=== PATIENT | female | born 1940 | race Caucasian/White ===

== ENCOUNTER → 2018-04-22 00:51 | Outpatient (CLI) | payer MEDICARE, MEDICAID, SELFPAY ==
[2018-04-22 13:07] LABS: Prothrombin Time 19.4 sec (9.3-10.8)
== END ==
PROVIDERS: PCP Family Medicine; Visit Provider Family Medicine
DX: I48.91 Unspecified atrial fibrillation (principal); Z79.01 Long term (current) use of anticoagulants
CPT/HCPCS: 36415; 85610

== ENCOUNTER → 2018-05-10 02:34 | Outpatient (CLI) | payer MEDICARE, MEDICAID, SELFPAY ==
[2018-05-10 13:21] LABS: INR 2.2 (1.0-3.5); Prothrombin Time 21.3 sec (9.3-10.8)
== END ==
PROVIDERS: PCP Family Medicine; Visit Provider Family Medicine
DX: I48.91 Unspecified atrial fibrillation (principal); Z79.01 Long term (current) use of anticoagulants
CPT/HCPCS: 36415; 85610

== ENCOUNTER 2018-06-02 02:14 | Outpatient (CLI) | payer MEDICARE, MEDICAID, SELFPAY ==
[2018-06-02 13:03] LABS: INR 1.9 (1.0-3.5)
== END 2018-06-02 02:34 ==
PROVIDERS: PCP Family Medicine; Visit Provider Family Medicine
DX: I48.91 Unspecified atrial fibrillation (principal); Z79.01 Long term (current) use of anticoagulants
CPT/HCPCS: 36415; 85610

== ENCOUNTER 2018-06-28 01:46 | Outpatient (CLI) | payer MEDICARE, MEDICAID, SELFPAY ==
[2018-06-28 11:35] LABS: INR 1.6 (1.0-3.5)
== END 2018-06-28 02:06 ==
PROVIDERS: PCP Family Medicine; Visit Provider Family Medicine
DX: I48.91 Unspecified atrial fibrillation (principal); Z79.01 Long term (current) use of anticoagulants
CPT/HCPCS: 36415; 85610

== ENCOUNTER 2018-07-07 02:21 | Outpatient (CLI) | payer MEDICARE, MEDICAID, SELFPAY ==
[2018-07-07 13:12] LABS: HCT 40.1 % (36.0-46.0); HGB 13.2 g/dL (12.0-15.5); Mean Corp. HGB Concentration 32.9 g/dL (32.0-36.0); Mean Corpuscular Hemoglobin 33.7 pg (27.0-33.0); Mean Corpuscular Volume 102.3 fL (80-95); Mean Platelet Volume 11.1 fL (8.0-11.0); Platelet Count 189 x1000/uL (130-400); RBC 3.92 m/cumm (4.00-5.20); RBC Distribution Width 13.4 % (11.7-14.6); White Blood Cell Count 6.71 k/cumm (4.4-10.8)
[2018-07-07 13:24] LABS: INR 1.4 (1.0-3.5); Prothrombin Time 13.9 sec (9.3-10.8)
[2018-07-07 13:36] LABS: Iron 81 ug/dL (50-175)
[2018-07-07 13:38] LABS: ALT 16 U/L (12-78); AST 18 U/L (15-37); Albumin 3.2 g/dL (3.4-5.0); Alkaline Phosphatase 114 U/L (46-116); Anion Gap 7.9 mmol/L (3-11); BUN 15 mg/dL (7-18); Bilirubin, Total 0.7 mg/dL (0.2-1.0); CO2 32.1 mmol/L (21.0-32.0); CREATININE 1.01 mg/dL (0.55-1.02); Calcium 9.5 mg/dL (8.5-10.1); Chloride 97 mmol/L (98-107); Estimated GFR 52.87 (mL/min/1.73m2); Glucose 93 mg/dL (70-100); Magnesium 1.5 mg/dL (1.8-2.4); Potassium 4.6 mmol/L (3.5-5.1); Sodium 137 mmol/L (136-145); TSH 1.41 uIU/mL (0.358-3.74); Total Protein 7.2 g/dL (6.4-8.2)
== END 2018-07-07 02:41 ==
PROVIDERS: PCP Family Medicine; Visit Provider Family Medicine
DX: D64.9 Anemia, unspecified (principal); E03.9 Hypothyroidism, unspecified; I48.91 Unspecified atrial fibrillation; Z79.01 Long term (current) use of anticoagulants
CPT/HCPCS: 36415; 80053; 85027; 83540; 83735; 84443; 85610

== ENCOUNTER 2018-07-14 01:00 | Outpatient (CLI) | payer MEDICARE, MEDICAID, SELFPAY ==
[2018-07-14 13:12] LABS: INR 2.4 (1.0-3.5); Prothrombin Time 22.3 sec (9.3-10.8)
== END 2018-07-14 01:20 ==
PROVIDERS: PCP Family Medicine; Visit Provider Family Medicine
DX: Z79.01 Long term (current) use of anticoagulants (principal); I48.91 Unspecified atrial fibrillation
CPT/HCPCS: 36415; 85610

== ENCOUNTER 2018-08-04 01:44 | Outpatient (CLI) | payer MEDICARE, MEDICAID, SELFPAY ==
[2018-08-04 11:37] LABS: INR 3.4 (1.0-3.5); Prothrombin Time 31.4 sec (9.3-10.8)
== END 2018-08-04 02:04 ==
PROVIDERS: PCP Family Medicine; Visit Provider Family Medicine
DX: I48.91 Unspecified atrial fibrillation (principal); Z79.01 Long term (current) use of anticoagulants
CPT/HCPCS: 36415; 85610

== ENCOUNTER 2018-08-10 01:33 | Outpatient (CLI) | payer MEDICARE, MEDICAID, SELFPAY ==
[2018-08-10 13:33] LABS: INR 2.6 (1.0-3.5); Prothrombin Time 24.9 sec (9.3-10.8)
== END 2018-08-10 01:53 ==
PROVIDERS: PCP Family Medicine; Visit Provider Family Medicine
DX: I48.91 Unspecified atrial fibrillation (principal); Z79.01 Long term (current) use of anticoagulants
CPT/HCPCS: 36415; 85610

== ENCOUNTER 2018-08-18 02:15 | Outpatient (CLI) | payer MEDICARE, MEDICAID, SELFPAY ==
[2018-08-18 11:46] LABS: INR 2.4 (1.0-3.5); Prothrombin Time 23.1 sec (9.3-10.8)
== END 2018-08-18 02:35 ==
PROVIDERS: PCP Family Medicine; Visit Provider Family Medicine
DX: I48.91 Unspecified atrial fibrillation (principal); Z79.01 Long term (current) use of anticoagulants
CPT/HCPCS: 36415; 85610

== ENCOUNTER 2018-09-01 01:59 | Outpatient (CLI) | payer MEDICARE, MEDICAID, SELFPAY ==
[2018-09-01 11:39] LABS: Prothrombin Time 44.9 sec (9.3-10.8)
[2018-09-01 11:46] LABS: INR 4.9 (1.0-3.5)
== END 2018-09-01 02:19 ==
PROVIDERS: PCP Family Medicine; Visit Provider Family Medicine
DX: I48.91 Unspecified atrial fibrillation (principal); Z79.01 Long term (current) use of anticoagulants
CPT/HCPCS: 36415; 85610

== ENCOUNTER 2018-09-02 08:18 | Outpatient (CLI) | payer MEDICARE, MEDICAID, SELFPAY ==
[2018-09-02 13:32] LABS: Prothrombin Time 50.5 sec (9.3-11.0)
== END 2018-09-02 08:38 ==
PROVIDERS: PCP Family Medicine; Visit Provider Family Medicine
DX: Z79.01 Long term (current) use of anticoagulants (principal); I48.91 Unspecified atrial fibrillation
CPT/HCPCS: 36415; 85610

== ENCOUNTER 2018-09-05 02:27 | Outpatient (CLI) | payer MEDICARE, MEDICAID, SELFPAY ==
[2018-09-05 13:26] LABS: INR 2.2 (1.0-3.5); Prothrombin Time 22.6 sec (9.3-11.0)
== END 2018-09-05 02:47 ==
PROVIDERS: PCP Family Medicine; Visit Provider Family Medicine
DX: I48.91 Unspecified atrial fibrillation (principal); Z79.01 Long term (current) use of anticoagulants
CPT/HCPCS: 36415; 85610

== ENCOUNTER 2018-09-22 02:37 | Outpatient (CLI) | payer MEDICARE, MEDICAID, SELFPAY ==
[2018-09-22 11:57] LABS: Prothrombin Time 40.7 sec (9.3-11.0)
== END 2018-09-22 02:57 ==
PROVIDERS: PCP Family Medicine; Visit Provider Family Medicine
DX: I48.91 Unspecified atrial fibrillation (principal); Z79.01 Long term (current) use of anticoagulants
CPT/HCPCS: 36415; 85610

== ENCOUNTER 2018-10-04 02:04 | Outpatient (CLI) | payer MEDICARE, MEDICAID, SELFPAY ==
[2018-10-04 16:41] LABS: INR 2.8 (0.9-1.1); Prothrombin Time 28.4 sec (9.3-11.0)
== END 2018-10-04 02:24 ==
PROVIDERS: PCP Family Medicine; Visit Provider Family Medicine
DX: I48.91 Unspecified atrial fibrillation (principal); Z79.01 Long term (current) use of anticoagulants
CPT/HCPCS: 36415; 85610

== ENCOUNTER 2018-10-18 11:03 | Outpatient (CLI) | payer MEDICARE, MEDICAID, SELFPAY ==
[2018-10-18 13:49] LABS: INR 2.6 (0.9-1.1); Prothrombin Time 26.6 sec (9.3-11.0)
== END 2018-10-18 11:23 ==
PROVIDERS: PCP Family Medicine; Visit Provider Family Medicine
DX: I48.91 Unspecified atrial fibrillation (principal); Z79.01 Long term (current) use of anticoagulants
CPT/HCPCS: 36415; 85610

== ENCOUNTER 2018-11-03 07:33 | Outpatient (CLI) | payer MEDICARE, MEDICAID, SELFPAY ==
[2018-11-03 13:25] LABS: INR 3.5 (0.9-1.1); Prothrombin Time 35.5 sec (9.3-11.0)
== END 2018-11-03 07:53 ==
PROVIDERS: PCP Family Medicine; Visit Provider Family Medicine
DX: I48.91 Unspecified atrial fibrillation (principal); Z79.01 Long term (current) use of anticoagulants
CPT/HCPCS: 36415; 85610

== ENCOUNTER 2018-11-17 11:07 | Outpatient (CLI) | payer MEDICARE, MEDICAID, SELFPAY ==
[2018-11-17 12:59] LABS: Prothrombin Time 50.9 sec (9.3-11.0)
== END 2018-11-17 11:27 ==
PROVIDERS: PCP Family Medicine; Visit Provider Family Medicine
DX: I48.91 Unspecified atrial fibrillation (principal); Z79.01 Long term (current) use of anticoagulants
CPT/HCPCS: 36415; 85610

== ENCOUNTER 2018-11-18 10:35 | Outpatient (CLI) | payer MEDICARE, MEDICAID, SELFPAY ==
[2018-11-18 13:19] LABS: Prothrombin Time 63.4 sec (9.3-11.0)
[2018-11-18 13:35] LABS: INR 6.2 (0.9-1.1)
== END 2018-11-18 10:55 ==
PROVIDERS: PCP Family Medicine; Visit Provider Family Medicine
DX: I48.91 Unspecified atrial fibrillation (principal); Z79.01 Long term (current) use of anticoagulants
CPT/HCPCS: 36415; 85610

== ENCOUNTER 2018-11-21 10:08 | Outpatient (CLI) | payer MEDICARE, MEDICAID, SELFPAY ==
[2018-11-21 12:21] LABS: INR 2.8 (0.9-1.1); Prothrombin Time 28.4 sec (9.3-11.0)
== END 2018-11-21 10:28 ==
PROVIDERS: PCP Family Medicine; Visit Provider Family Medicine
DX: I48.91 Unspecified atrial fibrillation (principal); Z79.01 Long term (current) use of anticoagulants
CPT/HCPCS: 36415; 85610

== ENCOUNTER 2018-11-29 02:54 | Outpatient (CLI) | payer MEDICARE, MEDICAID, SELFPAY ==
[2018-11-29 12:56] LABS: INR 1.5 (0.9-1.1)
== END 2018-11-29 03:14 ==
PROVIDERS: PCP Family Medicine; Visit Provider Family Medicine
DX: I48.91 Unspecified atrial fibrillation (principal); Z79.01 Long term (current) use of anticoagulants
CPT/HCPCS: 36415; 85610

== ENCOUNTER 2018-12-06 02:27 | Outpatient (CLI) | payer MEDICARE, MEDICAID, SELFPAY ==
[2018-12-06 13:04] LABS: INR 1.7 (0.9-1.1); Prothrombin Time 16.9 sec (9.3-11.0)
== END 2018-12-06 02:47 ==
PROVIDERS: PCP Family Medicine; Visit Provider Family Medicine
DX: I48.91 Unspecified atrial fibrillation (principal); Z79.01 Long term (current) use of anticoagulants
CPT/HCPCS: 36415; 85610

== ENCOUNTER 2018-12-15 00:50 | Outpatient (CLI) | payer MEDICARE, MEDICAID, SELFPAY ==
[2018-12-15 12:52] LABS: INR 2.9 (0.9-1.1); Prothrombin Time 29.3 sec (9.3-11.0)
== END 2018-12-15 01:10 ==
PROVIDERS: PCP Family Medicine; Visit Provider Family Medicine
DX: I48.91 Unspecified atrial fibrillation (principal); Z79.01 Long term (current) use of anticoagulants
CPT/HCPCS: 36415; 85610

== ENCOUNTER 2018-12-30 01:31 | Outpatient (CLI) | payer MEDICARE, MEDICAID, SELFPAY ==
[2018-12-30 12:36] LABS: INR 1.6 (0.9-1.1); Prothrombin Time 16.1 sec (9.3-11.0)
[2018-12-30 12:49] LABS: ALT 17 U/L (12-78); AST 20 U/L (15-37); Albumin 3.2 g/dL (3.4-5.0); Alkaline Phosphatase 101 U/L (46-116); Anion Gap 7.7 mmol/L (3-11); BUN 11 mg/dL (7-18); Bilirubin, Total 0.5 mg/dL (0.2-1.0); CO2 29.3 mmol/L (21.0-32.0); Calcium 8.7 mg/dL (8.5-10.1); Chloride 97 mmol/L (98-107); Estimated GFR 53.48 (mL/min/1.73m2); Glucose 87 mg/dL (70-100); Magnesium 1.2 mg/dL (1.8-2.4); Potassium 4.1 mmol/L (3.5-5.1); Sodium 134 mmol/L (136-145); Total Protein 6.9 g/dL (6.4-8.2)
== END 2018-12-30 01:51 ==
PROVIDERS: PCP Family Medicine; Visit Provider Family Medicine
DX: I10 Essential (primary) hypertension (principal); E83.42 Hypomagnesemia; I48.91 Unspecified atrial fibrillation; Z79.01 Long term (current) use of anticoagulants
CPT/HCPCS: 36415; 80053; 83735; 85610

== ENCOUNTER 2019-01-10 02:37 | Outpatient (CLI) | payer MEDICARE, MEDICAID, SELFPAY ==
[2019-01-10 13:14] LABS: INR 2.4 (0.9-1.1); Prothrombin Time 24.1 sec (9.3-11.0)
== END 2019-01-10 02:57 ==
PROVIDERS: PCP Family Medicine; Visit Provider Family Medicine
DX: I48.91 Unspecified atrial fibrillation (principal); Z79.01 Long term (current) use of anticoagulants
CPT/HCPCS: 36415; 85610

== ENCOUNTER 2019-02-03 02:40 | Outpatient (CLI) | payer MEDICARE, MEDICAID, SELFPAY ==
[2019-02-03 12:43] LABS: INR 2.3 (0.9-1.1); Prothrombin Time 23.4 sec (9.3-11.0)
== END 2019-02-03 03:00 ==
PROVIDERS: PCP Family Medicine; Visit Provider Family Medicine
DX: I48.91 Unspecified atrial fibrillation (principal); Z79.01 Long term (current) use of anticoagulants
CPT/HCPCS: 36415; 85610

== ENCOUNTER 2019-02-24 03:08 | Outpatient (CLI) | payer MEDICARE, MEDICAID, SELFPAY ==
[2019-02-24 13:16] LABS: Prothrombin Time 46.2 sec (9.3-11.0)
[2019-02-24 13:35] LABS: INR 4.5 (0.9-1.1)
== END 2019-02-24 03:28 ==
PROVIDERS: PCP Family Medicine; Visit Provider Family Medicine
DX: I48.91 Unspecified atrial fibrillation (principal); Z79.01 Long term (current) use of anticoagulants
CPT/HCPCS: 36415; 85610

== ENCOUNTER 2019-02-26 04:41 | Outpatient (CLI) | payer MEDICARE, MEDICAID, SELFPAY ==
[2019-02-26 10:48] LABS: INR 3.2 (0.9-1.1); Prothrombin Time 32.6 sec (9.3-11.0)
== END 2019-02-26 05:01 ==
PROVIDERS: PCP Family Medicine; Visit Provider Family Medicine
DX: I48.91 Unspecified atrial fibrillation (principal); Z79.01 Long term (current) use of anticoagulants
CPT/HCPCS: 36415; 85610

== ENCOUNTER 2019-03-06 02:07 | Outpatient (CLI) | payer MEDICARE, MEDICAID, SELFPAY ==
[2019-03-06 12:59] LABS: Anion Gap 7.9 mmol/L (3-11); BUN 13 mg/dL (7-18); CO2 33.1 mmol/L (21.0-32.0); CREATININE 1.23 mg/dL (0.55-1.02); Chloride 92 mmol/L (98-107); Estimated GFR 42.01 (mL/min/1.73m2); Glucose 98 mg/dL (70-100); INR 1.6 (0.9-1.1); Magnesium 1.4 mg/dL (1.8-2.4); Potassium 4.3 mmol/L (3.5-5.1); Prothrombin Time 16.2 sec (9.3-11.0); Sodium 133 mmol/L (136-145)
== END 2019-03-06 02:27 ==
PROVIDERS: PCP Family Medicine; Visit Provider Family Medicine
DX: E83.42 Hypomagnesemia (principal); E87.1 Hypo-osmolality and hyponatremia; I48.91 Unspecified atrial fibrillation; Z79.01 Long term (current) use of anticoagulants
CPT/HCPCS: 36415; 80048; 83735; 85610

== ENCOUNTER 2019-03-14 01:47 | Outpatient (CLI) | payer MEDICARE, MEDICAID, SELFPAY ==
[2019-03-14 13:07] LABS: INR 1.3 (0.9-1.1); Prothrombin Time 12.7 sec (9.3-11.0)
== END 2019-03-14 02:07 ==
PROVIDERS: PCP Family Medicine; Visit Provider Family Medicine
DX: I48.91 Unspecified atrial fibrillation (principal); Z79.01 Long term (current) use of anticoagulants
CPT/HCPCS: 36415; 85610

== ENCOUNTER 2019-03-22 01:27 | Outpatient (CLI) | payer MEDICARE, MEDICAID, SELFPAY ==
[2019-03-22 12:11] LABS: INR 1.5 (0.9-1.1)
== END 2019-03-22 01:47 ==
PROVIDERS: PCP Family Medicine; Visit Provider Family Medicine
DX: I48.91 Unspecified atrial fibrillation (principal); Z79.01 Long term (current) use of anticoagulants
CPT/HCPCS: 36415; 85610

== ENCOUNTER 2019-03-28 02:12 | Outpatient (CLI) | payer MEDICARE, MEDICAID, SELFPAY ==
[2019-03-28 12:46] LABS: INR 2.1 (0.9-1.1); Prothrombin Time 21.3 sec (9.3-11.0)
== END 2019-03-28 02:32 ==
PROVIDERS: PCP Family Medicine; Visit Provider Family Medicine
DX: I48.91 Unspecified atrial fibrillation (principal); Z79.01 Long term (current) use of anticoagulants
CPT/HCPCS: 36415; 85610

== ENCOUNTER 2019-04-06 02:13 | Outpatient (CLI) | payer MEDICARE, MEDICAID, SELFPAY | END 2019-04-06 02:33 | PROVIDERS: PCP Family Medicine; Visit Provider Family Medicine | DX: R69 Illness, unspecified (principal) ==

== ENCOUNTER 2019-04-07 02:49 | Outpatient (CLI) | payer MEDICARE, MEDICAID, SELFPAY ==
[2019-04-07 12:44] LABS: INR 3.4 (0.9-1.1); Prothrombin Time 34.4 sec (9.3-11.0)
== END 2019-04-07 03:09 ==
PROVIDERS: PCP Family Medicine; Visit Provider Family Medicine
DX: I48.91 Unspecified atrial fibrillation (principal); Z79.01 Long term (current) use of anticoagulants
CPT/HCPCS: 36415; 85610

== ENCOUNTER 2019-04-18 01:38 | Outpatient (CLI) | payer MEDICARE, MEDICAID, SELFPAY ==
[2019-04-18 12:34] LABS: INR 2.6 (0.9-1.1); Prothrombin Time 26.7 sec (9.3-11.0)
== END 2019-04-18 01:58 ==
PROVIDERS: PCP Family Medicine; Visit Provider Family Medicine
DX: I48.91 Unspecified atrial fibrillation (principal); Z79.01 Long term (current) use of anticoagulants
CPT/HCPCS: 36415; 85610

== ENCOUNTER 2019-05-02 02:26 | Outpatient (CLI) | payer MEDICARE, MEDICAID, SELFPAY ==
[2019-05-02 13:12] LABS: INR 2.6 (0.9-1.1); Prothrombin Time 26.3 sec (9.3-11.0)
== END 2019-05-02 02:46 ==
PROVIDERS: PCP Family Medicine; Visit Provider Family Medicine
DX: I48.91 Unspecified atrial fibrillation (principal); Z79.01 Long term (current) use of anticoagulants
CPT/HCPCS: 36415; 85610

== ENCOUNTER 2019-05-12 04:06 | Outpatient (CLI) | payer MEDICARE, MEDICAID, SELFPAY ==
[2019-05-12 13:22] LABS: Prothrombin Time 47.6 sec (9.3-11.0)
[2019-05-12 13:44] LABS: INR 4.7 (0.9-1.1)
== END 2019-05-12 04:26 ==
PROVIDERS: PCP Family Medicine; Visit Provider Family Medicine
DX: I48.91 Unspecified atrial fibrillation (principal); Z79.01 Long term (current) use of anticoagulants
CPT/HCPCS: 36415; 85610

== ENCOUNTER 2019-05-15 02:00 | Outpatient (CLI) | payer MEDICARE, MEDICAID, SELFPAY ==
[2019-05-15 12:47] LABS: INR 2.7 (0.9-1.1); Prothrombin Time 27.1 sec (9.3-11.0)
== END 2019-05-15 02:20 ==
PROVIDERS: PCP Family Medicine; Visit Provider Family Medicine
DX: I48.91 Unspecified atrial fibrillation (principal); Z79.01 Long term (current) use of anticoagulants
CPT/HCPCS: 36415; 85610

== ENCOUNTER 2019-05-25 03:31 | Outpatient (CLI) | payer MEDICARE, MEDICAID, SELFPAY ==
[2019-05-25 11:30] LABS: Prothrombin Time 34.9 sec (9.3-11.0)
[2019-05-25 11:34] LABS: INR 3.4 (0.9-1.1)
== END 2019-05-25 03:51 ==
PROVIDERS: PCP Family Medicine; Visit Provider Family Medicine
DX: I48.91 Unspecified atrial fibrillation (principal); Z79.01 Long term (current) use of anticoagulants
CPT/HCPCS: 36415; 85610

== ENCOUNTER 2019-06-01 02:30 | Outpatient (CLI) | payer MEDICARE, MEDICAID, SELFPAY ==
[2019-06-01 12:55] LABS: INR 1.9 (0.9-1.1); Prothrombin Time 19.3 sec (9.3-11.0)
== END 2019-06-01 02:50 ==
PROVIDERS: PCP Family Medicine; Visit Provider Family Medicine
DX: I48.91 Unspecified atrial fibrillation (principal); Z79.01 Long term (current) use of anticoagulants
CPT/HCPCS: 36415; 85610

== ENCOUNTER 2019-06-08 01:46 | Outpatient (CLI) | payer MEDICARE, MEDICAID, SELFPAY ==
[2019-06-08 13:13] LABS: INR 1.5 (0.9-1.1); Prothrombin Time 15.3 sec (9.3-11.0)
== END 2019-06-08 02:06 ==
PROVIDERS: PCP Family Medicine; Visit Provider Family Medicine
DX: I48.91 Unspecified atrial fibrillation (principal); Z79.01 Long term (current) use of anticoagulants
CPT/HCPCS: 36415; 85610

== ENCOUNTER 2019-06-15 09:00 | Outpatient (CLI) | payer MEDICARE, MEDICAID, SELFPAY ==
[2019-06-15 12:50] LABS: INR 1.3 (0.9-1.1)
== END 2019-06-15 09:20 ==
PROVIDERS: PCP Family Medicine; Visit Provider Family Medicine
DX: I48.91 Unspecified atrial fibrillation (principal); Z79.01 Long term (current) use of anticoagulants
CPT/HCPCS: 36415; 85610

== ENCOUNTER 2019-06-22 01:31 | Outpatient (CLI) | payer MEDICARE, MEDICAID, SELFPAY ==
[2019-06-22 13:21] LABS: INR 1.4 (0.9-1.1); Prothrombin Time 14.2 sec (9.3-11.0)
== END 2019-06-22 01:51 ==
PROVIDERS: PCP Family Medicine; Visit Provider Family Medicine
DX: I48.91 Unspecified atrial fibrillation (principal); Z79.01 Long term (current) use of anticoagulants
CPT/HCPCS: 36415; 85610

== ENCOUNTER 2019-06-30 02:43 | Outpatient (CLI) | payer MEDICARE, MEDICAID, SELFPAY ==
[2019-06-30 13:29] LABS: INR 1.8 (0.9-1.1); Prothrombin Time 18.1 sec (9.3-11.0)
== END 2019-06-30 03:03 ==
PROVIDERS: PCP Family Medicine; Visit Provider Family Medicine
DX: I48.91 Unspecified atrial fibrillation (principal); Z79.01 Long term (current) use of anticoagulants
CPT/HCPCS: 36415; 85610

== ENCOUNTER 2019-07-06 08:09 | Outpatient (CLI) | payer MEDICARE, MEDICAID, SELFPAY ==
[2019-07-06 13:15] LABS: INR 3.4 (0.9-1.1); Prothrombin Time 33.1 sec (9.3-11.0)
== END 2019-07-06 08:29 ==
PROVIDERS: PCP Family Medicine; Visit Provider Family Medicine
DX: I48.91 Unspecified atrial fibrillation (principal); Z79.01 Long term (current) use of anticoagulants
CPT/HCPCS: 36415; 85610

== ENCOUNTER 2019-07-18 02:43 | Outpatient (CLI) | payer MEDICARE, MEDICAID, SELFPAY ==
[2019-07-18 13:08] LABS: INR 3.2 (0.9-1.1); Prothrombin Time 31.4 sec (9.3-11.0)
== END 2019-07-18 03:03 ==
PROVIDERS: PCP Family Medicine; Visit Provider Family Medicine
DX: I48.91 Unspecified atrial fibrillation (principal); Z79.01 Long term (current) use of anticoagulants
CPT/HCPCS: 36415; 85610

== ENCOUNTER 2019-07-27 00:05 | Outpatient (CLI) | payer MEDICARE, MEDICAID, SELFPAY ==
[2019-07-27 12:50] LABS: HCT 37.2 % (36.0-46.0); HGB 12.4 g/dL (12.0-15.5); Mean Corp. HGB Concentration 33.3 g/dL (32.0-36.0); Mean Corpuscular Hemoglobin 34.3 pg (27.0-33.0); Mean Corpuscular Volume 102.8 fL (80-95); Mean Platelet Volume 10.8 fL (8.0-11.0); Platelet Count 255 x1000/uL (130-400); RBC 3.62 m/cumm (4.00-5.20); RBC Distribution Width 12.8 % (11.7-14.6); White Blood Cell Count 6.97 k/cumm (4.4-10.8)
[2019-07-27 13:06] LABS: Iron 127 ug/dL (50-175)
[2019-07-27 13:23] LABS: Prothrombin Time 19.9 sec (9.3-11.0)
[2019-07-27 13:28] LABS: ALT 18 U/L (14-59); AST 23 U/L (15-37); Albumin 3.1 g/dL (3.4-5.0); Alkaline Phosphatase 103 U/L (46-116); Anion Gap 7.2 mmol/L (3-11); BUN 11 mg/dL (7-18); Bilirubin, Total 0.7 mg/dL (0.2-1.0); CO2 31.8 mmol/L (21.0-32.0); CREATININE 1.23 mg/dL (0.55-1.02); Chloride 94 mmol/L (98-107); Estimated GFR 42.01 (mL/min/1.73m2); Ferritin 160 ng/mL (8-388); GGT 75 U/L (5-55); Glucose 103 mg/dL (70-100); Magnesium 1.3 mg/dL (1.8-2.4); Potassium 3.9 mmol/L (3.5-5.1); Sodium 133 mmol/L (136-145); TSH 1.27 uIU/mL (0.36-3.74)
== END 2019-07-27 00:25 ==
PROVIDERS: PCP Family Medicine; Visit Provider Family Medicine
DX: D64.9 Anemia, unspecified (principal); I10 Essential (primary) hypertension; E03.9 Hypothyroidism, unspecified; F10.21 Alcohol dependence, in remission; E83.42 Hypomagnesemia; I48.91 Unspecified atrial fibrillation; Z79.01 Long term (current) use of anticoagulants
CPT/HCPCS: 36415; 80053; 85027; 82728; 82977; 83540; 83735; 84443; 85610

== ENCOUNTER 2019-08-10 03:21 | Outpatient (CLI) | payer MEDICARE, MEDICAID, SELFPAY ==
[2019-08-10 13:10] LABS: INR 1.7 (0.9-1.1); Prothrombin Time 17.2 sec (9.3-11.0)
== END 2019-08-10 03:41 ==
PROVIDERS: PCP Family Medicine; Visit Provider Family Medicine
DX: I48.91 Unspecified atrial fibrillation (principal); Z79.01 Long term (current) use of anticoagulants
CPT/HCPCS: 36415; 85610

== ENCOUNTER 2019-08-31 01:38 | Outpatient (CLI) | payer MEDICARE, MEDICAID, SELFPAY ==
[2019-08-31 13:20] LABS: Prothrombin Time 58.2 sec (9.3-11.0)
[2019-08-31 13:25] LABS: INR 6.1 (0.9-1.1)
== END 2019-08-31 01:58 ==
PROVIDERS: PCP Family Medicine; Visit Provider Family Medicine
DX: I48.91 Unspecified atrial fibrillation (principal); Z79.01 Long term (current) use of anticoagulants
CPT/HCPCS: 36415; 85610

== ENCOUNTER 2019-09-05 08:21 | Outpatient (CLI) | payer MEDICARE, MEDICAID, SELFPAY ==
[2019-09-05 13:18] LABS: INR 2.3 (0.9-1.1); Prothrombin Time 22.3 sec (9.3-11.0)
== END 2019-09-05 08:41 ==
PROVIDERS: PCP Family Medicine; Visit Provider Family Medicine
DX: I48.91 Unspecified atrial fibrillation (principal); Z79.01 Long term (current) use of anticoagulants
CPT/HCPCS: 36415; 85610

== ENCOUNTER 2019-09-14 02:29 | Outpatient (CLI) | payer MEDICARE, MEDICAID, SELFPAY ==
[2019-09-14 12:47] LABS: Prothrombin Time 43.5 sec (9.3-11.0)
[2019-09-14 12:50] LABS: INR 4.5 (0.9-1.1)
== END 2019-09-14 02:49 ==
PROVIDERS: PCP Family Medicine; Visit Provider Family Medicine
DX: I48.91 Unspecified atrial fibrillation (principal); Z79.01 Long term (current) use of anticoagulants
CPT/HCPCS: 36415; 85610

== ENCOUNTER 2019-09-21 03:09 | Outpatient (CLI) | payer MEDICARE, MEDICAID, SELFPAY ==
[2019-09-21 13:34] LABS: INR 1.7 (0.9-1.1); Prothrombin Time 17.1 sec (9.3-11.0)
== END 2019-09-21 03:29 ==
PROVIDERS: PCP Family Medicine; Visit Provider Family Medicine
DX: I48.91 Unspecified atrial fibrillation (principal); Z79.01 Long term (current) use of anticoagulants
CPT/HCPCS: 36415; 85610

== ENCOUNTER 2019-09-24 12:30 | Outpatient (CLI) | payer MEDICARE, MEDICAID, SELFPAY | END 2019-09-24 12:50 | PROVIDERS: PCP Family Medicine; Referring Provider Psychiatry & Neurology Neurology; Visit Provider Internal Medicine Cardiovascular Disease | DX: I63.9 Cerebral infarction, unspecified (principal); I48.91 Unspecified atrial fibrillation; I47.2 Ventricular tachycardia | CPT/HCPCS: 93272 ==

== ENCOUNTER 2019-09-28 01:57 | Outpatient (CLI) | payer MEDICARE, MEDICAID, SELFPAY ==
[2019-09-28 13:38] LABS: INR 3.7 (0.9-1.1); Prothrombin Time 35.9 sec (9.3-11.0)
== END 2019-09-28 02:17 ==
PROVIDERS: PCP Family Medicine; Visit Provider Family Medicine
DX: I48.91 Unspecified atrial fibrillation (principal); Z79.01 Long term (current) use of anticoagulants
CPT/HCPCS: 36415; 85610

== ENCOUNTER 2019-10-06 01:17 | Outpatient (CLI) | payer MEDICARE, MEDICAID, SELFPAY ==
[2019-10-06 13:26] LABS: INR 1.9 (0.9-1.1)
== END 2019-10-06 01:37 ==
PROVIDERS: PCP Family Medicine; Visit Provider Family Medicine
DX: I48.91 Unspecified atrial fibrillation (principal); Z79.01 Long term (current) use of anticoagulants
CPT/HCPCS: 36415; 85610

== ENCOUNTER 2019-10-19 01:07 | Outpatient (CLI) | payer MEDICARE, MEDICAID, SELFPAY ==
[2019-10-19 12:36] LABS: INR 1.5 (0.9-1.1)
--- NOTE | 2019-10-24 11:10 | INDS_ITS ---
Date of service: 10/24/19 Time of Service: 11:10 PT Notes PT Inpatient Discharge Summary Date: 10/21/2019 Dates of Service: 10/21/2019 through 10/23/2019 This is a clinical summary of care provided on the duration of dates listed above. No charge was made in the completion of this documentation. Referring Doctor: Eliezer Hernandez M.D. PT Orders: PT CONSULT: Eval for Assistive Device Precautions: Fall. Standard. Activity as tolerated. WBAT on R LE. Patient Profile/Admitting Diagnosis: Patient is an 79-year-old female with history of left total hip arthroplasty that presented to the ER on 10/20/2019 status post a fall in her apartment. Diagnoses of a mildly comminuted displaced fracture of the right pubic bone, minimally displaced fracture of the right inferior pubic ramus, and right sacral ala fracture. PMHX: Medical History (Updated 10/20/19 @ 07:03 by Marshall Rowell MD) Atrial fibrillation (Chronic) Cardioversion and Amiodarone in 2012: successfull but reverted 1 week later- amiodarone d/c /ON COUMADIN Cardiomyopathy (Chronic) unclear etiology/ EF as low as 25% in 2012-back up around 50% post a.fib. rate regulated and post infection/poss. A.Fib. 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 Her granddaughter lives about 20 minutes away and daughter lives within driving distance. She reports that she no longer drives. Has a friend bring her grocery shopping and takes [employer] to doctors appointments. Equipment Owned/DME: walker and cane Subjective: NT Objective: General Observation: NT Mental Status: NT Pain: NT ROM: Right Upper Extremity: Shoulder Flexion WFL. Shoulder abduction WFL. Elbow flexion WFL. Wrist flexion WFL. Opening and closing of hand WFL. Left Upper Extremity: Shoulder Flexion WFL. Shoulder abduction WFL. Elbow flexion WFL. Wrist flexion WFL. Opening and closing of hand WFL. Right Lower Extremity: Hip flexion WFL with increased pain. Hip abduction WFL. Knee flexion WFL. Ankle dorsiflexion WFL. Ankle plantarflexion WFL. Left Lower Extremity: Hip flexion WFL. Hip abduction WFL. Knee flexion WFL. Ankle dorsiflexion WFL. Ankle plantarflexion WFL. Strength: Right Upper Extremity: Shoulder flexors 3/5. Shoulder abductors 3/5. Elbow flexors 5/5. Elbow extensors 5/5. Learning Technologist strong. Left Upper Extremity: Shoulder flexors 3/5. Shoulder abductors 3/5. Elbow flexors 5/5. Elbow extensors 5/5. Learning Technologist strong. Right Lower Extremity: Hip flexors 3+/5 (painful). Hip abductors 5/5. Knee fl exors 5/5. Knee extensors 5/5. Ankle dorsiflexors 5/5. Ankle plantarflexors 5/5. Left Lower Extremity: Hip flexors 5/5. Hip abductors 5/5. Knee flexors 5/5. Knee extensors 5/5. Ankle dorsiflexors 5/5. Ankle plantarflexors 5/5. Sensation: Intact as to pain and pressure on bilateral lower extremities. Bed Mobility/Transfers: Supine to sit SBA Sit to supine SBA Sit to stand SBA Stand to sit SBA Bed to chair SBA Chair to bed SBA Gait: Patient was able to ambulate 5 steps forward, able to side step 4 steps to bed as well as complete 3 steps backwards, WBAT on the R LE, using a front- wheeled walker. CGA provided by PT . Asymmetrical step length and height. Decreased velocity. Unable to lift R LE off of the ground to advance forward, primarily slides right LE across the floor. Balance: Static Sitting: Normal Dynamic Sitting: Normal Static Standing: Poor Dynamic Standing: Poor Assessment: Patient is an 79-year-old female with history of left total hip arthroplasty that presented to the ED on 10/20/2019 status post a fall in her apartment. Diagnosed with a mildly comminuted displaced fracture of the right pubic bone, minimally displaced fracture of the right inferior pubic ramus, and right sacral ala fracture. Pt presents with impairment level findings and functional limitations as presented below that limit her ability to safely return home. AM-PAC raw score of 14 with 61% deficit suggests good prognosis for improvement at a senior living facility. She would continue to benefit from intensive physical therapy for a safe return to home. Currently awaiting transfer to Rehab facility to achieve goals listed below. Patient presented with clinical signs and symptoms consistent with current/admitting diagnoses that have resulted to mobility limitations, gait instability, and generalized weakness demonstrated by the following impairment level findings: 1. Decreased strength to R hip major muscle groups 2. Impaired sitting/standing balance 3. Impaired activity tolerance Impairments continue to contribute to the following functional limitations: 1. Dependent bed mobility skills 2. Increased dependence with transfers 3. Inability to safely ambulate without assistive device and physical assistance 4. Increase completion time for mobility ADL performance 5. Increased fall risk 6. Inability to negotiate steps alone safely Goals: Goals X1 week 1. Supine-Sit CGA MET 2. Sit-Supine Dulce with LE MET 3. Sit-Stand S with FWW NOT MET 4. Stand-Sit S NOT MET 5. Bed-Chair S with FWW NOT MET 6. Chair-Bed S with FWW NOT MET 7. Gait CGA with FWW 25 ft or greater NOT MET 8. Independent with home exercise program NOT MET 9. Improved standing balance DISCHARGE RECOMMENDATIONS: Assisted Facility/ Rehab for continued skilled physical therapy services in order to progress mobility level, strength, and balance to promote a safe return home. Patient should continue with use of FWW for ambulation. TREATMENT CODE/TIME: NC. Thank you very much for this referral. Rose Ladd PT, DPT, CLT [facility] Inpatient PT at [facility]
== END 2019-10-19 01:27 ==
PROVIDERS: PCP Family Medicine; Visit Provider Family Medicine
DX: I48.91 Unspecified atrial fibrillation (principal); Z79.01 Long term (current) use of anticoagulants
CPT/HCPCS: 36415; 85610

== ENCOUNTER 2019-10-20 06:59 | Inpatient (IN) | payer MEDICARE, MEDICAID, SELFPAY ==
[2019-10-20] VITALS (17 sets, daily range): BP systolic 107–159; BP diastolic 63–94; PULSE 79–113; RESP 12–21; TEMP 36.4–37.1; O2SAT 95–98
--- NOTE | 2019-10-20 07:01 | ED.GENADUL_ITS ---
Discharge Plan Disposition Patient Disposition: [facility] Condition: Stable Discharge Details Chief Complaint: Orthopedic Clinical Impression: Closed pelvic fracture Admit Date/Time: 10/20/19 14:17 Admit Provider: Eliezer Hernandez Attending Provider: Eliezer Hernandez Primary Care Provider: Mary Bee ED Provider: Eliezer Jara Discharge Data Discharge Date/Time-TO BE ENTERED AT DEPARTURE: 10/20/19 16:20 Medical Decision Making <Marshall Rowell MD - Last Filed: 10/24/19 00:05> I do not think patient fractured her hip. Possible that she is going to have rami fracture on the right. She is pretty comfortable at this point. She is hemodynamically stable. She is on Coumadin but at this point will obtain pelvis x-ray to evaluate for fracture. If present will consider IV placement, labs, CT pelvis to rule out hematoma. She did not strike her head. She has no head or neck pain and despite anticoagulation does not need imaging of the head. 07:35 - Patient does have pelvis fx on x-ray. Will place IV and get labs. CT of pelvis with contrast to evaluate for hematoma. Patient aware. <Eliezer Jara MD - Last Filed: 10/20/19 14:16> ct confirms stable pelvic fracture, no significant hemorrhage per Dr. Hewitt. Discussed with Dr. Sutton and agreed to operative intervention, weight bearing as tolerated and f/u with pcp. Discussed with patient and daughter, will have PT evaluate for disposition PT evalauted and felt subacute rehab is needed unfortunately [facility] until Wednesday per care management. Spoke with Dr. Hernandez who accepts for admission to swing bed Imaging Data Radiologic Study: Attestation: I personally reviewed and interpreted this imaging study as follows: Imaging: CT Scan Radiologist's impression: CT examination of the pelvis was performed with intravenous infusion of 100 cc of Omnipaque 350. There is a total hip joint replacement in position on the left which obscures left acetabular/femoral detail somewhat. There are severe degenerative changes of the right hip. There is a mildly comminuted mildly displaced fracture of the right pubic bone adjacent to this symphysis. There is a minimally displaced fracture of the inferior pubic ramus as well. No acetabular fracture seen. There is nondisplaced right sacral ala fracture adjacent to the SI joint. No additional fracture seen. Small right pelvic sidewall hematoma and Lindsey symphyseal hematoma noted. No evidence vascular injury or active contrast extravasation. No evidence of injury of the visualized abdominal organs. No free air or free fluid identified in the pelvis.] Lab Data Lab results reviewed: Yes I reviewed the patient's lab results. HPI <Marshall Rowell MD - Last Filed: 10/24/19 00:05> General Mode of arrival: EMS . Date/Time Provider Initiated Documentation: 10/20/19 07:00 . Limitations to Documentation: no limitations . Information obtained by: patient, EMS and RN notes reviewed . HPI Narrative: Patient presents to ED status post fall at home. She has pain in her right groin area. She denies striking her head. She denies any syncope. Lost her balance and fell. There is no neck pain or back pain. There is no difficulty breathing. Related Data Home Medications Medication Instructions Recorded Confirmed Women's Multivitamin Gummies 200 mcg PO DAILY #150 tab.chew 06/01/16 10/20/19 thiamine mononitrate (vit B1) 100 mg PO DAILY 11/24/17 10/20/19 levothyroxine 88 mcg tablet 88 mcg PO DAILY #90 tab 03/27/19 10/20/19 magnesium oxide 400 mg (241.3 mg 400 mg PO BID #60 tab-cap 05/25/19 10/20/19 magnesium) tablet atenolol 100 mg tablet 100 - 150 mg PO BID #225 tab-cap 06/14/19 10/20/19 warfarin 2.5 mg tablet 2.5 mg PO HS #90 tab 06/14/19 08/16/19 furosemide 20 mg tablet 10 mg PO DAILY #45 tab 08/16/19 10/20/19 losartan 50 mg tablet 50 mg PO DAILY #90 tab-cap 08/16/19 10/20/19 Breo Ellipta 1 inh INHALATION DAILY 10/20/19 10/20/19 vitamin T28-eowii acid 1,000 hiedi SUBLINGUAL DAILY 10/20/19 10/20/19 acetaminophen [Mapap Extra 1,000 mg PO TID #90 tab 10/23/19 Strength] bisacodyl 10 mg NJ DAILY PRN PRN #5 ea 10/23/19 polyethylene glycol 3350 [Miralax] 17 gm PO DAILY #10 each 10/23/19 tramadol 50 mg PO Q6H PRN PRN #10 tab 10/23/19 Previous Rx's Medication Instructions Recorded levothyroxine 88 mcg tablet 88 mcg PO DAILY #90 tab 03/27/19 magnesium oxide 400 mg (241.3 mg 400 mg PO BID #60 tab-cap 05/25/19 magnesium) tablet atenolol 100 mg tablet 100 - 150 mg PO BID #225 tab-cap 06/14/19 warfarin 2.5 mg tablet 2.5 mg PO HS #90 tab 06/14/19 furosemide 20 mg tablet 10 mg PO DAILY #45 tab 08/16/19 losartan 50 mg tablet 50 mg PO DAILY #90 tab-cap 08/16/19 acetaminophen [Mapap Extra 1,000 mg PO TID #90 tab 10/23/19 Strength] bisacodyl 10 mg NJ DAILY PRN PRN #5 ea 10/23/19 polyethylene glycol 3350 [Miralax] 17 gm PO DAILY #10 each 10/23/19 tramadol 50 mg PO Q6H PRN PRN #10 tab 10/23/19 Allergies Allergy/AdvReac Type Severity Reaction Status Date / Time sulfamethoxazole AdvReac Mild NAUSEA Unverified 10/20/19 07:14 trimethoprim AdvReac Mild NAUSEA Unverified 10/20/19 07:14 MELISSA Inhibitors AdvReac Unknown RENAL Unverified 10/20/19 07:14 INSUFFIENCIENCY benazepril AdvReac Unknown Unverified 10/20/19 07:14 lovastatin AdvReac Unknown LIGHTHEADED Unverified 10/20/19 07:14 NESS methyldopa AdvReac Unknown Unverified 10/20/19 07:14 simvastatin [From Zocor] AdvReac Unknown BODY ACHES Unverified 10/20/19 07:14 W/ HIGHER DOSES Review of Systems <Marshall Rowell MD - Last Filed: 10/24/19 00:05> Narrative: 07/03 Review of Systems completed and is negative except as stated above in HPI (Systems reviewed: Const, Eyes, ENT, Resp, CV, GI, , MSK, Skin, Neuro) PFSH <Marshall Rowell MD - Last Filed: 10/24/19 00:05> Medical History Atrial fibrillation (Chronic) Cardioversion and Amiodarone in 2012: successfull but reverted 1 week later- amiodarone d/c /ON COUMADIN Cardiomyopathy (Chronic) unclear etiology/ EF as low as 25% in 2012-back up around 50% post a.fib. rate regulated and post infection/poss. A.Fib. 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 Father , AGE 92 Stroke Sister , AGE 93 No problems noted. Sister , AGE 89 No problems noted. Brother , AGE 90 Lung cancer Heart disease Brother , AGE 90 Heart disease Bone cancer Son Alcohol abuse Son , AT No problems noted. Son Alcohol abuse Daughter No problems noted. Daughter No problems noted. Daughter No problems noted. Maternal Grandfather Alcohol abuse Paternal Grandfather , age 100 No problems noted. Maternal Grandmother , age 82 No problems noted. Paternal Grandmother , age 100 No problems noted. Social History Smoking/Tobacco Use Status: Never Second Hand Exposure: Yes Alcohol Intake: current Alcohol Intake frequency: a few times a week Alcohol type: hard liquor Drug use: Never Substance use type: does not use Caregiver/Support person: No Household members: none Housing: apartment Communication Needs: Deaf and Corrective Lenses Do you need help understanding health information?: Rarely Pets and animals: Yes Pets and animals: cat(s) Sexually active: No Do you think of yourself as: straight/heterosexual Current gender identity: female What is your relationship status?: How often do you talk on the phone with friends or family?: three or more times per week How often do you get together with friends or relatives?: three or more times per week How often do you attend sabianist or nondenominational services?: 1-3 times per year Do you belong to any clubs or organized social groups?: yes Panel score (0-1 are the most socially isolated patients): 2 Duration: 45-60 minutes/day Frequency: 1-2 times per week Diane/Mormonism: Jainism Special diane needs: No Seatbelt use: always Drive intox or ride w/intox 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 Mild tachycardia. Elevated blood pressure. Normal room air pulse oximetry. Const: Elderly female in NAD. HEENT: NC/AT. Normal facial exam. Eyes: Normal conjunctiva and sclera. Neck: Supple. Trachea midline. No c-spine tenderness. Lungs: Normal respiratory effort. Lungs are clear. Cor: Irr/irr without murmur/gallop. Good distal pulses. GI: Soft. NT/ND. No guarding or rebound. Pelvis: Stable, tender deep in right buttock. Neuro: A+O x 3. Normal speech, mentation, gait. Cranial nerves II - XII grossly intact. No gross motor or sensory deficit. Ext: No obvious deformity. No shortening or external rotation. 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 Sign Out <Marshall Rowell MD - Last Filed: 10/24/19 00:05> Sign Out Data: Sign Out Comment: pending labs and CT scan Last updated by Marshall Rowell MD at 10/20/19 07:52
--- NOTE | 2019-10-20 07:20 | DI.RAD_ITS ---
EXAM: XR PELVIS AP CLINICAL HISTORY: trauma TECHNIQUE: FINDINGS: Single AP view was obtained. There is total hip joint replacement position on left with plate and sc rew fixation of the proximal left femur, incompletely visualized and suboptimal technique for this ar ea. No gross femoral fracture seen on the right on this single view. There does appear to be a right pub ic fracture and there is asymmetry of the pelvic ring raising the possibility of additional pelvic fr acture, perhaps involving the sacrum. Right iliac contour supra-acetabular also may be abnormal, rivera sing the possibility of an acetabular fracture on the right. Additional evaluation with CT of the pelvis suggested to define fracture anatomy. Findings were disc ussed with Dr. Rowell and CT of the pelvis with IV contrast is planned to exclude vascular injury as david siddiqui. IMPRESSION:
[2019-10-20 08:25] LABS: HCT 38.4 % (36.0-46.0); HGB 12.8 g/dL (12.0-15.5); Mean Corp. HGB Concentration 33.3 g/dL (32.0-36.0); Mean Corpuscular Hemoglobin 34.4 pg (27.0-33.0); Mean Corpuscular Volume 103.2 fL (80-95); Mean Platelet Volume 10.5 fL (8.0-11.0); Platelet Count 220 x1000/uL (130-400); RBC 3.72 m/cumm (4.00-5.20); RBC Distribution Width 13.3 % (11.7-14.6); White Blood Cell Count 14.07 k/cumm (4.4-10.8)
[2019-10-20 08:33] LABS: Anion Gap 6.9 mmol/L (3-11); BUN 17 mg/dL (7-18); CO2 31.1 mmol/L (21.0-32.0); CREATININE 1.25 mg/dL (0.55-1.02); Calcium 9.4 mg/dL (8.5-10.1); Chloride 98 mmol/L (98-107); Estimated GFR 41.24 (mL/min/1.73m2); Glucose 114 mg/dL (74-106); Potassium 3.9 mmol/L (3.5-5.1); Sodium 136 mmol/L (136-145)
[2019-10-20 08:34] LABS: INR 1.9 (0.9-1.1); Prothrombin Time 18.8 sec (9.3-11.0)
[2019-10-20] MEDS: Omnipaque 350 MG/ML 100 ML BTL IV (08:58)
--- NOTE | 2019-10-20 09:00 | DI.CT_ITS ---
EXAM: CT PELVIC W CLINICAL HISTORY: pelvic fx on coumadin TECHNIQUE: CT examination of the pelvis was performed with intravenous infusion of 100 cc of Omnipaq ue 350. COMPARISON: No exams were available for comparison FINDINGS: There is a total hip joint replacement in position on the left which obscures left acetabular/femor al detail somewhat. There are severe degenerative changes of the right hip. There is a mildly comminuted, mildly displaced fracture of the right pubic bone adjacent to the symph ysis. There is a minimally displaced fracture of the inferior pubic ramus as well. No acetabular fr acture seen. There is a nondisplaced right sacral ala fracture adjacent to the SI joint. No additional fracture seen. Small right pelvic sidewall hematoma and Lindsey symphyseal hematoma noted . No evidence of vascular injury or active contrast extravasation. No evidence of injury of the vis ualized abdominal organs. No free air or free fluid identified in the pelvis. IMPRESSION: Fracture involving pubic bone and right sacral ala as described above, mild displacement, no signific ant hematoma or evidence of vascular injury.
[2019-10-20] MEDS: Acetaminophen 500 MG TAB 1000 MG PO (10:05)
--- NOTE | 2019-10-20 12:50 | IN_ITS ---
Date of service: 10/20/19 Time of Service: 10:42 PT Notes Visit Reasons: [facility] Inpatient Initial Evaluation Date: 10/19/2019 Referring Doctor: Eliezer Jara M.D. PT Orders: PT CONSULT: Limited Ability Precautions: Fall. Standard. Activity as tolerated. WBAT on R LE. Patient Profile/Admitting Diagnosis: Patient is an 79-year-old female with history of left total hip arthroplasty that presented to the ER on status post a fall in her apartment. Diagnoses of a mildly comminuted displaced fracture of the right pubic bone, minimally displaced fracture of the right inferior pubic ramus, and right sacral ala fracture. PMHX: Medical History (Updated 10/20/19 @ 07:03 by Marshall Rowell MD) Atrial fibrillation (Chronic) Cardioversion and Amiodarone in 2012: successfull but reverted 1 week later- amiodarone d/c /ON COUMADIN Cardiomyopathy (Chronic) unclear etiology/ EF as low as 25% in 2011-back up around 50% post a.fib. rate regulated and post infection/poss. A.Fib. 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 Her granddaughter lives about 20 minutes away and daughter lives within driving distance. She reports that she no longer drives. Has a friend bring her grocery shopping and takes RCT to doctors appointments. Equipment Owned/DME: walker and cane Subjective: Patient reports that she goes to [facility] for an independent living course. She typically uses her walker to ambulate, but has been trying to use her cane more often to become more independent with walker. While walking in her apartment with her cane today she fell, today. Objective: General Observation: lying in bed with the head of bed at 30 degrees. Daughter and grand-daughter in the room. Mental Status: alert and oriented. Pain: 2/10 with rest. 6-7/10 with bed mobility. 10/10 with ambulation. ROM: Right Upper Extremity: Shoulder Flexion WFL. Shoulder abduction WFL. Elbow flexion WFL. Wrist flexion WFL. Opening and closing of hand WFL. Left Upper Extremity: Shoulder Flexion WFL. Shoulder abduction WFL. Elbow flexion WFL. Wrist flexion WFL. Opening and closing of hand WFL. Right Lower Extremity: Hip flexion WFL. Hip abduction WFL. Knee flexion WFL. Ankle dorsiflexion WFL. Ankle plantarflexion WFL. Left Lower Extremity: Hip flexion WFL. Hip abduction WFL. Knee flexion WFL. Ankle dorsiflexion WFL. Ankle plantarflexion WFL. Strength: Right Upper Extremity: Shoulder flexors 3-/5. Shoulder abductors 3-/5. Elbow flexors 5/5. Elbow extensors 5/5. Child Support Specialist strong. Left Upper Extremity: Shoulder flexors 3-/5. Shoulder abductors 3-/5. Elbow flex ors 5/5. Elbow extensors 5/5. Child Support Specialist strong. Right Lower Extremity: Hip flexors 4/5 (painful). Hip abductors 5/5. Knee flexors 5/5. Knee extensors 5/5. Ankle dorsiflexors 5/5. Ankle plantarflexors 5/5. Left Lower Extremity: Hip flexors 5/5. Hip abductors 5/5. Knee flexors 5/5. Knee extensors 5/5. Ankle dorsiflexors 5/5. Ankle plantarflexors 5/5. Sensation: Intact as to pain and pressure on bilateral lower extremities. Bed Mobility/Transfers: Rolling Mod A Supine to sit Mod A Sit to supine Mod A with LE assistance Sit to stand CGA Stand to sit CGA Bed to chair CGA Chair to bed CGA Gait: Patient was able to ambulate 5 steps forward + 4 steps backwards, WBAT on the R LE, using a front-wheeled walker. CGA provided by PT and PT student. Asymmetrical step length and height. Decreased velocity. Unable to lift R LE off of the ground to advance forward and slide across the floor. Balance: Static Sitting: Normal Dynamic Sitting: Normal Static Standing: Poor Dynamic Standing: Poor Special Tests: Mobility Limitations Standardized Measure [facility] AM-PAC 6 clicks Basic Mobility Inpatient Short Form: Raw Score: 14 CMS Score: 61% deficit Informed Consent/Education: Patient instructed in purpose of PT consult and plan of care. Assessment: Patient is an 79-year-old female with history of left total hip arthroplasty that presented to the ER on status post a fall in her apartment. Diagnoses of a mildly comminuted displaced fracture of the right pubic bone, minimally displaced fracture of the right inferior pubic ramus, and right sacral ala fracture. Pt presents with impairment level findings and functional limitations as presented below that limit her ability to safely return home. AM-PAC raw score of 14 with 61% deficit suggests good prognosis for improvement at a group home facility. She would continue to benefit from intensive physical therapy for a safe return to home. Patient presents with clinical signs and symptoms consistent with current/admitting diagnoses that have resulted to mobility limitations, gait instability, and generalized weakness demonstrated by the following impairment level findings: 1. Decreased strength to R hip major muscle groups 2. Impaired sitting/standing balance 3. Impaired activity tolerance Impairments are contributing to the following functional limitations: 1. Dependent bed mobility skills 2. Increased dependence with transfers 3. Inability to safely ambulate without assistive device and physical assistance 4. Increase completion time for mobility ADL performance 5. Increased fall risk 6. Inability to negotiate steps alone safely Patient is assessed as a [id number] moderate complexity based on the following: History: Patient is an 79-year-old female with history of left total hip arthroplasty that presented to the ER on status post a fall in her apartment. Diagnoses of a mildly comminuted displaced fracture of the right pubic bone, minimally displaced fracture of the right inferior pubic ramus, and right sacral ala fracture. Pt presents with impairment level findings and functional limitations as presented below. AM-PAC raw score of 14 with 61% deficit. Examination: Demonstrable impairment in strength, balance, and range of motion with underlying impairments and functional limitations as documented above Presentation: Evolving Decision Makin moderate complexity Goals: N/A. Physical therapy evaluation only. DISCHARGE RECOMMENDATIONS: Discharge to a group home facility for continued skilled physical therapy services in order to progress mobility level, strength, and balance in preparation for a safe discharge to home. Patient will require home health physical therapy services once discharged home in order to fac ilitate a smooth transition to the home. TREATMENT CODE/TIME: 26461 x 28 minutes beginning at 10:42 A.M. Thank you very much for this referral. Amrit Anthony, SPT Doctor of Physical Therapy Student [facility] Supervision provided by Rose Ladd PT, DPT, CLT [facility] [place], [place]
--- NOTE | 2019-10-20 16:48 | CMPROGNOTE_ITS ---
- If Service Date Differs Date of service: 10/20/19 Time of Service: 16:48 Care Management Progress Note CM meets with Reta at the request of ED provider. Reta fell at home today and suffered a pelvic fracture. She was evaluated by PT in the ED and was found to have gait instability and generalized weakness. PT recommended she go to a shelter facility to regain her strength. Reta is agreeable to going to a short-term rehab and she expresses a preference for either [facility] or [facility]. CM, therefore, sends a referral to [facility]. Reta is accepted for short-term rehab at [facility] but they are unable to accept her for admission until Wednesday. P: Reta is being admitted to a swing bed as she is not safe to return home where she lives alone. The plan is for her to transfer to [facility] on Wednesday.
--- NOTE | 2019-10-20 18:44 | HPE_ITS ---
Date of service: 10/20/19 Time of Service: 18:45 Assessment and Plan Assessment and plan (1) Closed pelvic fracture: Status: Acute Assessment and plan: She has pelvic fracture of the pubic bone and right sacral ala. Recommendations are for PT and OT as well as pain control. Eventually will transfer to the [facility] for continued rehabilitation. (2) Atrial fibrillation: Status: Chronic Assessment and plan: She is on warfarin with an INR of 1.9. Will continue on warfarin at her present dose. We will try to avoid over anticoagulation given the fresh fracture. There is no evidence of overt bleeding from the fracture. (3) Essential hypertension: Status: Chronic Assessment and plan: Blood pressure is well controlled. Continue present meds. (4) Discharge planning issues: Status: Acute Assessment and plan: Patient is DNR/DNI. Admitted to swing bed level 1 in anticipation of transfer to the [facility] skilled rehab center. History of Present Illness History of Present Illness Chief Complaint: Pelvic fracture Narrative: 79-year-old woman who lives in an apartment in the [place]. She fell today at home complaining of pain in her right groin area. She denies any head injury. She denies any syncope. She describes just losing her balance and falling. She arrives in the emergency room via EMS. In the emergency room she was found to have a pelvic fracture by x-ray. A CT of the pelvis with contrast confirmed a fracture of the pubic bone and right sacral ala. Because she was on warfarin at the time of her fall the CT scan was to r ule out hematoma or blood accumulation of which there was none. She is admitted to swing bed level 1 in anticipation of transfer to the [facility] for further rehabilitation. Review of Systems Narrative: She is complaining of pain primarily in her back on the right side. She denies any chest pain or palpitations. She is not having a headache or any vision changes. She has no respiratory symptoms. [facility] Medical History Atrial fibrillation (Chronic) Cardioversion and Amiodarone in 2011: successfull but reverted 1 week later- amiodarone d/c /ON COUMADIN Cardiomyopathy (Chronic) unclear etiology/ EF as low as 25% in 2012-back up around 50% post a.fib. rate regulated and post infection/poss. A.Fib. 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 Father , AGE 92 Stroke Sister , AGE 93 No problems noted. Sister , AGE 89 No problems noted. Brother , AGE 90 Lung cancer Heart disease Brother , AGE 90 Heart disease Bone cancer Son Alcohol abuse Son , AT No problems noted. Son Alcohol abuse Daughter No problems noted. Daughter No problems noted. Daughter No problems noted. Maternal Grandfather Alcohol abuse Paternal Grandfather , age 100 No problems noted. Maternal Grandmother , age 82 No problems noted. Paternal Grandmother , age 100 No problems noted. Social History Smoking/Tobacco Use Status: Never Second Hand Exposure: Yes Alcohol Intake: current Alcohol Intake frequency: a few times a week Alcohol type: hard liquor Drug use: Never Substance use type: does not use Caregiver/Support person: No Household members: none Housing: apartment Communication Needs: Deaf and Corrective Lenses Do you need help understanding health information?: Rarely Pets and animals: Yes Pets and animals: cat(s) Sexually active: No Do you think of yourself as: straight/heterosexual Current gender identity: female What is your relationship status?: How often do you talk on the phone with friends or family?: three or more times per week How often do you get together with friends or relatives?: three or more times per week How often do you attend orthodox or hindu services?: 1-3 times per year Do you belong to any clubs or organized social groups?: yes Panel score (0-1 are the most socially isolated patients): 2 Duration: 45-60 minutes/day Frequency: 1-2 times per week Diane/Baptism: Yazidism Special diane needs: No Seatbelt use: always Drive intox or ride w/intox pizza delivery driver: No Do you feel safe at home: Yes Do you feel safe in your relationship?: Yes Meds Home Medications and Allergies Home Medications Medication Instructions Recorded Confirmed Type Women's Multivitamin Gummies 200 mcg PO DAILY #150 tab.chew 06/01/16 10/20/19 History thiamine mononitrate (vit B1) 100 mg PO DAILY 11/24/17 10/20/19 History Proventil Hfa 1 - 2 puff INHALATION [id number] PRN 01/06/18 03/01/19 Clinic #1 inhaler acetaminophen 650 mg 650 mg PO BID PRN tab-cap 06/29/18 10/20/19 History tablet,extended release levothyroxine 88 mcg tablet 88 mcg PO DAILY #90 tab 03/27/19 10/20/19 Rx magnesium oxide 400 mg (241.3 mg 400 mg PO BID #60 tab-cap 05/25/19 10/20/19 Rx magnesium) tablet atenolol 100 mg tablet 100 - 150 mg PO BID #225 tab-cap 06/14/19 10/20/19 Rx warfarin 2.5 mg tablet 2.5 mg PO HS #90 tab 06/14/19 08/16/19 Rx furosemide 20 mg tablet 10 mg PO DAILY #45 tab 08/16/19 10/20/19 Rx losartan 50 mg tablet 50 mg PO DAILY #90 tab-cap 08/16/19 10/20/19 Rx fluticasone furoate-vilanterol 1 inh INHALATION DAILY 10/20/19 10/20/19 History [Breo Ellipta] vitamin C09-irtiy acid 1,000 heidi SUBLINGUAL DAILY 10/20/19 10/20/19 History Allergies Allergy/AdvReac Type Severity Reaction Status Date / Time sulfamethoxazole AdvReac Mild NAUSEA Unverified 10/20/19 07:14 trimethoprim AdvReac Mild NAUSEA Unverified 10/20/19 07:14 MELISSA Inhibitors AdvReac Unknown RENAL Unverified 10/20/19 07:14 INSUFFIENCIENCY benazepril AdvReac Unknown Unverified 10/20/19 07:14 lovastatin AdvReac Unknown LIGHTHEADED Unverified 10/20/19 07:14 NESS methyldopa AdvReac Unknown Unverified 10/20/19 07:14 simvastatin [From Zocor] AdvReac Unknown BODY ACHES Unverified 10/20/19 07:14 W/ HIGHER DOSES Exam Narrative Exam Narrative: On exam she is alert and fully coherent in no apparent distress. She appears to be in somewhat good spirits. She remembers me from previous admission. Her lungs sound completely clear right and left. Her heart sounds are regular. Her abdomen is nontender. She has tenderness to any rocking of the pelvis but no outward sign of deformity. The lower extremities show no CCE. Neurologically there are no focal deficits. Results Labs Result diagrams: 10/20/19 08:10 10/20/19 08:10 Labs: Laboratory Results - last 24 hr 10/20/19 10/20/19 10/20/19 08:10 08:10 08:10 WBC 14.07 H RBC 3.72 L Hgb 12.8 Hct 38.4 MCV 103.2 H MCH 34.4 H MCHC 33.3 RDW 13.3 Plt Count 220 MPV 10.5 PT 18.8 H INR 1.9 H Sodium 136 Potassium 3.9 Chloride 98 Carbon Dioxide 31.1 Anion Gap 6.9 BUN 17 Creatinine 1.25 H Estimated GFR/1.73 m2 41.24 Glucose 114 H Calcium 9.4 Patient ABO/Rh Antibody Screen 10/20/19 08:10 WBC RBC Hgb Hct MCV MCH MCHC RDW Plt Count MPV PT INR Sodium Potassium Chloride Carbon Dioxide Anion Gap BUN Creatinine Estimated GFR/1.73 m2 Glucose Calcium Patient ABO/Rh A Positive Antibody Screen Negative Last Vital Signs Temp 37.0 C 10/20/19 17:13 Pulse 98 H 10/20/19 17:13 Resp 16 10/20/19 17:13 BP 136/94 H 10/20/19 17:13 Pulse Ox 95 10/20/19 17:13
[2019-10-20] MEDS: Atenolol 50 MG TAB 100 MG PO (19:43)
[2019-10-20] MEDS: Magnesium Oxide 400 MG TAB PO (19:43)
[2019-10-20] MEDS: Normal Saline Flush 10 ML SYR IVP (19:44)
[2019-10-20] MEDS: Acetaminophen 325 MG TAB 650 MG PO (21:39)
[2019-10-20] MEDS: Albuterol HFA 8 GM 60 PUFF INH IH (21:39)
[2019-10-21 07:20] VITALS: BP 122/77; PULSE 92; RESP 17; TEMP 36.9; O2SAT 99
[2019-10-21 07:20] LABS: HCT 35.6 % (36.0-46.0); HGB 11.7 g/dL (12.0-15.5); Mean Corp. HGB Concentration 32.9 g/dL (32.0-36.0); Mean Corpuscular Hemoglobin 34.3 pg (27.0-33.0); Mean Corpuscular Volume 104.4 fL (80-95); Mean Platelet Volume 10.8 fL (8.0-11.0); Platelet Count 181 x1000/uL (130-400); RBC 3.41 m/cumm (4.00-5.20); RBC Distribution Width 13.6 % (11.7-14.6); White Blood Cell Count 6.02 k/cumm (4.4-10.8)
[2019-10-21 07:28] LABS: Anion Gap 7.3 mmol/L (3-11); BUN 17 mg/dL (7-18); CO2 30.7 mmol/L (21.0-32.0); CREATININE 1.28 mg/dL (0.55-1.02); Chloride 99 mmol/L (98-107); Estimated GFR 40.12 (mL/min/1.73m2); Glucose 113 mg/dL (74-106); INR 2.1 (0.9-1.1); Potassium 3.7 mmol/L (3.5-5.1); Prothrombin Time 20.6 sec (9.3-11.0); Sodium 137 mmol/L (136-145)
[2019-10-21] MEDS: Losartan 50 MG TAB PO (07:43)
[2019-10-21] MEDS: Atenolol 50 MG TAB 100 MG PO ×2 (07:44→19:15)
[2019-10-21] MEDS: Levothyroxine 88 MCG TAB PO (07:44)
[2019-10-21] MEDS: Magnesium Oxide 400 MG TAB PO (07:44)
[2019-10-21] MEDS: Thiamine 100 MG TAB PO (07:44)
[2019-10-21] MEDS: Acetaminophen 325 MG TAB 650 MG PO ×2 (07:44→19:17)
[2019-10-21] MEDS: Normal Saline Flush 10 ML SYR IVP (07:47)
[2019-10-21] MEDS: Furosemide 20 MG TAB 10 MG PO (09:40)
--- NOTE | 2019-10-21 09:41 | PT.INIE ---
Date of service: 10/21/19 Time of Service: 09:10 PT Notes Visit Reasons: PELVIC FRACTURE Physical Therapy Inpatient Initial Evaluation Date: 10/21/2019 Referring Doctor: Eliezer Hernandez M.D. PT Orders: PT CONSULT: Eval for Assistive Device Precautions: Fall. Standard. Activity as tolerated. WBAT on R LE. Patient Profile/Admitting Diagnosis: Patient is an 79-year-old female with history of left total hip arthroplasty that presented to the ER on 10/20/2019 status post a fall in her apartment. Diagnoses of a mildly comminuted displaced fracture of the right pubic bone, minimally displaced fracture of the right inferior pubic ramus, and right sacral ala fracture. PMHX: Medical History (Updated 10/20/19 @ 07:03 by Marshall Rowell MD) Atrial fibrillation (Chronic) Cardioversion and Amiodarone in 2011: successfull but reverted 1 week later- amiodarone d/c /ON COUMADIN Cardiomyopathy (Chronic) unclear etiology/ EF as low as 25% in 2011-back up around 50% post a.fib. rate regulated and post infection/poss. A.Fib. 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 Her granddaughter lives about 20 minutes away and daughter lives within driving distance. She reports that she no longer drives. Has a friend bring her grocery shopping and takes RCT to doctors appointments. Equipment Owned/DME: walker and cane Subjective: Patient reports that she goes to [facility] for an independent living course for global strength and balance training. She typically uses her walker to ambulate, but has been trying to use her cane more often to become more independent with walker. While walking in her apartment with her cane today she fell. Objective: General Observation: Sitting up in bedside recliner just finished with her breakfast with daughter in law in room. Mental Status: alert and oriented. Pain: 0/10 with rest. 6-7/10 with bed mobility. 8/10 with ambulation. ROM: Right Upper Extremity: Shoulder Flexion WFL. Shoulder abduction WFL. Elbow flexion WFL. Wrist flexion WFL. Opening and closing of hand WFL. Left Upper Extremity: Shoulder Flexion WFL. Shoulder abduction WFL. Elbow flexion WFL. Wrist flexion WFL. Opening and closing of hand WFL. Right Lower Extremity: Hip flexion WFL with increased pain. Hip abduction WFL. Knee flexion WFL. Ankle dorsiflexion WFL. Ankle plantarflexion WFL. Left Lower Extremity: Hip flexion WFL. Hip abduction WFL. Knee flexion WFL. Ankle dorsiflexion WFL. Ankle plantarflexion WFL. Strength: Right Upper Extremity: Shoulder flexors 3/5. Shoulder abductors 3/5. Elbow flexors 5/5. Elbow extensors 5/5. Conventional Underwriter strong. Left Upper Extremity: Shoulder flexors 3/5. Shoulder abductors 3/5. Elbow flexors 5/5. Elbow extensors 5/5. Conventional Underwriter strong. Right Lower Extremity: Hip flexors 3+/5 (painful). Hip abductors 5/5. Knee flexors 5/5. Knee extensors 5/5. Ankle dorsiflexors 5/5. Ankle plantarflexors 5/5. Left Lower Extremity: Hip flexors 5/5. Hip abductors 5/5. Knee flexors 5/5. Knee extensors 5/5. Ankle dorsiflexors 5/5. Ankle plantarflexors 5/5. Sensation: Intact as to pain and pressure on bilateral lower extremities. Bed Mobility/Transfers: Rolling Mod A Supine to sit Mod A Sit to supine Mod A with LE assistance Sit to stand CGA with FWW Stand to sit CGA, with cueing for proper hand placement on bed. Bed to chair CGA with FWW Chair to bed CGA with FWW Gait: Patient was able to ambulate 5 steps forward, able to side step 4 steps to bed as well as complete 3 steps backwards, WBAT on the R LE, using a front-wheeled walker. CGA provided by PT . Asymmetrical step length and height. Decreased velocity. Unable to lift R LE off of the ground to advance forward primarily slides right LE across the floor. Balance: Static Sitting: Normal Dynamic Sitting: Normal Static Standing: Poor Dynamic Standing: Poor Special Tests: Mobility Limitations Standardized Measure [facility]-PAC 6 clicks Basic Mobility Inpatient Short Form: Raw Score: 14 CMS Score: 61% deficit Informed Consent/Education: Patient instructed in purpose of PT consult and plan of care. Assessment: Patient is an 79-year-old female with history of left total hip arthroplasty that presented to the ED on 10/20/2019 status post a fall in her apartment. Diagnosed with a mildly comminuted displaced fracture of the right pubic bone, minimally displaced fracture of the right inferior pubic ramus, and right sacral ala fracture. Pt presents with impairment level findings and functional limitations as presented below that limit her ability to safely return home. AM-PAC raw score of 14 with 61% deficit suggests good prognosis for improvement at a half-way facility. She would continue to benefit from intensive physical therapy for a safe return to home. Currently awaiting transfer to Rehab facility. Patient presents with clinical signs and symptoms consistent with current/admitting diagnoses that have resulted to mobility limitations, gait instability, and generalized weakness demonstrated by the following impairment level findings: 1. Decreased strength to R hip major muscle groups 2. Impaired sitting/standing balance 3. Impaired activity tolerance Impairments are contributing to the following functional limitations: 1. Dependent bed mobility skills 2. Increased dependence with transfers 3. Inability to safely ambulate without assistive device and physical assistance 4. Increase completion time for mobility ADL performance 5. Increased fall risk 6. Inability to negotiate steps alone safely Patient is assessed as a 24483 moderate complexity based on the following: History: Patient is an 79-year-old female with history of left total hip arthroplasty that presented to the ER on 10/20/2019 status post a fall in her apartment. Diagnoses of a mildly comminuted displaced fracture of the right pubic bone, minimally displaced fracture of the right inferior pubic ramus, and right sacral ala fracture. Pt presents with impairment level findings and functional limitations as presented below. AM-PAC raw score of 14 with 61% deficit. Examination: Demonstrable impairment in strength, balance, and range of motion with underlying impairments and functional limitations as documented above Presentation: Evolving Decision Makin moderate complexity Goals: Goals X1 week 1. Supine-Sit CGA 2. Sit-Supine [place]ce with LE 3. Sit-Stand S with FWW 4. Stand-Sit S 5. Bed-Chair S with FWW 6. Chair-Bed S with FWW 7. Gait CGA with FWW 25 ft or greater 8. Independent with home exercise program 9. Improved standing balance Plan of Care/Treatment Plan: 1-2x/day, 7 days/week x 1 week. Plan of care has been reviewed with the ICE CREAM MAKER providing the service under Physical Therapy direction. Initiate Physical Therapy intervention for strengthening, bed mobility, transfers, gait, stairs, balance training, use of assistive device. DISCHARGE RECOMMENDATIONS: Detention Facility/ Rehab for continued skilled physical therapy services in order to progress mobility level, strength, and balance to promote for a safe return home. Patient should continue with use of FWW for ambulation. TREATMENT CODE/TIME: 51431 x 25 minutes beginning at 9:10 am LAURO Luna
--- NOTE | 2019-10-21 13:53 | PHARADMIT ---
Addendum entered by Summer Ramos 10/22/19 13:24: Pharmacy Note Subjective pt with pelvic fracture, awaiting bed at [facility] Objective INR 2.2, pain 6/10, bp 144/76, HR 93 Assessment changed apap to aide and added prn tramadol Plan watch for INR and bleeding due to possible interaction with apap, tramadol Original Note: Admission Pharmacy Clinical Review PELVIC FRACTURE Code Status DNR/DNI Current Weight 59 kg Renally Cleared and Narrow Therapeutic Index Meds CRCL ~25ML/MIN QTc Value / Action Taken NA BP Control, Fever 122/77 AFEBRILE Electrolytes reviewed OK DVT Prophylaxis WARFARIN Opiate Usage / Scheduled Bowel Regimen Ordered NO/PRN Plt/SCr for Heparin / Enoxaparin 181/1.28 INR for Warfarin 2.1 H/H stable, WBC/Bands 11.7/35.6 WBC 6.02 Antibiotic appropriateness NA Cultures and Sensitivities NA Surgical ABX d/c within 24 hr NA DM control / Insulin Dosing NA Heart Failure (Check EF%) (MELISSA's, B-Block, Diuretics) NA IV to PO Switch ALL PO Home Meds Reviewed Home Meds Not Ordered vitamin Z52-vyygb acid 1,000 heidi SUBLINGUAL DAILY Comments HOME MED BREO BROUGHT IN AND IN PT DRAWER
--- NOTE | 2019-10-21 14:31 | CMSA_ITS ---
- If Service Date Differs Date of service: 10/21/19 Time of Service: 14:31 SB Psychosocial/Act.Assessment - Swing Bed Admission Swing Bed Admit Date:: 10/20/19 Swing Bed Level of Care: Level 1/SNF - Social Supports PREVIOUS FUNCTIONAL STATUS/SOCIAL/FAMILY SUPPORTS:: Reta has been for 14 years. She lives alone in an apartment at [facility]. She is able to perform all of her own care and ADLs. She has 9 children and 19 grandchildren who are helpful and supportive. Reta had 4 siblings but they are all . - Prior to Admission Living Arrangements/Environment Prior to Admission:: Lives alone in apartment in [place]. - Education Highest Grade Completed:: 12 Where did you attend School:: [employer] for 1 year - Work History Employment Status:: retired. 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 no longer drives Cognitive:: alert and oriented Communication:: good verbal skills Sensory Systems: wears glasses and hearing aids Behavior:: appropriate - Medical History PAST MEDICAL HISTORY/PAST SURGICAL HISTORY:: COPD, Atrial fibrillation, Cardiomyopathy, Hypertension, Alcohol abuse, Chronic hyponatremia, Cataract in the (L), (L) total hip replacement, Bilateral tubal ligation, Repair of (L) femur fracture - Admission Data Reason for Swing Bed Admission:: awaiting transfer to [facility] on Wednesday Discharge Plan:: Reta will be transferred to the [facility] on Wednesday for short term rehab while she recovers from a fractured pelvis. Reta will return home and final discharge plan will be determined by course of recovery at [facility]. Assessment: Reta is a pleasant 79 year old woman admitted to 1 for the weekend while awaiting a bed at [facility]. She has a fracyured pelvis and will need rehab for a short time. Beam Press Operator: Vashti Wick Date Assessment was completed:: 10/21/19
--- NOTE | 2019-10-21 14:50 | CM.SWINGPC ---
- If Service Date Differs Date of service: 10/21/19 Time of Service: 14:50 Swingbed Plan of Care Plan of care: SWING BED PROGRAM ACTIVITIES/DISCHARGE PLAN OF CARE ACTIVITIES PLAN Date:10/21/2019 Identified Need: individualized activity program Intervention/Plan: Reta enjoys reading cowboy romances and watching westerns on tv. She will be offered music therapy and pet therapy and activities from the cart. [place] [facility] [place] Date: 10/21/2019 Identified Need: Reta needs short term rehab Intervention/Plan: Reta will transfer to [facility] on Wednesday10/23/2019 [place] [facility]
[2019-10-21 15:36] VITALS: BP 100/64; PULSE 68; RESP 16; TEMP 37; O2SAT 97
[2019-10-21 23:26] VITALS: BP 106/71; PULSE 75; RESP 18; TEMP 36.4; O2SAT 97
[2019-10-22] MEDS: Levothyroxine 88 MCG TAB PO (05:36)
[2019-10-22 07:42] LABS: INR 2.2 (0.9-1.1); Prothrombin Time 21.6 sec (9.3-11.0)
[2019-10-22] MEDS: Albuterol HFA 8 GM 60 PUFF INH IH (07:52)
[2019-10-22] MEDS: Furosemide 20 MG TAB 10 MG PO (08:18)
[2019-10-22] MEDS: Atenolol 50 MG TAB 100 MG PO ×2 (08:19→20:08)
[2019-10-22] MEDS: Losartan 50 MG TAB PO (08:19)
[2019-10-22] MEDS: Thiamine 100 MG TAB PO (08:19)
[2019-10-22 08:55] VITALS: BP 144/76; PULSE 93; RESP 20; TEMP 36.7; O2SAT 95
[2019-10-22] MEDS: Acetaminophen 325 MG TAB 650 MG PO (11:21)
--- NOTE | 2019-10-22 12:14 | PT.INTREAT ---
Date of service: 10/22/19 Time of Service: 09:00 PT Notes Visit Reasons: PELVIC FRACTURE Inpatient Physical Therapy Treatment Note [facility] Date: 10/22/19 PRECAUTIONS: Fall, Standard and WBAT on the right LE SUBJECTIVE: Indicated she is not excited about walking today, very sore. OBJECTIVE: PAIN: Pain with ambulation today in the right groin region. BED MOBILITY/TRANSFERS Rolling L/R: SBA Supine-sit: SBA Sit-stand: SBA Stand-sit: SBA GAIT Assistive Device: FWW Weight bearing: WBAT on the right Assist: CGA x 2 Distance: 5ft THEREX: Performed AP, light glut sets, LAQs and seated hip flexion all within pain tolerance. Patient was given 1# hand weights to perform UE exercises which she does at home and with senior group. ASSESSMENT: Tolerated exercises well, but is having difficulty with ambulation due to pain. Was medicated 30 minutes prior to ambulation today. PLAN: Continue with current POC, as able to tolerate. Focus on functional mobility for improved ADLs. TREATMENT CODE/TIME: 09:00 to 09:10 (10' ther ex) and 12:00 to 12:15 (15' ambulation bed to chair), [id number] and [id number]
[2019-10-22] MEDS: traMADol 50 MG TAB PO (13:28)
[2019-10-22] MEDS: Acetaminophen 500 MG TAB 1000 MG PO ×2 (15:00→20:03)
[2019-10-22 16:22] VITALS: BP 94/55; PULSE 83; RESP 18; TEMP 36.6; O2SAT 94
[2019-10-22 16:50] VITALS: BP 100/70
[2019-10-22 18:41] VITALS: BP 110/70
[2019-10-22 20:05] VITALS: BP 100/70; PULSE 76
[2019-10-23 00:05] VITALS: BP 120/80; PULSE 74; RESP 16; TEMP 36.6; O2SAT 98
[2019-10-23] MEDS: Levothyroxine 88 MCG TAB PO (06:27)
[2019-10-23 07:12] LABS: INR 2.3 (0.9-1.1); Prothrombin Time 22.8 sec (9.3-11.0)
--- NOTE | 2019-10-23 07:51 | OTIE_ITS ---
Occupational Therapy Notes Inpatient Occupational Therapy Evaluation Date: 10/23/19 Referring Doctor:Eliezer Hernandez MD OT Orders: Eval for Assistive devices Precautions: Fall, Standard PATIENT PROFILE/ADMITTING DIAGNOSIS: Pt is an 79 year old female who was transitioned to [facility] bed 1 on 10/21/19. Pt presented to the ER on 10/19/19 with dx of comminuted displaced fracture of the (R) pubic bone, minimally displaced fracture of the (R) inferior pubic ramus, and (R) sacral ala fracture. Past Medical History- Medical History (Updated 10/20/19 @ 07:03 by Marshall Rowell MD) Atrial fibrillation (Chronic) Cardioversion and Amiodarone in 2012: successfull but reverted 1 week later- amiodarone d/c /ON COUMADIN Cardiomyopathy (Chronic) unclear etiology/ EF as low as 25% in 2011-back up around 50% post a.fib. rate regulated and post infection/poss. A.Fib. 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 She states that she is (I) at baseline level of function. She states that she does not drive and hasn't for the past 7 years but does utilize [employer] to get where she needs to go. She goes to the [employer] meal site in [place] at times. She has a tub/shower but does have a bench and grab bars. She states that she is (I) in donning her (B) socks and shoes and has adaptive equipment at home. Pt attends an independent strengthening class at [facility] in [place] 2x/week. Equipment owned/DME: Sock aid, seamstress fitter, leg addictions therapist, shower bench, grab bars, removable shower head SUBJECTIVE: Pt was lying in bed when OT arrived. She states that she is waiting her pain medication but is agreeable to OT session. OBJECTIVE: General Observation: Pleasant and was able to answer questions appropriately. Mental Status: A&Ox3 Pain: c/o pain in (R) hips and legs- pt states that she has not had any pain medication. ROM: RUE AROM WFL L UE AROM WFL STRENGTH: RUE 4/5 throughout globally LUE 4/5 throughout globally SENSATION: Intact (B) UE FUNCTIONAL MOBILITY/ADLS: Transfers with FWW Sit-Stand CGA Stand-sit CGA Bed-Chair CGA Chair-bed CGA BATHING Bathing UE Standing at sink with FWW (I) face, (B) UE and abdomen, max(A) back, Hair was washed with shower cap with min (A) Bathing LE Sitting in chair with max (A) set up (I) (B) LE and feet DRESSING Dressing LE Sitting in chair (I) don and doffing (B) socks. GROOMING Sitting in chair (I) brushing hair, standing at sink with FWW (I) with brushing teeth. TOILETING (A) to commode for functional mobility but (I) with toileting hygiene. EATING (I) sitting in chair with ideal technique BALANCE: Static sitting Normal Dynamic Sitting Normal SPECIAL TESTS: Daily Activity Limitations Standardized Measure [facility] AM -PAC ?6 clicks? Daily Activity Inpatient Short Form: Raw score: 22 Standardized score: 47.10 CMS score: 25.80% INFORMED CONSENT/EDUCATION: Pt instructed in purpose of OT Consult and plan of care. ASSESSMENT: Patient is a 79-year-old female referred to occupational therapy services with diagnosis of comminuted displaced fracture of the (R) pubic bone, minimally displaced fracture of the (R) inferior pubic ramus, and (R) sacral ala fracture. Patient presents with clinical signs and symptoms consistent with dx, as demonstrated by the following impairment level findings/functional limitations: Pain in (R) hip, decreased functional activity tolerance, impairments in ADL/IADL and leisure activities, decreased (B) LE movement without pain. Plan is for pt to be discharged to [facility] when medically cleared per MD. [facility] score 22 Patient is assessed as a Low 58293 complexity based on the following: History: See Above Examination: See functional limitations as noted above Presentation: Evolving Decision Making: AMPAC score 22 GOALS N/A PLAN OF CARE/TREATMENT PLAN: Pt was seen for OT consult only. DISCHARGE RECOMMENDATIONS Pt will go to [facility] when medically cleared per MD. TREATMENT TIME/MINUTES/CODES 69115, 20 minutes (07:32) Manasa Stoner OTR/L [facility]
[2019-10-23 07:57] VITALS: BP 139/82; PULSE 79; RESP 18; TEMP 36.7; O2SAT 98
[2019-10-23] MEDS: Acetaminophen 500 MG TAB 1000 MG PO (08:04)
[2019-10-23] MEDS: Atenolol 50 MG TAB 100 MG PO (08:05)
[2019-10-23] MEDS: Losartan 50 MG TAB PO (08:05)
[2019-10-23] MEDS: Thiamine 100 MG TAB PO (08:05)
[2019-10-23] MEDS: Magnesium Oxide 400 MG TAB PO (08:06)
[2019-10-23] MEDS: Furosemide 20 MG TAB 10 MG PO (08:06)
[2019-10-23] MEDS: traMADol 50 MG TAB PO (08:06)
[2019-10-23] MEDS: Albuterol HFA 8 GM 60 PUFF INH IH (08:16)
--- NOTE | 2019-10-23 09:48 | DSE_ITS ---
Date of service: 10/23/19 Time of Service: 09:48 DS: Diagnosis Discharge Diagnosis (1) Closed pelvic fracture: Start date: 10/23/19 Start time: 09:48 Status: Acute Asessment and Plan: Continue pain management and PT/OT at [facility]. Being discharged today (2) Atrial fibrillation: Start date: 10/23/19 Start time: 09:49 Status: Chronic Asessment and Plan: Continue coumadin (3) Essential hypertension: Start date: 10/23/19 Start time: 09:49 Status: Chronic Asessment and Plan: Continue home medications (4) Discharge planning issues: Status: Acute Discharge Plan Disposition Patient Disposition: SNF (LEVEL 1) [facility] Condition: Stable Discharge Details Chief Complaint: Orthopedic Clinical Impression: Closed pelvic fracture Reason For Visit: PELVIC FRACTURE Admit Date/Time: 10/20/19 14:17 Admit Provider: Eliezer Hernandez Attending Provider: Eliezer Hernandez Primary Care Provider: Mary Bee ED Provider: Eliezer Jara Hospital Course Hospital Course: 79 y.o female admitted to [facility] from ED after sustaining fall from losing her balance. In the ED she was found to have pelvic fracture. labs unremarkable. She was admitted for further management of pain. During her stay pain was managed with scheduled tylenol, and tramadol. She is being discharged to the [facility] for rehab. She will be discharged on her current pain regimen, with bowel schedule. She denies CP, SOB, N/V/D. Home Meds and New Rx's Prescriptions: New tramadol 50 mg Tablet 50 mg PO Q6H PRN PRNQty: 10 RF: 0 acetaminophen [Mapap Extra Strength] 500 mg Tablet 1,000 mg PO TID Qty: 90 RF: 0 bisacodyl 10 mg Suppository 10 mg GA DAILY PRN PRN (Reason: Constipation) Qty: 5 RF: 0 polyethylene glycol 3350 [Miralax] 17 gram powder in packet 17 gm PO DAILY Qty: 10 RF: 0 Continued furosemide 20 mg tablet 10 mg PO DAILY Qty: 45 RF: 4 losartan 50 mg tablet 50 mg PO DAILY Qty: 90 RF: 4 Women's Multivitamin Gummies 200 MCG tablet,chewable 200 mcg PO DAILY Qty: 150 RF: 6 thiamine mononitrate (vit B1) 100 MG tablet 100 mg PO DAILY RF: 0 PROVENTIL HFA 18 GM HFA.AER.AD 1 - 2 puff Inhalation [id number] PRNQty: 1 RF: 6 levothyroxine 88 mcg tablet 88 mcg PO DAILY Qty: 90 RF: 2 magnesium oxide 400 mg (241.3 mg magnesium) tablet 400 mg PO BID Qty: 60 RF: 6 atenolol 100 mg tablet 100 - 150 mg PO BID Qty: 225 RF: 3 warfarin 2.5 mg tablet 2.5 mg PO HS Qty: 90 RF: 4 Breo Ellipta 100-25 mcg/dose Blister With Device 1 inh INHALATION DAILY RF: 0 vitamin K88-rulol acid 1,000-400 mcg Lozenge 1,000 heidi SUBLINGUAL DAILY RF: 0 Discontinued acetaminophen 650 mg tablet extended release 650 mg PO BID PRN (Reason: fever or pain) RF: 0 Discharge Instructions Instructions: Acetaminophen (By mouth), Pelvic Fracture (DC), Narcotic Pain Management (DC) Additional Instructions: Take tylenol three times a day for pain and take tramadol as needed for severe pain Take mirlax daily. Follow up with PCP as needed. Activity:: Activity as Tolerated Equipment/Supplies:: No Equipment Needed Diet:: Low Sodium Discharge Orders Discharge Orders: Discharge Order (Routine); Ordered 10/23/19 Ordered By: Rekha Hall DS: Summary Status at Discharge Functional status at discharge: uses cane/walker Overall status at discharge: patient is not back to baseline Mental Status: mental status grossly normal Speech and Movement: speech and movement normal Mood: congruent mood Affect: normal affect Exam Narrative Exam Narrative: On exam she is alert and fully coherent in no apparent distress. She appears to be in somewhat good spirits. Her lungs sound completely clear right and left. Her heart sounds are regular. Her abdomen is nontender. She has tenderness to any rocking of the pelvis but no outward sign of deformity. The lower extremities show no CCE. Neurolog ically there are no focal deficits. Psych Mental Status: mental status grossly normal Speech and Movement: speech and movement normal Mood: congruent mood Affect: normal affect DS: Data Vitals/I&O Vitals and I&O: Vital Signs Temperature 36.7 C 10/23/19 07:57 Temperature Source Tympanic 10/23/19 07:57 Pulse 79 10/23/19 07:57 Pulse Rhythm Irregular 10/22/19 23:45 Pulse 88 10/20/19 08:30 Respiratory Rate 18 10/23/19 07:57 Respiratory Effort Non-Labored 10/22/19 23:45 Respiratory Depth Normal 10/22/19 23:45 Respiratory Pattern Normal 10/22/19 23:45 Blood Pressure 139/82 10/23/19 07:57 Blood Pressure Mean 98 10/20/19 07:06 Blood Pressure Position Supine 10/20/19 07:02 Pulse Oximetry 98 10/23/19 07:57 Oxygen Delivery Method Room Air 10/23/19 07:57 Oxygen Flow Rate 0 10/23/19 07:57 Pain Level 2 10/23/19 08:06 Comment 10/20/19 17:13 Intake & Output 10/22/19 10/22/19 10/23/19 11:59 23:59 11:59 Intake Total 150 / 920 770 / 920 Output Total 150 / 150 Balance 150 / 770 620 / 770 Weight 58.2 kg 59.1 kg Intake: Oral 150 / 920 770 / 920 Output: Urine 150 / 150 Other: Urine Color Light Marie Urine Appearance Clear Comment 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 COMPARISON: No exams were available for comparison FINDINGS: There is a total hip joint replacement in position on the left which obscures left acetabular/femoral detail somewhat. There are severe degenerative changes of the right hip. There is a mildly comminuted, mildly displaced fracture of the right pubic bone adjacent to the symphysis. There is a minimally displaced fracture of the inferior pubic ramus as well. No acetabular fracture seen. There is a nondisplaced right sacral ala fracture adjacent to the SI joint. No additional fracture seen. Small right pelvic sidewall hematoma and Lindsey symphyseal hematoma noted. No evidence of vascular injury or active contrast extravasation. No evidence of injury of the visualized abdominal organs. No free air or free fluid identified in the pelvis. IMPRESSION: Fracture involving pubic bone and right sacral ala as described above, mild displacement, no significant hematoma or evidence of vascular injury. Labs on day of discharge: Labs from last 24 hours 10/23/19 06:20 PT 22.8 H INR 2.3 H [facility] Medical History Atrial fibrillation (Chronic) Cardioversion and Amiodarone in 2012: successfull but reverted 1 week later- amiodarone d/c /ON COUMADIN Cardiomyopathy (Chronic) unclear etiology/ EF as low as 25% in 2012-back up around 50% post a.fib. rate regulated and post infection/poss. A.Fib. 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 Father , AGE 92 Stroke Sister , AGE 93 No problems noted. Sister , AGE 89 No problems noted. Brother , AGE 90 Lung cancer Heart disease Brother , AGE 90 Heart disease Bone cancer Son Alcohol abuse Son , AT No problems noted. Son Alcohol abuse Daughter No problems noted. Daughter No problems noted. Daughter No problems noted. Maternal Grandfather Alcohol abuse Paternal Grandfather , age 100 No problems noted. Maternal Grandmother , age 82 No problems noted. Paternal Grandmother , age 100 No problems noted. Social History Smoking/Tobacco Use Status: Never Second Hand Exposure: Yes Alcohol Intake: current Alcohol Intake frequency: a few times a week Alcohol type: hard liquor Drug use: Never Substance use type: does not use Caregiver/Support person: No Household members: none Housing: apartment Communication Needs: Deaf and Corrective Lenses Do you need help understanding health information?: Rarely Pets and animals: Yes Pets and animals: cat(s) Sexually active: No Do you think of yourself as: straight/heterosexual Current gender identity: female What is your relationship status?: How often do you talk on the phone with friends or family?: three or more times per week How often do you get together with friends or relatives?: three or more times per week How often do you attend moravian or sikhism services?: 1-3 times per year Do you belong to any clubs or organized social groups?: yes Panel score (0-1 are the most socially isolated patients): 2 Duration: 45-60 minutes/day Frequency: 1-2 times per week Diane/Spiritism: Jew Special diane needs: No Seatbelt use: always Drive intox or ride w/intox parts delivery driver: No Do you feel safe at home: Yes Do you feel safe in your relationship?: Yes
--- NOTE | 2019-10-23 15:10 | PTTR_ITS ---
Date of service: 10/23/19 Time of Service: 12:00 PT Notes Visit Reasons: PELVIC FRACTURE 10/23/2019 SUBJECTIVE: Reta stating she is much for comfortable to pain medication on board. She struggled this weekend to move due to discomfort. She is doing her weights and strengthening exercises independently in the room. OBJECTIVE: Pt seated on commode. Agreeable to PT treatment. TRANSFERS Sit to stand: SBA Stand to sit: SBA GAIT Device: FWW Weight bearing: WBAT R Assist: CGA Distance: 5'+ 8'x2 Deviation: Initially pt utilizing shuffling type pattern progressing to step to gait ASSESSMENT: Mobilized with better ease today and less complaints of pain. She is able to stand for prolong period of time to wash up at the sink with only light UE support. PLAN: Pt to be discharged to SNF later today. See discharge summary for details. Treatment time: 20' [id number] Meredith Lipscomb, PUBLIC SERVICE ADMINISTRATOR
--- NOTE | 2019-10-23 16:15 | PDOC.CMDIS ---
- If Service Date Differs Date of service: 10/23/19 Time of Service: 16:15 LACE Index Scoring Tool - Questions: Length of Stay (in days): 3 Acuity (Admit via E.D.?): Yes Care Management Discharge Reason for Hospitalization: Fractured pelvis Discharge Plan: Reta will be transferred to the [facility] for short term rehab. She will follow [facility] plan of care. Reta will transport via [facility] wheelchair van coordinated by CM. Patient/Family Education Needs: Discharge plan, limitations and follow up plan.
--- NOTE | 2019-10-24 11:17 | INDS_ITS ---
Date of service: 10/24/19 Time of Service: 11:17 PT Notes Visit Reasons: PELVIC FRACTURE PT Inpatient Discharge Summary Date: 10/21/2019 Dates of Service: 10/21/2019 through 10/23/2019 This is a clinical summary of care provided on the duration of dates listed above. No charge was made in the completion of this documentation. Referring Doctor: Eliezer Hernandez M.D. PT Orders: PT CONSULT: Eval for Assistive Device Precautions: Fall. Standard. Activity as tolerated. WBAT on R LE. Patient Profile/Admitting Diagnosis: Patient is an 79-year-old female with history of left total hip arthroplasty that presented to the ER on 10/20/2019 status post a fall in her apartment. Diagnoses of a mildly comminuted displaced fracture of the right pubic bone, minimally displaced fracture of the right inferior pubic ramus, and right sacral ala fracture. PMHX: Medical History (Updated 10/20/19 @ 07:03 by Marshall Rowell MD) Atrial fibrillation (Chronic) Cardioversion and Amiodarone in 2012: successfull but reverted 1 week later- amiodarone d/c /ON COUMADIN Cardiomyopathy (Chronic) unclear etiology/ EF as low as 25% in 2012-back up around 50% post a.fib. rate regulated and post infection/poss. A.Fib. related vs etoh Essential hypertension (Chronic 06/20/13) Hyperlipidemia (Chronic) Hyponatremia (Chronic 05/06/16) [facility] [place] Nephrology -2014: pb tubular nephron reabsorption; (pager [phone]) Hypothyroidism (Chronic) Surgical History (Updated 10/20/19 @ 07:03 by Marshall Rowell MD) Bilateral salpingectomy with oophorectomy Debridement, Soft Tissue (09/29/17) IRRIGATION AND DEBRIDEMENT LEFT HIP INCISION--PLACEMENT PF LANCE DRAIN ASPIRATION LEFT TKA Status post open reduction with internal fixation of fracture (Acute) Total replacement of hip (07/08/11) LEFT Social History/Home Situation: Patient lives alone in her apartment at [facility] in [place], [place]. Her granddaughter lives about 20 minutes away and daughter lives within driving distance. She reports that she no longer drives. Has a friend bring her grocery shopping and takes RCT to doctors appointments. Equipment Owned/DME: walker and cane Subjective: NT Objective: General Observation: NT Mental Status: NT Pain: NT ROM: Right Upper Extremity: Shoulder Flexion WFL. Shoulder abduction WFL. Elbow flexion WFL. Wrist flexion WFL. Opening and closing of hand WFL. Left Upper Extremity: Shoulder Flexion WFL. Shoulder abduction WFL. Elbow flexion WFL. Wrist flexion WFL. Opening and closing of hand WFL. Right Lower Extremity: Hip flexion WFL with increased pain. Hip abduction WFL. Knee flexion WFL. Ankle dorsiflexion WFL. Ankle plantarflexion WFL. Left Lower Extremity: Hip flexion WFL. Hip abduction WFL. Knee flexion WFL. Ankle dorsiflexion WFL. Ankle plantarflexion WFL. Strength: Right Upper Extremity: Shoulder flexors 3/5. Shoulder abductors 3/5. Elbow flexors 5/5. Elbow extensors 5/5. [employer] strong. Left Upper Extremity: Shoulder flexors 3/5. Shoulder abductors 3/5. Elbow flexors 5/5. Elbow extensors 5/5. Telephone [employer] strong. Right Lower Extremity: Hip flexors 3+/5 (painful). Hip abductors 5/5. Knee flexors 5/5. Knee extensors 5/5. Ankle dorsiflexors 5/5. Ankle plantarflexors 5/5. Left Lower Extremity: Hip flexors 5/5. Hip abductors 5/5. Knee flexors 5/5. Knee extensors 5/5. Ankle dorsiflexors 5/5. Ankle plantarflexors 5/5. Sensation: Intact as to pain and pressure on bilateral lower extremities. Bed Mobility/Transfers: Supine to sit SBA Sit to supine SBA Sit to stand SBA Stand to sit SBA Bed to chair SBA Chair to bed SBA Gait: Patient was able to ambulate 5 steps forward, able to side step 4 steps to bed as well as complete 3 steps backwards, WBAT on the R LE, using a front- wheeled walker. CGA provided by PT . Asymmetrical step length and height. Decreased velocity. Unable to lift R LE off of the ground to advance forward, primarily slides right LE across the floor. Balance: Static Sitting: Normal Dynamic Sitting: Normal Static Standing: Poor Dynamic Standing: Poor Assessment: Patient is an 79-year-old female with history of left total hip arthroplasty that presented to the ED on 10/20/2019 status post a fall in her apartment. Diagnosed with a mildly comminuted displaced fracture of the right pubic bone, minimally displaced fracture of the right inferior pubic ramus, and right sacral ala fracture. Pt presents with impairment level findings and functional limitations as presented below that limit her ability to safely return home. AM-PAC raw score of 14 with 61% deficit suggests good prognosis for improvement at a prison facility. She would continue to benefit from intensive physical therapy for a safe return to home. Currently awaiting transfer to Rehab facility to achieve goals listed below. Patient presented with clinical signs and symptoms consistent with current/admitting diagnoses that have resulted to mobility limitations, gait instability, and generalized weakness demonstrated by the following impairment level findings: 1. Decreased strength to R hip major muscle groups 2. Impaired sitting/standing balance 3. Impaired activity tolerance Impairments continue to contribute to the following functional limitations: 1. Dependent bed mobility skills 2. Increased dependence with transfers 3. Inability to safely ambulate without assistive device and physical assistance 4. Increase completion time for mobility ADL performance 5. Increased fall risk 6. Inability to negotiate steps alone safely Goals: Goals X1 week 1. Supine-Sit CGA MET 2. Sit-Supine [place] with LE MET 3. Sit-Stand S with FWW NOT MET 4. Stand-Sit S NOT MET 5. Bed-Chair S with FWW NOT MET 6. Chair-Bed S with FWW NOT MET 7. Gait CGA with FWW 25 ft or greater NOT MET 8. Independent with home exercise program NOT MET 9. Improved standing balance DISCHARGE RECOMMENDATIONS: Long Term Facility/ Rehab for continued skilled physical therapy services in order to progress mobility level, strength, and balance to promote a safe return home. Patient should continue with use of FWW for ambulation. TREATMENT CODE/TIME: NC. Thank you very much for this referral. Rose Ladd PT, DPT, CLT [facility] Inpatient PT at [facility]
== END 2019-10-23 12:55 | disposition skilled nursing facility (03) | DRG 536 ==
LOC: ER 14:16 → MS 16:41
PROVIDERS: Emergency Medicine; Admitting Provider Family Medicine; Emergency Provider Emergency Medicine; PCP Family Medicine; Visit Provider Internal Medicine
DX: S32.591A Other specified fracture of right pubis, initial encounter for closed fracture (principal); S32.110A Nondisplaced Zone I fracture of sacrum, initial encounter for closed fracture; W19.XXXA Unspecified fall, initial encounter; I48.91 Unspecified atrial fibrillation; I10 Essential (primary) hypertension; E03.9 Hypothyroidism, unspecified; E78.5 Hyperlipidemia, unspecified; Z79.01 Long term (current) use of anticoagulants
CPT/HCPCS: 36415; 80048; 85027; 86850; 86900; 86901; 94640; 97110; 97162; 97165; 97530; 99239; 99285; 99305; 99316; 72170; 72193; 85610; J3490

== ENCOUNTER 2019-10-24 11:24 | Outpatient (REF) | payer MEDICARE, MEDICAID, SELFPAY ==
[2019-10-24 12:37] LABS: Abs Immature Grans 0.03 k/cumm (0.0-0.09); Absolute Basophil Count 0.02 k/cumm (0.0-0.2); Absolute Eosinophil Count 0.64 k/cumm (0.0-0.7); Absolute Monocyte Count 0.74 k/cumm (0.11-0.7); Absolute Neutrophil Count 4.27 k/cumm (1.2-6.7); Basophils % 0.3; Eosinophils % 9.3; HCT 34.5 % (36.0-46.0); HGB 11.3 g/dL (12.0-15.5); Immature Grans % 0.4 %; Lymphocytes % 17.4; Mean Corp. HGB Concentration 32.8 g/dL (32.0-36.0); Mean Corpuscular Hemoglobin 34.3 pg (27.0-33.0); Mean Corpuscular Volume 104.9 fL (80-95); Mean Platelet Volume 11.5 fL (8.0-11.0); Monocytes % 10.7; Neutrophils % 61.9; Platelet Count 201 x1000/uL (130-400); RBC 3.29 m/cumm (4.00-5.20); RBC Distribution Width 13.4 % (11.7-14.6)
[2019-10-24 13:17] LABS: Anion Gap 6.4 mmol/L (3-11); BUN 21 mg/dL (7-18); CO2 29.6 mmol/L (21.0-32.0); CREATININE 1.22 mg/dL (0.55-1.02); Calcium 8.7 mg/dL (8.5-10.1); Chloride 96 mmol/L (98-107); Estimated GFR 42.41 (mL/min/1.73m2); Glucose 92 mg/dL (74-106); Potassium 5.2 mmol/L (3.5-5.1); Sodium 132 mmol/L (136-145)
== END 2019-10-24 11:44 ==
LOC: LBN 11:24
PROVIDERS: PCP Family Medicine; Visit Provider Family Medicine
DX: R63.4 Abnormal weight loss (principal); I48.91 Unspecified atrial fibrillation
CPT/HCPCS: 80048; 85025

== ENCOUNTER 2019-10-30 12:55 | Outpatient (REF) | payer MEDICARE, MEDICAID, SELFPAY ==
[2019-10-30 14:06] LABS: Abs Immature Grans 0.02 k/cumm (0.0-0.09); Absolute Basophil Count 0.03 k/cumm (0.0-0.2); Absolute Lymphocyte Count 1.23 k/cumm (1.2-3.4); Absolute Neutrophil Count 6.72 k/cumm (1.2-6.7); Basophils % 0.3; Eosinophils % 6.3; HCT 34.2 % (36.0-46.0); HGB 10.8 g/dL (12.0-15.5); Immature Grans % 0.2 %; Lymphocytes % 12.9; Mean Corp. HGB Concentration 31.6 g/dL (32.0-36.0); Mean Corpuscular Hemoglobin 33.6 pg (27.0-33.0); Mean Corpuscular Volume 106.5 fL (80-95); Monocytes % 9.5; Neutrophils % 70.8; Platelet Count 328 x1000/uL (130-400); RBC 3.21 m/cumm (4.00-5.20); RBC Distribution Width 13.3 % (11.7-14.6)
[2019-10-30 14:18] LABS: Anion Gap 5.5 mmol/L (3-11); BUN 19 mg/dL (7-18); CO2 29.5 mmol/L (21.0-32.0); CREATININE 1.25 mg/dL (0.55-1.02); Calcium 9.1 mg/dL (8.5-10.1); Chloride 99 mmol/L (98-107); Estimated GFR 41.24 (mL/min/1.73m2); Glucose 103 mg/dL (74-106); Potassium 5.9 mmol/L (3.5-5.1); Sodium 134 mmol/L (136-145)
[2019-10-30 14:37] LABS: Diff Comment RBC Morph Reviewed; Macrocytosis 2+
== END 2019-10-30 13:15 ==
LOC: LBN 12:55
PROVIDERS: PCP Family Medicine; Visit Provider Family Medicine
DX: I10 Essential (primary) hypertension (principal); R53.83 Other fatigue
CPT/HCPCS: 80048; 85025

== ENCOUNTER 2019-11-02 13:36 | Outpatient (REF) | payer MEDICARE, MEDICAID, SELFPAY ==
[2019-11-02 13:58] LABS: Magnesium 1.6 mg/dL (1.8-2.4)
== END 2019-11-02 13:56 ==
LOC: LBN 13:36
PROVIDERS: PCP Family Medicine; Visit Provider Family Medicine
DX: E87.5 Hyperkalemia (principal); E87.1 Hypo-osmolality and hyponatremia
CPT/HCPCS: 83735; 84132

== ENCOUNTER 2019-11-06 13:10 | Outpatient (REF) | payer MEDICARE, MEDICAID, SELFPAY ==
[2019-11-06 13:47] LABS: INR 1.9 (0.9-1.1); Prothrombin Time 18.8 sec (9.3-11.0)
== END 2019-11-06 13:30 ==
LOC: LBN 13:10
PROVIDERS: PCP Family Medicine; Visit Provider Family Medicine
DX: I48.91 Unspecified atrial fibrillation (principal); Z79.01 Long term (current) use of anticoagulants
CPT/HCPCS: 85610

== ENCOUNTER 2019-11-09 14:45 | Outpatient (REF) | payer MEDICARE, MEDICAID, SELFPAY ==
[2019-11-09 15:02] LABS: Magnesium 1.4 mg/dL (1.8-2.4); Potassium 5.6 mmol/L (3.5-5.1)
== END 2019-11-09 15:05 ==
LOC: LBN 14:45
PROVIDERS: PCP Family Medicine; Visit Provider Family Medicine
DX: E87.1 Hypo-osmolality and hyponatremia (principal); E87.5 Hyperkalemia
CPT/HCPCS: 83735; 84132

== ENCOUNTER 2019-11-10 14:32 | Outpatient (REF) | payer MEDICARE, MEDICAID, SELFPAY ==
[2019-11-10 15:54] LABS: Potassium 4.7 mmol/L (3.5-5.1)
== END 2019-11-10 14:52 ==
LOC: LBO 14:32
PROVIDERS: PCP Family Medicine; Visit Provider Family Medicine
DX: E87.5 Hyperkalemia (principal)
CPT/HCPCS: 84132

== ENCOUNTER 2019-11-14 12:09 | Outpatient (REF) | payer MEDICARE, MEDICAID, SELFPAY ==
[2019-11-14 12:54] LABS: HCT 29.4 % (36.0-46.0); HGB 9.4 g/dL (12.0-15.5)
== END 2019-11-14 12:29 ==
LOC: LBN 12:09
PROVIDERS: PCP Family Medicine; Visit Provider Family Medicine
DX: R53.83 Other fatigue (principal)
CPT/HCPCS: 85014; 85018

== ENCOUNTER 2019-11-20 17:21 | Outpatient (REF) | payer MEDICARE, MEDICAID, SELFPAY ==
[2019-11-20 18:18] LABS: HCT 30.1 % (36.0-46.0); HGB 9.7 g/dL (12.0-15.5)
== END 2019-11-20 17:41 ==
LOC: LBN 17:21
PROVIDERS: PCP Family Medicine; Visit Provider Family Medicine
DX: D64.9 Anemia, unspecified (principal); Z79.01 Long term (current) use of anticoagulants; I48.91 Unspecified atrial fibrillation
CPT/HCPCS: 85014; 85018

== ENCOUNTER 2020-01-16 15:44 | Outpatient (REF) | payer MEDICARE, MEDICAID, SELFPAY ==
[2020-01-16 18:27] LABS: Bilirubin Negative (Negative); Blood Small (Negative); Clarity Cloudy (Clear); Glucose Negative (Negative); Ketones Negative (Negative); Leukocyte Esterase Moderate (Negative); Nitrite Negative (Negative); pH 7.5 (5-8)
[2020-01-16 18:39] LABS: Bacteria Many HPF (Negative); C & S Indicated? C&S Done As Ordered; Casts Negative LPF (Negative); Crystals Negative HPF (Negative); Epithelial Cells Negative HPF (Negative); Mucus Negative (Negative); Other Cells Negative (Negative); WBC >50 HPF (0-5)
== END 2020-01-16 16:04 ==
LOC: LBN 15:44
PROVIDERS: PCP Family Medicine; Visit Provider Family Medicine
DX: N39.0 Urinary tract infection, site not specified (principal); R30.0 Dysuria
CPT/HCPCS: 87077; 81003; 81015; 87086; 87186

== ENCOUNTER 2020-02-29 02:29 | Outpatient (CLI) | payer MEDICARE, MEDICAID, SELFPAY ==
[2020-02-29 14:36] LABS: HCT 36.9 % (36.0-46.0); HGB 11.9 g/dL (12.0-15.5); Mean Corp. HGB Concentration 32.2 g/dL (32.0-36.0); Mean Corpuscular Hemoglobin 31.9 pg (27.0-33.0); Mean Corpuscular Volume 98.9 fL (80-95); Mean Platelet Volume 10.2 fL (8.0-11.0); Platelet Count 246 x1000/uL (130-400); RBC 3.73 m/cumm (4.00-5.20); RBC Distribution Width 14.8 % (11.7-14.6); White Blood Cell Count 6.49 k/cumm (4.4-10.8)
[2020-02-29 15:27] LABS: Iron 64 ug/dL (50-170); Total Iron Binding Capacity 257 ug/dL (250-450); Transferrin Sat 25 % (15-50)
[2020-02-29 15:55] LABS: ALT 15 U/L (14-59); AST 19 U/L (15-37); Albumin 3.2 g/dL (3.4-5.0); Alkaline Phosphatase 117 U/L (46-116); Anion Gap 6.5 mmol/L (3-11); BUN 13 mg/dL (7-18); Bilirubin, Total 0.5 mg/dL (0.2-1.0); CO2 30.5 mmol/L (21.0-32.0); CREATININE 1.19 mg/dL (0.55-1.02); Calcium 8.9 mg/dL (8.5-10.1); Chloride 102 mmol/L (98-107); Estimated GFR 43.54 (mL/min/1.73m2); Ferritin 95 ng/mL (8-252); Glucose 101 mg/dL (74-106); Magnesium 1.6 mg/dL (1.8-2.4); Potassium 4.1 mmol/L (3.5-5.1); Sodium 139 mmol/L (136-145); Total Protein 7.2 g/dL (6.4-8.2); Vitamin B12 1024 pg/mL (193-986)
[2020-02-29 15:59] LABS: Folate > 20.0 ng/mL (8.6-20.0)
== END 2020-02-29 02:49 ==
PROVIDERS: PCP Family Medicine; Visit Provider Family Medicine
DX: I10 Essential (primary) hypertension (principal); D64.9 Anemia, unspecified; E83.42 Hypomagnesemia
CPT/HCPCS: 36415; 80053; 85027; 82607; 82728; 82746; 83540; 83550; 83735

== ENCOUNTER 2020-07-05 02:07 | Outpatient (CLI) | payer MEDICARE, MEDICAID, SELFPAY ==
[2020-07-05 14:52] LABS: Prothrombin Time 45.8 sec (9.3-11.0)
[2020-07-05 15:33] LABS: INR 4.7 (0.9-1.1)
== END 2020-07-05 02:27 ==
PROVIDERS: Physician Assistant; PCP Family Medicine; Visit Provider Family Medicine
DX: I42.9 Cardiomyopathy, unspecified (principal); I48.20 Chronic atrial fibrillation, unspecified
CPT/HCPCS: 36415; 85610

== ENCOUNTER 2020-07-10 03:01 | Outpatient (CLI) | payer MEDICARE, MEDICAID, SELFPAY ==
[2020-07-10 15:04] LABS: INR 2.1 (0.9-1.1); Prothrombin Time 20.4 sec (9.3-11.0)
== END 2020-07-10 03:21 ==
PROVIDERS: PCP Family Medicine; Visit Provider Family Medicine
DX: I48.91 Unspecified atrial fibrillation (principal); Z79.01 Long term (current) use of anticoagulants
CPT/HCPCS: 36415; 85610

== ENCOUNTER 2020-07-18 02:36 | Outpatient (CLI) | payer MEDICARE, MEDICAID, SELFPAY ==
[2020-07-18 14:43] LABS: INR 2.6 (0.9-1.1); Prothrombin Time 25.8 sec (9.3-11.0)
== END 2020-07-18 02:56 ==
PROVIDERS: PCP Family Medicine; Visit Provider Family Medicine
DX: I48.91 Unspecified atrial fibrillation (principal); Z79.01 Long term (current) use of anticoagulants
CPT/HCPCS: 36415; 85610

== ENCOUNTER 2020-07-26 02:42 | Outpatient (CLI) | payer MEDICARE, MEDICAID, SELFPAY | END 2020-07-26 03:02 | PROVIDERS: PCP Family Medicine; Visit Provider Family Medicine | DX: Z79.01 Long term (current) use of anticoagulants (principal); I48.91 Unspecified atrial fibrillation | CPT/HCPCS: 36415; 85610 ==

== ENCOUNTER 2020-07-30 02:33 | Outpatient (CLI) | payer MEDICARE, MEDICAID, SELFPAY ==
[2020-07-30 14:55] LABS: INR 3.9 (0.9-1.1); Prothrombin Time 37.9 sec (9.3-11.0)
== END 2020-07-30 02:53 ==
PROVIDERS: PCP Family Medicine; Visit Provider Family Medicine
DX: Z79.01 Long term (current) use of anticoagulants (principal); I48.91 Unspecified atrial fibrillation
CPT/HCPCS: 36415; 85610

== ENCOUNTER 2020-08-05 02:39 | Outpatient (CLI) | payer MEDICARE, MEDICAID, SELFPAY ==
[2020-08-05 15:05] LABS: Prothrombin Time 19.5 sec (9.3-11.0)
== END 2020-08-05 02:59 ==
PROVIDERS: PCP Family Medicine; Visit Provider Family Medicine
DX: I48.91 Unspecified atrial fibrillation (principal); Z79.01 Long term (current) use of anticoagulants
CPT/HCPCS: 36415; 85610

== ENCOUNTER 2020-08-13 04:18 | Outpatient (CLI) | payer MEDICARE, MEDICAID, SELFPAY ==
[2020-08-13 15:31] LABS: INR 1.4 (0.9-1.1); Prothrombin Time 13.8 sec (9.3-11.0)
== END 2020-08-13 04:38 ==
PROVIDERS: PCP Family Medicine; Visit Provider Family Medicine
DX: I48.91 Unspecified atrial fibrillation (principal); Z79.01 Long term (current) use of anticoagulants
CPT/HCPCS: 36415; 85610

== ENCOUNTER 2020-08-14 14:22 | Inpatient (IN) | payer MEDICARE, MEDICAID, SELFPAY ==
[2020-08-14] VITALS (41 sets, daily range): BP systolic 107–156; BP diastolic 52–106; PULSE 80–140; RESP 10–33; TEMP 36–37.1; O2SAT 88–98
--- NOTE | 2020-08-14 14:15 | RT.EKG_ITS ---
APPROVED REPORT Exam: Resting ECG Patient Location: E HR:118 bpm ECG Measurements Heart Rate 118 AXIS OR [id number] P [id number] QRSd 79 QRS 51 QT 333 T -1 QTc 467 Conclusion Atrial fibrillation...V-rate 93-126, irreg A-activity. No STEMI. I have reviewed and interpreted ECG and agree with software generated interpretation.
--- NOTE | 2020-08-14 14:45 | DI.RAD_ITS ---
EXAM: XR CHEST 2V PA LATERAL CLINICAL HISTORY: R arm tingling, r/o acute disease TECHNIQUE: 2D digital imaging was performed. COMPARISON: CR PORTABLE AP CHEST, POST LINE from 09/27/2017 FINDINGS: The heart is mildly enlarged. The lungs are clear and well expanded. No pleural effusion seen. Media stinal contours appear intact. IMPRESSION: Mild cardiomegaly. Otherwise normal chest. RADIATION DOSE DELIVERED: Total DLP Total DLP
--- NOTE | 2020-08-14 14:45 | DI.CT_ITS ---
EXAM: CT BRAIN NECK CTA CLINICAL HISTORY: sudden R arm tingling, r/o acute cva. TECHNIQUE: Imaging Protocol: Axial CT angiography was performed with multi-slice acquisition and mu lti-planar and/or 3D reconstructions. CONTRAST MATERIAL: Intravenous: Omnipaque 350 Contrast volume:structured data in ml COMPARISON: CT CT PELVIC W from 10/20/2019 FINDINGS: CT angiography of the cervical cranial region was performed according to the usual protocol with intr avenous infusion of 100 cc of Omnipaque 350.. Initial noncontrast scanning of the head shows moderate to severe cerebral atrophy and is otherwise u nremarkable. Visualized lung apices are clear. Visualized portions of thoracic aorta and pulmonary arterial circul ation are unremarkable. There is no evidence of a cervical mass or adenopathy. The tracheal laryngeal structures appear intact. The common, internal, and external carotid arteries are within normal limits in the cervical region e xcept for moderate atheromatous plaque of the proximal internal carotid arteries bilaterally with no evidence stenosis in excess of 50 percent luminal diameter. With no evidence of aneurysm or dissecti on. The vertebral arteries are unremarkable in appearance in the cervical region with no evidence of aneu rysm, stenosis, or dissection. Intracranial portions of the internal carotid arteries show moderate calcific atheromatous plaque in their cavernous portions with no evidence of a stenosis in excess of 50 percent of the luminal diamet er. Intracranial vertebral arteries and basilar artery appear normal with no evidence of aneurysm, stenos is or dissection. No aneurysm identified in the region of the [id number]. The anterior, middle, and posterior cer ebral arteries and major branches appear intact with no evidence of aneurysm, stenosis, or dissection . No enhancing brain lesion identified. IMPRESSION: No evidence of a hemodynamically significant stenosis of the cervical or intracranial major vessels a s described above. RADIATION DOSE DELIVERED: 971.41mGy.cmTotal DLP 971.41mGy.cm Total DLP DATA REPOSITORY: All CT scans at this facility are submitted to the National Radiology Data Registry (NRDR) Dose Index Registry (DIR) with the [employer] ([employer]). RADIATION OPTIMIZATION: All CT scans at this facility use at least one of these dose optimization te chniques: automated exposure control; mA and/or kV adjustment per patient size (includes targeted exa ms where dose is matched to clinical indication); or iterative reconstruction.
--- NOTE | 2020-08-14 14:55 | ED.GENADUL_ITS ---
Discharge Plan Disposition Patient Disposition: [facility] INPATIENT Condition: Stable Discharge Details Clinical Impression: TIA (transient ischemic attack), Supratherapeutic INR, Atrial fibrillation with rapid ventricular response Admit Date/Time: 08/14/20 18:02 Admit Provider: Adal Schroeder Attending Provider: Adal Schroeder Primary Care Provider: Mary Bee ED Provider: Ligia Valencia Medical Decision Making 1435 -- 80-year-old female with a history of atrial fibrillation on Coumadin, hypertension, hyperlipidemia, hypothyroidism, COPD and anemia presents for right arm numbness for a few seconds and right arm tingling and weakness for 30 minutes that occurred prior to arrival and is now resolved. EKG notes a rate of 118, atrial fibrillation no STEMI. Her heart rate is 130s. She blood pressure mildly hypertensive. She appears afebrile, nontoxic and in no acute distress. She has no focal deficits on exam. Motor/sensory grossly intact. Suspect TIA. Will give a dose of 5 mg IV Lopressor, refer for labs and CTA head and neck and chest x-ray and reassess. 1540 -- CTA head and neck negative. 1730 -- Labs reviewed. INR subtherapeutic at 1.3, she states she has had her dosing readjusted due to recent supratherapeutic INR. Denies any recent antibiotics. Troponin negative. Magnesium 1.5, will replete. TSH within normal limits. chest x-ray negative. Patient reassessed and she remains asymptomatic at this time. We will plan for admission for suspected TIA for observation overnight and telemetry monitoring. Her heart rate has improved into the high 90s to low 100s. Her blood pressure is stable. Case discussed with hospitalist who accepts patient for admission. Medical Records Medical records reviewed: Yes I reviewed the patient's medical records. Imaging Data Radiologic Study: Radiologist's impression: CT BRAIN NECK CTA CLINICAL HISTORY: sudden R arm tingling, r/o acute cva. TECHNIQUE: Imaging Protocol: Axial CT angiography was performed with multi- slice acquisition and multi-planar and/or 3D reconstructions. CONTRAST MATERIAL: Intravenous: Omnipaque 350 Contrast volume:structured data in ml COMPARISON: CT CT PELVIC W from 10/20/2019 FINDINGS: CT angiography of the cervical cranial region was performed according to the usual protocol with intravenous infusion of 100 cc of Omnipaque 350.. Initial noncontrast scanning of the head shows moderate to severe cerebral atrophy and is otherwise unremarkable. Visualized lung apices are clear. Visualized portions of thoracic aorta and pulmonary arterial circulation are unremarkable. There is no evidence of a cervical mass or adenopathy. The tracheal laryngeal structures appear intact. The common, internal, and external carotid arteries are within normal limits in the cervical region except for moderate atheromatous plaque of the proximal internal carotid arteries bilaterally with no evidence stenosis in excess of 50 percent luminal diameter. With no evidence of aneurysm or dissection. The vertebral arteries are unremarkable in appearance in the cervical region with no evidence of aneurysm, stenosis, or dissection. Intracranial portions of the internal carotid arteries show moderate calcific atheromatous plaque in their cavernous portions with no evidence of a stenosis in excess of 50 percent of the luminal diameter. Intracranial vertebral arteries and basilar artery appear normal with no evidence of aneurysm, stenosis or dissection. No aneurysm identified in the region of the [id number]. The anterior, middle, and posterior cerebral arteries and major branches appear intact with no evidence of aneurysm, stenosis, or dissection. No enhancing brain lesion identified. IMPRESSION: No evidence of a hemodynamically significant stenosis of the cervical or intracranial major vessels as described above. XR CHEST 2V PA LATERAL CLINICAL HISTORY: R arm tingling, r/o acute disease TECHNIQUE: 2D digital imaging was performed. COMPARISON: CR PORTABLE AP CHEST, POST LINE from 09/27/2017 FINDINGS: The heart is mildly enlarged. The lungs are clear and well expanded. No pleural effusion seen. Mediastinal contours appear intact. IMPRESSION: Mild cardiomegaly. Otherwise normal chest. Lab Data Lab results reviewed: Yes I reviewed the patient's lab results. Labs: Laboratory Tests Range/Units 08/14/20 08/14/20 08/14/20 15:00 15:00 15:00 WBC (4.4-10.8) 10^3/uL 7.13 RBC (3.93-5.22) 10^6/uL 3.94 Hgb (11.2-15.7) g/dL 13.4 Hct (36.0-46.0) % 40.2 MCV (80-95) fL 102.0 H MCH (27.0-33.0) pg 34.0 H MCHC (32.0-36.0) % 33.3 RDW (11.7-14.6) % 14.0 Plt Count (130-400) 10^3/uL 219 MPV (8.0-11.0) fL 10.0 Immature Gran % 0.3 Neutrophils % 71.7 Lymphocytes % 14.7 Monocytes % 9.5 Eosinophils % 3.5 Basophils % 0.3 Nucleated RBC % % 0 Absolute Neutrophils (1.2-6.7) 10^3/uL 5.11 Absolute Lymphocytes (1.2-3.4) 10^3/uL 1.05 L Absolute Monocytes (0.1-0.8) 10^3/uL 0.68 Absolute Eosinophils (0.0-0.7) 10^3/uL 0.25 Absolute Basophils (0.0-0.2) 10^3/uL 0.02 PT (9.3-11.0) sec 13.2 H INR (0.9-1.1) 1.3 H APTT (21.0-27.5) sec 24.7 Sodium (136-145) mmol/L 135 L Potassium (3.5-5.1) mmol/L 4.1 Chloride (98-107) mmol/L 98 Carbon Dioxide (21.0-32.0) mmol/L 30.3 Anion Gap (3-11) mmol/L 6.7 BUN (7-18) mg/dL 17 Creatinine (0.55-1.02) mg/dL 1.36 H Estimated GFR/1.73 m2 (mL/min/1.73m2) 37.32 Glucose (74-106) mg/dL 100 Calcium (8.5-10.1) mg/dL 9.4 Magnesium (1.8-2.4) mg/dL 1.5 L Total Bilirubin (0.2-1.0) mg/dL 0.9 AST (15-37) U/L 23 ALT (14-59) U/L 16 Alkaline Phosphatase (46-116) U/L 113 Troponin I (<0.06) ng/mL < 0.05 Total Protein (6.4-8.2) g/dL 8.1 Albumin (3.4-5.0) g/dL 3.5 TSH (0.36-3.74) uIU/mL Range/Units 08/14/ 15:00 WBC (4.4-10.8) 10^3/uL RBC (3.93-5.22) 10^6/uL Hgb (11.2-15.7) g/dL Hct (36.0-46.0) % MCV (80-95) fL MCH (27.0-33.0) pg MCHC (32.0-36.0) % RDW (11.7-14.6) % Plt Count (130-400) 10^3/uL MPV (8.0-11.0) fL Immature Gran % Neutrophils % Lymphocytes % Monocytes % Eosinophils % Basophils % Nucleated RBC % % Absolute Neutrophils (1.2-6.7) 10^3/uL Absolute Lymphocytes (1.2-3.4) 10^3/uL Absolute Monocytes (0.1-0.8) 10^3/uL Absolute Eosinophils (0.0-0.7) 10^3/uL Absolute Basophils (0.0-0.2) 10^3/uL PT (9.3-11.0) sec INR (0.9-1.1) APTT (21.0-27.5) sec Sodium (136-145) mmol/L Potassium (3.5-5.1) mmol/L Chloride (98-107) mmol/L Carbon Dioxide (21.0-32.0) mmol/L Anion Gap (3-11) mmol/L BUN (7-18) mg/dL Creatinine (0.55-1.02) mg/dL Estimated GFR/1.73 m2 (mL/min/1.73m2) Glucose (74-106) mg/dL Calcium (8.5-10.1) mg/dL Magnesium (1.8-2.4) mg/dL Total Bilirubin (0.2-1.0) mg/dL AST (15-37) U/L ALT (14-59) U/L Alkaline Phosphatase (46-116) U/L Troponin I (<0.06) ng/mL Total Protein (6.4-8.2) g/dL Albumin (3.4-5.0) g/dL TSH (0.36-3.74) uIU/mL 2.54 ECG Data Attestation: I personally reviewed and interpreted this ECG (s) as follows: Interpretation: Rate of 118, atrial fibrillation. No acute ST elevation or depression. HPI General Mode of arrival: wheelchair . Date/Time Provider Initiated Documentation: 08/14/20 14:23 . Limitations to Documentation: no limitations . Information obtained by: patient . HPI Narrative: Patient is an 80-year-old female with a history of atrial fibrillation, COPD, hypertension, hyperlipidemia, hypothyroidism, CHF, cardiomyopathy presents for sudden onset of right arm tingling and weakness that occurred while she was sitting at home just prior to arrival. Patient states she felt like my right arm did not belong to me and was flopping around. She states it mainly lasted for a few seconds and then resolves. She states she still has a funny feeling in her right forearm but denies any pain. She denies any known injury. She denies any fever, chest pain, shortness of breath, headache, visual changes, slurred speech, left arm or leg symptoms. Related Data Home Medications Medication Instructions Recorded Confirmed Women's Multivitamin Gummies 200 mcg PO DAILY #150 tab.chew 06/01/16 08/14/20 thiamine mononitrate (vit B1) 100 mg PO DAILY 11/24/17 08/14/20 atenolol 100 mg tablet 100 - 150 mg PO BID #225 tab-cap 06/14/19 08/14/20 furosemide 20 mg tablet 10 mg PO DAILY #45 tab 08/16/19 08/14/20 losartan 50 mg tablet 50 mg PO DAILY #90 tab-cap 08/16/19 08/14/20 vitamin [id number] acid 1,000 heidi SUBLINGUAL DAILY 10/20/19 08/14/20 acetaminophen [Mapap Extra 1,000 mg PO TID #90 tab 10/23/19 08/14/20 Strength] bisacodyl 10 mg AK DAILY PRN PRN #5 ea 10/23/19 08/14/20 polyethylene glycol 3350 [Miralax] 17 gm PO DAILY #10 each 10/23/19 08/14/20 warfarin 2 mg tablet 2 mg PO DAILY #90 tab 12/26/19 08/14/20 fluticasone furoate 100 1 inh INHALATION DAILY #28 each 01/23/20 08/14/20 mcg-vilanterol 25 mcg/dose inhalation powder levothyroxine 88 mcg tablet 88 mcg PO DAILY #90 tab 03/19/20 08/14/20 magnesium oxide 400 mg (241.3 mg 400 mg PO BID #60 tab-cap 06/07/20 08/14/20 magnesium) tablet albuterol sulfate 90 mcg/actuation 2 puff IH QID PRN #18 gm 07/30/20 08/14/20 aerosol inhaler Previous Rx's Medication Instructions Recorded atenolol 100 mg tablet 100 - 150 mg PO BID #225 tab-cap 06/14/19 furosemide 20 mg tablet 10 mg PO DAILY #45 tab 08/16/19 losartan 50 mg tablet 50 mg PO DAILY #90 tab-cap 08/16/19 acetaminophen [Mapap Extra 1,000 mg PO TID #90 tab 10/23/19 Strength] bisacodyl 10 mg AK DAILY PRN PRN #5 ea 10/23/19 polyethylene glycol 3350 [Miralax] 17 gm PO DAILY #10 each 10/23/19 warfarin 2 mg tablet 2 mg PO DAILY #90 tab 12/26/19 fluticasone furoate 100 1 inh INHALATION DAILY #28 each 01/23/20 mcg-vilanterol 25 mcg/dose inhalation powder levothyroxine 88 mcg tablet 88 mcg PO DAILY #90 tab 03/19/20 magnesium oxide 400 mg (241.3 mg 400 mg PO BID #60 tab-cap 06/07/20 magnesium) tablet albuterol sulfate 90 mcg/actuation 2 puff IH QID PRN #18 gm 07/30/20 aerosol inhaler Allergies Allergy/AdvReac Type Severity Reaction Status Date / Time sulfamethoxazole AdvReac Mild NAUSEA Unverified 05/29/20 14:47 trimethoprim AdvReac Mild NAUSEA Unverified 05/29/20 14:47 MELISSA Inhibitors AdvReac Unknown RENAL Unverified 05/29/20 14:47 INSUFFIENCIENCY benazepril AdvReac Unknown Unverified 05/29/20 14:47 lovastatin AdvReac Unknown LIGHTHEADED Unverified 05/29/20 14:47 NESS methyldopa AdvReac Unknown Unverified 05/29/20 14:47 simvastatin [From Zocor] AdvReac Unknown BODY ACHES Unverified 05/29/20 14:47 W/ HIGHER DOSES General Stated Complaint: GenMedical ERNESTO: 3 Review of Systems All systems reviewed & are unremarkable except as noted in HPI and below Constitutional Constitutional: Reports as per HPI, Denies chills and Denies fever(s) Eyes Eyes: Denies blurry vision ENT Ears, Nose, Mouth, and Throat: Denies dizziness, Denies sore throat and Denies throat swelling Cardiovascular Cardiovascular: Denies chest pain and Denies dyspnea Respiratory Respiratory: Denies cough and Denies dyspnea Gastrointestinal Gastrointestinal: Denies abdominal pain, Denies diarrhea and Denies vomiting Genitourinary Genitourinary: Denies hematuria and Denies dysuria Musculoskeletal Musculoskeletal: Denies back pain and Reports numbness Integumentary/Breasts Skin/Breast: Denies lesions and Denies rash Neurologic Neurologic: Denies dizziness, Reports localized weakness and Reports numbness Allergic/Immunologic Allergic/Immunologic: Denies throat swelling [facility] Medical History Acute on chronic systolic CHF (congestive heart failure) Atrial fibrillation Cardioversion and Amiodarone in 2011: successfull but reverted 1 week later- amiodarone d/c /ON COUMADIN Cardiomyopathy unclear etiology/ EF as low as 25% in 2011-back up around 50% post a.fib. rate regulated and post infection/poss. A.Fib. related vs etoh Closed fracture of left femur (08/22/17) left periprosthetic femur fracture post fall- treated [facility] [place] (open reduction/int.fixation) Closed pelvic fracture Essential hypertension (06/20/13) Hyperlipidemia Hyponatremia (05/06/16) [facility] [place] Nephrology : pb tubular nephron reabsorption; (pager [phone]) Hypothyroidism Pneumonia Polyp of colon Sensorineural hearing loss, bilateral (02/05/14) Surgical History Bilateral salpingectomy with oophorectomy Debridement, Soft Tissue (09/29/17) IRRIGATION AND DEBRIDEMENT LEFT HIP INCISION--PLACEMENT PF LANCE DRAIN ASPIRATION LEFT TKA Status post open reduction with internal fixation of fracture Total replacement of hip (07/08/11) LEFT Family History Mother , AGE 92 No problems noted. Father , AGE 92 Stroke Sister , AGE 93 No problems noted. Sister , AGE 89 No problems noted. Brother , AGE 90 Lung cancer Heart disease Brother , AGE 90 Heart disease Bone cancer Son Alcohol abuse Son , AT No problems noted. Son Alcohol abuse Daughter No problems noted. Daughter No problems noted. Daughter No problems noted. Maternal Grandfather Alcohol abuse Paternal Grandfather , age 100 No problems noted. Maternal Grandmother , age 82 No problems noted. Paternal Grandmother , age 100 No problems noted. Social History Smoking/Tobacco Use Status: Never Second Hand Exposure: Yes Smoking risk assessment performed?: Yes Alcohol Intake: current Alcohol Intake frequency: a few times a week Alcohol type: hard liquor Drug use: Never Substance use type: does not use Caregiver/Support person: No Household members: none Housing: apartment Communication Needs: Deaf and Corrective Lenses Do you need help understanding health information?: Rarely Pets and animals: Yes Pets and animals: cat(s) Sexually active: No Do you think of yourself as: straight/heterosexual Current gender identity: female What is your relationship status?: How often do you talk on the phone with friends or family?: three or more times per week How often do you get together with friends or relatives?: three or more times per week How often do you attend oriental orthodox or jain services?: 1-3 times per year Do you belong to any clubs or organized social groups?: yes Panel score (0-1 are the most socially isolated patients): 2 Duration: 45-60 minutes/day Frequency: 1-2 times per week Diane/Cheondoism: Orthodoxy Special diane needs: No Seatbelt use: always Drive intox or ride w/intox bicycle taxi driver: No Do you feel safe at home: Yes Do you feel safe in your relationship?: Yes Exam Const General: cooperative and no acute distress Orientation: alert, awake and oriented x3 HENMT Head: normal to inspection Ears: hearing grossly normal bilaterally and external ears normal General nose exam: external nose normal Face and sinus: normal facial exam Mouth: oral mucosae normal Teeth and gingiva: dentition normal Throat: posterior oropharynx normal Eyes General: appearance normal, both eyes and all related structures Eyelids: eyelids normal Pupils: PERRL EOM: EOM intact bilaterally Neck Neck: normal visual inspection Lymphatic: no lymphadenopathy noted Chest Chest: normal inspection of the chest Resp Effort & Inspection: normal respiratory effort and able to speak in complete sentences Auscultation: clear to auscultation bilaterally Cardio Rate: tachycardic Rhythm: abnormal rhythm irregularly irregular GI Inspection: normal to inspection Palpation: soft, not firm, no guarding, no hepatosplenomegaly, no masses and nontender Auscultation: normal bowel sounds Skin General skin exam: no rashes or lesions noted Neuro General: patient alert, patient awake, patient oriented x3, moves all extremities, no meningeal signs and no focal motor deficits Cranial Nerves: CN's II-XI intact bilaterally Cognition: normal cognition Speech: speech normal Gait: normal gait Motor: muscle tone normal throughout and strength 5/5 throughout Sensory Exam: no sensory deficits noted Extrem General: normal to inspection, full ROM, capillary refill normal and no edema Psych Appearance: grossly normal Mental Status: mental status grossly normal Speech and Movement: speech and movement normal Affect: normal affect Thought Process: normal Course Vital Signs Vital signs: Vital Signs Temperature 97.5 F L 08/14/20 14:25 Pulse 133 H 08/14/20 14:25 Respiratory Rate 20 08/14/20 14:25 Blood Pressure 152/86 H 08/14/20 14:25 Pulse Oximetry 97 08/14/20 14:25 Temperature 97.5 F L 08/14/20 14:25 Temperature Source Skin 08/14/20 14:25 Pulse 133 H 08/14/20 14:25 Respiratory Rate 20 08/14/20 14:25 Blood Pressure 152/86 H 08/14/20 14:25 Blood Pressure Position Sitting 08/14/20 14:25 Pulse Oximetry 97 08/14/20 14:25 Oxygen Delivery Method Room Air 08/14/20 14:25 Oxygen Flow Rate 0 08/14/20 14:25 Pain Level 0 08/14/20 14:25
[2020-08-14 15:12] LABS: Abs Immature Grans 0.02 10^3/uL (0.0-0.06); Absolute Basophil Count 0.02 10^3/uL (0.0-0.2); Absolute Eosinophil Count 0.25 10^3/uL (0.0-0.7); Absolute Lymphocyte Count 1.05 10^3/uL (1.2-3.4); Absolute Monocyte Count 0.68 10^3/uL (0.1-0.8); Absolute Neutrophil Count 5.11 10^3/uL (1.2-6.7); Basophils % 0.3; Eosinophils % 3.5; HCT 40.2 % (36.0-46.0); HGB 13.4 g/dL (11.2-15.7); Immature Grans % 0.3; Lymphocytes % 14.7; MCHC 33.3 % (32.0-36.0); Monocytes % 9.5; Neutrophils % 71.7; Nucleated RBC 0 %; Platelet Count 219 10^3/uL (130-400); RBC 3.94 10^6/uL (3.93-5.22); RDW-SD 52.6 fL; WBC 7.13 10^3/uL (4.4-10.8)
[2020-08-14 15:27] LABS: INR 1.3 (0.9-1.1); PTT Activated 24.7 sec (21.0-27.5); Prothrombin Time 13.2 sec (9.3-11.0)
[2020-08-14 15:28] LABS: ALT 16 U/L (14-59); AST 23 U/L (15-37); Albumin 3.5 g/dL (3.4-5.0); Alkaline Phosphatase 113 U/L (46-116); Anion Gap 6.7 mmol/L (3-11); BUN 17 mg/dL (7-18); Bilirubin, Total 0.9 mg/dL (0.2-1.0); CO2 30.3 mmol/L (21.0-32.0); CREATININE 1.36 mg/dL (0.55-1.02); Calcium 9.4 mg/dL (8.5-10.1); Chloride 98 mmol/L (98-107); Estimated GFR 37.32 (mL/min/1.73m2); Glucose 100 mg/dL (74-106); Magnesium 1.5 mg/dL (1.8-2.4); Potassium 4.1 mmol/L (3.5-5.1); Sodium 135 mmol/L (136-145); Total Protein 8.1 g/dL (6.4-8.2)
[2020-08-14 15:30] LABS: Troponin I < 0.05 ng/mL (<0.06)
[2020-08-14] MEDS: Omnipaque 350 MG/ML 100 ML BTL IJ (15:42)
[2020-08-14] MEDS: Normal Saline - Diluent 50 ML VIAL IV (15:43)
[2020-08-14] MEDS: Metoprolol 5 MG/5 ML VIAL IVP (15:54)
[2020-08-14] MEDS: MAGNESIUM SULFATE 1 GM/100 ML BAG IVPB (16:05)
[2020-08-14 16:26] LABS: TSH (W/Ref FT4) 2.54 uIU/mL (0.36-3.74)
--- NOTE | 2020-08-14 17:45 | W.PM.HP.N ---
Date of service: 08/14/20 Time of Service: 17:45 Assessment and Plan Assessment and plan (1) TIA (transient ischemic attack): Status: Acute Assessment and plan: Likely a TIA, though transient cervical lesion to be considered (highly doubtful). Unclear whether due to subtherapeutic INR (suddenness of onset does favor embolic etiology) or atherothrombotic. For now probably best to give at least single dose ASA and will give additional Coumadin as well. AF: will give additional beta tricia as needed for now for rate control. Reviewed ADs, requests DNR History of Present Illness History of Present Illness Chief Complaint: tia Narrative: 80 female with AF, recent adjustments in coumadin. comes in with sudden onset 30-60 minutes of right arm feeling numb and tingly. No LUIS, visual changes or language disturbance. In ER neuro exam normal. CT head neg., CTA shows bilateral carotid plaque but no stenoses > 50%. INR 1.3. Patient feels entirely well at present. Other notable findings in ER Mg 1.5, has received replacement, and pulse in 130s, has received 65 Lopressor IV (on top of baseline Atenolol). Admitted for further management. Review of Systems All systems reviewed & are unremarkable except as noted in HPI and below [facility] Medical History Acute on chronic systolic CHF (congestive heart failure) Atrial fibrillation Cardioversion and Amiodarone in 2011: successfull but reverted 1 week later- amiodarone d/c /ON COUMADIN Cardiomyopathy unclear etiology/ EF as low as 25% in 2011-back up around 50% post a.fib. rate regulated and post infection/poss. A.Fib. related vs etoh Closed fracture of left femur (08/22/17) left periprosthetic femur fracture post fall- treated [facility] [place] (open reduction/int.fixation) Closed pelvic fracture Essential hypertension (06/20/13) Hyperlipidemia Hyponatremia (05/06/16) [facility] [place]phrology : pb tubular nephron reabsorption; (pager [phone]) Hypothyroidism Pneumonia Polyp of colon Sensorineural hearing loss, bilateral (02/05/14) Surgical History Bilateral salpingectomy with oophorectomy Debridement, Soft Tissue (09/29/17) IRRIGATION AND DEBRIDEMENT LEFT HIP INCISION--PLACEMENT PF LANCE DRAIN ASPIRATION LEFT TKA Status post open reduction with internal fixation of fracture Total replacement of hip (07/08/11) LEFT Family History Mother , AGE 92 No problems noted. Father , AGE 92 Stroke Sister , AGE 93 No problems noted. Sister , AGE 89 No problems noted. Brother , AGE 90 Lung cancer Heart disease Brother , AGE 90 Heart disease Bone cancer Son Alcohol abuse Son , AT No problems noted. Son Alcohol abuse Daughter No problems noted. Daughter No problems noted. Daughter No problems noted. Maternal Grandfather Alcohol abuse Paternal Grandfather , age 100 No problems noted. Maternal Grandmother , age 82 No problems noted. Paternal Grandmother , age 100 No problems noted. Social History Smoking/Tobacco Use Status: Never Second Hand Exposure: Yes Smoking risk assessment performed?: Yes Alcohol Intake: current Alcohol Intake frequency: a few times a week Alcohol type: hard liquor Drug use: Never Substance use type: does not use Caregiver/Support person: No Household members: none Housing: apartment Communication Needs: Deaf and Corrective Lenses Do you need help understanding health information?: Rarely Pets and animals: Yes Pets and animals: cat(s) Sexually active: No Do you think of yourself as: straight/heterosexual Current gender identity: female What is your relationship status?: How often do you talk on the phone with friends or family?: three or more times per week How often do you get together with friends or relatives?: three or more times per week How often do you attend jain or adventist services?: 1-3 times per year Do you belong to any clubs or organized social groups?: yes Panel score (0-1 are the most socially isolated patients): 2 Duration: 45-60 minutes/day Frequency: 1-2 times per week Diane/Mormonism: Nondenominational Special diane needs: No Seatbelt use: always Drive intox or ride w/intox trailer driver: No Do you feel safe at home: Yes Do you feel safe in your relationship?: Yes Meds Home Medications and Allergies Home Medications Medication Instructions Recorded Confirmed Type Women's Multivitamin Gummies 200 mcg PO DAILY #150 tab.chew 06/01/16 08/14/20 History thiamine mononitrate (vit B1) 100 mg PO DAILY 11/24/17 08/14/20 History Proventil Hfa 1 - 2 puff INHALATION [id number] PRN 01/06/18 08/14/20 Clinic #1 inhaler atenolol 100 mg tablet 100 - 150 mg PO BID #225 tab-cap 06/14/19 08/14/20 Rx furosemide 20 mg tablet 10 mg PO DAILY #45 tab 08/16/19 08/14/20 Rx losartan 50 mg tablet 50 mg PO DAILY #90 tab-cap 08/16/19 08/14/20 Rx vitamin [id number] acid 1,000 heidi SUBLINGUAL DAILY 10/20/19 08/14/20 History acetaminophen [Mapap Extra 1,000 mg PO TID #90 tab 10/23/19 08/14/20 Rx Strength] bisacodyl 10 mg WV DAILY PRN PRN #5 ea 10/23/19 08/14/20 Rx polyethylene glycol 3350 [Miralax] 17 gm PO DAILY #10 each 10/23/19 08/14/20 Rx warfarin 2 mg tablet 2 mg PO DAILY #90 tab 12/26/19 08/14/20 Rx fluticasone furoate 100 1 inh INHALATION DAILY #28 each 01/23/20 08/14/20 Rx mcg-vilanterol 25 mcg/dose inhalation powder levothyroxine 88 mcg tablet 88 mcg PO DAILY #90 tab 03/19/20 08/14/20 Rx magnesium oxide 400 mg (241.3 mg 400 mg PO BID #60 tab-cap 06/07/20 08/14/20 Rx magnesium) tablet albuterol sulfate 90 mcg/actuation 2 puff IH QID PRN #18 gm 07/30/20 08/14/20 Rx aerosol inhaler Allergies Allergy/AdvReac Type Severity Reaction Status Date / Time sulfamethoxazole AdvReac Mild NAUSEA Unverified 05/29/20 14:47 trimethoprim AdvReac Mild NAUSEA Unverified 05/29/20 14:47 MELISSA Inhibitors AdvReac Unknown RENAL Unverified 05/29/20 14:47 INSUFFIENCIENCY benazepril AdvReac Unknown Unverified 05/29/20 14:47 lovastatin AdvReac Unknown LIGHTHEADED Unverified 05/29/20 14:47 NESS methyldopa AdvReac Unknown Unverified 05/29/20 14:47 simvastatin [From Zocor] AdvReac Unknown BODY ACHES Unverified 05/29/20 14:47 W/ HIGHER DOSES Exam Narrative Exam Narrative: 124/66, 137 (last recorded, 108 during my exam), 36.1; 17, 97% RA. HEENT atraumatic; neck supple w/o bruit, lungs diminished but clear; heart irr/irr w/o MRG; abdomen soft NT; extremities w/o edema; neuro Ox3, PERRL, EOMI, bates full, no facial asymmetry, motor 5/5, sensory intact light touch Results Labs Result diagrams: 08/14/20 15:00 08/14/20 15:00 Labs: Laboratory Results - last 24 hr 08/14/20 08/14/20 08/14/20 15:00 15:00 15:00 WBC 7.13 RBC 3.94 Hgb 13.4 Hct 40.2 MCV 102.0 H MCH 34.0 H MCHC 33.3 RDW 14.0 Plt Count 219 MPV 10.0 Immature Gran % 0.3 Neutrophils % 71.7 Lymphocytes % 14.7 Monocytes % 9.5 Eosinophils % 3.5 Basophils % 0.3 Nucleated RBC % 0 Absolute Neutrophils 5.11 Absolute Lymphocytes 1.05 L Absolute Monocytes 0.68 Absolute Eosinophils 0.25 Absolute Basophils 0.02 PT 13.2 H INR 1.3 H APTT 24.7 Sodium 135 L Potassium 4.1 Chloride 98 Carbon Dioxide 30.3 Anion Gap 6.7 BUN 17 Creatinine 1.36 H Estimated GFR/1.73 m2 37.32 Glucose 100 Calcium 9.4 Magnesium 1.5 L Total Bilirubin 0.9 AST 23 ALT 16 Alkaline Phosphatase 113 Troponin I < 0.05 Total Protein 8.1 Albumin 3.5 TSH 08/14/20 15:00 WBC RBC Hgb Hct MCV MCH MCHC RDW Plt Count MPV Immature Gran % Neutrophils % Lymphocytes % Monocytes % Eosinophils % Basophils % Nucleated RBC % Absolute Neutrophils Absolute Lymphocytes Absolute Monocytes Absolute Eosinophils Absolute Basophils PT INR APTT Sodium Potassium Chloride Carbon Dioxide Anion Gap BUN Creatinine Estimated GFR/1.73 m2 Glucose Calcium Magnesium Total Bilirubin AST ALT Alkaline Phosphatase Troponin I Total Protein Albumin TSH 2.54 Last Vital Signs Temp 36.4 C L 08/14/20 14:25 Pulse 137 H 08/14/20 15:54 Resp 17 08/14/20 16:24 BP 124/66 08/14/20 15:54 Pulse Ox 97 08/14/20 14:25 COVID-19 Screening Have you, or household traveled for leisure in last 14 days?: No Had IN PERSON contact w/suspected or confirmed C-19 person: No
[2020-08-14] MEDS: Aspirin 325 MG TAB PO (18:43)
[2020-08-14] MEDS: Acetaminophen 500 MG TAB 1000 MG PO (20:17)
[2020-08-14] MEDS: Warfarin 5 MG TAB PO (20:17)
[2020-08-14] MEDS: Atenolol 50 MG TAB PO (20:17)
[2020-08-14] MEDS: Magnesium Oxide 400 MG TAB PO (20:17)
[2020-08-15] VITALS (11 sets, daily range): BP systolic 99–129; BP diastolic 52–77; PULSE 61–87; RESP 16–18; TEMP 35.9–36.8; O2SAT 97–99
[2020-08-15] MEDS: Normal Saline Flush 10 ML SYR IVP (00:07)
[2020-08-15] MEDS: Levothyroxine 88 MCG TAB PO (05:38)
[2020-08-15 07:01] LABS: INR 1.3 (0.9-1.1); Prothrombin Time 12.7 sec (9.3-11.0)
[2020-08-15] MEDS: Acetaminophen 500 MG TAB 1000 MG PO ×3 (07:21→20:14)
[2020-08-15] MEDS: Magnesium Oxide 400 MG TAB PO ×2 (07:22→20:14)
--- NOTE | 2020-08-15 12:17 | W.PM.PROGNOT ---
Date of Service Date of service: 08/15/20 Time of Service: 12:17 Assessment and Plan Assessment and plan (1) TIA (transient ischemic attack): Status: Acute Assessment and plan: will obtain MRI of brain in the a.m. to assess for evidence of recent strokes. CTA of the neck did not demonstrate any stenosis over 50%. However, with her chronic afib and labile INR, she would benefit from starting on a DOAC. I will start her on Apixaban 5 mg bid. Also her afib is under variable control. Last night she required extra beta tricia. Her BP is marginal therefore I have put her losartan on hold. We may need to dc her atenolol in favor of lopressor or ziac (2) Atrial fibrillation: Status: Chronic Assessment and plan: Variable rate control with borderline low blood pressure readings. I would favor discontinuation of her atenolol and then support of either Lopressor or bisoprolol. Qualifiers: Atrial fibrillation type: persistent (not longstanding) Qualified Code(s): I48.19 - Other persistent atrial fibrillation (3) Cardiomyopathy: Status: Chronic Assessment and plan: Unfortunately we are unable to get an echocardiogram this weekend. I may be able to perform a [id number] echocardiogram tomorrow. We will arrange for formal follow-up echocardiogram upon discharge. At present time she does not seem to be in decompensated congestive heart failure. I will continue current dose of Lasix. Because of borderline low blood pressure readings have had to withhold her losartan and may need to reduce the dose. Continue her current low dose furosemide as she appears to be euvolemic. Qualifiers: Cardiomyopathy type: unspecified Qualified Code(s): I42.9 - Cardiomyopathy, unspecified (4) Chronic anticoagulation: Status: Acute Assessment and plan: As above Subjective Subjective Interval history since last seen: See her H&P for details. Patient sustained symptoms suggestive of TIA (transient RUE numbness/tingling) while she was on warfarin. Patient has chronic afib and cardiomyopathy (last echo 03/24/2017; LVEF 45-50%, diffuse HK). Patient states that her PCP has had difficulty controlling her INR and she has been through a number of adjustments of her warfarin dose. I asked her whether or not she had been considered for a DOAC and I named a few. She indicated that she has heard of them on commercials but this was never brought up for discussion. I reviewed the indications, alternatives, benefits and risks of a DOAC particularly Apixaban. She seemed interested and wants to try this rather than having to keep monitoring her INR and constantly adjusting her warfarin. She has had no further TIA symptoms. I will dc her warfarin and put her on Apixaban [address] of her head was negative for bleed or CVA. CTA of head and neck demonstrated atheromatous plaques of the ICA bilaterally both in neck and intracranial but no hemodynamic stenosis over 50% was seen. Exam Narrative Exam Narrative: Elderly female sitting up in her chair in no acute distress. She is alert and oriented person place time circumstance. Lungs are clear to auscultation. Heart is irregularly irregular at a controlled rate with a soft systolic murmur over the apex no thrill or heave Abdomen soft and nontender Lower extremities without peripheral cyanosis or edema Objective Last Vital Signs Temp 36.6 C 08/15/20 11:12 Pulse 80 08/15/20 11:12 Resp 16 08/15/20 11:12 BP 129/77 08/15/20 11:16 Pulse Ox 99 08/15/20 11:12 Laboratory Results - last 24 hr 08/14/20 08/14/20 08/14/20 15:00 15:00 15:00 WBC 7.13 RBC 3.94 Hgb 13.4 Hct 40.2 MCV 102.0 H MCH 34.0 H MCHC 33.3 RDW 14.0 Plt Count 219 MPV 10.0 Immature Gran % 0.3 Neutrophils % 71.7 Lymphocytes % 14.7 Monocytes % 9.5 Eosinophils % 3.5 Basophils % 0.3 Nucleated RBC % 0 Absolute Neutrophils 5.11 Absolute Lymphocytes 1.05 L Absolute Monocytes 0.68 Absolute Eosinophils 0.25 Absolute Basophils 0.02 PT 13.2 H INR 1.3 H APTT 24.7 Sodium 135 L Potassium 4.1 Chloride 98 Carbon Dioxide 30.3 Anion Gap 6.7 BUN 17 Creatinine 1.36 H Estimated GFR/1.73 m2 37.32 Glucose 100 Calcium 9.4 Magnesium 1.5 L Total Bilirubin 0.9 AST 23 ALT 16 Alkaline Phosphatase 113 Troponin I < 0.05 Total Protein 8.1 Albumin 3.5 TSH 08/14/20 08/15/20 15:00 06:20 WBC RBC Hgb Hct MCV MCH MCHC RDW Plt Count MPV Immature Gran % Neutrophils % Lymphocytes % Monocytes % Eosinophils % Basophils % Nucleated RBC % Absolute Neutrophils Absolute Lymphocytes Absolute Monocytes Absolute Eosinophils Absolute Basophils PT 12.7 H INR 1.3 H APTT Sodium Potassium Chloride Carbon Dioxide Anion Gap BUN Creatinine Estimated GFR/1.73 m2 Glucose Calcium Magnesium Total Bilirubin AST ALT Alkaline Phosphatase Troponin I Total Protein Albumin TSH 2.54
--- NOTE | 2020-08-15 13:53 | PDOC.CMIN ---
- If Service Date Differs Date of service: 08/15/20 Time of Service: 14:12 Care Management Initial Assess REASON FOR HOSPITALIZATION:: TIA PAST MEDICAL HISTORY/PAST SURGICAL HISTORY:: Acute on chronic systolic CHF (congestive heart failure), Atrial fibrillation. Cardioversion and Amiodarone in 2011: successfull but reverted 1 week later- amiodarone d/c /ON COUMADIN, Bilateral salpingectomy with oophorectomy, Debridement, Soft Tissue (09/29/17), IRRIGATION AND DEBRIDEMENT LEFT HIP INCISION--PLACEMENT PF LANCE DRAIN, ASPIRATION LEFT TKA, Status post open reduction with internal fixation of fracture, Total left replacement of hip (07/08/11), Cardiomyopathy,. Closed fracture of left femur (08/22/17), Closed pelvic fracture, Essential hypertension (06/20/13), Hyperlipidemia, Hyponatremia (05/06/16). [facility] [place] : pb tubular nephron reabsorption; (pager [phone]), Hypothyroidism, Pneumonia, Polyp of colon. Sensorineural hearing loss, bilateral (02/05/14) PREVIOUS FUNCTIONAL STATUS/SOCIAL/FAMILY SUPPORTS:: Reta has been for 14 years. She lives alone in an apartment at [facility]. She is able to perform all of her own care and ADLs. She has 9 children and 19 grandchildren who are helpful and supportive. Reta had 4 siblings but they are all . Her main supports are her son Rashid and his girlfriend Torri. They both help Reta with acquiring food and transportation. Reta reports having many friends locally. She also reports enjoying her stay at the [facility] this time last year after her fall. She speaks highly of where she resides, in [place] [facility] where she has been for the last ten years. CURRENT FUNCTIONAL STATUS:: Pleasant in interaction, forthcoming with information, personable. ADVANCE DIRECTIVES:: COLST on file at [facility] Has patient been provided with info about the portal/API?: Yes Did the patient sign up for the portal?: No CODE STATUS:: DNR/DNI INSURANCE COVERAGE / FINANCIAL ISSUES:: MCR. [place] CURRENT HOME/COMMUNITY SERVICES/EQUIPMENT:: FWW, detention housing, Moderate support (homemaker approved no current staffing), COA CM (unsure of name-new hire), before COVID did independent living exercise class at [facility] (really liked it). PRIMARY CARE PHYSICIAN:: Mary Bee POTENTIAL DISCHARGE NEEDS:: Increase services, evaluation for further needs. PATIENT/FAMILY EDUCATION NEEDS:: Review discharge instructions, discuss Ask Me Three. ANTICIPATED BARRIERS TO DISCHARGE:: None identifed. TRANSPORTATION:: Private vehicle with family. PLAN:: Anticipate Reta will return home when ready per MD. She will have new prescription for Eliquis; no copay anticipated but CM will fax to [facility] in [place] (closed for holiday) tomorrow to confirm. Reta will resume outpatient supports, follow up with her PCP and plan of care as prescribed and transport via private vehicle with family.
[2020-08-15] MEDS: Apixaban 5 MG TAB PO ×2 (14:16→20:15)
[2020-08-15] MEDS: MAGNESIUM SULFATE 4 GM/100 ML BAG IVPB (14:16)
[2020-08-15] MEDS: Atenolol 50 MG TAB 100 MG PO (20:14)
[2020-08-16] VITALS (8 sets, daily range): BP systolic 96–127; BP diastolic 56–81; PULSE 64–82; RESP 18–20; TEMP 36.1–36.9; O2SAT 94–99
[2020-08-16 01:56] LABS: COVID-19 RT-PCR UVMMC Result Negative (Negative)
[2020-08-16] MEDS: Levothyroxine 88 MCG TAB PO (05:58)
[2020-08-16 07:33] LABS: Calculated LDL 82 mg/dL (<100); Cholesterol 159 mg/dL (<200); HDL Cholesterol 49 mg/dL (40-60); Triglyceride 144 mg/dL (<150)
[2020-08-16 07:41] LABS: Anion Gap 3.1 mmol/L (3-11); BUN 26 mg/dL (7-18); CO2 28.9 mmol/L (21.0-32.0); CREATININE 1.59 mg/dL (0.55-1.02); Calcium 8.9 mg/dL (8.5-10.1); Chloride 97 mmol/L (98-107); Estimated GFR 31.16 (mL/min/1.73m2); Glucose 103 mg/dL (74-106); Magnesium 3.2 mg/dL (1.8-2.4); NT-proBNP 3258 pg/mL (<300); Sodium 129 mmol/L (136-145)
[2020-08-16] MEDS: Bisoprolol 5 MG TAB 2.5 MG PO (08:54)
[2020-08-16] MEDS: Polyethylene Glycol 3350 17 GM PACKET PO (08:54)
[2020-08-16] MEDS: Acetaminophen 500 MG TAB 1000 MG PO ×3 (08:55→20:25)
[2020-08-16] MEDS: Apixaban 2.5 MG TAB PO ×2 (08:55→20:26)
[2020-08-16] MEDS: Budesonide/Formoterol 80/4.5 6.9 GM 60 PUFF INH IH ×2 (09:27→20:27)
--- NOTE | 2020-08-16 10:06 | CMDISCH_ITS ---
LACE Index Scoring Tool - Questions: Length of Stay (in days): 2 Acuity (Admit via E.D.?): Yes Comorbidities: Congestive Heart Failure E.D. Visits: 2 - Answers: Total Score: 9 Risk of Readmission: Low Risk Care Management Discharge Reason for Hospitalization: TIA Discharge Plan: Reta will return home when ready per MD. She will have new prescription for Eliquis, sent to [facility] in [place]. Reta will resume outpatient supports, follow up with her PCP and plan of care as prescribed and transport via private vehicle with family. Patient/Family Education Needs: Review discharge instructions, discuss Ask Me Three. Services Needed at Discharge: Homemaking Services (Resume; currently approved, no staffing available. )
--- NOTE | 2020-08-16 11:31 | NUR.NOTE ---
At 11 patient felt a brief instance of double vision. VS checked and within range, neuro checks appropriate, reported to [facility] Nursing Note:
--- NOTE | 2020-08-16 13:53 | PGE_ITS ---
Date of Service Date of service: 08/16/20 Time of Service: 13:53 Assessment and Plan Assessment and plan (1) TIA (transient ischemic attack): Status: Acute Assessment and plan: symptoms resolved MRI of brain pending. CTA of the neck did not demonstrate any stenosis over 50%. started on a DOAC d/t variable INR. started on Apixaban 2.5 mg bid. (2) Atrial fibrillation: Status: Chronic Assessment and plan: Variable rate control with borderline low blood pressure readings. switched to bisoprolol with good heart rate and blood pressure control Qualifiers: Atrial fibrillation type: persistent (not longstanding) Qualified Code(s): I48.19 - Other persistent atrial fibrillation (3) Cardiomyopathy: Status: Chronic Assessment and plan: Unfortunately we are unable to get an echocardiogram this weekend. We will arrange for formal follow-up echocardiogram upon discharge. Because of borderline low blood pressure readings losartan has been on hold and may need to reduce the dose. lasix placed on hold now with low sodium, recheck labs in am Qualifiers: Cardiomyopathy type: unspecified Qualified Code(s): I42.9 - C ardiomyopathy, unspecified (4) Chronic anticoagulation: Status: Acute Assessment and plan: changed to DOAC discussed with Dr Black Subjective Subjective Patient reports: no new complaints, tolerating liquids well, tolerating a regular diet, voiding w/o difficulty and afebrile Exam Narrative Exam Narrative: Elderly female sitting up in her chair in no acute distress. She is alert and oriented person place time circumstance. Lungs are clear to auscultation. Heart is irregularly irregular at a controlled rate with a soft systolic murmur over the apex no thrill or heave Abdomen soft and nontender Lower extremities without peripheral cyanosis or edema Objective Last Vital Signs Temp 36.6 C 08/16/20 11:37 Pulse 67 08/16/20 11:37 Resp 19 08/16/20 11:37 BP 127/81 08/16/20 11:37 Pulse Ox 94 08/16/20 11:37 Laboratory Results - last 24 hr 08/15/20 08/16/20 08/16/20 08:11 06:39 06:39 Sodium 129 L Potassium 4.0 Chloride 97 L Carbon Dioxide 28.9 Anion Gap 3.1 BUN 26 H D Creatinine 1.59 H Estimated GFR/1.73 m2 31.16 Glucose 103 Calcium 8.9 Magnesium 3.2 H NT-Pro-B Natriuret Pep 3258 H Triglycerides 144 Total Cholesterol 159 LDL Cholesterol, Calc 82 HDL Cholesterol 49 COVID-19 PCR Negative Nasopharyn COVID-19 PCR Not Applicable Ref Test Perform Site [facility]
--- NOTE | 2020-08-16 15:08 | DI.MRI_ITS ---
EXAM: MR BRAIN WO CLINICAL HISTORY: tia TECHNIQUE: Multiplanar multisequence MRI of the brain was performed. COMPARISON: No exams were available for comparison FINDINGS: There is moderate generalized cerebral atrophy. There are patchy areas of abnormal signal in periven tricular white matter bilaterally consistent with microvascular ischemic change. There is an area of diffusion restriction in the left parietal cortex, this corresponds to an area of decreased signal on ADC map and the findings are consistent with an area of acute cortical infarctio n. Susceptibility weighted imaging shows no evidence of associated hemorrhage. There is abnormal signal associated with the left parietal cortex T2 weighted and FLAIR images as wel l, consistent with edema at this site. No other significant signal abnormality is identified in the brain. The orbital and temporal bone structures appear intact as does the pituitary. There is normal flow void in the [place] vasculature. IMPRESSION: Cerebral atrophy and diffuse microvascular ischemic changes. Acute left parietal cortical bland infarction as described above. DATA REPOSITORY:
[2020-08-16] MEDS: Furosemide 20 MG TAB 10 MG PO (16:02)
--- NOTE | 2020-08-16 16:39 | NUR.NOTE ---
Nursing Note: Patient was able to have her MRI this afternoon, she is now back in room and is comfortable.
--- NOTE | 2020-08-16 16:52 | PHA.REVIEW ---
Pharmacy Admission Review - Admission Clinical Review (Last Reviewed 08/14/20 @ 17:53 by Adal Schoreder MD) Atrial fibrillation with rapid ventricular response (Acute) TIA (transient ischemic attack) (Acute) Supratherapeutic INR (Acute) Chronic anticoagulation (Acute) sulfamethoxazole Adverse Reaction (Mild, Unverified 05/29/20 14:47) NAUSEA trimethoprim Adverse Reaction (Mild, Unverified 05/29/20 14:47) NAUSEA MELISSA Inhibitors Adverse Reaction (Unknown, Unverified 05/29/20 14:47) RENAL INSUFFIENCIENCY benazepril Adverse Reaction (Unknown, Unverified 05/29/20 14:47) lovastatin Adverse Reaction (Unknown, Unverified 05/29/20 14:47) LIGHTHEADEDNESS methyldopa Adverse Reaction (Unknown, Unverified 05/29/20 14:47) simvastatin [From Zocor] Adverse Reaction (Unknown, Unverified 05/29/20 14:47) BODY ACHES W/ HIGHER DOSES Height 5 ft Weight 61.235 kg - Renal Dosing Renal Dosing: BUN 26 mg/dL (7-18) H D 08/16/20 06:39 Creatinine 1.59 mg/dL (0.55-1.02) H 08/16/20 06:39 Medications needing adjustments: Intervened (Crcl ~19.9 mL/min. Apixaban and bisoprolol doses renally adjusted.) - Anticoagulation Anticoagulation: Hgb 13.4 g/dL (11.2-15.7) 08/14/20 15:00 Hct 40.2 % (36.0-46.0) 08/14/20 15:00 Plt Count 219 10^3/uL (130-400) 08/14/20 15:00 INR 1.3 (0.9-1.1) H 08/15/20 06:20 Creatinine 1.59 mg/dL (0.55-1.02) H 08/16/20 06:39 DVT Prohphylaxis: N/A Therapeutic Anticoagulation: Reviewed Medications: Apixaban - Opiate Usage Evaluate Pain Scale/Pains Meds: N/A - Relevant Labs Sodium 129 mmol/L (136-145) L 08/16/20 06:39 Potassium 4.0 mmol/L (3.5-5.1) 08/16/20 06:39 Chloride 97 mmol/L (98-107) L 08/16/20 06:39 Magnesium 3.2 mg/dL (1.8-2.4) H 08/16/20 06:39 Electrolytes, C-Reactive P, ESR: Intervened (mag elevated this morning, PO replacement discontinued) - DM Control DM Control: Glucose 103 mg/dL (74-106) 08/16/20 06:39 Insulin Dosing: N/A - Heart Failure/MN Heart Failure/MN: Troponin I < 0.05 ng/mL (<0.06) 08/14/20 15:00 NT-Pro-B Natriuret Pep 3258 pg/mL (<300) H 08/16/20 06:39 EF%, MELISSA's, B-Blockers, Diuretics: Reviewed - BP Control BP Control: Blood Pressure 107/57 Blood Pressure 127/81 Blood Pressure 105/61 If elevated: N/A - Qtc Review If Elevated: Reviewed (QTc 467) - IV to PO Switch IV Medications: Reviewed - Home Meds Home Med List reviewed: Reviewed (Some duplicate meds (proair, albuterol) on home med list. Separate admin of levothyroxine from multivitamin and mag oxide.) Relevent Home Meds Not ordered & why?: atenolol (has bisoprolol ordered), bisacodyl (PRN), fluticasone/vilanterol(symbicort subbed for this), mag oxide (mag level was elevated), thiamine, vitamin [id number] acid, warfarin (has apixaban ordered), multivitamin - Current meds Current Medication Order Review: Reviewed - Comments Comments/Follow Ups: Watch BP, sodium, mag, SCr and for med changes (renal dose adjustments, resumption of losartan)
[2020-08-16] MEDS: Normal Saline Flush 10 ML SYR IVP (20:27)
[2020-08-17 03:15] VITALS: BP 117/66; PULSE 67; RESP 18; TEMP 36.7; O2SAT 99
[2020-08-17] MEDS: Levothyroxine 88 MCG TAB PO (05:52)
[2020-08-17 07:05] LABS: Abs Immature Grans 0.04 10^3/uL (0.0-0.06); Absolute Basophil Count 0.01 10^3/uL (0.0-0.2); Absolute Eosinophil Count 0.63 10^3/uL (0.0-0.7); Absolute Lymphocyte Count 1.23 10^3/uL (1.2-3.4); Absolute Monocyte Count 0.33 10^3/uL (0.1-0.8); Absolute Neutrophil Count 4.48 10^3/uL (1.2-6.7); Basophils % 0.1; Eosinophils % 9.4; HCT 37.9 % (36.0-46.0); HGB 12.4 g/dL (11.2-15.7); Immature Grans % 0.6; Lymphocytes % 18.3; MCH 33.2 pg (27.0-33.0); MCHC 32.7 % (32.0-36.0); MCV 101.6 fL (80-95); MPV 10.8 fL (8.0-11.0); Monocytes % 4.9; Neutrophils % 66.7; Nucleated RBC 0 %; Platelet Count 201 10^3/uL (130-400); RBC 3.73 10^6/uL (3.93-5.22); RDW-SD 52.1 fL; WBC 6.72 10^3/uL (4.4-10.8)
[2020-08-17 07:12] LABS: BUN 29 mg/dL (7-18); Calcium 8.9 mg/dL (8.5-10.1); Chloride 98 mmol/L (98-107); Estimated GFR 30.94 (mL/min/1.73m2); Glucose 105 mg/dL (74-106); Potassium 4.4 mmol/L (3.5-5.1); Sodium 133 mmol/L (136-145)
[2020-08-17 07:28] VITALS: BP 110/60; PULSE 67; RESP 18; TEMP 37.1; O2SAT 99
[2020-08-17 07:30] VITALS: PULSE 78
[2020-08-17] MEDS: Budesonide/Formoterol 80/4.5 6.9 GM 60 PUFF INH IH (07:57)
[2020-08-17] MEDS: Acetaminophen 500 MG TAB 1000 MG PO (08:14)
[2020-08-17] MEDS: Bisoprolol 5 MG TAB 2.5 MG PO (08:14)
[2020-08-17] MEDS: Furosemide 20 MG TAB 10 MG PO (08:15)
[2020-08-17] MEDS: Apixaban 2.5 MG TAB PO (08:15)
--- NOTE | 2020-08-17 11:04 | DSE_ITS ---
DS: Diagnosis Discharge Diagnosis (1) TIA (transient ischemic attack): Start date: 08/17/20 Start time: 11:05 Status: Acute Asessment and Plan: Symptoms resolved. MRI with cerebral atrophy and diffuse micorvascular ischemic changes Acute Left parietal cortical bland infarction CTA Neck-The common, internal, and external carotid arteries are within normal limits in the cervical region except for moderate atheromatous plaque of the proximal internal carotid arteries bilaterally with no evidence stenosis in excess of 50 percent luminal diameter. With no evidence of aneurysm or dissection. She will go home on eliquis, aspirin, holter and f/u with Dr. Alvarez (2) Atrial fibrillation: Start date: 08/17/20 Start time: 11:14 Status: Chronic Asessment and Plan: Variable rate control, therefore she is being placed on event recorder with borderline low blood pressures, she was switched to bisprolol with HR and BP control. (3) Cardiomyopathy: Start date: 08/17/20 Start time: 11:16 Status: Chronic Asessment and Plan: as above (4) Chronic anticoagulation: Start date: 08/17/20 Start time: 11:16 Status: Chronic Asessment and Plan: changed to DOAC above case discussed with Dr. Monte who is in agreement. Discharge Plan Disposition Patient Disposition: HOME Condition: Stable Discharge Details Reason For Visit: TIA Admit Date/Time: 08/16/20 15:14 Admit Provider: Adal Schroeder Attending Provider: Adal Schroeder Primary Care Provider: [facility] Hospital Course: 80 y.o female with pmh of Afib RVR, TIA, Supratherapeutic INR. Hypothyroidism, cardiomyopathy, vitamin d deficiency, chronic anticogulation that presented to [facility] ED on admission with sudden onset right arm feeling numb and tingly. No LUIS, visual changes or language disturbance. In the ED CTA revealed bilateral carotid plaque but no stenosis greater than 50%. INR 1.3 CT head negative. Mag 1.5, pulse in 130's. She was admitted to [facility] for further management. Over course of treatment her heart rate was variable and she was switched to bisprolol. Due to liable INR she was initiated on DOAC. She was unable to obtain echo on admission, there fore she will have an outpatient echo. She was having borderline low blood pressures that improved with bisprolol. MRI revealed acute left parietal cortical bland infarction. She was not placed on statin due to alleregies. Today she is feeling well, no side effects. She is being discharged home with event recorder, f/u echo, and f/u appt with Dr. Alvarez Home Meds and New Rx's Prescriptions: New Eliquis 2.5 mg Tablet 2.5 mg PO BID Qty: 14 RF: 0 bisoprolol fumarate 5 mg Tablet 2.5 mg PO DAILY Qty: 30 RF: 0 Continued furosemide 20 mg tablet 10 mg PO DAILY Qty: 45 RF: 4 losartan 50 mg tablet 50 mg PO DAILY Qty: 90 RF: 4 Women's Multivitamin Gummies 200 MCG tablet,chewable 200 mcg PO DAILY Qty: 150 RF: 6 thiamine mononitrate (vit B1) 100 MG tablet 100 mg PO DAILY RF: 0 PROVENTIL HFA 18 GM HFA.AER.AD 1 - 2 puff Inhalation [id number] PRNQty: 1 RF: 6 Breo Ellipta 100-25 mcg/dose blister with device 1 inh INHALATION DAILY Qty: 28 RF: 6 levothyroxine 88 mcg tablet 88 mcg PO DAILY Qty: 90 RF: 2 albuterol sulfate 90 mcg/actuation HFA aerosol inhaler 2 puff IH QID PRN (Reason: shortness of breath or wheezing) Qty: 18 RF: 6 vitamin Y94-oaptg acid 1,000-400 mcg Lozenge 1,000 heidi SUBLINGUAL DAILY RF: 0 acetaminophen [Mapap Extra Strength] 500 mg Tablet 1,000 mg PO TID Qty: 90 RF: 0 bisacodyl 10 mg Suppository 10 mg KS DAILY PRN PRN (Reason: Constipation) Qty: 5 RF: 0 polyethylene glycol 3350 [Miralax] 17 gram powder in packet 17 gm PO DAILY Qty: 10 RF: 0 Discontinued atenolol 100 mg tablet 100 - 150 mg PO BID Qty: 225 RF: 3 warfarin 2 mg tablet 2 mg PO DAILY Qty: 90 RF: 2 magnesium oxide 400 mg (241.3 mg magnesium) tablet 400 mg PO BID Qty: 60 RF: 6 Discharge Instructions Instructions: Transient Ischemic Attack (DC), A-fib (Atrial Fibrillation) (DC), Ischemic Stroke (DC) Additional Instructions: Follow up with PCP in 1 week Follow up with outpatient echo Follow up with Dr. Alvarez in 1-2 weeks Event recorder x 1 month Stand Alone Forms: Nursing Discharge Form Referrals: [facility] RADIOLOGY [Other] (Please call Wednesday to make a Follow up appointment with ECHO) Maria Fernanda Alvarez MD [ [facility] STAFF PHYSICIAN] - (please call Wednesday to make F/U appointment.) Activity:: Activity as Tolerated Equipment/Supplies:: No Equipment Needed Diet:: Low Sodium Discharge Orders Discharge Orders: Discharge Order (Routine); Ordered 08/17/20 Ordered By: Rekha Hall Other Ambulatory Orders: US echocardiogram stress (Routine) Location: None Selected Ordered By: Rekha Hall DS: Summary Status at Discharge Functional status at discharge: independent ambulation Overall status at discharge: patient is back to baseline Mental Status: mental status grossly normal Speech and Movement: speech and movement normal Mood: congruent mood Affect: normal affect Exam Narrative Exam Narrative: Elderly female laying in bed in no acute distress. She is alert and oriented person place time circumstance. Lungs are clear to auscultation. Heart is irregularly irregular at a controlled rate with a soft systolic murmur over the apex no thrill or heave Abdomen soft and nontender Lower extremities without peripheral cyanosis or edema Psych Mental Status: mental status grossly normal Speech and Movement: speech and movement normal Mood: congruent mood Affect: normal affect DS: Data Vitals/I&O Vitals and I&O: Vital Signs Temperature 37.1 C 08/17/20 07:28 Temperature Source Temporal Artery Scan 08/17/20 07:28 Pulse 67 08/17/20 07:28 Pulse Rhythm Irregular 08/17/20 09:52 Pulse 103 H 08/14/20 18:10 Respiratory Rate 18 08/17/20 07:28 Respiratory Effort Non-Labored 08/17/20 09:52 Respiratory Depth Normal 08/17/20 09:52 Respiratory Pattern Normal 08/17/20 09:52 Blood Pressure 110/60 08/17/20 07:28 Blood Pressure Mean 104 08/14/20 18:01 Blood Pressure Position Sitting 08/14/20 14:25 Pulse Oximetry 99 08/17/20 07:28 Oxygen Delivery Method Room Air 08/17/20 07:28 Oxygen Flow Rate 0 08/17/20 07:28 Pain Level 2 08/17/20 08:14 Comment 11/26/20 11:16 Intake & Output 08/16/20 08/16/20 08/17/20 11:59 23:59 11:59 Intake Total 240 / 790 550 / 790 250 / 250 Output Total 725 / 725 Balance 240 / 790 550 / 790 -475 / -475 Intake: IV Oral 240 / 780 540 / 780 250 / 250 Output: Urine 725 / 725 Other: Urine Color Yellow Light Marie Urine Appearance Clear Clear Clear Urine Odor None Stool Size Moderate Stool Characteristics Liquid Voiding Methods Toilet Toilet Data Completed and Pending Completed studies during hospitalization [Text1]: Exam(s) a RAD:XR chest 2V PA & lateral EXAM: XR CHEST 2V PA LATERAL CLINICAL HISTORY: R arm tingling, r/o acute disease TECHNIQUE: 2D digital imaging was performed. COMPARISON: CR PORTABLE AP CHEST, POST LINE from 09/27/2017 FINDINGS: The heart is mildly enlarged. The lungs are clear and well expanded. No pleural effusion seen. Mediastinal contours appear intact. IMPRESSION: Mild cardiomegaly. Otherwise normal chest. Exam(s) a CT:CT brain & neck CTA EXAM: CT BRAIN NECK CTA CLINICAL HISTORY: sudden R arm tingling, r/o acute cva. TECHNIQUE: Imaging Protocol: Axial CT angiography was performed with multi- slice acquisition and multi-planar and/or 3D reconstructions. CONTRAST MATERIAL: Intravenous: Omnipaque 350 Contrast volume:structured data in ml COMPARISON: CT CT PELVIC W from 10/20/2019 FINDINGS: CT angiography of the cervical cranial region was performed according to the usual protocol with intravenous infusion of 100 cc of Omnipaque 350.. Initial noncontrast scanning of the head shows moderate to severe cerebral atrophy and is otherwise unremarkable. Visualized lung apices are clear. Visualized portions of thoracic aorta and pulmonary arterial circulation are unremarkable. There is no evidence of a cervical mass or adenopathy. The tracheal laryngeal structures appear intact. The common, internal, and external carotid arteries are within normal limits in the cervical region except for moderate atheromatous plaque of the proximal internal carotid arteries bilaterally with no evidence stenosis in excess of 50 percent luminal diameter. With no evidence of aneurysm or dissection. The vertebral arteries are unremarkable in appearance in the cervical region with no evidence of aneurysm, stenosis, or dissection. Intracranial portions of the internal carotid arteries show moderate calcific atheromatous plaque in their cavernous portions with no evidence of a stenosis in excess of 50 percent of the luminal diameter. Intracranial vertebral arteries and basilar artery appear normal with no evidence of aneurysm, stenosis or dissection. No aneurysm identified in the region of the [id number]. The anterior, middle, and posterior cerebral arteries and major branches appear intact with no evidence of aneurysm, stenosis, or dissection. No enhancing brain lesion identified. IMPRESSION: No evidence of a hemodynamically significant stenosis of the cervical or intracranial major vessels as described above. Exam(s) a MRI:MR brain wo EXAM: MR BRAIN WO CLINICAL HISTORY: tia TECHNIQUE: Multiplanar multisequence MRI of the brain was performed. COMPARISON: No exams were available for comparison FINDINGS: There is moderate generalized cerebral atrophy. There are patchy areas of abnormal signal in periventricular white matter bilaterally consistent with microvascular ischemic change. There is an area of diffusion restriction in the left parietal cortex, this corresponds to an area of decreased signal on ADC map and the findings are consistent with an area of acute cortical infarction. Susceptibility weighted imaging shows no evidence of associated hemorrhage. There is abnormal signal associated with the left parietal cortex T2 weighted and FLAIR images as well, consistent with edema at this site. No other significant signal abnormality is identified in the brain. The orbital and temporal bone structures appear intact as does the pituitary. There is normal flow void in the [place] vasculature. IMPRESSION: Cerebral atrophy and diffuse microvascular ischemic changes. Acute left parietal cortical bland infarction as described above. Labs on day of discharge: Labs from last 24 hours 08/17/20 08/17/20 06:22 06:22 WBC 6.72 RBC 3.73 L Hgb 12.4 Hct 37.9 MCV 101.6 H MCH 33.2 H MCHC 32.7 RDW 14.0 Plt Count 201 MPV 10.8 Immature Gran % 0.6 Neutrophils % 66.7 Lymphocytes % 18.3 Monocytes % 4.9 Eosinophils % 9.4 Basophils % 0.1 Nucleated RBC % 0 Absolute Neutrophils 4.48 Absolute Lymphocytes 1.23 Absolute Monocytes 0.33 Absolute Eosinophils 0.63 Absolute Basophils 0.01 Sodium 133 L Potassium 4.4 Chloride 98 Carbon Dioxide 28.0 Anion Gap 7.0 BUN 29 H Creatinine 1.60 H Estimated GFR/1.73 m2 30.94 Glucose 105 Calcium 8.9 [facility] Medical History Acute on chronic systolic CHF (congestive heart failure) Atrial fibrillation Cardioversion and Amiodarone in 2012: successfull but reverted 1 week later- amiodarone d/c /ON COUMADIN Cardiomyopathy unclear etiology/ EF as low as 25% in 2011-back up around 50% post a.fib. rate regulated and post infection/poss. A.Fib. related vs etoh Closed fracture of left femur (08/22/17) left periprosthetic femur fracture post fall- treated [facility] (open reduction/int.fixation) Closed pelvic fracture Essential hypertension (06/20/13) Hyperlipidemia Hyponatremia (05/06/16) [facility] Nephrology : pb tubular nephron reabsorption; (pager [phone]) Hypothyroidism Pneumonia Polyp of colon Sensorineural hearing loss, bilateral (02/05/14) Surgical History Bilateral salpingectomy with oophorectomy Debridement, Soft Tissue (09/29/17) IRRIGATION AND DEBRIDEMENT LEFT HIP INCISION--PLACEMENT PF LANCE DRAIN ASPIRATION LEFT TKA Status post open reduction with internal fixation of fracture Total replacement of hip (07/08/11) LEFT Family History Mother , AGE 92 No problems noted. Father , AGE 92 Stroke Sister , AGE 93 No problems noted. Sister , AGE 89 No problems noted. Brother , AGE 90 Lung cancer Heart disease Brother , AGE 90 Heart disease Bone cancer Son Alcohol abuse Son , AT No problems noted. Son Alcohol abuse Daughter No problems noted. Daughter No problems noted. Daughter No problems noted. Maternal Grandfather Alcohol abuse Paternal Grandfather , age 100 No problems noted. Maternal Grandmother , age 82 No problems noted. Paternal Grandmother , age 100 No problems noted. Social History Smoking/Tobacco Use Status: Never Second Hand Exposure: Yes Smoking risk assessment performed?: Yes Alcohol Intake: current Alcohol Intake frequency: a few times a week Alcohol type: hard liquor Drug use: Never Substance use type: does not use Caregiver/Support person: No Household members: none Housing: apartment Communication Needs: Deaf and Corrective Lenses Do you need help understanding health information?: Rarely Pets and animals: Yes Pets and animals: cat(s) Sexually active: No Do you think of yourself as: straight/heterosexual Current gender identity: female What is your relationship status?: How often do you talk on the phone with friends or family?: three or more times per week How often do you get together with friends or relatives?: three or more times per week How often do you attend uatsdin or church services?: 1-3 times per year Do you belong to any clubs or organized social groups?: yes Panel score (0-1 are the most socially isolated patients): 2 Duration: 45-60 minutes/day Frequency: 1-2 times per week Diane/Hindu: Faith Special diane needs: No Seatbelt use: always Drive intox or ride w/intox 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 Do you feel safe at home: Yes Do you feel safe in your relationship?: Yes
[2020-08-17 11:06] VITALS: PULSE 78
--- NOTE | 2020-08-17 20:05 | PDOC.CMDIS ---
- If Service Date Differs Date of service: 08/17/20 Time of Service: 20:05 LACE Index Scoring Tool - Questions: Length of Stay (in days): 2 Acuity (Admit via E.D.?): Yes Comorbidities: Previous M.I. E.D. Visits: 2 - Answers: Total Score: 8 Risk of Readmission: Low Risk Care Management Discharge Reason for Hospitalization: TIA Discharge Plan: Reta will return home with no additional services at this time. REZA called her pharmacy as she will have a new prescription for Eliquis, which her insurance will cover with a $ 0.91 copay. She will be driven home via private vehicle by family. She will follow up with her PCP and discharge plan of care. Patient/Family Education Needs: Review discharge instructions regarding activity levels and medications, discussion of self care needs including ask me three and goals of care.
== END 2020-08-17 12:20 | disposition home or self-care (01) | DRG 69 ==
LOC: ER 18:05 → MS 18:54
PROVIDERS: Internal Medicine; Nurse Practitioner Acute Care; Admitting Provider General Practice; Emergency Provider Physician Assistant; PCP Family Medicine; Visit Provider General Practice
DX: G45.9 Transient cerebral ischemic attack, unspecified (principal); I42.9 Cardiomyopathy, unspecified; I48.19 Other persistent atrial fibrillation; E87.1 Hypo-osmolality and hyponatremia; Z79.01 Long term (current) use of anticoagulants; I10 Essential (primary) hypertension; E78.5 Hyperlipidemia, unspecified; E03.9 Hypothyroidism, unspecified; Z96.642 Presence of left artificial hip joint
CPT/HCPCS: 36415; 36416; 70496; 70498; 80048; 80053; 80061; 82962; 93005; 93270; 94640; 96365; 96375; 99222; 99233; 99239; 99285; U0003; 70551; 71046; 83735; 83880; 84443; 84484; 85025; 85610; 85730; 93010; 99219; G0378; J3475; J3490

== ENCOUNTER → 2020-08-27 09:54 | Outpatient (BNVA) | payer MEDICARE, MEDICAID, SELFPAY ==
--- NOTE | 2020-09-24 12:30 | W.CARDEVENT ---
Date of service: 09/24/20 Time of Service: 12:30 Cardiac Event Recorder Referring Provider:: reginaldo nixon Indications:: CVA Cardiac Event Note: This is a 30-day monitor ordered for indication of CVA. ?The patient was normal sinus rhythm for the majority of the recording with an average heart rate 51 bpm. ?There was one episode of atrial fibrillation which lasted a total of 6 hours. ?There was 2 episodes of nonsustained ventricular tachycardia with the longest lasting 10 beats. ?There were no pauses greater than 3 seconds and no evidence of high degree heart block.
== END ==
PROVIDERS: PCP Family Medicine; Referring Provider Family Medicine; Visit Provider Psychiatry & Neurology Neurology
DX: I63.9 Cerebral infarction, unspecified (principal); I48.19 Other persistent atrial fibrillation; R79.1 Abnormal coagulation profile; Z79.01 Long term (current) use of anticoagulants; I10 Essential (primary) hypertension
CPT/HCPCS: 99204; 99215

== ENCOUNTER 2020-10-01 02:24 | Outpatient (CLI) | payer MEDICARE, MEDICAID, SELFPAY ==
[2020-10-01 15:11] LABS: Hemoglobin A1C 5.2 % (<5.7)
[2020-10-01 15:25] LABS: Anion Gap 5.5 mmol/L (3-11); BUN 15 mg/dL (7-18); CO2 32.5 mmol/L (21.0-32.0); CREATININE 1.15 mg/dL (0.55-1.02); Calcium 9.2 mg/dL (8.5-10.1); Chloride 101 mmol/L (98-107); Estimated GFR 45.29 (mL/min/1.73m2); Glucose 99 mg/dL (74-106); Potassium 3.9 mmol/L (3.5-5.1); Sodium 139 mmol/L (136-145)
== END 2020-10-01 02:44 ==
PROVIDERS: PCP Family Medicine; Visit Provider Psychiatry & Neurology Neurology
DX: R73.9 Hyperglycemia, unspecified (principal); G62.9 Polyneuropathy, unspecified; I63.9 Cerebral infarction, unspecified
CPT/HCPCS: 36415; 80048; 83036

== ENCOUNTER 2021-05-08 01:16 | Emergency (ER) | payer MEDICARE, MEDICAID, SELFPAY ==
[2021-05-08] VITALS (30 sets, daily range): BP systolic 119–171; BP diastolic 58–94; PULSE 87–131; RESP 11–24; TEMP 36.5–36.6; O2SAT 95–100
--- NOTE | 2021-05-08 01:00 | RT.EKG_ITS ---
APPROVED REPORT Exam: Resting ECG Reason for Exam: Dizziness Patient Location: E HR:118 bpm ECG Measurements Heart Rate 118 AXIS RI [id number] P [id number] QRSd 84 QRS 62 QT 324 T 4 QTc 454 Conclusion Atrial fibrillation...? atrial activity Low voltage, extremity leads...all extremity leads <0.5mV Physician: Rate 118, atrial fibrillation, inverted T waves in V1 and lead III, no significant ST elev ation or depression. Previous T wave inversions are noted in EKG from 08/14/2020. No STEMI. No tatum nges
--- NOTE | 2021-05-08 01:15 | DI.CT_ITS ---
Exam(s) CT HEAD WO EXAM: CT HEAD WO CLINICAL HISTORY: dizzy, afib, anticoagulated, r/o bleed/stroke. TECHNIQUE: Imaging Protocol: Axial computed tomography images with coronal and sagittal reformatted images were created and reviewed COMPARISON: CT CT BRAIN NECK CTA from 08/14/2020 MR MR BRAIN WO from 08/16/2020 MR MR BRAIN WO from 08/16/2020 FINDINGS: No skull fractures. Lower most image this study again reveals a density in the posterior aspect of the right maxillary sinus which has the appearance of a tooth. No other significant paranasal sinus findings. Mastoid air cells are clear. There is no evidence of acute intracranial hemorrhage, new mass effect, or shift of midline structure s. No extra-axial fluid collections. The amount of involutional change is consistent with this misbah ent's age in the size of the ventricles are commensurate with this size of the overlying cortical sul ci. Again noted is an unchanged 7 by 6 millimeter left paracentral dural based density just above the ten torium the left side, unchanged most probably a small meningioma. IMPRESSION: No new intracranial findings. Small dural-based 7 x 6 probable meningioma posterior left side as pratik cribed above is a unchanged. No obvious new infarction or hemorrhage although please note that the p rior infarction with only evident with MRI imaging. If clinically indicated follow-up MRI can be per formed. RADIATION DOSE DELIVERED: 594.18mGy.cm Total DLP DATA REPOSITORY: All CT scans at this facility are submitted to the National Radiology Data Registry (NRDR) Dose Index Registry (DIR) with the [employer] ([employer]). RADIATION OPTIMIZATION: All CT scans at this facility use at least one of these dose optimization te chniques: automated exposure control; mA and/or kV adjustment per patient size (includes targeted exa ms where dose is matched to clinical indication); or iterative reconstruction.
--- NOTE | 2021-05-08 01:29 | ED.GENADUL_ITS ---
Discharge Plan Disposition Patient Disposition: HOME Condition: Good Discharge Details Clinical Impression: Episodic lightheadedness Primary Care Provider: Mary Bee ED Provider: Josh Jackson Home Meds and New Rx's Prescriptions: Continued Women's Multivitamin Gummies 200 MCG tablet,chewable 200 mcg PO DAILY Qty: 150 RF: 6 thiamine mononitrate (vit B1) 100 MG tablet 100 mg PO DAILY RF: 0 PROVENTIL HFA 18 GM HFA.AER.AD 1 - 2 puff Inhalation Q4T-[id number] PRNQty: 1 RF: 6 losartan 50 mg tablet 50 mg PO DAILY Qty: 90 RF: 4 furosemide 20 mg tablet 10 mg PO DAILY Qty: 45 RF: 4 levothyroxine 88 mcg tablet 88 mcg PO DAILY Qty: 90 RF: 2 albuterol sulfate 90 mcg/actuation HFA aerosol inhaler 2 puff IH QID PRN (Reason: shortness of breath or wheezing) Qty: 18 RF: 6 Breo Ellipta 100-25 mcg/dose blister with device 1 inh INHALATION DAILY Qty: 28 RF: 6 Xarelto 15 mg tablet 15 mg PO DAILY Qty: 30 RF: 3 bisoprolol fumarate 5 mg tablet 5 mg PO DAILY Qty: 90 RF: 2 vitamin I74-tfkgk acid 1,000-400 mcg Lozenge 1,000 heidi SUBLINGUAL DAILY RF: 0 acetaminophen [Mapap Extra Strength] 500 mg Tablet 1,000 mg PO TID Qty: 90 RF: 0 bisacodyl 10 mg Suppository 10 mg TX DAILY PRN PRN (Reason: Constipation) Qty: 5 RF: 0 Discharge Instructions Instructions: Lightheadedness (ED) Additional Instructions: At this time your work-up is very reassuring. The CAT scan of your head shows no evidence of stroke. Your laboratory work-up is reassuring. Your EKG and troponin showed no signs of heart attack. I suspect that a component of your lightheadedness with mild dehydration. Please make sure you're drinking plenty fluids throughout the day. If you notice any worsening of your symptoms, or any new symptoms such as vomiting, diarrhea, fever, chills, shortness of breath, chest pain, numbness, weakness, or fainting , please return immediately to the emergency department for reevaluation. Please follow up with your primary care provider as soon as possible for reassessment and reevaluation. As always, it was a pleasure participating in your medical care today. Referrals: Mary Bee MD [Primary Care Provider] - Medical Decision Making This is an 81-year-old female with a past medical history of stroke/TIA, atrial fibrillation on rivaroxaban and bisoprolol, hypertension, high cholesterol, hypothyroidism, who presents today for evaluation of lightheadedness, and weakness. Patient stated that for the last week she has felt somewhat fatigued and has had general malaise, this evening she was sitting watching TV when she suddenly felt the room was spinning, this lasted just a few seconds and then resolved on its own. Shortly thereafter she felt notably weak and could not get up to stand with her walker. She denies any chest pain, shortness of breath, headache, neck pain, fever or chills. She has had her Covid vaccine. She denies any tearing or ripping sensation in her chest, she denies any recent weight gain or weight loss. She has not missed any doses of her medication. No other complaints at this time. No other modifying factors. Exam demonstrates a well-appearing female, in no nystagmus, no focal neurologic deficits. No evidence of trauma. Aside for feeling slightly lightheaded at this time the patient otherwise feels well. Heart rate is elevated, EKG shows A. fib, we'll gently rehydrate, evaluate for electrolyte abnormalities, get a CT scan of the head to look for signs of large stroke or bleed, evaluate for signs of heart strain, get a chest x-ray for further evaluation of the minor crackle heard, monitor closely and reassess. 3 AM Laboratory work-up is returned, vital signs have normalized, patient's heart rate has returned to the 90s after 500 cc bolus. Laboratory work-up shows no white count bandemia or left shift. Sodium slightly low at 127, likely corrected with 500 cc bolus of normal saline. Renal function stable, troponin normal. proBNP stable at baseline at 3000. No change. TSH slightly elevated at 4.2, free T4 also slightly elevated at 1.7, this is unlikely to be the cause of her mild weakness. Urinalysis shows 10-20 WBCs however the setting of moderate epithelial cells. Symptoms appearing consistent with UTI. We will hold off on treatment, but will send for culture. After fluid bolus we did get the patient up again she is feeling much better. She is able to get up without feeling any significant dizziness or lightheadedness. She is able to ambulate well with minimal assistance. She does use a walker normally at home. Repeat neurologic exam shows no focal neurologic deficits. I suspect the patient symptoms may have been secondary to mild dehydration, CT scan of the head is negative for acute process per virtual radiology as is the chest x-ray. Symptoms at this time appear inconsistent with stroke, severe life-threatening etiology. With patient demonstrating good ambulatory status, no focal neurologic deficits, and resolution of her symptoms after rehydration I do feel that she can go home. We will contact the patient's son, discharged home. Discussed red flags which to return. I have extensively reviewed the treatment plan and discharge instructions with the patient. I have addressed all patient concerns at this time. The patient was made aware of what symptoms to monitor for that would warrant a return to the emergency department. Discussed the plan with the patient, they demonstrate verbal understanding and agreement with our assessment and plan at this time. The documentation in this chart was dictated using Fundation dictation software. Please excuse any dictation errors. EKG 1: 20 Rate 118, atrial fibrillation, inverted T waves in V1 and lead III, no significant ST elevation or depression. Previous T wave inversions are noted in EKG from 08/14/2020. No STEMI. No changes. FINDINGS: Lungs: Mild chronic interstitial prominence. No consolidation. Pleural spaces: No pleural effusion. No pneumothorax. Heart/Mediastinum: Grossly stable. Bones/joints: Grossly stable. IMPRESSION: No acute findings. Thank you for allowing us to participate in the care of your patient. Dictated and Authenticated by: Ion Erickson MD 05/08/2021 2:06 AM Eastern Time ([place] & [place]) FINDINGS: Brain: Chronic left parietal infarction Mild volume loss No hemorrhage. Mild white matter disease. Cerebral ventricles: No ventriculomegaly. Paranasal sinuses: Visualized sinuses are unremarkable. No fluid levels. Mastoid air cells: Visualized mastoid air cells are well aerated. Bones/joints: Unremarkable. No acute fracture. Soft tissues: Unremarkable. IMPRESSION: No acute intracranial hemorrhage observed Chronic left parietal infarction in the region of the previously noted infarction on prior MRI Thank you for allowing us to participate in the care of your patient. HPI General Date/Time Provider Initiated Documentation: 05/08/21 01:25 . HPI Narrative: This is an 81-year-old female with a past medical history of stroke/TIA, atrial fibrillation on rivaroxaban and bisoprolol, hypertension, high cholesterol, hypothyroidism, who presents today for evaluation of l ightheadedness, and weakness. Patient stated that for the last week she has felt somewhat fatigued and has had general malaise, this evening she was sitting watching TV when she suddenly felt the room was spinning, this lasted just a few seconds and then resolved on its own. Shortly thereafter she felt notably weak and could not get up to stand with her walker. She denies any chest pain, shortness of breath, headache, neck pain, fever or chills. She has had her Covid vaccine. She denies any tearing or ripping sensation in her chest, she denies any recent weight gain or weight loss. She has not missed any doses of her medication. No other complaints at this time. No other modifying factors. Related Data Home Medications Medication Instructions Recorded Confirmed Women's Multivitamin Gummies 200 mcg PO DAILY #150 tab.chew 06/01/16 05/08/21 thiamine mononitrate (vit B1) 100 mg PO DAILY 11/24/17 05/08/21 vitamin O90-dgyts acid 1,000 heidi SUBLINGUAL DAILY 10/20/19 05/08/21 acetaminophen [Mapap Extra 1,000 mg PO TID #90 tab 10/23/19 05/08/21 Strength] bisacodyl 10 mg TX DAILY PRN PRN #5 ea 10/23/19 05/08/21 furosemide 20 mg tablet 10 mg PO DAILY #45 tab 09/03/20 05/08/21 losartan 50 mg tablet 50 mg PO DAILY #90 tab-cap 09/03/20 05/08/21 levothyroxine 88 mcg tablet 88 mcg PO DAILY #90 tab 11/25/20 05/08/21 albuterol sulfate 90 mcg/actuation 2 puff IH QID PRN #18 gm 03/03/21 05/08/21 aerosol inhaler fluticasone furoate 100 1 inh INHALATION DAILY #28 each 04/04/21 05/08/21 mcg-vilanterol 25 mcg/dose inhalation powder rivaroxaban 15 mg tablet 15 mg PO DAILY #30 tab 04/04/21 05/08/21 bisoprolol fumarate 5 mg tablet 5 mg PO DAILY #90 tab 05/05/21 05/08/21 Previous Rx's Medication Instructions Recorded acetaminophen [Mapap Extra 1,000 mg PO TID #90 tab 10/23/19 Strength] bisacodyl 10 mg TX DAILY PRN PRN #5 ea 10/23/19 furosemide 20 mg tablet 10 mg PO DAILY #45 tab 09/03/20 losartan 50 mg tablet 50 mg PO DAILY #90 tab-cap 09/03/20 levothyroxine 88 mcg tablet 88 mcg PO DAILY #90 tab 11/25/20 albuterol sulfate 90 mcg/actuation 2 puff IH QID PRN #18 gm 03/03/21 aerosol inhaler fluticasone furoate 100 1 inh INHALATION DAILY #28 each 04/04/21 mcg-vilanterol 25 mcg/dose inhalation powder rivaroxaban 15 mg tablet 15 mg PO DAILY #30 tab 04/04/21 bisoprolol fumarate 5 mg tablet 5 mg PO DAILY #90 tab 05/05/21 Allergies Allergy/AdvReac Type Severity Reaction Status Date / Time sulfamethoxazole AdvReac Mild NAUSEA Verified 05/08/21 01:40 trimethoprim AdvReac Mild NAUSEA Verified 05/08/21 01:40 MELISSA Inhibitors AdvReac Unknown RENAL Verified 05/08/21 01:40 INSUFFIENCIENCY benazepril AdvReac Unknown Verified 05/08/21 01:40 lovastatin AdvReac Unknown LIGHTHEADED Unverified 05/08/21 01:40 NESS methyldopa AdvReac Unknown Unverified 05/08/21 01:40 simvastatin [From Zocor] AdvReac Unknown BODY ACHES Unverified 05/08/21 01:40 W/ HIGHER DOSES General Stated Complaint: Dizzy/Sync ERNESTO: 2 Review of Systems All systems reviewed & are unremarkable except as noted in HPI and below PFSH Medical History Acute on chronic systolic CHF (congestive heart failure) Atrial fibrillation Cardioversion and Amiodarone in 2012: successfull but reverted 1 week later- amiodarone d/c /ON COUMADIN Cardiomyopathy unclear etiology/ EF as low as 25% in 2012-back up around 50% post a.fib. rate regulated and post infection/poss. A.Fib. related vs etoh Closed fracture of left femur (08/22/17) left periprosthetic femur fracture post fall- [place] [facility] [place] Closed pelvic fracture Essential hypertension (06/20/13) Hyperlipidemia [place]onatremia [place]05/06/16[place] [facility] [place] : pb tubular nephron reabsorption; (pager [phone]) Hypothyroidism Pneumonia Polyp of colon Sensorineural hearing loss, bilateral (02/05/14) Surgical History Bilateral salpingectomy with oophorectomy Debridement, Soft Tissue (09/29/17) IRRIGATION AND DEBRIDEMENT LEFT HIP INCISION--PLACEMENT PF LANCE DRAIN ASPIRATION LEFT TKA Status post open reduction with internal fixation of fracture Total replacement of hip (07/08/11) LEFT Family History Mother , AGE 92 No problems noted. Father , AGE 92 Stroke Sister , AGE 93 No problems noted. Sister , AGE 89 No problems noted. Brother , AGE 90 Lung cancer Heart disease Brother , AGE 90 Heart disease Bone cancer Son Alcohol abuse Son , AT No problems noted. Son Alcohol abuse Daughter No problems noted. Daughter No problems noted. Daughter No problems noted. Maternal Grandfather Alcohol abuse Paternal Grandfather , age 100 No problems noted. Maternal Grandmother , age 82 No problems noted. Paternal Grandmother , age 100 No problems noted. Social History Smoking/Tobacco Use Status: Never Smoking risk assessment performed?: Yes Alcohol Intake: current Alcohol Intake frequency: a few times a week Alcohol type: hard liquor Drug use: Never Caregiver/Support person: No Household members: none Communication Needs: Deaf and Corrective Lenses Do you need help understanding health information?: Often Pets and animals: No Sexually active: No What is your relationship status?: Do you belong to any clubs or organized social groups?: yes Panel score (0-1 are the most socially isolated patients): 1 Diane/Religious: Caodaism Seatbelt use: always Drive intox or ride w/intox sales warehouse driver: No Do you feel safe at home: Yes Do you feel safe in your relationship?: Yes Victim of physical abuse: No Victim of emotional abuse: Yes Victim of sexual abuse: No Would you like helpful sources: No Exam Narrative Exam Narrative: 1.Const: Well-nourished, Well-developed, appearing stated age 2.Eyes: PERRL, no conjunctival injection, and symmetrical lids. 3.ENT: Atraumatic external nose and ears. Moist MM. Neck: Symmetric, trachea midline, No thyromegaly. Poor dentition 4.CVS: +S1/S2, No murmurs or gallops. Peripheral pulses 2+ and equal in all extremities. Brisk capillary refill in all extremities. 5.RESP: Unlabored respiratory effort. Clear to auscultation bilaterally except for minimal crackle in the left lower lung field. No wheezes rales or rhonchi 6.GI: Soft, Nontender/Nondistended, No hepatosplenomegaly. No guarding or rebound. 7.MSK: Normocephalic/Atraumatic, Extremities w/o deformity or ttp No cyanosis or clubbing, Normal movement of all extremities. No pitting edema in the lower extremities. 8.Skin: Warm, Dry. No rashes or lesions. 9.Neuro: feed research aide II-XII grossly intact. Sensation grossly intact, no focal neurologic deficits. All 6 cardinal planes of vision are fully intact. No evidence of rotatory or vertical nystagmus. The patient demonstrated a normal [id number], good dexterity. There was no evidence of dysdiadochokinesia. Sensation was intact bilaterally as well as muscle strength bilaterally for all extremities. Patient was able to verbalize butter cup with no slurring, or miss pronunciation. 10.Psych: (AAO) x3. Appropriate mood and affect Course Vital Signs Vital signs: Vital Signs Temperature 36.5 C 05/08/21 01:16 Pulse 126 H 05/08/21 01:16 Respiratory Rate 24 05/08/21 01:16 Blood Pressure 171/94 H 05/08/21 01:16 Pulse Oximetry 98 05/08/21 01:16 Temperature 36.5 C 05/08/21 01:16 Temperature Source Temporal Artery Scan 05/08/21 01:16 Pulse 126 H 05/08/21 01:16 Respiratory Rate 24 05/08/21 01:16 Respiratory Effort Non-Labored 05/08/21 01:26 Respiratory Depth Normal 05/08/21 01:26 Respiratory Pattern Normal 05/08/21 01:26 Blood Pressure 171/94 H 05/08/21 01:16 Blood Pressure Position Sitting 05/08/21 01:16 Pulse Oximetry 98 05/08/21 01:16 Oxygen Delivery Method Room Air 05/08/21 01:16 Oxygen Flow Rate 0 05/08/21 01:16 Pain Level 0 05/08/21 01:16
[2021-05-08 01:37] LABS: Abs Immature Grans 0.05 10^3/uL (0.0-0.06); Absolute Basophil Count 0.04 10^3/uL (0.0-0.2); Absolute Eosinophil Count 0.32 10^3/uL (0.0-0.7); Absolute Monocyte Count 0.71 10^3/uL (0.1-0.8); Absolute Neutrophil Count 6.62 10^3/uL (1.2-6.7); Basophils % 0.4; Eosinophils % 3.3; HGB 13.6 g/dL (11.2-15.7); Immature Grans % 0.5; Lymphocytes % 21.3; MCH 33.5 pg (27.0-33.0); MCV 98.5 fL (80-95); MPV 10.7 fL (8.0-11.0); Monocytes % 7.2; Neutrophils % 67.3; Nucleated RBC 0 %; Platelet Count 212 10^3/uL (130-400); RBC 4.06 10^6/uL (3.93-5.22); RDW 12.3 % (11.7-14.6); RDW-SD 44.8 fL; WBC 9.84 10^3/uL (4.4-10.8)
--- NOTE | 2021-05-08 01:40 | NUR.NOTE ---
To Radiology per cart with technicianNursing Note:
[2021-05-08 01:46] LABS: Bilirubin Negative (Negative); Blood Trace-intact (Negative); Clarity Clear (Clear); Glucose Negative (Negative); Ketones Negative (Negative); Leukocyte Esterase Trace (Negative); Nitrite Negative (Negative); Specific Gravity 1.015 (1.005-1.025); Urobilinogen 0.2 EU/dL (Up TO 0.2); pH 5.5 (5-8)
--- NOTE | 2021-05-08 01:53 | DI.RAD_ITS ---
Exam(s) XR CHEST 2V PA LATERAL EXAM: XR CHEST 2V PA LATERAL CLINICAL HISTORY: cough, mild crackle in left lower lung field. TECHNIQUE: 2D digital imaging was performed. COMPARISON: No exams were available for comparison FINDINGS: Heart size is upper normal. The mediastinum is not widened. Lungs are clear. No infiltrates nor pleural effusions. IMPRESSION: No acute pulmonary findings. DATA REPOSITORY: RADIATION DOSE DELIVERED:
[2021-05-08] MEDS: Normal Saline 500 ML IV (01:56)
[2021-05-08 01:58] LABS: Bacteria Few HPF (Negative); C & S Indicated? No/Sq. Contamination; Casts Negative LPF (Negative); Crystals Negative HPF (Negative); Epithelial Cells Moderate HPF (Negative); Mucus Negative (Negative)
[2021-05-08 02:00] LABS: ALT 16 U/L (14-59); AST 21 U/L (15-37); Albumin 3.4 g/dL (3.4-5.0); Alkaline Phosphatase 88 U/L (46-116); BUN 13 mg/dL (7-18); Bilirubin, Total 0.9 mg/dL (0.2-1.0); CREATININE 1.1 mg/dL (0.55-1.02); Calcium 8.7 mg/dL (8.5-10.1); Chloride 89 mmol/L (98-107); Estimated GFR 47.55 (mL/min/1.73m2); Glucose 106 mg/dL (74-106); NT-proBNP 3057 pg/mL (<300); Potassium 3.5 mmol/L (3.5-5.1); Sodium 127 mmol/L (136-145); TSH (W/Ref FT4) 4.21 uIU/mL (0.36-3.74); Total Protein 7.7 g/dL (6.4-8.2)
[2021-05-08 02:03] LABS: Troponin I < 0.05 ng/mL (<0.06)
--- NOTE | 2021-05-08 02:05 | DI.VRAD_ITS ---
PROCEDURE INFORMATION: Exam: CT Head Without Contrast Exam date and time: 05/08/2021 1:28 AM Age: 81 years old Clinical indication: Other: Dizzy, afib, anticoagulated, R/O bleed/stroke TECHNIQUE: Imaging protocol: Computed tomography of the head without contrast. Radiation optimization: All CT scans at this facility use at least one of these dose optimization techniques: automated exposure control; mA and/or kV adjustment per patient size (includes targeted exams where dose is matched to clinical indication); or iterative reconstruction. COMPARISON: MR BRAIN WO 08/16/2020 2:43 PM FINDINGS: Brain: Chronic left parietal infarction Mild volume loss No hemorrhage. Mild white matter disease. Cerebral ventricles: No ventriculomegaly. Paranasal sinuses: Visualized sinuses are unremarkable. No fluid levels. Mastoid air cells: Visualized mastoid air cells are well aerated. Bones/joints: Unremarkable. No acute fracture. Soft tissues: Unremarkable. IMPRESSION: No acute intracranial hemorrhage observed Chronic left parietal infarction in the region of the previously noted infarction on prior MRI Dictated and Authenticated by: Ion Erickson MD. Ordering:PANKAJ Moreno MD
--- NOTE | 2021-05-08 02:06 | DI.VRAD_ITS ---
PROCEDURE INFORMATION: Exam: XR Chest Exam date and time: 05/08/2021 1:30 AM Age: 81 years old Clinical indication: Other: Cough, mild crackle in left lower lung field TECHNIQUE: Imaging protocol: XR of the chest. Views: 2 views. COMPARISON: CR XR CHEST 2V PA LATERAL 08/14/2020 3:24 PM FINDINGS: Lungs: Mild chronic interstitial prominence. No consolidation. Pleural spaces: No pleural effusion. No pneumothorax. Heart/Mediastinum: Grossly stable. Bones/joints: Grossly stable. IMPRESSION: No acute findings. Dictated and Authenticated by: Ion Erickson MD. Ordering:PANKAJ Moreno MD
[2021-05-08 02:20] LABS: FREE T4 1.71 ng/dL (0.76-1.46)
[2021-05-08 02:26] LABS: COVID-19 PCR Negative (Negative)
== END 2021-05-08 03:59 | disposition home or self-care (01) ==
LOC: ER 03:10
PROVIDERS: Emergency Provider Student in an Organized Health Care Education/Training Program; PCP Family Medicine
DX: R42 Dizziness and giddiness (principal); R53.1 Weakness; R05 Cough; I11.0 Hypertensive heart disease with heart failure; I50.23 Acute on chronic systolic (congestive) heart failure
CPT/HCPCS: 36415; 80053; 87635; 93005; 96360; 99285; 70450; 71046; 81003; 81015; 83880; 84439; 84443; 84484; 85025; 87086; 93010; 99284

== ENCOUNTER 2021-05-21 13:19 | Outpatient (REF) | payer MEDICARE, MEDICAID, SELFPAY ==
[2021-05-21 18:13] LABS: Abs Immature Grans 0.05 10^3/uL (0.0-0.06); Absolute Basophil Count 0.04 10^3/uL (0.0-0.2); Absolute Eosinophil Count 0.18 10^3/uL (0.0-0.7); Absolute Lymphocyte Count 1.26 10^3/uL (1.2-3.4); Absolute Monocyte Count 0.66 10^3/uL (0.1-0.8); Absolute Neutrophil Count 6.64 10^3/uL (1.2-6.7); Basophils % 0.5; HGB 13.4 g/dL (11.2-15.7); Immature Grans % 0.6; Lymphocytes % 14.3; MCHC 34.4 % (32.0-36.0); MCV 96.1 fL (80-95); MPV 10.9 fL (8.0-11.0); Monocytes % 7.5; Neutrophils % 75.1; Nucleated RBC 0 %; Platelet Count 244 10^3/uL (130-400); RBC 4.06 10^6/uL (3.93-5.22); RDW 11.7 % (11.7-14.6); RDW-SD 41.1 fL; WBC 8.83 10^3/uL (4.4-10.8)
[2021-05-21 18:21] LABS: ALT 24 U/L (14-59); AST 21 U/L (15-37); Albumin 3.7 g/dL (3.4-5.0); Alkaline Phosphatase 96 U/L (46-116); Anion Gap 5.3 mmol/L (3-11); BUN 10 mg/dL (7-18); Bilirubin, Total 0.7 mg/dL (0.2-1.0); CO2 28.7 mmol/L (21.0-32.0); CREATININE 0.9 mg/dL (0.55-1.02); Calcium 9.5 mg/dL (8.5-10.1); Chloride 87 mmol/L (98-107); Estimated GFR 59.94 (mL/min/1.73m2); Glucose 110 mg/dL (74-106)
[2021-05-21 18:47] LABS: Sodium 121 mmol/L (136-145)
[2021-05-22 15:49] LABS: COVID-19 RT-PCR UVMMC Result Negative (Negative)
== END 2021-05-21 13:20 | disposition home or self-care (01) ==
LOC: LBN 13:19
PROVIDERS: PCP Family Medicine; Visit Provider Family Medicine
DX: R05 Cough (principal); Z20.822 Contact with and (suspected) exposure to COVID-19
CPT/HCPCS: 80053; U0003; U0005; 85025

== ENCOUNTER 2021-05-22 08:44 | Inpatient (IN) | payer MEDICARE, MEDICAID, SELFPAY ==
[2021-05-22] VITALS (25 sets, daily range): BP systolic 112–173; BP diastolic 62–99; PULSE 71–102; RESP 12–23; TEMP 36.2–37.1; O2SAT 97–100
--- NOTE | 2021-05-22 08:45 | RT.EKG_ITS ---
APPROVED REPORT Exam: Resting ECG Reason for Exam: weakness Patient Location: E HR:85 bpm ECG Measurements Heart Rate 85 AXIS MO [id number] P [id number] QRSd 94 QRS 70 QT 373 T 11 QTc 444 Conclusion Atrial fibrillation...? atrial activity Ventricular premature complex...V complex w/ short R-R interval Low voltage, extremity leads...all extremity leads <0.5mV. Afib. PVCs. No STEMI. No significant change from previous. I have reviewed and interpreted ECG and agree with software generated interpretation.
--- NOTE | 2021-05-22 09:04 | ED.GENADUL_ITS ---
Discharge Plan Disposition Patient Disposition: [facility] INPATIENT Condition: Stable Discharge Details Chief Complaint: GenMedical Clinical Impression: Hypomagnesemia, Hyponatremia Admit Date/Time: 05/22/21 09:44 Admit Provider: Niesha Esteban Attending Provider: Niesha Esteban Primary Care Provider: Mary Bee ED Provider: Dalia [place] Discharge Data Discharge Date/Time-TO BE ENTERED AT DEPARTURE: 05/22/21 10:30 Medical Decision Making Patient is a pleasant 81 year old female, sent in by PCP with c/c of hyponatremia. She has been having progressive fatigue, weakness. No focal complaints. States that her appetite has been low. She has been increasing her hydration. Was contacted by PCP yesterday with Na of 121. She was advised to stop her aggressive hdyration and to stop her Lasix. On exam, patient appears nontoxic. No focal abnormalities on exam. Repeat labs signficant for Na of 123 and mag of 1.2. Replenising with 2g of mag. While patient is symptomatic, I do not see emergent manifestation of the hyponat remia. Hypertonic saline not indicated at this time. She is chronically hyponatremic, has been this low in the past. Will try to limit free water and continue to monitor for slow improvement. Discussed admission with patient, she is in agreement. Spoke with Dr. Esteban who agrees to admission. HPI General Mode of arrival: ambulatory . Date/Time Provider Initiated Documentation: 05/22/21 08:52 . Limitations to Documentation: no limitations . Information obtained by: patient, RN notes reviewed and old records reviewed . History of Present Illness 81 year old F presents to the emergency department with the chief complaint of generalized weakness, fatigue, loss of appetite, described as moderate and similar to prior episodes (feels like when she has had hyponatremia historically), with intensity rated at 1 (patient denies any pain). Quality is described as other (fatigue, weakness), Patient started experiencing this week(s) and it has been constant. No relieving factors improve symptom(s), No exacerbating factors reported . Patient notes loss of appetite and weakness (generalized); denies chest pain, cough, diaphoresis, fever/chills, headaches, nausea/vomiting, rash, shortness of breath and syncope. Patient did receive the following treatments prior to arrival, other (was advised to stop lasix) Related Data Home Medications Medication Instructions Recorded Confirmed Women's Multivitamin Gummies 200 mcg PO DAILY #150 tab.chew 06/01/16 05/22/21 thiamine mononitrate (vit B1) 100 mg PO DAILY 11/24/17 05/22/21 vitamin [id number] acid 1,000 heidi SUBLINGUAL DAILY 10/20/19 05/22/21 acetaminophen [Mapap Extra 1,000 mg PO TID #90 tab 10/23/19 05/22/21 Strength] bisacodyl 10 mg UT DAILY PRN PRN #5 ea 10/23/19 05/22/21 losartan 50 mg tablet 50 mg PO DAILY #90 tab-cap 09/03/20 05/22/21 levothyroxine 88 mcg tablet 88 mcg PO DAILY #90 tab 11/25/20 05/22/21 albuterol sulfate 90 mcg/actuation 2 puff IH QID PRN #18 gm 03/03/21 05/22/21 aerosol inhaler fluticasone furoate 100 1 inh INHALATION DAILY #28 each 04/04/21 05/22/21 mcg-vilanterol 25 mcg/dose inhalation powder bisoprolol fumarate 5 mg tablet 5 mg PO DAILY #90 tab 05/05/21 05/22/21 doxycycline monohydrate 100 mg 100 mg PO BID #14 cap 05/21/21 05/21/21 capsule Xarelto 15 mg PO QPM 05/22/21 05/22/21 Previous Rx's Medication Instructions Recorded acetaminophen [Mapap Extra 1,000 mg PO TID #90 tab 10/23/19 Strength] bisacodyl 10 mg UT DAILY PRN PRN #5 ea 10/23/19 losartan 50 mg tablet 50 mg PO DAILY #90 tab-cap 09/03/20 levothyroxine 88 mcg tablet 88 mcg PO DAILY #90 tab 11/25/20 albuterol sulfate 90 mcg/actuation 2 puff IH QID PRN #18 gm 03/03/21 aerosol inhaler fluticasone furoate 100 1 inh INHALATION DAILY #28 each 04/04/21 mcg-vilanterol 25 mcg/dose inhalation powder bisoprolol fumarate 5 mg tablet 5 mg PO DAILY #90 tab 05/05/21 doxycycline monohydrate 100 mg 100 mg PO BID #14 cap 05/21/21 capsule Allergies Allergy/AdvReac Type Severity Reaction Status Date / Time sulfamethoxazole AdvReac Mild NAUSEA Verified 05/21/21 10:28 trimethoprim AdvReac Mild NAUSEA Verified 05/21/21 10:28 MELISSA Inhibitors AdvReac Unknown RENAL Verified 05/21/21 10:28 INSUFFIENCIENCY benazepril AdvReac Unknown Verified 05/21/21 10:28 lovastatin AdvReac Unknown LIGHTHEADED Unverified 05/21/21 10:28 NESS methyldopa AdvReac Unknown Unverified 05/21/21 10:28 simvastatin [From Zocor] AdvReac Unknown BODY ACHES Unverified 05/21/21 10:28 W/ HIGHER DOSES General Stated Complaint: GenMedical ERNESTO: 3 Review of Systems Constitutional Constitutional: Reports as per HPI, Denies chills, Denies fever(s), Denies headache(s), Reports lethargy and Reports weakness ENT Ears, Nose, Mouth, and Throat: Denies headache(s) Cardiovascular Cardiovascular: Reports as per HPI, Denies chest pain and Denies dyspnea Respiratory Respiratory: Reports as per HPI, Denies cough and Denies dyspnea Gastrointestinal Gastrointestinal: Reports as per HPI Genitourinary Genitourinary: Reports system reviewed and no additional complaints, except as documented (she denies urinary symptoms) Neurologic Neurologic: Denies headache(s) and Reports weakness [facility] Medical History Acute on chronic systolic CHF (congestive heart failure) Atrial fibrillation Cardioversion and Amiodarone in 2011: successfull but reverted 1 week later- amiodarone d/c /ON COUMADIN Cardiomyopathy unclear etiology/ EF as low as 25% in 2011-back up around 50% post a.fib. rate regulated and post infection/poss. A.Fib. related vs etoh Closed fracture of left femur (08/22/17) left periprosthetic femur fracture post fall- [place] [facility] [place]) Closed pelvic fracture Essential hypertension (06/20/13) Hyperlipidemia Hyponatremia (05/06/16) [facility] [place] -2014: pb tubular nephron reabsorption; (pager [phone]) Hypothyroidism Pneumonia Polyp of colon Sensorineural hearing loss, bilateral (02/05/14) Surgical History Bilateral salpingectomy with oophorectomy Debridement, Soft Tissue (09/29/17) IRRIGATION AND DEBRIDEMENT LEFT HIP INCISION--PLACEMENT PF LANCE DRAIN ASPIRATION LEFT TKA Status post open reduction with internal fixation of fracture Total replacement of hip (07/08/11) LEFT Family History Mother , AGE 92 No problems noted. Father , AGE 92 Stroke Sister , AGE 93 No problems noted. Sister , AGE 89 No problems noted. Brother , AGE 90 Lung cancer Heart disease Brother , AGE 90 Heart disease Bone cancer Son Alcohol abuse Son , AT No problems noted. Son Alcohol abuse Daughter No problems noted. Daughter No problems noted. Daughter No problems noted. Maternal Grandfather Alcohol abuse Paternal Grandfather , age 100 No problems noted. Maternal Grandmother , age 82 No problems noted. Paternal Grandmother , age 100 No problems noted. Social History Smoking/Tobacco Use Status: Never Smoking risk assessment performed?: Yes Alcohol Intake: current Alcohol Intake frequency: a few times a week Alcohol type: hard liquor Drug use: Never Substance use type: does not use Caregiver/Support person: No Household members: none Communication Needs: Deaf and Corrective Lenses Do you need help understanding health information?: Often Pets and animals: No Sexually active: No What is your relationship status?: Do you belong to any clubs or organized social groups?: yes Panel score (0-1 are the most socially isolated patients): 1 Diane/Confucianism: L[employer]-Day Seatbelt use: always Drive 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 Do you feel safe at home: Yes Do you feel safe in your relationship?: Yes Victim of physical abuse: No Victim of emotional abuse: Yes Victim of sexual abuse: No Would you like helpful sources: No Exam Const General: cooperative, healthy appearing, comfortable and no acute distress Nutritional Appearance: average body habitus and well nourished Orientation: alert and awake Resp Effort & Inspection: normal respiratory effort, able to speak in complete sentences and no respiratory distress Auscultation: clear to auscultation bilaterally Cardio Rate: regular rate Rhythm: regular rhythm Heart Sounds: S1 normal and S2 normal GI Inspection: normal to inspection Palpation: soft and nontender Skin General skin exam: no rashes or lesions noted Neuro General: patient alert and patient awake Cognition: normal cognition Speech: speech normal Gait: normal gait Psych Appearance: grossly normal and well kempt Mental Status: mental status grossly normal Speech and Movement: speech and movement normal Course Vital Signs Vital signs: Vital Signs Temperature 37.1 C 05/22/21 08:49 Pulse 93 H 05/22/21 08:49 Respiratory Rate 16 05/22/21 08:49 Blood Pressure 173/89 H 05/22/21 08:49 Pulse Oximetry 99 05/22/21 08:49 Temperature 37.1 C 05/22/21 08:49 Temperature Source Skin 05/22/21 08:49 Pulse 93 H 05/22/21 08:49 Respiratory Rate 16 05/22/21 08:49 Blood Pressure 173/89 H 05/22/21 08:49 Blood Pressure Position Sitting 05/22/21 08:49 Pulse Oximetry 99 05/22/21 08:49 Oxygen Delivery Method Room Air 05/22/21 08:49 Oxygen Flow Rate 0 05/22/21 08:49 Pain Level 0 05/22/21 08:49
[2021-05-22 09:17] LABS: Abs Immature Grans 0.05 10^3/uL (0.0-0.06); Absolute Basophil Count 0.03 10^3/uL (0.0-0.2); Absolute Eosinophil Count 0.37 10^3/uL (0.0-0.7); Absolute Lymphocyte Count 1.61 10^3/uL (1.2-3.4); Absolute Monocyte Count 0.63 10^3/uL (0.1-0.8); Absolute Neutrophil Count 4.94 10^3/uL (1.2-6.7); Basophils % 0.4; Eosinophils % 4.8; HCT 38.8 % (36.0-46.0); HGB 13.3 g/dL (11.2-15.7); Immature Grans % 0.7; Lymphocytes % 21.1; MCH 32.9 pg (27.0-33.0); MCHC 34.3 % (32.0-36.0); MPV 9.9 fL (8.0-11.0); Monocytes % 8.3; Neutrophils % 64.7; Nucleated RBC 0 %; Platelet Count 219 10^3/uL (130-400); RBC 4.04 10^6/uL (3.93-5.22); RDW 11.9 % (11.7-14.6); RDW-SD 41.6 fL; WBC 7.63 10^3/uL (4.4-10.8)
[2021-05-22 09:24] LABS: Magnesium 1.2 mg/dL (1.8-2.4)
[2021-05-22 09:31] LABS: ALT 21 U/L (14-59); AST 19 U/L (15-37); Albumin 3.5 g/dL (3.4-5.0); Alkaline Phosphatase 96 U/L (46-116); Anion Gap 6.7 mmol/L (3-11); BUN 9 mg/dL (7-18); Bilirubin, Total 0.7 mg/dL (0.2-1.0); CO2 29.3 mmol/L (21.0-32.0); Calcium 9.2 mg/dL (8.5-10.1); Chloride 87 mmol/L (98-107); Estimated GFR 53.08 (mL/min/1.73m2); Glucose 109 mg/dL (74-106); Potassium 3.8 mmol/L (3.5-5.1); Total Protein 8.1 g/dL (6.4-8.2); Troponin I < 0.05 ng/mL (<0.06)
[2021-05-22 09:34] LABS: Sodium 123 mmol/L (136-145)
[2021-05-22] MEDS: MAGNESIUM SULFATE 2 GM/50 ML BAG IVPB ×2 (09:37→11:07)
[2021-05-22] MEDS: Normal Saline 1,000 ML 200 ML IV (09:37)
[2021-05-22 09:50] LABS: Source Nasal/Nares
[2021-05-22 10:24] LABS: TSH (W/Ref FT4) 2.85 uIU/mL (0.36-3.74)
[2021-05-22 12:23] LABS: COVID-19 PCR Negative (Negative)
[2021-05-22 12:38] LABS: Anion Gap 8.7 mmol/L (3-11); BUN 8 mg/dL (7-18); CO2 25.3 mmol/L (21.0-32.0); CREATININE 0.9 mg/dL (0.55-1.02); Calcium 9.1 mg/dL (8.5-10.1); Chloride 88 mmol/L (98-107); Estimated GFR 59.94 (mL/min/1.73m2); Glucose 104 mg/dL (74-106)
[2021-05-22 12:41] LABS: Sodium 122 mmol/L (136-145)
[2021-05-22 13:19] LABS: Troponin I < 0.05 ng/mL (<0.06)
[2021-05-22 13:22] LABS: Bilirubin Negative (Negative); Blood Trace-intact (Negative); Clarity Clear (Clear); Glucose Negative (Negative); Ketones Negative (Negative); Leukocyte Esterase Trace (Negative); Nitrite Negative (Negative); Specific Gravity 1.015 (1.005-1.025); Urobilinogen 0.2 EU/dL (Up TO 0.2)
[2021-05-22] MEDS: Furosemide 20 MG/2 ML VIAL IVP (13:25)
[2021-05-22 13:32] LABS: Bacteria Moderate HPF (Negative); Epithelial Cells Few HPF (Negative); Other Cells Few Transitional (Negative); RBC 0-2 HPF (0-2)
[2021-05-22 13:33] LABS: C & S Indicated? Yes; Casts Negative LPF (Negative); Crystals Negative HPF (Negative); Mucus Trace (Negative)
--- NOTE | 2021-05-22 16:24 | W.PM.HP.N ---
Date of service: 05/22/21 Time of Service: 16:24 Assessment and Plan Assessment and plan (1) Hyponatremia: Status: Acute Assessment and plan: will admit to med/surg will place on fluid restriction, continue lasix hold losartan. follow sodium closely overnight. (2) Atrial fibrillation: Status: Chronic Assessment and plan: rate controlled, chronically anticoagulated. continue home medication Qualifiers: Atrial fibrillation type: persistent (not longstanding) Qualified Code(s): I48.19 - Other persistent atrial fibrillation (3) Hypothyroidism: Status: Chronic Assessment and plan: TSH 2.85 continue home dosing (4) Hypomagnesemia: Status: Acute Assessment and plan: replete and follow (5) Cardiomyopathy: Status: Chronic Assessment and plan: last echo shows EF 55% echo from 08/22/20 Conclusion Normal left ventricular wall thickness and chamber size. Estimated ejection fraction is 55%. There are no segmental wall motion abnormality Right ventricle is borderline dilated. Normal right ventricular systolic function Both atria are moderately dilated The aortic valve is sclerotic and trileaflet without regurgitation or stenosis Mild mitral annular calcification with mild mitral regurgitation Structurally normal tricuspid valve, mild to moderate tricuspid regurgitation, estimated right ventricular systolic pressure 32 mmHg Structurally normal pulmonic valve with trace regurgitation Mildly dilated ascending aorta measuring 3.5 cm Rhythm throughout the test appeared to be atrial fibrillation with controlled rate Qualifiers: Cardiomyopathy type: unspecified Qualified Code(s): I42.9 - Cardiomyopathy, unspecified (6) Essential hypertension: Status: Chronic Assessment and plan: losartan placed on hold in setting of hyponatremia. discussed with Dr Esteban History of Present Illness History of Present Illness Chief Complaint: generalized weakness Narrative: presents to ED for evaluation after being found hyponatremic on outpatient labs. reports she has had generalized malaise and increased weakness over past week or so. she was pushing free water to stay hydrated but po intake otherwise poor. work up in the ED shows hyponatremia, improved slightly overnight on fluid restriction. She was also advised to hold her lasix. she denies fever, chest pain or shortness of breath. she has had no abdominal pain nausea or diarrhea. no sick contacts with similar symptoms. hospitalist to admit for hyponatremia. she is given a dose of IV lasix. Review of Systems Constitutional Constitutional: Reports anorexia, Denies body ache(s), Reports fatigue, Denies fever(s), Denies headache(s), Reports lethargy, Reports malaise, Reports poor appetite and Reports weakness ENT Ears, Nose, Mouth, and Throat: Denies headache(s) Cardiovascular Cardiovascular: Denies syncope, Denies rapid heart rate, Denies leg edema, Denies lightheadedness and Denies dyspnea Respiratory Respiratory: Denies cough and Denies dyspnea Gastrointestinal Gastrointestinal: Denies abdominal pain, Denies constipation, Denies nausea and Denies vomiting Neurologic Neurologic: Denies syncope, Denies headache(s), Denies convulsions and Reports weakness Endocrine Endocrine: Reports fatigue [facility] Medical History Acute on chronic systolic CHF (congestive heart failure) Atrial fibrillation Cardioversion and Amiodarone in 2011: successfull but reverted 1 week later- amiodarone d/c /ON COUMADIN Cardiomyopathy unclear etiology/ EF as low as 25% in 2011-back up around 50% post a.fib. rate regulated and post infection/poss. A.Fib. related vs etoh Closed fracture of left femur (08/22/17) left periprosthetic femur fracture post fall- treated [facility] [place] (open reduction/int.fixation) Closed pelvic fracture Essential hypertension (06/20/13) Hyperlipidemia Hyponatremia (05/06/16) [facility] [place] Nephrology : pb tubular nephron reabsorption; (pager [phone]) Hypothyroidism Pneumonia Polyp of colon Sensorineural hearing loss, bilateral (02/05/14) Surgical History Bilateral salpingectomy with oophorectomy Debridement, Soft Tissue (09/29/17) IRRIGATION AND DEBRIDEMENT LEFT HIP INCISION--PLACEMENT PF LANCE DRAIN ASPIRATION LEFT TKA Status post open reduction with internal fixation of fracture Total replacement of hip (07/08/11) LEFT Family History Mother , AGE 92 No problems noted. Father , AGE 92 Stroke Sister , AGE 93 No problems noted. Sister , AGE 89 No problems noted. Brother , AGE 90 Lung cancer Heart disease Brother , AGE 90 Heart disease Bone cancer Son Alcohol abuse Son , AT No problems noted. Son Alcohol abuse Daughter No problems noted. Daughter No problems noted. Daughter No problems noted. Maternal Grandfather Alcohol abuse Paternal Grandfather , age 100 No problems noted. Maternal Grandmother , age 82 No problems noted. Paternal Grandmother , age 100 No problems noted. Social History Smoking/Tobacco Use Status: Never Smoking risk assessment performed?: Yes Alcohol Intake: current Alcohol Intake frequency: a few times a week Alcohol type: hard liquor Drug use: Never Substance use type: does not use Caregiver/Support person: No Household members: none Communication Needs: Deaf and Corrective Lenses Do you need help understanding health information?: Often Pets and animals: No Sexually active: No What is your relationship status?: Do you belong to any clubs or organized social groups?: yes Panel score (0-1 are the most socially isolated patients): 1 Diane/Mu-Ism: Pentecostal Seatbelt use: always Drive intox or ride w/intox 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 Do you feel safe at home: Yes Do you feel safe in your relationship?: Yes Victim of physical abuse: No Victim of emotional abuse: Yes Victim of sexual abuse: No Would you like helpful sources: No Meds Allergies and Home Medications Allergies Allergy/AdvReac Type Severity Reaction Status Date / Time sulfamethoxazole AdvReac Mild NAUSEA Verified 05/21/21 10:28 trimethoprim AdvReac Mild NAUSEA Verified 05/21/21 10:28 MELISSA Inhibitors AdvReac Unknown RENAL Verified 05/21/21 10:28 INSUFFIENCIENCY benazepril AdvReac Unknown Verified 05/21/21 10:28 lovastatin AdvReac Unknown LIGHTHEADED Unverified 05/21/21 10:28 NESS methyldopa AdvReac Unknown Unverified 05/21/21 10:28 simvastatin [From Zocor] AdvReac Unknown BODY ACHES Unverified 05/21/21 10:28 W/ HIGHER DOSES Home Medications Medication Instructions Recorded Confirmed Type Women's Multivitamin Gummies 200 mcg PO DAILY #150 tab.chew 06/01/16 05/22/21 History thiamine mononitrate (vit B1) 100 mg PO DAILY 11/24/17 05/22/21 History Proventil Hfa 1 - 2 puff INHALATION [id number] PRN 01/06/18 05/22/21 Clinic #1 inhaler vitamin [id number] acid 1,000 heidi SUBLINGUAL DAILY 10/20/19 05/22/21 History acetaminophen [Mapap Extra 1,000 mg PO TID #90 tab 10/23/19 05/22/21 Rx Strength] bisacodyl 10 mg [place] DAILY PRN PRN #5 ea 10/23/19 05/22/21 Rx losartan 50 mg tablet 50 mg PO DAILY #90 tab-cap 09/03/20 05/22/21 Rx levothyroxine 88 mcg tablet 88 mcg PO DAILY #90 tab 11/25/20 05/22/21 Rx albuterol sulfate 90 mcg/actuation 2 puff IH QID PRN #18 gm 03/03/21 05/22/21 Rx aerosol inhaler fluticasone furoate 100 1 inh INHALATION DAILY #28 each 04/04/21 05/22/21 Rx mcg-vilanterol 25 mcg/dose inhalation powder bisoprolol fumarate 5 mg tablet 5 mg PO DAILY #90 tab 05/05/21 05/22/21 Rx doxycycline monohydrate 100 mg 100 mg PO BID #14 cap 05/21/21 05/21/21 Rx capsule Xarelto 15 mg PO QPM 05/22/21 05/22/21 History Exam Const General: cooperative, comfortable, no acute distress and frail appearing (elderly female of stated age) Nutritional Appearance: average body habitus [facility] Head: normal to inspection, normocephalic and atraumatic Mouth: oral mucosae normal Resp Effort & Inspection: normal respiratory effort Auscultation: clear to auscultation bilaterally Cardio Rate: regular rate Rhythm: abnormal rhythm GI Inspection: normal to inspection Palpation: soft and nontender Auscultation: normal bowel sounds Skin General skin exam: no rashes or lesions noted Extrem General: normal to inspection (chronic discoloration to bilateral lower extremities) and no pedal edema Results Labs Result diagrams: 05/22/21 09:00 05/22/21 12:00 Labs: Laboratory Results - last 24 hr 05/22/21 05/22/21 05/22/21 09:00 09:00 09:00 WBC 7.63 RBC 4.04 Hgb 13.3 Hct 38.8 MCV 96.0 H MCH 32.9 MCHC 34.3 RDW 11.9 Plt Count 219 MPV 9.9 Immature Gran % 0.7 Neutrophils % 64.7 Lymphocytes % 21.1 Monocytes % 8.3 Eosinophils % 4.8 Basophils % 0.4 Nucleated RBC % 0 Absolute Neutrophils 4.94 Absolute Lymphocytes 1.61 Absolute Monocytes 0.63 Absolute Eosinophils 0.37 Absolute Basophils 0.03 Sodium 123 L* Potassium 3.8 Chloride 87 L Carbon Dioxide 29.3 Anion Gap 6.7 BUN 9 Creatinine 1.0 Estimated GFR/1.73 m2 53.08 Glucose 109 H Calcium 9.2 Magnesium 1.2 L Total Bilirubin 0.7 AST 19 ALT 21 Alkaline Phosphatase 96 Troponin I < 0.05 Total Protein 8.1 Albumin 3.5 TSH Urine Color Urine Clarity Urine pH Ur Specific [place] Urine Protein Urine Ketones Urine Blood Urine Nitrite Urine Bilirubin Urine Urobilinogen Ur Leukocyte Esterase Urine RBC Urine WBC Ur Epithelial Cells Urine Crystals Urine Bacteria Urine Casts Urine Mucus Urine Other Ur Culture Indicated? Urine Glucose COVID-19 Source SARS-CoV-2 (PCR) 05/22/21 05/22/21 05/22/21 09:00 09:44 12:00 WBC RBC Hgb Hct MCV MCH MCHC RDW Plt Count MPV Immature Gran % Neutrophils % Lymphocytes % Monocytes % Eosinophils % Basophils % Nucleated RBC % Absolute Neutrophils Absolute Lymphocytes Absolute Monocytes Absolute Eosinophils Absolute Basophils Sodium Potassium Chloride Carbon Dioxide Anion Gap BUN Creatinine Estimated GFR/1.73 m2 Glucose Calcium Magnesium Total Bilirubin AST ALT Alkaline Phosphatase Troponin I < 0.05 Total Protein Albumin TSH 2.85 Urine Color Urine Clarity Urine pH Ur Specific [place] Urine Protein Urine Ketones Urine Blood Urine Nitrite Urine Bilirubin Urine Urobilinogen Ur Leukocyte Esterase Urine RBC Urine WBC Ur Epithelial Cells Urine Crystals Urine Bacteria Urine Casts Urine Mucus Urine Other Ur Culture Indicated? Urine Glucose COVID-19 Source Nasal/Nares SARS-CoV-2 (PCR) Negative 05/22/21 05/22/21 12:00 13:00 WBC RBC Hgb Hct MCV MCH MCHC RDW Plt Count MPV Immature Gran % Neutrophils % Lymphocytes % Monocytes % Eosinophils % Basophils % Nucleated RBC % Absolute Neutrophils Absolute Lymphocytes Absolute Monocytes Absolute Eosinophils Absolute Basophils Sodium 122 L* Potassium 4.0 Chloride 88 L Carbon Dioxide 25.3 Anion Gap 8.7 BUN 8 Creatinine 0.9 Estimated GFR/1.73 m2 59.94 Glucose 104 Calcium 9.1 Magnesium Total Bilirubin AST ALT Alkaline Phosphatase Troponin I Total Protein Albumin TSH Urine Color Yellow Urine Clarity Clear Urine pH 7.0 Ur Specific [place] 1.015 Urine Protein Negative Urine Ketones Negative Urine Blood Trace-intact H Urine Nitrite Negative Urine Bilirubin Negative Urine Urobilinogen 0.2 Ur Leukocyte Esterase Trace H Urine RBC 0-2 Urine WBC 10-20 H Ur Epithelial Cells Few Urine Crystals Negative Urine Bacteria Moderate Urine Casts Negative Urine Mucus Trace Urine Other Few Transitional Ur Culture Indicated? Yes Urine Glucose Negative COVID-19 Source SARS-CoV-2 (PCR) Last Vital Signs Temp 36.4 C L 05/22/21 14:58 Pulse 85 05/22/21 14:58 Resp 16 05/22/21 14:58 BP 125/76 05/22/21 14:58 Pulse Ox 98 05/22/21 14:58
[2021-05-22 19:02] LABS: Anion Gap 6.5 mmol/L (3-11); BUN 13 mg/dL (7-18); CO2 28.5 mmol/L (21.0-32.0); CREATININE 0.9 mg/dL (0.55-1.02); Calcium 9.5 mg/dL (8.5-10.1); Chloride 89 mmol/L (98-107); Estimated GFR 59.94 (mL/min/1.73m2); Glucose 112 mg/dL (74-106); Potassium 4.6 mmol/L (3.5-5.1)
[2021-05-22 19:07] LABS: Sodium 124 mmol/L (136-145)
[2021-05-22] MEDS: Rivaroxaban 15 MG TABLET PO (19:43)
[2021-05-23] VITALS (10 sets, daily range): BP systolic 105–119; BP diastolic 52–72; PULSE 62–91; RESP 17–18; TEMP 36.1–37.5; O2SAT 97–100
[2021-05-23 00:34] LABS: Anion Gap 6.1 mmol/L (3-11); BUN 15 mg/dL (7-18); CO2 27.9 mmol/L (21.0-32.0); CREATININE 0.9 mg/dL (0.55-1.02); Chloride 90 mmol/L (98-107); Estimated GFR 59.94 (mL/min/1.73m2); Glucose 111 mg/dL (74-106); Potassium 3.8 mmol/L (3.5-5.1)
[2021-05-23 00:36] LABS: Sodium 124 mmol/L (136-145)
[2021-05-23] MEDS: Levothyroxine 88 MCG TAB PO (05:20)
[2021-05-23 07:27] LABS: BUN 14 mg/dL (7-18); CREATININE 0.9 mg/dL (0.55-1.02); Calcium 8.9 mg/dL (8.5-10.1); Chloride 91 mmol/L (98-107); Estimated GFR 59.94 (mL/min/1.73m2); Glucose 103 mg/dL (74-106); Sodium 125 mmol/L (136-145)
[2021-05-23 07:28] LABS: Magnesium 1.7 mg/dL (1.8-2.4)
[2021-05-23] MEDS: Budesonide/Formoterol 80/4.5 6.9 GM 60 PUFF INH IH ×2 (08:01→20:50)
[2021-05-23] MEDS: Thiamine 100 MG TAB PO (08:09)
[2021-05-23] MEDS: Bisoprolol 5 MG TAB PO (08:09)
[2021-05-23] MEDS: Furosemide 20 MG TAB PO (10:01)
--- NOTE | 2021-05-23 10:36 | INITIAL_ITS ---
- If Service Date Differs Date of service: 05/23/21 Time of Service: 10:36 Care Management Initial Assess REASON FOR HOSPITALIZATION:: Acute on chronic hyponatremia, hypomagnesemia PAST MEDICAL HISTORY/PAST SURGICAL HISTORY:: Medical History. Acute on chronic systolic CHF (congestive heart failure). Atrial fibrillation. Cardioversion and Amiodarone in 2011: successfull but reverted 1 week later- amiodarone d/c /ON COUMADIN. Cardiomyopathy. unclear etiology/ EF as low as 25% in 2011-back up around 50% post a.fib. rate regulated and post infection/poss. A.Fib. related vs etoh. Closed fracture of left femur (08/22/17). left periprosthetic femur fracture post fall- [place] [facility] [place]/int.fixation). Closed pelvic fracture. Essential hypertension (06/20/13). Hyperlipidemia. Hyponatremia (05/06/16). [facility] [place] : pb tubular nephron reabsorption; (pager [phone]). Hypothyroidism. Pneumonia. Polyp of colon. Sensorineural hearing loss, bilateral (02/05/14). Surgical History. Bilateral salpingectomy with oophorectomy. Debridement, Soft Tissue (09/29/17). IRRIGATION AND DEBRIDEMENT LEFT HIP INCISION--PLACEMENT PF LANCE DRAIN. ASPIRATION LEFT TKA. Status post open reduction with internal fixation of fracture. Total replacement of hip (07/08/11). LEFT PREVIOUS FUNCTIONAL STATUS/SOCIAL/FAMILY SUPPORTS:: Reta has been for 14 years. She lives alone in an apartment at [facility]. She is able to perform all of her own care and ADLs. She has 9 children and 19 grandchildren who are helpful and supportive. Reta had 4 siblings but they are all . Her main supports are her son Rashid and his girlfriend Torri. They both help Reta with acquiring food and transportation. Reta reports having many friends locally. She also reports enjoying her stay at the [facility] this time last year after her fall. She speaks highly of where she resides, in custodial where she has been for the last ten years. CURRENT FUNCTIONAL STATUS:: Reta was sitting up in her chair when CM met with her. She reported that she is feeling better today. Per report, she is receiving lasiks today and is on a fluid restriction. Reta reported that she feels very supported in the community by her friends and family, Home Health (caregivers who check in monthly) as well as COA (case management who check on her monthly). She does not feel that she needs additional support at this time. CM will continue to follow. ADVANCE DIRECTIVES:: COLST and AD on file at [facility]. Barb listed as agent. Rashid listed as alternate agent. Has patient been provided with info about the portal/API?: Yes Did the patient sign up for the portal?: No CODE STATUS:: DNR/DNI (Per COLST and AD, both on file.) INSURANCE COVERAGE / FINANCIAL ISSUES:: MCR/ KERRY/ Financial Assist 100% CURRENT HOME/COMMUNITY SERVICES/EQUIPMENT:: FWW, care home housing, Moderate support (homemaker approved no current staffing), COA CM (unsure of name-new hire), before ANTHONY did independent living exercise class at [facility] (really liked it). PRIMARY CARE PHYSICIAN:: Mary Bee POTENTIAL DISCHARGE NEEDS:: Evaluation for further needs, follow up appointments. PATIENT/FAMILY EDUCATION NEEDS:: Review discharge instructions, discuss Ask Me Three. ANTICIPATED BARRIERS TO DISCHARGE:: None identified at this time. TRANSPORTATION:: Private vehicle by family. PLAN:: Anticipate Reta will return home when medically cleared. She will be driven home via private vehicle by family. She will follow up with her PCP and discharge plan of care. CM will continue to follow.
[2021-05-23 12:12] LABS: Sodium 126 mmol/L (136-145)
--- NOTE | 2021-05-23 16:03 | IN_ITS ---
Date of service: 05/23/21 Time of Service: 15:30 PT Notes Visit Reasons: Acute on Chronic Hypoatremia,Hypomagnesemia Physical Therapy Inpatient Initial Evaluation Date: 05/23/21 Referring Doctor: Vijaya Foss NP PT Orders: PT CONSULT: Eval & treat Precautions: Fall. Standard. Hearing aides. Fluid restriction. Patient Profile/Admitting Diagnosis: Reta is an 81 yo female that presented to the ER on 05/22/2021 per PT recommendation for hyponatremia. She has been complaining of fatigue and weakness. Patient was admitted in order to manage her levels. PMHX: Acute on chronic systolic CHF (congestive heart failure) Atrial fibrillation Cardioversion and Amiodarone in 2011: successfull but reverted 1 week later- amiodarone d/c /ON COUMADIN Cardiomyopathy unclear etiology/ EF as low as 25% in 2011-back up around 50% post a.fib. rate regulated and post infection/poss. A.Fib. related vs etoh Closed fracture of left femur (08/22/17) left periprosthetic femur fracture post fall- treated [facility] [place] (open reduction/int.fixation) Closed pelvic fracture Essential hypertension (06/20/13) Hyperlipidemia Hyponatremia (05/06/16) [facility] [place] Nephrology : pb tubular nephron reabsorption; (pager [phone]) Hypothyroidism Pneumonia Polyp of colon Sensorineural hearing loss, bilateral (02/05/14) Surgical History Bilateral salpingectomy with oophorectomy Debridement, Soft Tissue (09/29/17) IRRIGATION AND DEBRIDEMENT LEFT HIP INCISION--PLACEMENT PF LANCE DRAIN ASPIRATION LEFT TKA Status post open reduction with internal fixation of fracture Total replacement of hip (07/08/11), LEFT Social History/Home Situation: Lives in prison apartment on main level, ambulates with FWW, small household distances required, patient does not drive. Daughter visits regularly. Equipment Owned/DME: FWW Subjective: Cleared by nursing to see patient and patient is agreeable to PT. Patient resting in bed sleeping at time of consult and connected to telemetry. Objective: General Observation: Patient pleasant and motivated. Crepitus and grinding in right knee with assessment. Mental Status: A&O x3 Pain: No pain ROM: Right Upper Extremity: Shoulder Flexion WFL. Shoulder abduction WFL. Elbow flexion WFL. Wrist flexion WFL. Opening and closing of hand WFL. Left Upper Extremity: Shoulder Flexion WFL. Shoulder abduction WFL. Elbow flexion WFL. Wrist flexion WFL. Opening and closing of hand WFL. Right Lower Extremity: Hip flexion WFL. Hip abduction WFL. Knee flexion WFL. Ankle dorsiflexion WFL. Ankle plantarflexion WFL. Left Lower Extremity: Hip flexion WFL. Hip abduction WFL. Knee flexion WFL. Ankle dorsiflexion WFL. Ankle plantarflexion WFL. Strength: Right Upper Extremity: Shoulder flexors 5/5. Shoulder abductors 5/5. Shoulder ER 4/5. Shoulder IR 5/5. Elbow flexors 5/5. Elbow extensors 5/5. Dye Tank Tender strong. Left Upper Extremity: Shoulder flexors 5/5. Shoulder abductors 5/5. Shoulder ER 5/5. Shoulder IR 5/5. Elbow flexors 5/5. Elbow extensors 5/5. Dye Tank Tender strong. Right Lower Extremity: Hip flexors 5/5. Hip abductors 5/5. Knee flexors 5/5. Knee extensors 5/5. Ankle dorsiflexors 5/5. Ankle plantarflexors 5/5. Left Lower Extremity: Hip flexors 5/5. Hip abductors 5/5. Knee flexors 5/5. Knee extensors 5/5. Ankle dorsiflexors 5/5. Ankle plantarflexors 5/5. Sensation: Intact as to pain and pressure on bilateral lower extremities. Bed Mobility/Transfers: Rolling: Independent Supine to sit: Independent Sit to supine: Supervision Sit to stand: SBA Stand to sit: Supervision Gait: Ambulated 200ft with SBA using FWW Balance: Static Sitting: Normal Dynamic Sitting: Good Static Standing: Fair Dynamic Standing: Poor Special Tests: Mobility Limitations Standardized Measure [facility] AM-PAC 6 clicks Basic Mobility Inpatient Short Form: Raw Score: 20 CMS Score: 35.8% Informed Consent/Education: Patient instructed in purpose of PT consult and plan of care. Assessment: Patient presents with clinical signs and symptoms consistent with current/admitting diagnoses that have resulted to mobility limitations, gait instability, generalized weakness, and impairment of motor control as demonstrated by the following impairment level findings: 1. Impaired standing balance 2. Impaired activity tolerance Impairments are contributing to the following functional limitations: 1. Increase completion time for mobility ADL performance 2. Increased fall risk Patient is assessed as a Low complexity based on the following: History: 81 year old female with impairment level findings, functional limitations, and past medical history as indicated above Examination: Demonstrable impairment in strength, balance, and mobility level with underlying impairments and functional limitations as documented above Presentation: Stable Decision Making: Low complexity Goals: Goals x1 week 1. Sit-Supine: independent 2. Sit-Stand: independent 3. Independent gait on level surface with use of least restrictive device for at least 300 feet without report of pain nor dyspnea 4. Independent with home exercise program 5. Good static and dynamic standing balance/tolerance Plan of Care/Treatment Plan: 1-2x/day, 7 days/week x 1 week. Plan of care has been reviewed with the RETAIL FINANCIAL ANALYST providing the service under Physical Therapy direction. Initiate Physical Therapy intervention for strengthening, bed mobility, transfers, gait, stairs, balance training, and use of assistive device. DISCHARGE RECOMMENDATIONS: Home TREATMENT CODE/TIME: 15:30-15:52 (22 minutes), [id number] Thank you for the opportunity to participate in the care of this patient. Kenia Ferrer, PT, DPT, OCS [facility] [place], [place]
--- NOTE | 2021-05-23 18:30 | PT.INDS ---
Date of service: 05/23/21 PT Notes Visit Reasons: Acute on Chronic Hypoatremia,Hypomagnesemia Physical Therapy Inpatient Discharge Summary Date: 05/23/21 Dates of Service: 05/23/2021 only This is a clinical summary of care provided for the duration of dates listed above. No charge was made in the completion of this documentation. Referring Doctor: Vijaya Foss NP PT Orders: PT CONSULT: Eval & treat Precautions: Fall. Standard. Hearing aides. Fluid restriction. Patient Profile/Admitting Diagnosis: Reta is an 81 yo female that presented to the ER on 05/22/2021 per PT recommendation for hyponatremia. She has been complaining of fatigue and weakness. Patient was admitted in order to manage her levels. PMHX: Medical History Acute on chronic systolic CHF (congestive heart failure) Atrial fibrillation Cardioversion and Amiodarone in 2011: successfull but reverted 1 week later- amiodarone d/c /ON COUMADIN Cardiomyopathy unclear etiology/ EF as low as 25% in 2011-back up around 50% post a.fib. rate regulated and post infection/poss. A.Fib. related vs etoh Closed fracture of left femur (08/22/17) left periprosthetic femur fracture post fall- [place] [facility] [place]int.fixation) Closed pelvic fracture Essential hypertension (06/20/13) Hyperlipidemia Hyponatremia (05/06/16) [facility] [place] Nephrology : pb tubular nephron reabsorption; (pager [phone]) Hypothyroidism Pneumonia Polyp of colon Sensorineural hearing loss, bilateral (02/05/14) Surgical History Bilateral salpingectomy with oophorectomy Debridement, Soft Tissue (09/29/17) IRRIGATION AND DEBRIDEMENT LEFT HIP INCISION--PLACEMENT PF LANCE DRAIN ASPIRATION LEFT TKA Status post open reduction with internal fixation of fracture Total replacement of hip (07/08/11), LEFT Social History/Home Situation: Lives in [facility] apartment on main level, ambulates with FWW, small household distances required, patient does not drive. Daughter visits regularly. Equipment Owned/DME: FWW Subjective: NT. See most recent GPS FIELD DATA COLLECTOR notes. Objective: General Observation: NT. See most recent GPS FIELD DATA COLLECTOR notes. Mental Status: NT. See most recent GPS FIELD DATA COLLECTOR notes. Pain: Fernando is a nT. See most recent GPS FIELD DATA COLLECTOR notes. ROM: Right Upper Extremity: Shoulder Flexion WFL. Shoulder abduction WFL. Elbow flexion WFL. Wrist flexion WFL. Opening and closing of hand WFL. Left Upper Extremity: Shoulder Flexion WFL. Shoulder abduction WFL. Elbow flexion WFL. Wrist flexion WFL. Opening and closing of hand WFL. Right Lower Extremity: Hip flexion WFL. Hip abduction WFL. Knee flexion WFL. Ankle dorsiflexion WFL. Ankle plantarflexion WFL. Left Lower Extremity: Hip flexion WFL. Hip abduction WFL. Knee flexion WFL. Ankle dorsiflexion WFL. Ankle plantarflexion WFL. Strength: Right Upper Extremity: Shoulder flexors 5/5. Shoulder abductors 5/5. Shoulder ER 4/5. Shoulder IR 5/5. Elbow flexors 5/5. Elbow extensors 5/5. Mortgage Loan Originator strong. Left Upper Extremity: Shoulder flexors 5/5. Shoulder abductors 5/5. Shoulder ER 5/5. Shoulder IR 5/5. Elbow flexors 5/5. Elbow extensors 5/5. Mortgage Loan Originator strong. Right Lower Extremity: Hip flexors 5/5. Hip abductors 5/5. Knee flexors 5/5. Knee extensors 5/5. Ankle dorsiflexors 5/5. Ankle plantarflexors 5/5. Left Lower Extremity: Hip flexors 5/5. Hip abductors 5/5. Knee flexors 5/5. Knee extensors 5/5. Ankle dorsiflexors 5/5. Ankle plantarflexors 5/5. Sensation: Intact as to pain and pressure on bilateral lower extremities. Bed Mobility/Transfers: Rolling: Independent Supine to sit: Independent Sit to supine: Supervision Sit to stand: SBA Stand to sit: Supervision Gait: Ambulated 200ft with SBA using FWW Balance: Static Sitting: Normal Dynamic Sitting: Good Static Standing: Fair Dynamic Standing: Poor Assessment: Patient presents with clinical signs and symptoms consistent with current/admitting diagnoses that have resulted to mobility limitations, gait instability, generalized weakness, and impairment of motor control as demonstrated by the following impairment level findings: 1. Impaired standing balance 2. Impaired activity tolerance Impairments are contributing to the following functional limitations: 1. Increase completion time for mobility ADL performance 2. Increased fall risk Patient is assessed as a Low complexity based on the following: History: 81 year old female with impairment level findings, functional limitations, and past medical history as indicated above Examination: Demonstrable impairment in strength, balance, and mobility level with underlying impairments and functional limitations as documented above Presentation: Stable Decision Making: Low complexity Goals: Goals x1 week 1. Sit-Supine: independent MET 2. Sit-Stand: independent MET 3. Independent gait on level surface with use of least restrictive device for at least 300 feet without report of pain nor dyspnea NOT MET 4. Independent with home exercise program NOT MET 5. Good static and dynamic standing balance/tolerance NOT MET DISCHARGE RECOMMENDATIONS: Home TREATMENT CODE/TIME: NC Thank you for the opportunity to participate in the care of this patient. Rose Ladd PT, DPT, CLT [facility] [place], [place]
--- NOTE | 2021-05-23 18:40 | PGE_ITS ---
Date of Service Date of service: 05/23/21 Time of Service: 18:40 Assessment and Plan Assessment and plan (1) Hyponatremia: Start date: 05/23/21 Start time: 18:41 Status: Acute Assessment and plan: will place on fluid restriction, low sodium diet, continue lasix hold losartan. follow sodium closely overnight improved to 127 baseline of 133 Will repeat in am Possible discharge tomorrow (2) Atrial fibrillation: Start date: 05/23/21 Start time: 18:42 Status: Chronic Assessment and plan: rate controlled, chronically anticoagulated. continue home medication Qualifiers: Atrial fibrillation type: persistent (not longstanding) Qualified Code(s): I48.19 - Other persistent atrial fibrillation (3) Hypothyroidism: Start date: 05/23/21 Start time: 18:42 Status: Chronic Assessment and plan: TSH 2.85 continue home dosing (4) Hypomagnesemia: Start date: 05/23/21 Start time: 18:42 Status: Acute Assessment and plan: replete and follow (5) Cardiomyopathy: Start date: 05/23/21 Start time: 18:42 Status: Chronic Assessment and plan: last echo shows EF 55% echo from 08/22/20 Conclusion Normal left ventricular wall thickness and chamber size. Estimated ejection fraction is 55%. There are no segmental wall motion abnormality Right ventricle is borderline dilated. Normal right ventricular systolic function Both atria are moderately dilated The aortic valve is sclerotic and trileaflet without regurgitation or stenosis Mild mitral annular calcification with mild mitral regurgitation Structurally normal tricuspid valve, mild to moderate tricuspid regurgitation, estimated right ventricular systolic pressure 32 mmHg Structurally normal pulmonic valve with trace regurgitation Mildly dilated ascending aorta measuring 3.5 cm Rhythm throughout the test appeared to be atrial fibrillation with controlled rate Qualifiers: Cardiomyopathy type: unspecified Qualified Code(s): I42.9 - C ardiomyopathy, unspecified (6) Essential hypertension: Start date: 05/23/21 Start time: 18:42 Status: Chronic Assessment and plan: losartan placed on hold in setting of hyponatremia. discussed with Dr Esteban Subjective Subjective Patient reports: feels better Interval history since last seen: Doing well, worked with PT, No complaints continue to monitor. Exam Const General: cooperative, comfortable, no acute distress and frail appearing (elderly female of stated age) Nutritional Appearance: average body habitus HENMT Head: normal to inspection, normocephalic and atraumatic Mouth: oral mucosae normal Resp Effort & Inspection: normal respiratory effort Auscultation: clear to auscultation bilaterally Cardio Rate: regular rate Rhythm: abnormal rhythm GI Inspection: normal to inspection Palpation: soft and nontender Auscultation: normal bowel sounds Skin General skin exam: no rashes or lesions noted Extrem General: normal to inspection (chronic discoloration to bilateral lower extremities) and no pedal edema Objective Last Vital Signs Temp 37.1 C 05/23/21 16:03 Pulse 75 05/23/21 16:03 Resp 18 05/23/21 16:03 BP 116/72 05/23/21 16:03 Pulse Ox 99 05/23/21 16:03 Laboratory Results - last 24 hr 05/22/21 05/23/21 05/23/21 18:42 00:15 06:45 Sodium 124 L 124 L 125 L Potassium 4.6 3.8 4.0 Chloride 89 L 90 L 91 L Carbon Dioxide 28.5 27.9 28.0 Anion Gap 6.5 6.1 6.0 BUN 13 15 14 Creatinine 0.9 0.9 0.9 Estimated GFR/1.73 m2 59.94 59.94 59.94 Glucose 112 H 111 H 103 Calcium 9.5 9.0 8.9 Magnesium 05/23/21 05/23/21 06:45 12:00 Sodium 126 L Potassium Chloride Carbon Dioxide Anion Gap BUN Creatinine Estimated GFR/1.73 m2 Glucose Calcium Magnesium 1.7 L
[2021-05-23] MEDS: Magnesium Chloride 64 MG TABCR PO (20:43)
[2021-05-23] MEDS: Rivaroxaban 15 MG TABLET PO (20:43)
[2021-05-24 04:07] VITALS: BP 116/98; PULSE 81; RESP 18; TEMP 36.6; O2SAT 99
[2021-05-24] MEDS: Levothyroxine 88 MCG TAB PO (06:00)
[2021-05-24 07:00] VITALS: PULSE 78
[2021-05-24 07:20] LABS: Anion Gap 5.9 mmol/L (3-11); BUN 16 mg/dL (7-18); CO2 29.1 mmol/L (21.0-32.0); Chloride 91 mmol/L (98-107); Estimated GFR 53.08 (mL/min/1.73m2); Glucose 103 mg/dL (74-106); Sodium 126 mmol/L (136-145)
[2021-05-24 07:21] LABS: Magnesium 1.4 mg/dL (1.8-2.4)
[2021-05-24 07:46] VITALS: BP 116/66; PULSE 79; RESP 20; TEMP 36.8; O2SAT 97
[2021-05-24] MEDS: Normal Saline Flush 10 ML SYR IVP (07:52)
[2021-05-24] MEDS: Magnesium Chloride 64 MG TABCR PO (07:53)
[2021-05-24] MEDS: Furosemide 20 MG TAB PO (07:53)
[2021-05-24] MEDS: Bisoprolol 5 MG TAB PO (07:53)
[2021-05-24] MEDS: Thiamine 100 MG TAB PO (07:53)
[2021-05-24] MEDS: Budesonide/Formoterol 80/4.5 6.9 GM 60 PUFF INH IH (08:12)
--- NOTE | 2021-05-24 09:21 | W.PM.DS.N ---
Date of service: 05/24/21 Time of Service: DS: Diagnosis Discharge Diagnosis (1) Hyponatremia: Start date: 05/24/21 Start time: : Status: Chronic Asessment and Plan: Patient appears to be at baseline when graphing out over the last 180 days. continue fluid restriction at home along with lasix, and low sodium diet She can have 1200 cc/day Repeat lab bmp in 4 days and follow up with PCP in one week (2) Atrial fibrillation: Start date: 05/24/21 Start time: :25 Status: Chronic Asessment and Plan: Rate controlled, continue anticoagulation which is chronic and home medications (3) Hypothyroidism: Start date: 05/24/21 Start time: : Status: Chronic Asessment and Plan: TSH was 2.85, continue home dosing (4) Hypomagnesemia: Start date: 05/24/21 Start time: : Status: Acute Asessment and Plan: AM mag 1.4 will replete with IV and PO Repeat mag level in [address] on home supplementation (5) Cardiomyopathy: Start date: 05/24/21 Start time: : Status: Chronic Asessment and Plan: last echo shows EF 55% echo from 08/22/20 Conclusion Normal left ventricular wall thickness and chamber size. Estimated ejection fraction is 55%. There are no segmental wall motion abnormality Right ventricle is borderline dilated. Normal right ventricular systolic function Both atria are moderately dilated The aortic valve is sclerotic and trileaflet without regurgitation or stenosis Mild mitral annular calcification with mild mitral regurgitation Structurally normal tricuspid valve, mild to moderate tricuspid regurgitation, estimated right ventricular systolic pressure 32 mmHg Structurally normal pulmonic valve with trace regurgitation Mildly dilated ascending aorta measuring 3.5 cm Rhythm throughout the test appeared to be atrial fibrillation with controlled rate continue meds and follow up with cardiology as scheduled (6) Essential hypertension: Start date: 05/24/21 Start time: 09:30 Status: Chronic Asessment and Plan: continue home medications. (7) Allergies: Start date: 05/24/21 Start time: 09:31 Status: Acute Asessment and Plan: States cough x 4 weeks, dry with watery eyes and nasal dripping, likely allergies, no sputum production, lsc, will place on cetrizine. Defer to PCP if this becomes worse and turns into bronchitis. discussed with Dr. Black Discharge Plan Disposition Patient Disposition: HOME Condition: Stable Discharge Details Reason For Visit: Acute on Chronic Hypoatremia,Hypomagnesemia Admit Date/Time: 05/22/21 09:44 Admit Provider: Niesha Esteban Attending Provider: Niesha Esteban Primary Care Provider: [facility] Course Hospital Course: 81 y.o female presented to the ED for evaluation after being found hyponatremic. On outpatient labs her level was 121 day of admission; today it is 126. After graphing out her sodium level for the last 180 days this appears to be her baseline. She feels good. On admission she reported she has had generalized malaise and increased weakness over past week. She was pushing free water to stay hydrated but po intake otherwise was poor. She was holding her lasix as well. Therefore she was admitted to / for further management. She was placed on lasix with 1200 cc fluid restriction, with low sodium diet. She was placed back on her lasix. Sodium is stable at 126. She did have low mag on 05/23 of 1.7 with repletion of po; repeat today reveals 1.4. She feels good. Sodium is stable. She does have a dry cough that she states she has had x 4 weeks with no sputum, she does have watery eyes and nasal dripping with this as well; likely allergies. Will treat with zyrtec. She is being discharged home. Will have follow up labs in 4 days bmp and mag. Will place on po mag as outpatient along with cetirizine. Recommend take lasix daily and fluid restriction of 1200 cc, repeat labs and follow up with PCP in 1 week. Home Meds and New Rx's Prescriptions: New furosemide 20 mg Tablet 20 mg PO DAILY Qty: 30 RF: 0 magnesium chloride [Mag 64] 64 mg Tablet,Delayed Release (Dr/Ec) 64 mg PO BID Qty: 60 RF: 0 cetirizine 10 mg capsule 10 mg PO DAILY Qty: 30 RF: 0 Continued Women's Multivitamin Gummies 200 MCG tablet,chewable 200 mcg PO DAILY Qty: 150 RF: 6 thiamine mononitrate (vit B1) 100 MG tablet 100 mg PO DAILY RF: 0 PROVENTIL HFA 18 GM HFA.AER.AD 1 - 2 puff Inhalation [id number] PRNQty: 1 RF: 6 losartan 50 mg tablet 50 mg PO DAILY Qty: 90 RF: 4 levothyroxine 88 mcg tablet 88 mcg PO DAILY Qty: 90 RF: 2 albuterol sulfate 90 mcg/actuation HFA aerosol inhaler 2 puff IH QID PRN (Reason: shortness of breath or wheezing) Qty: 18 RF: 6 Breo Ellipta 100-25 mcg/dose blister with device 1 inh INHALATION DAILY Qty: 28 RF: 6 bisoprolol fumarate 5 mg tablet 5 mg PO DAILY Qty: 90 RF: 2 vitamin T75-wskgy acid 1,000-400 mcg Lozenge 1,000 heidi SUBLINGUAL DAILY RF: 0 acetaminophen [Mapap Extra Strength] 500 mg Tablet 1,000 mg PO TID Qty: 90 RF: 0 bisacodyl 10 mg Suppository 10 mg MS DAILY PRN PRN (Reason: Constipation) Qty: 5 RF: 0 Xarelto 15 mg tablet 15 mg PO QPM RF: 0 No Action doxycycline monohydrate 100 mg capsule 100 mg PO BID Qty: 14 RF: 0 Discharge Instructions Instructions: Furosemide (By mouth), Cetirizine (By mouth), Magnesium (By mouth), Hyponatremia (DC), Hypomagnesemia (DC), Fluid Restriction (DC) Additional Instructions: Take lasix daily, take magnesium twice daily, Stick to a 1200 ml fluid restriction Repeat your lab work in 4 days and follow up with your PCP in 1 week Take zyrtec (cetirizine) daily, as you have allergies, this can make you tired so you can take this in either the morning or the evening Stand Alone Forms: Nursing Discharge Form Activity:: Activity as Tolerated Equipment/Supplies:: No Equipment Needed Diet:: Low Sodium Discharge Orders Discharge Orders: Discharge Order (Routine); Ordered 05/24/21 Ordered By: Rekha Hall DS: Summary Time Spent with Patient providing and/or coordinating discharge services: Less than 30 minutes Status at Discharge Functional status at discharge: independent ambulation Overall status at discharge: patient is back to baseline Mental Status: mental status grossly normal Speech and Movement: speech and movement normal Mood: congruent mood Affect: normal affect Exam Const General: cooperative, comfortable, no acute distress and frail appearing (elderly female of stated age) Nutritional Appearance: average body habitus HENMT Head: normal to inspection, normocephalic and atraumatic Mouth: oral mucosae normal Eyes Eyelids: eyelids normal Pupils: PERRL EOM: EOM intact bilaterally Other: watery at times with cough Resp Effort & Inspection: normal respiratory effort and cough Quality of cough: dry Auscultation: clear to auscultation bilaterally Cardio Rate: regular rate Rhythm: abnormal rhythm GI Inspection: normal to inspection Palpation: soft and nontender Auscultation: normal bowel sounds Skin General skin exam: no rashes or lesions noted Extrem General: normal to inspection (chronic discoloration to bilateral lower extremities) and no pedal edema Psych Mental Status: mental status grossly normal Speech and Movement: speech and movement normal Mood: congruent mood Affect: normal affect DS: Data Vitals/I&O Vitals and I&O: Vital Signs Temperature 36.8 C 05/24/21 07:46 Temperature Source Tympanic 05/24/21 07:46 Pulse 79 05/24/21 07:46 Pulse Rhythm Irregular 05/24/21 04:00 Pulse 91 H 05/22/21 10:20 Respiratory Rate 20 05/24/21 07:46 Respiratory Effort Non-Labored 05/24/21 04:00 Respiratory Depth Normal 05/24/21 04:00 Respiratory Pattern Normal 05/24/21 04:00 Blood Pressure 116/66 05/24/21 07:46 Blood Pressure Mean 78 05/22/21 10:15 Blood Pressure Position Sitting 05/22/21 08:49 Pulse Oximetry 97 05/24/21 07:46 Oxygen Delivery Method Room Air 05/24/21 07:46 Oxygen Flow Rate 0 05/24/21 07:46 Pain Level 0 05/24/21 07:46 Comment 05/24/21 07:46 Intake & Output 05/23/21 05/23/21 05/24/21 11:59 23:59 11:59 Intake Total 287.5 / 487.5 200 / 487.5 Balance 287.5 / 487.5 200 / 487.5 Intake: IV 37.5 / 37.5 Oral 250 / 450 200 / 450 Other: Urine Color Yellow Yellow Yellow Urine Appearance Clear Clear Clear Urine Odor Normal Voiding Methods Bedside Commode Toilet Toilet Data Completed and Pending Labs on day of discharge: Labs from last 24 hours 0905/24/21 05/23/21 06:38 06:38 12:00 Sodium 126 L 126 L Potassium 4.0 Chloride 91 L Carbon Dioxide 29.1 Anion Gap 5.9 BUN 16 Creatinine 1.0 Estimated GFR/1.73 m2 53.08 Glucose 103 Calcium 9.0 Magnesium 1.4 L [facility] Medical History Acute on chronic systolic CHF (congestive heart failure) Anemia (08/19/01) Atrial fibrillation Cardioversion and Amiodarone in 2011: successfull but reverted 1 week later- amiodarone d/c /ON COUMADIN Cardiomyopathy unclear etiology/ EF as low as 25% in 2011-back up around 50% post a.fib. rate regulated and post infection/poss. A.Fib. 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 DAVID Sensorineural hearing loss, bilateral (02/05/14) Stroke Umbilical hernia Vitamin D deficiency, unspecified switched to PO vitamin B12 in February 2016 Surgical History Bilateral salpingectomy with oophorectomy Debridement, Soft Tissue (09/29/17) IRRIGATION AND DEBRIDEMENT LEFT HIP INCISION--PLACEMENT PF LANCE DRAIN ASPIRATION LEFT TKA Status post open reduction with internal fixation of fracture Total replacement of hip (07/08/11) LEFT Family History Mother , AGE 92 No problems noted. Father , AGE 92 Stroke Sister , AGE 93 No problems noted. Sister , AGE 89 No problems noted. Brother , AGE 90 Lung cancer Heart disease Brother , AGE 90 Heart disease Bone cancer Son Alcohol abuse Son , AT No problems noted. Son Alcohol abuse Daughter No problems noted. Daughter No problems noted. Daughter No problems noted. Maternal Grandfather Alcohol abuse Paternal Grandfather , age 100 No problems noted. Maternal Grandmother , age 82 No problems noted. Paternal Grandmother , age 100 No problems noted. Social History Smoking/Tobacco Use Status: Never Smoking risk assessment performed?: Yes Alcohol Intake: current Alcohol Intake frequency: a few times a week Alcohol type: hard liquor Drug use: Never Substance use type: does not use Caregiver/Support person: No Household members: none Communication Needs: Deaf and Corrective Lenses Do you need help understanding health information?: Often Pets and animals: No Sexually active: No What is your relationship status?: Do you belong to any clubs or organized social groups?: yes Panel score (0-1 are the most socially isolated patients): 1 Diane/Church: Bahai Seatbelt use: always Drive intox or ride w/intox tilt tray driver: No Do you feel safe at home: Yes Do you feel safe in your relationship?: Yes Victim of physical abuse: No Victim of emotional abuse: Yes Victim of sexual abuse: No Would you like helpful sources: No
[2021-05-24] MEDS: Cetirizine 10 MG TAB PO (10:07)
[2021-05-24] MEDS: Magnesium Oxide 400 MG TAB 800 MG PO (10:48)
[2021-05-24] MEDS: MAGNESIUM SULFATE 4 GM/100 ML BAG IVPB (10:48)
[2021-05-24] MEDS: Loperamide 2 MG CAP PO (11:53)
[2021-05-24 12:20] VITALS: BP 111/61; PULSE 79; RESP 16; TEMP 36.9; O2SAT 98
--- NOTE | 2021-05-24 17:26 | PDOC.CMDIS ---
- If Service Date Differs Date of service: 05/24/21 Time of Service: 17:27 LACE Index Scoring Tool - Questions: Length of Stay (in days): 2 Acuity (Admit via E.D.?): Yes Comorbidities: Congestive Heart Failure E.D. Visits: 3 - Answers: Total Score: 10 Risk of Readmission: High Risk Care Management Discharge Reason for Hospitalization: Acute on chronic hyponatremia, hypomagnesemia Discharge Plan: Reta will return home with no new services. She will be driven home via private vehicle by family. She will follow up with her PCP and discharge plan of care. Patient/Family Education Needs: Review discharge instructions, discuss Ask Me Three.
== END 2021-05-24 15:50 | disposition home or self-care (01) | DRG 641 ==
LOC: ER 09:18 → MS 10:43
PROVIDERS: Nurse Practitioner Family; Admitting Provider Internal Medicine; Emergency Provider Physician Assistant; PCP Family Medicine; Visit Provider Internal Medicine
DX: E87.1 Hypo-osmolality and hyponatremia (principal); I48.19 Other persistent atrial fibrillation; I42.9 Cardiomyopathy, unspecified; I50.22 Chronic systolic (congestive) heart failure; E83.42 Hypomagnesemia; I11.0 Hypertensive heart disease with heart failure; Z79.01 Long term (current) use of anticoagulants; E78.5 Hyperlipidemia, unspecified; H90.3 Sensorineural hearing loss, bilateral; Z20.822 Contact with and (suspected) exposure to COVID-19
CPT/HCPCS: 36415; 80048; 80053; 87635; 93005; 94640; 96361; 96365; 97161; 99285; 81003; 81015; 83735; 84295; 84443; 84484; 85025; 87086; 93010; 99223; 99232; 99238; 99284; J1941; J3475

== ENCOUNTER 2021-05-30 02:10 | Outpatient (CLI) | payer MEDICARE, MEDICAID, SELFPAY ==
[2021-05-30 12:20] LABS: Anion Gap 8.6 mmol/L (3-11); CO2 24.4 mmol/L (21.0-32.0); Chloride 92 mmol/L (98-107); Potassium 4.6 mmol/L (3.5-5.1); Sodium 125 mmol/L (136-145)
[2021-05-30 12:36] LABS: TSH 2.81 uIU/mL (0.36-3.74)
== END 2021-05-30 02:11 | disposition home or self-care (01) ==
PROVIDERS: Family Medicine; PCP Family Medicine; Visit Provider Family Medicine
DX: E03.9 Hypothyroidism, unspecified (principal); E87.1 Hypo-osmolality and hyponatremia
CPT/HCPCS: 36415; 80051; 84443

== ENCOUNTER 2021-06-06 01:17 | Outpatient (CLI) | payer MEDICARE, MEDICAID, SELFPAY ==
[2021-06-06 12:38] LABS: Magnesium 1.2 mg/dL (1.8-2.4)
[2021-06-06 12:41] LABS: Anion Gap 4.8 mmol/L (3-11); BUN 22 mg/dL (7-18); CO2 28.2 mmol/L (21.0-32.0); CREATININE 1.2 mg/dL (0.55-1.02); Calcium 9.2 mg/dL (8.5-10.1); Chloride 96 mmol/L (98-107); Estimated GFR 43.01 (mL/min/1.73m2); Glucose 92 mg/dL (74-106); Potassium 4.9 mmol/L (3.5-5.1); Sodium 129 mmol/L (136-145)
== END 2021-06-06 01:18 | disposition home or self-care (01) ==
LOC: LOS 01:18
PROVIDERS: PCP Family Medicine; Visit Provider Family Medicine
DX: E83.42 Hypomagnesemia (principal); E87.1 Hypo-osmolality and hyponatremia
CPT/HCPCS: 36415; 80048; 83735

== ENCOUNTER 2021-06-20 00:50 | Outpatient (CLI) | payer MEDICARE, SELFPAY ==
[2021-06-20 12:56] LABS: Anion Gap 6.2 mmol/L (3-11); BUN 11 mg/dL (7-18); CO2 29.8 mmol/L (21.0-32.0); Chloride 95 mmol/L (98-107); Estimated GFR 53.08 (mL/min/1.73m2); Glucose 114 mg/dL (74-106); Magnesium 1.4 mg/dL (1.8-2.4); Potassium 4.6 mmol/L (3.5-5.1); Sodium 131 mmol/L (136-145)
== END 2021-06-20 00:51 | disposition home or self-care (01) ==
LOC: LOS 00:50
PROVIDERS: PCP Family Medicine; Visit Provider Family Medicine
DX: E83.42 Hypomagnesemia; E87.1 Hypo-osmolality and hyponatremia
CPT/HCPCS: 36415; 80048; 83735

== ENCOUNTER 2021-09-25 03:56 | Outpatient (CLI) | payer MEDICARE, MEDICAID, SELFPAY ==
[2021-09-25 12:47] LABS: ALT 34 U/L (14-59); AST 44 U/L (15-37); Albumin 3.1 g/dL (3.4-5.0); Alkaline Phosphatase 105 U/L (46-116); Anion Gap 8.5 mmol/L (3-11); BUN 15 mg/dL (7-18); Bilirubin, Total 0.6 mg/dL (0.2-1.0); CO2 27.5 mmol/L (21.0-32.0); CREATININE 1.4 mg/dL (0.55-1.02); Calcium 8.5 mg/dL (8.5-10.1); Chloride 102 mmol/L (98-107); Glucose 102 mg/dL (74-106); Potassium 4.3 mmol/L (3.5-5.1); Sodium 138 mmol/L (136-145); Total Protein 7.2 g/dL (6.4-8.2)
== END 2021-09-25 03:57 | disposition home or self-care (01) ==
LOC: LBO 03:56
PROVIDERS: PCP Family Medicine; Visit Provider Family Medicine
DX: I10 Essential (primary) hypertension (principal); E83.42 Hypomagnesemia
CPT/HCPCS: 36415; 80053; 83735

== ENCOUNTER 2022-03-02 04:31 | Outpatient (CLI) | payer MEDICARE, MEDICAID, SELFPAY ==
[2022-03-02 13:20] LABS: ALT 17 U/L (14-59); AST 27 U/L (15-37); Albumin 2.6 g/dL (3.4-5.0); Alkaline Phosphatase 131 U/L (46-116); Anion Gap 6.5 mmol/L (3-11); BUN 10 mg/dL (7-18); Bilirubin, Total 0.7 mg/dL (0.2-1.0); CO2 28.5 mmol/L (21.0-32.0); CREATININE 0.9 mg/dL (0.55-1.02); Calcium 8.4 mg/dL (8.5-10.1); Chloride 102 mmol/L (98-107); Glucose 99 mg/dL (74-106); Potassium 3.9 mmol/L (3.5-5.1); Sodium 137 mmol/L (136-145); TSH (W/Ref FT4) 0.34 uIU/mL (0.36-3.74); Total Protein 6.7 g/dL (6.4-8.2)
== END 2022-03-02 04:32 | disposition home or self-care (01) ==
LOC: LOS 04:32
PROVIDERS: PCP Family Medicine; Visit Provider Family Medicine
DX: E03.9 Hypothyroidism, unspecified (principal); I10 Essential (primary) hypertension
CPT/HCPCS: 36415; 80053; 84439; 84443

== ENCOUNTER 2022-03-11 17:24 | Outpatient (REF) | payer MEDICARE, MEDICAID, SELFPAY ==
[2022-03-13 11:44] LABS: COVID-19 RT-PCR UVMMC Result Negative (Negative)
== END 2022-03-11 17:25 | disposition home or self-care (01) ==
LOC: LBN 17:24
PROVIDERS: PCP Family Medicine; Visit Provider Family Medicine
DX: Z20.822 Contact with and (suspected) exposure to COVID-19 (principal); J06.9 Acute upper respiratory infection, unspecified
CPT/HCPCS: U0003; U0005

== ENCOUNTER 2022-09-24 03:00 | Outpatient (CLI) | payer MEDICARE, MEDICAID, SELFPAY ==
[2022-09-24 12:38] LABS: Anion Gap 7.6 mmol/L (3-11); BUN 10 mg/dL (7-18); CO2 30.4 mmol/L (21.0-32.0); CREATININE 1.2 mg/dL (0.55-1.02); Calcium 7.8 mg/dL (8.5-10.1); Chloride 95 mmol/L (98-107); Estimated GFR 44.91 (mL/min/1.73m2); FREE T4 1.36 ng/dL (0.76-1.46); Glucose 94 mg/dL (74-106); Sodium 133 mmol/L (136-145); TSH 4.27 uIU/mL (0.36-3.74)
[2022-09-24 12:46] LABS: Potassium 2.9 mmol/L (3.5-5.1)
[2022-09-24 22:21] LABS: T3,Free 3.7 pg/mL (2.8-5.3)
== END 2022-09-24 03:01 | disposition home or self-care (01) ==
LOC: LOS 03:01
PROVIDERS: PCP Family Medicine; Visit Provider Family Medicine
DX: E03.9 Hypothyroidism, unspecified (principal); I10 Essential (primary) hypertension; R09.89 Other specified symptoms and signs involving the circulatory and respiratory systems
CPT/HCPCS: 36415; 80048; 84439; 84443; 84481

== ENCOUNTER 2022-09-28 03:29 | Outpatient (CLI) | payer MEDICARE, MEDICAID, SELFPAY ==
[2022-09-28 12:26] LABS: Potassium 4.4 mmol/L (3.5-5.1)
== END 2022-09-28 03:30 | disposition home or self-care (01) ==
LOC: LOS 03:29
PROVIDERS: PCP Family Medicine; Visit Provider Family Medicine
DX: I10 Essential (primary) hypertension (principal)
CPT/HCPCS: 36415; 84132

== ENCOUNTER 2022-12-27 09:49 | Observation (INO) | payer MEDICARE, MEDICAID, SELFPAY ==
[2022-12-27] VITALS (46 sets, daily range): BP systolic 93–156; BP diastolic 48–108; PULSE 90–138; RESP 15–19; TEMP 36.5–37.4; O2SAT 80–99
--- NOTE | 2022-12-27 09:45 | RT.EKG_ITS ---
APPROVED REPORT Exam: Resting ECG Reason for Exam: SOB Patient Location: E HR:114 bpm ECG Measurements Heart Rate 114 AXIS AL [id number] P [id number] QRSd 87 QRS 101 QT 365 T 2 QTc 504 Conclusion Atrial fibrillation...? atrial activity Paired ventricular premature complexes...sequence of 2 V complexes Low voltage, extremity and precordial leads...extremity<0.5mV, precordial<1.0mV Consider anterior infarct...Q >30mS in V2-V5 Prolonged QT interval...QTc >500mS Physician: no stemi, unchanged from prior ekg on 05/22/2021
--- NOTE | 2022-12-27 10:00 | DI.RAD_ITS ---
Exam(s) XR PORTABLE CHEST AP EXAM: XR PORTABLE CHEST AP CLINICAL HISTORY: crackles, eval for pneumonia TECHNIQUE: 2D digital imaging was performed of the chest. One image was obtained. An AP view was ob tained. COMPARISON: CR,XR XR CHEST 2V PA LATERAL from 05/08/2021 FINDINGS: MEDIASTINUM: Normal. HEART: Mild cardiomegaly. PULMONARY VASCULATURE: Atherosclerosis is present. LUNGS: There are some increased lung markings in the left perihilar region. There is blunting of the left costophrenic angle which may represent a small pleural effusion. PLEURAL SPACE: No right pleural effusion or pneumothorax. BONE:Within normal limits for the patient's age. OTHER FINDINGS:Normal. IMPRESSION: Left perihilar infiltrate and small left pleural effusion. DATA REPOSITORY: RADIATION DOSE DELIVERED:
--- NOTE | 2022-12-27 10:18 | ED.GENADUL_ITS ---
Discharge Plan Disposition Patient Disposition: Admit to [facility] Discharge Details Chief Complaint: RespSymp Clinical Impression: Pneumonia Primary Care Provider: Chitra Martinez ED Provider: Josh Jackson Home Meds and New Rx's Prescriptions: No Action ascorbic acid (vitamin C) 500 mg tablet 500 mg PO DAILY Women's Multivitamin Gummies 200 MCG tablet,chewable 200 mcg PO DAILY Qty: 150 thiamine mononitrate (vit B1) 100 MG tablet 100 mg PO DAILY Mag 64 64 mg tablet,delayed release (DR/EC) 64 mg PO BID Qty: 60 2RF losartan 50 mg tablet See Rx Instructions .ROUTE .COMPLEX Qty: 90 3RF Dose Instruction: TAKE 1 TABLET BY MOUTH DAILY Rx Instructions: TAKE 1 TABLET BY MOUTH DAILY rivaroxaban 15 mg tablet 15 mg PO QPM Qty: 30 11RF Rx Instructions: must administer with evening meal cetirizine 10 mg capsule 10 mg PO DAILY Qty: 90 4RF fluticasone furoate-vilanterol [Breo Ellipta] 100-25 mcg/dose blister with device 1 inh INHALATION DAILY Qty: 28 12RF levothyroxine 88 mcg tablet 88 mcg PO DAILY Qty: 90 3RF bisoprolol fumarate 5 mg tablet 7.5 mg PO DAILY Qty: 135 3RF furosemide 20 mg tablet 20 mg PO DAILY PRN (Reason: edema) Qty: 30 0RF Hold Instructions: Home Medication placed on hold at Doctor's office potassium chloride 20 mEq/15 mL liquid 20 meq PO DAILY PRN (Reason: when using furosemide) Qty: 450 12RF albuterol sulfate [Ventolin HFA] 90 mcg/actuation HFA aerosol inhaler 2 puff inhalation QID PRN (Reason: shortness of breath or wheezing) Qty: 18 2RF vitamin [id number] acid 1,000-400 mcg Lozenge 1,000 heidi SUBLINGUAL DAILY acetaminophen [Mapap Extra Strength] 500 mg Tablet 1,000 mg PO TID Qty: 90 0RF Medical Decision Making This is an 82-year-old female with a past medical history of stroke/TIA, atrial fibrillation on rivaroxaban and bisoprolol, hypertension, high cholesterol, hypothyroidism, who presents today for evaluation of cough. Patient states that for the last week she has had a cough, congestion, mild diarrhea, mild nausea, intermittent episodes of vomiting, and weakness. Cough has been worsening, and she now has productive green and recinos chunky sputum. She admits to fevers at home. She does live alone. She has received her COVID vaccine. She denies any blood in her stool. She denies any abdominal pain or chest pain. She denies any falls. No other complaints at this time. No other modifying factors. Physical exam demonstrates dry mucous membranes, notably nontender abdomen, crackles and rhonchi are noted in the lungs worse on the right than the left. Concern for pneumonia. Symptoms appear inconsistent with obstruction. Pancreatitis potential but less likely. Patient feels that the episodes of vomiting have been associated with her cough and gagging rather than actual nauseous vomiting. We will evaluate for infectious etiology, start antibiotics of ceftriaxone and azithromycin, monitor closely and reassess. With her age, comorbidities and risk factors I do feel that she would be candidate for admission. 1255 CT laboratory work-up has returned demonstrates a WBC count of 12, mild left shift, electrolytes slightly off but otherwise stable. Troponin normal, COVID flu and RSV negative, free T4 slightly elevated. Lipase normal. proBNP is surprisingly high at 20,000, however clinically the patient does not look fluid overloaded on my assessment. I will hold off on any diuretics at this time. Chest x-ray shows evidence of pneumonia which was clinically expected. The patient has already received 2 g of ceftriaxone and 500 mg of azithromycin. We did try to get the patient up and ambulate her, however she was notably weak during this trial, and had some certain difficulty. I do feel that with the patient's age and comorbidities she would be a good candidate for admission. I contacted the hospitalist and discussed the case with him. agrees with the assessment and plan. I have extensively reviewed the treatment plan with the patient. I have addressed all patient concerns at this time. I have also discussed the plan with the admitting physician and they agree with the current assessment and plan and have agreed to assume responsibility for the patient. All parties demonstrate verbal understanding and agreement with our assessment and plan at this time. The documentation in this chart was dictated using [employer] dictation software. Please excuse any dictation errors. FINDINGS: Lungs: The lungs are normally aerated. Increase in the interstitial markings with peribronchiolar thickening in the left lower lobe consistent with bronchitis or early pneumonia. No lobar consolidations. The pulmonary vascularity is within normal limits. Pleural spaces: Tiny bilateral pleural effusions. No pneumothorax. Heart/Mediastinum: Mild cardiac enlargement of the has a left ventricular configuration similar to the prior examination the aorta is normal in diameter and has calcification arch area. Bones/joints: Mild degenerative changes of the osseous structures. IMPRESSION: 1. Airspace disease developing in the left lower lobe. 2. Tiny bilateral pleural effusions. Thank you for allowing us to participate in the care of your patient. Dictated and Authenticated by: Colt Jacobo MD 12/27/2022 10:54 AM Eastern Time ([place] & [place]) HPI General Date/Time Provider Initiated Documentation: 12/27/22 09:52 . HPI Narrative: This is an 82-year-old female with a past medical history of stroke/TIA, atrial fibrillation on rivaroxaban and bisoprolol, hypertension, high cholesterol, hypothyroidism, who presents today for evaluation of cough. Patient states that for the last week she has had a cough, congestion, mild diarrhea, mild nausea, intermittent episodes of vomiting, and weakness. Cough has been worsening, and she now has productive green and recinos chunky sputum. She admits to fevers at home. She does live alone. She has received her COVID vaccine. She denies any blood in her stool. She denies any abdominal pain or chest pain. She denies any falls. No other complaints at this time. No other modifying factors. Related Data Home Medications Medication Instructions Recorded Confirmed multivitamin with minerals-folic 200 mcg PO DAILY ##150 06/01/16 12/27/22 acid 200 mcg chewable tablet (Women's Multivitamin Gummies) thiamine mononitrate (vit B1) 100 100 mg PO DAILY 11/24/17 12/27/22 mg tablet vitamin B12 1,000 mcg-folic acid 1,000 heidi sublingual DAILY 10/20/19 12/27/22 400 mcg sublingual lozenge acetaminophen 500 mg tablet (Mapap 1,000 mg PO TID #90 tabs 10/23/19 12/27/22 Extra Strength) magnesium chloride 64 mg 64 mg PO BID #60 tabs 08/27/21 12/27/22 (magnesium chloride) tablet,delayed release (Mag 64) ascorbic acid (vitamin C) 500 mg 500 mg PO DAILY 09/08/21 12/27/22 tablet losartan 50 mg tablet See Rx Instructions .Route 11/19/21 12/27/22 .COMPLEX #90 tabs cetirizine 10 mg capsule 10 mg PO DAILY #90 caps 01/12/22 12/27/22 rivaroxaban 15 mg tablet 15 mg PO QPM #30 tabs 01/12/22 12/27/22 fluticasone furoate 100 1 inh inhalation DAILY #28 ea 01/19/22 12/27/22 mcg-vilanterol 25 mcg/dose inhalation powder (Breo Ellipta) levothyroxine 88 mcg tablet 88 mcg PO DAILY #90 tabs 02/17/22 12/27/22 bisoprolol fumarate 5 mg tablet 7.5 mg PO DAILY #135 tabs 06/19/22 12/27/22 furosemide 20 mg tablet 20 mg PO DAILY PRN edema #30 tabs 10/05/22 12/27/22 potassium chloride 20 mEq/15 mL 20 meq (15 mL) PO DAILY PRN when 11/10/22 12/27/22 oral liquid using furosemide #450 mL Ventolin HFA 90 mcg/actuation 2 puff inhalation QID PRN 12/23/22 12/27/22 aerosol inhaler (albuterol sulfate) shortness of breath or wheezing #18 grams Previous Rx's Medication Instructions Recorded acetaminophen 500 mg tablet (Mapap 1,000 mg PO TID #90 tabs 10/23/19 Extra Strength) magnesium chloride 64 mg 64 mg PO BID #60 tabs 08/27/21 (magnesium chloride) tablet,delayed release (Mag 64) losartan 50 mg tablet See Rx Instructions .Route 11/19/21 .COMPLEX #90 tabs cetirizine 10 mg capsule 10 mg PO DAILY #90 caps 01/12/22 rivaroxaban 15 mg tablet 15 mg PO QPM #30 tabs 01/12/22 fluticasone furoate 100 1 inh inhalation DAILY #28 ea 01/19/22 mcg-vilanterol 25 mcg/dose inhalation powder (Breo Ellipta) levothyroxine 88 mcg tablet 88 mcg PO DAILY #90 tabs 02/17/22 bisoprolol fumarate 5 mg tablet 7.5 mg PO DAILY #135 tabs 06/19/22 furosemide 20 mg tablet 20 mg PO DAILY PRN edema #30 tabs 10/05/22 potassium chloride 20 mEq/15 mL 20 meq (15 mL) PO DAILY PRN when 11/10/22 oral liquid using furosemide #450 mL Ventolin HFA 90 mcg/actuation 2 puff inhalation QID PRN 12/23/22 aerosol inhaler (albuterol sulfate) shortness of breath or wheezing #18 grams Allergies Allergy/AdvReac Type Severity Reaction Status Date / Time sulfamethoxazole AdvReac Mild NAUSEA Verified 12/27/22 10:01 trimethoprim AdvReac Mild NAUSEA Verified 12/27/22 10:01 MELISSA Inhibitors AdvReac Unknown RENAL Verified 12/27/22 10:01 INSUFFIENCIENCY benazepril AdvReac Unknown Verified 12/27/22 10:01 lovastatin AdvReac Unknown LIGHTHEADED Verified 12/27/22 10:01 NESS methyldopa AdvReac Unknown Verified 12/27/22 10:01 simvastatin [From Zocor] AdvReac Unknown BODY ACHES Verified 12/27/22 10:01 W/ HIGHER DOSES General Stated Complaint: RespSymp ERNESTO: 3 Review of Systems All systems reviewed & are unremarkable except as noted in HPI and below PFSH All Active Problems Pneumonia (Acute) Atrial fibrillation (Chronic) Cardioversion and Amiodarone in 2012: successfull but reverted 1 week later- amiodarone Xarelto for stroke prophylaxis Essential hypertension (Chronic 06/20/13) Hyperlipidemia (Chronic) Hypothyroidism (Chronic) Cardiomyopathy (Chronic) unclear etiology/ EF as low as 25% in 2011-back up around 50% post a.fib. rate regulated and post infection/poss. A.Fib. 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 DAVID Umbilical hernia Vitamin D deficiency, unspecified switched to PO vitamin B12 in February 2016 Surgical History Bilateral salpingectomy with oophorectomy Debridement, Soft Tissue (09/29/17) IRRIGATION AND DEBRIDEMENT LEFT HIP INCISION--PLACEMENT PF LANCE DRAIN ASPIRATION LEFT TKA Status post open reduction with internal fixation of fracture Total replacement of hip (07/08/11) LEFT Family History Mother , AGE 92 No problems noted. Father , AGE 92 Stroke Sister , AGE 93 No problems noted. Sister , AGE 89 No problems noted. Brother , AGE 90 Lung cancer Heart disease Brother , AGE 90 Heart disease Bone cancer Son Alcohol abuse Son , AT No problems noted. Son Alcohol abuse Daughter No problems noted. Daughter No problems noted. Daughter No problems noted. Maternal Grandfather Alcohol abuse Paternal Grandfather , age 100 No problems noted. Maternal Grandmother , age 82 No problems noted. Paternal Grandmother , age 100 No problems noted. 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 Pets and animals: No Sexually active: No Do you think of yourself as: straight/heterosexual Current gender identity: female What is your relationship status?: How often do you talk on the phone with friends or family?: three or more times per week How often do you get together with friends or relatives?: three or more times per week How often do you attend orthodoxy or jehovah's witness services?: 1-3 times per year Do you belong to any clubs or organized social groups?: yes Panel score (0-1 are the most socially isolated patients): 2 What type of physical activity do you participate in: walking Duration: 15-30 minutes/day Frequency: daily Diane/Spiritism: Temple Special diane needs: No Seatbelt use: always Drive intox or ride w/intox front end loader driver: No Do you feel safe at home: Yes Do you feel safe in your relationship?: Yes Victim of physical abuse: No Victim of emotional abuse: Yes Victim of sexual abuse: No Would you like helpful sources: No Exam Narrative Exam Narrative: 1.Const: Well-nourished, Well-developed, appearing stated age 2.Eyes: PERRL, no conjunctival injection, and symmetrical lids. 3.ENT: Atraumatic external nose and ears. Dry MM. Neck: Symmetric, trachea midline, No thyromegaly. 4.CVS: +S1/S2, No murmurs or gallops. Peripheral pulses 2+ and equal in all extremities. Brisk capillary refill in all extremities. 5.RESP: Unlabored respiratory effort. Crackles and rhonchi throughout. 6.GI: Soft, Nontender/Nondistended, No hepatosplenomegaly. No guarding or rebound. 7.MSK: Normocephalic/Atraumatic, Extremities w/o deformity or ttp No cyanosis or clubbing, Normal movement of all extremities 8.Skin: Warm, Dry. No rashes or lesions. 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 Sensation grossly intact, no focal neurologic deficits. 10.Psych: (AAO) x3. Appropriate mood and affect Course Vital Signs Vital signs: Vital Signs Pulse 134 H 12/27/22 09:57 Respiratory Rate 18 12/27/22 09:57 Blood Pressure 153/97 H 12/27/22 09:57 Pulse Oximetry 97 12/27/22 09:57 Pulse 134 H 12/27/22 09:57 Respiratory Rate 18 12/27/22 09:57 Respiratory Effort Normal 12/27/22 10:10 Blood Pressure 153/97 H 12/27/22 09:57 Blood Pressure Position Supine 12/27/22 09:57 Pulse Oximetry 97 12/27/22 09:57 Oxygen Delivery Method Room Air 12/27/22 09:57 Oxygen Flow Rate 0 12/27/22 09:57 Pain Level 0 12/27/22 09:57 Lab/Test Results Lab/Test Results: 12/27/22 10:06 Blood Blood Culture - Pending 12/27/22 10:06 Blood Blood Culture - Pending PAWSS Have you Been Recently Intoxicated or Drunk Within the Last 30 days?: No Have you Ever Experienced Previous Episodes of Alcohol Withdrawal?: No Have you ever Experienced Withdrawal Seizures?: No Have you ever Experienced Delirium Tremens(DT)s?: No Have you ever undergone Alcohol Rehabilitation Treatment (i.e, inpt ot outpatient treatment programs)?: No Have you ever Experienced Blackouts?: No Have you ever Combined Alcohol with other Downers within the last 90 days?: No Have you ever Combined Alcohol with any other Substance of Abuse during the last 90 days?: No Positive Blood Alcohol level on Presentation? [PCS.BAL]: No Evidence of Increased Autonomic Activity (i.e. HR>120, tremor, sweating, agitation, nausea)?: No Result: 0
[2022-12-27 10:44] LABS: Abs Immature Grans 0.05 10^3/uL (0.0-0.06); Absolute Basophil Count 0.05 10^3/uL (0.0-0.2); Absolute Monocyte Count 0.78 10^3/uL (0.1-0.8); BE (Venous) 0 mmol/L (-2-3); Basophils % 0.4; Eosinophils % 0.2; HCO3 (Venous) 26 mmol/L (23-28); HCT 42.4 % (36.0-46.0); HGB 14.2 g/dL (11.2-15.7); Immature Grans % 0.4; Lymphocytes % 14.1; MCH 34.4 pg (27.0-33.0); MCHC 33.5 % (32.0-36.0); MCV 103 fL (80-95); MPV 10.8 fL (8.0-11.0); Monocytes % 6.3; Neutrophils % 78.6; O2 Sat (Venous) 49 %; Platelet Count 163 10^3/uL (130-400); RBC 4.13 10^6/uL (3.93-5.22); RDW 13.5 % (11.7-14.6); RDW-SD 51.3 fL; TCO2 (Venous) 24 mmol/L (24-29); WBC 12.37 10^3/uL (4.4-10.8); pCO2 (Venous) 49 mmHg (41-51); pH (Venous) 7.33 (7.31-7.41); pO2 (Venous) 29 mmHg
[2022-12-27 10:49] LABS: Absolute Eosinophil Count 0.02 10^3/uL (0.0-0.7); Absolute Lymphocyte Count 1.74 10^3/uL (1.2-3.4); Absolute Neutrophil Count 9.72 10^3/uL (1.2-6.7)
[2022-12-27] MEDS: Normal Saline 500 ML IV (10:55)
[2022-12-27] MEDS: cefTRIAXone 2 GM/50 ML BAG IVPB (10:55)
--- NOTE | 2022-12-27 10:55 | DI.VRAD_ITS ---
PROCEDURE INFORMATION: Exam: XR Chest Exam date and time: 12/27/2022 10:23 AM Age: 82 years old Clinical indication: Other: Crackles, eval for pneumonia TECHNIQUE: Imaging protocol: Radiologic exam of the chest. Views: 1 view. COMPARISON: CR XR CHEST 2V PA LATERAL 05/08/2021 1:52 AM FINDINGS: Lungs: The lungs are normally aerated. Increase in the interstitial markings with peribronchiolar thickening in the left lower lobe consistent with bronchitis or early pneumonia. No lobar consolidations. The pulmonary vascularity is within normal limits. Pleural spaces: Tiny bilateral pleural effusions. No pneumothorax. Heart/Mediastinum: Mild cardiac enlargement of the has a left ventricular configuration similar to the prior examination the aorta is normal in diameter and has calcification arch area. Bones/joints: Mild degenerative changes of the osseous structures. IMPRESSION: 1. Airspace disease developing in the left lower lobe. 2. Tiny bilateral pleural effusions. Dictated and Authenticated by: Colt Jacobo MD. Ordering:PANKAJ Moreno MD
[2022-12-27 11:04] LABS: INR 1.7 (0.9-1.1); PTT Activated 37.2 sec (21.5-31.9); Prothrombin Time 17.2 sec (9.3-11.0)
[2022-12-27 11:09] LABS: ALT 17 U/L (14-59); AST 30 U/L (15-37); Albumin 3.4 g/dL (3.4-5.0); Alkaline Phosphatase 133 U/L (46-116); Anion Gap 11.3 mmol/L (3-11); BUN 8 mg/dL (7-18); Bilirubin, Total 1.6 mg/dL (0.2-1.0); CO2 25.7 mmol/L (21.0-32.0); CREATININE 1.1 mg/dL (0.55-1.02); Calcium 8.7 mg/dL (8.5-10.1); Chloride 93 mmol/L (98-107); Estimated GFR 49.86 (mL/min/1.73m2); Glucose 116 mg/dL (74-106); Lipase 22 U/L (16-77); Potassium 3.8 mmol/L (3.5-5.1); Sodium 130 mmol/L (136-145); Total Protein 8.3 g/dL (6.4-8.2); Troponin I < 50 ng/L (<or=60)
[2022-12-27 11:16] LABS: NT-proBNP 20280 pg/mL (<300)
[2022-12-27] MEDS: AZITHROMYCIN 500 MG in Normal Saline 250 ML 250 MG IVPB (11:24)
[2022-12-27 11:38] LABS: FREE T4 1.81 ng/dL (0.76-1.46)
[2022-12-27 12:28] LABS: COVID-19 PCR Negative (Negative); Influenza A PCR Negative (Negative); Influenza B PCR Negative (Negative); RSV PCR Negative (Negative)
[2022-12-27 12:31] LABS: Source Nasopharynx
[2022-12-27 13:40] LABS: Troponin I < 50 ng/L (<or=60)
[2022-12-27 16:20] LABS: Bilirubin Small (Negative); Blood Negative (Negative); Clarity Clear (Clear); Glucose Negative (Negative); Ketones Negative (Negative); Leukocyte Esterase Negative (Negative); Nitrite Negative (Negative); Specific Gravity 1.025 (1.005-1.025); pH 6.5 (5-8)
[2022-12-27 16:28] LABS: Epithelial Cells Many HPF (Negative); WBC 0-2 HPF (0-5)
[2022-12-27 16:29] LABS: Bacteria Negative HPF (Negative); C & S Indicated? No; Casts Negative LPF (Negative); Crystals Negative HPF (Negative); Mucus Negative (Negative); Other Cells Few Renal (Negative)
--- NOTE | 2022-12-27 16:35 | HPE_ITS ---
Date of service: 12/27/22 Time of Service: 16:36 Assessment and Plan Assessment and plan (1) Pneumonia: Status: Acute Assessment and plan: patient will be treated w/ ceftriaxone 2 gm daily along w/ azithromcyin 250 mg daily. She received her first dose while in the ER. If she continues to improve in her level of dyspnea and her ambulatory pulse oximetry test is ok tomorrow and P.T. clears her, then she can return home to finish a 7 day course of antibiotics. I will order xopenex inhaler to be used prn dyspnea or wheezing Professional time spent interviewing and examining patient, discussion of goals of care with hospital team (care management, nursing and consulting professionals) was 60 minutes. (2) Asthma: Status: Chronic Assessment and plan: continue home maintenance meds of Symbicort and I have ordered xopenex inhaler prn. I do not think she is having an asthma exacerbation but given her bilateral B lines I think she has some CHF superimposed on her pneumonia. If she is not improving w/ diuretics overnight then she may need a short burst of steroids. (3) Cardiomyopathy: Status: Chronic Assessment and plan: patient only takes her lasix when she gets leg edema. She has not used her lasix lately. However, she has bilateral rales in addition to her wheezes and she has small left pleural effusion and she has bilateral basilar B lines on US. I will give her lasix iv tonight and see what diuresis response she gets. Qualifiers: Cardiomyopathy type: unspecified Qualified Code(s): I42.9 - Cardiomyopathy, unspecified (4) Atrial fibrillation: Status: Chronic Assessment and plan: controlled rate and currently anticoagulated. continue bisoprolol and Xarelto Qualifiers: Atrial fibrillation type: persistent (not longstanding) Qualified Code(s): I48.19 - Other persistent atrial fibrillation (5) Chronic anticoagulation: Status: Acute (6) Essential hypertension: Status: Chronic Assessment and plan: continue bisoprolol and losartan (7) Hyperlipidemia: Status: Chronic Assessment and plan: not currently on treatment; will defer to PCP to follow up (8) Hypothyroidism: Status: Chronic Assessment and plan: continue current dose of levothryoxine although her current TSH is a little high at 4.3 nevertheless her free T4 is high at 1.81. I would defer to PCP to follow up. History of Present Illness History of Present Illness Chief Complaint: shortness of breath, cough productive of green mucous Narrative: 82 yr old female nonsmoker w/ hx of chronic afib anticoagulated w/ Xarelto, rate controlled w/ bisoprolol who developed cold like symptoms about one week ago w/ sneezing, post nasal drainage, scratchy throat but for past couple days has had incresed cough now productive of green mucous. No fevers or rigors. She was c oncerned she might be getting pneumonia. She has had her COVID vaccines as well as her influenza and pneumonia vaccines. She has not had a bronchitis for couple years now. In the ER she was not hypoxic but CXR demonstrated left perihilar infiltrate and small pleural effusion. CBC demonstrated WBC 12,300. VBG was unremarkable. CMP sodium 130, chloride 93, normal BUN 8, and creatinine 1.1. BNP 20,280, troponin <50 x 2 sets. UA >300 mg/dL protein, negative nitrites, leukocyte esterase or bacteria. Patient was given 500 mL saline bolus iv fluid, ceftriaxone 2 gm IVPB and azithromyci 500 mg IVPB. ED personnel tried ambulating her but she was too weak to return home. Dr. Jackson advised admission on observation for more antibiotics, pulmonary toiletry, P.T. consult in the a.m. Patient states she now feels much but still weak. She is ambulating w/ a walker w/ SBA. She still gets dyspneic w/ activity. Her comorbidities include cardiomyopathy (last echo @ [facility] 08/22/20, normal LV size and thickness w/ LVEF 55% w/ no RWMA, but borderline dilated RV w/ normal RV systolic fxn, moderate biatrial dilatation, no AI or , mild MAC w/ mild MR, mild to mod. TR w/ RVSP 32 mm, trace PI, dilated ascending aorta 3.5 cm. She also has HTN, HLD, hypothyroidism, former alcohol abuse but has been ab stinent, s/p L NIKKIE. Review of Systems All systems reviewed & are unremarkable except as noted in HPI and below PFSH All Active Problems Pneumonia (Acute) Atrial fibrillation (Chronic) Cardioversion and Amiodarone in 2012: successfull but reverted 1 week later- amiodarone Xarelto for stroke prophylaxis Essential hypertension (Chronic 06/20/13) Hyperlipidemia (Chronic) Hypothyroidism (Chronic) Cardiomyopathy (Chronic) unclear etiology/ EF as low as 25% in 2011-back up around 50% post a.fib. rate regulated and post infection/poss. A.Fib. 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 DAVID Umbilical hernia Vitamin D deficiency, unspecified switched to PO vitamin B12 in February 2016 Surgical History Bilateral salpingectomy with oophorectomy Debridement, Soft Tissue (09/29/17) IRRIGATION AND DEBRIDEMENT LEFT HIP INCISION--PLACEMENT PF LANCE DRAIN ASPIRATION LEFT TKA Status post open reduction with internal fixation of fracture Total replacement of hip (07/08/11) LEFT Family History Mother , AGE 92 No problems noted. Father , AGE 92 Stroke Sister , AGE 93 No problems noted. Sister , AGE 89 No problems noted. Brother , AGE 90 Lung cancer Heart disease Brother , AGE 90 Heart disease Bone cancer Son Alcohol abuse Son , AT No problems noted. Son Alcohol abuse Daughter No problems noted. Daughter No problems noted. Daughter No problems noted. Maternal Grandfather Alcohol abuse Paternal Grandfather , age 100 No problems noted. Maternal Grandmother , age 82 No problems noted. Paternal Grandmother , age 100 No problems noted. 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 Pets and animals: No Sexually active: No Do you think of yourself as: straight/heterosexual Current gender identity: female What is your relationship status?: How often do you talk on the phone with friends or family?: three or more times per week How often do you get together with friends or relatives?: three or more times per week How often do you attend anabaptism or synagogue services?: 1-3 times per year Do you belong to any clubs or organized social groups?: yes Panel score (0-1 are the most socially isolated patients): 2 What type of physical activity do you participate in: walking Duration: 15-30 minutes/day Frequency: daily Diane/Mosque: Nondenominational Special diane needs: No Seatbelt use: always Drive intox or ride w/intox otr van cdl truck driver: No Do you feel safe at home: Yes Do you feel safe in your relationship?: Yes Victim of physical abuse: No Victim of emotional abuse: Yes Victim of sexual abuse: No Would you like helpful sources: No Meds Allergies and Home Medications Allergies Allergy/AdvReac Type Severity Reaction Status Date / Time sulfamethoxazole AdvReac Mild NAUSEA Verified 12/27/22 10:01 trimethoprim AdvReac Mild NAUSEA Verified 12/27/22 10:01 MELISSA Inhibitors AdvReac Unknown RENAL Verified 12/27/22 10:01 INSUFFIENCIENCY benazepril AdvReac Unknown Verified 12/27/22 10:01 lovastatin AdvReac Unknown LIGHTHEADED Verified 12/27/22 10:01 NESS methyldopa AdvReac Unknown Verified 12/27/22 10:01 simvastatin [From Zocor] AdvReac Unknown BODY ACHES Verified 12/27/22 10:01 W/ HIGHER DOSES Home Medications Medication Instructions Recorded Confirmed Type multivitamin with minerals-folic 200 mcg PO DAILY ##150 06/01/16 12/27/22 History acid 200 mcg chewable tablet (Women's Multivitamin Gummies) thiamine mononitrate (vit B1) 100 100 mg PO DAILY 11/24/17 12/27/22 History mg tablet vitamin B12 1,000 mcg-folic acid 1,000 heidi sublingual DAILY 10/20/19 12/27/22 History 400 mcg sublingual lozenge acetaminophen 500 mg tablet (Mapap 1,000 mg PO TID #90 tabs 10/23/19 12/27/22 Rx Extra Strength) magnesium chloride 64 mg 64 mg PO BID #60 tabs 08/27/21 12/27/22 Rx (magnesium chloride) tablet,delayed release (Mag 64) ascorbic acid (vitamin C) 500 mg 500 mg PO DAILY 09/08/21 12/27/22 History tablet losartan 50 mg tablet See Rx Instructions .Route 11/19/21 12/27/22 Rx .COMPLEX #90 tabs cetirizine 10 mg capsule 10 mg PO DAILY #90 caps 01/12/22 12/27/22 Rx rivaroxaban 15 mg tablet 15 mg PO QPM #30 tabs 01/12/22 12/27/22 Rx fluticasone furoate 100 1 inh inhalation DAILY #28 ea 01/19/22 12/27/22 Rx mcg-vilanterol 25 mcg/dose inhalation powder (Breo Ellipta) levothyroxine 88 mcg tablet 88 mcg PO DAILY #90 tabs 02/17/22 12/27/22 Rx bisoprolol fumarate 5 mg tablet 7.5 mg PO DAILY #135 tabs 06/19/22 12/27/22 Rx furosemide 20 mg tablet 20 mg PO DAILY PRN edema #30 tabs 10/05/22 12/27/22 Rx potassium chloride 20 mEq/15 mL 20 meq (15 mL) PO DAILY PRN when 11/10/22 12/27/22 Rx oral liquid using furosemide #450 mL Ventolin HFA 90 mcg/actuation 2 puff inhalation QID PRN 12/23/22 12/27/22 Rx aerosol inhaler (albuterol sulfate) shortness of breath or wheezing #18 grams Exam Narrative Exam Narrative: Elderly female sitting in her chair in her room, fully clothed in her own street clothes, alert and oriented x 3 HEENT: unremarkable except poor dentition Neck: no overt JVD, normal carotid pulses other than irregular rhythm Lungs: diffuse bilateral upper and lower zone lung wheezes and rales Heart: irregularly irregular, no murmur Abdomen: obese, soft, nontender legs: she has some scars over right pretibial surface, but no edema; left leg likewise is without edema Results Imaging Chest x-ray: report reviewed and image reviewed Additional studies: limited POCUS of her lungs reveals bilateral predominantly basilar B lines and small left pleural effusion; upper bates w/ normal A line pattern EKG: image reviewed Labs 12/27/22 10:30 12/27/22 10:30 Labs: Laboratory Results - last 24 hr 12/27/22 12/27/22 12/27/22 10:30 10:30 10:30 WBC 12.37 H RBC 4.13 Hgb 14.2 Hct 42.4 MCV 103 H MCH 34.4 H MCHC 33.5 RDW 13.5 Plt Count 163 MPV 10.8 Immature Gran % 0.4 Neutrophils % 78.6 Lymphocytes % 14.1 Monocytes % 6.3 Eosinophils % 0.2 Basophils % 0.4 Nucleated RBC % 0.0 Absolute Neutrophils 9.72 H Absolute Lymphocytes 1.74 Absolute Monocytes 0.78 Absolute Eosinophils 0.02 Absolute Basophils 0.05 PT 17.2 H INR 1.7 H APTT 37.2 H VBG pH VBG pCO2 VBG pO2 VBG HCO3 VBG Total CO2 VBG O2 Saturation VBG Base Excess Sodium 130 L Potassium 3.8 Chloride 93 L Carbon Dioxide 25.7 Anion Gap 11.3 H BUN 8 Creatinine 1.1 H Est GFR (CKD-EPI 2020) 49.86 Glucose 116 H Calcium 8.7 Total Bilirubin 1.6 H AST 30 ALT 17 Alkaline Phosphatase 133 H Troponin I < 50 NT-Pro-B Natriuret Pep Total Protein 8.3 H Albumin 3.4 Lipase 22 TSH Free T4 Urine Color Urine Clarity Urine pH Ur Specific [place] Urine Protein Urine Ketones Urine Blood Urine Nitrite Urine Bilirubin Urine Urobilinogen Ur Leukocyte Esterase Urine RBC Urine WBC Ur Epithelial Cells Urine Crystals Urine Bacteria Urine Casts Urine Mucus Urine Other Ur Culture Indicated? Urine Glucose COVID-19 Source SARS-CoV-2 (PCR) Influenza Type A (PCR) Influenza Type B (PCR) RSV (PCR) 12/27/22 12/27/22 12/27/22 10:30 10:30 10:30 WBC RBC Hgb Hct MCV MCH MCHC RDW Plt Count MPV Immature Gran % Neutrophils % Lymphocytes % Monocytes % Eosinophils % Basophils % Nucleated RBC % Absolute Neutrophils Absolute Lymphocytes Absolute Monocytes Absolute Eosinophils Absolute Basophils PT INR APTT VBG pH 7.33 VBG pCO2 49 VBG pO2 29 VBG HCO3 26 VBG Total CO2 24 VBG O2 Saturation 49 VBG Base Excess 0 Sodium Potassium Chloride Carbon Dioxide Anion Gap BUN Creatinine Est GFR (CKD-EPI 2020) Glucose Calcium Total Bilirubin AST ALT Alkaline Phosphatase Troponin I NT-Pro-B Natriuret Pep 53266 H Total Protein Albumin Lipase TSH 4.30 H Free T4 1.81 H Urine Color Urine Clarity Urine pH Ur Specific [place] Urine Protein Urine Ketones Urine Blood Urine Nitrite Urine Bilirubin Urine Urobilinogen Ur Leukocyte Esterase Urine RBC Urine WBC Ur Epithelial Cells Urine Crystals Urine Bacteria Urine Casts Urine Mucus Urine Other Ur Culture Indicated? Urine Glucose COVID-19 Source SARS-CoV-2 (PCR) Influenza Type A (PCR) Influenza Type B (PCR) RSV (PCR) 12/27/22 12/27/22 12/27/22 11:38 13:00 13:18 WBC RBC Hgb Hct MCV MCH MCHC RDW Plt Count MPV Immature Gran % Neutrophils % Lymphocytes % Monocytes % Eosinophils % Basophils % Nucleated RBC % Absolute Neutrophils Absolute Lymphocytes Absolute Monocytes Absolute Eosinophils Absolute Basophils PT INR APTT VBG pH VBG pCO2 VBG pO2 VBG HCO3 VBG Total CO2 VBG O2 Saturation VBG Base Excess Sodium Potassium Chloride Carbon Dioxide Anion Gap BUN Creatinine Est GFR (CKD-EPI 2020) Glucose Calcium Total Bilirubin AST ALT Alkaline Phosphatase Troponin I < 50 NT-Pro-B Natriuret Pep Total Protein Albumin Lipase TSH Free T4 Urine Color Yellow Urine Clarity Clear Urine pH 6.5 Ur Specific [place] 1.025 Urine Protein >=300 H Urine Ketones Negative Urine Blood Negative Urine Nitrite Negative Urine Bilirubin Small H Urine Urobilinogen 2.0 H Ur Leukocyte Esterase Negative Urine RBC 3-5 H Urine WBC 0-2 Ur Epithelial Cells Many Urine Crystals Negative Urine Bacteria Negative Urine Casts Negative Urine Mucus Negative Urine Other Few Renal Ur Culture Indicated? No Urine Glucose Negative COVID-19 Source Nasopharynx SARS-CoV-2 (PCR) Negative Influenza Type A (PCR) Negative Influenza Type B (PCR) Negative RSV (PCR) Negative Last Vital Signs Temp 37.2 C 12/27/22 15:32 Pulse 121 H 12/27/22 15:32 Resp 18 12/27/22 15:32 BP 131/82 12/27/22 15:32 Pulse Ox 96 12/27/22 15:32 PAWSS Have you Been Recently Intoxicated or Drunk Within the Last 30 days?: No Have you Ever Experienced Previous Episodes of Alcohol Withdrawal?: No Have you ever Experienced Withdrawal Seizures?: No Have you ever Experienced Delirium Tremens(DT)s?: No Have you ever undergone Alcohol Rehabilitation Treatment (i.e, inpt ot outpatient treatment programs)?: No Have you ever Experienced Blackouts?: No Have you ever Combined Alcohol with other Downers within the last 90 days?: No Have you ever Combined Alcohol with any other Substance of Abuse during the last 90 days?: No Positive Blood Alcohol level on Presentation? [PCS.BAL]: No Evidence of Increased Autonomic Activity (i.e. HR>120, tremor, sweating, agitation, nausea)?: No Result: 0 Time Spent Time spent with Patient: 55-74 minutes Time was spent: preparing to see the patient(eg.review tests), obtaining and/or reviewing separately otained hiistory, ordering medications,tests, procedures, referring, communicating with other health property caretaker (Dr. Jackson), indepentently interpreting results, counseling the patient and care coordination
[2022-12-27] MEDS: Potassium Chloride 20 MEQ TABCR 40 MEQ PO (17:49)
[2022-12-27] MEDS: Normal Saline Flush 10 ML SYR IVP ×3 (17:51→22:29)
[2022-12-27] MEDS: Furosemide 40 MG/4 ML VIAL IVP (17:51)
[2022-12-27] MEDS: Budesonide/Formoterol 80/4.5 6.9 GM 60 PUFF INH IH (19:47)
[2022-12-27] MEDS: Acetaminophen 500 MG TAB 1000 MG PO (20:06)
[2022-12-27] MEDS: Magnesium Chloride 64 MG TABCR PO (20:06)
[2022-12-27] MEDS: Rivaroxaban 15 MG TABLET PO (20:09)
[2022-12-27 21:22] LABS: Magnesium 0.9 mg/dL (1.8-2.4)
[2022-12-27] MEDS: Normal Saline 500 ML 30 ML IV (22:13)
[2022-12-27] MEDS: MAGNESIUM SULFATE 2 GM/50 ML BAG IVPB ×2 (22:13→23:54)
[2022-12-28] VITALS (7 sets, daily range): BP systolic 103–140; BP diastolic 67–90; PULSE 82–121; RESP 16–19; TEMP 36.1–36.6; O2SAT 96–98
[2022-12-28] MEDS: Levothyroxine 88 MCG TAB PO (06:45)
[2022-12-28 06:55] LABS: Abs Immature Grans 0.05 10^3/uL (0.0-0.06); Absolute Basophil Count 0.04 10^3/uL (0.0-0.2); Absolute Eosinophil Count 0.15 10^3/uL (0.0-0.7); Absolute Lymphocyte Count 1.71 10^3/uL (1.2-3.4); Absolute Monocyte Count 0.49 10^3/uL (0.1-0.8); Absolute Neutrophil Count 4.54 10^3/uL (1.2-6.7); Basophils % 0.6; Eosinophils % 2.1; HCT 37.6 % (36.0-46.0); HGB 12.8 g/dL (11.2-15.7); Immature Grans % 0.7; Lymphocytes % 24.5; MCH 34.6 pg (27.0-33.0); MCV 102 fL (80-95); MPV 10.5 fL (8.0-11.0); Neutrophils % 65.1; Platelet Count 140 10^3/uL (130-400); RDW 13.2 % (11.7-14.6); RDW-SD 49.2 fL; WBC 6.98 10^3/uL (4.4-10.8)
[2022-12-28 07:15] LABS: Magnesium 2.3 mg/dL (1.8-2.4)
[2022-12-28 07:20] LABS: BUN 11 mg/dL (7-18); CREATININE 1.1 mg/dL (0.55-1.02); Calcium 8.6 mg/dL (8.5-10.1); Chloride 97 mmol/L (98-107); Estimated GFR 49.86 (mL/min/1.73m2); Glucose 95 mg/dL (74-106); Potassium 3.8 mmol/L (3.5-5.1); Sodium 132 mmol/L (136-145)
[2022-12-28] MEDS: Bisoprolol 5 MG TAB 7.5 MG PO (08:22)
[2022-12-28] MEDS: Magnesium Chloride 64 MG TABCR PO ×2 (08:23→13:20)
[2022-12-28] MEDS: Thiamine 100 MG TAB PO (08:23)
[2022-12-28] MEDS: Cetirizine 10 MG TAB PO (08:23)
[2022-12-28] MEDS: Vitamins B Comp w/C TAB 1 TAB PO (08:23)
[2022-12-28] MEDS: Ascorbic Acid 500 MG TAB PO (08:24)
[2022-12-28] MEDS: Losartan 50 MG TAB PO (08:24)
[2022-12-28] MEDS: Azithromycin 250 MG TAB PO (08:24)
[2022-12-28] MEDS: Furosemide 40 MG/4 ML VIAL IVP (08:25)
[2022-12-28] MEDS: cefTRIAXone 2 GM/50 ML BAG IVPB (08:25)
[2022-12-28] MEDS: Budesonide/Formoterol 80/4.5 6.9 GM 60 PUFF INH IH (08:45)
--- NOTE | 2022-12-28 08:51 | INITIAL_ITS ---
- If Service Date Differs Date of service: 12/28/22 Time of Service: 08:51 Care Management Initial Assess REASON FOR HOSPITALIZATION:: Pneumonia PAST MEDICAL HISTORY/PAST SURGICAL HISTORY:: All Active Problems. Pneumonia (Acute). Atrial fibrillation (Chronic). Cardioversion and Amiodarone in 2011: successfull but reverted 1 week later- amiodarone. Xarelto for stroke prophylaxis. Essential hypertension (Chronic 06/20/13). Hyperlipidemia (Chronic). Hypothyroidism (Chronic). Cardiomyopathy (Chronic). unclear etiology/ EF as low as 25% in 2011-back up around 50% post a.fib. rate regulated and post infection/poss. A.Fib. related vs etoh. Sensorineural hearing loss, bilateral (Acute 02/05/14). Chronic anticoagulation (Acute). Hyponatremia (Chronic). 2020. Asthma (Chronic). chronic, clinical dx on maintenece inhalers. Heavy alcohol use (Acute). Medical History . Anemia (08/19/01). Closed fracture of left femur (08/22/17). left periprosthetic femur fracture post fall- treated [facility] (open reduction/int.fixation). Closed pelvic fracture. Erosion of teeth. Generalized osteoarthrosis. hips and knees. History of alcoholism. 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 Prurigo nodularis (05/21/15). 05/2015; DR. DAVID. Umbilical hernia. Vitamin D deficiency, unspecified. switched to PO vitamin B12 in February 2016. Surgical History . Bilateral salpingectomy with oophorectomy. Debridement, Soft Tissue (09/29/17). IRRIGATION AND DEBRIDEMENT LEFT HIP INCISION--PLACEMENT PF LANCE DRAIN. ASPIRATION LEFT TKA. Status post open reduction with internal fixation of fracture. Total replacement of hip (07/08/11). LEFT PREVIOUS FUNCTIONAL STATUS/SOCIAL/FAMILY SUPPORTS:: Reta has been for 16 years. She lives alone in an apartment at [facility]. She is able to perform all of her own care and ADLs. She has 9 children ( 5 are her own) and 19 grandchildren who are helpful and supportive. Reta had 4 siblings but they are all . Her main support is her son Rashid who helps Reta with acquiring food and transportation. Reta reports having many friends locally. She speaks highly of the half-way apartment building where she has been for over ten years. CURRENT FUNCTIONAL STATUS:: Reta was sitting up in a chair when CM met with her. She was dressed and announced she was being discharged; she was just waiting for her son to pick her up. Reta talked about her family and the support she has. She admitted to CM that she knows she is very alcides. Reta also shared how much she enjoys living at [facility]. She explained that there are 21 tenants and thats they treat each other as family and watch out for one another. ADVANCE DIRECTIVES:: Barb Gale Has patient been provided with info about the portal/API?: Yes Did the patient sign up for the portal?: No CODE STATUS:: DNR/DNI INSURANCE COVERAGE / FINANCIAL ISSUES:: Medicare. Medicaid CURRENT HOME/COMMUNITY SERVICES/EQUIPMENT:: Reta has [facility] moderate needs. One of her daughters is paid through [employer] to care for her every Wednesday and she has a community chest officer through [employer] by the name of Gudelia. Reta receives Meals on Wheels from the [employer] [employer] and uses a walker to assist with ambulation. PRIMARY CARE PHYSICIAN:: Chitra Martinez POTENTIAL DISCHARGE NEEDS:: Follow up with PCP and plan of care PATIENT/FAMILY EDUCATION NEEDS:: Review of discharge instructions, activity, limitations, follow up plan, Ask Me Three TRANSPORTATION:: via private vehicle with family PLAN:: Anticipate Reta will discharge home with no new services. She will follow up with her community providers and plan of care and transport with family. CM will follow and assess for ongoing discharge concerns.
--- NOTE | 2022-12-28 09:26 | IN_ITS ---
Date of service: 12/28/22 Time of Service: 09:00 PT Notes Visit Reasons: Pneumonia Physical Therapy Inpatient Initial Evaluation Date: 12/28/2022 Referring Doctor: Aron Black MD PT Orders: PT CONSULT: Fall safety assessment Precautions: Fall. Standard. Hearing impaired. On fluid restriction. Patient Profile/Admitting Diagnosis:? Reta is an 82 yo female who presented to the ED on 12/27/2022 for worsening cough, congestion, mild diarrhea, nausea, vomiting, and generalized weakness. Patient is admitted for management of pneumonia, asthma and co-morbidities listed under active problems below. PMHX: All Active Problems Pneumonia (Acute) Atrial fibrillation (Chronic) Cardioversion and Amiodarone in 2011: successfull but reverted 1 week later- amiodarone Xarelto for stroke prophylaxis Essential hypertension (Chronic 06/20/13) Hyperlipidemia (Chronic) Hypothyroidism (Chronic) Cardiomyopathy (Chronic) unclear etiology/ EF as low as 25% in 2011-back up around 50% post a.fib. rate regulated and post infection/poss. A.Fib. related vs etoh Sensorineural hearing loss, bilateral (Acute 02/05/14) Chronic anticoagulation (Acute) Hyponatremia (Chronic) 2020 Asthma (Chronic) chronic, clinical dx on maintenece inhalersHeavy alcohol use (Acute) Medical History? 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 DAVID Umbilical hernia Vitamin D deficiency, unspecified switched to PO vitamin B12 in February 2016 Surgical History? Bilateral salpingectomy with oophorectomy Debridement, Soft Tissue (09/29/17) IRRIGATION AND DEBRIDEMENT LEFT HIP INCISION--PLACEMENT PF LANCE DRAIN ASPIRATION LEFT TKA Status post open reduction with internal fixation of fracture Total replacement of hip (07/08/11) Social History/Home Situation: [place] in [place] apartment on main level, ambulates with FWW, small household distances required, patient does not drive. has 4 kids who live close by and visit regularly. Receives meals on wheels. Equipment Owned/DME: FWW Subjective:? States that she feels much better and is pretty much where she was mobility- felipe. Mildly short of breath after ambulation but quickly subsided. Denies nausea and lightheadedness throughout. Okay with PT checking in on her at home for safety. Objective:? General Observation: Patient pleasant and motivated. IV through L UE. Mental Status: A&O x4 Pain: Denies ROM: Right Upper Extremity: Shoulder Flexion WFL. Shoulder abduction WFL. Elbow flexion WFL. Wrist flexion WFL. Opening and closing of hand WFL. Left Upper Extremity: Shoulder Flexion WFL. Shoulder abduction WFL. Elbow flexion WFL. Wrist flexion WFL. Opening and closing of hand WFL. Right Lower Extremity: Hip flexion WFL. Hip abduction WFL. Knee flexion WFL. Ankle dorsiflexion to neutral only. Ankle plantarflexion WFL. Left Lower Extremity: Hip flexion WFL. Hip abduction WFL. Knee flexion WFL. Ankle dorsiflexion to neutral only. Ankle plantarflexion WFL. Strength: Right Upper Extremity: Shoulder flexors 4-/5. Shoulder abductors 4-/5. Shoulder ER 4/5. Shoulder IR 4-/5. Elbow flexors 5/5. Elbow extensors 4-/5. Mail Handlers Supervisor strong. Left Upper Extremity: Shoulder flexors 4-/5. Shoulder abductors 4-/5. Shoulder ER 4/5. Shoulder IR 4-/5. Elbow flexors 5/5. Elbow extensors 4-/5. Mail Handlers Supervisor strong. Right Lower Extremity: Hip flexors 4-/5. Hip abductors 4-/5. Knee flexors 4/5. Knee extensors 4-/5. Ankle dorsiflexors 3-/5. Ankle plantarflexors 3-/5. Left Lower Extremity: Hip flexors 3+/5. Hip abductors 3+/5. Knee flexors 4/5. Knee extensors 3+/5. Ankle dorsiflexors 3-/5. Ankle plantarflexors 3-/5. Sensation:? Intact as to pain and pressure on bilateral lower extremities. Bed Mobility/Transfers: Rolling: Independent Supine to sit: Independent Sit to supine: Independent Sit to stand: Independent Stand to sit: Independent Gait:? Negotiated 300 feet of level surface ambulation using front wheeled walker with supervision assist for IV pole management only. Denies headache, nausea, and lightheadedness throughout. Reported minimal shortness of breath that quickly resolved with seated rest after activity. Balance:? Static Sitting: Normal Dynamic Sitting: Normal Static Standing: Good Dynamic Standing: Poor Special Tests: Mobility Limitations Standardized Measure [facility] 6 clicks Basic Mobility Inpatient Short Form: Raw Score: 24 ? CMS Score: 0% deficit 4-stage Balance test: Able to maintain feet together and standby tendon stance for 10 seconds but is unable to perform full tandem and 1 legged stance indicating a risk for falls and need for use of assistive ambulatory device at home Informed Consent/Education:? Patient instructed in purpose of PT consult and plan of care. Assessment: Patient at near premorbid mobility level using front wheeled walker. Will require a sitter to from home health PT to ensure safety at discharge destination. Has equipment she needs. Has good family support. Patient presents with clinical signs and symptoms consistent with current/admitting diagnoses that have resulted to mobility limitations, gait instability, generalized weakness, and impairment of motor control as demonstrated by the following impairment level findings: 1. Impaired standing balance 2. Impaired activity tolerance Impairments are contributing to the following functional limitations: 1. Increase completion time for mobility ADL performance 2. Increased fall risk Patient is assessed as a low complexity based on the following: History: 81 year old female with impairment level findings, functional limitations, and past medical history as indicated above Examination: Demonstrable impairment in strength, balance, and mobility level with underlying impairments and functional limitations as documented above Presentation: Stable Decision Making: Low complexity Goals: N/A. PT evaluation only. May walk in the hallway independently using front wheeled walker once IV is discontinued. Plan of Care/Treatment Plan: N/A. PT evaluation only. May walk in the hallway independently using front wheeled walker once IV is discontinued. DISCHARGE RECOMMENDATIONS: Home when medically cleared by hospitalist. Recommend home health PT for home safety assessment and functional maintenance program development to increase ability to remain at home safely.. TREATMENT CODE/TIME:? 66846 x 27 minutes beginning at 9:00 AM. Thank you for the opportunity to participate in the care of this patient. Rose Ladd PT, DPT, CLT [facility] [place], [place]
--- NOTE | 2022-12-28 11:30 | W.PM.DS.N ---
Date of service: 12/28/22 Time of Service: 11:30 DS: Diagnosis Discharge Diagnosis (1) Pneumonia: Status: Acute (2) Asthma: Status: Chronic (3) Cardiomyopathy: Status: Chronic (4) Atrial fibrillation: Status: Chronic (5) Chronic anticoagulation: Status: Acute (6) Essential hypertension: Status: Chronic (7) Hyperlipidemia: Status: Chronic (8) Hypothyroidism: Status: Chronic Discharge Plan Disposition Patient Disposition: Home Condition: Good Discharge Details Reason For Visit: Pneumonia Admit Date/Time: 12/27/22 12:54 Admit Provider: Aron Black Attending Provider: Aron Black Primary Care Provider: Chitra Martinez Hospital Course Hospital Course: 82 yr old female nonsmoker w/ hx of chronic afib anticoagulated w/ Xarelto, rate controlled w/ bisoprolol who developed cold like symptoms about one week ago w/ sneezing, post nasal drainage, scratchy throat but for past couple days has had incresed cough now productive of green mucous. No fevers or rigors. She was concerned she might be getting pneumonia. She has had her COVID vaccines as well as her influenza and pneumonia vaccines. She has not had a bronchitis for couple years now. In the ER she was not hypoxic but CXR demonstrated left perihilar infiltrate and small pleural effusion.? CBC demonstrated WBC 12,300. VBG was unremarkable. CMP sodium 130, chloride 93, normal BUN 8, and creatinine 1.1. BNP 20,280, troponin <50 x 2 sets. UA >300 mg/dL protein, negative nitrites, leukocyte esterase or bacteria. Patient was given 500 mL saline bolus iv fluid, ceftriaxone 2 gm IVPB and azithromyci 500 mg IVPB. ED personnel tried ambulating her but she was too weak to return home. Dr. Jackson advised admission on observation for more antibiotics, pulmonary toiletry, P.T. consult in the a.m. Patient states she now feels much but still weak. She is ambulating w/ a walker w/ SBA. She still gets dyspneic w/ activity. Her comorbidities include cardiomyopathy (last echo @ [facility] 08/22/20, normal LV size and thickness w/ LVEF 55% w/ no RWMA, but borderline dilated RV w/ normal RV systolic fxn, moderate biatrial dilatation, no AI or , mild MAC w/ mild MR, mild to mod. TR w/ RVSP 32 mm, trace PI, dilated ascending aorta 3.5 cm. She also has HTN, HLD, hypothyroidism, former alcohol abuse but has been abstinent, s/p L NIKKIE. Patient was admitted overnight and put on Ceftriaxone and doxycycline, aerosolized bronchodilators. She did not require oxygen supplementation. Her magnesium was low on admission at 0.9 and she received magnesium sulfate 4 gm infusion. Subsequently her repeat magnesium the next morning was normal at 2.3. She was assessed by physical therapy the next morning and her weakness had resolved. She was ambuling w/ use of FWW w/ only SBA. She was deemed appropriate to return home. RT did an exercise oximetry study in which the patient walked 350 feet and her [place] SPO2 wsa 96%. Her HR did go up to 120 bpm w/ exercise but then returned to 82 bpm after 1 minute of recovery. She did not require any stops during her walk. Home Meds and New Rx's Prescriptions: New prednisone 20 mg tablet 40 mg PO DAILY 5 Days Qty: 10 0RF amoxicillin-pot clavulanate [Augmentin] 500-125 mg tablet 1 tab PO TID 7 Days Qty: 21 0RF azithromycin 250 mg tablet 250 mg PO DAILY 5 Days Qty: 5 0RF Continued ascorbic acid (vitamin C) 500 mg tablet 500 mg PO DAILY Women's Multivitamin Gummies 200 MCG tablet,chewable 200 mcg PO DAILY Qty: 150 thiamine mononitrate (vit B1) 100 MG tablet 100 mg PO DAILY losartan 50 mg tablet See Rx Instructions .ROUTE .COMPLEX Qty: 90 3RF Dose Instruction: TAKE 1 TABLET BY MOUTH DAILY Rx Instructions: TAKE 1 TABLET BY MOUTH DAILY rivaroxaban 15 mg tablet 15 mg PO QPM Qty: 30 11RF Rx Instructions: must administer with evening meal cetirizine 10 mg capsule 10 mg PO DAILY Qty: 90 4RF fluticasone furoate-vilanterol [Breo Ellipta] 100-25 mcg/dose blister with device 1 inh INHALATION DAILY Qty: 28 12RF levothyroxine 88 mcg tablet 88 mcg PO DAILY Qty: 90 3RF bisoprolol fumarate 5 mg tablet 7.5 mg PO DAILY Qty: 135 3RF furosemide 20 mg tablet 20 mg PO DAILY PRN (Reason: edema) Qty: 30 0RF Hold Instructions: Home Medication placed on hold at Doctor's office potassium chloride 20 mEq/15 mL liquid 20 meq PO DAILY PRN (Reason: when using furosemide) Qty: 450 12RF albuterol sulfate [Ventolin HFA] 90 mcg/actuation HFA aerosol inhaler 2 puff inhalation QID PRN (Reason: shortness of breath or wheezing) Qty: 18 2RF vitamin [id number] acid 1,000-400 mcg Lozenge 1,000 heidi SUBLINGUAL DAILY acetaminophen [Mapap Extra Strength] 500 mg Tablet 1,000 mg PO TID Qty: 90 0RF Changed Mag 64 64 mg tablet,delayed release (DR/EC) 64 mg PO PC Qty: 60 2RF Discharge Instructions Instructions: Amoxicillin/Clavulanate Potassium (By mouth), Azithromycin (By mouth), Bacterial Pneumonia (DC), Hypomagnesemia (DC) Additional Instructions: You were treated for pneumonia and given iv antibiotics, ceftriaxone and azithromycin. You were also found to have severely low magnesium level which was corrected w/ intravenous magnesium replacement and your level is now normal. Please increase your magnesium supplements to three times per day after meals. Avoid taking w/ antacids or dairy products. get follow up labwork in the next week to assess that your electrolyte levels remain normal. You have been prescribed 5 more days of azithromycin and 7 days of Augmentin (amoxicilline/clavulanate); please take these w/ meals and finish all of your antibiotics. Get a follow chest xray in two weeks. You have been prescribed a short course of prednisone which should help w/ your wheezing and decrease lung inflammation. Use your ventolin 2 puffs every 4 hours as needed for acute wheezing or shortness of breath. It may help your exercise tolerance to use one or two puff prior to physical activity. Stand Alone Forms: Nursing Discharge Form Referrals: Chitra Martinez MD [Primary Care Provider] - 01/01/23 2:40 pm Activity:: Activity as Tolerated Equipment/Supplies:: No Equipment Needed Diet:: Normal Diet Discharge Orders Discharge Orders: Discharge Order (Routine); Ordered 12/28/22 Ordered By: Aron Black Other Ambulatory Orders: Basic Metabolic Panel (Routine) Timeframe: 1 Week Facility: [facility] - Location: Laboratory Outpatient - [facility] Ordered By: Aron Black XR chest 2V PA & lateral (Routine) Timeframe: 2 Weeks Facility: [facility] - Location: DIAGNOSTIC IMAGING DEPT Ordered By: Aron Black Magnesium (Routine) Timeframe: 1 Week Facility: [facility] - Location: Laboratory Outpatient - [facility] Ordered By: Aron Black DS: Summary Time Spent with Patient providing and/or coordinating discharge services: Less than 30 minutes Status at Discharge Functional status at discharge: uses cane/walker Overall status at discharge: patient is progressing back to baseline Mental Status: mental status grossly normal Speech and Movement: speech and movement normal Mood: congruent mood Affect: normal affect Exam Narrative Exam Narrative: Reta is feeling markedly better and is looking forward to going home. She is not dyspneic at rest and only mildly so w/ ambulating for P.T. She is not hypoxemic Lungs: scattered expiratory wheezes but improved airflow; bilateral rales; no rhonchi Heart: irregularly irregular Abdomen: soft, nontender Legs/feet; no edema Psych Mental Status: mental status grossly normal Speech and Movement: speech and movement normal Mood: congruent mood Affect: normal affect DS: Data Vitals/I&O Vitals and I&O: Vital Signs Temperature 36.6 C 12/28/22 11:12 Temperature Source Tympanic 12/28/22 11:12 Pulse 83 12/28/22 11:12 Pulse Rhythm Irregular 12/28/22 08:35 Respiratory Rate 16 12/28/22 11:12 Respiratory Effort Normal 12/28/22 08:35 Respiratory Depth Normal 12/28/22 08:35 Respiratory Pattern Normal 12/28/22 08:35 Blood Pressure 103/67 12/28/22 11:12 Blood Pressure Mean 82 12/27/22 13:45 Blood Pressure Position Supine 12/27/22 09:57 Pulse Oximetry 96 12/28/22 11:12 Oxygen Delivery Method Room Air 12/28/22 11:12 Oxygen Flow Rate 0 12/28/22 11:12 Pain Level 0 12/28/22 08:24 Comment RN infomredof HR 12/28/22 07:28 Intake & Output 12/27/22 12/27/22 12/28/22 11:59 23:59 11:59 Intake Total 500 / 510 10 / 510 100 / 100 Output Total 575 / 775 800 / 800 Balance 500 / -265 -565 / -265 -700 / -700 Weight 56.699 kg 56.9 kg Intake: IV 500 / 510 10 / 510 100 / 100 Output: Urine 575 / 775 800 / 800 Other: Urine Color Yellow Yellow Urine Appearance Clear Clear Urine Odor None Normal Comment mixed with stool Stool Size Smear Small Stool Characteristics Liquid Soft Brown Brown Voiding Methods Toilet Toilet Data Completed and Pending Labs on day of discharge: Labs from last 24 hours 12/28/22 12/28/22 12/28/22 06:19 06:19 06:19 WBC 6.98 RBC 3.70 L Hgb 12.8 Hct 37.6 MCV 102 H MCH 34.6 H MCHC 34.0 RDW 13.2 Plt Count 140 MPV 10.5 Immature Gran % 0.7 Neutrophils % 65.1 Lymphocytes % 24.5 Monocytes % 7.0 Eosinophils % 2.1 Basophils % 0.6 Nucleated RBC % 0.0 Absolute Neutrophils 4.54 Absolute Lymphocytes 1.71 Absolute Monocytes 0.49 Absolute Eosinophils 0.15 Absolute Basophils 0.04 Sodium 132 L Potassium 3.8 Chloride 97 L Carbon Dioxide 27.0 Anion Gap 8.0 BUN 11 Creatinine 1.1 H Est GFR (CKD-EPI 2020) 49.86 Glucose 95 Calcium 8.6 Magnesium 2.3 Troponin I TSH Free T4 Urine Color Urine Clarity Urine pH Ur Specific [place] Urine Protein Urine Ketones Urine Blood Urine Nitrite Urine Bilirubin Urine Urobilinogen Ur Leukocyte Esterase Urine RBC Urine WBC Ur Epithelial Cells Urine Crystals Urine Bacteria Urine Casts Urine Mucus Urine Other Ur Culture Indicated? Urine Glucose COVID-19 Source SARS-CoV-2 (PCR) Influenza Type A (PCR) Influenza Type B (PCR) Urine Legionella Ag RSV (PCR) Ur Strep pneumoniae Ag 12/27/22 12/27/22 12/27/22 13:18 13:18 13:00 WBC RBC Hgb Hct MCV MCH MCHC RDW Plt Count MPV Immature Gran % Neutrophils % Lymphocytes % Monocytes % Eosinophils % Basophils % Nucleated RBC % Absolute Neutrophils Absolute Lymphocytes Absolute Monocytes Absolute Eosinophils Absolute Basophils Sodium Potassium Chloride Carbon Dioxide Anion Gap BUN Creatinine Est GFR (CKD-EPI 2020) Glucose Calcium Magnesium 0.9 L Troponin I < 50 TSH Free T4 Urine Color Urine Clarity Urine pH Ur Specific [place] Urine Protein Urine Ketones Urine Blood Urine Nitrite Urine Bilirubin Urine Urobilinogen Ur Leukocyte Esterase Urine RBC Urine WBC Ur Epithelial Cells Urine Crystals Urine Bacteria Urine Casts Urine Mucus Urine Other Ur Culture Indicated? Urine Glucose COVID-19 Source SARS-CoV-2 (PCR) Influenza Type A (PCR) Influenza Type B (PCR) Urine Legionella Ag Pending RSV (PCR) Ur Strep pneumoniae Ag 12/27/22 12/27/22 12/27/22 13:00 13:00 11:38 WBC RBC Hgb Hct MCV MCH MCHC RDW Plt Count MPV Immature Gran % Neutrophils % Lymphocytes % Monocytes % Eosinophils % Basophils % Nucleated RBC % Absolute Neutrophils Absolute Lymphocytes Absolute Monocytes Absolute Eosinophils Absolute Basophils Sodium Potassium Chloride Carbon Dioxide Anion Gap BUN Creatinine Est GFR (CKD-EPI 2020) Glucose Calcium Magnesium Troponin I TSH Free T4 Urine Color Yellow Urine Clarity Clear Urine pH 6.5 Ur Specific [place] 1.025 Urine Protein >=300 H Urine Ketones Negative Urine Blood Negative Urine Nitrite Negative Urine Bilirubin Small H Urine Urobilinogen 2.0 H Ur Leukocyte Esterase Negative Urine RBC 3-5 H Urine WBC 0-2 Ur Epithelial Cells Many Urine Crystals Negative Urine Bacteria Negative Urine Casts Negative Urine Mucus Negative Urine Other Few Renal Ur Culture Indicated? No Urine Glucose Negative COVID-19 Source Nasopharynx SARS-CoV-2 (PCR) Negative Influenza Type A (PCR) Negative Influenza Type B (PCR) Negative Urine Legionella Ag RSV (PCR) Negative Ur Strep pneumoniae Ag Pending 12/27/22 10:30 WBC RBC Hgb Hct MCV MCH MCHC RDW Plt Count MPV Immature Gran % Neutrophils % Lymphocytes % Monocytes % Eosinophils % Basophils % Nucleated RBC % Absolute Neutrophils Absolute Lymphocytes Absolute Monocytes Absolute Eosinophils Absolute Basophils Sodium Potassium Chloride Carbon Dioxide Anion Gap BUN Creatinine Est GFR (CKD-EPI 2020) Glucose Calcium Magnesium Troponin I TSH 4.30 H Free T4 1.81 H Urine Color Urine Clarity Urine pH Ur Specific [place] Urine Protein Urine Ketones Urine Blood Urine Nitrite Urine Bilirubin Urine Urobilinogen Ur Leukocyte Esterase Urine RBC Urine WBC Ur Epithelial Cells Urine Crystals Urine Bacteria Urine Casts Urine Mucus Urine Other Ur Culture Indicated? Urine Glucose COVID-19 Source SARS-CoV-2 (PCR) Influenza Type A (PCR) Influenza Type B (PCR) Urine Legionella Ag RSV (PCR) Ur Strep pneumoniae Ag 12/27/22 11:10 Blood Blood Culture - Pending 12/27/22 10:30 Blood Blood Culture - Pending Preliminary micro results at discharge 12/27/22 11:10 Blood Culture - Pending Blood 04/09/23 10:30 Blood Culture - Pending Blood [facility] All Active Problems Medication monitoring encounter (Acute) Pneumonia (Acute) Atrial fibrillation (Chronic) Cardioversion and Amiodarone in 2012: successfull but reverted 1 week later- amiodarone Xarelto for stroke prophylaxis Essential hypertension (Chronic 06/20/13) Hyperlipidemia (Chronic) Hypothyroidism (Chronic) Cardiomyopathy (Chronic) unclear etiology/ EF as low as 25% in 2011-back up around 50% post a.fib. rate regulated and post infection/poss. A.Fib. 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 DAVID Umbilical hernia Vitamin D deficiency, unspecified switched to PO vitamin B12 in February 2016 Surgical History Bilateral salpingectomy with oophorectomy Debridement, Soft Tissue (09/29/17) IRRIGATION AND DEBRIDEMENT LEFT HIP INCISION--PLACEMENT PF LANCE DRAIN ASPIRATION LEFT TKA Status post open reduction with internal fixation of fracture Total replacement of hip (07/08/11) LEFT Family History Mother , AGE 92 No problems noted. Father , AGE 92 Stroke Sister , AGE 93 No problems noted. Sister , AGE 89 No problems noted. Brother , AGE 90 Lung cancer Heart disease Brother , AGE 90 Heart disease Bone cancer Son Alcohol abuse Son , AT No problems noted. Son Alcohol abuse Daughter No problems noted. Daughter No problems noted. Daughter No problems noted. Maternal Grandfather Alcohol abuse Paternal Grandfather , age 100 No problems noted. Maternal Grandmother , age 82 No problems noted. Paternal Grandmother , age 100 No problems noted. 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 Pets and animals: No Sexually active: No Do you think of yourself as: straight/heterosexual Current gender identity: female What is your relationship status?: How often do you talk on the phone with friends or family?: three or more times per week How often do you get together with friends or relatives?: three or more times per week How often do you attend caodaism or latter day services?: 1-3 times per year Do you belong to any clubs or organized social groups?: yes Panel score (0-1 are the most socially isolated patients): 2 What type of physical activity do you participate in: walking Duration: 15-30 minutes/day Frequency: daily Diane/Moravian: Presybeterian Special diane needs: No Seatbelt use: always Drive intox or ride w/intox road train driver: No Do you feel safe at home: Yes Do you feel safe in your relationship?: Yes Victim of physical abuse: No Victim of emotional abuse: Yes Victim of sexual abuse: No Would you like helpful sources: No Time Spent with Patient Time Spent with Patient: <45 minutes Time was spent: preparing to see the patient(eg.review tests), ordering medications,tests, procedures, indepentently interpreting results, counseling the patient and care coordination
[2022-12-28 23:17] LABS: Legionella Ag Detection Urine Negative (Negative)
--- NOTE | 2022-12-29 08:05 | NUR.NOTE ---
Nursing Note: Accessed patient chart to determine how many EKG orders were in the chart from the ED. There was an outstanding EKG in ordered status. There are no EKG's in the [facility] system that are outstanding. EKG order was deleted.
[2022-12-30 00:12] LABS: Streptococcus Pneumoniae Ag, U Negative (Negative)
== END 2022-12-28 15:57 | disposition home or self-care (01) ==
LOC: ER 13:54 → MS 13:56
PROVIDERS: General Practice; Admitting Provider Internal Medicine; Emergency Provider Student in an Organized Health Care Education/Training Program; PCP Family Medicine; Visit Provider Internal Medicine
DX: J18.9 Pneumonia, unspecified organism (principal); J45.909 Unspecified asthma, uncomplicated; I48.19 Other persistent atrial fibrillation; I42.9 Cardiomyopathy, unspecified; E78.5 Hyperlipidemia, unspecified; E03.9 Hypothyroidism, unspecified; Z79.01 Long term (current) use of anticoagulants; I10 Essential (primary) hypertension; Z96.642 Presence of left artificial hip joint; E87.1 Hypo-osmolality and hyponatremia; F10.11 Alcohol abuse, in remission; Z86.73 Personal history of transient ischemic attack (TIA), and cerebral infarction without residual deficits; E55.9 Vitamin D deficiency, unspecified; M15.9 Polyosteoarthritis, unspecified; Z20.822 Contact with and (suspected) exposure to COVID-19; J90 Pleural effusion, not elsewhere classified; R06.02 Shortness of breath
CPT/HCPCS: 36415; 80048; 80053; 82805; 83690; 87040; 87449; 87637; 93005; 94640; 96365; 96366; 96368; 96375; 97161; 97530; 99285; 71045; 81003; 81015; 83735; 83880; 84439; 84443; 84484; 85025; 85610; 85730; 87899; 93010; 94664; 94667; 94668; 99223; 99238; G0378; J0456; J1940

== ENCOUNTER 2023-01-13 01:23 | Outpatient (CLI) | payer MEDICARE, MEDICAID, SELFPAY ==
--- NOTE | 2023-01-13 08:15 | DI.RAD_ITS ---
Exam(s) XR CHEST 2V PA LATERAL EXAM: XR CHEST 2V PA LATERAL CLINICAL HISTORY: pneumonia,J18.9 TECHNIQUE: 2D digital imaging was performed. COMPARISON: CR,XR XR CHEST 2V PA LATERAL from 05/08/2021 CR,XR XR PORTABLE CHEST AP from 12/27/2022 FINDINGS: HEART: Enlarged, unchanged Aorta: Not dilated. Calcified. PULMONARY VASCULATURE: Normal. LUNGS: Fibrotic changes. No superimposed infiltrate, effusion or pulmonary edema. PLEURAL SPACE: No pleural effusion or pneumothorax. BONE:Stable mild upper thoracic compression fracture. Degenerative changes noted in the spine. IMPRESSION: No acute abnormality. DATA REPOSITORY: RADIATION DOSE DELIVERED:
== END 2023-01-13 01:43 ==
PROVIDERS: PCP Family Medicine; Visit Provider Internal Medicine
DX: J18.9 Pneumonia, unspecified organism (principal)
CPT/HCPCS: 71046

== ENCOUNTER 2023-01-27 02:27 | Outpatient (CLI) | payer MEDICARE, MEDICAID, SELFPAY ==
[2023-01-27 17:03] LABS: ALT 17 U/L (14-59); AST 21 U/L (15-37); Albumin 3.1 g/dL (3.4-5.0); Alkaline Phosphatase 121 U/L (46-116); Anion Gap 6.3 mmol/L (3-11); BUN 12 mg/dL (7-18); Bilirubin, Total 0.5 mg/dL (0.2-1.0); CO2 28.7 mmol/L (21.0-32.0); Calcium 9.9 mg/dL (8.5-10.1); Chloride 98 mmol/L (98-107); Estimated GFR 55.55 (mL/min/1.73m2); Glucose 96 mg/dL (74-106); Potassium 5.2 mmol/L (3.5-5.1); Sodium 133 mmol/L (136-145); Total Protein 7.2 g/dL (6.4-8.2)
[2023-01-27 17:17] LABS: Magnesium 1.2 mg/dL (1.8-2.4)
== END 2023-01-27 02:28 | disposition home or self-care (01) ==
LOC: LBO 02:27
PROVIDERS: PCP Family Medicine; Visit Provider Internal Medicine
DX: E83.42 Hypomagnesemia (principal); I10 Essential (primary) hypertension
CPT/HCPCS: 36415; 80053; 83735

== ENCOUNTER 2023-02-20 14:13 | Emergency (ER) | payer MEDICARE, MEDICAID, SELFPAY ==
--- NOTE | 2023-02-20 14:17 | ED.GENADUL_ITS ---
Discharge Plan Disposition Patient Disposition: Home Discharge Details Clinical Impression: Lightheadedness, Elevated blood pressure reading in office with diagnosis of hypertension, Hypomagnesemia Primary Care Provider: Chitra Martinez ED Provider: Jeffery Owen Home Meds and New Rx's Prescriptions: Continued ascorbic acid (vitamin C) 500 mg tablet 500 mg PO DAILY rivaroxaban 15 mg tablet 15 mg PO QPM Qty: 30 11RF Rx Instructions: must administer with evening meal losartan 50 mg tablet See Rx Instructions .ROUTE .COMPLEX Qty: 90 3RF Dose Instruction: TAKE 1 TABLET BY MOUTH DAILY Rx Instructions: TAKE 1 TABLET BY MOUTH DAILY levothyroxine 88 mcg tablet 88 mcg PO DAILY Qty: 90 3RF fluticasone furoate-vilanterol [Breo Ellipta] 100-25 mcg/dose blister with device 1 inh INHALATION DAILY Qty: 28 12RF cetirizine 10 mg capsule 10 mg PO DAILY Qty: 90 4RF Women's Multivitamin Gummies 200 MCG tablet,chewable 200 mcg PO DAILY Qty: 150 thiamine mononitrate (vit B1) 100 MG tablet 100 mg PO DAILY bisoprolol fumarate 5 mg tablet 7.5 mg PO DAILY Qty: 135 3RF furosemide 20 mg tablet 20 mg PO DAILY PRN (Reason: edema) Qty: 30 0RF Hold Instructions: Home Medication placed on hold at Doctor's office potassium chloride 20 mEq/15 mL liquid 20 meq PO DAILY PRN (Reason: when using furosemide) Qty: 450 12RF albuterol sulfate [Ventolin HFA] 90 mcg/actuation HFA aerosol inhaler 2 puff inhalation QID PRN (Reason: shortness of breath or wheezing) Qty: 18 2RF vitamin [id number] acid 1,000-400 mcg Lozenge 1,000 heidi SUBLINGUAL DAILY acetaminophen [Mapap Extra Strength] 500 mg Tablet 1,000 mg PO TID Qty: 90 0RF Mag 64 64 mg tablet,delayed release (DR/EC) 64 mg PO PC Qty: 60 2RF Discharge Instructions Instructions: Hypertension (ED), Hypomagnesemia (ED) Additional Instructions: You are seen in the emergency department for your lightheadedness. Your blood work shows that your magnesium was slightly low. Your kidneys are working well. Please continue taking your home medications as previously directed. Please follow-up with your primary care provider later this week to have your magnesium rechecked. Please return to the emergency department if you pass out or develop chest pain or have any other concerns. Discharge Data Discharge Date/Time-TO BE ENTERED AT DEPARTURE: 02/20/23 17:08 Medical Decision Making This is an overall quite well-appearing normothermic and not tachycardic 83-year-old female with generalized weakness. Her history and exam is not consistent with acute CVA. She has no neurological deficits and as result I did not obtain a CT scan. Given her lack of deficits and my low suspicion for CVA I did not feel that the patient would be a candidate for tPA . Furthermore she is on rivaroxaban making her ineligible for tPA. She had no nuchal rigidity to suggest meningitis. No tonic-clonic activity to suggest seizure. Headache not sudden onset so not consistent with SAH. No weight loss, jaw claudication nor history of polymyalgia rheumatica to suggest increased risk for GCA. She has had no GI losses however will check electrolytes to ensure that she has not developed an BERKLEY and does not have any acute electrolyte abnormalities given that she is on losartan and at risk for hyperkalemia. She has had no black nor bloody stools to suggest GI bleed. No shortness of breath to suggest pneumonia and no cough. No tachycardia, hypoxia nor chest pain to suggest PE. No history of trauma and clear equal breath sounds on my concern for pneumothorax. His labs and ECG are reassuring dissipate discharge with outpatient PMD follow-up. No dysuria nor frequency to suggest UTI. No shortness of breath acute CHF. No syncope to suggest symptomatic aortic stenosis. No pain out of proportion to suggest necrotizing soft tissue infection. Given the patient says that her blood pressure was normal at home on her cuff and elevated at urgent care I encouraged her to bring her cuff to her primary care appointment. 3:30 PM CBC with no anemia thrombocytopenia nor leukocytosis. Chemistry with very mildl y elevated BUN we will provide with p.o. liquids. Very mild hyperglycemia no anion gap & not consistent with DKA. Hypomagnesemia slightly improved compared to prior. We will replete with oral magnesium supplementation. Low voltage on ECG similar to prior and, in the absence of hypotension and chest pain, I was not suspicious of tamponade. I have asked health community development specialist Jessa to have the patient seen by her primary care provider in the next week to repeat a magnesium level. We will ensure patient can pass an ambulatory trial. Patient was able to ambulate in the ED without ataxia. I gave her return indications including inability tolerate p.o. any chest pain any syncope. She was discharged with PMD follow-up. Patient tolerated liquid in the ED w/out nausea and vomiting. Chronic conditions affecting the care of the patient: Hypertension atrial fibrillation History obtained from an outside historian: Patient's daughter External record [place]: [facility] [place] Diagnostic interpretations performed by me: Per my independent interpretation EKG shows: Narrow complex normal sinus rhythm at a rate of 62. Normal axis. Intervals within normal limits. Low voltage. Similar to prior. Sinus rhythm has replaced atrial fibrillation. Prior dated December 2022. No ST segment abnormalities. T wave flattening in V3 similar to prior. Medications: Beta-tricia and losartan Social determinants of health affecting disposition: [facility] Management discussed with: Patient's daughter Treatment/interventions considered: CT but deferred Response to therapies provided: Rancocas improved in the ED HPI General Date/Time Provider Initiated Documentation: 02/20/23 14:16 . HPI Narrative: This is an 83-year-old female with a history of atrial fibrillation on rivaroxaban and essential hypertension now in the emergency department in setting of generalized weakness. Patient reports that she has had a gradual onset pressure in her head over the past month. She has not taken any falls nor did she hit her head. She reports she did not take her medicines this morning. She arrives with her daughter. She was initially seen by urgent care and she had an elevated blood pressure. At home however she reported that her blood pre ssure was 122/45. She rarely drinks ethanol and denies routine tobacco and illicits. She has had a dry cough but has not had any productive sputum. No nausea vomiting abdominal pain fevers nor chest pain. No fevers chills dysuria nor frequency. Related Data Home Medications Medication Instructions Recorded Confirmed multivitamin with minerals-folic 200 mcg PO DAILY ##150 06/01/16 01/01/23 acid 200 mcg chewable tablet (Women's Multivitamin Gummies) thiamine mononitrate (vit B1) 100 100 mg PO DAILY 11/24/17 01/01/23 mg tablet vitamin B12 1,000 mcg-folic acid 1,000 heidi sublingual DAILY 10/20/19 01/01/23 400 mcg sublingual lozenge acetaminophen 500 mg tablet (Mapap 1,000 mg PO TID #90 tabs 10/23/19 01/01/23 Extra Strength) ascorbic acid (vitamin C) 500 mg 500 mg PO DAILY 09/08/21 01/01/23 tablet bisoprolol fumarate 5 mg tablet 7.5 mg PO DAILY #135 tabs 06/19/22 01/01/23 furosemide 20 mg tablet 20 mg PO DAILY PRN edema #30 tabs 10/05/22 01/01/23 potassium chloride 20 mEq/15 mL 20 meq (15 mL) PO DAILY PRN when 11/10/22 01/01/23 oral liquid using furosemide #450 mL Ventolin HFA 90 mcg/actuation 2 puff inhalation QID PRN 12/23/22 01/01/23 aerosol inhaler (albuterol sulfate) shortness of breath or wheezing #18 grams magnesium chloride 64 mg 64 mg PO PC #60 tabs 12/28/22 01/01/23 (magnesium chloride) tablet,delayed release (Mag 64) cetirizine 10 mg capsule 10 mg PO DAILY #90 caps 01/01/23 01/01/23 fluticasone furoate 100 1 inh inhalation DAILY #28 ea 01/01/23 01/01/23 mcg-vilanterol 25 mcg/dose inhalation powder (Breo Ellipta) levothyroxine 88 mcg tablet 88 mcg PO DAILY #90 tabs 01/01/23 01/01/23 losartan 50 mg tablet See Rx Instructions .Route 01/01/23 01/01/23 .COMPLEX #90 tabs rivaroxaban 15 mg tablet 15 mg PO QPM #30 tabs 01/01/23 01/01/23 Previous Rx's Medication Instructions Recorded acetaminophen 500 mg tablet (Mapap 1,000 mg PO TID #90 tabs 10/23/19 Extra Strength) bisoprolol fumarate 5 mg tablet 7.5 mg PO DAILY #135 tabs 06/19/22 furosemide 20 mg tablet 20 mg PO DAILY PRN edema #30 tabs 10/05/22 potassium chloride 20 mEq/15 mL 20 meq (15 mL) PO DAILY PRN when 11/10/22 oral liquid using furosemide #450 mL Ventolin HFA 90 mcg/actuation 2 puff inhalation QID PRN 12/23/22 aerosol inhaler (albuterol sulfate) shortness of breath or wheezing #18 grams magnesium chloride 64 mg 64 mg PO PC #60 tabs 12/28/22 (magnesium chloride) tablet,delayed release (Mag 64) cetirizine 10 mg capsule 10 mg PO DAILY #90 caps 01/01/23 fluticasone furoate 100 1 inh inhalation DAILY #28 ea 01/01/23 mcg-vilanterol 25 mcg/dose inhalation powder (Breo Ellipta) levothyroxine 88 mcg tablet 88 mcg PO DAILY #90 tabs 01/01/23 losartan 50 mg tablet See Rx Instructions .Route 01/01/23 .COMPLEX #90 tabs rivaroxaban 15 mg tablet 15 mg PO QPM #30 tabs 01/01/23 Allergies Allergy/AdvReac Type Severity Reaction Status Date / Time sulfamethoxazole AdvReac Mild NAUSEA Verified 02/20/23 12:45 trimethoprim AdvReac Mild NAUSEA Verified 02/20/23 12:45 MELISSA Inhibitors AdvReac Unknown RENAL Verified 02/20/23 12:45 INSUFFIENCIENCY benazepril AdvReac Unknown Verified 02/20/23 12:45 lovastatin AdvReac Unknown LIGHTHEADED Verified 02/20/23 12:45 NESS methyldopa AdvReac Unknown Verified 02/20/23 12:45 simvastatin [From Zocor] AdvReac Unknown BODY ACHES Verified 02/20/23 12:45 W/ HIGHER DOSES General ERNESTO: 3 PFSH All Active Problems (Updated 02/20/23 @ 15:34 by Jeffery Owen MD) Lightheadedness (Acute) Elevated blood pressure reading in office with diagnosis of hypertension (Acute) Hypomagnesemia (Acute) Atrial fibrillation (Chronic) Cardioversion and Amiodarone in 2012: successfull but reverted 1 week later- amiodarone Xarelto for stroke prophylaxis Essential hypertension (Chronic 06/20/13) Hyperlipidemia (Chronic) Hypomagnesemia (Chronic 04/18/15) Hypothyroidism (Chronic) Cardiomyopathy (Chronic) unclear etiology/ EF as low as 25% in 2012-back up around 50% post a.fib. rate regulated and post infection/poss. A.Fib. 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 DAVID Umbilical hernia Vitamin D deficiency, unspecified switched to PO vitamin B12 in February 2016 Surgical History Bilateral salpingectomy with oophorectomy Debridement, Soft Tissue (09/29/17) IRRIGATION AND DEBRIDEMENT LEFT HIP INCISION--PLACEMENT PF LANCE DRAIN ASPIRATION LEFT TKA Status post open reduction with internal fixation of fracture Total replacement of hip (07/08/11) LEFT Family History Mother , AGE 92 No problems noted. Father , AGE 92 Stroke Sister , AGE 93 No problems noted. Sister , AGE 89 No problems noted. Brother , AGE 90 Lung cancer Heart disease Brother , AGE 90 Heart disease Bone cancer Son Alcohol abuse Son , AT No problems noted. Son Alcohol abuse Daughter No problems noted. Daughter No problems noted. Daughter No problems noted. Maternal Grandfather Alcohol abuse Paternal Grandfather , age 100 No problems noted. Maternal Grandmother , age 82 No problems noted. Paternal Grandmother , age 100 No problems noted. 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 Pets and animals: No Sexually active: No Do you think of yourself as: straight/heterosexual Current gender identity: female What is your relationship status?: How often do you talk on the phone with friends or family?: three or more times per week How often do you get together with friends or relatives?: three or more times per week How often do you attend restorationism or pentecostal services?: 1-3 times per year Do you belong to any clubs or organized social groups?: yes Panel score (0-1 are the most socially isolated patients): 2 What type of physical activity do you participate in: walking Duration: 15-30 minutes/day Frequency: daily Diane/Sikh: Yazidi Special diane needs: No Seatbelt use: always Drive intox or ride w/intox driver education instructor: No Do you feel safe at home: Yes Do you feel safe in your relationship?: Yes Victim of physical abuse: No Victim of emotional abuse: Yes Victim of sexual abuse: No Would you like helpful sources: No Exam Narrative Exam Narrative: General: Well-appearing in no acute distress speaking in complete sentences. Head: Normocephalic, atraumatic. Eye: Pupils equal, round reactive to light. Extraocular eye movements intact. No conjunctival injection. No scleral icterus. Ear, nose, mouth, throat: Grossly normal inspection. Normal voice, handling secretions normally. Neck: Trachea midline. Cardiovascular: Well-perfused distal extremities. Systolic ejection murmur. Regular rate and rhythm. Respiratory: Nonlabored respiration. Clear lungs bilaterally. Soft nontender abdomen. Gastrointestinal: Nondistended abdomen. Musculoskeletal: No edema. Moving all 4 extremities spontaneously. Skin: Normal for age and race, grossly normal temperature and turgor. No acute rash. Neurologic: Alert and appropriate, no apparent acute deficits. Psychiatric: Mood and manner are appropriate. Grooming and personal hygiene are appropriate.
[2023-02-20 14:18] VITALS: BP 164/89; PULSE 86; RESP 16; TEMP 36.7; O2SAT 98
--- NOTE | 2023-02-20 14:30 | RT.EKG_ITS ---
APPROVED REPORT Exam: Resting ECG Reason for Exam: Weakness Patient Location: E HR:62 bpm ECG Measurements Heart Rate 62 AXIS NH 172 P 91 QRSd 93 QRS 73 QT 414 T 12 QTc 421 Conclusion Sinus rhythm...normal P axis, V-rate 60- 99 Low voltage, extremity leads...all extremity leads <0.5mV Narrow complex normal sinus rhythm at a rate of 62. Normal axis. Intervals within normal limits. L ow voltage. Similar to prior. Sinus rhythm has replaced atrial fibrillation. Prior dated December 3. No ST segment abnormalities. T wave flattening in V3 similar to prior.
[2023-02-20 15:11] LABS: Abs Immature Grans 0.02 10^3/uL (0.0-0.06); Absolute Basophil Count 0.02 10^3/uL (0.0-0.2); Absolute Eosinophil Count 0.24 10^3/uL (0.0-0.7); Absolute Lymphocyte Count 1.08 10^3/uL (1.2-3.4); Absolute Monocyte Count 0.55 10^3/uL (0.1-0.8); Absolute Neutrophil Count 4.82 10^3/uL (1.2-6.7); Basophils % 0.3; Eosinophils % 3.6; HCT 36.8 % (36.0-46.0); HGB 12.2 g/dL (11.2-15.7); Immature Grans % 0.3; MCH 32.8 pg (27.0-33.0); MCHC 33.2 % (32.0-36.0); MCV 99 fL (80-95); MPV 10.9 fL (8.0-11.0); Monocytes % 8.2; Neutrophils % 71.6; Platelet Count 146 10^3/uL (130-400); RBC 3.72 10^6/uL (3.93-5.22); RDW 12.1 % (11.7-14.6); RDW-SD 44.1 fL; WBC 6.73 10^3/uL (4.4-10.8)
[2023-02-20 15:29] LABS: Anion Gap 6.7 mmol/L (3-11); BUN 25 mg/dL (7-18); CO2 28.3 mmol/L (21.0-32.0); Calcium 9.9 mg/dL (8.5-10.1); Chloride 97 mmol/L (98-107); Estimated GFR 55.55 (mL/min/1.73m2); Glucose 107 mg/dL (74-106); Magnesium 1.4 mg/dL (1.8-2.4); Potassium 4.7 mmol/L (3.5-5.1); Sodium 132 mmol/L (136-145); Troponin I < 50 ng/L (<or=60)
--- NOTE | 2023-02-20 15:58 | NUR.NOTE ---
Nursing Note: Referral Faxed to PCP Chitra Martinez at [facility] in [place] for follow up later this week
[2023-02-20] MEDS: Acetaminophen 500 MG TAB 1000 MG PO (16:15)
[2023-02-20] MEDS: Losartan 50 MG TAB PO (16:15)
[2023-02-20] MEDS: Magnesium Oxide 400 MG TAB 800 MG PO (16:15)
[2023-02-20] MEDS: Bisoprolol 5 MG TAB 7.5 MG PO (17:06)
== END 2023-02-20 17:08 | disposition home or self-care (01) ==
PROVIDERS: Emergency Provider Emergency Medicine; PCP Family Medicine
DX: R42 Dizziness and giddiness (principal); R03.0 Elevated blood-pressure reading, without diagnosis of hypertension; E83.42 Hypomagnesemia
CPT/HCPCS: 80048; 93005; 99283; 83735; 84484; 85025; 93010; 99284

== ENCOUNTER 2023-02-27 14:08 | Outpatient (REF) | payer MEDICARE, MEDICAID, SELFPAY ==
[2023-02-27 11:33] LABS: Bilirubin Negative (Negative); Blood Moderate (Negative); Clarity Clear (Clear); Glucose Negative (Negative); Ketones Negative (Negative); Leukocyte Esterase Trace (Negative); Nitrite Negative (Negative); Urobilinogen 0.2 mg/dL (Up to 0.2); pH 6.5 (5-8)
[2023-02-27 11:45] LABS: Bacteria Few HPF (Negative); C & S Indicated? Yes; Casts Negative LPF (Negative); Crystals Negative HPF (Negative); Epithelial Cells Rare HPF (Negative); Mucus Trace (Negative)
[2023-02-27 11:52] LABS: Creatinine,Urine 51.78 mg/dL; Sodium, Urine 58 mmol/L
[2023-03-01 12:03] LABS: Magnesium Random Urine 9.5 mg/dL (See Note)
== END 2023-02-27 14:09 | disposition home or self-care (01) ==
LOC: LBN 14:08
PROVIDERS: PCP Family Medicine; Visit Provider Family Medicine
DX: E83.42 Hypomagnesemia (principal); R30.0 Dysuria
CPT/HCPCS: 83735; 81003; 81015; 82565; 84300; 87086

== ENCOUNTER 2023-03-24 16:07 | Outpatient (CLI) | payer MEDICARE, MEDICAID, SELFPAY ==
[2023-03-24 17:01] LABS: Magnesium 1.4 mg/dL (1.8-2.4)
== END 2023-03-24 16:08 | disposition home or self-care (01) ==
LOC: LBO 16:09
PROVIDERS: PCP Family Medicine; Visit Provider Family Medicine
DX: E83.42 Hypomagnesemia (principal)
CPT/HCPCS: 36415; 83735

== ENCOUNTER 2023-09-29 02:55 | Outpatient (CLI) | payer MEDICARE, MEDICAID, SELFPAY ==
[2023-09-29 16:15] LABS: ALT 11 U/L (14-59); AST 21 U/L (15-37); Alkaline Phosphatase 112 U/L (46-116); Anion Gap 7.7 mmol/L (3-11); BUN 12 mg/dL (7-18); Bilirubin, Total 0.7 mg/dL (0.2-1.0); CO2 27.3 mmol/L (21.0-32.0); CREATININE 1.2 mg/dL (0.55-1.02); Calcium 9.5 mg/dL (8.5-10.1); Chloride 99 mmol/L (98-107); Estimated GFR 44.64 (mL/min/1.73m2); Glucose 89 mg/dL (74-106); Magnesium 1.1 mg/dL (1.8-2.4); Potassium 4.2 mmol/L (3.5-5.1); Sodium 134 mmol/L (136-145); TSH (W/Ref FT4) 3.66 uIU/mL (0.36-3.74); Total Protein 7.4 g/dL (6.4-8.2)
== END 2023-09-29 02:56 | disposition home or self-care (01) ==
LOC: LBO 02:55
PROVIDERS: PCP Family Medicine; Visit Provider Family Medicine
DX: I10 Essential (primary) hypertension (principal); Z00.00 Encounter for general adult medical examination without abnormal findings; E03.9 Hypothyroidism, unspecified; E83.42 Hypomagnesemia
CPT/HCPCS: 36415; 80053; 83735; 84443

== ENCOUNTER → 2023-12-22 15:11 | Outpatient (CLI) | payer MEDICARE, MEDICAID, SELFPAY ==
--- NOTE | 2023-12-22 13:30 | DI.RAD_ITS ---
Exam(s) XR CHEST 2V PA LATERAL EXAM: XR CHEST 2V PA LATERAL CLINICAL HISTORY: COUGH R05.9 TECHNIQUE: 2D digital imaging was performed of the chest. Two images were obtained. PA and lateral views were obtained. COMPARISON: CR XR CHEST 2V PA LATERAL from 01/13/2023 FINDINGS: MEDIASTINUM: Normal. HEART: Stable cardiomegaly. PULMONARY VASCULATURE: Normal. LUNGS: The lungs appear hyperinflated with flattened diaphragms suggesting underlying COPD. No focal consolidating infiltrates are present. PLEURAL SPACE: No pleural effusion or pneumothorax. BONE:Within normal limits for the patient's age. OTHER FINDINGS:Normal. IMPRESSION: 1. No focal infiltrates. 2. Stable cardiomegaly. DATA REPOSITORY: RADIATION DOSE DELIVERED:
== END ==
PROVIDERS: PCP Family Medicine; Visit Provider Nurse Practitioner Family
DX: R05.8 Other specified cough (principal); J44.9 Chronic obstructive pulmonary disease, unspecified; I51.7 Cardiomegaly
CPT/HCPCS: 71046

== ENCOUNTER 2024-02-24 15:17 | Inpatient (IN) | payer MEDICARE, MEDICAID, SELFPAY ==
--- NOTE | 2024-02-24 15:00 | RT.EKG_ITS ---
APPROVED REPORT Exam: Resting ECG Reason for Exam: A-fib Patient Location: E HR:103 bpm ECG Measurements Heart Rate 103 AXIS PA [id number] P [id number] QRSd 85 QRS 55 QT 340 T 13 QTc 445 Conclusion Atrial fibrillation. 103 no stemi
[2024-02-24 15:15] VITALS: BP 170/100; PULSE 116; RESP 16; O2SAT 96
--- NOTE | 2024-02-24 15:15 | DI.CT_ITS ---
Exam(s) CT HEAD WO EXAM: CT HEAD WO CLINICAL HISTORY: headache. TECHNIQUE: Imaging Protocol: Axial computed tomography images with coronal and sagittal reformatted images were created and reviewed COMPARISON: CT CT HEAD WO from 05/08/2021 FINDINGS: Ventricles and Extra axial spaces: Normal in size and morphology for the patient's age. There is a st able hyperdense nodule along the posterior falx measuring 7 mm likely reflecting a meningioma. Hemorrhage: None. Cerebral parenchyma: There are areas of decreased attenuation in the white matter consistent with chr onic microvascular ischemic disease. There is an area of encephalomalacia again seen in the left par ietal lobe. No acute territorial infarct is seen. Midline shift: None. Brainstem/Cerebellum: Normal. Calvarium: Normal. Visualized Paranasal sinuses/Mastoids: Clear. Soft Tissues: Unremarkable. IMPRESSION: No acute intracranial process. RADIATION DOSE DELIVERED: 657.66mGy.cm Total DLP DATA REPOSITORY: All CT scans at this facility are submitted to the National Radiology Data Registry (NRDR) Dose Index Registry (DIR) with the [employer] (ACR). RADIATION OPTIMIZATION: All CT scans at this facility use at least one of these dose optimization te chniques: automated exposure control; mA and/or kV adjustment per patient size (includes targeted exa ms where dose is matched to clinical indication); or iterative reconstruction.
--- NOTE | 2024-02-24 15:35 | W.ED.GENAD ---
Discharge Plan Disposition Patient Disposition: Admit to [facility] Condition: Stable Discharge Details Clinical Impression: Atrial fibrillation, Hypoalbuminemia, Hypokalemia, Hypomagnesemia, Hypocalcemia Admit Date/Time: 02/24/24 17:00 Admit Provider: Gagandeep Betancourt Attending Provider: Gagandeep Betancourt Primary Care Provider: Chitra Matrinez ED Provider: Mignon Bates Discharge Data Discharge Date/Time-TO BE ENTERED AT DEPARTURE: 02/24/24 18:45 HPI General Date/Time Provider Initiated Documentation: 02/24/24 15:28. Limitations to Documentation: no limitations. Information obtained by: patient. HPI Narrative: 84-year-old female with past medical history of asthma, alcohol use, A-fib, hypertension, hypothyroidism presents via ambulance for evaluation of palpitations. Patient reports that she is only intermittently in A-fib. She has been compliant with her daily medication. She states that she has been having a sensation of fluttering and just not feeling well. Not associated with chest pain or shortness of breath. She reports that during this time she is also had a mild head pressure. She states it feels like stuffiness. Not acute onset, not worst headache of life. She reports that she also has some left arm numbness intermittently. She denies any history of weakness, facial asymmetry or difficulty with speech. She states the symptoms are coming and going. Related Data Home Medications Medication Instructions Recorded Confirmed multivitamin with minerals-folic 200 mcg PO DAILY ##150 06/01/16 02/24/24 acid 200 mcg chewable tablet (Women's Multivitamin Gummies) vitamin B12 1,000 mcg-folic acid 1,000 heidi sublingual DAILY 10/20/19 02/24/24 400 mcg sublingual lozenge ascorbic acid (vitamin C) 500 mg 500 mg PO DAILY 09/08/21 02/24/24 tablet rivaroxaban 15 mg tablet 15 mg PO QPM #30 tabs 01/01/23 02/24/24 omega-3 fatty acids 1,000 mg 1,000 mg PO DAILY 02/24/23 02/24/24 capsule (Super [place]-3) levothyroxine 88 mcg tablet 88 mcg PO DAILY #90 tabs 08/16/23 02/24/24 bisoprolol fumarate 5 mg tablet 2.5 mg (1/2 x 5 mg) PO BID #180 24 02/24/24 tabs fluticasone furoate 100 1 inh inhalation DAILY #60 ea 01/07/24 02/24/24 mcg-vilanterol 25 mcg/dose inhalation powder (Breo Ellipta) calcium carbonate (Calcium 500) 500 mg PO DAILY #90 tabs 02/25/24 potassium chloride 20 mEq 20 meq PO DAILY #90 tabs 02/25/24 tablet,extended release magnesium oxide 400 mg PO BID #60 caps 03/06/24 Ventolin HFA 90 mcg/actuation 2 puff inhalation QID PRN 03/10/24 aerosol inhaler (albuterol sulfate) shortness of breath or wheezing #18 grams Previous Rx's Medication Instructions Recorded rivaroxaban 15 mg tablet 15 mg PO QPM #30 tabs 01/01/23 levothyroxine 88 mcg tablet 88 mcg PO DAILY #90 tabs 08/16/23 bisoprolol fumarate 5 mg tablet 2.5 mg (1/2 x 5 mg) PO BID #180 11/30/23 tabs fluticasone furoate 100 1 inh inhalation DAILY #60 ea 01/07/24 mcg-vilanterol 25 mcg/dose inhalation powder (Breo Ellipta) calcium carbonate (Calcium 500) 500 mg PO DAILY #90 tabs 02/25/24 potassium chloride 20 mEq 20 meq PO DAILY #90 tabs 02/25/24 tablet,extended release magnesium oxide 400 mg PO BID #60 caps 03/06/24 Ventolin HFA 90 mcg/actuation 2 puff inhalation QID PRN 03/10/24 aerosol inhaler (albuterol sulfate) shortness of breath or wheezing #18 grams Allergies Allergy/AdvReac Type Severity Reaction Status Date / Time sulfamethoxazole AdvReac Mild NAUSEA Verified 12/22/23 13:18 trimethoprim AdvReac Mild NAUSEA Verified 12/22/23 13:18 MELISSA Inhibitors AdvReac Unknown RENAL Verified 12/22/23 13:18 INSUFFIENCIENCY benazepril AdvReac Unknown unknown Verified 12/22/23 13:18 lovastatin AdvReac Unknown LIGHTHEADED Verified 12/22/23 13:18 NESS methyldopa AdvReac Unknown unknown Verified 12/22/23 13:18 simvastatin [From Zocor] AdvReac Unknown BODY ACHES Verified 12/22/23 13:18 W/ HIGHER DOSES General Stated Complaint: Arrhythmia ERNESTO: 3 Exam Narrative Exam Narrative: Review of Systems: All systems reviewed & are unremarkable except as noted in HPI and below Well-developed, no acute distress NCAT PERRL, normal conjunctiva Irregularly irregular, hypertensive Unlabored respiratory effort, clear bilaterally Nondistended abdomen, nontender Extremities w/o deformity, no cyanosis, no edema Bilateral lower extremities with some chronic venous stasis changes no focal neurologic deficits normal strength and sensation throughout Appropriate mood and affect Course Vital Signs Vital signs: Vital Signs Pulse 116 H 02/24/24 15:15 Respiratory Rate 16 02/24/24 15:15 Blood Pressure 170/100 H 02/24/24 15:15 Pulse Oximetry 96 02/24/24 15:15 Pulse 116 H 02/24/24 15:15 Respiratory Rate 16 02/24/24 15:15 Blood Pressure 170/100 H 02/24/24 15:15 Blood Pressure Position Supine 02/24/24 15:15 Pulse Oximetry 96 02/24/24 15:15 Oxygen Delivery Method Room Air 02/24/24 15:15 Oxygen Flow Rate 0 02/24/24 15:15 Pain Level 0 02/24/24 15:15 Medical Decision Making Emergent evaluation of palpitations. Initial differential includes cardiac dysrhythmia, electrolyte derangement, hypothyroidism, alcohol use, medication noncompliance. Patient does have a history of atrial fibrillation and is on Xarelto. She is currently in A-fib. She is noted to be slightly hypertensive. She has also been complaining of head pressure and left arm numbness, however she has no focal hard findings of neurologic deficit on examination. Given her age, risk factors, will evaluate for possible CVA with a head CT. At this time patient is rate controlled and not requiring any medication. Initial plan for cardiac monitoring, blood work, head CT. 1700 Lab work reviewed. No leukocytosis or anemia. Significant electrolyte derangement with a potassium of 2.9. Calcium 5.8 and magnesium of 0.6. These seem to be new abnormalities for the patient. Her creatinine is within normal limits. Her albumin is low and this is also new for her. Corrected calcium calculation with the hypoalbuminemia is still 7, requiring IV replacement.. I have sent off PTH and ionized calcium testing. I have began IV replacement of these electrolytes. Given the significance of the derangement I suspect that this is likely the cause of the patient's increased palpitations, weakness and paresthesias. Her head CT does not demonstrate any areas of acute stroke. She will likely need multiple doses to reach normal ranges, so I have discussed with the hospitalist for admission and stabilization. Medical Records Medical records reviewed: Yes I reviewed the patient's medical records. Lab Data Lab results reviewed: Yes I reviewed the patient's lab results. Quality:SDOH Health Related Social Needs: Health related social needs details Has meals on wheels to assist with meals Critical Care Time Critical Care Time Critical Care Time: Yes Total Critical Care Time: 35 Attestation: CRITICAL CARE Upon my evaluation, this patient had a high probability of imminent or life-threatening deterioration due to hypokalemia, hypocalcemia, hypo-Magnasemia, which required my direct attention, intervention, and personal management. I have personally provided 35 minutes of critical care time exclusive of time spent on separately billable procedures. Time includes review of laboratory data, radiology results, discussion with consultants, and monitoring for potential decompensation. Interventions were performed as documented above [facility] All Active Problems (Updated 02/26/24 @ 00:01 by RAJAN CATES) Hypocalcemia (Acute) Hypokalemia (Acute) Need for referral to dentistry for poor dentition (Acute) Asthma (Chronic) chronic, clinical dx on maintenece inhalers Chronic anticoagulation (Acute) Sensorineural hearing loss, bilateral (Acute 02/05/14) Hypothyroidism (Chronic) Hypomagnesemia (Chronic 04/18/15) Hyperlipidemia (Chronic) Essential hypertension (Chronic 06/20/13) Atrial fibrillation (Chronic) Cardioversion and Amiodarone in 2011: successfull but reverted 1 week later- amiodarone Xarelto for stroke prophylaxis Medical History Hx TIA/stroke w/o resid Closed pelvic fracture Erosion of teeth History of alcoholism Umbilical hernia Vitamin D deficiency, unspecified switched to PO vitamin B12 in February 2016 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 DAVID Cardiomyopathy unclear etiology/ EF as low as 25% in 2011-back up around 50% post a.fib. rate regulated and post infection/poss. A.Fib. related vs etoh Generalized osteoarthrosis hips and knees Closed fracture of left femur (08/22/17) -2016 left periprosthetic femur fracture post fall- [place] [facility] [place]int.fix[place] Anemia (08/19/01) Surgical History Status post open reduction with internal fixation of fracture Total replacement of hip (07/08/11) LEFT Debridement, Soft Tissue (09/29/17) IRRIGATION AND DEBRIDEMENT LEFT HIP INCISION--PLACEMENT PF LANCE DRAIN ASPIRATION LEFT TKA Bilateral salpingectomy with oophorectomy Family History Mother , AGE 92 No problems noted. Father , AGE 92 Stroke Sister , AGE 93 No problems noted. Sister , AGE 89 No problems noted. Brother , AGE 90 Lung cancer Heart disease Brother , AGE 90 Heart disease Bone cancer Son Alcohol abuse Son , AT No problems noted. Son Alcohol abuse Daughter , age 64 Influenza Daughter No problems noted. Daughter No problems noted. Maternal Grandfather Alcohol abuse Paternal Grandfather , age 100 No problems noted. Maternal Grandmother , age 82 No problems noted. Paternal Grandmother , age 100 No problems noted. Social History Smoking/Tobacco Use Status: Never Smoking risk assessment performed?: Yes Alcohol Intake: current Alcohol Intake frequency: a few times a week Alcohol type: hard liquor Drug use: Never Substance use type: does not use Adopted: No Caregiver/Support person: No Foster care: No Household members: none Housing: apartment Number of Children: 5 number of grandchildren: 19 Communication Needs: Hard of Hearing and Corrective Lenses Education Level: college Details: 1 year Do you need help understanding health information?: Rarely current occupation: Retired Pets and animals: No Sexually active: No Do you think of yourself as: straight/heterosexual Current gender identity: female What is your relationship status?: How often do you talk on the phone with friends or family?: three or more times per week How often do you get together with friends or relatives?: three or more times per week How often do you attend adventist or pentecostal services?: 1-3 times per year Do you belong to any clubs or organized social groups?: yes Panel score (0-1 are the most socially isolated patients): 2 What type of physical activity do you participate in: walking Duration: 30-45 minutes/day Frequency: daily Diane/Pentecostal: Spiritism Special diane needs: No Agree to transfusion: Yes Seatbelt use: always Helmet use: No Drive 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
[2024-02-24 15:41] LABS: Abs Immature Grans 0.01 10^3/uL (0.0-0.06); Absolute Basophil Count 0.03 10^3/uL (0.0-0.2); Absolute Eosinophil Count 0.22 10^3/uL (0.0-0.7); Absolute Monocyte Count 0.53 10^3/uL (0.1-0.8); Absolute Neutrophil Count 3.02 10^3/uL (1.2-6.7); Basophils % 0.6 %; Eosinophils % 4.6 %; HCT 35.3 % (36.0-46.0); HGB 11.9 g/dL (11.2-15.7); Immature Grans % 0.2 %; Lymphocytes % 20.8 %; MCH 33.3 pg (27.0-33.0); MCHC 33.7 % (32.0-36.0); MCV 99 fL (80-95); MPV 9.6 fL (8.0-11.0); Neutrophils % 62.8 %; Platelet Count 163 10^3/uL (130-400); RBC 3.57 10^6/uL (3.93-5.22); RDW 12.9 % (11.7-14.6); RDW-SD 47.2 fL; WBC 4.81 10^3/uL (4.4-10.8)
[2024-02-24 15:57] LABS: ALT 10 U/L (14-59); AST 11 U/L (15-37); Albumin 1.9 g/dL (3.4-5.0); Alkaline Phosphatase 70 U/L (46-116); Anion Gap 9.5 mmol/L (3-11); BUN 10 mg/dL (7-18); Bilirubin, Total 0.5 mg/dL (0.2-1.0); CO2 22.5 mmol/L (21.0-32.0); CREATININE 0.7 mg/dL (0.55-1.02); Chloride 107 mmol/L (98-107); Glucose 90 mg/dL (74-106); Sodium 139 mmol/L (136-145); Total Protein 4.6 g/dL (6.4-8.2)
[2024-02-24 16:06] LABS: NT-proBNP 2555 pg/mL (<300); TSH (W/Ref FT4) 2.47 uIU/mL (0.36-3.74); Troponin I < 50 ng/L (< or =60)
[2024-02-24 16:13] LABS: Calcium 5.8 mg/dL (8.5-10.1)
[2024-02-24 16:14] LABS: Magnesium 0.6 mg/dL (1.8-2.4); Potassium 2.9 mmol/L (3.5-5.1)
[2024-02-24] MEDS: MAGNESIUM SULFATE 2 GM/50 ML BAG IVINF (16:57)
[2024-02-24] MEDS: POTASSIUM CHLORIDE 10 MEQ/100 ML BAG 100 MEQ IVINF ×2 (16:57→21:26)
[2024-02-24] MEDS: CALCIUM GLUCONATE in NaCl 1 GM/50 ML BAG IVPB (17:00)
--- NOTE | 2024-02-24 17:00 | W.PM.HP.N ---
Date of service: 02/24/24 Time of Service: 17:03 Assessment and Plan Assessment and plan (1) Hypocalcemia: Status: Acute Assessment and plan: - Patient has multiple electrolyte derangements including hypocalcemia calcium 5.8 (corrects to 7.5), Mg 0.6, albumin 1.9, total protein 4.6, and K 2.9 -Patient had history of somewhat similar electrolyte disturbances, but this was previously documented during periods of heavy alcohol use -Patient states that she has significantly decreased her alcohol intake, only consuming about 2 drinks at most 2 times a week, though she does have frequent periods where she will not drink for over a week; last drink was 02/19/2024 -While in the emergency department patient was given 20 mEq IV potassium, calcium gluconate, 2 g of IV magnesium, 25 g of albumin -Will follow-up repeat CMP and magnesium level and continue to replete as needed -Follow-up parathyroid hormone related hormone and ionized calcium -Additionally, with patient's low total protein and protein calorie malnutrition, this may all be secondary to poor p.o. intake/nutritional status -However, upon questioning the patient she states that she gets Meals on Wheels and often consumes all of the food that she is given -Appreciate nutrition consultation and recommendations (2) Hypokalemia: Status: Acute Assessment and plan: -as noted above (3) Hypomagnesemia: Status: Chronic Assessment and plan: -as noted above (4) Hypoalbuminemia: Status: Acute Assessment and plan: -as noted above (5) Protein calorie malnutrition: Status: Acute Assessment and plan: -as noted above (6) Asthma: Status: Chronic Assessment and plan: - Without acute exacerbation, will continue home inhaler regimen (7) Atrial fibrillation: Status: Chronic Assessment and plan: -Continue home Xarelto -Patient continues to complain of palpitations her heart rate again becomes elevated will consider adding rate control medication Qualifiers: Atrial fibrillation type: persistent (not longstanding) Qualified Code(s): I48.19 - Other persistent atrial fibrillation (8) Essential hypertension: Status: Chronic Assessment and plan: - Continue home antihypertensive regimen (9) Hypothyroidism: Status: Chronic Assessment and plan: - Continue home Synthroid dose (10) Heavy alcohol use: Status: Resolved History of Present Illness History of Present Illness Chief Complaint: palpitations Narrative: 84-year-old female with a past medical history of alcohol use disorder reportedly in remission, asthma, A-fib on Xarelto, hypertension, hypothyroidism and hypomagnesemia who presents emergency department complaints of palpitations. Patient states that she has a history of intermittent A-fib and that she has been compliant with her daily medication which does not include rate control med but does include Xarelto. She states that recently she has had a sensation of fluttering in her chest and just overall not feeling well but is not associated with any lightheadedness, dizziness, chest pain, shortness of breath but she does has what she describes as from mild chest pressure, and intermittent left arm numbness. She denies any weakness difficulty with speech or facial asymmetry. In the emergency department the patient was noted as being tachycardic with heart rate into the 1 teens, an EKG that showed A-fib, elevated blood pressure 170s over 100, normal respiratory rate and saturating 96% on room air. CBC was unremarkable, however CMP did show sodium of 139, potassium of 2.9, calcium 5.8, magnesium of 0.6, total protein of 4.6, albumin of 1.9. Additionally, TSH was 2.47, troponin was negative. While in the emergency department the patient was ordered 25 g of albumin, 1 g calcium gluconate, 2 g of magnesium, 20 mg equivalents of IV potassium, and had ionized calcium and parathyroid hormone related peptide labs sent. At which time emergency room physician paged hospitalist for admission for patient who presented with palpitations and A-fib who was subsequently found to have been hypokalemic, hypocalcemic, hypomagnesemic, and with apparent protein calorie malnutrition. Review of Systems All systems reviewed & are unremarkable except as noted in HPI and below PFSH All Active Problems (Updated 02/24/24 @ 17:37 by Gagandeep Betancourt MD) Protein calorie malnutrition (Acute) Hypocalcemia (Acute) Hypokalemia (Acute) Hypoalbuminemia (Acute) Need for referral to dentistry for poor dentition (Acute) Asthma (Chronic) chronic, clinical dx on maintenece inhalers Chronic anticoagulation (Acute) Sensorineural hearing loss, bilateral (Acute 02/05/14) Hypothyroidism (Chronic) Hypomagnesemia (Chronic 04/18/15) Hyperlipidemia (Chronic) Essential hypertension (Chronic 06/20/13) Atrial fibrillation (Chronic) Cardioversion and Amiodarone in 2012: successfull but reverted 1 week later- amiodarone Xarelto for stroke prophylaxis Medical History Hx TIA/stroke w/o resid Closed pelvic fracture Erosion of teeth History of alcoholism Umbilical hernia Vitamin D deficiency, unspecified switched to PO vitamin B12 in February 2016 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 DAVID Cardiomyopathy unclear etiology/ EF as low as 25% in 2011-back up around 50% post a.fib. rate regulated and post infection/poss. A.Fib. related vs etoh Generalized osteoarthrosis hips and knees Closed fracture of left femur (08/22/17) -2016 left periprosthetic femur fracture post fall- [place] [facility] [place]/int.fixation) Anemia (08/19/01) Surgical History Status post open reduction with internal fixation of fracture Total replacement of hip (07/08/11) LEFT Debridement, Soft Tissue (09/29/17) IRRIGATION AND DEBRIDEMENT LEFT HIP INCISION--PLACEMENT PF LANCE DRAIN ASPIRATION LEFT TKA Bilateral salpingectomy with oophorectomy Family History Mother , AGE 92 No problems noted. Father , AGE 92 Stroke Sister , AGE 93 No problems noted. Sister , AGE 89 No problems noted. Brother , AGE 90 Lung cancer Heart disease Brother , AGE 90 Heart disease Bone cancer Son Alcohol abuse Son , AT No problems noted. Son Alcohol abuse Daughter , age 64 Influenza Daughter No problems noted. Daughter No problems noted. Maternal Grandfather Alcohol abuse Paternal Grandfather , age 100 No problems noted. Maternal Grandmother , age 82 No problems noted. Paternal Grandmother , age 100 No problems noted. Social History Smoking/Tobacco Use Status: Never Smoking risk assessment performed?: Yes Alcohol Intake: current Alcohol Intake frequency: a few times a week Alcohol type: hard liquor Drug use: Never Substance use type: does not use Adopted: No Caregiver/Support person: No Foster care: No Household members: none Housing: apartment Number of Children: 5 number of grandchildren: 19 Communication Needs: Hard of Hearing and Corrective Lenses Education Level: college Details: 1 year Do you need help understanding health information?: Rarely current occupation: Retired Pets and animals: No Sexually active: No Do you think of yourself as: straight/heterosexual Current gender identity: female What is your relationship status?: How often do you talk on the phone with friends or family?: three or more times per week How often do you get together with friends or relatives?: three or more times per week How often do you attend episcopal or worship services?: 1-3 times per year Do you belong to any clubs or organized social groups?: yes Panel score (0-1 are the most socially isolated patients): 2 What type of physical activity do you participate in: walking Duration: 30-45 minutes/day Frequency: daily Diane/Congregational: Taoism Special diane needs: No Agree to transfusion: Yes Seatbelt use: always Helmet use: No Drive intox or ride w/intox 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 Firearms in home: No In current or past relationships, have you been: other Do you feel safe at home: Yes Do you feel safe in your relationship?: Yes Victim of physical abuse: No Victim of emotional abuse: Yes Victim of sexual abuse: No Would you like helpful sources: No Meds Allergies and Home Medications Allergies Allergy/AdvReac Type Severity Reaction Status Date / Time sulfamethoxazole AdvReac Mild NAUSEA Verified 12/22/23 13:18 trimethoprim AdvReac Mild NAUSEA Verified 12/22/23 13:18 MELISSA Inhibitors AdvReac Unknown RENAL Verified 12/22/23 13:18 INSUFFIENCIENCY benazepril AdvReac Unknown unknown Verified 12/22/23 13:18 lovastatin AdvReac Unknown LIGHTHEADED Verified 12/22/23 13:18 NESS methyldopa AdvReac Unknown unknown Verified 12/22/23 13:18 simvastatin [From Zocor] AdvReac Unknown BODY ACHES Verified 12/22/23 13:18 W/ HIGHER DOSES Home Medications Medication Instructions Recorded Confirmed Type multivitamin with minerals-folic 200 mcg PO DAILY ##150 06/01/16 12/22/23 History acid 200 mcg chewable tablet (Women's Multivitamin Gummies) vitamin B12 1,000 mcg-folic acid 1,000 heidi sublingual DAILY 10/20/19 12/22/23 History 400 mcg sublingual lozenge ascorbic acid (vitamin C) 500 mg 500 mg PO DAILY 09/08/21 12/22/23 History tablet rivaroxaban 15 mg tablet 15 mg PO QPM #30 tabs 01/01/23 12/22/23 Rx losartan 100 mg tablet 100 mg PO DAILY #90 tabs 02/24/23 12/22/23 Rx omega-3 fatty acids 1,000 mg 1,000 mg PO DAILY 02/24/23 12/22/23 History capsule (Super [place]-3) magnesium oxide 400 mg PO BID #60 caps 03/31/23 12/22/23 Rx levothyroxine 88 mcg tablet 88 mcg PO DAILY #90 tabs 08/16/23 12/22/23 Rx bisoprolol fumarate 5 mg tablet 2.5 mg (1/2 x 5 mg) PO BID #180 11/30/23 12/22/23 Rx tabs Ventolin HFA 90 mcg/actuation 2 puff inhalation QID PRN 12/20/23 12/22/23 Rx aerosol inhaler (albuterol sulfate) shortness of breath or wheezing #18 grams fluticasone furoate 100 1 inh inhalation DAILY #60 ea 01/07/24 Rx mcg-vilanterol 25 mcg/dose inhalation powder (Breo Ellipta) cetirizine 10 mg capsule 10 mg PO DAILY #90 caps 02/17/24 Rx Exam Narrative Exam Narrative: Well-appearing older female laying in bed in no acute distress, ANO x 4, heart regular rhythm, lungs clear to auscultation bilaterally, abdomen soft, nontender, nondistended Results Labs 02/24/24 15:25 02/24/24 15:25 Labs: Laboratory Results - last 24 hr 02/24/24 02/24/24 15:25 18:32 WBC 4.81 RBC 3.57 L Hgb 11.9 Hct 35.3 L MCV 99 H MCH 33.3 H MCHC 33.7 RDW 12.9 Plt Count 163 MPV 9.6 Immature Gran % 0.2 Neutrophils % 62.8 Lymphocytes % 20.8 Monocytes % 11.0 Eosinophils % 4.6 Basophils % 0.6 Nucleated RBC % 0.0 Absolute Neutrophils 3.02 Absolute Lymphocytes 1.00 L Absolute Monocytes 0.53 Absolute Eosinophils 0.22 Absolute Basophils 0.03 Sodium 139 Potassium 2.9 L* Chloride 107 Carbon Dioxide 22.5 Anion Gap 9.5 BUN 10 Creatinine 0.7 Est GFR (CKD-EPI 2020) 84.70 Glucose 90 Calcium 5.8 L* Magnesium 0.6 L* Total Bilirubin 0.5 AST 11 L ALT 10 L Alkaline Phosphatase 70 Troponin I < 50 Cancelled NT-Pro-B Natriuret Pep 2555 H Total Protein 4.6 L Albumin 1.9 L TSH 2.47 Last Vital Signs Pulse 116 H 02/24/24 15:15 Resp 16 02/24/24 15:15 BP 170/100 H 02/24/24 15:15 Pulse Ox 96 02/24/24 15:15 Time Spent Time spent with Patient: >75 minutes Time was spent: preparing to see the patient(eg.review tests), obtaining and/or reviewing separately otained hiistory, ordering medications,tests, procedures, referring, communicating with other health personal care worker, indepentently interpreting results, counseling the patient and care coordination
[2024-02-24] MEDS: ALBUMIN HUMAN 25 GM/100 ML BTL IVPB (18:39)
[2024-02-24 18:40] VITALS: BP 157/87; PULSE 100; RESP 16; O2SAT 98
[2024-02-24 18:52] VITALS: BP 148/81; PULSE 105; RESP 18; TEMP 36.9; O2SAT 97
[2024-02-24 18:54] VITALS: BP 157/87; PULSE 100; RESP 16; TEMP 36.9; O2SAT 98
[2024-02-24 19:10] VITALS: BP 157/87; PULSE 100; RESP 18; TEMP 36.9; O2SAT 98
[2024-02-24] MEDS: Normal Saline Flush 10 ML SYR IVP (19:17)
[2024-02-24 23:56] VITALS: BP 130/81; PULSE 80; RESP 18; TEMP 36.5; O2SAT 98
[2024-02-25 03:30] VITALS: BP 149/89; PULSE 92; RESP 16; TEMP 36.6; O2SAT 96
[2024-02-25 06:54] LABS: HCT 35.4 % (36.0-46.0); MCH 33.1 pg (27.0-33.0); MCHC 33.9 % (32.0-36.0); MCV 98 fL (80-95); MPV 9.9 fL (8.0-11.0); Platelet Count 149 10^3/uL (130-400); RBC 3.63 10^6/uL (3.93-5.22); RDW 12.8 % (11.7-14.6); RDW-SD 46.4 fL; WBC 4.77 10^3/uL (4.4-10.8)
[2024-02-25 07:15] LABS: ALT 11 U/L (14-59); AST 13 U/L (15-37); Albumin 3.3 g/dL (3.4-5.0); Alkaline Phosphatase 88 U/L (46-116); Anion Gap 7.2 mmol/L (3-11); BUN 10 mg/dL (7-18); CO2 25.8 mmol/L (21.0-32.0); CREATININE 0.9 mg/dL (0.55-1.02); Chloride 98 mmol/L (98-107); Estimated GFR 62.65 (mL/min/1.73m2); Glucose 98 mg/dL (74-106); Magnesium 1.5 mg/dL (1.8-2.4); Potassium 4.9 mmol/L (3.5-5.1); Sodium 131 mmol/L (136-145); Total Protein 6.8 g/dL (6.4-8.2)
[2024-02-25 07:39] VITALS: BP 131/77; PULSE 91; RESP 17; TEMP 36.5; O2SAT 96
--- NOTE | 2024-02-25 10:04 | PDOC.CMIN ---
Date of service: 02/25/24 Time of Service: 10:04 Care Management Initial Assmt Initial Assessment Reason for Hospitalization: atrial fibrillation with RVR Functional Status/Living Situation Town of Residence: [place] Resides with: Alone Advance Directives Advance Directives: Do you have an Advance Directive: Y 01/12/19 10:54 AD On File at [facility]: Y 01/12/19 10:54 Date Asked 02/22/24 02/22/24 15:33 AD Date Reviewed 02/24/24 02/24/24 19:55 COLST On File at [facility] COLST Date Scanned Code Status Resuscitation Status DNR/DNI Insurance Coverage/Financial Issues Insurance: Medicare ACO Member: No Care Team Visit Care Team Role Provider Type Chitra Martinez MD Primary Care Provider [facility] STAFF PHYSICIAN Carolann Cochran RDN, [facility] Other Providers QUALITY ASSURANCE TESTER Brooke Guevara Other Providers QUALITY ASSURANCE TESTER Arnav Ayala RDN Other Providers QUALITY ASSURANCE TESTER Mignon Bates MD Emergency Provider [facility] STAFF PHYSICIAN Gagandeep Betancourt MD Admit Provider [facility] STAFF PHYSICIAN Attending Provider Discharge Potential Discharge Needs: PCP F/U Appt Anticipated Barriers to Discharge: None Identified Patient/Family Education Needs: Review discharge instructions, discuss Ask Me Three Transportation: RCT Plan: Anticipate Reta will be discharged home with no new services when medically cleared. She will follow up with her PCP and plan of care and transport with family vs RCT. CM will follow and support discharge needs. PFSH All Active Problems (Updated 02/24/24 @ 18:48 by RAJAN CATES) Protein calorie malnutrition (Acute) Hypocalcemia (Acute) Hypokalemia (Acute) Hypoalbuminemia (Acute) Need for referral to dentistry for poor dentition (Acute) Asthma (Chronic) chronic, clinical dx on maintenece inhalers Chronic anticoagulation (Acute) Sensorineural hearing loss, bilateral (Acute 02/05/14) Hypothyroidism (Chronic) Hypomagnesemia (Chronic 04/18/15) Hyperlipidemia (Chronic) Essential hypertension (Chronic 06/20/13) Atrial fibrillation (Chronic) Cardioversion and Amiodarone in 2012: successfull but reverted 1 week later- amiodarone Xarelto for stroke prophylaxis Medical History Hx TIA/stroke w/o resid Closed pelvic fracture Erosion of teeth History of alcoholism Umbilical hernia Vitamin D deficiency, unspecified switched to PO vitamin B12 in February 2016 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 DAVID Cardiomyopathy unclear etiology/ EF as low as 25% in 2011-back up around 50% post a.fib. rate regulated and post infection/poss. A.Fib. related vs etoh Generalized osteoarthrosis hips and knees Closed fracture of left femur (08/22/17) left periprosthetic femur fracture post fall- treated [facility] [place] (open reduction/int.fixation) Anemia (08/19/01) Surgical History Status post open reduction with internal fixation of fracture Total replacement of hip (07/08/11) LEFT Debridement, Soft Tissue (09/29/17) IRRIGATION AND DEBRIDEMENT LEFT HIP INCISION--PLACEMENT PF LANCE DRAIN ASPIRATION LEFT TKA Bilateral salpingectomy with oophorectomy Family History Mother , AGE 92 No problems noted. Father , AGE 92 Stroke Sister , AGE 93 No problems noted. Sister , AGE 89 No problems noted. Brother , AGE 90 Lung cancer Heart disease Brother , AGE 90 Heart disease Bone cancer Son Alcohol abuse Son , AT No problems noted. Son Alcohol abuse Daughter , age 64 Influenza Daughter No problems noted. Daughter No problems noted. Maternal Grandfather Alcohol abuse Paternal Grandfather , age 100 No problems noted. Maternal Grandmother , age 82 No problems noted. Paternal Grandmother , age 100 No problems noted. Social History Smoking/Tobacco Use Status: Never Smoking risk assessment performed?: Yes Alcohol Intake: current Alcohol Intake frequency: a few times a week Alcohol type: hard liquor Drug use: Never Substance use type: does not use Adopted: No Caregiver/Support person: No Foster care: No Household members: none Housing: apartment Number of Children: 5 number of grandchildren: 19 Communication Needs: Hard of Hearing and Corrective Lenses Education Level: college Details: 1 year Do you need help understanding health information?: Rarely current occupation: Retired Pets and animals: No Sexually active: No Do you think of yourself as: straight/heterosexual Current gender identity: female What is your relationship status?: How often do you talk on the phone with friends or family?: three or more times per week How often do you get together with friends or relatives?: three or more times per week How often do you attend scientology or mormon services?: 1-3 times per year Do you belong to any clubs or organized social groups?: yes Panel score (0-1 are the most socially isolated patients): 2 What type of physical activity do you participate in: walking Duration: 30-45 minutes/day Frequency: daily Diane/Latter-Day: Latter-Day Special diane needs: No Agree to transfusion: Yes Seatbelt use: always Helmet use: No Drive intox or ride w/intox coal tram driver: No Firearms in home: No In current or past relationships, have you been: other Do you feel safe at home: Yes Do you feel safe in your relationship?: Yes Victim of physical abuse: No Victim of emotional abuse: Yes Victim of sexual abuse: No Would you like helpful sources: No SDOH(Care Management) Screening Will the Patient Participate in the Screening?: Yes Do you worry about having a steady place to live?: no In the past 12 months, have you had to go without electric, gas, oil or water in your home?: no Have you or anyone in your house had to go without enough food to eat?: no Has lack of transportation kept you from medical appointments or from doing things needed for daily living?: no Has anyone in your support network made you feel unsafe for any reason?: no Health Related Social Needs Health related social needs details: Has meals on wheels to assist with meals
--- NOTE | 2024-02-25 10:50 | DSE_ITS ---
Date of service: 02/25/24 Time of Service: 11:09 DS: Diagnosis Discharge Diagnosis (1) Hypocalcemia: Status: Acute Asessment and Plan: Patient initially presented with palpitations briefly elevated heart rate secondary to A-fib however she was admitted due to combination of hypocalcemia, hypokalemia, hypomagnesemia, and hypoalbuminemia. All of those were repleted in the emergency department and upon reviewing labs in the morning of 02/25/2024 all are significantly improved. Based on this, it is likely that patient appears to have some electrolyte absorption issues or dietary deficit, therefore given that she has had significant improvement of her symptoms and feels functionally back to her baseline, she is being discharged with p.o. potassium replacement, increasing her p.o. magnesium, as well as p.o. calcium. Additionally, her PCP has already ordered repeat labs for her on 02/28/2020 formal have close follow- up. (2) Hypokalemia: Status: Acute Asessment and Plan: -as noted above (3) Hypomagnesemia: Status: Chronic Asessment and Plan: -as noted above (4) Hypoalbuminemia: Status: Acute Asessment and Plan: -as noted above (5) Protein calorie malnutrition: Status: Acute (6) Asthma: Status: Chronic Asessment and Plan: -continue home regimen (7) Atrial fibrillation: Status: Chronic Asessment and Plan: -elevated heart rate on presentation was mild, only up to about 110's and was transient -patient belives that may have been due to stress/anxiety -continue home xarelto, no need for rate control medication at this time (8) Essential hypertension: Status: Chronic Asessment and Plan: -continue home regimen (9) Hypothyroidism: Status: Chronic Asessment and Plan: -continue home synthroid dose Discharge Plan Disposition Patient Disposition: Home Condition: Good Discharge Details Reason For Visit: Hypocalemia,hypokalemia,hypomagnesemia Admit Date/Time: 02/24/24 17:00 Admit Provider: Gagandeep Betancourt Attending Provider: Gagandeep Betancourt Primary Care Provider: Chitra Martinez Hospital Course Hospital Course: Patient initially presented with palpitations briefly elevated heart rate secondary to A-fib however she was admitted due to combination of hypocalcemia, hypokalemia, hypomagnesemia, and hypoalbuminemia. All of those were repleted in the emergency department and upon reviewing labs in the morning of 02/25/2024 all are significantly improved. Based on this, it is likely that patient appears to have some electrolyte absorption issues or dietary deficit, therefore given that she has had significant improvement of her symptoms and feels functionally back to her baseline, she is being discharged with p.o. potassium replacement, increasing her p.o. magnesium, as well as p.o. calcium. Additionally, her PCP has already ordered repeat labs for her on 02/28/2020 formal have close follow- up. Home Meds and New Rx's Prescriptions: New potassium chloride 20 mEq tablet extended release 20 meq PO DAILY Qty: 90 0RF calcium carbonate [Calcium 500] 500 mg calcium (1,250 mg) tablet,chewable 500 mg PO DAILY Qty: 90 0RF Continued ascorbic acid (vitamin C) 500 mg tablet 500 mg PO DAILY rivaroxaban 15 mg tablet 15 mg PO QPM Qty: 30 11RF Rx Instructions: must administer with evening meal omega-3 fatty acids [Super [place]-3] 1,000 mg capsule 1,000 mg PO DAILY magnesium oxide 400 mg magnesium capsule 400 mg PO BID Qty: 60 12RF multivit with min-folic acid [Women's Multivitamin Gummies] 200 MCG tablet,chewable 200 mcg PO DAILY Qty: 150 levothyroxine 88 mcg tablet 88 mcg PO DAILY Qty: 90 1RF bisoprolol fumarate 5 mg tablet 2.5 mg PO BID Qty: 180 3RF albuterol sulfate [Ventolin HFA] 90 mcg/actuation HFA aerosol inhaler 2 puff inhalation QID PRN (Reason: shortness of breath or wheezing) Qty: 18 2RF fluticasone furoate-vilanterol [Breo Ellipta] 100-25 mcg/dose blister with device 1 inh inhalation DAILY Qty: 60 3RF vitamin L68-vtdmp acid 1,000-400 mcg Lozenge 1,000 heidi SUBLINGUAL DAILY Discontinued cetirizine 10 mg capsule 10 mg PO DAILY Qty: 90 4RF Discharge Instructions Stand Alone Forms: Nursing Discharge Form Referrals: Chitra Martinez MD [Primary Care Provider] - (Please call the office to set up a hospital follow up within 10-14 days. I left a message with the office as well) Activity:: Activity as Tolerated Equipment/Supplies:: No Equipment Needed Diet:: As Tolerated Discharge Orders Discharge Orders: Discharge Order (Routine); Ordered 02/25/24 Ordered By: Gagandeep Betancourt DS: Summary Time Spent with Patient providing and/or coordinating discharge services: Greater than 30 minutes Status at Discharge Functional status at discharge: independent ambulation Overall status at discharge: patient is back to baseline Mental Status: mental status grossly normal Speech and Movement: speech and movement normal Mood: congruent mood Affect: normal affect Quality:SDOH Health Related Social Needs: Health related social needs details Has meals on wheel s to assist with meals Health related social needs details: Has meals on wheels to assist with meals Exam Narrative Exam Narrative: Well-appearing older female laying in bed in no acute distress, ANO x 4, heart regular rhythm, lungs clear to auscultation bilaterally, abdomen soft, nontender, nondistended Psych Mental Status: mental status grossly normal Speech and Movement: speech and movement normal Mood: congruent mood Affect: normal affect DS: Data Vitals/I&O Vitals and I&O: Vital Signs Temperature 97.7 F 02/25/24 07:39 Temperature Source Temporal Artery Scan 02/25/24 07:39 Pulse 91 H 02/25/24 07:39 Pulse Rhythm Regular 02/25/24 09:35 Respiratory Rate 17 02/25/24 07:39 Respiratory Effort Normal, Non-Labored 02/25/24 09:35 Respiratory Depth Normal 02/25/24 09:35 Respiratory Pattern Normal 02/25/24 09:35 Blood Pressure 131/77 02/25/24 07:39 Blood Pressure Position Supine 02/24/24 15:15 Pulse Oximetry 96 02/25/24 07:39 Oxygen Delivery Method Room Air 02/25/24 07:39 Oxygen Flow Rate 0 02/25/24 07:39 Pain Level 0 02/25/24 07:39 Intake & Output 02/24/24 02/25/24 02/25/24 17:59 05:59 17:59 Intake Total 400 / 400 Output Total 200 / 200 100 / 100 Balance 200 / 200 -100 / -100 Weight 135 lb 126 lb 12.8 oz Intake: IV 400 / 400 Output: Urine 200 / 200 100 / 100 Other: Urine Color Pale Yellow Yellow Urine Appearance Clear Clear Urine Odor Normal Comment voided in toilet toilet insert Voiding Methods Toilet Data Completed and Pending Labs on day of discharge: Labs from last 24 hours 02/25/24 02/24/24 02/24/24 06:36 18:32 15:25 WBC 4.77 4.81 RBC 3.63 L 3.57 L Hgb 12.0 11.9 Hct 35.4 L 35.3 L MCV 98 H 99 H MCH 33.1 H 33.3 H MCHC 33.9 33.7 RDW 12.8 12.9 Plt Count 149 163 MPV 9.9 9.6 Immature Gran % 0.2 Neutrophils % 62.8 Lymphocytes % 20.8 Monocytes % 11.0 Eosinophils % 4.6 Basophils % 0.6 Nucleated RBC % 0.0 Absolute Neutrophils 3.02 Absolute Lymphocytes 1.00 L Absolute Monocytes 0.53 Absolute Eosinophils 0.22 Absolute Basophils 0.03 Sodium 131 L 139 Potassium 4.9 D 2.9 L* Chloride 98 107 Carbon Dioxide 25.8 22.5 Anion Gap 7.2 9.5 BUN 10 10 Creatinine 0.9 0.7 Est GFR (CKD-EPI 2020) 62.65 84.70 Glucose 98 90 Calcium 9.0 5.8 L* Ionized Calcium Pending Magnesium 1.5 L 0.6 L* Total Bilirubin 1.0 0.5 AST 13 L 11 L ALT 11 L 10 L Alkaline Phosphatase 88 70 Troponin I Cancelled < 50 NT-Pro-B Natriuret Pep 2555 H Total Protein 6.8 4.6 L Albumin 3.3 L 1.9 L TSH 2.47 PTH Related Peptide Pending PFSH All Active Problems (Updated 02/24/24 @ 18:48 by RAJAN CATES) Protein calorie malnutrition (Acute) Hypocalcemia (Acute) Hypokalemia (Acute) Hypoalbuminemia (Acute) Need for referral to dentistry for poor dentition (Acute) Asthma (Chronic) chronic, clinical dx on maintenece inhalers Chronic anticoagulation (Acute) Sensorineural hearing loss, bilateral (Acute 02/05/14) Hypothyroidism (Chronic) Hypomagnesemia (Chronic 04/18/15) Hyperlipidemia (Chronic) Essential hypertension (Chronic 06/20/13) Atrial fibrillation (Chronic) Cardioversion and Amiodarone in 2012: successfull but reverted 1 week later- amiodarone Xarelto for stroke prophylaxis Medical History Hx TIA/stroke w/o resid Closed pelvic fracture Erosion of teeth History of alcoholism Umbilical hernia Vitamin D deficiency, unspecified switched to PO vitamin B12 in February 2016 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 DAVID Cardiomyopathy unclear etiology/ EF as low as 25% in 2011-back up around 50% post a.fib. rate regulated and post infection/poss. A.Fib. related vs etoh Generalized osteoarthrosis hips and knees Closed fracture of left femur (08/22/17) -2016 left periprosthetic femur fracture post fall- treated [facility] [place] (open reduction/int.fixation) Anemia (08/19/01) Surgical History Status post open reduction with internal fixation of fracture Total replacement of hip (07/08/11) LEFT Debridement, Soft Tissue (09/29/17) IRRIGATION AND DEBRIDEMENT LEFT HIP INCISION--PLACEMENT PF LANCE DRAIN ASPIRATION LEFT TKA Bilateral salpingectomy with oophorectomy Family History Mother , AGE 92 No problems noted. Father , AGE 92 Stroke Sister , AGE 93 No problems noted. Sister , AGE 89 No problems noted. Brother , AGE 90 Lung cancer Heart disease Brother , AGE 90 Heart disease Bone cancer Son Alcohol abuse Son , AT No problems noted. Son Alcohol abuse Daughter , age 64 Influenza Daughter No problems noted. Daughter No problems noted. Maternal Grandfather Alcohol abuse Paternal Grandfather , age 100 No problems noted. Maternal Grandmother , age 82 No problems noted. Paternal Grandmother , age 100 No problems noted. Social History Smoking/Tobacco Use Status: Never Smoking risk assessment performed?: Yes Alcohol Intake: current Alcohol Intake frequency: a few times a week Alcohol type: hard liquor Drug use: Never Substance use type: does not use Adopted: No Caregiver/Support person: No Foster care: No Household members: none Housing: apartment Number of Children: 5 number of grandchildren: 19 Communication Needs: Hard of Hearing and Corrective Lenses Education Level: college Details: 1 year Do you need help understanding health information?: Rarely current occupation: Retired Pets and animals: No Sexually active: No Do you think of yourself as: straight/heterosexual Current gender identity: female What is your relationship status?: How often do you talk on the phone with friends or family?: three or more times per week How often do you get together with friends or relatives?: three or more times per week How often do you attend druze or congregation services?: 1-3 times per year Do you belong to any clubs or organized social groups?: yes Panel score (0-1 are the most socially isolated patients): 2 What type of physical activity do you participate in: walking Duration: 30-45 minutes/day Frequency: daily Diane/Mu-Ism: [employer] Special diane needs: No Agree to transfusion: Yes Seatbelt use: always Helmet use: No Drive intox or ride w/intox 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 Firearms in home: No In current or past relationships, have you been: other Do you feel safe at home: Yes Do you feel safe in your relationship?: Yes Victim of physical abuse: No Victim of emotional abuse: Yes Victim of sexual abuse: No Would you like helpful sources: No Time Spent with Patient Time Spent with Patient: <45 minutes Time was spent: preparing to see the patient(eg.review tests), obtaining and/or reviewing separately otained hiistory, ordering medications,tests, procedures, referring, communicating with other health behavioral health care manager, indepentently interpreting results, counseling the patient and care coordination
--- NOTE | 2024-02-25 11:42 | W.NUTRFU ---
Date of service: 02/25/24 Time of Service: 11:15 Nutrition Note NOTE: received consult for protein calorie malnutrition concerns Pt with stable wt (57kgx 1year), although reporting a good comfortable weight for herself is usually closer to 61kg. She lives alone with relatives taking her shopping. Gets meals on wheels daily but states she stretches them into two meals and mainly snacks the remainder of the day. Fair intake with small portions ordered. Pt does not take ONS at home - will try boost here TID at meals. Encouraged her to focus on kcal and protein dense choices and gave some wt gain handouts with tips. Will monitor weights and nutrition status this admission but pt due to d/c shortly. Time Spent in Nutritional Counseling and Treatment: 10 min
--- NOTE | 2024-02-25 14:51 | PDOC.CMPRO ---
Date of service: 02/25/24 Time of Service: 14:51 Care Management Progress Note Progress Note Text Progress Note Text: Reta was admitted to [facility] yesterday with an electrolyte imbalance. She had hypokalemia, hypocalcemia and hypomagnesemia. All were repleted and she was able to be discharged today. REZA was unable to meet with her as she was discharged before she could be seen. Reta will not require any new services at home.She was given prescriptions for PO replacement of her electrolytes and will have repeat bloodwork done on 02/28/24. SDOH(Care Management) Screening Will the Patient Participate in the Screening?: Yes Do you worry about having a steady place to live?: no In the past 12 months, have you had to go without electric, gas, oil or water in your home?: no Have you or anyone in your house had to go without enough food to eat?: no Has lack of transportation kept you from medical appointments or from doing things needed for daily living?: no Has anyone in your support network made you feel unsafe for any reason?: no Health Related Social Needs Health related social needs details: Has meals on wheels to assist with meals
[2024-02-25 17:43] LABS: Ionized Calcium 1.21 mmol/L (1.14-1.35)
[2024-02-29 15:24] LABS: PTH-Related Peptide 1.5 pmol/L (< or = 4.2)
== END 2024-02-25 12:33 | disposition home or self-care (01) | DRG 641 ==
LOC: ER 17:35 → MS 18:48
PROVIDERS: Admitting Provider Family Medicine; Emergency Provider Emergency Medicine; PCP Family Medicine; Visit Provider Family Medicine
DX: E83.51 Hypocalcemia (principal); E46 Unspecified protein-calorie malnutrition; I42.9 Cardiomyopathy, unspecified; E87.6 Hypokalemia; E83.42 Hypomagnesemia; J45.909 Unspecified asthma, uncomplicated; I10 Essential (primary) hypertension; E03.9 Hypothyroidism, unspecified; F10.90 Alcohol use, unspecified, uncomplicated; Z79.01 Long term (current) use of anticoagulants; Z79.899 Other long term (current) drug therapy; H90.3 Sensorineural hearing loss, bilateral; E78.5 Hyperlipidemia, unspecified; Z86.73 Personal history of transient ischemic attack (TIA), and cerebral infarction without residual deficits; M15.9 Polyosteoarthritis, unspecified; D64.9 Anemia, unspecified; Z96.642 Presence of left artificial hip joint; E88.09 Other disorders of plasma-protein metabolism, not elsewhere classified
CPT/HCPCS: 00123; 36415; 80053; 85027; 93005; 96365; 96367; 99291; 70450; 82330; 82397; 83735; 83880; 84443; 84484; 85025; 93010; 99223; 99238; J0613; J3475; J3480; P9047

== ENCOUNTER 2024-03-01 01:51 | Outpatient (CLI) | payer MEDICARE, MEDICAID, SELFPAY ==
[2024-03-01 15:45] LABS: Abs Immature Grans 0.02 10^3/uL (0.0-0.06); Absolute Basophil Count 0.03 10^3/uL (0.0-0.2); Absolute Eosinophil Count 0.31 10^3/uL (0.0-0.7); Absolute Lymphocyte Count 1.21 10^3/uL (1.2-3.4); Absolute Monocyte Count 0.61 10^3/uL (0.1-0.8); Absolute Neutrophil Count 4.27 10^3/uL (1.2-6.7); Basophils % 0.5 %; Eosinophils % 4.8 %; HCT 37.4 % (36.0-46.0); HGB 12.9 g/dL (11.2-15.7); Immature Grans % 0.3 %; Lymphocytes % 18.8 %; MCH 33.8 pg (27.0-33.0); MCHC 34.5 % (32.0-36.0); MCV 98 fL (80-95); MPV 10.5 fL (8.0-11.0); Monocytes % 9.5 %; Neutrophils % 66.1 %; Platelet Count 207 10^3/uL (130-400); RBC 3.82 10^6/uL (3.93-5.22); RDW 12.6 % (11.7-14.6); RDW-SD 45.2 fL; WBC 6.45 10^3/uL (4.4-10.8)
[2024-03-01 17:13] LABS: ALT 13 U/L (14-59); AST 16 U/L (15-37); Albumin 3.2 g/dL (3.4-5.0); Alkaline Phosphatase 85 U/L (46-116); Anion Gap 9.6 mmol/L (3-11); BUN 18 mg/dL (7-18); Bilirubin, Total 0.7 mg/dL (0.2-1.0); CO2 26.4 mmol/L (21.0-32.0); CREATININE 1.4 mg/dL (0.55-1.02); Calcium 9.8 mg/dL (8.5-10.1); Chloride 94 mmol/L (98-107); Estimated GFR 36.87 (mL/min/1.73m2); Glucose 118 mg/dL (74-106); Magnesium 1.2 mg/dL (1.8-2.4); Potassium 4.9 mmol/L (3.5-5.1); Sodium 130 mmol/L (136-145); Total Protein 7.3 g/dL (6.4-8.2); Vitamin B12 659 pg/mL (193-986)
== END 2024-03-01 01:52 | disposition home or self-care (01) ==
LOC: LBO 01:51
PROVIDERS: PCP Family Medicine; Visit Provider Family Medicine
DX: E83.42 Hypomagnesemia (principal); Z00.00 Encounter for general adult medical examination without abnormal findings; I10 Essential (primary) hypertension; F10.90 Alcohol use, unspecified, uncomplicated
CPT/HCPCS: 36415; 80053; 82607; 83735; 85025

== ENCOUNTER 2024-03-29 10:54 | Outpatient (CLI) | payer MEDICARE, MEDICAID, SELFPAY ==
[2024-03-29 12:35] LABS: ALT 19 U/L (14-59); AST 16 U/L (15-37); Albumin 3.1 g/dL (3.4-5.0); Alkaline Phosphatase 115 U/L (46-116); Anion Gap 7.3 mmol/L (3-11); BUN 14 mg/dL (7-18); Bilirubin, Total 0.55 mg/dL (0.2-1.0); CO2 27.7 mmol/L (21.0-32.0); CREATININE 1.2 mg/dL (0.55-1.02); Chloride 101 mmol/L (98-107); Estimated GFR 44.36 (mL/min/1.73m2); Glucose 105 mg/dL (74-106); Potassium 4.7 mmol/L (3.5-5.1); Sodium 136 mmol/L (136-145); Total Protein 7.4 g/dL (6.4-8.2)
== END 2024-03-29 10:55 | disposition home or self-care (01) ==
LOC: LOS 10:55
PROVIDERS: PCP Family Medicine; Visit Provider Family Medicine
DX: I10 Essential (primary) hypertension (principal)
CPT/HCPCS: 36415; 80053

== ENCOUNTER 2024-08-09 02:26 | Outpatient (CLI) | payer MEDICARE, MEDICAID, SELFPAY ==
[2024-08-09 12:41] LABS: ALT 14 U/L (14-59); AST 16 U/L (15-37); Alkaline Phosphatase 114 U/L (46-116); Anion Gap 7.8 mmol/L (3-11); BUN 14 mg/dL (7-18); Bilirubin, Total 0.84 mg/dL (0.2-1.0); CO2 28.2 mmol/L (21.0-32.0); CREATININE 1.2 mg/dL (0.55-1.02); Calcium 9.2 mg/dL (8.5-10.1); Chloride 90 mmol/L (98-107); Estimated GFR 44.36 (mL/min/1.73m2); Glucose 93 mg/dL (74-106); Magnesium 1.1 mg/dL (1.8-2.4); Potassium 4.6 mmol/L (3.5-5.1); Sodium 126 mmol/L (136-145); Total Protein 7.5 g/dL (6.4-8.2)
== END 2024-08-09 02:27 | disposition home or self-care (01) ==
LOC: LOS 02:26
PROVIDERS: PCP Family Medicine; Visit Provider Family Medicine
DX: E44.1 Mild protein-calorie malnutrition; E83.42 Hypomagnesemia
CPT/HCPCS: 36415; 80053; 83735

== ENCOUNTER 2024-09-12 20:46 | Inpatient (IN) | payer MEDICARE, MEDICAID, SELFPAY ==
[2024-09-12] VITALS (29 sets, daily range): BP systolic 66–131; BP diastolic 21–93; PULSE 54–100; RESP 18; TEMP 36.2; O2SAT 88–100
--- NOTE | 2024-09-12 20:45 | DI.RAD_ITS ---
Exam(s) XR PELVIS AP XR KNEE LT 3V AP,LAT,ELICIA XR FEMUR LT EXAM: XR PELVIS AP CLINICAL HISTORY: pain s/p fall. TECHNIQUE: 2D digital imaging was performed. Single AP view. COMPARISON: CR XR PELVIS AP from 10/20/2019 FINDINGS: Exam is limited by suboptimal technique and patient centering. BONES: Acute fractures are noted involving the left superior and inferior pubic rami. Acute fracture at junction of left superior pubic ramus and anterior acetabulum. There are old fracture deformitie s of above the right pubic rami. Sacrum is not well seen. No bony destructive lesion is seen. Bon es are osteoporotic. Fixation plate noted along the left femur. Old mid femoral fracture. JOINTS: No dislocation present. The SI joints are not widened. Moderate to severe degenerative mckinney ges of the right hip. Left hip prosthesis. Degenerative changes at the left knee. SOFT TISSUE: Severe atherosclerotic changes. IMPRESSION: Acute fractures of the left pubic symphysis as well as left superior acetabulum at the junction of th e pubic ramus. Intact left hip prosthesis. Hardware along the femur. No acute femoral fracture or acute knee fract ure identified. DATA REPOSITORY: RADIATION DOSE DELIVERED:
--- NOTE | 2024-09-12 20:45 | DI.CT_ITS ---
Exam(s) CT HEAD CERVICAL SPINE WO EXAM: CT HEAD CERVICAL SPINE WO CLINICAL HISTORY: fall, anticoagulated. TECHNIQUE: Imaging Protocol: Axial computed tomography images with coronal and sagittal reformatted images were created and reviewed COMPARISON: No exams were available for comparison FINDINGS: Head CT Ventricles and Extra axial spaces: Normal in size and morphology for the patient's age. Hemorrhage: None. Cerebral parenchyma: No evidence of mass or acute infarct. Mild atrophy. White matter changes of small vessel disease. Small area of old infarction in the left parietal lobe again noted. Stable sm all hyperdensity noted along the posterior left falx, consistent with a hemangioma. Midline shift: None. Brainstem/Cerebellum: Normal. Calvarium: Normal. Visualized Paranasal sinuses/Mastoids: Clear. Soft tissues: Unremarkable. Cervical Spine CT BONES: Vertebral body heights are maintained. Mild degenerative retrolisthesis at C4-5 and C5-6. str aightening of normal cervical lordosis. There is no evidence of acute fracture. Severe degenerative disc changes and facet degenerative changes are seen . SOFT TISSUES: No paraspinal hematoma. The airway appears intact. No pneumothorax is seen at the lung apices. 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 C-spine CT: Advanced degenerative changes, no acute abnormality. RADIATION DOSE DELIVERED: Total DLP DATA REPOSITORY: All CT scans at this facility are submitted to the National Radiology Data Registry (NRDR) Dose Index Registry (DIR) with the [employer] (ACR). RADIATION OPTIMIZATION: All CT scans at this facility use at least one of these dose optimization te chniques: automated exposure control; mA and/or kV adjustment per patient size (includes targeted exa ms where dose is matched to clinical indication); or iterative reconstruction.
--- NOTE | 2024-09-12 20:54 | W.ED.GENAD ---
Discharge Plan Discharge Details Chief Complaint: Orthopedic Clinical Impression: Fall, Head trauma, Contusion of left hip, Contusion of knee, left, Closed pelvic fracture Primary Care Provider: Chitra Martinez ED Provider: Eliezer Jara Home Meds and New Rx's Prescriptions: No Action ascorbic acid (vitamin C) 500 mg tablet 500 mg PO DAILY cholecalciferol (vitamin D3) 50 mcg (2,000 unit) capsule 50 mcg PO DAILY protein [Ensure High Protein] Powder 1 pwd PO BID Qty: 454 3RF omega-3 fatty acids [Super [place]-3] 1,000 mg capsule 1,000 mg PO DAILY levothyroxine 88 mcg tablet 88 mcg PO DAILY Qty: 90 1RF bisoprolol fumarate 5 mg tablet 5 mg PO BID Qty: 180 3RF multivit with min-folic acid [Women's Multivitamin Gummies] 200 MCG tablet,chewable 200 mcg PO DAILY Qty: 150 magnesium oxide 400 mg magnesium capsule 400 mg PO BID Qty: 60 12RF albuterol sulfate [Ventolin HFA] 90 mcg/actuation HFA aerosol inhaler 2 puff inhalation QID PRN (Reason: shortness of breath or wheezing) Qty: 18 2RF losartan 100 mg tablet 100 mg PO DAILY Qty: 90 3RF rivaroxaban 15 mg tablet 15 mg PO QPM Qty: 90 3RF Rx Instructions: must administer with evening meal fluticasone propion-salmeterol [Advair HFA] 230-21 mcg/actuation HFA aerosol inhaler 2 puff inhalation BID Qty: 12 12RF cetirizine 10 mg tablet 10 mg PO DAILY PRN (Reason: allergy symptoms) Qty: 30 3RF fluticasone furoate-vilanterol [Breo Ellipta] 100-25 mcg/dose blister with device 1 inh inhalation DAILY Qty: 60 6RF vitamin N12-bwjzh acid 1,000-400 mcg Lozenge 1,000 heidi SUBLINGUAL DAILY potassium chloride 20 mEq tablet extended release 20 meq PO DAILY Qty: 90 0RF calcium carbonate [Calcium 500] 500 mg calcium (1,250 mg) tablet,chewable 500 mg PO DAILY Qty: 90 0RF HPI General Mode of arrival: ambulatory. Date/Time Provider Initiated Documentation: 09/12/24 20:50. Limitations to Documentation: no limitations. Information obtained by: patient. History of Present Illness 84 year old F presents to the emergency department with the chief complaint of Fall, left hip pain, described as moderate, Quality is described as aching, Patient reports no radiation. Patient started experiencing this hour(s) (1) and it has been constant. No relieving factors improve symptom(s), No exacerbating factors reported . Patient notes denies fever/chills and shortness of breath. Patient did receive the following treatments prior to arrival, none Related Data Home Medications ?Medication ?Instructions ?Recorded ?Confirmed multivitamin with minerals-folic 200 mcg PO DAILY ##150 06/01/16 06/23/24 acid 200 mcg chewable tablet (Women's Multivitamin Gummies) vitamin B12 1,000 mcg-folic acid 1,000 heidi sublingual DAILY 10/20/19 06/23/24 400 mcg sublingual lozenge ascorbic acid (vitamin C) 500 mg 500 mg PO DAILY 09/08/21 06/23/24 tablet omega-3 fatty acids 1,000 mg 1,000 mg PO DAILY 02/24/23 06/23/24 capsule (Super [place]-3) calcium carbonate (Calcium 500) 500 mg PO DAILY #90 tabs 02/25/24 06/23/24 potassium chloride 20 mEq 20 meq PO DAILY #90 tabs 02/25/24 06/23/24 tablet,extended release magnesium oxide 400 mg PO BID #60 caps 03/06/24 06/23/24 cholecalciferol (vitamin D3) 50 50 mcg PO DAILY 04/05/24 06/23/24 mcg (2,000 unit) capsule protein (Ensure High Protein oral 1 pwd PO BID #454 grams 04/05/24 06/23/24 powder) Ventolin HFA 90 mcg/actuation 2 puff inhalation QID PRN 04/10/24 06/23/24 aerosol inhaler (albuterol sulfate) shortness of breath or wheezing #18 grams losartan 100 mg tablet 100 mg PO DAILY #90 tabs 04/18/24 06/23/24 bisoprolol fumarate 5 mg tablet 5 mg PO BID #180 tabs 06/23/24 06/23/24 levothyroxine 88 mcg tablet 88 mcg PO DAILY #90 tabs 06/23/24 06/23/24 rivaroxaban 15 mg tablet 15 mg PO QPM #90 tabs 06/26/24 Advair HFA 230 mcg-21 2 puff inhalation BID #12 grams 07/07/24 mcg/actuation aerosol inhaler (fluticasone propion-salmeterol) cetirizine 10 mg tablet 10 mg PO DAILY PRN allergy 07/07/24 symptoms #30 tabs fluticasone furoate 100 1 inh inhalation DAILY #60 ea 07/26/24 mcg-vilanterol 25 mcg/dose inhalation powder (Breo Ellipta) Previous Rx's ?Medication ?Instructions ?Recorded calcium carbonate (Calcium 500) 500 mg PO DAILY #90 tabs 02/25/24 potassium chloride 20 mEq 20 meq PO DAILY #90 tabs 02/25/24 tablet,extended release magnesium oxide 400 mg PO BID #60 caps 03/06/24 protein (Ensure High Protein oral 1 pwd PO BID #454 grams 04/05/24 powder) Ventolin HFA 90 mcg/actuation 2 puff inhalation QID PRN 04/10/24 aerosol inhaler (albuterol sulfate) shortness of breath or wheezing #18 grams losartan 100 mg tablet 100 mg PO DAILY #90 tabs 04/18/24 bisoprolol fumarate 5 mg tablet 5 mg PO BID #180 tabs 06/23/24 levothyroxine 88 mcg tablet 88 mcg PO DAILY #90 tabs 06/23/24 rivaroxaban 15 mg tablet 15 mg PO QPM #90 tabs 06/26/24 Advair HFA 230 mcg-21 2 puff inhalation BID #12 grams 07/07/24 mcg/actuation aerosol inhaler (fluticasone propion-salmeterol) cetirizine 10 mg tablet 10 mg PO DAILY PRN allergy 07/07/24 symptoms #30 tabs fluticasone furoate 100 1 inh inhalation DAILY #60 ea 07/26/24 mcg-vilanterol 25 mcg/dose inhalation powder (Breo Ellipta) Allergies Allergy/AdvReac Type Severity Reaction Status Date / Time sulfamethoxazole AdvReac Mild NAUSEA Verified 09/12/24 20:53 trimethoprim AdvReac Mild NAUSEA Verified 09/12/24 20:53 MELISSA Inhibitors AdvReac Unknown RENAL Verified 09/12/24 20:53 INSUFFIENCIENCY benazepril AdvReac Unknown unknown Verified 09/12/24 20:53 lovastatin AdvReac Unknown LIGHTHEADED Verified 09/12/24 20:53 NESS methyldopa AdvReac Unknown unknown Verified 09/12/24 20:53 simvastatin (From Zocor) AdvReac Unknown BODY ACHES Verified 09/12/24 20:53 W/ HIGHER DOSES General Stated Complaint: Orthopedic ERNESTO: 3 Review of Systems All systems reviewed & are unremarkable except as noted in HPI and below Constitutional Constitutional: Denies chills, Denies fever(s) and Denies weakness Eyes Eyes: Denies loss of vision Cardiovascular Cardiovascular: Denies chest pain and Denies dyspnea Respiratory Respiratory: Denies cough and Denies dyspnea Gastrointestinal Gastrointestinal: Denies abdominal pain, Denies nausea and Denies vomiting Neurologic Neurologic: Denies loss of vision and Denies weakness Exam Const General: no acute distress Orientation: alert HENNY Head: normal to inspection Ears: external ears normal General nose exam: external nose normal Mouth: moist mucous membranes Chest Chest: no tenderness Resp Effort & Inspection: normal respiratory effort and able to speak in complete sentences Cardio Rate: regular rate GI Palpation: soft and nontender Skin General skin exam: no rashes or lesions noted Neuro General: patient alert and patient oriented x3 Extrem General: capillary refill normal Course Vital Signs Vital signs: Vital Signs Pulse 100 H 09/12/24 20:50 Respiratory Rate 18 09/12/24 20:50 Blood Pressure 131/93 H 09/12/24 20:50 Pulse Oximetry 96 09/12/24 20:50 Temperature Source Temporal Artery Scan 09/12/24 20:50 Pulse 100 H 09/12/24 20:50 Respiratory Rate 18 09/12/24 20:50 Blood Pressure 131/93 H 09/12/24 20:50 Blood Pressure Position Supine 09/12/24 20:50 Pulse Oximetry 96 09/12/24 20:50 Oxygen Delivery Method Room Air 09/12/24 20:50 Oxygen Flow Rate 0 09/12/24 20:50 Pain Level 10 09/12/24 20:50 Medical Decision Making 84-year-old female with a history of A-fib on rivaroxaban daily comes in after she was getting out of her car and slipped falling backwards onto her left hip. She did hit her head but denies loss of consciousness. She has a mild posterior headache, no scalp bleeding. She has no neck tenderness, denies any back or chest or abdomen pain. She has pain in her left hip and left knee. She is unable to move her left hip. She does have a history of prior left hip replacement per the patient. She has intact distal sensation. She has tenderness over the left knee as well. No tenderness in the foot ankle or tib-fib. Given she is on anticoagulation will obtain CT head and C-spine given her age, will also obtain left hip, left femur and left knee x-rays. Patient is hemodynamically stable, has no abdominal tenderness or chest tenderness, so doubt significant traumatic injuries to the chest or abdomen and do not feel imaging of these are indicated at this time. CAT scan of the head and C-spine showed no acute findings. Question a pelvic ring fracture though I cannot determine if this is new or old. She says she has had some pelvic fractures in the past. Her femur hardware seems intact as does her hip hardware. She has no pain in her shoulder or upper extremities, no chest or abdomen tenderness still. She still having pain in her left hip, if her x-rays are negative we will likely proceed with a CT of her pelvis. URI turnaround times quite lengthy at almost an hour and a half and still of the plain film reads but she still in pain so we will proceed with CT of the pelvis and also her femur and knee. X-ray pelvis shows likely acute appearing fractures of the left acetabulum, left superior pubic ramus and left parasymphyseal pubis. X-ray of the knees is questionable lucency in the lateral femoral condyle exclude nondisplaced fracture. They recommend CT which is still pending read.Patient did have some hypoxia into the high 80s after 2 mg of morphine so is on nasal cannula. A few minutes after the morphine she also does have soft blood pressures with systolics in the 80s, pending CT saline ordered and blood pressure responded to 101 systolic. She does note that she hasn't taken her xarelto tonight, will hold this untill images and possible surgical consults obtained depending on ct results CT pelvis shows T sahped left acetabular fx and left parasymphyseal pubis and inferior pubic ramus fractures. No acute findings in the knee or femur on the CT of his lower extremity. Will consult with orthopedics at [facility] as we do not have orthopedics on-call here erin. Patient will be signed out pending callback from consults. Differential Diagnosis Differential Diagnosis: Fracture, dislocation, TBI Medical Records Medical records reviewed: Yes I reviewed the patient's medical records. Imaging Data Radiologic Study: Attestation: I personally reviewed and interpreted this imaging study as follows: Imaging: CT Scan Radiologist's impression: IMPRESSION: 1. No acute intracranial abnormality. 2. Chronic microvascular ischemic changes. 3. Stable density in the left paracentral tentorium likely representing a meningioma no acute findings ct c spine Radiologic Study #2: Attestation: I personally reviewed and interpreted this imaging study as follows: Imaging: X-Ray Radiologist's impression: PROCEDURE INFORMATION: Exam: XR Pelvis Exam date and time: 09/12/2024 9:36 PM Age: 84 years old Clinical indication: Injury or trauma; Blunt trauma (contusions or hematomas); Left; Hip; Patient HX: Pain S/P fall TECHNIQUE: Imaging protocol: Radiologic exam of the pelvis. Views: 1 or 2 view. COMPARISON: CT PELVIC W 10/20/2019 9:00 AM FINDINGS: Bones/joints: Osteopenia. Left hip arthroplasty hardware without gross hardware complication. Acute mildly displaced fracture of the left parasymphyseal pubis. Mildly displaced acute appearing fracture at the junction of the left superior pubic ramus and anterior acetabular rim. Nondisplaced fracture of the acetabular floor penetrating the ilioischial line concerning for posterior column extension. Fracture of the left inferior pubic ramus shows adjacent periosteal new bone formation favoring nonacute fracture, favor chronic fracture with nonunion. Chronic fractures of the right superior pubic ramus, parasymphyseal pubis, and inferior pubic ramus. Moderate osteoarthritic changes in the right hip and lower lumbar spine. Soft tissues: Unremarkable. Vasculature: Severe calcific atherosclerosis. IMPRESSION: 1. Acute appearing fractures of the left acetabulum, left superior pubic ramus, and left parasymphyseal pubis. 2. Additional chronic fractures detailed above. 3. Osteopenia and osteoarthritic changes. 4. Prior left hip arthroplasty without gross hardware complication Radiologic Study #3: Attestation: I personally reviewed and interpreted this imaging study as follows: Imaging: X-Ray Radiologist's impression: PROCEDURE INFORMATION: Exam: XR Left Knee Exam date and time: 09/12/2024 9:44 PM Age: 84 years old Clinical indication: Knee; Left; Patient HX: Pain S/P fall TECHNIQUE: Imaging protocol: Radiologic exam of the left knee. Views: 3 views. COMPARISON: CT LEFT LOWER EXTREMITY W CONTRAS 09/17/2017 1:23 PM FINDINGS: Bones/joints: Osteopenia. Questionable lucency in the lateral femoral condyle near the intercondylar notch on the direct AP view, cannot exclude nondisplaced articular fracture. Consider CT as clinically indicated. Hardware fixation of the distal femur without evidence of acute hardware complication. Chondrocalcinosis in the tibiofemoral compartments suspicious for underlying CPPD, with mild osteoarthritic joint space narrowing. No gross joint effusion. Soft tissues: No acute soft tissue findings. Vasculature: Severe calcific atherosclerosis. IMPRESSION: 1. Questionable lucency in the lateral femoral , cannot exclude nondisplaced articular fracture. Consider CT for greater sensitivity/specificity as clinically indicated. 2. Additional nonemergent findings detailed above. Radiologic Study #4: Attestation: I personally reviewed and interpreted this imaging study as follows: Imaging: X-Ray Radiologist's impression: PROCEDURE INFORMATION: Exam: XR Left Femur Exam date and time: 09/12/2024 9:40 PM Age: 84 years old Clinical indication: Thigh; Left; Patient HX: Pain S/P fall TECHNIQUE: Imaging protocol: Radiologic exam of the left femur. Views: 2 views. COMPARISON: CR LEFT FEMUR 12/07/2017 10:35 AM FINDINGS: Bones/joints: Osteopenia. Left hip arthroplasty hardware and lateral femoral plate fixation without evidence of hardware complication. Old healed femoral diaphyseal fracture noted. No acute femoral fractures are evident on the current femoral views. Questionable oblique lucency in the lateral femoral condyle near the intercondylar notch on the AP view of the knee, cannot exclude nondisplaced articular fracture, please see knee x-ray report. Acute fractures in the left hemipelvis/acetabulum again noted, please see pelvic x-ray report. Chondrocalcinosis at the knee. Soft tissues: No acute soft tissue abnormalities. Vasculature: Severe calcific atherosclerosis. IMPRESSION: 1. No femoral fractures are evident on the x-rays of the femur. Questionable nondisplaced articular fracture of the lateral femoral condyle on the knee x-rays, please see knee x-ray report. Consider CT of the knee as clinically indicated. 2. Fractures in the left hemipelvis/acetabulum again noted, please see pelvic x-ray report. Radiologic Study #5: Attestation: I personally reviewed and interpreted this imaging study as follows: Imaging: CT Scan Radiologist's impression: IMPRESSION: 1. Acute T-shaped left acetabular fracture with additional acute fractures in the left parasymphyseal pubis and inferior pubic ramus. 2. Osteopenia. 3. Left hip arthroplasty and additional lateral femoral fixation plate without gross hardware complication. 4. Additional chronic fractures detailed above Lab Data Lab results reviewed: Yes I reviewed the patient's lab results. Quality:SDOH Health Related Social Needs: Health related social needs details Has meals on wheels to assist with meals PFSH All Active Problems (Updated 09/12/24 @ 23:39 by Eliezer Jara MD) Closed pelvic fracture (Acute) Contusion of knee, left (Acute) Contusion of left hip (Acute) Head trauma (Acute) Fall (Acute) Right knee sprain (Acute) Post-nasal drainage (Acute) Protein calorie malnutrition (Chronic) Hypocalcemia (Acute) Need for referral to dentistry for poor dentition (Acute) Asthma (Chronic) chronic, clinical dx on maintenece inhalers Chronic anticoagulation (Acute) Sensorineural hearing loss, bilateral (Acute 02/05/14) Hypothyroidism (Chronic) Hypomagnesemia (Chronic 04/18/15) Hyperlipidemia (Chronic) Essential hypertension (Chronic 06/20/13) Atrial fibrillation (Chronic) Cardioversion and Amiodarone in 2011: successfull but reverted 1 week later- amiodarone Xarelto for stroke prophylaxis Medical History Hx TIA/stroke w/o resid Closed pelvic fracture Erosion of teeth History of alcoholism Umbilical hernia Vitamin D deficiency, unspecified switched to PO vitamin B12 in February 2016 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 DAVID Cardiomyopathy unclear etiology/ EF as low as 25% in 2011-back up around 50% post a.fib. rate regulated and post infection/poss. A.Fib. related vs etoh Generalized osteoarthrosis hips and knees Closed fracture of left femur (08/22/17) -2016 left periprosthetic femur fracture post fall- treated [facility] (open reduction/int.fixation) Anemia (08/19/01) Surgical History Status post open reduction with internal fixation of fracture Total replacement of hip (07/08/11) LEFT Debridement, Soft Tissue (09/29/17) IRRIGATION AND DEBRIDEMENT LEFT HIP INCISION--PLACEMENT PF LANCE DRAIN ASPIRATION LEFT TKA Bilateral salpingectomy with oophorectomy Family History Mother , AGE 92 No problems noted. Father , AGE 92 Stroke Sister , AGE 93 No problems noted. Sister , AGE 89 No problems noted. Brother , AGE 90 Lung cancer Heart disease Brother , AGE 90 Heart disease Bone cancer Son Alcohol abuse Son , AT No problems noted. Son Alcohol abuse Daughter , age 64 Influenza Daughter No problems noted. Daughter No problems noted. Maternal Grandfather Alcohol abuse Paternal Grandfather , age 100 No problems noted. Maternal Grandmother , age 82 No problems noted. Paternal Grandmother , age 100 No problems noted. Social History Smoking/Tobacco Use Status: Never Smoking risk assessment performed?: Yes Alcohol Intake: current Alcohol Intake frequency: a few times a week Alcohol type: hard liquor Drug use: Never Substance use type: does not use Adopted: No Caregiver/Support person: No Foster care: No Household members: none Housing: apartment Number of Children: 5 number of grandchildren: 19 Communication Needs: Hard of Hearing and Corrective Lenses Education Level: college Details: 1 year Do you need help understanding health information?: Rarely current occupation: Retired Pets and animals: No Sexually active: No Do you think of yourself as: straight/heterosexual Current gender identity: female What is your relationship status?: How often do you talk on the phone with friends or family?: three or more times per week How often do you get together with friends or relatives?: three or more times per week How often do you attend voodoo or yazdanism services?: 1-3 times per year Do you belong to any clubs or organized social groups?: yes Panel score (0-1 are the most socially isolated patients): 2 What type of physical activity do you participate in: walking Duration: 30-45 minutes/day Frequency: daily Diane/Nondenominational: Jainism Special diane needs: No Agree to transfusion: Yes Seatbelt use: always Helmet use: No Drive intox or ride w/intox bobcat driver/labor: No Firearms in home: No In current or past relationships, have you been: other Do you feel safe at home: Yes Do you feel safe in your relationship?: Yes Victim of physical abuse: No Victim of emotional abuse: Yes Victim of sexual abuse: No Would you like helpful sources: No
[2024-09-12 21:03] LABS: Abs Immature Grans 0.11 10^3/uL (0.0-0.06); Absolute Basophil Count 0.04 10^3/uL (0.0-0.2); Absolute Eosinophil Count 0.21 10^3/uL (0.0-0.7); Absolute Lymphocyte Count 1.94 10^3/uL (1.2-3.4); Absolute Monocyte Count 0.85 10^3/uL (0.1-0.8); Basophils % 0.4 %; Eosinophils % 2.2 %; HGB 12.2 g/dL (11.2-15.7); Immature Grans % 1.1 %; Lymphocytes % 19.9 %; MCV 97 fL (80-95); MPV 9.6 fL (8.0-11.0); Monocytes % 8.7 %; Neutrophils % 67.7 %; Platelet Count 192 10^3/uL (130-400); RBC 3.81 10^6/uL (3.93-5.22); RDW 13.3 % (11.7-14.6); WBC 9.75 10^3/uL (4.4-10.8)
[2024-09-12 21:17] LABS: INR 1.2 (0.9-1.1); PTT Activated 27.2 sec (23.6-32.8); Prothrombin Time 12.1 sec (9.1-11.1)
[2024-09-12 21:19] LABS: ALT 13 U/L (14-59); AST 23 U/L (15-37); Albumin 3.1 g/dL (3.4-5.0); Alkaline Phosphatase 96 U/L (46-116); Anion Gap 14.3 mmol/L (3-11); BUN 20 mg/dL (7-18); Bilirubin, Total 0.75 mg/dL (0.2-1.0); CO2 23.7 mmol/L (21.0-32.0); CREATININE 1.6 mg/dL (0.55-1.02); Calcium 9.5 mg/dL (8.5-10.1); Chloride 94 mmol/L (98-107); Estimated GFR 31.41 (mL/min/1.73m2); Glucose 112 mg/dL (74-106); Magnesium 1.2 mg/dL (1.8-2.4); Potassium 4.1 mmol/L (3.5-5.1); Sodium 132 mmol/L (136-145); Total Protein 7.4 g/dL (6.4-8.2)
--- NOTE | 2024-09-12 21:57 | DI.VRAD_ITS ---
PROCEDURE INFORMATION: Exam: CT Head Without Contrast Exam date and time: 09/12/2024 9:17 PM Age: 84 years old Clinical indication: Injury or trauma; Blunt trauma (contusions or hematomas); Patient HX: Fall, on anticoagulants TECHNIQUE: Imaging protocol: Computed tomography of the head without contrast. COMPARISON: CT HEAD WO 02/24/2024 4:26 PM FINDINGS: Brain: Encephalomalacia in the left frontal lobe. Redemonstration of 7 mm left paracentral dural-based density just above the tentorium on the left size which appears unchanged. There are moderate periventricular and subcortical lucencies consistent with chronic microvascular ischemic changes.The recinos-white differentiation is maintained. No hemorrhage. No edema. Cerebral ventricles: No ventriculomegaly. Paranasal sinuses: Visualized sinuses are unremarkable. No fluid levels. Mastoid air cells: Visualized mastoid air cells are well aerated. Orbital cavities: Bilateral cataract surgery. Bones: Unremarkable. No acute fracture. Soft tissues: Unremarkable. Vasculature: Vascular calcifications. IMPRESSION: 1. No acute intracranial abnormality. 2. Chronic microvascular ischemic changes. 3. Stable density in the left paracentral tentorium likely representing a meningioma. PROCEDURE INFORMATION: Exam: CT Cervical Spine Without Contrast Exam date and time: 09/12/2024 9:17 PM Age: 84 years old Clinical indication: Injury or trauma; Blunt trauma (contusions or hematomas); Patient HX: Fall, on anticoagulants TECHNIQUE: Imaging protocol: Computed tomography of the cervical spine without contrast. COMPARISON: CT HEAD WO 02/24/2024 4:26 PM FINDINGS: Bones: Grade 1 anterolisthesis of C4 over C5. Multilevel degenerative disc disease. No acute fracture.There is multilevel uncovertebral and facet hypertrophy with neural foramina narrowing. Lungs: Lung apices are normal. Soft tissues: Unremarkable. IMPRESSION: No acute abnormality. Dictated and Authenticated by: Kal Ryan MD. Ordering:REMY Martins MD
[2024-09-12] MEDS: MAGNESIUM SULFATE 2 GM/50 ML BAG IV_INF (21:58)
--- NOTE | 2024-09-12 22:30 | DI.CT_ITS ---
Exam(s) CT PELVIC WO CT LOWER EXTREMITY LT WO EXAM: CT PELVIC WO CLINICAL HISTORY: left sided pelvis pain s/p fall. TECHNIQUE: Imaging Protocol: Axial computed tomography images with coronal and sagittal reformatted images were created and reviewed. CONTRAST MATERIAL: Oral: no COMPARISON: CT LEFT LOWER EXTREMITY W CONTRAS from 09/17/[address] LOWER EXTREMITY LT WO from 09/12/2024 FINDINGS: Bladder: Symmetric distention, no gross wall thickening. Bowel: No obstruction or bowel wall thickening. Diverticulosis. Peritoneal cavity: No ascites, collection or mesenteric inflammatory response. Reproductive: Unremarkable. Soft tissues: Severe vascular calcifications. Significant muscular atrophy. Small fat in hernia a nterior midline. Bones: Nondisplaced acute fractures through the left pubic symphysis. Acute fracture at the junction of the left superior pubic ramus the junction of the acetabulum. The fracture extends through the anterior and posterior portions of the acetabulum. Mildly displaced fracture of the left inferior pubic lalita s. Old right pubic fractures and sacral fractures. Acute sacral fracture is identified The bones appear osteopenic. There is a left hip prosthesis which show satisfactory alignment. Ther e is a fixation plate along the lateral aspect of the femur, from the level of the trochanter through the lateral femoral condyle. There is an old fracture in the mid to distal 3rd of the femur. No ac javy femoral fracture is identified. There are degenerative changes of the right hip and lower lumbar spine. IMPRESSION: Acute fracture of the left posterior acetabulum extending anteriorly through the junction of the left superior pubic ramus. Additional acute fractures of the inferior pubic ramus and parasymphyseal reg ion of the pubic symphysis. No additional acute fractures in the sacrum or femur. RADIATION DOSE DELIVERED: 609.65mGy.cmTotal DLP DATA REPOSITORY: All CT scans at this facility are submitted to the National Radiology Data Registry (NRDR) Dose Index Registry (DIR) with the [employer] (ACR). RADIATION OPTIMIZATION: All CT scans at this facility use at least one of these dose optimization te chniques: automated exposure control; mA and/or kV adjustment per patient size (includes targeted exa ms where dose is matched to clinical indication); or iterative reconstruction.
[2024-09-12] MEDS: MORPHine 10 MG/ML VIAL 2 MG IVP (22:35)
--- NOTE | 2024-09-12 23:11 | DI.VRAD_ITS ---
PROCEDURE INFORMATION: Exam: XR Pelvis Exam date and time: 09/12/2024 9:36 PM Age: 84 years old Clinical indication: Injury or trauma; Blunt trauma (contusions or hematomas); Left; Hip; Patient HX: Pain S/P fall TECHNIQUE: Imaging protocol: Radiologic exam of the pelvis. Views: 1 or 2 view. COMPARISON: CT PELVIC W 10/20/2019 9:00 AM FINDINGS: Bones/joints: Osteopenia. Left hip arthroplasty hardware without gross hardware complication. Acute mildly displaced fracture of the left parasymphyseal pubis. Mildly displaced acute appearing fracture at the junction of the left superior pubic ramus and anterior acetabular rim. Nondisplaced fracture of the acetabular floor penetrating the ilioischial line concerning for posterior column extension. Fracture of the left inferior pubic ramus shows adjacent periosteal new bone formation favoring nonacute fracture, favor chronic fracture with nonunion. Chronic fractures of the right superior pubic ramus, parasymphyseal pubis, and inferior pubic ramus. Moderate osteoarthritic changes in the right hip and lower lumbar spine. Soft tissues: Unremarkable. Vasculature: Severe calcific atherosclerosis. IMPRESSION: 1. Acute appearing fractures of the left acetabulum, left superior pubic ramus, and left parasymphyseal pubis. 2. Additional chronic fractures detailed above. 3. Osteopenia and osteoarthritic changes. 4. Prior left hip arthroplasty without gross hardware complication. Dictated and Authenticated by: Jeffery Ibarra MD. Ordering:REMY Martins MD
[2024-09-12] MEDS: Normal Saline 250 ML 500 ML IV (23:17)
--- NOTE | 2024-09-12 23:19 | DI.VRAD_ITS ---
PROCEDURE INFORMATION: Exam: XR Left Knee Exam date and time: 09/12/2024 9:44 PM Age: 84 years old Clinical indication: Knee; Left; Patient HX: Pain S/P fall TECHNIQUE: Imaging protocol: Radiologic exam of the left knee. Views: 3 views. COMPARISON: CT LEFT LOWER EXTREMITY W CONTRAS 09/17/2017 1:23 PM FINDINGS: Bones/joints: Osteopenia. Questionable lucency in the lateral femoral condyle near the intercondylar notch on the direct AP view, cannot exclude nondisplaced articular fracture. Consider CT as clinically indicated. Hardware fixation of the distal femur without evidence of acute hardware complication. Chondrocalcinosis in the tibiofemoral compartments suspicious for underlying CPPD, with mild osteoarthritic joint space narrowing. No gross joint effusion. Soft tissues: No acute soft tissue findings. Vasculature: Severe calcific atherosclerosis. IMPRESSION: 1. Questionable lucency in the lateral femoral , cannot exclude nondisplaced articular fracture. Consider CT for greater sensitivity/specificity as clinically indicated. 2. Additional nonemergent findings detailed above. Dictated and Authenticated by: Jeffery Ibarra MD. Ordering:REMY Martins MD
--- NOTE | 2024-09-12 23:22 | DI.VRAD_ITS ---
PROCEDURE INFORMATION: Exam: XR Left Femur Exam date and time: 09/12/2024 9:40 PM Age: 84 years old Clinical indication: Thigh; Left; Patient HX: Pain S/P fall TECHNIQUE: Imaging protocol: Radiologic exam of the left femur. Views: 2 views. COMPARISON: CR LEFT FEMUR 12/07/2017 10:35 AM FINDINGS: Bones/joints: Osteopenia. Left hip arthroplasty hardware and lateral femoral plate fixation without evidence of hardware complication. Old healed femoral diaphyseal fracture noted. No acute femoral fractures are evident on the current femoral views. Questionable oblique lucency in the lateral femoral condyle near the intercondylar notch on the AP view of the knee, cannot exclude nondisplaced articular fracture, please see knee x-ray report. Acute fractures in the left hemipelvis/acetabulum again noted, please see pelvic x-ray report. Chondrocalcinosis at the knee. Soft tissues: No acute soft tissue abnormalities. Vasculature: Severe calcific atherosclerosis. IMPRESSION: 1. No femoral fractures are evident on the x-rays of the femur. Questionable nondisplaced articular fracture of the lateral femoral condyle on the knee x-rays, please see knee x-ray report. Consider CT of the knee as clinically indicated. 2. Fractures in the left hemipelvis/acetabulum again noted, please see pelvic x-ray report. Dictated and Authenticated by: Jeffery Ibarra MD. Ordering:REMY Martins MD
--- NOTE | 2024-09-12 23:33 | DI.VRAD_ITS ---
PROCEDURE INFORMATION: Exam: CT Pelvis Without Contrast, Skeleton Exam date and time: 09/12/2024 10:49 PM Age: 84 years old Clinical indication: Injury or trauma; Blunt trauma (contusions or hematomas); Left; Pelvic region; Injury date: 09/12/24; Injury details: Fall, pain; Prior surgery; Surgery date: 6+ months; Surgery type: Hip surgery; Patient HX: Fall pain TECHNIQUE: Imaging protocol: Computed tomography of the pelvis without contrast. Exam focused on the skeleton. Radiation optimization: All CT scans at this facility use at least one of these dose optimization techniques: automated exposure control; mA and/or kV adjustment per patient size (includes targeted exams where dose is matched to clinical indication); or iterative reconstruction. COMPARISON: XR PELVIS AP 09/12/2024 9:36 PM FINDINGS: Intestine: Moderate distal colonic diverticulosis without diverticulitis. Vasculature: Severe calcific atherosclerosis. Bones/joints: Osteopenia. Left hip arthroplasty and lateral femoral fixation hardware without acute hardware complication. Acute nondisplaced T-shaped last acetabular fracture. Acute comminuted mildly displaced fracture of the left inferior pubic ramus. Acute nondisplaced fracture of the left parasymphyseal pubis. Chronic fractures of the right pubis. Chronic appearing contour irregularity in the bilateral sacral ala suggesting chronic changes of remote prior sacral insufficiency fractures. Chronic sacral insufficiency fracture crossing the midline at the S3 segment and additional suspected chronic sacral fracture at the sacrococcygeal junction. Moderate-severe right hip osteoarthritic changes. Soft tissues: No acute soft tissue abnormalities. No hematoma. Small fatty umbilical hernia with no bowel herniation or features of strangulation. IMPRESSION: 1. Acute T-shaped left acetabular fracture with additional acute fractures in the left parasymphyseal pubis and inferior pubic ramus. 2. Osteopenia. 3. Left hip arthroplasty and additional lateral femoral fixation plate without gross hardware complication. 4. Additional chronic fractures detailed above. Dictated and Authenticated by: Jeffery Ibarra MD. Ordering:REMY Martins MD
--- NOTE | 2024-09-12 23:39 | DI.VRAD_ITS ---
PROCEDURE INFORMATION: Exam: CT Left Lower Extremity, Thigh Exam date and time: 09/12/2024 10:49 PM Age: 84 years old Clinical indication: Thigh; Left; Prior surgery; Surgery date: 6+ months; Surgery type: Femur shiraz; Patient HX: Fall, pain TECHNIQUE: Imaging protocol: CT of the left lower extremity with intravenous contrast was performed. Exam focused on the thigh. Radiation optimization: All CT scans at this facility use at least one of these dose optimization techniques: automated exposure control; mA and/or kV adjustment per patient size (includes targeted exams where dose is matched to clinical indication); or iterative reconstruction. COMPARISON: CR XR FEMUR LT 09/12/2024 9:40 PM FINDINGS: Bones/joints: Osteopenia. Left hip arthroplasty and lateral femoral fixation plate without evidence of acute hardware complication. Old healed left femoral diaphyseal fracture. No acute femoral fractures are identified. Visualized proximal tibia and fibula are intact. Acute fractures in the left hemipelvis/acetabulum again noted, please see pelvic CT report. Chondrocalcinosis at the knee suspicious for underlying CPPD. Mild-moderate osteoarthritic joint space narrowing in the tibiofemoral compartments. Soft tissues: No acute soft tissue abnormalities are identified. Vasculature: Severe calcific atherosclerosis. Bowel: Moderate distal colonic diverticulosis without diverticulitis. IMPRESSION: 1. No acute fractures in the femur. 2. Left femoral fixation hardware and left hip arthroplasty without evidence of acute hardware complication. 3. Acute fractures in the left acetabulum and hemipelvis again noted, please see pelvic CT report. 4. Osteopenia and osteoarthritic changes with chondrocalcinosis suspicious for CPPD. 5. Additional nonemergent findings detailed above. Dictated and Authenticated by: Jeffery Ibarra MD. Ordering:REMY Martins MD
[2024-09-13] VITALS (29 sets, daily range): BP systolic 100–141; BP diastolic 43–87; PULSE 64–88; RESP 15–18; TEMP 36–36.7; O2SAT 91–100
--- NOTE | 2024-09-13 01:45 | DI.RAD_ITS ---
Exam(s) XR PELVIS W OBLIQUES 3V EXAM: XR PELVIS W OBLIQUES 3V CLINICAL HISTORY: pelvic fractures. TECHNIQUE: 2D digital imaging was performed. Judet views. Two views. COMPARISON: Pelvis 02 September 2024 FINDINGS: BONES: Acute fractures are again demonstrated at the left pubic symphysis, of left superior pubic ra mus and left acetabulum no bony destructive lesion is seen. Sacrum is obscured. Bones are osteopor otic. Old right pubic ramus fractures. JOINTS: No dislocation present. The SI joints and pubic symphysis are intact. Unremarkable left hip p rosthesis. Degenerative changes of the right hip. SOFT TISSUE: Vascular calcifications IMPRESSION: Nondisplaced fractures of the left pubic symphysis, left acetabulum and junction with the left pubic ramus. DATA REPOSITORY: RADIATION DOSE DELIVERED:
--- NOTE | 2024-09-13 01:54 | ED.PROG_ITS ---
Date of service: 09/13/24 Time of Service: 01:54 Medical Decision Making Patient signed out to me after CT scan shows left acetabular fracture, left inferior pubic ramus and left parasymphyseal pubis. Case discussed with trauma as well as orthopedics at [facility]. Patient is considered a nonsurgical candidate and should heal over time. Recommendation per Ortho is to be weightbearing as tolerated but only up with a walker. She will need a PT eval. They have asked for pelvic x-ray with oblique views. Once she has been up with physical therapy and ambulated she will need repeat pelvic x-ray with oblique views as well as left hip x-ray to be sure the previous left hip replacement is stable. Case is discussed with Dr. Betancourt, hospitalist. Patient admitted to hospitalist service for further management. Quality:SDOH Health Related Social Needs: Health related social needs details Has meals on wheel s to assist with meals Discharge Plan Disposition Patient Disposition: Admit to [facility] Condition: Stable Discharge Details Clinical Impression: Fall, Closed fracture of left acetabulum, Closed fracture of left inferior pubic ramus Primary Care Provider: Chitra Martinez ED [facility] Prescriptions: No Action ascorbic acid (vitamin C) 500 mg tablet 500 mg PO DAILY cholecalciferol (vitamin D3) 50 mcg (2,000 unit) capsule 50 mcg PO DAILY protein [Ensure High Protein] Powder 1 pwd PO BID Qty: 454 3RF omega-3 fatty acids [Super [place]-3] 1,000 mg capsule 1,000 mg PO DAILY levothyroxine 88 mcg tablet 88 mcg PO DAILY Qty: 90 1RF bisoprolol fumarate 5 mg tablet 5 mg PO BID Qty: 180 3RF multivit with min-folic acid [Women's Multivitamin Gummies] 200 MCG tablet,chewable 200 mcg PO DAILY Qty: 150 magnesium oxide 400 mg magnesium capsule 400 mg PO BID Qty: 60 12RF albuterol sulfate [Ventolin HFA] 90 mcg/actuation HFA aerosol inhaler 2 puff inhalation QID PRN (Reason: shortness of breath or wheezing) Qty: 18 2RF losartan 100 mg tablet 100 mg PO DAILY Qty: 90 3RF rivaroxaban 15 mg tablet 15 mg PO QPM Qty: 90 3RF Rx Instructions: must administer with evening meal fluticasone propion-salmeterol [Advair HFA] 230-21 mcg/actuation HFA aerosol inhaler 2 puff inhalation BID Qty: 12 12RF cetirizine 10 mg tablet 10 mg PO DAILY PRN (Reason: allergy symptoms) Qty: 30 3RF fluticasone furoate-vilanterol [Breo Ellipta] 100-25 mcg/dose blister with device 1 inh inhalation DAILY Qty: 60 6RF vitamin R13-mdrti acid 1,000-400 mcg Lozenge 1,000 heidi SUBLINGUAL DAILY potassium chloride 20 mEq tablet extended release 20 meq PO DAILY Qty: 90 0RF calcium carbonate [Calcium 500] 500 mg calcium (1,250 mg) tablet,chewable 500 mg PO DAILY Qty: 90 0RF
--- NOTE | 2024-09-13 01:56 | HPE_ITS ---
Date of service: 09/13/24 Time of Service: 01:56 Assessment and Plan Assessment and plan (1) Closed pelvic fracture: Assessment and plan: - CT showed left acetabular fracture left inferior pubic ramus fracture and left parasymphyseal pubis fracture -Discussed case with [facility] orthopedic surgery who stated send on surgical management -Recommend PT consultation -Patient should ambulate as tolerated with a walker -Once she has been up and ambulating, it is recommended that she get pelvic x- rays with oblique views to assess for ongoing stability of pelvic fractures and previously surgically repaired left hip -Also recommend in-house Ortho consultation -Patient pain managed with 2 mg IV morphine every 4 hours as needed, will continue (2) Atrial fibrillation: Status: Chronic Assessment and plan: - Continue home bisoprolol and Xarelto (3) Hyperlipidemia: Status: Chronic Assessment and plan: - Continue home statin (4) Hypothyroidism: Status: Chronic Assessment and plan: - Continue home Synthroid History of Present Illness History of Present Illness Chief Complaint: fall Narrative: 84-year-old female with a past medical history of asthma, A-fib on Xarelto, hypertension, hypothyroidism and hypomagnesemia presented to the emergency department after experiencing a fall when getting out of the vehicle. Patient states she was getting out of her car and slipped and fell backwards onto her left hip. She states that she hit her head but denies losing consciousness and does have mild posterior headache but no bleeding from her scalp she also denies any neck tenderness back chest or abdominal pain does complain of left hip pain as well as knee pain. In the emergency department the patient was noted as having decreased range of motion of left lower extremity secondary to pain but shortening and external rotation were not visible. Patient was also noted as having normal vital signs, CBC and CMP however she did have a CT of her pelvis that showed T shaped left acetabular fracture and left parasymphyseal pubis fracture and inferior pubic ramus fractures. [facility] orthopedics were consulted, and they recommended nonsurgical management. However they did state that patient should be weightbearing as tolerated with a walker, and stated the patient should have pelvic x-ray with oblique views once she has been ambulated in order to assess for stability of her previously surgically repaired left hip. At which time emergency room physician paged hospitalist for admission for patient with nonsurgical pelvic fracture who will require PT and ongoing pain management. Review of Systems All systems reviewed & are unremarkable except as noted in HPI and below PFSH All Active Problems (Updated 09/13/24 @ 02:01 by Marshall Rowell MD) Closed fracture of left inferior pubic ramus (Acute) Closed fracture of left acetabulum (Acute) Fall (Acute) Right knee sprain (Acute) Post-nasal drainage (Acute) Protein calorie malnutrition (Chronic) Hypocalcemia (Acute) Need for referral to dentistry for poor dentition (Acute) Asthma (Chronic) chronic, clinical dx on maintenece inhalers Chronic anticoagulation (Acute) Sensorineural hearing loss, bilateral (Acute 02/05/14) Hypothyroidism (Chronic) Hypomagnesemia (Chronic 04/18/15) Hyperlipidemia (Chronic) Essential hypertension (Chronic 06/20/13) Atrial fibrillation (Chronic) Cardioversion and Amiodarone in 2011: successfull but reverted 1 week later- amiodarone Xarelto for stroke prophylaxis Medical History Hx TIA/stroke w/o resid Closed pelvic fracture Erosion of teeth History of alcoholism Umbilical hernia Vitamin D deficiency, unspecified switched to PO vitamin B12 in February 2016 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 DAVID Cardiomyopathy unclear etiology/ EF as low as 25% in 2011-back up around 50% post a.fib. rate regulated and post infection/poss. A.Fib. related vs etoh Generalized osteoarthrosis hips and knees Closed fracture of left femur (08/22/17) -2016 left periprosthetic femur fracture post fall- treated [facility] (open reduction/int.fixation) Anemia (08/19/01) Surgical History Status post open reduction with internal fixation of fracture Total replacement of hip (07/08/11) LEFT Debridement, Soft Tissue (09/29/17) IRRIGATION AND DEBRIDEMENT LEFT HIP INCISION--PLACEMENT PF LANCE DRAIN ASPIRATION LEFT TKA Bilateral salpingectomy with oophorectomy Family History Mother , AGE 92 No problems noted. Father , AGE 92 Stroke Sister , AGE 93 No problems noted. Sister , AGE 89 No problems noted. Brother , AGE 90 Lung cancer Heart disease Brother , AGE 90 Heart disease Bone cancer Son Alcohol abuse Son , AT No problems noted. Son Alcohol abuse Daughter , age 64 Influenza Daughter No problems noted. Daughter No problems noted. Maternal Grandfather Alcohol abuse Paternal Grandfather , age 100 No problems noted. Maternal Grandmother , age 82 No problems noted. Paternal Grandmother , age 100 No problems noted. Social History Smoking/Tobacco Use Status: Never Smoking risk assessment performed?: Yes Alcohol Intake: current Alcohol Intake frequency: a few times a week Alcohol type: hard liquor Drug use: Never Substance use type: does not use Adopted: No Caregiver/Support person: No Foster care: No Household members: none Housing: apartment Number of Children: 5 number of grandchildren: 19 Communication Needs: Hard of Hearing and Corrective Lenses Education Level: college Details: 1 year Do you need help understanding health information?: Rarely current occupation: Retired Pets and animals: No Sexually active: No Do you think of yourself as: straight/heterosexual Current gender identity: female What is your relationship status?: How often do you talk on the phone with friends or family?: three or more times per week How often do you get together with friends or relatives?: three or more times per week How often do you attend confucianist or pentecostal services?: 1-3 times per year Do you belong to any clubs or organized social groups?: yes Panel score (0-1 are the most socially isolated patients): 2 What type of physical activity do you participate in: walking Duration: 30-45 minutes/day Frequency: daily Diane/Mandaen: Episcopal Special diane needs: No Agree to transfusion: Yes Seatbelt use: always Helmet use: No Drive intox or ride w/intox refuse driver: No Firearms in home: No In current or past relationships, have you been: other Do you feel safe at home: Yes Do you feel safe in your relationship?: Yes Victim of physical abuse: No Victim of emotional abuse: Yes Victim of sexual abuse: No Would you like helpful sources: No Meds Allergies and Home Medications Allergies Allergy/AdvReac Type Severity Reaction Status Date / Time sulfamethoxazole AdvReac Mild NAUSEA Verified 09/13/24 02:32 trimethoprim AdvReac Mild NAUSEA Verified 09/13/24 02:32 MELISSA Inhibitors AdvReac Unknown RENAL Verified 09/13/24 02:32 INSUFFIENCIENCY benazepril AdvReac Unknown unknown Verified 09/13/24 02:32 lovastatin AdvReac Unknown LIGHTHEADED Verified 09/13/24 02:32 NESS methyldopa AdvReac Unknown unknown Verified 09/13/24 02:32 simvastatin (From Zocor) AdvReac Unknown BODY ACHES Verified 09/13/24 02:32 W/ HIGHER DOSES Home Medications ?Medication ?Instructions ?Recorded ?Confirmed ?Type multivitamin with minerals-folic 200 mcg PO DAILY ##150 06/01/16 09/13/24 History acid 200 mcg chewable tablet (Women's Multivitamin Gummies) vitamin B12 1,000 mcg-folic acid 1,000 heidi sublingual DAILY 10/20/19 09/13/24 History 400 mcg sublingual lozenge ascorbic acid (vitamin C) 500 mg 500 mg PO DAILY 09/08/21 09/13/24 History tablet omega-3 fatty acids 1,000 mg 1,000 mg PO DAILY 02/24/23 09/13/24 History capsule (Super [place]-3) calcium carbonate (Calcium 500) 500 mg PO DAILY #90 tabs 02/25/24 09/13/24 Rx potassium chloride 20 mEq 20 meq PO DAILY #90 tabs 02/25/24 09/13/24 Rx tablet,extended release magnesium oxide 400 mg PO BID #60 caps 03/06/24 09/13/24 Rx cholecalciferol (vitamin D3) 50 50 mcg PO DAILY 04/05/24 09/13/24 History mcg (2,000 unit) capsule protein (Ensure High Protein oral 1 pwd PO BID #454 grams 04/05/24 09/13/24 Rx powder) Ventolin HFA 90 mcg/actuation 2 puff inhalation QID PRN 04/10/24 09/13/24 Rx aerosol inhaler (albuterol sulfate) shortness of breath or wheezing #18 grams losartan 100 mg tablet 100 mg PO DAILY #90 tabs 04/18/24 06/23/24 Rx bisoprolol fumarate 5 mg tablet 5 mg PO BID #180 tabs 06/23/24 09/13/24 Rx levothyroxine 88 mcg tablet 88 mcg PO DAILY #90 tabs 06/23/24 09/13/24 Rx rivaroxaban 15 mg tablet 15 mg PO QPM #90 tabs 06/26/24 09/13/24 Rx Advair HFA 230 mcg-21 2 puff inhalation BID #12 grams 07/07/24 09/13/24 Rx mcg/actuation aerosol inhaler (fluticasone propion-salmeterol) cetirizine 10 mg tablet 10 mg PO DAILY PRN allergy 07/07/24 09/13/24 Rx symptoms #30 tabs fluticasone furoate 100 1 inh inhalation DAILY #60 ea 07/26/24 09/13/24 Rx mcg-vilanterol 25 mcg/dose inhalation powder (Breo Ellipta) Exam Narrative Exam Narrative: Elderly female laying in bed in no acute distress, ANO x 4, heart regular rhythm, lungs clear auscultation bilaterally, abdomen soft, nontender, nondistended, decreased range of motion of bilateral lower extremity secondary to pain Results Labs 09/13/24 05:53 09/12/24 20:55 Labs: Laboratory Results - last 24 hr 09/12/24 20:55 WBC 9.75 RBC 3.81 L Hgb 12.2 Hct 37.0 MCV 97 H MCH 32.0 MCHC 33.0 RDW 13.3 Plt Count 192 MPV 9.6 Immature Gran % 1.1 Neutrophils % 67.7 Lymphocytes % 19.9 Monocytes % 8.7 Eosinophils % 2.2 Basophils % 0.4 Nucleated RBC % 0.0 Absolute Neutrophils 6.60 Absolute Lymphocytes 1.94 Absolute Monocytes 0.85 H Absolute Eosinophils 0.21 Absolute Basophils 0.04 PT 12.1 H INR 1.2 H APTT 27.2 Sodium 132 L Potassium 4.1 Chloride 94 L Carbon Dioxide 23.7 Anion Gap 14.3 H BUN 20 H Creatinine 1.6 H Est GFR (CKD-EPI 2020) 31.41 Glucose 112 H Calcium 9.5 Magnesium 1.2 L Total Bilirubin 0.75 AST 23 ALT 13 L Alkaline Phosphatase 96 Total Protein 7.4 Albumin 3.1 L ABO/Rh A Positive Antibody Screen NEGATIVE Last Vital Signs Temp 97.1 F L 09/12/24 23:49 Pulse 79 09/12/24 22:21 Resp 18 09/12/24 20:50 BP 131/93 H 09/12/24 20:50 Pulse Ox 95 09/12/24 22:21 Time Spent Time spent with Patient: >75 minutes Time was spent: preparing to see the patient(eg.review tests), obtaining and/or reviewing separately otained hiistory, ordering medications,tests, procedures, referring, communicating with other health residential care officer, indepentently interpreting results, counseling the patient and care coordination
[2024-09-13] MEDS: MORPHine 10 MG/ML VIAL IVP (02:03)
--- NOTE | 2024-09-13 02:38 | W.PC.ACHO ---
Registration Status: Primary Language: Preferred Language: ED Information & Data Chief Complaint Orthopedic 09/12/24 20:57 Other Complaint Fall/Non TraumaCriteria 09/12/24 20:50 Triage Note pt slipped in parking lot, 09/12/24 20:50 complaining of L hip pain and R shoulder pain. Head strike. 20g L forearm. 1g Ofirmev going. Pt with hx fx in same L hip. Pt A&Ox4. 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) Debridement, Soft Tissue (09/29/17) Bilateral salpingectomy with oophorectomy Most Recent Vital Signs Temperature 36.2 C L 09/12/24 23:49 Temperature Source Temporal Artery Scan 09/12/24 23:49 Pulse 67 09/13/24 02:24 Respiratory Rate 18 09/12/24 20:50 Blood Pressure 106/45 L 09/13/24 02:24 Blood Pressure Mean 65 09/13/24 02:24 Blood Pressure Position Supine 09/12/24 20:50 Pulse Oximetry 95 09/13/24 02:24 Oxygen Delivery Method Room Air 09/12/24 22:21 Oxygen Flow Rate 0 09/12/24 22:21 Pain Level 10 09/12/24 20:53 Allergies sulfamethoxazole Adverse Reaction (Mild, Verified 09/13/24 02:32) NAUSEA trimethoprim Adverse Reaction (Mild, Verified 09/13/24 02:32) NAUSEA MELISSA Inhibitors Adverse Reaction (Unknown, Verified 09/13/24 02:32) RENAL INSUFFIENCIENCY benazepril Adverse Reaction (Unknown, Verified 09/13/24 02:32) unknown lovastatin Adverse Reaction (Unknown, Verified 09/13/24 02:32) LIGHTHEADEDNESS methyldopa Adverse Reaction (Unknown, Verified 09/13/24 02:32) unknown simvastatin (From Zocor) Adverse Reaction (Unknown, Verified 09/13/24 02:32) BODY ACHES W/ HIGHER DOSES Precautions Isolation Standard precaution 09/12/24 20:53 Active Medications Generic Name Dose Route Start Last Admin Trade Name Josey PRN Reason Stop Dose Admin Morphine Sulfate 1 mg 09/13/24 01:58 09/13/24 02:03 Morphine 10 Mg/Ml Vial IVP 1 mg DIRECTED PRN Administration IV IV Catheter Type [Left Forearm Peripheral IV ] IV Catheter Gauge [Left 20 Forearm] Diagnostics 09/12/24 Range/Units 20:55 WBC 9.75 (4.4-10.8) 10^3/uL RBC 3.81 L (3.93-5.22) 10^6/uL Hgb 12.2 (11.2-15.7) g/dL Hct 37.0 (36.0-46.0) % MCV 97 H (80-95) fL MCH 32.0 (27.0-33.0) pg MCHC 33.0 (32.0-36.0) % RDW 13.3 (11.7-14.6) % Plt Count 192 (130-400) 10^3/uL MPV 9.6 (8.0-11.0) fL Immature Gran % 1.1 % Neutrophils % 67.7 % Lymphocytes % 19.9 % Monocytes % 8.7 % Eosinophils % 2.2 % Basophils % 0.4 % Nucleated RBC % 0.0 (0.0-0.3) % Absolute Neutrophils 6.60 (1.2-6.7) 10^3/uL Absolute Lymphocytes 1.94 (1.2-3.4) 10^3/uL Absolute Monocytes 0.85 H (0.1-0.8) 10^3/uL Absolute Eosinophils 0.21 (0.0-0.7) 10^3/uL Absolute Basophils 0.04 (0.0-0.2) 10^3/uL PT 12.1 H (9.1-11.1) sec INR 1.2 H (0.9-1.1) APTT 27.2 (23.6-32.8) sec Sodium 132 L (136-145) mmol/L Potassium 4.1 (3.5-5.1) mmol/L Chloride 94 L (98-107) mmol/L Carbon Dioxide 23.7 (21.0-32.0) mmol/L Anion Gap 14.3 H (3-11) mmol/L BUN 20 H (7-18) mg/dL Creatinine 1.6 H (0.55-1.02) mg/dL Est GFR (CKD-EPI 2020) 31.41 (mL/min/1.73m2) Glucose 112 H (74-106) mg/dL Calcium 9.5 (8.5-10.1) mg/dL Magnesium 1.2 L (1.8-2.4) mg/dL Total Bilirubin 0.75 (0.2-1.0) mg/dL AST 23 (15-37) U/L ALT 13 L (14-59) U/L Alkaline Phosphatase 96 (46-116) U/L Total Protein 7.4 (6.4-8.2) g/dL Albumin 3.1 L (3.4-5.0) g/dL ABO/Rh A Positive Antibody Screen NEGATIVE Intake and Output - 24 Hour Total 09/12/24 20:41 thru 09/13/24 02:31 Intake Total 310 Balance 310 Weight 58.7 kg Intake: IV 310 Falls Risk Assessment History of Falls Previous History 09/12/24 20:53 Contributing Factors Impairments,Incontinence, 09/12/24 20:53 Medications Ambulatory Aids Uses ambulatory device + 09/12/24 20:53 Tubes/Lines With any additional score 09/12/24 20:53 Gait Evaluation W/any additional score 09/12/24 20:53 Cognition No cognitive impairment 09/12/24 20:53 Fall Total Score 94 09/12/24 20:53 Level of Risk Maximum Risk 09/12/24 20:53 Problems (Last Reviewed 02/24/24 @ 15:38 by Mignon Bates MD) Hypothyroidism (Chronic) Hyperlipidemia (Chronic) Atrial fibrillation (Chronic) v v v v v v v v v Sending and/or Receiving Nurses: Please use comment section below to note any information pertinent to the patient hand-off not included above. Information / Comments: Patient is alert and oriented, hard of hearing, IV 20g left forearm, given morphine 2mg IVP, morphine 1mg IVP, magnesium 2g IV, and NS bolus of 500 ml. Current VS: HR 73 bpm, 100% on 2L via NC. Report received from: SABINA Workman.
--- NOTE | 2024-09-13 04:01 | DI.VRAD_ITS ---
PROCEDURE INFORMATION: Exam: XR Pelvis Exam date and time: 09/13/2024 2:13 AM Age: 84 years old Clinical indication: Injury or trauma; Fall; Fracture of pelvis \T\ hip; Left; Not specified; Pubis (pubic symphysis or rami); Injury date: 09/12/23; Injury details: Judet views requested, provider did not need a repeated ap; Prior surgery; Surgery date: 6+ months; Surgery type: L hip TECHNIQUE: Imaging protocol: Radiologic exam of the pelvis. Views: 3 or more views. COMPARISON: CT PELVIC WO 09/12/2024 10:49 PM FINDINGS: Bones/joints: Left hip prosthesis in left femoral hardware. No evidence of hardware complication. Acute left superior and left inferior pubic ramus fractures. Acute fracture of the medial left acetabulum. Healed fracture deformities of the right superior and right inferior pubic ramus. Right hip osteoarthritis. Soft tissues: Unremarkable. IMPRESSION: 1. Acute left superior and left inferior pubic ramus fractures. 2. Acute fracture of the medial left acetabulum. Dictated and Authenticated by: Terence Mantilla MD. Ordering:DAIANA Olivares MD
[2024-09-13 06:11] LABS: HCT 35.5 % (36.0-46.0); HGB 11.7 g/dL (11.2-15.7); MCV 97 fL (80-95); MPV 9.8 fL (8.0-11.0); Platelet Count 148 10^3/uL (130-400); RBC 3.66 10^6/uL (3.93-5.22); RDW 13.1 % (11.7-14.6); RDW-SD 47.2 fL; WBC 8.91 10^3/uL (4.4-10.8)
[2024-09-13] MEDS: Levothyroxine 88 MCG TAB PO (06:27)
[2024-09-13] MEDS: Acetaminophen 325 MG TAB PO ×3 (06:27→17:17)
[2024-09-13 06:49] LABS: Anion Gap 8.9 mmol/L (3-11); BUN 18 mg/dL (7-18); CO2 26.1 mmol/L (21.0-32.0); CREATININE 1.4 mg/dL (0.55-1.02); Calcium 9.2 mg/dL (8.5-10.1); Chloride 98 mmol/L (98-107); Estimated GFR 36.87 (mL/min/1.73m2); Glucose 106 mg/dL (74-106); Potassium 4.6 mmol/L (3.5-5.1); Sodium 133 mmol/L (136-145)
[2024-09-13] MEDS: Losartan 50 MG TAB 100 MG PO (08:30)
[2024-09-13] MEDS: Bisoprolol 5 MG TAB PO ×2 (08:30→20:22)
[2024-09-13] MEDS: Cetirizine 10 MG TAB PO (08:33)
[2024-09-13] MEDS: Normal Saline Flush 10 ML SYR IVP ×2 (08:35→20:26)
[2024-09-13] MEDS: Budesonide/Formoterol 80/4.5 6.9 GM 60 PUFF INH IH ×2 (10:53→20:13)
--- NOTE | 2024-09-13 11:20 | CHAPLAIN ---
I visited with Reta and her daughter Kim and gave Reta a prayer shawl. Reta is from [facility] and fell while she was out looking at [employer] with her son last night. She has pelvic fractures and may decided not to have surgery. I explained my role and offered support.
[2024-09-13] MEDS: oxyCODONE 5 MG TAB PO ×2 (11:44→17:17)
--- NOTE | 2024-09-13 11:45 | W.PM.PROGNOT ---
Date of Service Date of service: 09/13/24 Time of Service: 11:45 Assessment and Plan Assessment and plan (1) Closed pelvic fracture: Assessment and plan: - CT showed left acetabular fracture left inferior pubic ramus fracture and left parasymphyseal pubis fracture -Discussed case with [facility] orthopedic surgery on admission, deferring surgical management. called back today, recommended 50% weight bearing. -Recommend PT consultation, ordered -Patient should ambulate as tolerated with a walker -Once she has been up and ambulating, it is recommended that she get pelvic x-rays with oblique views to assess for ongoing stability of pelvic fractures and previously surgically repaired left hip -In-house Ortho consultation when available -Patient pain managed with 2 mg IV morphine but causes oversedation/hypoxia. Changed to 1mg and given option of oral oxycodone every 4 hours as needed. (2) Atrial fibrillation: Status: Chronic Assessment and plan: - Continue home bisoprolol and Xarelto, covers DVT prophylaxis (3) Hyponatremia: Status: Resolved Assessment and plan: Mild, chronic, no intervention (4) Hypomagnesemia: Status: Inactive Assessment and plan: Improved after replaced in ED. Follow (5) CKD stage 3b, GFR 30-44 ml/min: Assessment and plan: At recent baseline, monitor. Get PTH/phos, vitamin D given many fractures and her CKD. Subjective Subjective Patient reports: no new complaints, tolerating a regular diet and voiding w/o difficulty; denies nausea, vomiting, shortness of breath or fever Interval history since last seen: Feels okay at rest, but in a lot of pain with movement. She hasn't been out of bed yet. She knows she does not want more surgery. Exam Narrative Exam Narrative: Elderly female laying in bed in no acute distress, ANO x 4, heart regular rhythm, lungs clear auscultation bilaterally, abdomen soft, nontender, nondistended. No cyanosis or edema in extremities, feet warm. Did not attempt ROM. Objective Last Vital Signs Temp 36.4 C L 09/13/24 11:16 Pulse 80 09/13/24 11:16 Resp 15 09/13/24 11:16 BP 118/60 09/13/24 11:16 Pulse Ox 95 09/13/24 11:16 Laboratory Results - last 24 hr 09/12/24 09/13/24 20:55 05:53 WBC 9.75 8.91 RBC 3.81 L 3.66 L Hgb 12.2 11.7 Hct 37.0 35.5 L MCV 97 H 97 H MCH 32.0 32.0 MCHC 33.0 33.0 RDW 13.3 13.1 Plt Count 192 148 MPV 9.6 9.8 Immature Gran % 1.1 Neutrophils % 67.7 Lymphocytes % 19.9 Monocytes % 8.7 Eosinophils % 2.2 Basophils % 0.4 Nucleated RBC % 0.0 Absolute Neutrophils 6.60 Absolute Lymphocytes 1.94 Absolute Monocytes 0.85 H Absolute Eosinophils 0.21 Absolute Basophils 0.04 PT 12.1 H INR 1.2 H APTT 27.2 Sodium 132 L 133 L Potassium 4.1 4.6 Chloride 94 L 98 Carbon Dioxide 23.7 26.1 Anion Gap 14.3 H 8.9 BUN 20 H 18 Creatinine 1.6 H 1.4 H Est GFR (CKD-EPI 2020) 31.41 36.87 Glucose 112 H 106 Calcium 9.5 9.2 Magnesium 1.2 L 2.0 Total Bilirubin 0.75 AST 23 ALT 13 L Alkaline Phosphatase 96 Total Protein 7.4 Albumin 3.1 L ABO/Rh A Positive Antibody Screen NEGATIVE PAWSS Have you Been Recently Intoxicated or Drunk Within the Last 30 days?: No Have you Ever Experienced Previous Episodes of Alcohol Withdrawal?: No Have you ever Experienced Withdrawal Seizures?: No Have you ever Experienced Delirium Tremens(DT)s?: No Have you ever undergone Alcohol Rehabilitation Treatment (i.e, inpt ot outpatient treatment programs)?: No Have you ever Experienced Blackouts?: No Have you ever Combined Alcohol with other Downers within the last 90 days?: No Have you ever Combined Alcohol with any other Substance of Abuse during the last 90 days?: No Positive Blood Alcohol level on Presentation? [PCS.BAL]: No Evidence of Increased Autonomic Activity (i.e. HR>120, tremor, sweating, agitation, nausea)?: No Result: 0 Time Spent with Patient Time Spent with Patient: 35-49 minutes Time was spent: preparing to see the patient(eg.review tests), obtaining and/or reviewing separately otained hiistory, ordering medications,tests, procedures, referring, communicating with other health health care consultant, indepentently interpreting results, counseling the patient and care coordination
--- NOTE | 2024-09-13 13:33 | IN_ITS ---
PT Notes Visit Reasons: Pelvic Fracture Physical Therapy Initial Evaluation Date: 09/13/2024 Referring Doctor: Dr. Crane PT Orders: PT CONSULT: PT eval for assistive device status post pelvic fracture Precautions: Fall risk, standard, 50% weightbearing left lower extremity, hard of hearing bilateral Patient Profile/Admitting Diagnosis: Patient is an 84-year-old female presented to the ED status post fall getting out of her son's car landing on left hip. Patient reports she did hit her head but did not lose consciousness. CT of her pelvis showed T shaped left acetabular fracture and left parasymphyseal pubis fracture and inferior pubic ramus fractures.. Ortho was consulted at [facility] who recommended 50% weightbearing and further imaging once patient is able to stand/ambulate to further assess stability of the fractures/need for surgical intervention. Patient admitted to MedSurg unit for ongoing medical management and PT consult placed PMHX: Closed fracture of left inferior pubic ramus (Acute) Closed fracture of left acetabulum (Acute) Fall (Acute) Right knee sprain (Acute) Post-nasal drainage (Acute) Protein calorie malnutrition (Chronic) Hypocalcemia (Acute) Need for referral to dentistry for poor dentition (Acute) Asthma (Chronic) chronic, clinical dx on maintenece inhalersChronic anticoagulation (Acute) Sensorineural hearing loss, bilateral (Acute 02/05/14) Hypothyroidism (Chronic) Hypomagnesemia (Chronic 04/18/15) Hyperlipidemia (Chronic) Essential hypertension (Chronic 06/20/13) Atrial fibrillation (Chronic) Cardioversion and Amiodarone in 2011: successfull but reverted 1 week later- amiodarone Xarelto for stroke prophylaxis Medical History Hx TIA/stroke w/o resid Closed pelvic fracture Erosion of teeth History of alcoholism Umbilical hernia Vitamin D deficiency, unspecified switched to PO vitamin B12 in February 2016 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 DAVID Cardiomyopathy unclear etiology/ EF as low as 25% in 2011-back up around 50% post a.fib. rate regulated and post infection/poss. A.Fib. 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 Patient is independent with ADLs/sponge bathing, light meal prep, ambulation with FWW. Patient has assistance for transportation from [facility] or family. Daughter provides laundry services and is present in the apartment when she takes a shower. Patient receives Meals on Wheels and does her shopping with [employer]. Patient reported she was attending an exercise class recently at [facility] however had to stop due to difficulty getting in and out of transportation that was provided by [employer] Equipment Owned/DME: FWW, grab bars near toilet and shower, has emergency call light system and bathroom. Subjective: Patient stated she does not want to have surgery to repair fract ures. She also reported at end of session that timing was good with her receiving medication prior. Objective: General Observation: Patient frail female semireclined in bed with pillow under bilateral lower extremities and daughter visiting. Patient is hard of hearing Mental Status: Alert and oriented x 4 pleasant agreeable to participate in evaluation Pain: Left hip/pelvis 0/10 at rest, 8/10 with movement of left lower extremity/hip and during all transitions as well as sitting at edge of bed ROM: Right Upper Extremity: Within functional limits Left Upper Extremity: Within functional limits Right Lower Extremity: Within normal limits except dorsiflexion to neutral Left Lower Extremity: Hip flexion 0-90 degrees, abduction 5 degrees, adduction 5 degrees, internal rotation to neutral, knee within normal limits, ankle dorsiflexion to neutral plantarflexion within normal limits Strength: Right Upper Extremity: Grossly 3/5 Left Upper Extremity: Grossly 3/5 Right Lower Extremity: Hip flexion: 3+/5; hip abduction: 3 -/5; hip extension: 3 -/5; knee extension: 3+/5; knee flexion: 3/5 ankle DF: 3/5 ; ankle PF: 3/5 Left Lower Extremity: Hip flexion: 2 -/5; hip abduction: 2 -/5; hip extension: 3 -/5; knee extension: 3/5; knee flexion: 3 -/5 ankle DF: 3/5 ; ankle PF: 3/5 Sensation: Intact Bed Mobility/Transfers: Rolling mod assist of 1 to the right Supine to sit mod assist of 2 Sit to supine max assist of 1 Sit to stand max assist of 2 to three-quarter stand position patient limited by increased pain left lower extremity with decreased tolerance to weightbearing Stand to sit max assist of 2 from three-quarter stand position Bed to chair unable to assess secondary to pain Gait: Unable to assess Balance: Static Sitting: Fair minus Dynamic Sitting: Poor Static Standing: Unable to assess Dynamic Standing: Unable to assess Special Tests: Mobility Limitations Standardized Measure [facility] AM-PAC 6 clicks Basic Mobility Inpatient Short Form: Raw Score: 8 CMS Score: 86.62% impairment Informed Consent/Education: Patient and daughter instructed in purpose of PT consult, goals and plan of care. Treatment: Therapeutic activity(59589) Bed mobility skills: Rolling with bilateral knee flexion and use of handrail with min assist to left and moderate assistance to right x 3 trials -Scooting with min assist of 2 and bilateral knee flexion -Bridging x 3 trials Assessment: Patient is an 84-year-old female presents with clinical signs and symptoms consistent with current/admitting diagnoses that have resulted to mobility limitations, gait instability, generalized weakness, and impairment of motor control as demonstrated by the following impairment level findings: 1. Decreased strength to left hip major muscle groups 2. Impaired sitting/standing balance 3. Limitation of joint range of motion in left hip 4. Pain in left hip/pelvis 5. Impaired functional activity tolerance sitting and standing Impairments are contributing to the following functional limitations: 1. Inability to safely ambulate without assistive device 2. Increase completion time for mobility ADL performance 3. Increased fall risk 4. Decline in bed mobility skills 5. Declining transfer skills Patient unable to tolerate standing position/weightbearing through left lower extremity and inability to unweight with bilateral upper extremities at this time. Further assessment of transfers and gait as able Patient is assessed as a moderate complexity based on the following: History: 84-year-old female with impairment level findings, functional limitations, and past medical history as indicated above Examination: Demonstrable impairment in strength, balance, and mobility level with underlying impairments and functional limitations as documented above Presentation: Evolving Decision Making: Moderate Goals: 1. Patient will roll with bilateral railings with supervision 2. Supine to sit with min assist of 1 3. Sit to supine with min assist of 1 4. Sit to stand at FWW with mod assist of 1 5. Bed to chair transfer with FWW mod assist of 1 6. Supervision with HEP Plan of Care/Treatment Plan: 1-2x/day, 7 days/week x 1 week. Plan of care has been reviewed with the MEDICAL INSURANCE COLLECTOR providing the service under Physical Therapy direction. Initiate Physical Therapy intervention for strengthening, bed mobility, transfers, gait, balance training, use of assistive device. DISCHARGE RECOMMENDATIONS: Short term SNF TREATMENT CODE/TIME: 89863, 18209/ [id number] Thank you for the opportunity to participate in the care of this patient. Aixa Kong PT [facility]
[2024-09-13] MEDS: Rivaroxaban 15 MG TABLET PO (20:23)
[2024-09-14 03:17] VITALS: BP 121/80; PULSE 63; RESP 18; TEMP 36.3; O2SAT 95
[2024-09-14] MEDS: Levothyroxine 88 MCG TAB PO (06:20)
[2024-09-14 06:40] LABS: Anion Gap 7.8 mmol/L (3-11); BUN 26 mg/dL (7-18); CO2 27.2 mmol/L (21.0-32.0); CREATININE 1.6 mg/dL (0.55-1.02); Calcium 9.1 mg/dL (8.5-10.1); Chloride 96 mmol/L (98-107); Estimated GFR 31.41 (mL/min/1.73m2); Glucose 94 mg/dL (74-106); Magnesium 1.7 mg/dL (1.8-2.4); PHOSPHORUS 3.7 mg/dL (2.6-4.7); Potassium 4.6 mmol/L (3.5-5.1); Sodium 131 mmol/L (136-145)
[2024-09-14 07:16] LABS: Vitamin D 25 Total 94.5 ng/mL (30-100)
[2024-09-14 07:43] VITALS: BP 128/79; PULSE 78; RESP 18; TEMP 36.8; O2SAT 96
[2024-09-14] MEDS: Budesonide/Formoterol 80/4.5 6.9 GM 60 PUFF INH IH ×2 (07:58→19:23)
[2024-09-14] MEDS: Bisoprolol 5 MG TAB PO ×2 (08:35→19:24)
[2024-09-14] MEDS: Losartan 50 MG TAB 100 MG PO (08:35)
[2024-09-14] MEDS: Normal Saline Flush 10 ML SYR IVP ×2 (08:35→19:24)
[2024-09-14] MEDS: oxyCODONE 5 MG TAB 2.5 MG PO (11:02)
[2024-09-14 12:01] VITALS: BP 108/65; PULSE 86; RESP 17; TEMP 36.7; O2SAT 93
--- NOTE | 2024-09-14 12:03 | NUR.NOTE ---
Nursing Note: Provider Alex made aware that pt has had minimal output. Urine is brandie. Purewick in use. Pt stating she feels dry.
--- NOTE | 2024-09-14 12:19 | PDOC.CMIN ---
Date of service: 09/14/24 Time of Service: 12:19 Care Management Initial Assmt Initial Assessment Reason for Hospitalization: s/p fall Pelvic fracture Functional Status/Living Situation Patient Presentation: Reta was admitted through the ED after a fall on 09/12 while getting out of her car. She slipped and fell backwards on to her left hip. She was unable to move her left hip. She does have a history of left hip replacement. Reta was sitting up in the bed when CM met with her. She was pleasant and easily engaged. She lives alone in the [facility]. She has [employer] workers who check on her, and she has great neighbors in the building. She has quite a bit of family that lives nearby. Reta recently attended outpatient PT. She feels she will need SNF after this fall, however. Reta is independent at baseline for her ADLs. She utilizes [facility] for shopping and appointments. Daughter does her laundry and is present in the apartment when Reta showers. Reta receives Meals on Wheels. Town of Residence: [place] Resides with: Alone Significant Other/Family: Local (She has 5 children and many grandchildren who are nearby and are supportive) Natural Supports: Family, neighbors. Employment Status: Retired Instrumental Activities of Daily Living (ADLs): Requires support with Laundry and Transportation Activities/Hobbies/SocialSupport: enjoys her family and her neighbors Physical Functioning/Mobility Assistive Device: FWW Advance Directives Advance Directives: Do you have an Advance Directive: Y 04/11/24 14:05 AD On File at [facility]: Y 04/11/24 14:05 Date Asked AD Date Reviewed 09/13/24 09/13/24 02:49 COLST On File at [facility] COLST Date Scanned Code Status Resuscitation Status DNR/DNI Insurance Coverage/Financial Issues Insurance: Medicare and Medicaid Care Team Visit Care Team Role Provider Type Chitra Martinez MD Primary Care Provider [facility] STAFF PHYSICIAN [place] Other Providers OTHER Marshall Rowell MD Emergency Provider [facility] STAFF PHYSICIAN Gagandeep Betancourt MD Admit Provider [facility] STAFF PHYSICIAN Attending Provider Discharge Potential Discharge Needs: PCP F/U Appt, Surgical F/U Appt and Other (SNF for short term rehab. Patient would prefer [facility].) Anticipated Barriers to Discharge: None Identified Patient/Family Education Needs: Review discharge instructions, discuss Ask Me Three Transportation: [facility] Transportation: Wheel chair van Plan: Anticipate that Reta will be transferred to SNF once medically stable. CM will send referral to [facility] today. PFSH All Active Problems (Updated 09/13/24 @ 11:51 by Jeffery Crane) Closed fracture of left inferior pubic ramus (Acute) Closed fracture of left acetabulum (Acute) Fall (Acute) Right knee sprain (Acute) Post-nasal drainage (Acute) Protein calorie malnutrition (Chronic) Hypocalcemia (Acute) Need for referral to dentistry for poor dentition (Acute) Asthma (Chronic) chronic, clinical dx on maintenece inhalers Chronic anticoagulation (Acute) Sensorineural hearing loss, bilateral (Acute 02/05/14) Hypothyroidism (Chronic) Hypomagnesemia (Chronic 04/18/15) Hyperlipidemia (Chronic) Essential hypertension (Chronic 06/20/13) Atrial fibrillation (Chronic) Cardioversion and Amiodarone in 2011: successfull but reverted 1 week later- amiodarone Xarelto for stroke prophylaxis Medical History (Updated 09/13/24 @ 11:51 by Jeffery Crane) CKD stage 3b, GFR 30-44 ml/min Hx TIA/stroke w/o resid Closed pelvic fracture Erosion of teeth History of alcoholism Umbilical hernia Vitamin D deficiency, unspecified switched to PO vitamin B12 in February 2016 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 DAVID Cardiomyopathy unclear etiology/ EF as low as 25% in 2011-back up around 50% post a.fib. rate regulated and post infection/poss. A.Fib. 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 Father , AGE 92 Stroke Sister , AGE 93 No problems noted. Sister , AGE 89 No problems noted. Brother , AGE 90 Lung cancer Heart disease Brother , AGE 90 Heart disease Bone cancer Son Alcohol abuse Son , AT No problems noted. Son Alcohol abuse Daughter , age 64 Influenza Daughter No problems noted. Daughter No problems noted. Maternal Grandfather Alcohol abuse Paternal Grandfather , age 100 No problems noted. Maternal Grandmother , age 82 No problems noted. Paternal Grandmother , age 100 No problems noted. Social History Smoking/Tobacco Use Status: Never Smoking risk assessment performed?: Yes Alcohol Intake: current Alcohol Intake frequency: a few times a week Alcohol type: hard liquor Drug use: Never Substance use type: does not use Adopted: No Caregiver/Support person: No Foster care: No Household members: none Housing: apartment Number of Children: 5 number of grandchildren: 19 Communication Needs: Hard of Hearing and Corrective Lenses Education Level: college Details: 1 year Do you need help understanding health information?: Rarely current occupation: Retired Pets and animals: No Sexually active: No Do you think of yourself as: straight/heterosexual Current gender identity: female What is your relationship status?: How often do you talk on the phone with friends or family?: three or more times per week How often do you get together with friends or relatives?: three or more times per week How often do you attend scientology or rastafari services?: 1-3 times per year Do you belong to any clubs or organized social groups?: yes Panel score (0-1 are the most socially isolated patients): 2 What type of physical activity do you participate in: walking Duration: 30-45 minutes/day Frequency: daily Diane/Druze: Mormon Special diane needs: No Agree to transfusion: Yes Seatbelt use: always Helmet use: No Drive intox or ride w/intox 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 Firearms in home: No In current or past relationships, have you been: other Do you feel safe at home: Yes Do you feel safe in your relationship?: Yes Victim of physical abuse: No Victim of emotional abuse: Yes Victim of sexual abuse: No Would you like helpful sources: No Readmission Within the Past 30 Days Yes or No: No SDOH(Care Management) Screening Will the Patient Participate in the Screening?: Yes Do you worry about having a steady place to live?: no In the past 12 months, have you had to go without electric, gas, oil or water in your home?: no Have you or anyone in your house had to go without enough food to eat?: no Has lack of transportation kept you from medical appointments or from doing things needed for daily living?: no Has anyone in your support network made you feel unsafe for any reason?: no Social Determinants of Health Comments(SDOH Details): Patient is on meals on wheels.
--- NOTE | 2024-09-14 14:56 | PTTR_ITS ---
PT Notes Visit Reasons: Pelvic Fracture Inpatient Physical Therapy Treatment Note [facility] Date: 09/14/2024 PRECAUTIONS: Fall risk 50% weightbearing left lower extremity SUBJECTIVE: Patient reports she is a little less pain than yesterday and was able to move her leg more easily in bed with less pain. OBJECTIVE: Patient presents in bed?quarter turn to left. Patient agreeable to participate? PAIN: Left hip 0/10 at rest ,8/10 with movement, 10/10 with stand at FWW Therapeutic Activities (27323s[]): Direct one-on-one instruction in dynamic activities to improve functional performance. ? BED MOBILITY/TRANSFERS? Rolling L/R: Mod assist Supine-sit: Mod assist of 1 with increased time? Sit-supine: Mod assist of 1 ? Sit-stand: Max assist of 1 with FWW x 1 trial ? Stand-sit: Max assist of 1? Bed-Chair: Unable? Chair-bed: Unable Provided skilled cues and instruction on performance and technique throughout. ? Therapeutic Exercises (70640r[]): Direct one-on-one instruction in therapeutic exercises to develop strength, endurance, range of motion and flexibility. ? Exercises ?Supine right lower extremity quad sets, glutes set, ankle pumps, heel slide, SAQ with large towel rolls under knee hip abduction and adduction 2 sets of 5 reps ? Provided skilled instruction in proper exercise performance ASSESSMENT: Patient demonstrated improvement in ability to get to edge of bed able to move leg more on her own with less pain as compared to initial evaluation. Patient attempted x 3 to stand at FWW however only able to tolerate full stand x 3 seconds on 1 trial. Remaining 2 trials patient unable to fully unweight buttocks from bed due to pain in left hip/pelvic area. Patient able to perform Supine TherEX with rest periods in reduced range. Patient limited by pain with flexion greater than 70 degrees and weightbearing. PLAN: 1-2x/day, 7 days/week x 1 week. Plan of care has been reviewed with the REGIONAL ACCOUNT DIRECTOR providing the service under Physical Therapy direction. Initiate Physical Therapy intervention for strengthening, bed mobility, transfers, gait, stairs, balance training, use of assistive device. TREATMENT CODE/TIME: first session [id number], second session [id number] DISCHARGE RECOMMENDATION: Short-term SNF when medically appropriate
[2024-09-14 15:08] VITALS: BP 105/59; PULSE 85; RESP 17; TEMP 36.6; O2SAT 92
--- NOTE | 2024-09-14 15:39 | PGE_ITS ---
Date of Service Date of service: 09/14/24 Time of Service: 15:40 Assessment and Plan Assessment and plan (1) Closed pelvic fracture: Assessment and plan: - CT showed left acetabular fracture left inferior pubic ramus fracture and left parasymphyseal pubis fracture -Discussed case with [facility] orthopedic surgery on admission, deferring surgical management. recommended 50% weight bearing. -PT consulted, see notes -Patient should ambulate as tolerated with a walker -Once she has been up and ambulating, it is recommended that she get pelvic x- rays with oblique views to assess for ongoing stability of pelvic fractures and previously surgically repaired left hip -In-house Ortho consultation when available -Patient pain managed with 2 mg IV morphine but causes oversedation/hypoxia. Ch anged to 1mg and given option of oral oxycodone every 4 hours as needed. (2) Atrial fibrillation: Status: Chronic Assessment and plan: - Continue home bisoprolol and Xarelto, covers DVT prophylaxis (3) Hyponatremia: Status: Resolved Assessment and plan: Mild, chronic, no intervention (4) Hypomagnesemia: Status: Resolved Assessment and plan: Improved after replaced in ED. Follow (5) CKD stage 3b, GFR 30-44 ml/min: Assessment and plan: At recent baseline, monitor. Get PTH/phos, vitamin D given many fractures and her CKD. (6) Discharge planning issues: Status: Acute Assessment and plan: case management following PT following for discharge planning anticipate discharge to care home facility discussed with Dr Crane Subjective Subjective Patient reports: no new complaints, feels better, tolerating liquids well and afebrile; denies tolerating a regular diet (appetite poor, c/o gas pains) or shortness of breath Interval history since last seen: States she was able to tolerate standing and bearing minimal weight today. Exam Narrative Exam Narrative: Frail elderly female of stated age no acute distress head is atraumatic eyes nonicteric noninjected oral mucosas slightly dry no oral exudate many missing teeth. Neck full range of motion respirations even and unlabored cardiovascular regular rate and rhythm no peripheral edema abdomen is benign moves all extremities skin is pink warm dry well-perfused Objective Last Vital Signs Temp 36.6 C 09/14/24 15:08 Pulse 85 09/14/24 15:08 Resp 17 09/14/24 15:08 BP 105/59 L 09/14/24 15:08 Pulse Ox 92 09/14/24 15:08 Laboratory Results - last 24 hr 09/14/24 06:16 Sodium 131 L Potassium 4.6 Chloride 96 L Carbon Dioxide 27.2 Anion Gap 7.8 BUN 26 H Creatinine 1.6 H Est GFR (CKD-EPI 2020) 31.41 Glucose 94 Calcium 9.1 Phosphorus 3.7 Magnesium 1.7 L 25-OH Vitamin D Total 94.5 PAWSS Have you Been Recently Intoxicated or Drunk Within the Last 30 days?: No Have you Ever Experienced Previous Episodes of Alcohol Withdrawal?: No Have you ever Experienced Withdrawal Seizures?: No Have you ever Experienced Delirium Tremens(DT)s?: No Have you ever undergone Alcohol Rehabilitation Treatment (i.e, inpt ot outpatient treatment programs)?: No Have you ever Experienced Blackouts?: No Have you ever Combined Alcohol with other Downers within the last 90 days?: No Have you ever Combined Alcohol with any other Substance of Abuse during the last 90 days?: No Positive Blood Alcohol level on Presentation? [PCS.BAL]: No Evidence of Increased Autonomic Activity (i.e. HR>120, tremor, sweating, agitation, nausea)?: No Result: 0 Time Spent with Patient Time Spent with Patient: 35-49 minutes Time was spent: preparing to see the patient(eg.review tests), obtaining and/or reviewing separately otained hiistory, ordering medications,tests, procedures, indepentently interpreting results and counseling the patient
[2024-09-14] MEDS: Simethicone 80 MG CHEW PO (15:45)
[2024-09-14] MEDS: Rivaroxaban 15 MG TABLET PO (17:06)
[2024-09-14 20:20] VITALS: BP 116/60; PULSE 100; RESP 16; TEMP 36.6; O2SAT 97
[2024-09-15 03:47] VITALS: BP 121/59; PULSE 90; RESP 16; TEMP 36.4; O2SAT 96
[2024-09-15] MEDS: Levothyroxine 88 MCG TAB PO (06:12)
[2024-09-15] MEDS: Budesonide/Formoterol 80/4.5 6.9 GM 60 PUFF INH IH ×2 (07:45→19:49)
[2024-09-15] MEDS: Bisoprolol 5 MG TAB PO ×2 (08:30→20:09)
[2024-09-15] MEDS: Losartan 50 MG TAB 100 MG PO (08:30)
[2024-09-15] MEDS: Simethicone 80 MG CHEW PO (08:30)
[2024-09-15] MEDS: Normal Saline Flush 10 ML SYR IVP ×3 (08:31→20:09)
--- NOTE | 2024-09-15 09:58 | PTTR_ITS ---
PT Notes Visit Reasons: Pelvic Fracture Inpatient Physical Therapy Treatment Note [facility] Date: 09/15/2024 PRECAUTIONS: Repeated falls. 50% PWB through the L LE with AD. Has hearing aids. SUBJECTIVE: Anxious about getting out of bed but was willing to try to do it slowly with encouragement. Per Nurse Carmela, she was goignto wait until during the interdisciplinary meeting to ask for pain medication alternatives to use on patient as taking the Oxycodone yesterday impaired patient's level of awareness. Patient did not report undue pain throughout session except for when she needed to pivot towards the chair with her good side leading, was more confident with OIL PUMP STATION OPERATOR CHIEF Evelyn coming in to help. Patient denied headache, chest pain and lightheadedness throughout session. Did report some pain in her L shoulder when she sat up at edge of bed. OBJECTIVE: Resting comfortably in bed. Mental status: A and O x 4? PAIN: Minimal to moderate pain during transfer from edge of bed to bedside recliner THERA EX: Guoded patient with safe and correct performance of isometric B hip exercises to minimize staiffness, pain, and muscle guarding prior to start of bed mobility/transfers: Gluteal sets 5 sh x 5 reps for 2 sets Quadricesp sets 5 sh x 5 reps for 2 sets Adductor squeezes 5 sh x 5 reps for 2 sets ? BED MOBILITY/TRANSFERS: Moderate cueing provided for use of B hands as needed for support, movement sequence, AD management, and posture to reduce fall risk and minimize pain report? Supine-sit: moderate assist of 1 with HOB at about 45 degrees elevated ? Sit-stand: minimal assist of 2 using FWW ? Stand-sit: minimal assist of 2 using FWW ? Bed-Chair: minimal assist of 2 using FWW ? Chair-bed: minimal assist of 2 using FWW ?? GAIT: Assistive Device: FWW WB status: 50% WB on the L LE Distance: Covered about 5 feet, pivoting.sidestepping, and backing up onto bedside recliner Cueing: Moderate cueing provided for WB through B UE onto walker to better redistribute weight of head, arms, and trunk onto walker to offload L LE ASSESSMENT: Patient demonstrated improved pain tolerance with initiation of muscle setting exercises for B hip muscles prior to mobility performance despite not having taken any pain medications earlier today. With slow movement transitions and execution, patient was able to tolerate transfer onto chair from edge of bed with good R LE leading. Some facial grimacing was noted but with cueing to redistribute weight onto B walker handles to off load L LE while slowly pivoting/sidestepping/backing up onto bedside chair, patient was able to safely make he transfer. Patient will require SNF to progress mobility level while continuing to manage pain to reduce fall risk. PLAN: 1-2x/day, 7 days/week x 1 week. Plan of care has been reviewed with the PROTOTYPE MACHINIST providing the service under Physical Therapy direction. Initiate Physical Therapy intervention for strengthening, bed mobility, transfers, gait, stairs, balance training, use of assistive device. DISCHARGE RECOMMENDATION: Short-term SNF when medically appropriate TREATMENT CODE/TIME: 29409 x 50 minutes for 3 units (09:58-10:48).
--- NOTE | 2024-09-15 10:13 | W.PM.PROGNOT ---
Date of Service Date of service: 09/15/24 Time of Service: 10:13 Assessment and Plan Assessment and plan (1) Closed pelvic fracture: Assessment and plan: -As per CT : left acetabular fracture left inferior pubic ramus fracture and left parasymphyseal pubis fracture -As per previous discussion w [facility] orthopedic surgery on admission, deferring surgical management. recommended 50% weight bearing and f/u imaging s/p ambulation with walker and PT. -PT consulted, see notes -Patient should ambulate as tolerated with a walker -Pelvic x-rays with oblique views repeated today and showing stability of pelvic fractures -Left hip hardware stability assessment - pending XR in AM -PRN in-house Ortho consultation when available -Now on PRN tramadol oral - oversedation with initial IV morphine and not feeling well w oral oxycodone -Will add oral schedule acetaminophen -Fall precautions (2) Atrial fibrillation: Status: Chronic Assessment and plan: - On home medicine regimen with bisoprolol and Xarelto (3) Hyponatremia: Status: Resolved Assessment and plan: Chronic Na 131 on admission now 127 NS at 50 cc/hr last echo in 2019 - LVEF 55% BMP in AM (4) Hypomagnesemia: Status: Acute Assessment and plan: Initially improved after replaced in ED, but MG 1.7 on 09/14- will replace and repeat in AM (5) CKD stage 3b, GFR 30-44 ml/min: Assessment and plan: At recent baseline, monitor. Normal values for following labs in the setting of multiples fractures and CKD PTH 29.0 phos 3.7 Vitamin D 94.5 (6) Contraindication to deep vein thrombosis (DVT) prophylaxis: Status: Acute Assessment and plan: Patient is fully anti-coagulated on Xeralto (7) Discharge planning issues: Status: Acute Assessment and plan: Case management following and referrals sent: No offers PT following for discharge planning to short-term SNF when medically appropriate Anticipate discharge to custodial facility- [facility] Discussed with Dr. Crane Subjective Subjective Patient reports: no new complaints, feels better, pain is less, tolerating liquids well, tolerating a regular diet, flatus, bowel movement and afebrile; denies voiding w/o difficulty, diarrhea, nausea, vomiting or shortness of breath Exam Narrative Exam Narrative: Constitutional Frail elderlyfemale patient sitting in chair, without acute distress Neuro:alert and oriented to self, person, place, time and situation. No neurological focal deficit Resp: Normal respiratory pattern, speaks in full sentences, unlabored breathing, clear lung bilaterally Cardio: regular rhythm, S1, S2 w possible right 2nd intercostal split S sound VS murmur, capillary refill<3 sec.,positive bilateral dorsalis pedis pulses GI: Abdomen is not distended, soft and non tender, bowel sounds are present : Negative Costovertebral angle tenderness, no bladder distension Back/spine/Pelvis: No back tenderness Integumentary: No skin lesions or rash Extremities: strength 5/5 to bilateral lower and upper extremities Psych: RASS 0, congruent mood and normal affect. Objective Last Vital Signs Temp 36.4 C L 09/15/24 03:47 Pulse 90 09/15/24 03:47 Resp 16 09/15/24 03:47 BP 121/59 L 09/15/24 03:47 Pulse Ox 96 09/15/24 03:47 Laboratory Results - last 24 hr 09/14/24 06:16 PTH Intact 29.0 PAWSS Have you Been Recently Intoxicated or Drunk Within the Last 30 days?: No Have you Ever Experienced Previous Episodes of Alcohol Withdrawal?: No Have you ever Experienced Withdrawal Seizures?: No Have you ever Experienced Delirium Tremens(DT)s?: No Have you ever undergone Alcohol Rehabilitation Treatment (i.e, inpt ot outpatient treatment programs)?: No Have you ever Experienced Blackouts?: No Have you ever Combined Alcohol with other Downers within the last 90 days?: No Have you ever Combined Alcohol with any other Substance of Abuse during the last 90 days?: No Positive Blood Alcohol level on Presentation? [PCS.BAL]: No Evidence of Increased Autonomic Activity (i.e. HR>120, tremor, sweating, agitation, nausea)?: No Result: 0 Time Spent with Patient Time Spent with Patient: >50 minutes Time was spent: preparing to see the patient(eg.review tests), obtaining and/or reviewing separately otained hiistory, ordering medications,tests, procedures, referring, communicating with other health healthcare marketer, indepentently interpreting results, counseling the patient and care coordination
[2024-09-15 11:00] LABS: Abs Immature Grans 0.04 10^3/uL (0.0-0.06); Absolute Basophil Count 0.03 10^3/uL (0.0-0.2); Absolute Eosinophil Count 0.41 10^3/uL (0.0-0.7); Absolute Lymphocyte Count 0.92 10^3/uL (1.2-3.4); Absolute Monocyte Count 0.78 10^3/uL (0.1-0.8); Absolute Neutrophil Count 5.21 10^3/uL (1.2-6.7); Basophils % 0.4 %; Eosinophils % 5.5 %; HCT 34.3 % (36.0-46.0); HGB 11.5 g/dL (11.2-15.7); Immature Grans % 0.5 %; Lymphocytes % 12.4 %; MCH 32.4 pg (27.0-33.0); MCHC 33.5 % (32.0-36.0); MCV 97 fL (80-95); MPV 10.4 fL (8.0-11.0); Monocytes % 10.6 %; Neutrophils % 70.6 %; Platelet Count 140 10^3/uL (130-400); RBC 3.55 10^6/uL (3.93-5.22); RDW 13.3 % (11.7-14.6); WBC 7.39 10^3/uL (4.4-10.8)
[2024-09-15 11:16] LABS: Anion Gap 4.6 mmol/L (3-11); BUN 28 mg/dL (7-18); CO2 28.4 mmol/L (21.0-32.0); CREATININE 1.4 mg/dL (0.55-1.02); Calcium 9.3 mg/dL (8.5-10.1); Chloride 94 mmol/L (98-107); Estimated GFR 36.87 (mL/min/1.73m2); Glucose 131 mg/dL (74-106); Potassium 4.5 mmol/L (3.5-5.1); Sodium 127 mmol/L (136-145)
[2024-09-15 11:39] VITALS: BP 141/81; PULSE 90; RESP 16; TEMP 36.7; O2SAT 96
[2024-09-15] MEDS: traMADol 50 MG TAB PO (14:15)
--- NOTE | 2024-09-15 14:43 | DI.RAD_ITS ---
Exam(s) XR PELVIS W OBLIQUES 3V EXAM: XR PELVIS W OBLIQUES 3V XR PELVIS W OBLIQUES 3V CLINICAL HISTORY: pelvic fracture f/u. TECHNIQUE: 2D digital imaging was performed. Three views. COMPARISON: CR,XR XR PELVIS W OBLIQUES 3V from 09/13/2024 FINDINGS: BONES: Stable alignment left pubic ramus fractures. Acetabular fractures are not well seen. Old rig ht pubic ramus fractures. No bony destructive lesion is seen. JOINTS: No dislocation present. Moderate degenerative changes of the right hip. Left hip prosthesis . SI joints and pubic symphysis are unremarkable. SOFT TISSUE: Normal. IMPRESSION: Stable fracture alignment. DATA REPOSITORY: RADIATION DOSE DELIVERED:
--- NOTE | 2024-09-15 14:47 | CHAPLAIN ---
Reta was up in a chair watching tv when I visited. She was pleasant and said she was happy to be out of bed and sitting up in the recliner. She came in three days ago with pelvic fractures after a fall. Reta said her daughter will be in to visit this evening after work.
[2024-09-15 14:51] VITALS: BP 135/85; PULSE 83; RESP 18; TEMP 36.5; O2SAT 98
--- NOTE | 2024-09-15 15:21 | PTTR_ITS ---
PT Notes Visit Reasons: Pelvic Fracture Inpatient Physical Therapy Treatment Note [facility] Date: 09/15/24 PRECAUTIONS:50% pwb left. SUBJECTIVE: Reta reports that she is ready to get back into bed. She states that her pain is really only present when she moves around a lot. OBJECTIVE: []? PAIN: pelvis VITALS: ?monitored by nsg. Therapeutic Activities (16107s2): Direct one-on-one instruction in dynamic activities to improve functional performance. ? BED MOBILITY/TRANSFERS? Sit-supine: max A of 2? Sit-stand:min A of 2? Stand-sit: min A of 1 ? Chair-bed: min A of 2 Provided skilled cues and instruction on performance and technique throughout. ? GAIT? Assistive Device: FWW ? Weight bearin% PWB left. Assist:min A of 2. ? Distance:?pivot, side step, back steps x approx 4'. ? she did perform ankle pumps and glut squeezes x10 each at no charge. ASSESSMENT:? tolerated session well. Cues for proper posture. Does well as long as She does it herself. Slow mvmt best with minimal pain. Bed mobility re quires max A of 2. PLAN: will continue to work on her strength, and functional mobility to tolerance following PT POC. TREATMENT CODE/TIME: 25 min. [id number]
--- NOTE | 2024-09-15 16:37 | CMPROGNOTE_ITS ---
Date of service: 09/15/24 Time of Service: 13:00 Care Management Progress Note Progress Note Text Progress Note Text: Reta was sitting up in the chair when CM met with her today. She is feeling a little better, but still has a lot of pain when moving. If she is still, she has no pain. CM followed up with [facility] for [facility] today, but they did not have a response for the referral sent. Reta is hesitant to have referrals sent anywhere else, but did agree to [facility], which was sent. Discharge Potential Discharge Needs: Other (SNF for short term rehab) Anticipated Barriers to Discharge: Bed availability Patient/Family Education Needs: Review discharge instructions, discuss [facility] Transportation: RCT RCT Transportation: Wheel chair van Plan: Anticipate that Reta will be transferred to SNF once a bed is available. She will transport via wheelchair van. She will f/u with the facility provider and continue per her plan of care. CM will continue to follow. SDOH(Care Management) Screening Will the Patient Participate in the Screening?: Yes Do you worry about having a steady place to live?: no In the past 12 months, have you had to go without electric, gas, oil or water in your home?: no Have you or anyone in your house had to go without enough food to eat?: no Has lack of transportation kept you from medical appointments or from doing things needed for daily living?: no Has anyone in your support network made you feel unsafe for any reason?: no Social Determinants of Health Comments(SDOH Details): Patient is on meals on wheels.
[2024-09-15] MEDS: Rivaroxaban 15 MG TABLET PO (17:30)
[2024-09-15] MEDS: Normal Saline 1,000 ML 50 ML IV (18:34)
[2024-09-15 19:11] VITALS: BP 139/80; PULSE 88; RESP 17; TEMP 36.5; O2SAT 98
[2024-09-15] MEDS: Acetaminophen 500 MG TAB 1000 MG PO (20:09)
[2024-09-15] MEDS: Docusate Sodium 100 MG CAP PO (20:09)
[2024-09-15] MEDS: Polyethylene Glycol 3350 17 GM PACKET PO (20:10)
[2024-09-15] MEDS: MAGNESIUM SULFATE 2 GM/50 ML BAG IV_INF (20:10)
[2024-09-15 23:43] VITALS: BP 106/64; PULSE 74; RESP 16; TEMP 36.6; O2SAT 96
[2024-09-16] VITALS (7 sets, daily range): BP systolic 116–150; BP diastolic 63–95; PULSE 66–98; RESP 14–16; TEMP 36–36.7; O2SAT 93–99
[2024-09-16] MEDS: Levothyroxine 88 MCG TAB PO (06:25)
[2024-09-16 07:03] LABS: Abs Immature Grans 0.01 10^3/uL (0.0-0.06); Absolute Basophil Count 0.02 10^3/uL (0.0-0.2); Absolute Eosinophil Count 0.33 10^3/uL (0.0-0.7); Absolute Neutrophil Count 3.36 10^3/uL (1.2-6.7); Basophils % 0.4 %; Eosinophils % 5.9 %; HCT 31.8 % (36.0-46.0); Immature Grans % 0.2 %; Lymphocytes % 21.4 %; MCH 32.3 pg (27.0-33.0); MCHC 34.6 % (32.0-36.0); MCV 93 fL (80-95); MPV 10.6 fL (8.0-11.0); Monocytes % 12.5 %; Neutrophils % 59.6 %; Platelet Count 134 10^3/uL (130-400); RBC 3.41 10^6/uL (3.93-5.22); RDW 13.2 % (11.7-14.6); RDW-SD 45.4 fL; WBC 5.62 10^3/uL (4.4-10.8)
[2024-09-16 07:16] LABS: Anion Gap 7.2 mmol/L (3-11); BUN 19 mg/dL (7-18); CO2 25.8 mmol/L (21.0-32.0); Calcium 9.2 mg/dL (8.5-10.1); Chloride 97 mmol/L (98-107); Estimated GFR 55.21 (mL/min/1.73m2); Glucose 101 mg/dL (74-106); Magnesium 1.8 mg/dL (1.8-2.4); Potassium 4.6 mmol/L (3.5-5.1); Sodium 130 mmol/L (136-145)
--- NOTE | 2024-09-16 08:00 | DI.RAD_ITS ---
Exam(s) XR HIP LT AP LAT ONLY EXAM: XR HIP LT AP LAT ONLY CLINICAL HISTORY: Previous left hip replacement stability. TECHNIQUE: 2D digital imaging was performed of the left hip. Two views were obtained. AP and later al hip views were obtained. CR XR PELVIS W OBLIQUES 3V from 09/15/2024 FINDINGS: BONES: The fractures involving the left superior and inferior pubic rami are unchanged. There osteop enic. The old left femoral fracture is stable. No bony destructive lesion is seen. JOINTS: The patient has a left total hip arthroplasty which appears stable. There is also again seen a sideplate and screws in the proximal left femur. SOFT TISSUE: Extensive vascular calcifications are present. IMPRESSION: 1. Stable alignment of the left superior and inferior pubic rami fractures. 2. Stable left total hip arthroplasty and left femoral fixated fracture. 3. The bones are osteopenic. DATA REPOSITORY: RADIATION DOSE DELIVERED:
[2024-09-16] MEDS: Acetaminophen 500 MG TAB 1000 MG PO ×3 (08:06→19:51)
[2024-09-16] MEDS: traMADol 50 MG TAB PO ×2 (08:07→19:50)
[2024-09-16] MEDS: Normal Saline Flush 10 ML SYR IVP ×3 (08:11→19:50)
[2024-09-16] MEDS: Budesonide/Formoterol 80/4.5 6.9 GM 60 PUFF INH IH ×2 (08:35→19:55)
[2024-09-16] MEDS: Bisoprolol 5 MG TAB PO ×2 (08:56→19:50)
[2024-09-16] MEDS: Losartan 50 MG TAB 100 MG PO (08:56)
[2024-09-16] MEDS: Docusate Sodium 100 MG CAP PO (08:56)
--- NOTE | 2024-09-16 10:06 | PGE_ITS ---
Date of Service Date of service: 09/16/24 Time of Service: 10:06 Assessment and Plan Assessment and plan (1) Closed pelvic fracture: Assessment and plan: -On CT, left acetabular fracture left inferior pubic ramus fracture and left parasymphyseal pubis fracture- Stable on repeat imaging -Continue interventions as per previous discussion w [facility] orthopedic surgery: recommended 50% weight bearing and f/u imaging s/p ambulation with walker and PT. -Continue PT consulted, see notes -continue to ambulate as tolerated with a walker -Left hip hardware stability assessment - Stable left total hip arthroplasty and left femoral fixated fracture. -Consider PRN in-house Ortho consultation when available -continue PRN tramadol oral - over-sedation with initial IV morphine and not feeling well w oral oxycodone -Continue oral scheduled acetaminophen -Maintain fall precautions (2) Atrial fibrillation: Status: Chronic Assessment and plan: -Continue home medicine regimen with bisoprolol and Xarelto (3) Hyponatremia: Status: Resolved Assessment and plan: Chronic Na 131 on admission down to 127, NS at 50 cc/hr overnight and back to chronic level at 130 stop IVF last echo in 2019 - LVEF 55% BMP on 09/18 (4) Hypomagnesemia: Status: Acute Assessment and plan: Resolved: Mg now 1.8 (5) CKD stage 3b, GFR 30-44 ml/min: Assessment and plan: At recent baseline, monitor. Normal values for following labs in the setting of multiples fractures and CKD PTH 29.0, phos 3.7, Vitamin D 94.5 Continue to monitor (6) Contraindication to deep vein thrombosis (DVT) prophylaxis: Status: Acute Assessment and plan: Fully anti-coagulated on Xeralto- no further intervention required (7) Discharge planning issues: Status: Acute Assessment and plan: Care management: referrals sent- offers pending On going PT with reommendation for short-term SNF when medically appropriate [facility] Discussed with Dr. Crane Exam Narrative Exam Narrative: Constitutional Frail elderlyfemale patient sitting in chair, without acute distress Neuro:alert and oriented X4 . No neurological focal deficit Resp: Clear lung bilaterally Cardio: regular rhythm, S1, S2, capillary refill<3 sec.,positive bilateral dorsalis pedis pulses GI: Abdomen is not distended, soft and non tender, bowel sounds are present : Negative Costovertebral angle tenderness Back/spine/Pelvis: No back tenderness when immobile, pain with ambulation Integumentary: No skin lesions or rash Extremities: push/pull strength 5/5 to bilateral lower and upper extremities Psych: RASS 0, congruent mood and normal affect. Objective Last Vital Signs Temp 36.4 C L 09/16/24 03:00 Pulse 75 09/16/24 03:00 Resp 16 09/16/24 03:00 BP 139/79 09/16/24 03:00 Pulse Ox 96 09/16/24 08:36 Laboratory Results - last 24 hr 09/15/24 09/16/24 10:35 06:33 WBC 7.39 5.62 RBC 3.55 L 3.41 L Hgb 11.5 11.0 L Hct 34.3 L 31.8 L MCV 97 H 93 D MCH 32.4 32.3 MCHC 33.5 34.6 RDW 13.3 13.2 Plt Count 140 134 MPV 10.4 10.6 Immature Gran % 0.5 0.2 Neutrophils % 70.6 59.6 Lymphocytes % 12.4 21.4 Monocytes % 10.6 12.5 Eosinophils % 5.5 5.9 Basophils % 0.4 0.4 Nucleated RBC % 0.0 0.0 Absolute Neutrophils 5.21 3.36 Absolute Lymphocytes 0.92 L 1.20 Absolute Monocytes 0.78 0.70 Absolute Eosinophils 0.41 0.33 Absolute Basophils 0.03 0.02 Sodium 127 L 130 L Potassium 4.5 4.6 Chloride 94 L 97 L Carbon Dioxide 28.4 25.8 Anion Gap 4.6 7.2 BUN 28 H 19 H Creatinine 1.4 H 1.0 Est GFR (CKD-EPI 2020) 36.87 55.21 Glucose 131 H 101 Calcium 9.3 9.2 Magnesium 1.8 PAWSS Have you Been Recently Intoxicated or Drunk Within the Last 30 days?: No Have you Ever Experienced Previous Episodes of Alcohol Withdrawal?: No Have you ever Experienced Withdrawal Seizures?: No Have you ever Experienced Delirium Tremens(DT)s?: No Have you ever undergone Alcohol Rehabilitation Treatment (i.e, inpt ot outpatient treatment programs)?: No Have you ever Experienced Blackouts?: No Have you ever Combined Alcohol with other Downers within the last 90 days?: No Have you ever Combined Alcohol with any other Substance of Abuse during the last 90 days?: No Positive Blood Alcohol level on Presentation? [PCS.BAL]: No Evidence of Increased Autonomic Activity (i.e. HR>120, tremor, sweating, agitation, nausea)?: No Result: 0 Time Spent with Patient Time Spent with Patient: >50 minutes Time was spent: preparing to see the patient(eg.review tests), obtaining and/or reviewing separately otained hiistory, ordering medications,tests, procedures, referring, communicating with other health patient care coordinator, indepentently interpreting results, counseling the patient and care coordination
--- NOTE | 2024-09-16 10:56 | DI.VRAD_ITS ---
PROCEDURE INFORMATION: Exam: XR Left Hip Exam date and time: 09/16/2024 8:25 AM Age: 84 years old Clinical indication: Other: Previous left hip replacement stability; Prior surgery; Surgery date: 3-7 days post-operative TECHNIQUE: Imaging protocol: Radiologic exam of the left hip. Views: 2 or 3 views hip with pelvis when performed. COMPARISON: CR XR PELVIS W OBLIQUES 3V 09/15/2024 2:33 PM FINDINGS: Limitations: Decreased sensitivity for detection of osseous abnormalities due to demineralization of the osseous structures. Bones/joints: An acute mildly displaced fracture of the left inferior pubic ramus is again noted. A fracture line is also again seen in the lateral aspect of the left superior pubic ramus/anterior column of the left acetabulum. A left total hip arthroplasty remains in stable satisfactory position. A lateral metal plate with cerclage wires is again seen in the proximal to mid femur. Soft tissues: Unremarkable. IMPRESSION: 1. Postoperative changes as described above, stable. 2. Stable fractures of the left inferior pubic ramus, and lateral aspect of the left superior pubic ramus/anterior column. Dictated and Authenticated by: Sherlyn Faustin MD. Ordering:GUMARO Warner MD
[2024-09-16] MEDS: traMADol 50 MG TAB 25 MG PO (11:44)
--- NOTE | 2024-09-16 12:18 | PTTR_ITS ---
PT Notes Visit Reasons: Pelvic Fracture Inpatient Physical Therapy Treatment Note [facility] Date: 09/16/24 SUBJECTIVE: Reta states that she is feelign better today in regards to pain, but is very tired as she has not slept much in 2 days. OBJECTIVE: []? VITALS: ? monitored by [facility] Therapeutic Activities ([id number]): Direct one-on-one instruction in dynamic activities to improve functional performance. ? BED MOBILITY/TRANSFERS? Supine-sit: max A of 1? Sit-stand: Mod A of 1? Stand-sit: min A of 1 ? Bed-Chair: min A of 1? Provided skilled cues and instruction on performance and technique throughout. GAIT? Assistive Device:FWW ? Weight bearin% pwb left Assist: CGA of 1 ? Distance:? approx 4'? Deviation: shuffled, pivoting ?she did perform seated LAQ x10, AP, and GS. Sit to stand x3 ASSESSMENT:?tolerated session well. Less pain with transfers today, still requires significant assistance to get OOB. PLAN: continue to progress strength and functional mobility to tolerance. TREATMENT CODE/TIME: 25 min [id number]
[2024-09-16] MEDS: Simethicone 80 MG CHEW PO ×2 (14:06→19:50)
[2024-09-16] MEDS: Rivaroxaban 15 MG TABLET PO (17:23)
[2024-09-16] MEDS: Polyethylene Glycol 3350 17 GM PACKET PO (19:50)
[2024-09-16] MEDS: Milk of Magnesia 30 ML CUP PO (23:38)
[2024-09-17 03:01] VITALS: BP 136/81; PULSE 89; RESP 16; TEMP 36.3; O2SAT 98
[2024-09-17] MEDS: traMADol 50 MG TAB PO (05:18)
[2024-09-17] MEDS: Levothyroxine 88 MCG TAB PO (05:18)
[2024-09-17 06:39] LABS: Abs Immature Grans 0.03 10^3/uL (0.0-0.06); Absolute Basophil Count 0.02 10^3/uL (0.0-0.2); Absolute Eosinophil Count 0.53 10^3/uL (0.0-0.7); Absolute Lymphocyte Count 1.09 10^3/uL (1.2-3.4); Absolute Monocyte Count 0.61 10^3/uL (0.1-0.8); Absolute Neutrophil Count 4.63 10^3/uL (1.2-6.7); Basophils % 0.3 %; Eosinophils % 7.7 %; HCT 32.5 % (36.0-46.0); Immature Grans % 0.4 %; Lymphocytes % 15.8 %; MCH 32.5 pg (27.0-33.0); MCHC 33.8 % (32.0-36.0); MCV 96 fL (80-95); MPV 10.9 fL (8.0-11.0); Monocytes % 8.8 %; Platelet Count 147 10^3/uL (130-400); RBC 3.38 10^6/uL (3.93-5.22); RDW 13.2 % (11.7-14.6); RDW-SD 46.6 fL; WBC 6.91 10^3/uL (4.4-10.8)
[2024-09-17 06:54] LABS: Anion Gap 5.3 mmol/L (3-11); BUN 21 mg/dL (7-18); CO2 28.7 mmol/L (21.0-32.0); Calcium 9.3 mg/dL (8.5-10.1); Chloride 97 mmol/L (98-107); Estimated GFR 55.21 (mL/min/1.73m2); Glucose 95 mg/dL (74-106); Potassium 5.1 mmol/L (3.5-5.1); Sodium 131 mmol/L (136-145)
[2024-09-17 07:18] VITALS: BP 150/80; PULSE 86; RESP 16; TEMP 36.3; O2SAT 99
[2024-09-17] MEDS: Budesonide/Formoterol 80/4.5 6.9 GM 60 PUFF INH IH ×2 (08:14→20:54)
[2024-09-17] MEDS: Bisoprolol 5 MG TAB PO ×2 (08:52→21:16)
[2024-09-17] MEDS: Docusate Sodium 100 MG CAP PO (08:52)
[2024-09-17] MEDS: Acetaminophen 500 MG TAB 1000 MG PO ×3 (08:52→21:16)
[2024-09-17] MEDS: Losartan 50 MG TAB 100 MG PO (08:52)
[2024-09-17] MEDS: Polyethylene Glycol 3350 17 GM PACKET PO (08:53)
[2024-09-17] MEDS: Normal Saline Flush 10 ML SYR IVP ×2 (08:53→21:17)
[2024-09-17 11:09] VITALS: BP 151/63; PULSE 64; RESP 16; TEMP 36.3; O2SAT 99
--- NOTE | 2024-09-17 11:14 | PT.INTREAT ---
PT Notes Visit Reasons: Pelvic Fracture Inpatient Physical Therapy Treatment Note [facility] Date: 09/17/24 SUBJECTIVE: Reta states that she did not sleep much last night due to large loose stool in bed which required a complete bath and bed change. OBJECTIVE: []? VITALS: ? [place] [facility] Therapeutic Activities ([id number]): Direct one-on-one instruction in dynamic activities to improve functional performance. ? BED MOBILITY/TRANSFERS? Supine-sit: mod A of 1? Sit-stand: Mod A of 1? Stand-sit: CGA A of 1 ? Bed-Chair: CGA/min A of 1? Provided skilled cues and instruction on performance and technique throughout. GAIT? Assistive Device:FWW ? Weight bearin% pwb left Assist: CGA of 1 ? Distance:?approx 40' in room.? Deviation: step to gait pattern.?she did perform seated LAQ x10, AP, and GS. Sit to stand x3 ASSESSMENT:?tolerated session very well. She reports 6-7/10 pain while moving around, but able to ambulate today. WC to follow however was not needed. PLAN: continue to progress strength and functional mobility to tolerance. TREATMENT CODE/TIME: 24 min [id number]
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
[2024-09-17 15:32] VITALS: BP 131/80; PULSE 73; RESP 16; TEMP 36.3; O2SAT 100
[2024-09-17] MEDS: Rivaroxaban 15 MG TABLET PO (16:53)
[2024-09-17 21:25] VITALS: BP 139/88; PULSE 88; RESP 16; TEMP 36.7; O2SAT 97
[2024-09-17] MEDS: Normal Saline 1,000 ML 50 ML IV (22:23)
[2024-09-18] VITALS (7 sets, daily range): BP systolic 127–151; BP diastolic 74–99; PULSE 66–83; RESP 16–18; TEMP 36.3–36.5; O2SAT 97–99
[2024-09-18] MEDS: traMADol 50 MG TAB PO ×2 (03:06→10:55)
[2024-09-18] MEDS: Levothyroxine 88 MCG TAB PO (06:22)
[2024-09-18 06:38] LABS: Abs Immature Grans 0.02 10^3/uL (0.0-0.06); Absolute Basophil Count 0.02 10^3/uL (0.0-0.2); Absolute Eosinophil Count 0.45 10^3/uL (0.0-0.7); Absolute Lymphocyte Count 1.01 10^3/uL (1.2-3.4); Absolute Monocyte Count 0.46 10^3/uL (0.1-0.8); Absolute Neutrophil Count 3.53 10^3/uL (1.2-6.7); Basophils % 0.4 %; Eosinophils % 8.2 %; HCT 31.4 % (36.0-46.0); HGB 10.6 g/dL (11.2-15.7); Immature Grans % 0.4 %; Lymphocytes % 18.4 %; MCH 32.6 pg (27.0-33.0); MCHC 33.8 % (32.0-36.0); MCV 97 fL (80-95); MPV 10.4 fL (8.0-11.0); Monocytes % 8.4 %; Neutrophils % 64.2 %; Platelet Count 146 10^3/uL (130-400); RBC 3.25 10^6/uL (3.93-5.22); RDW 13.3 % (11.7-14.6); RDW-SD 47.8 fL; WBC 5.49 10^3/uL (4.4-10.8)
[2024-09-18 06:51] LABS: Anion Gap 7.1 mmol/L (3-11); BUN 18 mg/dL (7-18); CO2 26.9 mmol/L (21.0-32.0); Calcium 8.8 mg/dL (8.5-10.1); Chloride 98 mmol/L (98-107); Estimated GFR 55.21 (mL/min/1.73m2); Glucose 88 mg/dL (74-106); Magnesium 1.4 mg/dL (1.8-2.4); Potassium 4.6 mmol/L (3.5-5.1); Sodium 132 mmol/L (136-145)
[2024-09-18] MEDS: Acetaminophen 500 MG TAB 1000 MG PO ×2 (07:41→13:27)
[2024-09-18] MEDS: Bisoprolol 5 MG TAB PO (07:41)
[2024-09-18] MEDS: Losartan 50 MG TAB 100 MG PO (07:42)
[2024-09-18] MEDS: Polyethylene Glycol 3350 17 GM PACKET PO (07:42)
[2024-09-18] MEDS: Normal Saline Flush 10 ML SYR IVP (07:43)
[2024-09-18] MEDS: Budesonide/Formoterol 80/4.5 6.9 GM 60 PUFF INH IH (08:19)
[2024-09-18] MEDS: MAGNESIUM SULFATE 2 GM/50 ML BAG IV_INF (09:36)
--- NOTE | 2024-09-18 11:22 | PTTR_ITS ---
PT Notes Visit Reasons: Pelvic Fracture Inpatient Physical Therapy Treatment Note [facility] Date: 09/18/2024 PRECAUTIONS: Repeated falls. 50% PWB through the L LE with AD. Has hearing aids. SUBJECTIVE: In pain when patient was seen around 9:25 this morning despite having taken her pain pills at around 7 AM today. Per Nurse Sweet's suggestion and per patient's pain level, patient was seen later in the morning as she could not take any pain pilll again until 11 AM. Patient added that yesterday, she walked around the same time as right now with [employer]OL [employer]TER Deborah and was able to cover a distance of 40 feet with her walker. She does not know what happened today that she s in a lot of pain with movement. Unsure of whether she would go to the SNF this afternoon. OBJECTIVE: Mental status: A and O x 4? PAIN: Minimal to moderate pain during transfer from edge of bed to bedside recliner THERA EX: Guoded patient with safe and correct performance of isometric B hip exercises to minimize staiffness, pain, and muscle guarding prior to start of bed mobility/transfers: Gluteal sets 5 sh x 5 reps for 2 sets Quadricesp sets 5 sh x 5 reps for 2 sets Adductor squeezes 5 sh x 5 reps for 2 sets ? BED MOBILITY/TRANSFERS: Moderate cueing provided for use of B hands as needed for support, movement sequence, AD management, and posture to reduce fall risk and minimize pain report? Supine-sit: minimal assist with HOB at about 45 degrees elevated ? Sit-stand: minimal assist using FWW ? Stand-sit: minimal assist using FWW ? GAIT: Assistive Device: FWW WB status: 50% WB on the L LE Distance: Covered about 5 side steps to the head of bed Cueing: Moderate cueing provided for WB through B UE onto walker to better redistribute weight of head, arms, and trunk onto walker to offload L LE ASSESSMENT: Pain limited ability of patient to do any out of bed activity this morning. Pain pill taken before breakfast did nothing to help patient move with PT around 9:25 AM today but patient was highly anxious about moving and requested to wait until she could take her pain pill at 11 AM today. Patient was able to move minimally but could do nothing more due to pain report. Patient will require continued rehab in a subacute setting to progress mobility level using the apporpriate assistive device. PLAN: 1-2x/day, 7 days/week x 1 week. Plan of care has been reviewed with the [employer]SEM[employer]ACHINE [employer]OL SETTER providing the service under Physical Therapy direction. Initiate Physical Therapy intervention for strengthening, bed mobility, transfers, gait, stairs, balance training, use of assistive device. DISCHARGE RECOMMENDATION: Short-term SNF when medically appropriate TREATMENT CODE/TIME: 11782 x 23 minutes for 2 units (11:22-11:55).
[2024-09-18] MEDS: Protein Nutritional Supplement 16 GM 1 OUNCE PACKET PO (13:28)
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
--- NOTE | 2024-09-18 13:40 | CMDISCH_ITS ---
Date of service: 09/18/24 Time of Service: 13:40 LACE Index Scoring Tool Questions: Length of Stay (in days): 4 - 6 Was the patient admitted via the E.D.?: Yes E.D. Visits: 2 Answers: Total Score: 9 Risk of Readmission: Low Risk Care Management Discharge Plan Reason for Hospitalization: Pelvic Fracture Discharge Plan: Discharge to [facility] for STR via RCT w/c van. Follow with facility/community providers and discharge plan of care as recommended. Patient/Family Education Needs: Review discharge instructions and plan to follow up in the community. Discuss ask me three. Services Needed at Discharge: Residential Facility ([facility], coordinated by CM) and Transportation (RCT w/c van, coordinated by [facility]) SDOH Health Related Social Needs: Health related social needs details Has meals on wheel s to assist with meals
--- NOTE | 2024-09-18 13:59 | DI.RAD_ITS ---
Exam(s) XR HIP PELVIS ADULT BL EXAM: XR HIP PELVIS ADULT BL CLINICAL HISTORY: Recommended by [facility] [place]. TECHNIQUE: 2D digital imaging was performed. Three views. COMPARISON: CR XR PELVIS W OBLIQUES 3V from 09/15/2024 FINDINGS: BONES: Stable alignment of left acetabular and pubic ramus fractures. Old right pubic ramus fracture s. Hardware and left hip in femur appears unchanged. No bony destructive lesion is seen. JOINTS: No dislocation present. Moderate degenerative changes again noted in the left hip. SI joints are unremarkable. SOFT TISSUE: Prominent vascular calcifications. IMPRESSION: Stable fracture alignment. DATA REPOSITORY: RADIATION DOSE DELIVERED:
== END 2024-09-18 14:52 | disposition skilled nursing facility (03) | DRG 535 ==
LOC: ER 09-13 02:10 → MS 09-13 06:34
PROVIDERS: Emergency Medicine; Family Medicine; Nurse Practitioner Acute Care; Admitting Provider Family Medicine; Emergency Provider Emergency Medicine; PCP Family Medicine; Visit Provider Family Medicine
DX: S32.512A Fracture of superior rim of left pubis, initial encounter for closed fracture (principal); S32.492A Other specified fracture of left acetabulum, initial encounter for closed fracture; E87.1 Hypo-osmolality and hyponatremia; I48.19 Other persistent atrial fibrillation; I42.9 Cardiomyopathy, unspecified; S32.592A Other specified fracture of left pubis, initial encounter for closed fracture; E78.5 Hyperlipidemia, unspecified; E03.9 Hypothyroidism, unspecified; N18.32 Chronic kidney disease, stage 3b; E83.42 Hypomagnesemia; J45.909 Unspecified asthma, uncomplicated; Z79.01 Long term (current) use of anticoagulants; I12.9 Hypertensive chronic kidney disease with stage 1 through stage 4 chronic kidney disease, or unspecified chronic kidney disease; V48.4XXA Person boarding or alighting a car injured in noncollision transport accident, initial encounter; M25.562 Pain in left knee; H90.3 Sensorineural hearing loss, bilateral; Z86.73 Personal history of transient ischemic attack (TIA), and cerebral infarction without residual deficits; M15.9 Polyosteoarthritis, unspecified; D64.9 Anemia, unspecified; Z96.642 Presence of left artificial hip joint; M85.80 Other specified disorders of bone density and structure, unspecified site
CPT/HCPCS: 00123; 36415; 73521; 73552; 73562; 80048; 80053; 82306; 85027; 86850; 86900; 86901; 94640; 96361; 96365; 96366; 96375; 96376; 97110; 97162; 97530; 99285; 70450; 72125; 72170; 72190; 72192; 73502; 73700; 83735; 83970; 84100; 85025; 85610; 85730; 94664; 94760; 99223; 99233; 99239; J2270; J3475

== ENCOUNTER 2024-10-01 06:45 | Observation (INO) | payer MEDICARE, MEDICAID, SELFPAY ==
[2024-10-01] VITALS (43 sets, daily range): BP systolic 125–170; BP diastolic 72–133; PULSE 80–114; RESP 13–34; TEMP 36.5–37.5; O2SAT 95–98
--- NOTE | 2024-10-01 07:00 | RT.EKG_ITS ---
APPROVED REPORT Exam: Resting ECG Reason for Exam: ?cva Patient Location: E HR:95 bpm ECG Measurements Heart Rate 95 AXIS PA [id number] P [id number] QRSd 81 QRS 104 QT 345 T 45 QTc 435 Conclusion Atrial fibrillation...? atrial activity Ventricular premature complex...V complex w/ short R-R interval Right axis deviation...QRS axis ( 28,592)
--- NOTE | 2024-10-01 07:00 | DI.CT_ITS ---
Exam(s) CT BRAIN NECK CTA EXAM: CT BRAIN NECK CTA CLINICAL HISTORY: asphasia. TECHNIQUE: Imaging Protocol: Axial CT angiography was performed with multi-slice acquisition and mu lti-planar and/or 3D reconstructions. CONTRAST MATERIAL: Intravenous: Omnipaque 350 contrast volume:70 mL COMPARISON: CT CT BRAIN NECK CTA from 08/14/[address] HEAD CERVICAL SPINE WO from 09/12/2024 FINDINGS: CT Head W/O and W: Ventricles and Extra axial spaces: Normal in size and morphology for the patient's age. Hemorrhage: None. Cerebral parenchyma: There is again seen an area of encephalomalacia involving the left parietal lobe . There is again seen a round hyperdense mass along the posterior aspect of the falx consistent with a meningioma. There are areas of decreased attenuation in the white matter consistent with chronic microvascular ischemic disease. There is no evidence of an acute territorial infarct or mass effect. Midline shift: None. Brainstem/Cerebellum: Normal. Calvarium: Normal. Visualized Paranasal sinuses/Mastoids: Clear. Soft Tissues: Unremarkable. Enhancement: Unremarkable. CTA Neck W: Common Carotid: Right: No dissection, occlusion or significant stenosis. Mild atherosclerotic calcification is prese nt. Left: No dissection, occlusion or significant stenosis. Mild atherosclerotic calcification is seen d istally. External Carotid: Right: No occlusion or significant stenosis. There is atherosclerotic calcifications seen proximally . There is less than 50 percent narrowing at its origin. Left: No occlusion or significant stenosis. There is atherosclerotic calcification proximally with l ess than 50 percent narrowing at its origin. Internal Carotid: Right: No dissection, occlusion or significant stenosis. Mild atherosclerotic calcification is seen proximally. Left: No dissection, occlusion or significant stenosis. Atherosclerotic calcification is seen proxim ally with less than 50 percent narrowing. Vertebral Artery: Right: No dissection, occlusion or significant stenosis. Mild atherosclerotic calcification is seen distally with less than 50 percent narrowing. Left: No dissection, occlusion or significant stenosis. Atherosclerotic calcification is seen distal ly with less than 50 percent stenosis. Lung Apices: No acute pulmonary process is seen in the lung apices. Bones: Within normal limits for the patient's age. Degenerative changes are seen at the temporomandib ular joints bilaterally. Soft Tissues: Normal. Thyroid gland: Unremarkable. CTA Brain W: Internal Carotid Arteries: There is extensive atherosclerotic calcifications seen bilaterally in the cavernous portions of the internal carotid arteries. The cavernous portion of the left internal chery tid artery does not opacify suggesting occlusion. There is however, reconstitution of the supraclino id left internal carotid artery. Anterior Cerebral Arteries: Right: No aneurysm, occlusion or significant stenosis. Left: No aneurysm, occlusion or significant stenosis. Middle Cerebral Arteries: Right: No aneurysm, occlusion or significant stenosis. Left: No aneurysm, occlusion or significant stenosis. Posterior Cerebral Arteries: Right: No aneurysm, occlusion or significant stenosis. Left: No aneurysm, occlusion or significant stenosis. Vertebral Arteries: Right: No aneurysm, occlusion or significant stenosis. Left: No aneurysm, occlusion or significant stenosis. Basilar Artery: No aneurysm, occlusion or significant stenosis. IMPRESSION: 1. 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 Distally, the le ft internal carotid artery is reconstituted at the level of the supraclinoid portion. There is elvia l blood flow seen to the left anterior middle cerebral arteries. 2. No acute intracranial process. 3. No occlusion or significant stenosis on the CT angiography of the neck. 4. Findings were discussed with Dr. Jara at 8:47 a.m. on 10/01/2024. RADIATION DOSE DELIVERED: 2,024.2mGy.cm Total DLP DATA REPOSITORY: All CT scans at this facility are submitted to the National Radiology Data Registry (NRDR) Dose Index Registry (DIR) with the [employer] (ACR). RADIATION OPTIMIZATION: All CT scans at this facility use at least one of these dose optimization te chniques: automated exposure control; mA and/or kV adjustment per patient size (includes targeted exa ms where dose is matched to clinical indication); or iterative reconstruction.
--- NOTE | 2024-10-01 07:12 | ED.GENADUL_ITS ---
Discharge Plan Disposition Patient Disposition: Admit to [facility] Condition: Stable Discharge Details Chief Complaint: CVA/TIA Clinical Impression: Acute CVA (cerebrovascular accident) Primary Care Provider: Chitra Martinez ED Provider: Eliezer Jara Home Meds and New Rx's Prescriptions: No Action ascorbic acid (vitamin C) 500 mg tablet 500 mg PO DAILY cholecalciferol (vitamin D3) 50 mcg (2,000 unit) capsule 50 mcg PO DAILY protein [Ensure High Protein] Powder 1 pwd PO BID Qty: 454 3RF omega-3 fatty acids [Super [place]-3] 1,000 mg capsule 1,000 mg PO DAILY levothyroxine 88 mcg tablet 88 mcg PO DAILY Qty: 90 1RF bisoprolol fumarate 5 mg tablet 5 mg PO BID Qty: 180 3RF multivit with min-folic acid [Women's Multivitamin Gummies] 200 MCG tablet,chewable 200 mcg PO DAILY Qty: 150 magnesium oxide 400 mg magnesium capsule 400 mg PO BID Qty: 60 12RF albuterol sulfate [Ventolin HFA] 90 mcg/actuation HFA aerosol inhaler 2 puff inhalation QID PRN (Reason: shortness of breath or wheezing) Qty: 18 2RF losartan 100 mg tablet 100 mg PO DAILY Qty: 90 3RF rivaroxaban 15 mg tablet 15 mg PO QPM Qty: 90 3RF Rx Instructions: must administer with evening meal cetirizine 10 mg tablet 10 mg PO DAILY PRN (Reason: allergy symptoms) Qty: 30 3RF fluticasone furoate-vilanterol [Breo Ellipta] 100-25 mcg/dose blister with device 1 inh inhalation DAILY Qty: 60 6RF vitamin P16-dynlk acid 1,000-400 mcg Lozenge 1,000 heidi SUBLINGUAL DAILY potassium chloride 20 mEq tablet extended release 20 meq PO DAILY Qty: 90 0RF calcium carbonate [Calcium 500] 500 mg calcium (1,250 mg) tablet,chewable 500 mg PO DAILY Qty: 90 0RF fenofibrate nanocrystallized 48 mg tablet 48 mg PO DAILY potassium chloride 20 mEq/15 mL liquid 20 meq PO DAILY famotidine 20 mg tablet 20 mg PO BID Patient Comments: 7 days starting 09/28/24 tramadol 50 mg tablet 50 mg PO Q8H PRN HPI General Mode of arrival: EMS . Date/Time Provider Initiated Documentation: 10/01/24 06:52 . Information obtained by: patient . History of Present Illness 84 year old F presents to the emergency department with the chief complaint of speech problems, described as moderate, Patient reports no radiation. and it has been constant. No relieving factors improve symptom(s), No exacerbating factors reported . Patient notes denies nausea/vomiting. Patient did receive the following treatments prior to arrival, none Related Data Home Medications ?Medication ?Instructions ?Recorded ?Confirmed multivitamin with minerals-folic 200 mcg PO DAILY ##150 06/01/16 10/01/24 acid 200 mcg chewable tablet (Women's Multivitamin Gummies) vitamin B12 1,000 mcg-folic acid 1,000 heidi sublingual DAILY 10/20/19 10/01/24 400 mcg sublingual lozenge ascorbic acid (vitamin C) 500 mg 500 mg PO DAILY 09/08/21 10/01/24 tablet omega-3 fatty acids 1,000 mg 1,000 mg PO DAILY 02/24/23 10/01/24 capsule (Super [place]-3) calcium carbonate (Calcium 500) 500 mg PO DAILY #90 tabs 02/25/24 10/01/24 potassium chloride 20 mEq 20 meq PO DAILY #90 tabs 02/25/24 10/01/24 tablet,extended release magnesium oxide 400 mg PO BID #60 caps 03/06/24 10/01/24 cholecalciferol (vitamin D3) 50 50 mcg PO DAILY 04/05/24 10/01/24 mcg (2,000 unit) capsule protein (Ensure High Protein oral 1 pwd PO BID #454 grams 04/05/24 10/01/24 powder) Ventolin HFA 90 mcg/actuation 2 puff inhalation QID PRN 04/10/24 10/01/24 aerosol inhaler (albuterol sulfate) shortness of breath or wheezing #18 grams losartan 100 mg tablet 100 mg PO DAILY #90 tabs 04/18/24 10/01/24 bisoprolol fumarate 5 mg tablet 5 mg PO BID #180 tabs 06/23/24 10/01/24 levothyroxine 88 mcg tablet 88 mcg PO DAILY #90 tabs 06/23/24 10/01/24 rivaroxaban 15 mg tablet 15 mg PO QPM #90 tabs 06/26/24 10/01/24 cetirizine 10 mg tablet 10 mg PO DAILY PRN allergy 07/07/24 10/01/24 symptoms #30 tabs fluticasone furoate 100 1 inh inhalation DAILY #60 ea 07/26/24 10/01/24 mcg-vilanterol 25 mcg/dose inhalation powder (Breo Ellipta) famotidine 20 mg tablet 20 mg PO BID 10/01/24 10/01/24 fenofibrate nanocrystallized 48 mg 48 mg PO DAILY 10/01/24 10/01/24 tablet potassium chloride 20 mEq/15 mL 20 meq PO DAILY 10/01/24 10/01/24 oral liquid tramadol 50 mg tablet 50 mg PO Q8H PRN 10/01/24 10/01/24 Previous Rx's ?Medication ?Instructions ?Recorded calcium carbonate (Calcium 500) 500 mg PO DAILY #90 tabs 02/25/24 potassium chloride 20 mEq 20 meq PO DAILY #90 tabs 02/25/24 tablet,extended release magnesium oxide 400 mg PO BID #60 caps 03/06/24 protein (Ensure High Protein oral 1 pwd PO BID #454 grams 04/05/24 powder) Ventolin HFA 90 mcg/actuation 2 puff inhalation QID PRN 04/10/24 aerosol inhaler (albuterol sulfate) shortness of breath or wheezing #18 grams losartan 100 mg tablet 100 mg PO DAILY #90 tabs 04/18/24 bisoprolol fumarate 5 mg tablet 5 mg PO BID #180 tabs 06/23/24 levothyroxine 88 mcg tablet 88 mcg PO DAILY #90 tabs 06/23/24 rivaroxaban 15 mg tablet 15 mg PO QPM #90 tabs 06/26/24 cetirizine 10 mg tablet 10 mg PO DAILY PRN allergy 07/07/24 symptoms #30 tabs fluticasone furoate 100 1 inh inhalation DAILY #60 ea 07/26/24 mcg-vilanterol 25 mcg/dose inhalation powder (Breo Ellipta) Allergies Allergy/AdvReac Type Severity Reaction Status Date / Time sulfamethoxazole AdvReac Mild NAUSEA Verified 10/01/24 06:57 trimethoprim AdvReac Mild NAUSEA Verified 10/01/24 06:57 MELISSA Inhibitors AdvReac Unknown RENAL Verified 10/01/24 06:57 INSUFFIENCIENCY benazepril AdvReac Unknown unknown Verified 10/01/24 06:57 lovastatin AdvReac Unknown LIGHTHEADED Verified 10/01/24 06:57 NESS methyldopa AdvReac Unknown unknown Verified 10/01/24 06:57 simvastatin (From Zocor) AdvReac Unknown BODY ACHES Verified 10/01/24 06:57 W/ HIGHER DOSES General Stated Complaint: CVA/TIA ERNESTO: 2 Review of Systems Unobtainable due to mental condition Exam Const General: no acute distress Orientation: alert HENMT Head: normal to inspection Ears: external ears normal General nose exam: external nose normal Mouth: moist mucous membranes Eyes General: appearance normal, both eyes and all related structures Neck Neck: normal visual inspection Resp Effort & Inspection: normal respiratory effort and able to speak in complete sentences Cardio Rate: regular rate Skin General skin exam: no rashes or lesions noted Neuro General: patient alert Cranial Nerves: CN's II-XI intact bilaterally and PERRL Extrem General: normal to inspection Psych Mental Status: mental status grossly normal Course Vital Signs Vital signs: Vital Signs Temperature 37.2 C 10/01/24 06:53 Pulse 102 H 10/01/24 06:53 Respiratory Rate 16 10/01/24 06:53 Blood Pressure 158/83 H 10/01/24 06:53 Pulse Oximetry 97 10/01/24 06:53 Temperature 37.2 C 10/01/24 06:53 Temperature Source Oral 10/01/24 06:53 Pulse 102 H 10/01/24 06:53 Respiratory Rate 16 10/01/24 06:53 Blood Pressure 158/83 H 10/01/24 06:53 Blood Pressure Position Supine 10/01/24 06:53 Pulse Oximetry 97 10/01/24 06:53 Oxygen Delivery Method Room Air 10/01/24 06:53 Oxygen Flow Rate 0 10/01/24 06:53 Pain Level 5 10/01/24 06:53 Comment hip/pelvis when moved 10/01/24 06:53 Medical Decision Making 84-year-old female with a history of A-fib on Xarelto who recently had a pelvic fracture and now is at [facility] and rehab comes in after staff found her this morning unable to communicate. She apparently was last known normal around 10:00 last night. No reported fevers at rehab. Patient is not able to speak. She is able to nod yes or no to some questions. She denies any chest pain or difficulty breathing. She is moving all extremities well with no drift. She nods yes to being able to feel me when I touch her arms and legs. Her NIH on my exam is (2 for month and age, 3 for language/aphasia, and 2 for dysarthria). Concern for cva though last known normal approximately 9 hours ago and is on Xarelto so not a lytic candidate. Will proceed with CBC CMP UA and CT/cta to evaluate for hemorrhage versus large vessel occlusion. She has paperwork from health and rehab stating she is DNR/DNI and also checked out that she would not want to be transferred to the hospital and c/o low, when I asked if she would want treatment or workup for potential stroke she denies radius. I spoke to her daughter Barb Gale on the phone who confirms DNR/DNI but would be okay with having workup and possible interventions for stroke if needed. Patient with unchanged exam, CTA shows occluded left internal carotid artery but has intact flow distally still not clear if this is new. She was evaluated by teleneurology recommends 81 mg of aspirin and standard stroke workup including MRI and echocardiogram. Will discuss with hospitalist about admission Differential Diagnosis Differential Diagnosis: CVA, TIA, electrolyte abnormality Medical Records Medical records reviewed: Yes I reviewed the patient's medical records. Imaging Data Radiologic Study: Attestation: I personally reviewed and interpreted this imaging study as follows: Imaging: CT Scan Radiologist's impression: IMPRESSION: 1. 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 Distally, the left internal carotid artery is reconstituted at the level of the supraclinoid portion. There is normal blood flow seen to the left anterior middle cerebral arteries. 2. No acute intracranial process. 3. No occlusion or significant stenosis on the CT angiography of the neck. 4. Findings were discussed with Dr. Jara at 8:47 a.m. on 10/01/2024. Lab Data Lab results reviewed: Yes I reviewed the patient's lab results. ECG Data Attestation: I personally reviewed and interpreted this ECG (s) as follows: Prior ECG tracings: available for review Interpretation: afib rate of 112 pr 149 no stemi Quality:SDOH Health Related Social Needs: Health related social needs details Has meals on wheel s to assist with meals PFSH All Active Problems (Updated 10/01/24 @ 09:31 by Eliezer Jara MD) Acute CVA (cerebrovascular accident) (Acute) Closed fracture of left inferior pubic ramus (Acute) Closed fracture of left acetabulum (Acute) Hypomagnesemia (Acute) Fall (Acute) Right knee sprain (Acute) Post-nasal drainage (Acute) Protein calorie malnutrition (Chronic) Hypocalcemia (Acute) Need for referral to dentistry for poor dentition (Acute) Asthma (Chronic) chronic, clinical dx on maintenece inhalers Chronic anticoagulation (Acute) Sensorineural hearing loss, bilateral (Acute 02/05/14) Hypothyroidism (Chronic) Hypomagnesemia (Chronic 04/18/15) Hyperlipidemia (Chronic) Essential hypertension (Chronic 06/20/13) Atrial fibrillation (Chronic) Cardioversion and Amiodarone in 2011: successfull but reverted 1 week later- amiodarone Xarelto for stroke prophylaxis Medical History (Updated 10/01/24 @ 09:31 by Eliezer Jara MD) CKD stage 3b, GFR 30-44 ml/min Hx TIA/stroke w/o resid Closed pelvic fracture Erosion of teeth History of alcoholism Umbilical hernia Vitamin D deficiency, unspecified switched to PO vitamin B12 in February 2016 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 DAVID Cardiomyopathy unclear etiology/ EF as low as 25% in 2011-back up around 50% post a.fib. rate regulated and post infection/poss. A.Fib. related vs etoh Generalized osteoarthrosis hips and knees Closed fracture of left femur (08/22/17) -2016 left periprosthetic femur fracture post fall- treated [facility] (open reduction/int.fixation) Anemia (08/19/01) Surgical History Status post open reduction with internal fixation of fracture Total replacement of hip (07/08/11) LEFT Debridement, Soft Tissue (09/29/17) IRRIGATION AND DEBRIDEMENT LEFT HIP INCISION--PLACEMENT PF LANCE DRAIN ASPIRATION LEFT TKA Bilateral salpingectomy with oophorectomy Family History Mother , AGE 92 No problems noted. Father , AGE 92 Stroke Sister , AGE 93 No problems noted. Sister , AGE 89 No problems noted. Brother , AGE 90 Lung cancer Heart disease Brother , AGE 90 Heart disease Bone cancer Son Alcohol abuse Son , AT No problems noted. Son Alcohol abuse Daughter , age 64 Influenza Daughter No problems noted. Daughter No problems noted. Maternal Grandfather Alcohol abuse Paternal Grandfather , age 100 No problems noted. Maternal Grandmother , age 82 No problems noted. Paternal Grandmother , age 100 No problems noted. Social History Smoking/Tobacco Use Status: Never Smoking risk assessment performed?: Yes Alcohol Intake: current Alcohol Intake frequency: a few times a week Alcohol type: hard liquor Drug use: Never Substance use type: does not use Adopted: No Caregiver/Support person: No Foster care: No Household members: none Housing: apartment Number of Children: 5 number of grandchildren: 19 Communication Needs: Hard of Hearing and Corrective Lenses Education Level: college Details: 1 year Do you need help understanding health information?: Rarely current occupation: Retired Pets and animals: No Sexually active: No Do you think of yourself as: straight/heterosexual Current gender identity: female What is your relationship status?: How often do you talk on the phone with friends or family?: three or more times per week How often do you get together with friends or relatives?: three or more times per week How often do you attend episcopal or spiritism services?: 1-3 times per year Do you belong to any clubs or organized social groups?: yes Panel score (0-1 are the most socially isolated patients): 2 What type of physical activity do you participate in: walking Duration: 30-45 minutes/day Frequency: daily Diane/Faith: Christianity Special diane needs: No Agree to transfusion: Yes Seatbelt use: always Helmet use: No Drive intox or ride w/intox 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
[2024-10-01 07:34] LABS: Abs Immature Grans 0.02 10^3/uL (0.0-0.06); Absolute Basophil Count 0.03 10^3/uL (0.0-0.2); Absolute Eosinophil Count 0.26 10^3/uL (0.0-0.7); Absolute Lymphocyte Count 0.81 10^3/uL (1.2-3.4); Absolute Monocyte Count 0.67 10^3/uL (0.1-0.8); Basophils % 0.4 %; Eosinophils % 3.9 %; HCT 39.3 % (36.0-46.0); Immature Grans % 0.3 %; Lymphocytes % 12.1 %; MCH 32.3 pg (27.0-33.0); MCHC 33.1 % (32.0-36.0); MCV 98 fL (80-95); MPV 9.8 fL (8.0-11.0); Neutrophils % 73.3 %; Platelet Count 318 10^3/uL (130-400); RBC 4.03 10^6/uL (3.93-5.22); RDW 13.4 % (11.7-14.6); RDW-SD 48.2 fL; WBC 6.69 10^3/uL (4.4-10.8)
[2024-10-01 07:51] LABS: INR 1.2 (0.9-1.1); PTT Activated 28.1 sec (20.6-30.2)
[2024-10-01] MEDS: Omnipaque 350 MG/ML 100 ML BTL 70 ML IJ (07:55)
[2024-10-01] MEDS: Normal Saline - Diluent 50 ML VIAL IJ (07:56)
[2024-10-01 08:02] LABS: ALT 20 U/L (14-59); AST 28 U/L (15-37); Albumin 3.2 g/dL (3.4-5.0); Alkaline Phosphatase 264 U/L (46-116); Anion Gap 5.1 mmol/L (3-11); BUN 42 mg/dL (7-18); Bilirubin, Total 1.13 mg/dL (0.2-1.0); CO2 30.9 mmol/L (21.0-32.0); CREATININE 1.7 mg/dL (0.55-1.02); Calcium 10.8 mg/dL (8.5-10.1); Chloride 98 mmol/L (98-107); Estimated GFR 29.21 (mL/min/1.73m2); Glucose 118 mg/dL (74-106); Potassium 5.8 mmol/L (3.5-5.1); Sodium 134 mmol/L (136-145); TSH (W/Ref FT4) 6.47 uIU/mL (0.36-3.74); Total Protein 8.5 g/dL (6.4-8.2)
[2024-10-01 08:23] LABS: FREE T4 1.54 ng/dL (0.76-1.46)
[2024-10-01] MEDS: Aspirin 81 MG CHEW PO (09:58)
--- NOTE | 2024-10-01 12:04 | W.PC.ACHO ---
Registration Status: Primary Language: Preferred Language: ED Information & Data Chief Complaint CVA/TIA 10/01/24 07:13 Triage Note pt transported by EMS from 10/01/24 06:53 [facility] for expressive aphasia with LKW 2200 yesterday, pt on Xaralto for a-fib, in NSR with frequent PAC/PVC, pt with hx of recent hip/pelvic fracture, DNR/DNI/comfort measures on paperwork, pt able to write on paper, pain to pelvis, on monitors with HTN to 150's. no focal deficits, PERRLA, await orders. Medical / Surgical History (Last Updated 09/13/24 @ 11:51 by Jeffery Crane) CKD stage 3b, GFR 30-44 ml/min Hx TIA/stroke w/o resid Closed pelvic fracture Erosion of teeth History of alcoholism Umbilical hernia Vitamin D deficiency, unspecified Prurigo nodularis (05/21/15) Cardiomyopathy Generalized osteoarthrosis Closed fracture of left femur (08/22/17) Anemia (08/19/01) (Last Reviewed 02/24/24 @ 15:38 by Mignon Bates MD) Status post open reduction with internal fixation of fracture Total replacement of hip (07/08/11) Debridement, Soft Tissue (09/29/17) Bilateral salpingectomy with oophorectomy Most Recent Vital Signs Temperature 37.1 C 10/01/24 11:09 Temperature Source Oral 10/01/24 06:53 Pulse 89 10/01/24 11:09 Pulse Rhythm Irregular 10/01/24 11:09 Pulse 90 10/01/24 10:46 Respiratory Rate 18 10/01/24 11:09 Respiratory Effort Normal 10/01/24 11:09 Respiratory Depth Normal 10/01/24 11:09 Respiratory Pattern Normal 10/01/24 11:09 Blood Pressure 138/87 10/01/24 11:09 Blood Pressure Mean 106 10/01/24 10:46 Blood Pressure Position Supine 10/01/24 06:53 Pulse Oximetry 97 10/01/24 11:09 Oxygen Delivery Method Room Air 10/01/24 11:09 Oxygen Flow Rate 0 10/01/24 11:09 Pain Level 0 10/01/24 11:09 Comment hip/pelvis when moved 10/01/24 06:53 Allergies sulfamethoxazole Adverse Reaction (Mild, Verified 10/01/24 06:57) NAUSEA trimethoprim Adverse Reaction (Mild, Verified 10/01/24 06:57) NAUSEA MELISSA Inhibitors Adverse Reaction (Unknown, Verified 10/01/24 06:57) RENAL INSUFFIENCIENCY benazepril Adverse Reaction (Unknown, Verified 10/01/24 06:57) unknown lovastatin Adverse Reaction (Unknown, Verified 10/01/24 06:57) LIGHTHEADEDNESS methyldopa Adverse Reaction (Unknown, Verified 10/01/24 06:57) unknown simvastatin (From Zocor) Adverse Reaction (Unknown, Verified 10/01/24 06:57) BODY ACHES W/ HIGHER DOSES Precautions Isolation Standard precaution 10/01/24 06:57 Active Medications Generic Name Dose Route Start Last Admin Trade Name Freq PRN Reason Stop Dose Admin Iohexol 70 ml 10/01/24 08:00 10/01/24 07:55 Omnipaque 350 Mg/Ml 100 Ml Btl IJ 10/31/24 23:59 70 ml DIRECTED DENISSE Administration Sodium Chloride 50 ml 10/01/24 08:00 10/01/24 07:56 Normal Saline - Diluent 50 Ml Vial IJ 50 ml .FOR DI USE DENISSE Administration IV IV Catheter Type [Right Saline Lock Antecubital] IV Catheter Gauge [Right 18 Antecubital] Diet Orders Category Date Time Status Nothing Per Oral [DIET] Nutrition 10/01/24 Lunch Active Diagnostics 10/01/24 Range/Units 07:22 WBC 6.69 (4.4-10.8) 10^3/uL RBC 4.03 (3.93-5.22) 10^6/uL Hgb 13.0 (11.2-15.7) g/dL Hct 39.3 (36.0-46.0) % MCV 98 H (80-95) fL MCH 32.3 (27.0-33.0) pg MCHC 33.1 (32.0-36.0) % RDW 13.4 (11.7-14.6) % Plt Count 318 (130-400) 10^3/uL MPV 9.8 (8.0-11.0) fL Immature Gran % 0.3 % Neutrophils % 73.3 % Lymphocytes % 12.1 % Monocytes % 10.0 % Eosinophils % 3.9 % Basophils % 0.4 % Nucleated RBC % 0.0 (0.0-0.3) % Absolute Neutrophils 4.90 (1.2-6.7) 10^3/uL Absolute Lymphocytes 0.81 L (1.2-3.4) 10^3/uL Absolute Monocytes 0.67 (0.1-0.8) 10^3/uL Absolute Eosinophils 0.26 (0.0-0.7) 10^3/uL Absolute Basophils 0.03 (0.0-0.2) 10^3/uL PT 12.0 H (9.1-11.1) sec INR 1.2 H (0.9-1.1) APTT 28.1 (20.6-30.2) sec Sodium 134 L (136-145) mmol/L Potassium 5.8 H (3.5-5.1) mmol/L Chloride 98 (98-107) mmol/L Carbon Dioxide 30.9 (21.0-32.0) mmol/L Anion Gap 5.1 (3-11) mmol/L BUN 42 H (7-18) mg/dL Creatinine 1.7 H (0.55-1.02) mg/dL Est GFR (CKD-EPI 2020) 29.21 (mL/min/1.73m2) Glucose 118 H (74-106) mg/dL Calcium 10.8 H (8.5-10.1) mg/dL Magnesium 2.0 (1.8-2.4) mg/dL Total Bilirubin 1.13 H (0.2-1.0) mg/dL AST 28 (15-37) U/L ALT 20 (14-59) U/L Alkaline Phosphatase 264 H (46-116) U/L Total Protein 8.5 H (6.4-8.2) g/dL Albumin 3.2 L (3.4-5.0) g/dL TSH 6.47 H (0.36-3.74) uIU/mL Free T4 1.54 H (0.76-1.46) ng/dL Intake and Output - 24 Hour Total 10/01/24 06:18 thru 10/01/24 11:09 Weight 57 kg Falls Risk Assessment History of Falls Previous History 10/01/24 11:09 Contributing Factors Incontinence 10/01/24 11:09 Ambulatory Aids Uses ambulatory device 10/01/24 11:09 Tubes/Lines None 10/01/24 11:09 Gait Evaluation W/any additional score 10/01/24 07:30 Cognition No cognitive impairment 10/01/24 11:09 Fall Total Score 33 10/01/24 11:09 Level of Risk Moderate Risk 10/01/24 11:09 v v v v v v v v v Sending and/or Receiving Nurses: Please use comment section below to note any information pertinent to the patient hand-off not included above. 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 pt understands concepts, unable to speak in clear sentences, but is able to follow commands. Report received from: Brittanie RODRIGUES RN at [phone]
--- NOTE | 2024-10-01 12:11 | NUR.NOTE ---
Nursing Note: pt states she currently does not want any interventions besides IV fluids for rehydration at this time and would like to stay the night before going back [facility] and rehab tomorrow. DIAN MUHAMMAD
[2024-10-01] MEDS: Normal Saline 500 ML 250 ML IV (12:39)
--- NOTE | 2024-10-01 13:22 | W.PM.HP.N ---
Date of service: 10/01/24 Time of Service: 13:22 Assessment and Plan Assessment and plan (1) Atrial fibrillation: Status: Chronic Assessment and plan: Pt is currently rate controlled and is on xarelto. (2) Hyperlipidemia: Status: Chronic Assessment and plan: cw current meds (3) Hypothyroidism: Status: Chronic Assessment and plan: TSH and ft4 elevated. This is not a normal finding but considering her age/wishes, will defer to PCP (4) Protein calorie malnutrition: Status: Chronic Assessment and plan: Recommend protein supplementation (5) Sensorineural hearing loss, bilateral: Status: Acute Assessment and plan: noted (6) Closed fracture of left acetabulum: Status: Acute Assessment and plan: noted, see recent admit-dc for plan. From dc summary dated 09/18/24 Hospital Course: Upon evaluation in the emergency department, the patient was found to have decreased range of motion in the left lower extremity secondary to pain. No visible shortening or external rotation of the limb was noted. A CT scan of the pelvis revealed the following fractures: Left acetabular fracture Left inferior pubic ramus fracture Left parasymphyseal pubis fracture The orthopedic team at [facility] was consulted and recommended non-surgical management of the fractures. They advised that the patient should be weight-bearing as tolerated with a walker. Pelvic x-rays with oblique (done)views were recommended once the patient was ambulatory to assess the stability of the pelvic fractures and her previously surgically repaired left hip. (7) Closed fracture of left inferior pubic ramus: Status: Acute Assessment and plan: as above (8) Dehydration: Status: Acute Assessment and plan: rehydration (9) Hyperkalemia: Status: Acute Assessment and plan: rechecking to make sure there is no hemolization. If still elevated, will add appropriate treatment including calcium/IVF/lokelma/abuterol/insulin. EKG did not show T-wave enlargement History of Present Illness History of Present Illness Chief Complaint: aphasia Narrative: This is a 84-year-old female who was recently in the hospital for pelvic fracture and was sent over to the rehab center. This morning it was noted that she was aphasic and she was brought over to the ED for further evaluation and treatment. Unbeknownst to us at the time the patient had signed a COLST form that outlined her wishes and the patient did not want to be transferred back to the hospital unless it was for palliative type care. While the patient was in the ED teleneurologist consultation was placed and there was a recommendation to admit her for a full stroke workup. At the time of admission the patient was already on antilipid medication as well as Xarelto. Upon my interview with the patient she could nod yes and no and upon discussion with the family as well as the patient she decided to stay in the hospital for 1 day. The main reason for this was the patient appeared significantly dehydrated and already gave her some fluid before she was back to her rehab facility. Of note there is a allergy to simvastatin and I do not know if this is a class allergy or just this particular drug. Considering the patient's wishes though I do not believe high-dose statins would be much benefit Review of Systems Unobtainable due to (aphasic) PFSH All Active Problems (Updated 10/01/24 @ 13:37 by Marshall Guerra MD) Hyperkalemia (Acute) Dehydration (Acute) Acute CVA (cerebrovascular accident) (Acute) Closed fracture of left inferior pubic ramus (Acute) Closed fracture of left acetabulum (Acute) Hypomagnesemia (Acute) Fall (Acute) Right knee sprain (Acute) Post-nasal drainage (Acute) Protein calorie malnutrition (Chronic) Hypocalcemia (Acute) Need for referral to dentistry for poor dentition (Acute) Asthma (Chronic) chronic, clinical dx on maintenece inhalers Chronic anticoagulation (Acute) Sensorineural hearing loss, bilateral (Acute 02/05/14) Hypothyroidism (Chronic) Hypomagnesemia (Chronic 04/18/15) Hyperlipidemia (Chronic) Essential hypertension (Chronic 06/20/13) Atrial fibrillation (Chronic) Cardioversion and Amiodarone in 2011: successfull but reverted 1 week later- amiodarone Xarelto for stroke prophylaxis Medical History (Updated 10/01/24 @ 13:37 by Marshall Guerra MD) CKD stage 3b, GFR 30-44 ml/min Hx TIA/stroke w/o resid Closed pelvic fracture Erosion of teeth History of alcoholism Umbilical hernia Vitamin D deficiency, unspecified switched to PO vitamin B12 in February 2016 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 DAVID Cardiomyopathy unclear etiology/ EF as low as 25% in 2011-back up around 50% post a.fib. rate regulated and post infection/poss. A.Fib. related vs etoh Generalized osteoarthrosis hips and knees Closed fracture of left femur (08/22/17) left periprosthetic femur fracture post fall- treated [facility] (open reduction/int.fixation) Anemia (08/19/01) Surgical History Status post open reduction with internal fixation of fracture Total replacement of hip (07/08/11) LEFT Debridement, Soft Tissue (09/29/17) IRRIGATION AND DEBRIDEMENT LEFT HIP INCISION--PLACEMENT PF LANCE DRAIN ASPIRATION LEFT TKA Bilateral salpingectomy with oophorectomy Family History Mother , AGE 92 No problems noted. Father , AGE 92 Stroke Sister , AGE 93 No problems noted. Sister , AGE 89 No problems noted. Brother , AGE 90 Lung cancer Heart disease Brother , AGE 90 Heart disease Bone cancer Son Alcohol abuse Son , AT No problems noted. Son Alcohol abuse Daughter , age 64 Influenza Daughter No problems noted. Daughter No problems noted. Maternal Grandfather Alcohol abuse Paternal Grandfather , age 100 No problems noted. Maternal Grandmother , age 82 No problems noted. Paternal Grandmother , age 100 No problems noted. Social History Smoking/Tobacco Use Status: Never Smoking risk assessment performed?: Yes Alcohol Intake: current Alcohol Intake frequency: a few times a week Alcohol type: hard liquor Drug use: Never Substance use type: does not use Adopted: No Caregiver/Support person: No Foster care: No Household members: none Housing: half-way Number of Children: 5 number of grandchildren: 19 Communication Needs: Hard of Hearing and Corrective Lenses Education Level: college Details: 1 year Do you need help understanding health information?: Rarely current occupation: Retired Pets and animals: No Sexually active: No Do you think of yourself as: straight/heterosexual Current gender identity: female What is your relationship status?: How often do you talk on the phone with friends or family?: three or more times per week How often do you get together with friends or relatives?: three or more times per week How often do you attend christian or quaker services?: 1-3 times per year Do you belong to any clubs or organized social groups?: yes Panel score (0-1 are the most socially isolated patients): 2 What type of physical activity do you participate in: walking Duration: 30-45 minutes/day Frequency: daily Diane/Gnosticist: Presybeterian Special diane needs: No Agree to transfusion: Yes Seatbelt use: always Helmet use: No Drive intox or ride w/intox sprinkler driver: No Firearms in home: No In current or past relationships, have you been: other Do you feel safe at home: Yes Do you feel safe in your relationship?: Yes Victim of physical abuse: No Victim of emotional abuse: Yes Victim of sexual abuse: No Would you like helpful sources: No Meds Allergies and Home Medications Allergies Allergy/AdvReac Type Severity Reaction Status Date / Time sulfamethoxazole AdvReac Mild NAUSEA Verified 10/01/24 06:57 trimethoprim AdvReac Mild NAUSEA Verified 10/01/24 06:57 MELISSA Inhibitors AdvReac Unknown RENAL Verified 10/01/24 06:57 INSUFFIENCIENCY benazepril AdvReac Unknown unknown Verified 10/01/24 06:57 lovastatin AdvReac Unknown LIGHTHEADED Verified 10/01/24 06:57 NESS methyldopa AdvReac Unknown unknown Verified 10/01/24 06:57 simvastatin (From Zocor) AdvReac Unknown BODY ACHES Verified 10/01/24 06:57 W/ HIGHER DOSES Home Medications ?Medication ?Instructions ?Recorded ?Confirmed ?Type multivitamin with minerals-folic 200 mcg PO DAILY ##150 06/01/16 10/01/24 History acid 200 mcg chewable tablet (Women's Multivitamin Gummies) vitamin B12 1,000 mcg-folic acid 1,000 heidi sublingual DAILY 10/20/19 10/01/24 History 400 mcg sublingual lozenge ascorbic acid (vitamin C) 500 mg 500 mg PO DAILY 09/08/21 10/01/24 History tablet omega-3 fatty acids 1,000 mg 1,000 mg PO DAILY 02/24/23 10/01/24 History capsule (Super Anderson-3) calcium carbonate (Calcium 500) 500 mg PO DAILY #90 tabs 02/25/24 10/01/24 Rx potassium chloride 20 mEq 20 meq PO DAILY #90 tabs 02/25/24 10/01/24 Rx tablet,extended release magnesium oxide 400 mg PO BID #60 caps 03/06/24 10/01/24 Rx cholecalciferol (vitamin D3) 50 50 mcg PO DAILY 04/05/24 10/01/24 History mcg (2,000 unit) capsule protein (Ensure High Protein oral 1 pwd PO BID #454 grams 04/05/24 10/01/24 Rx powder) Ventolin HFA 90 mcg/actuation 2 puff inhalation QID PRN 04/10/24 10/01/24 Rx aerosol inhaler (albuterol sulfate) shortness of breath or wheezing #18 grams losartan 100 mg tablet 100 mg PO DAILY #90 tabs 04/18/24 10/01/24 Rx bisoprolol fumarate 5 mg tablet 5 mg PO BID #180 tabs 06/23/24 10/01/24 Rx levothyroxine 88 mcg tablet 88 mcg PO DAILY #90 tabs 06/23/24 10/01/24 Rx rivaroxaban 15 mg tablet 15 mg PO QPM #90 tabs 06/26/24 10/01/24 Rx cetirizine 10 mg tablet 10 mg PO DAILY PRN allergy 07/07/24 10/01/24 Rx symptoms #30 tabs fluticasone furoate 100 1 inh inhalation DAILY #60 ea 07/26/24 10/01/24 Rx mcg-vilanterol 25 mcg/dose inhalation powder (Breo Ellipta) famotidine 20 mg tablet 20 mg PO BID 10/01/24 10/01/24 History fenofibrate nanocrystallized 48 mg 48 mg PO DAILY 10/01/24 10/01/24 History tablet potassium chloride 20 mEq/15 mL 20 meq PO DAILY 10/01/24 10/01/24 History oral liquid tramadol 50 mg tablet 50 mg PO Q8H PRN 10/01/24 10/01/24 History Exam Narrative Exam Narrative: Head eyes ears nose and throat: Normocephalic pneumatic mucous membranes are dry she does have bilateral senile arcus Neck: No lymphadenopathy but visible JVD Cardiovascular: irregular rate and rhythm Lungs: Clear to auscultation bilaterally with good air exchange no accessory muscle use Abdomen: Scaphoid bowel sounds are active Extremity: No cyanosis clubbing or edema neurologic: Patient does respond to verbal stimuli and does have a symmetric smile. Patient can raise her eyebrows on command. Cranial nerves II through XII are intact. General: 84-year-old female who appears older than her stated age and is responding to verbal stimuli but cannot make coherent sentences. The patient does make her wishes known through shaking her head. Results Labs 10/01/24 07:22 10/01/24 07:22 Labs: Laboratory Results - last 24 hr 10/01/24 07:22 WBC 6.69 RBC 4.03 Hgb 13.0 Hct 39.3 MCV 98 H MCH 32.3 MCHC 33.1 RDW 13.4 Plt Count 318 MPV 9.8 Immature Gran % 0.3 Neutrophils % 73.3 Lymphocytes % 12.1 Monocytes % 10.0 Eosinophils % 3.9 Basophils % 0.4 Nucleated RBC % 0.0 Absolute Neutrophils 4.90 Absolute Lymphocytes 0.81 L Absolute Monocytes 0.67 Absolute Eosinophils 0.26 Absolute Basophils 0.03 PT 12.0 H INR 1.2 H APTT 28.1 Sodium 134 L Potassium 5.8 H Chloride 98 Carbon Dioxide 30.9 Anion Gap 5.1 BUN 42 H Creatinine 1.7 H Est GFR (CKD-EPI 2020) 29.21 Glucose 118 H Calcium 10.8 H Magnesium 2.0 Total Bilirubin 1.13 H AST 28 ALT 20 Alkaline Phosphatase 264 H Total Protein 8.5 H Albumin 3.2 L TSH 6.47 H Free T4 1.54 H Last Vital Signs Temp 37.1 C 10/01/24 11:09 Pulse 89 10/01/24 11:09 Resp 18 10/01/24 11:09 BP 138/87 10/01/24 11:09 Pulse Ox 97 10/01/24 11:09 Time Spent Time spent with Patient: 40-54 minutes Time was spent: preparing to see the patient(eg.review tests), ordering medications,tests, procedures, referring, communicating with other health animal care attendant, indepentently interpreting results, counseling the patient and care coordination
[2024-10-01 14:11] LABS: Anion Gap 4.9 mmol/L (3-11); BUN 37 mg/dL (7-18); CO2 29.1 mmol/L (21.0-32.0); CREATININE 1.6 mg/dL (0.55-1.02); Chloride 100 mmol/L (98-107); Estimated GFR 31.41 (mL/min/1.73m2); Glucose 110 mg/dL (74-106); Potassium 5.5 mmol/L (3.5-5.1); Sodium 134 mmol/L (136-145)
--- NOTE | 2024-10-01 14:39 | PT.INNT ---
PT Notes Visit Reasons: Tesha Notified by MD that pt does not want any further treatment other than IV Fluids. She will be getting IV fluids then returning to SNF. PT Consult to be discontinued by . Please see H & P for specifics regarding COLST .
--- NOTE | 2024-10-01 14:40 | INITIAL_ITS ---
Date of service: 10/01/24 Time of Service: 14:40 Care Management Initial Assmt Initial Assessment Reason for Hospitalization: CVA Functional Status/Living Situation Patient Presentation: Reta was lying in bed with her Son Rashid and Daughter in law standing at her bedside. [facility] sent Reta to the ER due to concerns for a stroke, then was admitted [place] floor. Reta's ability to verbally communicate was affected, however she was still able to answer yes/no questions appropriately by nodding her head. Employment Status: Retired Instrumental Activities of Daily Living (ADLs): Requires support Medications Medication Management: No Issues/Barriers identified Advance Directives Advance Directives: Do you have an Advance Directive: Y 04/11/24 14:[address] [facility]: Y 04/11/24 14:05 Date Asked 01/01/23 10/02/24 10:25 AD Date Reviewed 10/01/24 10/01/24 07:29 COLST [address] [facility] COLST Date Scanned Code Status Resuscitation Status DNR/DNI Insurance Coverage/Financial Issues Insurance: Medicare and Medicaid Care Team Visit Care Team Role Provider Type Chitra Martinez MD Primary Care Provider [facility] STAFF PHYSICIAN Tonya Lauren, [employer] Other Providers SPEECH LANGUAGE PATHOLOGIST Vashti Wick Other Providers PEARL CUTTER Juliann Ricks, [employer] Other Providers SPEECH LANGUAGE PATHOLOGIST Sujatha Stallings Other Providers PEARL CUTTER Shaina White Other Providers SPEECH LANGUAGE PATHOLOGIST Mayuri Jackson, [employer] Other Providers SPEECH LANGUAGE PATHOLOGIST Maria Esther Iniguez Other Providers PEARL CUTTER Jessy Cantu, [employer] Other Providers SPEECH LANGUAGE PATHOLOGIST Aleksey Park Other Providers OTHER Jossie Nielson RN Other Providers PEARL CUTTER Eliezer Jara MD Emergency Provider [facility] STAFF PHYSICIAN Marshall Guerra MD Admit Provider [facility] STAFF PHYSICIAN Attending Provider Discharge Patient/Family Education Needs: Review discharge instructions, discuss Ask Me Three Transportation: EMS Plan: Dispo planning will be dependent on patients goals of care. Anticipate, Reta will return to [facility] when she is medically ready for discharge. EMS transportation will be coordinated. Social Determinants of Health Screening Social Determinants of Health last assessed: 10/13/24 Will the Patient Participate in the Screening?: Yes Do you worry about having a steady place to live?: no Problems where you live: no known problems In the past 12 months, have you had to go without electric, gas, oil or water in your home?: no Have you or anyone in your house had to go without enough food to eat?: no Has lack of transportation kept you from medical appointments or from doing things needed for daily living?: no Has anyone in your life made you feel unsafe or unsupported?: no How hard is it for you to pay for the very basics like food, housing, medical care, and heating? Would you say it is:: Somewhat hard Do you want help finding or keeping work or a job?: I do not need or want help If for any reason you need help with day-to-day activities such as bathing, preparing meals, shopping, managing finances, etc., do you get the help you need?: I get all the help I need How often do you feel lonely or isolated from those around you?: Often Do you speak a language other than Guyanese at home?: No Does the patient want assistance with any of the above?: Yes Social Determinants of Health Comments(SDWA Details): Pt currently resides at [facility] Health Related Social Needs Health related social needs: problems related to housing/economic circumstances (Z59.89) and feeling lonely/isolated (Z60.8) [facility] All Active Problems (Updated 10/03/24 @ 00:08 by RAJAN CATES) Hyperkalemia (Acute) Dehydration (Acute) Acute CVA (cerebrovascular accident) (Acute) Closed fracture of left inferior pubic ramus (Acute) Closed fracture of left acetabulum (Acute) Hypomagnesemia (Acute) Fall (Acute) Right knee sprain (Acute) Post-nasal drainage (Acute) Protein calorie malnutrition (Chronic) Hypocalcemia (Acute) Need for referral to dentistry for poor dentition (Acute) Asthma (Chronic) chronic, clinical dx on maintenece inhalers Chronic anticoagulation (Acute) Sensorineural hearing loss, bilateral (Acute 02/05/14) Hypothyroidism (Chronic) Hypomagnesemia (Chronic 04/18/15) Hyperlipidemia (Chronic) Essential hypertension (Chronic 06/20/13) Atrial fibrillation (Chronic) Cardioversion and Amiodarone in 2012: successfull but reverted 1 week later- amiodarone Xarelto for stroke prophylaxis Medical History (Updated 10/03/24 @ 00:08 by RAJAN CATES) CKD stage 3b, GFR 30-44 ml/min Hx TIA/stroke w/o resid Closed pelvic fracture Erosion of teeth History of alcoholism Umbilical hernia Vitamin D deficiency, unspecified switched to PO vitamin B12 in February 2016 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 DAVID Cardiomyopathy unclear etiology/ EF as low as 25% in 2011-back up around 50% post a.fib. rate regulated and post infection/poss. A.Fib. related vs etoh Generalized osteoarthrosis hips and knees Closed fracture of left femur (08/22/17) left periprosthetic femur fracture post fall- treated [facility] (open red uction/int.fixation) Anemia (08/19/01) Surgical History Status post open reduction with internal fixation of fracture Total replacement of hip (07/08/11) LEFT Debridement, Soft Tissue (09/29/17) IRRIGATION AND DEBRIDEMENT LEFT HIP INCISION--PLACEMENT PF LANCE DRAIN ASPIRATION LEFT TKA Bilateral salpingectomy with oophorectomy Family History Mother , AGE 92 No problems noted. Father , AGE 92 Stroke Sister , AGE 93 No problems noted. Sister , AGE 89 No problems noted. Brother , AGE 90 Lung cancer Heart disease Brother , AGE 90 Heart disease Bone cancer Son Alcohol abuse Son , AT No problems noted. Son Alcohol abuse Daughter , age 64 Influenza Daughter No problems noted. Daughter No problems noted. Maternal Grandfather Alcohol abuse Paternal Grandfather , age 100 No problems noted. Maternal Grandmother , age 82 No problems noted. Paternal Grandmother , age 100 No problems noted. Social History Smoking/Tobacco Use Status: Never Smoking risk assessment performed?: Yes Alcohol Intake: current Alcohol Intake frequency: a few times a week Alcohol type: hard liquor Drug use: Never Substance use type: does not use Adopted: No Caregiver/Support person: No Foster care: No Household members: none Housing: intermediate Number of Children: 5 number of grandchildren: 19 Communication Needs: Hard of Hearing and Corrective Lenses Education Level: college Details: 1 year Do you need help understanding health information?: Rarely current occupation: Retired Pets and animals: No Sexually active: No Do you think of yourself as: straight/heterosexual Current gender identity: female What is your relationship status?: How often do you talk on the phone with friends or family?: three or more times per week How often do you get together with friends or relatives?: three or more times per week How often do you attend spiritism or congregation services?: 1-3 times per year Do you belong to any clubs or organized social groups?: yes Panel score (0-1 are the most socially isolated patients): 2 What type of physical activity do you participate in: walking Duration: 30-45 minutes/day Frequency: daily Diane/Temple: Temple Special diane needs: No Agree to transfusion: Yes Seatbelt use: always Helmet use: No Drive intox or ride w/intox restaurant delivery driver: No Firearms in home: No In current or past relationships, have you been: other Do you feel safe at home: Yes Do you feel safe in your relationship?: Yes Victim of physical abuse: No Victim of emotional abuse: Yes Victim of sexual abuse: No Would you like helpful sources: No Readmission Within the Past 30 Days Yes or No: Yes Date of First Admission Date of 1st Admission: 09/13/24 Date of this Admission Date of Admission: 10/01/24
[2024-10-01] MEDS: Normal Saline 1,000 ML 125 ML IV (14:54)
[2024-10-01] MEDS: Rivaroxaban 15 MG TABLET PO (17:16)
--- NOTE | 2024-10-01 17:24 | NUR.NOTE ---
Nursing Note: Pt took 3 bites of pudding before being done and 100 ml of water mod thick, pt able to swallow without extensive difficulty. If minced moist diet is not tolerated recommend purred. Pt slow with eating and drinking, Pt able to hold cup independently most of the time, however required total assistance with pudding.
[2024-10-01] MEDS: Magnesium Oxide 400 MG TAB PO (20:41)
[2024-10-01] MEDS: Protein Nutritional Supplement 16 GM 1 OUNCE PACKET PO (20:42)
[2024-10-01] MEDS: Normal Saline Flush 10 ML SYR IVP (20:42)
[2024-10-02 04:29] VITALS: BP 111/60; PULSE 87; RESP 18; TEMP 36.9; O2SAT 99
[2024-10-02] MEDS: Levothyroxine 88 MCG TAB PO (05:51)
[2024-10-02] MEDS: Normal Saline Flush 10 ML SYR IVP ×2 (05:51→09:22)
[2024-10-02 07:47] VITALS: BP 124/68; PULSE 106; RESP 20; TEMP 36.8; O2SAT 97
[2024-10-02] MEDS: Protein Nutritional Supplement 16 GM 1 OUNCE PACKET PO (09:21)
[2024-10-02] MEDS: Omega-3 Fatty Acids 1000 MG CAP PO (09:21)
[2024-10-02] MEDS: Cholecalciferol (Vitamin D3) 1,000 UNIT TAB 2000 UNITS PO (09:21)
[2024-10-02] MEDS: Magnesium Oxide 400 MG TAB PO (09:22)
[2024-10-02] MEDS: Losartan 50 MG TAB 100 MG PO (09:22)
--- NOTE | 2024-10-02 11:40 | CMDISCH_ITS ---
Date of service: 10/02/24 Time of Service: 11:40 LACE Index Scoring Tool Questions: Length of Stay (in days): 1 Was the patient admitted via the E.D.?: Yes Comorbidities: Cerebrovascular Disease E.D. Visits: 2 Answers: Total Score: 7 Risk of Readmission: Low Risk Care Management Discharge Plan Reason for Hospitalization: CVA Discharge Plan: Reta is being discharged back to [facility] and is happy to return, stating they have been so good to me. Pt is currently bed bound and requires EMS transport. Reta will follow up with facility/community providers, palliative care and discharge plan of care as recommended. CM notified Barb and Rashid at pts request. Patient/Family Education Needs: Review discharge instructions and plan to follow up in the community. Discuss ask me three. Services Needed at Discharge: [facility] Facility ([facility]) and Transportation (EMS, coordinated by CM) SDOH Health Related Social Needs: Health related social needs problems related to housin g/economic circumstances (Z59.89), feeling lonely/isolated (Z60.8) Health related social needs details Has meals on wheel s to assist with meals
[2024-10-02 11:46] VITALS: BP 103/78; PULSE 105; RESP 20; TEMP 37; O2SAT 98
[2024-10-02 12:26] LABS: Anion Gap 6.9 mmol/L (3-11); BUN 33 mg/dL (7-18); CO2 28.1 mmol/L (21.0-32.0); CREATININE 1.4 mg/dL (0.55-1.02); Calcium 9.6 mg/dL (8.5-10.1); Chloride 102 mmol/L (98-107); Estimated GFR 36.87 (mL/min/1.73m2); Glucose 122 mg/dL (74-106); Potassium 4.6 mmol/L (3.5-5.1); Sodium 137 mmol/L (136-145)
--- NOTE | 2024-10-02 13:25 | W.PM.DS.N ---
Date of service: 10/02/24 Time of Service: DS: Diagnosis Discharge Diagnosis (1) Atrial fibrillation: Status: Chronic (2) Hyperlipidemia: Status: Chronic (3) Hypothyroidism: Status: Chronic (4) Protein calorie malnutrition: Status: Chronic (5) Sensorineural hearing loss, bilateral: Status: Acute (6) Closed fracture of left acetabulum: Status: Acute (7) Closed fracture of left inferior pubic ramus: Status: Acute (8) Dehydration: Status: Acute (9) Hyperkalemia: Status: Acute Discharge Plan Disposition Patient Disposition: Intermediate Facility(SNF) Condition: Stable Condition: Stable Discharge Details Reason For Visit: CVA Admit Date/Time: 10/01/24 09:30 Admit Provider: Marshall Guerra Attending Provider: Marshall Guerra Primary Care Provider: Chitra Martinez Hospital Course Hospital Course: This is a 84-year-old female who was recently in the hospital after sustaining a pelvic fracture and was at her rehab facility when there was noted that she was aphasic. Patient was transferred here for further evaluation and treatment including a workup for a CVA. Unbeknownst to us at that time her wishes were not to come back to the hospital unless it was for comfort care only. Considering the patient's wishes I recommended transfer back to the rehab facility to which she readily agreed. Although the patient was aphasic she was able to communicate through writing as well as nodding her head yes or no. At the time of admission she did look a bit dehydrated so I gave her normal saline bolus and will otherwise not pursue further care. Home Meds and New Rx's Prescriptions: Continued ascorbic acid (vitamin C) 500 mg tablet 500 mg PO DAILY cholecalciferol (vitamin D3) 50 mcg (2,000 unit) capsule 50 mcg PO DAILY protein [Ensure High Protein] Powder 1 pwd PO BID Qty: 454 3RF omega-3 fatty acids [Super [place]-3] 1,000 mg capsule 1,000 mg PO DAILY levothyroxine 88 mcg tablet 88 mcg PO DAILY Qty: 90 1RF bisoprolol fumarate 5 mg tablet 5 mg PO BID Qty: 180 3RF multivit with min-folic acid [Women's Multivitamin Gummies] 200 MCG tablet,chewable 200 mcg PO DAILY Qty: 150 magnesium oxide 400 mg magnesium capsule 400 mg PO BID Qty: 60 12RF albuterol sulfate [Ventolin HFA] 90 mcg/actuation HFA aerosol inhaler 2 puff inhalation QID PRN (Reason: shortness of breath or wheezing) Qty: 18 2RF losartan 100 mg tablet 100 mg PO DAILY Qty: 90 3RF rivaroxaban 15 mg tablet 15 mg PO QPM Qty: 90 3RF Rx Instructions: must administer with evening meal cetirizine 10 mg tablet 10 mg PO DAILY PRN (Reason: allergy symptoms) Qty: 30 3RF fluticasone furoate-vilanterol [Breo Ellipta] 100-25 mcg/dose blister with device 1 inh inhalation DAILY Qty: 60 6RF vitamin T73-ustop acid 1,000-400 mcg Lozenge 1,000 heidi SUBLINGUAL DAILY calcium carbonate [Calcium 500] 500 mg calcium (1,250 mg) tablet,chewable 500 mg PO DAILY Qty: 90 0RF fenofibrate nanocrystallized 48 mg tablet 48 mg PO DAILY famotidine 20 mg tablet 20 mg PO BID Patient Comments: 7 days starting 09/28/24 tramadol 50 mg tablet 50 mg PO Q8H PRN potassium chloride 10 mEq tablet extended release 20 meq PO DAILY No Action potassium chloride 20 mEq/15 mL liquid 20 meq PO DAILY Discharge Instructions Activity:: Activity as Tolerated Equipment/Supplies:: No Equipment Needed Diet:: As Tolerated Discharge Orders Discharge Orders: Discharge Order (Routine); Ordered 10/02/24 Ordered By: Marshall Guerra DS: Summary Time Spent with Patient providing and/or coordinating discharge services: Greater than 30 minutes Status at Discharge Functional status at discharge: wheelchair bound Overall status at discharge: patient is progressing back to baseline Mental Status: mental status grossly normal Speech and Movement: delayed speech Mood: congruent mood Affect: normal affect Quality:SDOH Health Related Social Needs: Health related social needs problems related to housing/economic circumstances (Z59.89), feeling lonely/isolated (Z60.8) Health related social needs details Has meals on wheels to assist with meals Exam Narrative Exam Narrative: Head eyes ears nose and throat: Normocephalic pneumatic mucous membranes are dry she does have bilateral senile arcus Neck: No lymphadenopathy but visible JVD Cardiovascular: irregular rate and rhythm Lungs: Clear to auscultation bilaterally with good air exchange no accessory muscle use Abdomen: Scaphoid bowel sounds are active Extremity: No cyanosis clubbing or edema neurologic: Patient does respond to verbal stimuli and does have a symmetric smile. Patient can raise her eyebrows on command. Cranial nerves II through XII are intact. General: 84-year-old female who appears older than her stated age and is responding to verbal stimuli but cannot make coherent sentences. The patient does make her wishes known through shaking her head. Psych Mental Status: mental status grossly normal Speech and Movement: delayed speech Mood: congruent mood Affect: normal affect DS: Data Vitals/I&O Vitals and I&O: Vital Signs Temperature 37.0 C 10/02/24 11:46 Temperature Source Temporal Artery Scan 10/02/24 11:46 Pulse 105 H 10/02/24 11:46 Pulse Rhythm Irregular 10/01/24 11:09 Pulse 90 10/01/24 10:46 Respiratory Rate 20 10/02/24 11:46 Respiratory Effort Normal 10/01/24 11:09 Respiratory Depth Normal 10/01/24 11:09 Respiratory Pattern Normal 10/01/24 11:09 Blood Pressure 103/78 10/02/24 11:46 Blood Pressure Mean 106 10/01/24 10:46 Blood Pressure Position Supine 10/01/24 06:53 Pulse Oximetry 98 10/02/24 11:46 Oxygen Delivery Method Room Air 10/02/24 11:46 Oxygen Flow Rate 0 10/02/24 11:46 Pain Level 0 10/02/24 11:46 Comment hip/pelvis when moved 10/01/24 06:53 Intake & Output 10/01/24 10/02/24 10/02/24 23:59 11:59 23:59 Intake Total 1600 / 1600 480 / 480 Balance 1600 / 1600 480 / 480 Intake: IV 1500 / 1500 Oral 100 / 100 480 / 480 Other: Urine Color Yellow Urine Odor Normal Comment pT dry at this time patient is clean and dry at this time. Data Completed and Pending Labs on day of discharge: Labs from last 24 hours 10/02/24 10/01/24 12:00 13:43 Sodium 137 134 L Potassium 4.6 5.5 H Chloride 102 100 Carbon Dioxide 28.1 29.1 Anion Gap 6.9 4.9 BUN 33 H 37 H Creatinine 1.4 H 1.6 H Est GFR (CKD-EPI 2020) 36.87 31.41 Glucose 122 H 110 H Calcium 9.6 10.0 PFSH All Active Problems (Updated 10/01/24 @ 13:37 by Marshall Guerra MD) Hyperkalemia (Acute) Dehydration (Acute) Acute CVA (cerebrovascular accident) (Acute) Closed fracture of left inferior pubic ramus (Acute) Closed fracture of left acetabulum (Acute) Hypomagnesemia (Acute) Fall (Acute) Right knee sprain (Acute) Post-nasal drainage (Acute) Protein calorie malnutrition (Chronic) Hypocalcemia (Acute) Need for referral to dentistry for poor dentition (Acute) Asthma (Chronic) chronic, clinical dx on maintenece inhalers Chronic anticoagulation (Acute) Sensorineural hearing loss, bilateral (Acute 02/05/14) Hypothyroidism (Chronic) Hypomagnesemia (Chronic 04/18/15) Hyperlipidemia (Chronic) Essential hypertension (Chronic 06/20/13) Atrial fibrillation (Chronic) Cardioversion and Amiodarone in 2011: successfull but reverted 1 week later- amiodarone Xarelto for stroke prophylaxis Medical History (Updated 10/01/24 @ 13:37 by Marshall Guerra MD) CKD stage 3b, GFR 30-44 ml/min Hx TIA/stroke w/o resid Closed pelvic fracture Erosion of teeth History of alcoholism Umbilical hernia Vitamin D deficiency, unspecified switched to PO vitamin B12 in February 2016 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 DAVID Cardiomyopathy unclear etiology/ EF as low as 25% in 2011-back up around 50% post a.fib. rate regulated and post infection/poss. A.Fib. related vs etoh Generalized osteoarthrosis hips and knees Closed fracture of left femur (08/22/17) -2016 left periprosthetic femur fracture post fall- treated [facility] (open reduction/int.fixation) Anemia (08/19/01) Surgical History Status post open reduction with internal fixation of fracture Total replacement of hip (07/08/11) LEFT Debridement, Soft Tissue (09/29/17) IRRIGATION AND DEBRIDEMENT LEFT HIP INCISION--PLACEMENT PF LANCE DRAIN ASPIRATION LEFT TKA Bilateral salpingectomy with oophorectomy Family History Mother , AGE 92 No problems noted. Father , AGE 92 Stroke Sister , AGE 93 No problems noted. Sister , AGE 89 No problems noted. Brother , AGE 90 Lung cancer Heart disease Brother , AGE 90 Heart disease Bone cancer Son Alcohol abuse Son , AT No problems noted. Son Alcohol abuse Daughter , age 64 Influenza Daughter No problems noted. Daughter No problems noted. Maternal Grandfather Alcohol abuse Paternal Grandfather , age 100 No problems noted. Maternal Grandmother , age 82 No problems noted. Paternal Grandmother , age 100 No problems noted. Social History Smoking/Tobacco Use Status: Never Smoking risk assessment performed?: Yes Alcohol Intake: current Alcohol Intake frequency: a few times a week Alcohol type: hard liquor Drug use: Never Substance use type: does not use Adopted: No Caregiver/Support person: No Foster care: No Household members: none Housing: retirement Number of Children: 5 number of grandchildren: 19 Communication Needs: Hard of Hearing and Corrective Lenses Education Level: college Details: 1 year Do you need help understanding health information?: Rarely current occupation: Retired Pets and animals: No Sexually active: No Do you think of yourself as: straight/heterosexual Current gender identity: female What is your relationship status?: How often do you talk on the phone with friends or family?: three or more times per week How often do you get together with friends or relatives?: three or more times per week How often do you attend buddhist or mormon services?: 1-3 times per year Do you belong to any clubs or organized social groups?: yes Panel score (0-1 are the most socially isolated patients): 2 What type of physical activity do you participate in: walking Duration: 30-45 minutes/day Frequency: daily Diane/Taoist: Amish Special diane needs: No Agree to transfusion: Yes Seatbelt use: always Helmet use: No Drive intox or ride w/intox trailer driver: No Firearms in home: No In current or past relationships, have you been: other Do you feel safe at home: Yes Do you feel safe in your relationship?: Yes Victim of physical abuse: No Victim of emotional abuse: Yes Victim of sexual abuse: No Would you like helpful sources: No Time Spent with Patient Time Spent with Patient: 45-69 minutes Time was spent: preparing to see the patient(eg.review tests), obtaining and/or reviewing separately otained hiistory, ordering medications,tests, procedures, referring, communicating with other health health care legal assistant, indepentently interpreting results, counseling the patient and care coordination
--- NOTE | 2024-10-02 14:07 | W.PC.ACHO ---
Registration Status: Primary Language: Preferred Language: ED Information & Data Chief Complaint CVA/TIA 10/01/24 07:13 Triage Note pt transported by EMS from 10/01/24 06:53 [facility] for expressive aphasia with [facility]KW 2200 yesterday, pt on [place] for a-fib, in NSR with frequent PAC/PVC, pt with hx of recent hip/pelvic fracture, DNR/DNI/comfort measures on paperwork, pt able to write on paper, pain to pelvis, on monitors with HTN to 150's. no focal deficits, PERRLA, await orders. Medical / Surgical History (Last Updated 09/13/24 @ 11:51 by Jeffery Crane) CKD stage 3b, GFR 30-44 ml/min Hx TIA/stroke w/o resid Closed pelvic fracture Erosion of teeth History of alcoholism Umbilical hernia Vitamin D deficiency, unspecified Prurigo nodularis (05/21/15) Cardiomyopathy Generalized osteoarthrosis Closed fracture of left femur (08/22/17) Anemia (08/19/01) (Last Reviewed 02/24/24 @ 15:38 by Mignon Bates MD) Status post open reduction with internal fixation of fracture Total replacement of hip (07/08/11) Debridement, Soft Tissue (09/29/17) Bilateral salpingectomy with oophorectomy Most Recent Vital Signs Temperature 37.0 C 10/02/24 11:46 Temperature Source Temporal Artery Scan 10/02/24 11:46 Pulse 105 H 10/02/24 11:46 Pulse Rhythm Irregular 10/01/24 11:09 Pulse 90 10/01/24 10:46 Respiratory Rate 20 10/02/24 11:46 Respiratory Effort Normal 10/01/24 11:09 Respiratory Depth Normal 10/01/24 11:09 Respiratory Pattern Normal 10/01/24 11:09 Blood Pressure 103/78 10/02/24 11:46 Blood Pressure Mean 106 10/01/24 10:46 Blood Pressure Position Supine 10/01/24 06:53 Pulse Oximetry 98 10/02/24 11:46 Oxygen Delivery Method Room Air 10/02/24 11:46 Oxygen Flow Rate 0 10/02/24 11:46 Pain Level 0 10/02/24 11:46 Comment hip/pelvis when moved 10/01/24 06:53 Allergies sulfamethoxazole Adverse Reaction (Mild, Verified 10/01/24 06:57) NAUSEA trimethoprim Adverse Reaction (Mild, Verified 10/01/24 06:57) NAUSEA MELISSA Inhibitors Adverse Reaction (Unknown, Verified 10/01/24 06:57) RENAL INSUFFIENCIENCY benazepril Adverse Reaction (Unknown, Verified 10/01/24 06:57) unknown lovastatin Adverse Reaction (Unknown, Verified 10/01/24 06:57) LIGHTHEADEDNESS methyldopa Adverse Reaction (Unknown, Verified 10/01/24 06:57) unknown simvastatin (From Zocor) Adverse Reaction (Unknown, Verified 10/01/24 06:57) BODY ACHES W/ HIGHER DOSES Precautions Isolation Standard precaution 10/01/24 06:57 Active Medications Generic Name Dose Route Start Last Admin Trade Name Sherifq PRN Reason Stop Dose Admin Cholecalciferol 2,000 units 10/02/24 08:30 10/02/24 09:21 Cholecalciferol (Vitamin D3) 1,000 Unit Tab PO 2,000 units DAILY DENISSE Administration Fish Oil 1,000 mg 10/02/24 08:30 10/02/24 09:21 [place]-3 Fatty Acids 1000 Mg Cap PO 1,000 mg DAILY DENISSE Administration Sodium Chloride 1,000 mls @ 125 mls/hr 10/01/24 09:45 10/01/24 23:36 Saline 1000ml Bag IV Infused INFUSION DENISSE Infusion Levothyroxine Sodium 88 mcg 10/02/24 06:00 10/02/24 05:51 Levothyroxine 88 Mcg Tab PO 88 mcg DAILY@0600 DENISSE Administration Losartan Potassium 100 mg 10/02/24 08:30 10/02/24 09:22 Losartan 50 Mg Tab PO 100 mg DAILY DENISSE Administration Magnesium Oxide 400 mg 10/01/24 20:00 10/02/24 09:22 Magnesium Oxide 400 Mg Tab PO 400 mg BID DENISSE Administration Multi-Ingredient Supplement 1 ounce 10/01/24 20:00 10/02/24 09:21 Protein Nutritional Supplement 16 Gm 1 Ounce Packet PO 1 ounce BID DENISSE Administration Pt's Own Fluticasone 1 each 10/02/24 08:30 10/02/24 08:21 -Vilanterol [Breo IH 1 each Ellipta] 100-25 Mcg DAILY DENISSE Administration Inhaler Rivaroxaban 15 mg 10/01/24 17:00 10/01/24 17:16 Rivaroxaban 15 Mg Tablet PO 15 mg DAILY@1700 DENISSE Administration Sodium Chloride 0 ml 10/01/24 07:03 10/02/24 05:51 Normal Saline Flush 10 Ml Syr IVP 10 ml PRN PRN Administration Sodium Chloride 0 ml 10/01/24 08:30 10/02/24 09:22 Normal Saline Flush 10 Ml Syr IVP 10 ml BID DENISSE Administration IV IV Catheter Type [Right Saline Lock Antecubital] IV Catheter Gauge [Right 18 Antecubital] Diagnostics 10/02/24 10/01/24 Range/Units 12:00 13:43 Sodium 137 134 L (136-145) mmol/L Potassium 4.6 5.5 H (3.5-5.1) mmol/L Chloride 102 100 (98-107) mmol/L Carbon Dioxide 28.1 29.1 (21.0-32.0) mmol/L Anion Gap 6.9 4.9 (3-11) mmol/L BUN 33 H 37 H (7-18) mg/dL Creatinine 1.4 H 1.6 H (0.55-1.02) mg/dL Est GFR (CKD-EPI 2020) 36.87 31.41 (mL/min/1.73m2) Glucose 122 H 110 H (74-106) mg/dL Calcium 9.6 10.0 (8.5-10.1) mg/dL Intake and Output - 24 Hour Total 10/01/24 06:18 thru 10/02/24 11:17 Intake Total 2079 Balance 2079 Weight 57 kg Intake: IV 1500 Oral 580 Other: Urine Color Yellow Urine Odor Normal Comment patient is clean and dry at this time. Falls Risk Assessment History of Falls Previous History 10/01/24 11:09 Contributing Factors Incontinence 10/01/24 11:09 Ambulatory Aids Uses ambulatory device 10/01/24 11:09 Tubes/Lines None 10/01/24 11:09 Gait Evaluation W/any additional score 10/01/24 07:30 Cognition No cognitive impairment 10/01/24 11:09 Fall Total Score 33 10/01/24 11:09 Level of Risk Moderate Risk 10/01/24 11:09 Problems (Last Updated 09/13/24 @ 11:51 by Jeffery Crane) Hyperkalemia (Acute) Dehydration (Acute) Closed fracture of left inferior pubic ramus (Acute) Closed fracture of left acetabulum (Acute) Protein calorie malnutrition (Chronic) Sensorineural hearing loss, bilateral (Acute 02/05/14) Hypothyroidism (Chronic) Hyperlipidemia (Chronic) Atrial fibrillation (Chronic) Notes 10/01/24 17:24 Nursing Notes by Daniel Dias Nursing Note: Pt took 3 bites of pudding before being done and 100 ml of water mod thick, pt able to swallow without extensive difficulty. If minced moist diet is not tolerated recommend purred. Pt slow with eating and drinking, Pt able to hold cup independently most of the time, however required total assistance with pudding. Initialized on 10/01/24 17:24 - END OF NOTE 10/01/24 12:11 Nursing Notes by Daniel Dias Nursing Note: pt states she currently does not want any interventions besides IV fluids for rehydration at this time and would like to stay the night before going back to [facility] tomorrow. AP RN Initialized on 10/01/24 12:11 - END OF NOTE v v v v v v v v v Sending and/or Receiving Nurses: Please use comment section below to note any information pertinent to the patient hand-off not included above. Information / Comments: Report received from: report given to debbie at [facility] at 1407. pt off unit in stretcher with ambulance personnel
== END 2024-10-02 14:03 | disposition skilled nursing facility (03) ==
LOC: ER 09:31 → MS 11:02
PROVIDERS: Admitting Provider Hospitalist; Emergency Provider Emergency Medicine; PCP Family Medicine; Visit Provider Hospitalist
DX: R47.01 Aphasia (principal); E86.0 Dehydration; I48.19 Other persistent atrial fibrillation; E03.9 Hypothyroidism, unspecified; E78.5 Hyperlipidemia, unspecified; Z68.25 Body mass index [BMI] 25.0-25.9, adult; H90.3 Sensorineural hearing loss, bilateral; E87.5 Hyperkalemia; I65.23 Occlusion and stenosis of bilateral carotid arteries; I25.10 Atherosclerotic heart disease of native coronary artery without angina pectoris; Z79.01 Long term (current) use of anticoagulants; S32.402D Unspecified fracture of left acetabulum, subsequent encounter for fracture with routine healing; S32.592D Other specified fracture of left pubis, subsequent encounter for fracture with routine healing; D32.0 Benign neoplasm of cerebral meninges; Z79.899 Other long term (current) drug therapy; Z66 Do not resuscitate; J45.909 Unspecified asthma, uncomplicated; E83.42 Hypomagnesemia; Z86.73 Personal history of transient ischemic attack (TIA), and cerebral infarction without residual deficits; N18.32 Chronic kidney disease, stage 3b; I12.9 Hypertensive chronic kidney disease with stage 1 through stage 4 chronic kidney disease, or unspecified chronic kidney disease; I42.9 Cardiomyopathy, unspecified; D64.9 Anemia, unspecified; M15.9 Polyosteoarthritis, unspecified; E46 Unspecified protein-calorie malnutrition
CPT/HCPCS: 00123; 36415; 70496; 70498; 80048; 80053; 93005; 94640; 96360; 96361; 99285; 83735; 84439; 84443; 85025; 85610; 85730; 93010; 94664; 99222; 99239; G0378; J3490

== ENCOUNTER 2024-10-04 14:59 | Outpatient (REF) | payer MEDICARE, MEDICAID, SELFPAY ==
[2024-10-04 15:53] LABS: ALT 15 U/L (14-59); AST 20 U/L (15-37); Albumin 2.8 g/dL (3.4-5.0); Alkaline Phosphatase 196 U/L (46-116); Anion Gap 7.3 mmol/L (3-11); BUN 44 mg/dL (7-18); Bilirubin, Total 0.69 mg/dL (0.2-1.0); CO2 26.7 mmol/L (21.0-32.0); Calcium 10.1 mg/dL (8.5-10.1); Chloride 103 mmol/L (98-107); Estimated GFR 24.03 (mL/min/1.73m2); Glucose 116 mg/dL (74-106); Magnesium 2.3 mg/dL (1.8-2.4); Potassium 5.7 mmol/L (3.5-5.1); Sodium 137 mmol/L (136-145); TSH 6.58 uIU/mL (0.36-3.74)
== END 2024-10-04 15:00 | disposition home or self-care (01) ==
LOC: LBN 14:59
PROVIDERS: PCP Family Medicine; Visit Provider Family Medicine Geriatric Medicine
DX: E87.1 Hypo-osmolality and hyponatremia (principal); E03.9 Hypothyroidism, unspecified
CPT/HCPCS: 80053; 83735; 84443

== ENCOUNTER 2024-11-10 18:24 | Outpatient (REF) | payer MEDICARE, MEDICAID, SELFPAY ==
[2024-11-10 12:38] LABS: Bilirubin Negative (Negative); Blood Small (Negative); Clarity Cloudy (Clear); Glucose Negative (Negative); Ketones Negative (Negative); Leukocyte Esterase Large (Negative); Nitrite Positive (Negative); Urobilinogen 0.2 mg/dL (Up to 0.2); pH 8.5 (5-8)
[2024-11-10 12:59] LABS: Bacteria Many HPF (Negative); Epithelial Cells Negative HPF (Negative); WBC 20-50 HPF (0-5)
[2024-11-10 13:00] LABS: C & S Indicated? Yes; Casts Negative LPF (Negative); Crystals Many Triple Phos HPF (Negative); Mucus Negative (Negative)
== END 2024-11-10 18:25 | disposition home or self-care (01) ==
LOC: LBN 18:24
PROVIDERS: PCP Family Medicine; Visit Provider Family Medicine
DX: R30.0 Dysuria (principal)
CPT/HCPCS: 87077; 81003; 81015; 87086; 87186

== ENCOUNTER 2024-11-15 17:17 | Outpatient (REF) | payer MEDICARE, MEDICAID, SELFPAY ==
[2024-11-15 17:18] LABS: Anion Gap 4.2 mmol/L (3-11); BUN 43 mg/dL (7-18); CO2 29.8 mmol/L (21.0-32.0); CREATININE 1.7 mg/dL (0.55-1.02); Calcium 10.1 mg/dL (8.5-10.1); Chloride 102 mmol/L (98-107); Estimated GFR 29.21 (mL/min/1.73m2); Glucose 103 mg/dL (74-106); Potassium 5.4 mmol/L (3.5-5.1); Sodium 136 mmol/L (136-145)
== END 2024-11-15 17:18 | disposition home or self-care (01) ==
LOC: LBN 17:17
PROVIDERS: PCP Family Medicine; Visit Provider Family Medicine
DX: I10 Essential (primary) hypertension (principal); E87.5 Hyperkalemia; N18.32 Chronic kidney disease, stage 3b; D63.1 Anemia in chronic kidney disease; I48.20 Chronic atrial fibrillation, unspecified
CPT/HCPCS: 80048

== ENCOUNTER 2024-11-27 16:49 | Outpatient (REF) | payer MEDICARE, MEDICAID, SELFPAY ==
[2024-11-27 13:25] LABS: Anion Gap 5.7 mmol/L (3-11); BUN 34 mg/dL (7-18); CO2 31.3 mmol/L (21.0-32.0); CREATININE 1.4 mg/dL (0.55-1.02); Calcium 9.7 mg/dL (8.5-10.1); Chloride 101 mmol/L (98-107); Estimated GFR 36.87 (mL/min/1.73m2); Glucose 84 mg/dL (74-106); Potassium 4.5 mmol/L (3.5-5.1); Sodium 138 mmol/L (136-145)
== END 2024-11-27 16:50 | disposition home or self-care (01) ==
LOC: LBN 16:49
PROVIDERS: PCP Family Medicine; Visit Provider Family Medicine
DX: N18.32 Chronic kidney disease, stage 3b (principal)
CPT/HCPCS: 80048

== ENCOUNTER 2024-12-01 16:09 | Outpatient (REF) | payer MEDICARE, MEDICAID, SELFPAY ==
[2024-12-01 16:28] LABS: Bilirubin Negative (Negative); Blood Negative (Negative); Clarity Sl Cloudy (Clear); Glucose Negative (Negative); Ketones Negative (Negative); Leukocyte Esterase Large (Negative); Nitrite Positive (Negative); Specific Gravity 1.015 (1.005-1.025); Urobilinogen 0.2 mg/dL (Up to 0.2); pH 8.5 (5-8)
[2024-12-01 17:08] LABS: Bacteria Many HPF (Negative); C & S Indicated? No; Casts Negative LPF (Negative); Crystals Negative HPF (Negative); Epithelial Cells Rare HPF (Negative); Mucus Negative (Negative); RBC 0-2 HPF (0-2)
== END 2024-12-01 16:10 | disposition home or self-care (01) ==
LOC: LBN 16:09
PROVIDERS: PCP Family Medicine; Visit Provider Family Medicine
DX: R30.0 Dysuria (principal); Z23 Encounter for immunization; E44.1 Mild protein-calorie malnutrition; S32.592A Other specified fracture of left pubis, initial encounter for closed fracture; N30.00 Acute cystitis without hematuria; S32.402D Unspecified fracture of left acetabulum, subsequent encounter for fracture with routine healing; Z86.73 Personal history of transient ischemic attack (TIA), and cerebral infarction without residual deficits; I48.19 Other persistent atrial fibrillation
CPT/HCPCS: 81003; 81015

== ENCOUNTER 2025-02-04 16:03 | Observation (INO) | payer MEDICARE, MEDICAID, SELFPAY ==
[2025-02-04] VITALS (29 sets, daily range): BP systolic 101–158; BP diastolic 32–99; PULSE 56–89; RESP 14–21; TEMP 36.3–37.3; O2SAT 97–100
--- NOTE | 2025-02-04 16:15 | RT.EKG_ITS ---
APPROVED REPORT Exam: Resting ECG Reason for Exam: lightheded Patient Location: E HR:79 bpm ECG Measurements Heart Rate 79 AXIS CA [id number] P [id number] QRSd 82 QRS 75 QT 403 T -52 QTc 462 Conclusion Atrial fibrillation...? atrial activity Low voltage, precordial leads...precordial leads <1.0mV Consider anterior infarct...Q >30mS in V2-V5
[2025-02-04] MEDS: Normal Saline 500 ML IV (16:20)
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
--- NOTE | 2025-02-04 16:30 | DI.RAD_ITS ---
Exam(s) XR CHEST 2V PA LATERAL EXAM: XR CHEST 2V PA LATERAL CLINICAL HISTORY: shortness of breath TECHNIQUE: 2D digital imaging was performed. Two views. COMPARISON: CR XR CHEST 2V PA LATERAL from 12/22/2023 FINDINGS: HEART: Markedly enlarged. Aorta: Not dilated. Calcified. PULMONARY VASCULATURE: Normal. MEDIASTINUM: Unremarkable. LUNGS: Clear. No overt pulmonary edema or focal infiltrate. PLEURAL SPACE: Small bilateral pleural effusions. No pneumothorax. BONE:Unremarkable for age. SOFT TISSUES: Unremarkable. IMPRESSION: Cardiomegaly and small bilateral pleural effusions. DATA REPOSITORY: RADIATION DOSE DELIVERED:
[2025-02-04 17:25] LABS: Abs Immature Grans 0.04 10^3/uL (0.0-0.06); Absolute Lymphocyte Count 1.15 10^3/uL (1.2-3.4); Absolute Monocyte Count 0.66 10^3/uL (0.1-0.8); Absolute Neutrophil Count 4.63 10^3/uL (1.2-6.7); Eosinophils % 1.5 %; Immature Grans % 0.6 %; Lymphocytes % 17.5 %; MCH 26.5 pg (27.0-33.0); MCHC 29.7 % (32.0-36.0); MCV 89 fL (80-95); MPV 10.6 fL (8.0-11.0); Neutrophils % 70.4 %; Platelet Count 246 10^3/uL (130-400); RBC 1.55 10^6/uL (3.93-5.22); RDW 15.4 % (11.7-14.6); RDW-SD 49.7 fL; WBC 6.58 10^3/uL (4.4-10.8)
[2025-02-04 17:32] LABS: HCT 13.8 % (36.0-46.0); HGB 4.1 g/dL (11.2-15.7)
[2025-02-04] MEDS: Pantoprazole 40 MG VIAL IVP (17:35)
[2025-02-04 17:43] LABS: INR 1.8 (0.9-1.1); PTT Activated 28.1 sec (20.6-30.2); Prothrombin Time 17.3 sec (9.1-11.1)
[2025-02-04 17:48] LABS: Diff Comment RBC Morph Reviewed; Hypochromasia 2+; Polychromasia Present
[2025-02-04 17:53] LABS: NT-proBNP 9568 pg/mL (<300)
[2025-02-04 17:56] LABS: ALT 7 U/L (14-59); AST 12 U/L (15-37); Albumin 2.6 g/dL (3.4-5.0); Alkaline Phosphatase 78 U/L (46-116); Anion Gap 6.6 mmol/L (3-11); BUN 31 mg/dL (7-18); Bilirubin, Total 0.4 mg/dL (0.2-1.0); CO2 27.4 mmol/L (21.0-32.0); CREATININE 1.7 mg/dL (0.55-1.02); Calcium 8.7 mg/dL (8.5-10.1); Chloride 103 mmol/L (98-107); Estimated GFR 29.02 (mL/min/1.73m2); Glucose 107 mg/dL (74-106); Magnesium 1.5 mg/dL (1.8-2.4); Potassium 4.4 mmol/L (3.5-5.1); Sodium 137 mmol/L (136-145); TSH (W/Ref FT4) 2.07 uIU/mL (0.36-3.74); Troponin I 14 ng/L (<or=51)
--- NOTE | 2025-02-04 18:54 | DI.VRAD_ITS ---
PROCEDURE INFORMATION: Exam: XR Chest Exam date and time: 02/04/2025 5:30 PM Age: 85 years old Clinical indication: Shortness of breath TECHNIQUE: Imaging protocol: Radiologic exam of the chest. Views: 2 views. COMPARISON: CR XR CHEST 2V PA LATERAL 12/22/2023 1:56 PM FINDINGS: Lungs: The lungs remain hyperaerated and hyperlucent consistent with COPD. Mild bibasilar atelectasis. Pleural spaces: Small left and probable small right pleural effusions. These appear new since previous exam. Heart/Mediastinum: No change cardiomegaly. Bones/joints: Unremarkable. IMPRESSION: No change COPD. Small bilateral pleural effusions. Dictated and Authenticated by: Cherie Jorge MD. Orderin Estefani Martins MD
[2025-02-04] MEDS: MAGNESIUM SULFATE 1 GM/100 ML BAG IV_INF (19:15)
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
--- NOTE | 2025-02-04 21:41 | W.PC.ACHO ---
Registration Status: Primary Language: Preferred Language: ED Information & Data Chief Complaint Dizzy/Sync 02/04/25 16:26 Triage Note PT concerned about 02/04/25 16:06 increasing dizziness over the past several days. Dizziness made worse by standing. PT denies recent injuries or falls. Medical / Surgical History (Last Updated 09/13/24 @ 11:51 by Jeffery Crane) CKD stage 3b, GFR 30-44 ml/min Closed pelvic fracture Erosion of teeth History of alcoholism Umbilical hernia Vitamin D deficiency, unspecified Prurigo nodularis (05/21/15) Cardiomyopathy Generalized osteoarthrosis Closed fracture of left femur (08/22/17) Anemia (08/19/01) (Last Reviewed 02/24/24 @ 15:38 by Mignon Bates MD) Status post open reduction with internal fixation of fracture Total replacement of hip (07/08/11) Debridement, Soft Tissue (09/29/17) Bilateral salpingectomy with oophorectomy Most Recent Vital Signs Temperature 36.6 C 02/04/25 20:30 Pulse 57 L 02/04/25 21:15 Pulse 68 02/04/25 21:15 Respiratory Rate 16 02/04/25 21:15 Blood Pressure 124/58 L 02/04/25 21:15 Blood Pressure Mean 83 02/04/25 21:15 Blood Pressure Position Sitting 02/04/25 16:06 Pulse Oximetry 100 02/04/25 21:15 Oxygen Delivery Method Room Air 02/04/25 20:30 Oxygen Flow Rate 0 02/04/25 20:30 Allergies sulfamethoxazole Adverse Reaction (Mild, Verified 02/04/25 16:10) NAUSEA trimethoprim Adverse Reaction (Mild, Verified 02/04/25 16:10) NAUSEA MELISSA Inhibitors Adverse Reaction (Unknown, Verified 02/04/25 16:10) RENAL INSUFFIENCIENCY benazepril Adverse Reaction (Unknown, Verified 02/04/25 16:10) unknown lovastatin Adverse Reaction (Unknown, Verified 02/04/25 16:10) LIGHTHEADEDNESS methyldopa Adverse Reaction (Unknown, Verified 02/04/25 16:10) unknown simvastatin (From Zocor) Adverse Reaction (Unknown, Verified 02/04/25 16:10) BODY ACHES W/ HIGHER DOSES IV IV Catheter Type [Right Wrist] Saline Lock IV Catheter Type [Left Peripheral IV Antecubital] IV Catheter Gauge [Right Wrist 22 ] IV Catheter Gauge [Left 20 Antecubital] Diet Orders Category Date Time Status Nothing Per Oral [DIET] Nutrition 02/05/25 Breakfast Ordered Diagnostics 02/04/25 02/04/25 Range/Units 17:39 17:15 WBC 6.58 (4.4-10.8) 10^3/uL RBC 1.55 L (3.93-5.22) 10^6/uL Hgb 4.1 L* (11.2-15.7) g/dL Hct 13.8 L* (36.0-46.0) % MCV 89 (80-95) fL MCH 26.5 L (27.0-33.0) pg MCHC 29.7 L (32.0-36.0) % RDW 15.4 H (11.7-14.6) % Plt Count 246 (130-400) 10^3/uL MPV 10.6 (8.0-11.0) fL Immature Gran % 0.6 % Neutrophils % 70.4 % Lymphocytes % 17.5 % Monocytes % 10.0 % Eosinophils % 1.5 % Basophils % 0.0 % Nucleated RBC % 0.0 (0.0-0.3) % Absolute Neutrophils 4.63 (1.2-6.7) 10^3/uL Absolute Lymphocytes 1.15 L (1.2-3.4) 10^3/uL Absolute Monocytes 0.66 (0.1-0.8) 10^3/uL Absolute Eosinophils 0.10 (0.0-0.7) 10^3/uL Absolute Basophils 0.00 (0.0-0.2) 10^3/uL RBC Morphology See Below Polychromasia Present Hypochromasia 2+ PT 17.3 H (9.1-11.1) sec INR 1.8 H (0.9-1.1) APTT 28.1 (20.6-30.2) sec Sodium 137 (136-145) mmol/L Potassium 4.4 (3.5-5.1) mmol/L Chloride 103 (98-107) mmol/L Carbon Dioxide 27.4 (21.0-32.0) mmol/L Anion Gap 6.6 (3-11) mmol/L BUN 31 H (7-18) mg/dL Creatinine 1.7 H (0.55-1.02) mg/dL Est GFR (CKD-EPI 2020) 29.02 (mL/min/1.73m2) Glucose 107 H (74-106) mg/dL Calcium 8.7 (8.5-10.1) mg/dL Magnesium 1.5 L (1.8-2.4) mg/dL Total Bilirubin 0.4 (0.2-1.0) mg/dL AST 12 L (15-37) U/L ALT 7 L (14-59) U/L Alkaline Phosphatase 78 (46-116) U/L Troponin I 14 (<or=51) ng/L NT-Pro-B Natriuret Pep 9568 H (<300) pg/mL Total Protein 6.0 L (6.4-8.2) g/dL Albumin 2.6 L (3.4-5.0) g/dL TSH 2.07 (0.36-3.74) uIU/mL ABO/Rh A Positive Antibody Screen NEGATIVE Crossmatch See Detail Intake and Output - 24 Hour Total 02/04/25 15:55 thru 02/04/25 16:06 Weight 56.2 kg Falls Risk Assessment History of Falls Previous History 02/04/25 16:09 Contributing Factors Impairments 02/04/25 16:09 Ambulatory Aids Uses ambulatory device 02/04/25 16:09 Tubes/Lines None 02/04/25 16:09 Gait Evaluation W/no contributing factors 02/04/25 16:09 Cognition No cognitive impairment 02/04/25 16:09 Fall Total Score 43 02/04/25 16:09 Level of Risk Moderate Risk 02/04/25 16:09 Problems (Last Updated 09/13/24 @ 11:51 by Jeffery Crane) GI bleeding (Chronic) Abnormal blood electrolyte level (Acute) Atrial fibrillation (Chronic) 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) Post-nasal drainage (Acute) Asthma (Chronic) Chronic anticoagulation (Acute) Hypothyroidism (Chronic) v v v v v v v v v Sending and/or Receiving Nurses: Please use comment section below to note any information pertinent to the patient hand-off not included above. Information / Comments: Pt reported to ED with complaints for lightheadedness/dizziness for the past few days. Hx of afib, on anticoagulants. Hgb of 4.1. Pt ordered 3 units of PRBCs. 1st unit transfused, second being started by ED RN before transfer to floor. Stool was heme+, pt states she has had dark stools for the past few months but believed it was d/t her supplements. Pt A&Ox4, VSS. Report received from: Marie Correa RN
[2025-02-04] MEDS: Normal Saline Flush 10 ML SYR IVP (22:42)
[2025-02-05] VITALS (12 sets, daily range): BP systolic 114–147; BP diastolic 54–78; PULSE 57–79; RESP 12–22; TEMP 36.3–36.9; O2SAT 96–100
[2025-02-05] MEDS: Levothyroxine 88 MCG TAB PO (06:32)
[2025-02-05 07:00] LABS: Abs Immature Grans 0.04 10^3/uL (0.0-0.06); Absolute Basophil Count 0.02 10^3/uL (0.0-0.2); Absolute Eosinophil Count 0.13 10^3/uL (0.0-0.7); Absolute Lymphocyte Count 1.26 10^3/uL (1.2-3.4); Absolute Monocyte Count 0.62 10^3/uL (0.1-0.8); Absolute Neutrophil Count 4.38 10^3/uL (1.2-6.7); Basophils % 0.3 %; HCT 31.1 % (36.0-46.0); Immature Grans % 0.6 %; Lymphocytes % 19.5 %; MCH 28.4 pg (27.0-33.0); MCHC 32.8 % (32.0-36.0); MCV 87 fL (80-95); MPV 10.5 fL (8.0-11.0); Monocytes % 9.6 %; Nucleated RBC 0.3 % (0.0-0.3); Platelet Count 193 10^3/uL (130-400); RBC 3.59 10^6/uL (3.93-5.22); RDW 13.9 % (11.7-14.6); RDW-SD 44.2 fL; WBC 6.45 10^3/uL (4.4-10.8)
[2025-02-05 07:15] LABS: Anion Gap 8.1 mmol/L (3-11); BUN 28 mg/dL (7-18); CO2 25.9 mmol/L (21.0-32.0); CREATININE 1.5 mg/dL (0.55-1.02); Calcium 8.6 mg/dL (8.5-10.1); Chloride 104 mmol/L (98-107); Estimated GFR 33.73 (mL/min/1.73m2); Glucose 97 mg/dL (74-106); Magnesium 1.8 mg/dL (1.8-2.4); Potassium 4.3 mmol/L (3.5-5.1); Sodium 138 mmol/L (136-145)
[2025-02-05 07:20] LABS: HGB 10.2 g/dL (11.2-15.7)
[2025-02-05] MEDS: Budesonide/Formoterol 80/4.5 6.9 GM 60 PUFF INH IH ×2 (08:49→19:59)
[2025-02-05] MEDS: Magnesium Oxide 400 MG TAB PO ×2 (08:53→19:52)
[2025-02-05] MEDS: Pantoprazole 40 MG TABCR PO (08:53)
[2025-02-05] MEDS: Normal Saline Flush 10 ML SYR IVP ×2 (08:54→19:51)
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
--- NOTE | 2025-02-05 17:20 | W.PM.PROGNOT ---
Date of Service Date of service: 02/05/25 Time of Service: 17:20 Assessment and Plan Assessment and plan (1) Hx TIA/stroke w/o resid: Status: Chronic Assessment and plan: -hold anticoag, not on ASA or other anti-platelet agents -BP at goal (2) Post-nasal drainage: Status: Acute Assessment and plan: Continue certerizine (3) Asthma: Status: Chronic Assessment and plan: -continue usual respiratory medications (4) Chronic anticoagulation: Status: Acute Assessment and plan: -due to PAF, now on hold (5) Hypothyroidism: Status: Chronic Assessment and plan: -continue usual dose of synthroid (6) Atrial fibrillation: Status: Chronic Assessment and plan: -holding xarelto due to GI bleeding -continue bisoprolol -regular on exam (7) Cardiomyopathy: Assessment and plan: -see details in hx -continue beta tricia (8) GI bleeding: Status: Chronic Assessment and plan: acute GI bleeding - hgb 10.2 this am no known hx of GI bleeding -most recent colonoscopy 10+ years ago and also included EGD due to dysphagia-pt describes possible esophageal stricture -hold xarelto-of note pt had acute CVA within the past 6 months continue PPI PO BID Exam Const General: no acute distress Orientation: alert HENMT Head: normal to inspection Ears: external ears normal General nose exam: external nose normal Mouth: moist mucous membranes Eyes General: appearance normal, both eyes and all related structures Neck Neck: normal visual inspection Resp Effort & Inspection: normal respiratory effort and able to speak in complete sentences Auscultation: clear to auscultation bilaterally Cardio Jugular venous pressure: no JVD Rate: regular rate Skin General skin exam: no rashes or lesions noted Neuro General: patient alert and patient oriented x3 Extrem General: normal to inspection Psych Mental Status: mental status grossly normal Objective Last Vital Signs Temp 36.9 C 02/05/25 15:51 Pulse 78 02/05/25 15:51 Resp 12 02/05/25 15:51 BP 115/54 L 02/05/25 15:51 Pulse Ox 99 02/05/25 15:51 Laboratory Results - last 24 hr 02/04/25 02/04/25 02/05/25 17:15 17:39 06:50 WBC 6.58 6.45 RBC 1.55 L 3.59 L Hgb 4.1 L* 10.2 L D Hct 13.8 L* 31.1 L MCV 89 87 MCH 26.5 L 28.4 MCHC 29.7 L 32.8 D RDW 15.4 H 13.9 Plt Count 246 193 MPV 10.6 10.5 Immature Gran % 0.6 0.6 Neutrophils % 70.4 68.0 Lymphocytes % 17.5 19.5 Monocytes % 10.0 9.6 Eosinophils % 1.5 2.0 Basophils % 0.0 0.3 Nucleated RBC % 0.0 0.3 Absolute Neutrophils 4.63 4.38 Absolute Lymphocytes 1.15 L 1.26 Absolute Monocytes 0.66 0.62 Absolute Eosinophils 0.10 0.13 Absolute Basophils 0.00 0.02 RBC Morphology See Below Polychromasia Present Hypochromasia 2+ PT 17.3 H INR 1.8 H APTT 28.1 Sodium 137 138 Potassium 4.4 4.3 Chloride 103 104 Carbon Dioxide 27.4 25.9 Anion Gap 6.6 8.1 BUN 31 H 28 H Creatinine 1.7 H 1.5 H Est GFR (CKD-EPI 2020) 29.02 33.73 Glucose 107 H 97 Calcium 8.7 8.6 Magnesium 1.5 L 1.8 Total Bilirubin 0.4 AST 12 L ALT 7 L Alkaline Phosphatase 78 Troponin I 14 NT-Pro-B Natriuret Pep 9568 H Total Protein 6.0 L Albumin 2.6 L TSH 2.07 ABO/Rh A Positive Antibody Screen NEGATIVE Crossmatch See Detail PAWSS Have you Been Recently Intoxicated or Drunk Within the Last 30 days?: No Have you Ever Experienced Previous Episodes of Alcohol Withdrawal?: No Have you ever Experienced Withdrawal Seizures?: No Have you ever Experienced Delirium Tremens(DT)s?: No Have you ever undergone Alcohol Rehabilitation Treatment (i.e, inpt ot outpatient treatment programs)?: No Have you ever Experienced Blackouts?: No Have you ever Combined Alcohol with other Downers within the last 90 days?: No Have you ever Combined Alcohol with any other Substance of Abuse during the last 90 days?: No Positive Blood Alcohol level on Presentation? [PCS.BAL]: No Evidence of Increased Autonomic Activity (i.e. HR>120, tremor, sweating, agitation, nausea)?: No Result: 0 Time Spent with Patient Time Spent with Patient: <25 minutes Time was spent: preparing to see the patient(eg.review tests), ordering medications,tests, procedures, referring, communicating with other health campground caretaker, indepentently interpreting results, counseling the patient and care coordination
[2025-02-05 17:57] LABS: HGB 10.4 g/dL (11.2-15.7)
[2025-02-05] MEDS: Bisoprolol 5 MG TAB PO (19:51)
[2025-02-06] MEDS: Levothyroxine 88 MCG TAB PO (06:06)
[2025-02-06 07:04] LABS: Bilirubin Negative (Negative); Blood Trace-lysed (Negative); Clarity Clear (Clear); Glucose Negative (Negative); Ketones Negative (Negative); Leukocyte Esterase Trace (Negative); Nitrite Negative (Negative); Specific Gravity 1.015 (1.005-1.025)
[2025-02-06 07:11] LABS: Abs Immature Grans 0.06 10^3/uL (0.0-0.06); Absolute Basophil Count 0.02 10^3/uL (0.0-0.2); Absolute Eosinophil Count 0.24 10^3/uL (0.0-0.7); Absolute Monocyte Count 0.72 10^3/uL (0.1-0.8); Absolute Neutrophil Count 4.93 10^3/uL (1.2-6.7); Basophils % 0.3 %; Eosinophils % 3.4 %; HCT 30.3 % (36.0-46.0); HGB 9.8 g/dL (11.2-15.7); Immature Grans % 0.8 %; Lymphocytes % 15.6 %; MCH 28.2 pg (27.0-33.0); MCHC 32.3 % (32.0-36.0); MCV 87 fL (80-95); MPV 10.5 fL (8.0-11.0); Monocytes % 10.2 %; Neutrophils % 69.7 %; Nucleated RBC 0.4 % (0.0-0.3); Platelet Count 188 10^3/uL (130-400); RBC 3.48 10^6/uL (3.93-5.22); RDW 14.5 % (11.7-14.6); RDW-SD 46.1 fL; WBC 7.07 10^3/uL (4.4-10.8)
[2025-02-06 07:20] LABS: Anion Gap 6.2 mmol/L (3-11); BUN 23 mg/dL (7-18); CO2 26.8 mmol/L (21.0-32.0); CREATININE 1.4 mg/dL (0.55-1.02); Calcium 8.5 mg/dL (8.5-10.1); Chloride 102 mmol/L (98-107); Estimated GFR 36.64 (mL/min/1.73m2); Glucose 101 mg/dL (74-106); Magnesium 1.7 mg/dL (1.8-2.4); Sodium 135 mmol/L (136-145)
[2025-02-06 07:27] LABS: Bacteria Few HPF (Negative); C & S Indicated? No; Casts Negative LPF (Negative); Crystals Negative HPF (Negative); Epithelial Cells Few HPF (Negative); Mucus Negative (Negative)
[2025-02-06 08:10] VITALS: BP 134/69; PULSE 78; RESP 18; TEMP 36.4; O2SAT 99
[2025-02-06] MEDS: Normal Saline Flush 10 ML SYR IVP (08:13)
[2025-02-06] MEDS: Bisoprolol 5 MG TAB PO (08:13)
[2025-02-06] MEDS: Magnesium Oxide 400 MG TAB PO ×2 (08:13→09:34)
[2025-02-06] MEDS: Calcium 600mg/Vit D 200U TAB 1 TAB PO (08:14)
[2025-02-06] MEDS: Pantoprazole 40 MG TABCR PO (08:14)
[2025-02-06] MEDS: Budesonide/Formoterol 80/4.5 6.9 GM 60 PUFF INH IH (08:38)
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
[2025-02-06 12:15] VITALS: BP 127/61; PULSE 77; RESP 18; TEMP 36.5; O2SAT 98
--- NOTE | 2025-02-06 15:12 | CMDISCH_ITS ---
Date of service: 02/06/25 Time of Service: 15:28 LACE Index Scoring Tool Questions: Length of Stay (in days): 2 Was the patient admitted via the E.D.?: Yes Comorbidities: Cerebrovascular Disease, Chronic Pulmonary Disease and Liver or Renal Disease E.D. Visits: 3 Answers: Total Score: 13 Risk of Readmission: High Risk Care Management Discharge Plan Reason for Hospitalization: anemia Discharge Plan: Reta will discharge home this afternoon with no new services. She will have outpatient labs on 02/09. She will f/u with her PCP and with general surgery - both of these offices have been notified of her need for appointments. Reta will transport home with her daughter and continue per her plan of care. Patient/Family Education Needs: Review of discharge instructions, activity, limitations, and discuss Ask me 3. SDOH Health Related Social Needs: Health related social needs problems related to housin g/economic circumsta nces (Z59.89), feeling lonely/isolated (Z60.8) Health related social needs details Has meals on wheel s to assist with meals
[2025-02-06 15:58] VITALS: BP 130/60; PULSE 76; RESP 16; TEMP 36.4; O2SAT 99
== END 2025-02-06 17:48 | disposition home or self-care (01) ==
LOC: ER 21:58 → MS 02-05 07:54
PROVIDERS: Admitting Provider Family Medicine; Emergency Provider Emergency Medicine; PCP Family Medicine; Responsible Provider Nurse Practitioner Family; Visit Provider Family Medicine
DX: K92.2 Gastrointestinal hemorrhage, unspecified; R53.1 Weakness; E83.42 Hypomagnesemia; J45.909 Unspecified asthma, uncomplicated; I48.19 Other persistent atrial fibrillation; D50.0 Iron deficiency anemia secondary to blood loss (chronic); E03.9 Hypothyroidism, unspecified; I42.9 Cardiomyopathy, unspecified; R42 Dizziness and giddiness; R06.02 Shortness of breath; E46 Unspecified protein-calorie malnutrition; N18.32 Chronic kidney disease, stage 3b; H90.3 Sensorineural hearing loss, bilateral; E78.5 Hyperlipidemia, unspecified; I12.9 Hypertensive chronic kidney disease with stage 1 through stage 4 chronic kidney disease, or unspecified chronic kidney disease; R09.82 Postnasal drip; Z86.73 Personal history of transient ischemic attack (TIA), and cerebral infarction without residual deficits; Z79.899 Other long term (current) drug therapy
CPT/HCPCS: 00123; 36415; 36430; 80048; 80053; 86850; 86900; 86901; 86920; 93005; 94640; 96361; 96365; 96366; 96368; 96375; 99285; 71046; 81003; 81015; 83735; 83880; 84443; 84484; 85014; 85018; 85025; 85610; 85730; 93010; 94664; 99223; 99231; 99232; 99239; G0378; J2470; J3475; J7168; P9016

== ENCOUNTER 2025-02-09 08:07 | Outpatient (CLI) | payer MEDICARE, MEDICAID, SELFPAY ==
[2025-02-09 12:37] LABS: HCT 31.3 % (36.0-46.0); HGB 9.6 g/dL (11.2-15.7); MCH 28.1 pg (27.0-33.0); MCHC 30.7 % (32.0-36.0); MCV 92 fL (80-95); MPV 10.9 fL (8.0-11.0); Platelet Count 198 10^3/uL (130-400); RBC 3.42 10^6/uL (3.93-5.22); RDW 15.1 % (11.7-14.6)
[2025-02-09 12:56] LABS: ALT 8 U/L (14-59); AST 17 U/L (15-37); Albumin 2.8 g/dL (3.4-5.0); Alkaline Phosphatase 76 U/L (46-116); Anion Gap 7.4 mmol/L (3-11); BUN 17 mg/dL (7-18); Bilirubin, Total 0.7 mg/dL (0.2-1.0); CO2 27.6 mmol/L (21.0-32.0); CREATININE 1.2 mg/dL (0.55-1.02); Calcium 8.7 mg/dL (8.5-10.1); Chloride 102 mmol/L (98-107); Estimated GFR 44.08 (mL/min/1.73m2); Glucose 102 mg/dL (74-106); Magnesium 1.5 mg/dL (1.8-2.4); Potassium 4.5 mmol/L (3.5-5.1); Sodium 137 mmol/L (136-145); Total Protein 6.6 g/dL (6.4-8.2)
== END 2025-02-09 08:08 | disposition home or self-care (01) ==
PROVIDERS: PCP Family Medicine; Visit Provider Family Medicine
DX: K92.1 Melena (principal); E44.1 Mild protein-calorie malnutrition; Z00.00 Encounter for general adult medical examination without abnormal findings
CPT/HCPCS: 36415; 80053; 85027; 83735

== ENCOUNTER 2025-02-26 15:26 | Inpatient (IN) | payer MEDICARE, MEDICAID, SELFPAY ==
[2025-02-26] VITALS (70 sets, daily range): BP systolic 78–148; BP diastolic 33–98; PULSE 66–101; RESP 12–27; TEMP 36.6–37.5; O2SAT 93–100
--- NOTE | 2025-02-26 15:20 | RT.EKG_ITS ---
APPROVED REPORT Exam: Resting ECG Reason for Exam: SOB Patient Location: E HR:88 bpm ECG Measurements Heart Rate 88 AXIS TN [id number] P [id number] QRSd 82 QRS 64 QT 360 T 260 QTc 436 Conclusion Atrial fibrillation, rate 88 No other interval abnormalities T wave inversions/biphasic leads I, II, aVF, V5/V6, increased from priors No STEMI
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
[2025-02-26 16:14] LABS: Abs Immature Grans 0.03 10^3/uL (0.0-0.06); Absolute Basophil Count 0.01 10^3/uL (0.0-0.2); Absolute Eosinophil Count 0.07 10^3/uL (0.0-0.7); Absolute Lymphocyte Count 1.07 10^3/uL (1.2-3.4); Absolute Monocyte Count 0.93 10^3/uL (0.1-0.8); Absolute Neutrophil Count 6.84 10^3/uL (1.2-6.7); Basophils % 0.1 %; Eosinophils % 0.8 %; Immature Grans % 0.3 %; MCH 26.1 pg (27.0-33.0); MCHC 29.9 % (32.0-36.0); MCV 88 fL (80-95); MPV 10.5 fL (8.0-11.0); Monocytes % 10.4 %; Neutrophils % 76.4 %; Platelet Count 347 10^3/uL (130-400); RBC 1.53 10^6/uL (3.93-5.22); RDW 15.8 % (11.7-14.6); RDW-SD 50.9 fL; WBC 8.95 10^3/uL (4.4-10.8)
--- NOTE | 2025-02-26 16:25 | DI.RAD_ITS ---
Exam(s) XR PORTABLE CHEST AP EXAM: XR PORTABLE CHEST AP CLINICAL HISTORY: Chest pain TECHNIQUE: 2D digital imaging was performed of the chest. One image was obtained. An AP view was ob tained. COMPARISON: CR XR CHEST 2V PA LATERAL from 12/22/2023 CR,XR XR CHEST 2V PA LATERAL from 02/04/2025 FINDINGS: MEDIASTINUM: Normal. HEART: Normal. PULMONARY VASCULATURE: Normal. LUNGS: Clear. PLEURAL SPACE: No right pleural effusion. No pneumothorax. There is unchanged blunting of the left costophrenic angle. This may represent scarring or small effusion. BONE:Within normal limits for the patient's age. OTHER FINDINGS:Normal. IMPRESSION: No acute pulmonary findings. DATA REPOSITORY: RADIATION DOSE DELIVERED:
[2025-02-26 16:39] LABS: Anion Gap 4.9 mmol/L (3-11); BUN 32 mg/dL (7-18); CO2 27.1 mmol/L (21.0-32.0); CREATININE 1.5 mg/dL (0.55-1.02); Calcium 8.7 mg/dL (8.5-10.1); Chloride 102 mmol/L (98-107); Estimated GFR 33.73 (mL/min/1.73m2); Glucose 114 mg/dL (74-106); Lipase 29 U/L (<78); Magnesium 1.8 mg/dL (1.8-2.4); Potassium 4.5 mmol/L (3.5-5.1); Sodium 134 mmol/L (136-145); Troponin I 14 ng/L (<or=51)
[2025-02-26 16:59] LABS: D-Dimer 727 ng/mlFEU (<500)
--- NOTE | 2025-02-26 17:15 | DI.CT_ITS ---
Exam(s) CT ABDOMEN PELVIS CTA EXAM: CT ABDOMEN PELVIS CTA CLINICAL HISTORY: GI bleed. TECHNIQUE: Imaging Protocol: Axial CT angiography was performed with multi-slice acquisition and m ulti-planar and/or 3D reconstructions. CONTRAST MATERIAL: Intravenous: Omnipaque 350 Contrast volume:100mL Oral: No COMPARISON: CT CT PELVIC W from 10/20/[address] BRAIN NECK CTA from 08/14/[address] LOWER EXTREMITY LT WO from 09/12/2024 FINDINGS: The examination is limited due to patient motion artifact. ABDOMEN AND PELVIS: Abdomen: Celiac axis/mesenteric arteries: Atherosclerotic calcification is present. There is moderate narrowi ng of the superior mesenteric artery. That Renal Arteries: Of the origins, right greater than left. There is atherosclerotic calcification seen in the proximal renal arteries with marked bilateral Aorta: No evidence of occlusion or significant stenosis. No aneurysm or dissection. Atherosclerotic calcification is present. Pelvis: Iliac Arteries: There is marked atherosclerotic calcification with marked areas of stenosis seen in the internal iliac arteries bilaterally. Common Femoral Arteries: Atherosclerotic calcification is present with areas of significant stenosis seen in the femoral arteries bilaterally. ABDOMEN: Lung bases: There is a small left pleural effusion. Cardiomegaly. Liver: Normal density. No measurable mass. Portal, Superior Mesenteric, and Splenic Veins: Unremarkable. Gallbladder and Biliary Tract: Cholelithiasis. No significant biliary ductal dilatation. Pancreas: Normal density, no abnormal calcifications or inflammatory process. Spleen: Normal. Adrenals: No masses seen. Kidneys: There is bilateral renal cortical atrophy. No radiodense stones or obstructive uropathy. Th ere is a simple cyst in the right kidney. No follow-up is recommended. Bowel: There is diverticulosis of the colon without evidence of acute diverticulitis. There is no ev idence of bowel obstruction or bowel wall thickening. There is no evidence of appendicitis. No evid ence of active bleeding occurring on this examination Peritoneal Cavity: No ascites, collection or mesenteric inflammatory response. No free air. Lymph Nodes: Within normal limits. Bones: There is artifact from the patient's left total hip arthroplasty. Since the prior examination there is cortical irregularity and sclerosis in the left sacrum consistent with an insufficiency fra cture. The bones are osteopenic. There are old healed pelvic fractures. There is an old compressio n fracture of the superior endplate of L3. There is a stable area of lucency in the right pubic bone . Age-appropriate degenerative changes are present throughout the lumbar spine. Soft Tissues: There is a small fat containing umbilical hernia. There is marked fatty atrophy partic ularly involving the left psoas muscle and the left gluteal muscles. PELVIS: Bladder: Symmetric distention, no gross wall thickening. Reproductive Organs: Unremarkable as visualized. Lymph Nodes: Within normal limits. Bones: Within normal limits. IMPRESSION: 1. No evidence of active bleeding seen on the arterial or venous images in the bowel. 2. Colonic diverticulosis without evidence of acute diverticulitis. 3. Extensive atherosclerotic calcification resulting in significant areas of stenoses involving the r enal arteries, superior mesenteric artery, internal iliac arteries and femoral arteries bilaterally. 4. No evidence of abdominal aortic dissection or aneurysm. 5. Small left pleural effusion. 6. Cholelithiasis. No significant biliary ductal dilatation. RADIATION DOSE DELIVERED: 1,628.74mGy.cm Total DLP DATA REPOSITORY: All CT scans at this facility are submitted to the National Radiology Data Registry (NRDR) Dose Index Registry (DIR) with the [employer] (ACR). RADIATION OPTIMIZATION: All CT scans at this facility use at least one of these dose optimization te chniques: automated exposure control; mA and/or kV adjustment per patient size (includes targeted exa ms where dose is matched to clinical indication); or iterative reconstruction.
[2025-02-26] MEDS: Pantoprazole 40 MG VIAL 80 MG IVP (17:34)
[2025-02-26] MEDS: CEFEPIME 2 GM in Normal Saline 100 ML IVPB (17:43)
[2025-02-26] MEDS: Omnipaque 350 MG/ML 100 ML BTL IJ (18:04)
[2025-02-26] MEDS: Normal Saline - Diluent 50 ML VIAL IJ (18:06)
[2025-02-26 18:33] LABS: Lactate 2.2 mmol/L (<or=2.0)
[2025-02-26] MEDS: HUMAN PROTHROM. CMPX. 1,500 UNIT in EMPTY EVACUATED CONTAINER 1 EACH 360 UNIT IV (18:48)
[2025-02-26 18:58] LABS: Troponin I 14 ng/L (<or=51)
[2025-02-26] MEDS: VANCOMYCIN 1,100 MG in Normal Saline 500 ML 333.3333 MG IVPB (19:39)
[2025-02-26 21:00] LABS: Troponin I 17 ng/L (<or=51)
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
[2025-02-26 22:04] LABS: INR 1.2 (0.9-1.1); PTT Activated 23.1 sec (20.6-30.2); Prothrombin Time 11.6 sec (9.1-11.1)
[2025-02-26 22:53] LABS: Bilirubin Negative (Negative); Blood Negative (Negative); Clarity Clear (Clear); Glucose Negative (Negative); Ketones Negative (Negative); Leukocyte Esterase Trace (Negative); Nitrite Negative (Negative); Urobilinogen 0.2 mg/dL (Up to 0.2)
--- NOTE | 2025-02-26 22:53 | W.PC.ACHO ---
Registration Status: Primary Language: Preferred Language: ED Information & Data Chief Complaint Chest Pain 02/26/25 17:25 Chief Complaint Chest Pain 02/26/25 15:34 Other Complaint SOB 02/26/25 15:18 Triage Note Pain starting in center of 02/26/25 15:18 chest radiating to both shoulders, persistent shortness of breath ( improved with relaxation). Productive cough (white sputum). PT reports symptoms started 1.5 weeks ago and that its been getting worse over time. Medical / Surgical History (Last Reviewed 02/26/25 @ 21:41 by Jeffery Crane) Closed fracture of left inferior pubic ramus (08/2024) Closed fracture of left acetabulum (08/2024) Post-nasal drainage Hx TIA/stroke w/o resid (09/2024) Asthma CKD stage 3b, GFR 30-44 ml/min Closed pelvic fracture Erosion of teeth History of alcoholism Umbilical hernia Vitamin D deficiency, unspecified Prurigo nodularis (05/21/15) Cardiomyopathy Generalized osteoarthrosis Closed fracture of left femur (08/22/17) Anemia (08/19/01) (Last Reviewed 02/26/25 @ 21:41 by Jeffery Crane) Status post open reduction with internal fixation of fracture Total replacement of hip (07/08/11) Debridement, Soft Tissue (09/29/17) Bilateral salpingectomy with oophorectomy Most Recent Vital Signs Temperature 36.8 C 02/26/25 22:22 Temperature Source Oral 02/26/25 15:18 Pulse 90 02/26/25 22:30 Pulse 87 02/26/25 22:20 Respiratory Rate 16 02/26/25 22:30 Respiratory Effort Non-Labored, Short of Breath 02/26/25 17:25 Respiratory Depth Normal 02/26/25 17:25 Respiratory Pattern Normal 02/26/25 17:25 Blood Pressure 144/70 H 02/26/25 22:30 Blood Pressure Mean 102 02/26/25 22:16 Blood Pressure Position Sitting 02/26/25 15:18 Pulse Oximetry 99 02/26/25 22:30 Oxygen Delivery Method Room Air 02/26/25 22:22 Oxygen Flow Rate 0 02/26/25 22:22 Allergies sulfamethoxazole Adverse Reaction (Mild, Verified 02/26/25 15:25) NAUSEA trimethoprim Adverse Reaction (Mild, Verified 06/09/25 15:25) NAUSEA MELISSA Inhibitors Adverse Reaction (Unknown, Verified 02/26/25 15:25) RENAL INSUFFIENCIENCY benazepril Adverse Reaction (Unknown, Verified 02/26/25 15:25) unknown lovastatin Adverse Reaction (Unknown, Verified 02/26/25 15:25) LIGHTHEADEDNESS methyldopa Adverse Reaction (Unknown, Verified 02/26/25 15:25) unknown simvastatin (From Zocor) Adverse Reaction (Unknown, Verified 02/26/25 15:25) BODY ACHES W/ HIGHER DOSES Precautions Isolation Standard precaution 02/26/25 17:25 Active Medications Generic Name Dose Route Start Last Admin Trade Name Freq PRN Reason Stop Dose Admin Iohexol 100 ml 02/26/25 18:15 02/26/25 18:04 Omnipaque 350 Mg/Ml 100 Ml Btl IJ 03/28/25 23:59 100 ml DIRECTED DENISSE Administration Sodium Chloride 50 ml 02/26/25 18:15 02/26/25 18:06 Normal Saline - Diluent 50 Ml Vial IJ 50 ml .FOR DI USE DENISSE Administration IV IV Catheter Type [Right Peripheral IV Antecubital] IV Catheter Type [Left Peripheral IV Antecubital] IV Catheter Gauge [Right 20 Antecubital] IV Catheter Gauge [Left 18 Antecubital] Diet Orders Category Date Time Status Regular/Normal [DIET] Nutrition 02/27/25 Breakfast Ordered Diagnostics 02/26/25 02/26/25 02/26/25 Range/Units 22:30 20:20 18:25 WBC (4.4-10.8) 10^3/uL RBC (3.93-5.22) 10^6/uL Hgb (11.2-15.7) g/dL Hct (36.0-46.0) % MCV (80-95) fL MCH (27.0-33.0) pg MCHC (32.0-36.0) % RDW (11.7-14.6) % Plt Count (130-400) 10^3/uL MPV (8.0-11.0) fL Immature Gran % % Neutrophils % % Lymphocytes % % Monocytes % % Eosinophils % % Basophils % % Nucleated RBC % (0.0-0.3) % Absolute Neutrophils (1.2-6.7) 10^3/uL Absolute Lymphocytes (1.2-3.4) 10^3/uL Absolute Monocytes (0.1-0.8) 10^3/uL Absolute Eosinophils (0.0-0.7) 10^3/uL Absolute Basophils (0.0-0.2) 10^3/uL PT (9.1-11.1) sec INR (0.9-1.1) APTT (20.6-30.2) sec D-Dimer (<500) ng/mlFEU VBG Lactate 2.2 H* (<or=2.0) mmol/L Sodium (136-145) mmol/L Potassium (3.5-5.1) mmol/L Chloride (98-107) mmol/L Carbon Dioxide (21.0-32.0) mmol/L Anion Gap (3-11) mmol/L BUN (7-18) mg/dL Creatinine (0.55-1.02) mg/dL Est GFR (CKD-EPI 2020) (mL/min/1.73m2) Glucose (74-106) mg/dL Calcium (8.5-10.1) mg/dL Magnesium (1.8-2.4) mg/dL Troponin I 17 14 (<or=51) ng/L Lipase (<78) U/L Urine Color Pending Urine Clarity Pending Urine pH Pending Ur Specific [place] Pending Urine Protein Pending Urine Ketones Pending Urine Blood Pending Urine Nitrite Pending Urine Bilirubin Pending Urine Urobilinogen Pending Ur Leukocyte Esterase Pending Urine Glucose Pending ABO/Rh Antibody Screen Crossmatch 02/26/25 02/26/25 Range/Units 17:20 16:00 WBC 8.95 (4.4-10.8) 10^3/uL RBC 1.53 L (3.93-5.22) 10^6/uL Hgb 4.0 L* (11.2-15.7) g/dL Hct 13.4 L* (36.0-46.0) % MCV 88 (80-95) fL MCH 26.1 L (27.0-33.0) pg MCHC 29.9 L (32.0-36.0) % RDW 15.8 H (11.7-14.6) % Plt Count 347 (130-400) 10^3/uL MPV 10.5 (8.0-11.0) fL Immature Gran % 0.3 % Neutrophils % 76.4 % Lymphocytes % 12.0 % Monocytes % 10.4 % Eosinophils % 0.8 % Basophils % 0.1 % Nucleated RBC % 0.0 (0.0-0.3) % Absolute Neutrophils 6.84 H (1.2-6.7) 10^3/uL Absolute Lymphocytes 1.07 L (1.2-3.4) 10^3/uL Absolute Monocytes 0.93 H (0.1-0.8) 10^3/uL Absolute Eosinophils 0.07 (0.0-0.7) 10^3/uL Absolute Basophils 0.01 (0.0-0.2) 10^3/uL PT 11.6 H (9.1-11.1) sec INR 1.2 H (0.9-1.1) APTT 23.1 (20.6-30.2) sec D-Dimer 727 H (<500) ng/mlFEU VBG Lactate (<or=2.0) mmol/L Sodium 134 L (136-145) mmol/L Potassium 4.5 (3.5-5.1) mmol/L Chloride 102 (98-107) mmol/L Carbon Dioxide 27.1 (21.0-32.0) mmol/L Anion Gap 4.9 (3-11) mmol/L BUN 32 H (7-18) mg/dL Creatinine 1.5 H (0.55-1.02) mg/dL Est GFR (CKD-EPI 2020) 33.73 (mL/min/1.73m2) Glucose 114 H (74-106) mg/dL Calcium 8.7 (8.5-10.1) mg/dL Magnesium 1.8 (1.8-2.4) mg/dL Troponin I 14 (<or=51) ng/L Lipase 29 (<78) U/L Urine Color Urine Clarity Urine pH Ur Specific [place] Urine Protein Urine Ketones Urine Blood Urine Nitrite Urine Bilirubin Urine Urobilinogen Ur Leukocyte Esterase Urine Glucose ABO/Rh A Positive Antibody Screen NEGATIVE Crossmatch See Detail 02/26/25 14:35 Blood Culture - Pending Blood 02/26/25 16:00 Blood Culture - Pending Blood Intake and Output - 24 Hour Total 02/26/25 15:03 thru 02/26/25 22:29 Intake Total 1260 Balance 1260 Weight 56.245 kg Intake: IV 660 Blood Product 600 Rbc Leuko Reduced Unit 250 [id number] Rbc Leuko Reduced Unit 350 [id number] Falls Risk Assessment History of Falls Previous History 02/26/25 17:25 Contributing Factors Unstable,Impairments, 02/26/25 17:25 Incontinence,Medications Ambulatory Aids Uses ambulatory device 02/26/25 17:25 Tubes/Lines None 02/26/25 17:25 Gait Evaluation W/any additional score 02/26/25 17:25 Cognition No cognitive impairment 02/26/25 17:25 Fall Total Score 62 02/26/25 17:25 Level of Risk High Risk 02/26/25 17:25 Problems (Last Reviewed 02/26/25 @ 21:41 by Jeffery Crane) DVT prophylaxis (Acute) Symptomatic anemia (Acute) ABLA (acute blood loss anemia) (Acute) Hypothyroidism (Chronic) Atrial fibrillation (Chronic) GI bleeding (Chronic) Protein calorie malnutrition (Chronic) v v v v v v v v v Sending and/or Receiving Nurses: Please use comment section below to note any information pertinent to the patient hand-off not included above. Information / Comments: BRIGID kumar for dizziness, chest pain radiating to both shoulders, SOB Has had a productive cough x1wk worsening. Found to have low H/H - 3 units of blood ordered. She has received 2 units, has 1 more ready. Has gotten vanco, cefepime, protonix. Has not gotten up OOB, requested bed lu. Pt is trying to void at this time. A&O 22g LAC by EMS 18g RAC Report received from: Nick @ [id number]
[2025-02-26 23:04] LABS: Bacteria Rare HPF (Negative); C & S Indicated? No; Casts Negative LPF (Negative); Crystals Negative HPF (Negative); Epithelial Cells Rare HPF (Negative); Mucus Negative (Negative); RBC Negative HPF (0-2)
[2025-02-26] MEDS: Miconazole 2% Topical Powder 85 GM BTL (23:51)
[2025-02-27] VITALS (8 sets, daily range): BP systolic 91–124; BP diastolic 48–84; PULSE 70–98; RESP 18–22; TEMP 36.7–37.4; O2SAT 96–99
--- NOTE | 2025-02-27 03:28 | NUR.NOTE ---
Nursing Note: Pt Awake and watching TV when RN came on shift. TEDS and SCD's in place. New cup of ice chips given at Pt request. Cardiac Lead replaced.
--- NOTE | 2025-02-27 04:17 | NUR.NOTE ---
Nursing Note: Pt has history of being very itchy, Barrier cream applied to back and abdomen. Pt said it helped earlier with some itchiness.
[2025-02-27] MEDS: Levothyroxine 88 MCG TAB PO (05:51)
[2025-02-27 07:20] LABS: HCT 36.3 % (36.0-46.0); HGB 12.2 g/dL (11.2-15.7); MCH 29.2 pg (27.0-33.0); MCHC 33.6 % (32.0-36.0); MCV 87 fL (80-95); MPV 10.6 fL (8.0-11.0); Platelet Count 209 10^3/uL (130-400); RBC 4.18 10^6/uL (3.93-5.22); RDW 14.8 % (11.7-14.6); RDW-SD 47.1 fL; WBC 13.86 10^3/uL (4.4-10.8)
[2025-02-27 07:39] LABS: BUN 36 mg/dL (7-18); CREATININE 1.5 mg/dL (0.55-1.02); Calcium 8.2 mg/dL (8.5-10.1); Chloride 104 mmol/L (98-107); Estimated GFR 33.73 (mL/min/1.73m2); Glucose 101 mg/dL (74-106); Potassium 4.4 mmol/L (3.5-5.1); Sodium 133 mmol/L (136-145)
[2025-02-27] MEDS: Budesonide/Formoterol 80/4.5 10.2 GM 120 PUFF INH IH ×2 (08:25→19:33)
[2025-02-27] MEDS: Cholecalciferol (Vitamin D3) 1,000 UNIT TAB 2000 UNITS PO (08:53)
[2025-02-27] MEDS: Bisoprolol 5 MG TAB PO (08:53)
[2025-02-27] MEDS: Cyanocobalamin 500 MCG TAB 1000 MCG PO (08:53)
[2025-02-27] MEDS: Pantoprazole 40 MG VIAL IVP ×2 (08:53→20:22)
[2025-02-27] MEDS: Potassium Chloride Liquid 20 MEQ PKT PO (08:53)
[2025-02-27] MEDS: Magnesium Oxide 400 MG TAB PO ×2 (08:53→20:20)
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
--- NOTE | 2025-02-27 16:00 | PGE_ITS ---
Date of Service Date of service: 02/27/25 Time of Service: 16:00 Assessment and Plan Assessment and plan (1) ABLA (acute blood loss anemia): Status: Acute Assessment and plan: -Recurrent, again a/w DOAC use. -S/p reversal with PCC -initially hypovolemic shock, but now HD stable. -Hb up to 12 AM 02/27 s/p 3 units PRBCs -will f/u AM CBC and DC if remains stable -CT reassuring that no rapid active bleed. (2) GI bleeding: Status: Chronic Assessment and plan: -As above. -PPI bid -n case upper. -Consult surgery; rec outpatient referral for consideration of endoscopy (3) Atrial fibrillation: Status: Chronic Assessment and plan: -Rate control with bisoprolol. -Holding anticoagulation. -Despite risk with h/o CVA, would recommend holding anticoagulation until outpatient follow-up and/or potnetial outpatient endoscopies (4) CKD stage 3b, GFR 30-44 ml/min: Assessment and plan: at baseline, follow (5) Asthma: Assessment and plan: Not active, albuterol prn (6) Hypothyroidism: Status: Chronic Assessment and plan: recent TSH at goal, continue lT4 (7) Protein calorie malnutrition: Status: Chronic Assessment and plan: Continue shakes Consider vitamin K given as she could be deficient. (8) DVT prophylaxis: Status: Acute Assessment and plan: TEDS/SCDs given GI bleed. Subjective Subjective Interval history since last seen: Patient states that she is feeling better today. She understands that she will remain in the hospital 1 more night to recheck her hemoglobin levels in the morning, otherwise she has no other complaints or concerns at this time. Exam Narrative Exam Narrative: Well-appearing older female laying in bed in no acute distress, ANO x 4, heart regular rhythm, lungs good auscultation bilaterally, abdomen soft, nontender, nondistended Objective Last Vital Signs Temp 98.1 F 02/27/25 08:26 Pulse 70 02/27/25 08:26 Resp 18 02/27/25 08:26 BP 102/48 L 02/27/25 08:26 Pulse Ox 99 02/27/25 08:26 Laboratory Results - last 24 hr 02/26/25 02/26/25 02/26/25 16:00 17:20 18:25 WBC 8.95 RBC 1.53 L Hgb 4.0 L* Hct 13.4 L* MCV 88 MCH 26.1 L MCHC 29.9 L RDW 15.8 H Plt Count 347 MPV 10.5 Immature Gran % 0.3 Neutrophils % 76.4 Lymphocytes % 12.0 Monocytes % 10.4 Eosinophils % 0.8 Basophils % 0.1 Nucleated RBC % 0.0 Absolute Neutrophils 6.84 H Absolute Lymphocytes 1.07 L Absolute Monocytes 0.93 H Absolute Eosinophils 0.07 Absolute Basophils 0.01 PT 11.6 H INR 1.2 H APTT 23.1 D-Dimer 727 H VBG Lactate 2.2 H* Sodium 134 L Potassium 4.5 Chloride 102 Carbon Dioxide 27.1 Anion Gap 4.9 BUN 32 H Creatinine 1.5 H Est GFR (CKD-EPI 2020) 33.73 Glucose 114 H Calcium 8.7 Magnesium 1.8 Troponin I 14 14 Lipase 29 Urine Color Urine Clarity Urine pH Ur Specific [place] Urine Protein Urine Ketones Urine Blood Urine Nitrite Urine Bilirubin Urine Urobilinogen Ur Leukocyte Esterase Urine RBC Urine WBC Ur Epithelial Cells Urine Crystals Urine Bacteria Urine Casts Urine Mucus Ur Culture Indicated? Urine Glucose ABO/Rh A Positive Antibody Screen NEGATIVE Crossmatch See Detail 02/26/25 02/26/25 02/27/25 20:20 22:30 06:25 WBC 13.86 H RBC 4.18 Hgb 12.2 D Hct 36.3 MCV 87 MCH 29.2 MCHC 33.6 D RDW 14.8 H Plt Count 209 MPV 10.6 Immature Gran % Neutrophils % Lymphocytes % Monocytes % Eosinophils % Basophils % Nucleated RBC % Absolute Neutrophils Absolute Lymphocytes Absolute Monocytes Absolute Eosinophils Absolute Basophils PT INR APTT D-Dimer VBG Lactate Sodium 133 L Potassium 4.4 Chloride 104 Carbon Dioxide 20.0 L Anion Gap 9.0 BUN 36 H Creatinine 1.5 H Est GFR (CKD-EPI 2020) 33.73 Glucose 101 Calcium 8.2 L Magnesium Troponin I 17 Lipase Urine Color Yellow Urine Clarity Clear Urine pH 7.0 Ur Specific [place] 1.010 Urine Protein Negative Urine Ketones Negative Urine Blood Negative Urine Nitrite Negative Urine Bilirubin Negative Urine Urobilinogen 0.2 Ur Leukocyte Esterase Trace H Urine RBC Negative Urine WBC 3-5 Ur Epithelial Cells Rare Urine Crystals Negative Urine Bacteria Rare Urine Casts Negative Urine Mucus Negative Ur Culture Indicated? No Urine Glucose Negative ABO/Rh Antibody Screen Crossmatch Time Spent with Patient Time Spent with Patient: >50 minutes Time was spent: preparing to see the patient(eg.review tests), obtaining and/or reviewing separately otained hiistory, ordering medications,tests, procedures, referring, communicating with other health primary care nurse, indepentently interpreting results, counseling the patient and care coordination
[2025-02-28] VITALS (7 sets, daily range): BP systolic 82–106; BP diastolic 31–68; PULSE 68–115; RESP 14–22; TEMP 36.6–37.3; O2SAT 97–100
[2025-02-28] MEDS: Levothyroxine 88 MCG TAB PO (05:49)
[2025-02-28 07:46] LABS: HGB 9.9 g/dL (11.2-15.7); MCH 29.1 pg (27.0-33.0); MCHC 34.1 % (32.0-36.0); MCV 85 fL (80-95); MPV 10.3 fL (8.0-11.0); Platelet Count 254 10^3/uL (130-400); RDW 15.1 % (11.7-14.6); RDW-SD 46.4 fL; WBC 11.59 10^3/uL (4.4-10.8)
[2025-02-28] MEDS: Pantoprazole 40 MG VIAL IVP ×2 (08:14→20:55)
[2025-02-28] MEDS: Multivitamin TAB 1 TAB PO (08:15)
[2025-02-28] MEDS: Cholecalciferol (Vitamin D3) 1,000 UNIT TAB 2000 UNITS PO (08:15)
[2025-02-28] MEDS: Cyanocobalamin 500 MCG TAB 1000 MCG PO (08:15)
[2025-02-28] MEDS: Bisoprolol 5 MG TAB PO ×2 (08:15→20:56)
[2025-02-28] MEDS: Magnesium Oxide 400 MG TAB PO ×2 (08:15→20:56)
[2025-02-28] MEDS: Calcium Carbonate 1.25 GM TAB PO (08:15)
[2025-02-28] MEDS: Omega-3 Fatty Acids 1000 MG CAP PO (08:15)
[2025-02-28] MEDS: Normal Saline Flush 10 ML SYR (08:17)
[2025-02-28] MEDS: Budesonide/Formoterol 80/4.5 10.2 GM 120 PUFF INH IH ×2 (08:25→20:00)
--- NOTE | 2025-02-28 09:20 | PDOC.CMPRO ---
Date of service: 02/28/25 Time of Service: 09:20 Care Management Progress Note Progress Note Text Progress Note Text: Reta was sitting up in a chair about to have lunch when CM met with her. She stated that she was not feeling well and had some abdominal cramping. She also stated that she had a bad night and continues to have loose bloody stools. This morning Reta was again tachycardic and hypotensive with a SBP of 82/31. Reta's H&H on admission was 4.0/13.4. After receiving 3 units of blood, her Hgb improved to 12.2 yesterday, however this morning it was down to 9.9. Yesterday Reta had hoped to be discharged today based on her improvement, however today's findings will necessitate an additional period of observation and treatment. Discharge Potential Discharge Needs: PCP F/U Appt Anticipated Barriers to Discharge: None Identified Patient/Family Education Needs: Review discharge instructions, discuss Ask Me Three Transportation: Private vehicle Plan: Anticipate Reta will be discharged home, possibly with new home health services, when medically cleared. She will follow up with her community providers and plan of care and transport with family. CM will follow and continue to assess for discharge needs. Social Determinants of Health Screening Social Determinants of health last assessed in clinic: 02/28/25 Will the Patient Participate in the Screening?: Yes Do you worry about having a steady place to live?: no Problems where you live: no known problems In the past 12 months, have you had to go without electric, gas, oil or water in your home?: no 1. Within the past 12 months, we worried whether our food would run out before we got money to buy more.: Never true 2. Within the past 12 months, the food we bought just didn't last and we didn't have money to get more.: Never true Has lack of transportation kept you from medical appointments or from doing things needed for daily living?: no Has anyone in your life made you feel unsafe or unsupported?: no How hard is it for you to pay for the very basics like food, housing, medical care, and heating? Would you say it is:: Not hard at all Do you want help finding or keeping work or a job?: I do not need or want help If for any reason you need help with day-to-day activities such as bathing, preparing meals, shopping, managing finances, etc., do you get the help you need?: I don?t need any help How often do you feel lonely or isolated from those around you?: Never Do you speak a language other than Montserratian at home?: No Does the patient want assistance with any of the above?: No
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
--- NOTE | 2025-02-28 13:37 | CHAPLAIN ---
Reta was sitting up in a chair and was just pushing on the button to call her nurse to ask for help getting back into bed, so we did that together. She was pleasant and clearly tired.
--- NOTE | 2025-02-28 15:32 | W.PM.PROGNOT ---
Date of Service Date of service: 02/28/25 Time of Service: 15:32 Assessment and Plan Assessment and plan (1) ABLA (acute blood loss anemia): Status: Acute Assessment and plan: -Recurrent, again a/w DOAC use. -S/p reversal with PCC -initially hypovolemic shock, but now HD stable. -Hb up to 12 AM 02/27 s/p 3 units PRBCs -Hemoglobin remains stable at 9.9 on a.m. 02/28/2025 -will f/u AM CBC - Surgery seen patient, patient will attempt GoLytely today for possible colonoscopy tomorrow 03/01/2025 (2) GI bleeding: Status: Chronic Assessment and plan: -As above. -PPI bid -n case upper. -Consulted surgery, see above (3) Atrial fibrillation: Status: Chronic Assessment and plan: -Rate control with bisoprolol. -Holding anticoagulation. -Despite risk with h/o CVA, would recommend holding anticoagulation until outpatient follow-up and/or potnetial outpatient endoscopies (4) CKD stage 3b, GFR 30-44 ml/min: Assessment and plan: at baseline, follow (5) Asthma: Assessment and plan: Not active, albuterol prn (6) Hypothyroidism: Status: Chronic Assessment and plan: recent TSH at goal, continue lT4 (7) Protein calorie malnutrition: Status: Chronic Assessment and plan: Continue shakes Consider vitamin K given as she could be deficient. (8) DVT prophylaxis: Status: Acute Assessment and plan: TEDS/SCDs given GI bleed. Subjective Subjective Interval history since last seen: Patient states that she feels a little nauseous and weak today as compared to previous day. Exam Narrative Exam Narrative: Well-appearing older female laying in bed in no acute distress, ANO x 4, heart regular rhythm, lungs good auscultation bilaterally, abdomen soft, nontender, nondistended Objective Last Vital Signs Temp 98.2 F 02/28/25 11:37 Pulse 68 02/28/25 11:37 Resp 14 02/28/25 11:37 BP 82/31 L 02/28/25 11:37 Pulse Ox 99 02/28/25 11:37 Laboratory Results - last 24 hr 02/28/25 07:40 WBC 11.59 H RBC 3.40 L Hgb 9.9 L D Hct 29.0 L MCV 85 MCH 29.1 MCHC 34.1 RDW 15.1 H Plt Count 254 MPV 10.3 Time Spent with Patient Time Spent with Patient: >50 minutes Time was spent: preparing to see the patient(eg.review tests), obtaining and/or reviewing separately otained hiistory, ordering medications,tests, procedures, referring, communicating with other health healthcare insurance sales agent, indepentently interpreting results, counseling the patient and care coordination
[2025-02-28] MEDS: Polyethylene Glycol 3350 238 GM BTL PO (23:23)
[2025-03-01] VITALS (67 sets, daily range): BP systolic 90–142; BP diastolic 42–74; PULSE 67–90; RESP 13–19; TEMP 36.1–37.1; O2SAT 96–99; BMI 27.6
[2025-03-01] MEDS: Albuterol HFA 8 GM 60 PUFF INH IH (01:56)
[2025-03-01] MEDS: Benzonatate 100 MG CAP (05:00)
[2025-03-01] MEDS: Levothyroxine 88 MCG TAB PO (05:50)
[2025-03-01 06:34] LABS: HGB 13.7 g/dL (11.2-15.7); MCH 29.2 pg (27.0-33.0); MCHC 33.4 % (32.0-36.0); MCV 87 fL (80-95); MPV 9.9 fL (8.0-11.0); Platelet Count 151 10^3/uL (130-400); RBC 4.69 10^6/uL (3.93-5.22); RDW 15.7 % (11.7-14.6); RDW-SD 49.4 fL; WBC 4.82 10^3/uL (4.4-10.8)
[2025-03-01] MEDS: Budesonide/Formoterol 80/4.5 10.2 GM 120 PUFF INH IH ×2 (08:05→21:05)
--- NOTE | 2025-03-01 08:37 | PDOC.CMPRO ---
Date of service: 03/01/25 Time of Service: 08:37 Care Management Progress Note Progress Note Text Progress Note Text: Reta was lying in bed when CM met with her. She had been sleeping much of the morning, as she had been prepped for a colonoscopy last evening and was awake much of the night. While CM was meeting with Reta, Dr. Aguilar from surgery came to see her. He reviewed her course, asked questions and examined her. He stated that he would be taking her to the OR for a colonoscopy tomorrow. Shortly after he left, Anesthesia came to see Reta and informed her that she would be having the colonoscopy this afternoon and that Dr. Gavni would be doing the procedure. CM attempted to reach Barb, Reta's daughter but she was not available. Discharge Potential Discharge Needs: PCP F/U Appt and Surgical F/U Appt Anticipated Barriers to Discharge: Medical Status Patient/Family Education Needs: Review discharge instructions, discuss Ask Me Three Transportation: Private vehicle Plan: Anticipate Reta will be discharged home, possibly with new home health services, when medically cleared. She will follow up with her community providers and plan of care and transport with family. CM will follow and continue to assess for discharge needs. Social Determinants of Health Screening Social Determinants of health last assessed in clinic: 03/01/25 Will the Patient Participate in the Screening?: Yes Do you worry about having a steady place to live?: no Problems where you live: no known problems In the past 12 months, have you had to go without electric, gas, oil or water in your home?: no 1. Within the past 12 months, we worried whether our food would run out before we got money to buy more.: Never true 2. Within the past 12 months, the food we bought just didn't last and we didn't have money to get more.: Never true Has lack of transportation kept you from medical appointments or from doing things needed for daily living?: no Has anyone in your life made you feel unsafe or unsupported?: no How hard is it for you to pay for the very basics like food, housing, medical care, and heating? Would you say it is:: Not hard at all Do you want help finding or keeping work or a job?: I do not need or want help If for any reason you need help with day-to-day activities such as bathing, preparing meals, shopping, managing finances, etc., do you get the help you need?: I don?t need any help How often do you feel lonely or isolated from those around you?: Never Do you speak a language other than Kiswahili at home?: No Does the patient want assistance with any of the above?: No
[2025-03-01] MEDS: Pantoprazole 40 MG VIAL IVP ×2 (08:47→21:02)
--- NOTE | 2025-03-01 12:58 | W.ANESPRE ---
General Info Date of Service Date Performed: 03/01/25 Height: 4 ft 11 in Weight: 61.9 kg Body Mass Index (BMI): 27.6 Surgical Procedure: Operation Date: 03/01/25 13:35 Proposed Procedure Side Surgeon p Colonoscopy/Gastroscopy Michael Gavin MD Actual Procedure Side Surgeon p Colonoscopy/Gastroscopy Not Applicable Michael Gavin MD Pre-Op Diagnosis Post-Op Diagnosis Anemia, GI Bleed Meds Allergies and Home Medications Allergies Allergy/AdvReac Type Severity Reaction Status Date / Time sulfamethoxazole AdvReac Mild NAUSEA Verified 02/26/25 15:25 trimethoprim AdvReac Mild NAUSEA Verified 02/26/25 15:25 MELISSA Inhibitors AdvReac Unknown RENAL Verified 02/26/25 15:25 INSUFFIENCIENCY benazepril AdvReac Unknown unknown Verified 02/26/25 15:25 lovastatin AdvReac Unknown LIGHTHEADED Verified 02/26/25 15:25 NESS methyldopa AdvReac Unknown unknown Verified 02/26/25 15:25 simvastatin (From Zocor) AdvReac Unknown BODY ACHES Verified 02/26/25 15:25 W/ HIGHER DOSES Home Medication ?Medication ?Instructions ?Recorded multivitamin with minerals-folic 200 mcg PO DAILY ##150 06/01/16 acid 200 mcg chewable tablet (Women's Multivitamin Gummies) vitamin B12 1,000 mcg-folic acid 1,000 heidi sublingual DAILY 10/20/19 400 mcg sublingual lozenge ascorbic acid (vitamin C) 500 mg 500 mg PO DAILY 09/08/21 tablet omega-3 fatty acids 1,000 mg 1,000 mg PO DAILY 02/24/23 capsule (Super Sparks-3) calcium carbonate (Calcium 500) 500 mg PO DAILY #90 tabs 02/25/24 cholecalciferol (vitamin D3) 50 50 mcg PO DAILY 04/05/24 mcg (2,000 unit) capsule protein (Ensure High Protein oral 1 pwd PO BID #454 grams 04/05/24 powder) levothyroxine 88 mcg tablet 88 mcg PO DAILY #90 tabs 06/23/24 cetirizine 10 mg tablet 10 mg PO DAILY PRN allergy 07/07/24 symptoms #30 tabs tramadol 50 mg tablet 50 mg PO Q8H PRN 10/01/24 potassium chloride 20 mEq/15 mL 20 meq (15 mL) PO DAILY #450 mL 11/09/24 oral liquid pantoprazole 40 mg tablet,delayed 40 mg PO DAILY #30 tabs 02/06/25 release Ventolin HFA 90 mcg/actuation 2 puff inhalation QID PRN 02/09/25 aerosol inhaler (albuterol sulfate) shortness of breath or wheezing #18 grams apixaban 2.5 mg tablet 2.5 mg PO BID #180 tabs 02/09/25 bisoprolol fumarate 5 mg tablet 5 mg PO BID #180 tabs 02/09/25 fluticasone furoate 100 1 inh inhalation DAILY #60 ea 02/09/25 mcg-vilanterol 25 mcg/dose inhalation powder (Breo Ellipta) magnesium oxide 400 mg PO BID #60 caps 02/09/25 Current Visit Medications: Current Medications Generic Name Dose Route Start Last Admin Trade Name Freq PRN Reason Stop Dose Admin Albuterol Sulfate 2 puff 02/27/25 14:11 03/01/25 01:56 Albuterol Hfa 8 Gm 60 Puff Inh IH 2 puffs QID PRN PRN Administration shortness of breath or wheezing Benzonatate 100 mg 03/01/25 08:30 03/01/25 08:57 Benzonatate 100 Mg Cap PO Not Given TID DENISSE Bisoprolol Fumarate 5 mg 02/27/25 08:30 03/01/25 08:57 Bisoprolol 5 Mg Tab PO Not Given BID [facility] Budesonide/Formoterol Fumarate 2 puff 02/27/25 08:30 03/01/25 08:05 Budesonide/Formoterol 80/4.5 10.2 Gm 120 Puff Inh IH 2 puff BID [facility] Administration Calcium Carbonate 1.25 gm 02/27/25 08:30 03/01/25 08:58 Calcium Carbonate 1.25 Gm Tab PO Not Given DAILY [facility] Cetirizine HCl 5 mg 02/27/25 16:41 Cetirizine 10 Mg Tab PO DAILY PRN PRN allergy symptoms Cholecalciferol 2,000 units 02/27/25 08:30 03/01/25 08:58 Cholecalciferol (Vitamin D3) 1,000 Unit Tab PO Not Given DAILY [facility] Cyanocobalamin 1,000 mcg 02/27/25 08:30 03/01/25 08:58 Cyanocobalamin 500 Mcg Tab PO Not Given DAILY [facility] Fish Oil 1,000 mg 02/27/25 08:30 03/01/25 08:58 Sparks-3 Fatty Acids 1000 Mg Cap PO Not Given DAILY [facility] Levothyroxine Sodium 88 mcg 02/27/25 06:00 03/01/25 05:50 Levothyroxine 88 Mcg Tab PO 88 mcg 0600 DENISSE Administration Magnesium Oxide 400 mg 02/27/25 08:30 03/01/25 08:58 Magnesium Oxide 400 Mg Tab PO Not Given BID DENISSE Multivitamins 1 tab 02/27/25 08:30 03/01/25 08:58 Multivitamin Tab PO Not Given DAILY [facility] Ondansetron HCl 4 mg 02/27/25 09:30 Ondansetron 4 Mg/2 Ml Vial IVP Q6H PRN PRN Pantoprazole Sodium 40 mg 02/27/25 08:00 03/01/25 08:47 Pantoprazole 40 Mg Vial IVP 40 mg Q12H DENISSE Administration Polyethylene Glycol 238 gm 02/28/25 17:45 02/28/25 23:23 Polyethylene Glycol 3350 238 Gm Btl PO 238 gm DIRECTED DENISSE Administration Potassium Chloride 20 meq 02/27/25 08:30 03/01/25 08:58 Potassium Chloride Liquid 20 Meq Pkt PO Not Given DAILY [facility] Tramadol HCl 50 mg 02/27/25 16:43 Tramadol 50 Mg Tab PO Q12H PRN PRN PFSH Active Problems Active Problems: Problem Status Onset Code DVT prophylaxis Acute Z29.9 Symptomatic anemia Acute D64.9 ABLA (acute blood loss anemia) Acute D62 Chronic anticoagulation Acute Z79.01 Hypothyroidism Chronic E03.9 Atrial fibrillation Chronic I48.91 GI bleeding Chronic K92.2 Abnormal blood electrolyte level Resolved E87.8 Protein calorie malnutrition Chronic E46 Need for referral to dentistry for poor dentition Acute Z76.89 Sensorineural hearing loss, bilateral Acute 02/05/14 H90.3 Hyperlipidemia Chronic E78.5 Essential hypertension Chronic 06/20/13 I10 Medical History Medical History Closed fracture of left inferior pubic ramus (08/2024) Closed fracture of left acetabulum (08/2024) Post-nasal drainage Asthma chronic, clinical dx on maintenece inhalers CKD stage 3b, GFR 30-44 ml/min Hx TIA/stroke w/o resid (09/2024) expressive aphasia, resolved within 24 hours Closed pelvic fracture Erosion of teeth History of alcoholism Umbilical hernia Vitamin D deficiency, unspecified switched to PO vitamin B12 in February 2016 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 DAVID Cardiomyopathy unclear etiology/ EF as low as 25% in 2011-back up around 50% post a.fib. rate regulated and post infection/poss. A.Fib. related vs etoh Generalized osteoarthrosis hips and knees Closed fracture of left femur (08/22/17) left periprosthetic femur fracture post fall- treated [facility] [place] (open reduction/int.fixation) Anemia (08/19/01) Surgical History Surgical History Status post open reduction with internal fixation of fracture Total replacement of hip (07/08/11) LEFT Debridement, Soft Tissue (09/29/17) IRRIGATION AND DEBRIDEMENT LEFT HIP INCISION--PLACEMENT PF LANCE DRAIN ASPIRATION LEFT TKA Bilateral salpingectomy with oophorectomy Tobacco Smoking/Tobacco Use Status: Never Passive smoking exposure: Yes Second hand exposure: Yes Alcohol Alcohol Intake: former Year quit: 2023 Substance Use Substance use: Never Substance use type: does not use Vital Signs and Lab Results Vital Signs Most Recent Vital Signs in EMR: Most Recent Vital Signs Temp Pulse Resp BP Pulse Ox 36.8 C 90 16 142/74 H 99 03/01/25 11:10 03/01/25 11:10 03/01/25 11:10 03/01/25 11:10 03/01/25 11:10 Lab Results 03/01/25 05:57 02/27/25 06:25 Blood Type / Crossmatch: Antibody Screen NEGATIVE 02/26/25 Crossmatch See Detail 02/26/25 Complete Blood Count: WBC, (4.4-10.8) 4.82 10^3/uL Today, 05:57 RBC, (3.93-5.22) 4.69 10^6/uL Today, 05:57 Hgb, (11.2-15.7) 13.7 g/dL Δ Today, 05:57 Hct, (36.0-46.0) 41.0 % Today, 05:57 Plt Count, (130-400) 151 10^3/uL Today, 05:57 VBG Lactate, (<or=2.0) 2.2 mmol/L H* 02/26/25, 18:25 Complete Metabolic Panel: Sodium, (136-145) 133 mmol/L L 02/27/25, 06:25 Potassium, (3.5-5.1) 4.4 mmol/L 02/27/25, 06:25 Chloride, (98-107) 104 mmol/L 02/27/25, 06:25 Carbon Dioxide, (21.0-32.0) 20.0 mmol/L L 02/27/25, 06:25 BUN, (7-18) 36 mg/dL H 02/27/25, 06:25 Creatinine, (0.55-1.02) 1.5 mg/dL H 02/27/25, 06:25 Est GFR (CKD-EPI 2020), (mL/min/1.73m2) 33.73 02/27/25, 06:25 Magnesium, (1.8-2.4) 1.8 mg/dL 02/26/25, 16:00 Calcium, (8.5-10.1) 8.2 mg/dL L 02/27/25, 06:25 Albumin, (3.4-5.0) 2.8 g/dL L 02/09/25, 08:41 Glucose, (74-106) 101 mg/dL 02/27/25, 06:25 Liver Function Panel: ALT, (14-59) 8 U/L L 02/09/25, 08:41 AST, (15-37) 17 U/L 02/09/25, 08:41 Coagulation Panel: INR, (0.9-1.1) 1.2 H 02/26/25, 16:00 PT, (9.1-11.1) 11.6 sec H 02/26/25, 16:00 APTT, (20.6-30.2) 23.1 sec 02/26/25, 16:00 D-Dimer, (<500) 727 ng/mlFEU H 02/26/25, 16:00 Cardiac Panel: Troponin I, (<or=51) 17 ng/L 02/26/25 NT-Pro-B Natriuret Pep, (<300) 9568 pg/mL H 02/04/25 Pancreas Panel: Lipase, (<78) 29 U/L 02/26/25, 16:00 Thyroid Panel: TSH, (0.36-3.74) 2.07 uIU/mL 02/04/25, 17:15 Imaging and Studies Imaging and Studies Study information below may be from another EMR and interpreted by another provider. Please see original notes in EMR for more complete details. EKG Summary: 02/26/25: Exam: Resting ECG Reason for Exam: SOB Patient Location: E HR:88 bpm ECG Measurements Heart Rate 88 AXIS FL [id number] P [id number] QRSd 82 QRS 64 QT 360 T260 QTc 436 Conclusion Atrial fibrillation, rate 88 No other interval abnormalities T wave inversions/biphasic leads I, II, aVF, V5/V6, increased from priors No STEMI I have reviewed and I agree with the emergency room physician's ECG interpretation. Electronically signed by: <Electronically signed by Agnes Wills M.D. in [place]> 02/27/25 0804 Echocardiogram Summary: 08/22/20: Conclusion Normal left ventricular wall thickness and chamber size. Estimated ejection fraction is 55%. There are no segmental wall motion abnormality Right ventricle is borderline dilated. Normal right ventricular systolic function Both atria are moderately dilated The aortic valve is sclerotic and trileaflet without regurgitation or stenosis Mild mitral annular calcification with mild mitral regurgitation Structurally normal tricuspid valve, mild to moderate tricuspid regurgitation, estimated right ventricular systolic pressure 32 mmHg Structurally normal pulmonic valve with trace regurgitation Mildly dilated ascending aorta measuring 3.5 cm Rhythm throughout the test appeared to be atrial fibrillation with controlled rate Anesthesia Assessment and Plan Anesthesia History Personal History: No History of Anesthesia Complications Family History: No Family History of Anesthesia Complications Exercise Tolerance Exercise Tolerance: Metabolic Equivalents<4 Cardiac & Pulmonary Exam Cardiac Exam: Heart Murmur Present Pulmonary Exam: Clear Bilateral Breath Sounds Implantable Cardiac Device Does patient have a Pacemaker or an ICD?: No Airway Exam Known Difficult Airway: No Mallampati Class: 2 Mouth Opening: Normal (> 3cm) Thyromental Distance: Greater than 3 cm Neck Range of Motion: Full ROM Neck Circumference: Normal Teeth Condition: Generalized Poor Dentition ASA Classification ASA Score: ASA 3 Emergency Case?: No NPO Status NPO Status: NPO Clears >2 hours, Solids >8 hours Anesthesia Plan Resuscitation Status: DNR Fully Suspended During Perioperative Period Anesthesia Technique: General Anesthesia Airway Planned: Natural Airway Monitors Used: Standard Monitors
[2025-03-01] MEDS: Lactated Ringers 1,000 ML 30 ML IV (13:40)
--- NOTE | 2025-03-01 13:55 | BOWEL_PTH ---
PATIENT: Reta Hogan LOC: U#:[id number] AGE/SX: 85/F ROOM: 228 RE02/26/[address]: Jeffery Crane : 1940 BED: A DIS: 03/02/2025 SPEC #: [id number] RECD: 03/01/25 16:18 STATUS: SOUT REQ #: [id number] PIETRO: 03/01/25 13:[address]: Jeffery Crane DEPT: Surgical Specimen RECD BY: Lisa Siegel ENTERED: 03/01/25 16:21 SP TYPE: Bowel OTHR DR: JEREMI Trent Tamsin Wendy Frye, MD Philip Hamby Deborah A Harrigan Kaplin, Aviva W Robert G Kloos, DO Carl B Petri, MD Schroer, Peter Brian Smith, MD Tissues: 1 - ESOPHAGUS BIOPSY 2 - BIOPSY BOWEL 3 - BIOPSY BOWEL 4 - BIOPSY BOWEL Procedures: GROSS AND MICRO LEVEL 4 Comments: [id number]
--- NOTE | 2025-03-01 14:53 | W.ANESPOSTOP ---
Postoperative Evaluation Date, Time and Location Date Performed: 03/01/25 Time Performed: 14:53 Patient Location: PACU Vital Signs Most Recent Imported Vital Signs: Most Recent Vital Signs Temp Pulse Resp BP Pulse Ox 36.7 C 88 13 113/54 L 99 03/01/25 14:45 03/01/25 14:45 03/01/25 14:45 03/01/25 14:45 03/01/25 14:45 Pain Score Most Recent Pain Score: Most Recent Pain Score Pain Level [Generalized] 0 03/01/25 11:33 Pain Level 0 03/01/25 14:39 Assessment Mental Status: Awake (Alert & Oriented to Patient Baseline) Airway and Respiratory Function: Patent airway with normal (patient baseline) respiratory exam Cardiovascular Function: Hemodynamically Stable Hydration Status: Adequately Hydrated Nausea & Vomiting: No Nausea or Vomiting Pain: Pt. Denies Any Pain Peripheral Nerve Block: Patient did not receive a nerve block
--- NOTE | 2025-03-01 15:55 | W.PM.PROGNOT ---
Date of Service Date of service: 03/01/25 Time of Service: 15:55 Assessment and Plan Assessment and plan (1) ABLA (acute blood loss anemia): Status: Acute Assessment and plan: -Recurrent, again a/w DOAC use. -S/p reversal with PCC -initially hypovolemic shock, but now HD stable. -Hb up to 12 AM 02/27 s/p 3 units PRBCs -Hemoglobin remains stable at 9.9 on a.m. 02/28/2025 -will f/u AM CBC - Patient status post endoscopy with the following findings; benign esophageal stricture with hiatal hernia without signs of inflammation, stricture was biopsied, extensive diverticulosis noted with colonic polyps that were removed (2) GI bleeding: Status: Chronic Assessment and plan: -As above. -PPI bid -n case upper. -Consulted surgery, see above (3) Atrial fibrillation: Status: Chronic Assessment and plan: -Rate control with bisoprolol. -Holding anticoagulation. -Despite risk with h/o CVA, would recommend holding anticoagulation until outpatient follow-up and/or potnetial outpatient endoscopies (4) CKD stage 3b, GFR 30-44 ml/min: Assessment and plan: at baseline, follow (5) Asthma: Assessment and plan: Not active, albuterol prn (6) Hypothyroidism: Status: Chronic Assessment and plan: recent TSH at goal, continue lT4 (7) Protein calorie malnutrition: Status: Chronic Assessment and plan: Continue shakes Consider vitamin K given as she could be deficient. (8) DVT prophylaxis: Status: Acute Assessment and plan: TEDS/SCDs given GI bleed. Subjective Subjective Interval history since last seen: Patient was seen after her endoscopies, states that she is a little tired but is feeling better. Exam Narrative Exam Narrative: Well-appearing older female laying in bed in no acute distress, ANO x 4, heart regular rhythm, lungs good auscultation bilaterally, abdomen soft, nontender, nondistended Objective Last Vital Signs Temp 98.1 F 03/01/25 15:51 Pulse 86 03/01/25 15:51 Resp 16 03/01/25 15:51 BP 108/56 L 03/01/25 15:52 Pulse Ox 97 03/01/25 15:51 Laboratory Results - last 24 hr 03/01/25 05:57 WBC 4.82 RBC 4.69 Hgb 13.7 D Hct 41.0 MCV 87 MCH 29.2 MCHC 33.4 RDW 15.7 H Plt Count 151 MPV 9.9 Time Spent with Patient Time Spent with Patient: >50 minutes Time was spent: preparing to see the patient(eg.review tests), obtaining and/or reviewing separately otained hiistory, ordering medications,tests, procedures, referring, communicating with other health care transitions nurse, indepentently interpreting results, counseling the patient and care coordination
--- NOTE | 2025-03-01 17:47 | ENDO_ITS ---
Date of service: 03/01/25 Time of Service: 14:20 Endoscopy Report DATE OF PROCEDURE: 03/01/25 PRE-OP DIAGNOSIS: Gastrointestinal bleeding POST-OP DIAGNOSIS: other (Hiatal hernia, esophageal stricture; colon polyps, diverticulosis) PROCEDURE: EGD with esophageal biopsies, colonoscopy with polypectomy SURGEON: Michael Gavin ANESTHESIA TYPE: General:No Airway ESTIMATED BLOOD LOSS: 10 PATHOLOGY: other (Cold forceps biopsies of GE junction, 0.25 cm flat polyp at 75 cm, 0.25 cm flat polyp at 40 cm, 0.5 cm flat polyp at 35 cm) COMPLICATIONS: None DISPOSITION: floor INDICATIONS: Reta is an 85-year-old woman who is on therapeutic anticoagulation for atrial fibrillation and cerebrovascular accident, with anemia consistent with gastrointestinal hemorrhage. PREP: GoLYTELY PROCEDURE START TIME: 13:45 PROCEDURE END TIME: 14:20 COLONOSCOPY RETRACTION TIME: 7 FINDINGS: Benign-appearing esophageal stricture at 35 cm from the incisors, hiatal hernia; colon diverticulosis, colon polyps PROCEDURE DESCRIPTION: After the initiation of anesthesia, and with the assistance of a bite block, I advanced a standard gastroscope through the mouth past the hypopharynx and into the esophagus.? Under the direct vision of the scope, I advanced down the esophagus towards the stomach.? The upper, mid, and lower esophagus were all normal-appearing. There is no evidence of any esophageal varices. There is a little narrowing of the distal esophagus at the GE junction, but I am able to navigate across this without much difficulty. There does appear to be a sliding hiatal hernia. There is no evidence of any blood within the lumen of the st omach. There is no gastritis. I advanced down across the incisura angularis across the duodenum into the duodenal bulb. There was no blood in the duodenal bulb. I advanced down to the third portion of the duodenum. All of this was normal and healthy appearing. I brought the camera back up into the stomach proper and examined at 1 last time. Again, no evidence of any gastritis, and certainly no source of upper gastrointestinal blood loss was appreciated. The Z-line was regular, but given the narrowing, I did perform some cold forceps biopsies of the GE junction. I then emptied the stomach completely, and brought the camera out along the length of the esophagus 1 last time. Again, this was otherwise normal. We then rolled Reta into the left lateral decubitus position. I began by performing an external anorectal exam.? Perineum and skin were normal, as was the anal verge.? There was no evidence of external hemorrhoids.? Next, I performed a digital rectal exam.? Not next, I advanced a colonoscope into the rectal vault.? There was no bleeding here. I performed retroflexion.? This was normal, with no obvious pathologic hemorrhoids.? Using irrigation, I then advanced the colonoscope beyond the rectal folds and into the sigmoid colon before advancing towards the cecum.? The quality of the prep was excellent.? The scope was noted to be in the cecum by identification of the ileocecal valve and appendiceal orifice.? I then began withdrawing the colonoscope using repeated irrigation as necessary for full evaluation of the colonic mucosa. Around 75 cm from the anal verge was a 0.25 cm flat polyp. This was removed with cold forceps without any significant issues. Similarly, another 0.25 cm flat polyp was found at 40 cm from the anal verge. This was also removed with cold forceps. There is extensive left-sided and sigmoid diverticulosis. At 35 cm from the anal verge was 1 last polyp. This is about 0.5 cm, and also flat. This was removed in piecemeal with cold forceps. Once the scope was withdrawn to the level of the rectum, great care was taken to examine portions of the rectal folds.? Throughout the length of the colonoscopy, I did not see any signs of bleeding. I saw no signs of any vascular ectasias that could be a source of GI bleeding. There is extensive diverticulosis, which could certainly explain gastrointestinal blood loss, but nothing at all that looks like it was active or recently bleeding. Finally, the scope was withdrawn and the patient was brought to the same-day surgery recovery unit as the anesthetic wore off. ?The findings and instructions were shared with the patient prior to discharge.
[2025-03-01] MEDS: Magnesium Oxide 400 MG TAB PO (21:02)
[2025-03-01] MEDS: Bisoprolol 5 MG TAB PO (21:03)
[2025-03-01] MEDS: Benzonatate 100 MG CAP PO (21:03)
[2025-03-02 02:07] VITALS: BP 108/52; PULSE 85; TEMP 36.7
[2025-03-02] MEDS: Levothyroxine 88 MCG TAB PO (06:00)
[2025-03-02 07:28] VITALS: BP 95/65; PULSE 91; RESP 16; TEMP 36.2; O2SAT 97
[2025-03-02] MEDS: Budesonide/Formoterol 80/4.5 10.2 GM 120 PUFF INH IH (08:08)
[2025-03-02] MEDS: Pantoprazole 40 MG VIAL IVP (08:28)
[2025-03-02] MEDS: Cyanocobalamin 500 MCG TAB 1000 MCG PO (08:28)
[2025-03-02] MEDS: Magnesium Oxide 400 MG TAB PO (08:29)
[2025-03-02] MEDS: Calcium Carbonate 1.25 GM TAB PO (08:29)
[2025-03-02] MEDS: Cholecalciferol (Vitamin D3) 1,000 UNIT TAB 2000 UNITS PO (08:29)
[2025-03-02] MEDS: Benzonatate 100 MG CAP PO ×2 (08:29→14:22)
[2025-03-02] MEDS: Multivitamin TAB 1 TAB PO (08:29)
[2025-03-02 08:41] VITALS: BP 89/44; RESP 17; TEMP 36.9; O2SAT 100
[2025-03-02 08:44] VITALS: BP 95/48
--- NOTE | 2025-03-02 09:58 | PDOC.CMPRO ---
Date of service: 03/02/25 Time of Service: 09:58 Care Management Progress Note Discharge Potential Discharge Needs: PT Evaluation and PCP F/U Appt Anticipated Barriers to Discharge: Medical Status Patient/Family Education Needs: Review discharge instructions, discuss Ask Me Three Transportation: Private vehicle Plan: Anticipate Reta will be discharged home, possibly with new home health RN, COPYING MACHINE MECHANIC, and PT, OT - pending PT recommendations, when medically cleared. She will follow up with her community providers and plan of care and transport with family. CM will follow and continue to assess for discharge needs. Social Determinants of Health Screening Social Determinants of health last assessed in clinic: 03/02/25 Will the Patient Participate in the Screening?: Yes Do you worry about having a steady place to live?: no Problems where you live: no known problems In the past 12 months, have you had to go without electric, gas, oil or water in your home?: no 1. Within the past 12 months, we worried whether our food would run out before we got money to buy more.: Never true 2. Within the past 12 months, the food we bought just didn't last and we didn't have money to get more.: Never true Has lack of transportation kept you from medical appointments or from doing things needed for daily living?: no Has anyone in your life made you feel unsafe or unsupported?: no How hard is it for you to pay for the very basics like food, housing, medical care, and heating? Would you say it is:: Not hard at all Do you want help finding or keeping work or a job?: I do not need or want help If for any reason you need help with day-to-day activities such as bathing, preparing meals, shopping, managing finances, etc., do you get the help you need?: I don?t need any help How often do you feel lonely or isolated from those around you?: Never Do you speak a language other than Bulgarian at home?: No Does the patient want assistance with any of the above?: No Anticipated HH Services Anticipated HH Services at Discharge [facility].
--- NOTE | 2025-03-02 10:10 | TELEFU_ITS ---
Date of service: 03/02/25 Time of Service: 10:10 Nutrition Note NOTE: Reta admitted from [facility] housing in [place] to treat anemia d/t chronic GI bleed which has stabilized. PMH significant for CKD, protein lamont manutrition. Reta on day 4 of clear liquids. kitchen offering boost breeze and high protein jello for additional protein while on clears but intake even combined with these has not been adequat to meet >75% of her nutrition needs if she consumes 100% at meals. Wt trend with actual increase over admission however bed scale inaccuracies can occur. Albumin lab last month low however total protein lab wnl same date. Reta has poor dentition and states they try and serve purees where she lives and she hates these - has been taking small pills po without concern. Was given the ok to advance diet for lunch as pt will most likely discharge back to [facility] living later today. will get minced and moist lunch today and will follow up this afternoon prior to discharge to check on toleration. Suggest continued ONS support post discharge Time Spent in Nutritional Counseling and Treatment: 10 min
--- NOTE | 2025-03-02 10:36 | CMDISCH_ITS ---
Date of service: 03/02/25 Time of Service: 10:36 LACE Index Scoring Tool Questions: Length of Stay (in days): 4 - 6 Was the patient admitted via the E.D.?: Yes E.D. Visits: 2 Answers: Total Score: 9 Risk of Readmission: Low Risk Care Management Discharge Plan Reason for Hospitalization: Anemia, GI bleed Discharge Plan: Reta will be discharged home, with new home health PT, OT, RN, and BIOPROCESSING MANUFACTURING TECHNICIAN, today. She will follow up with her community providers and plan of care and transport with her daughter around 18:00. Patient/Family Education Needs: Review of discharge instructions, activity, limitations and plan of care. Discuss Ask Me Three. Services Needed at Discharge: Home Health Care Services SDOH Health Related Social Needs: Health related social needs house/econ circumstance [place]/isolated Health related social needs details Has meals on wheel s to assist with meals
--- NOTE | 2025-03-02 13:10 | PDOC.HHF2F ---
Home Health Referral Home Health Orders Clinical synopsis of why skilled professionals are needed: a-fib, hypothyroidism, GI bleed Registered Nurse: Check all that apply Instruct on new or changed medication(s)/assess compliance: Ordered Physical Therapist: Check all that apply Increase strength & endurance for safe mobility at home: Ordered To design/establish home maintenance program: Ordered Fall reduction therapy program for patient with history of frequent falls: Ordered Home safety evaluation and teaching/gait training including stair management (if applicable): Ordered Encounter Date and Reason: I certify that a FTF encounter for this patient was performed on March 02, 2025 and that such encounter was related to the primary reason the patient requires home health services. The encounter was conducted in the following manner: By me as the certifying physician, INFORMATION SYSTEMS CONSULTANT, PA or By an inpatient physician, INFORMATION SYSTEMS CONSULTANT or PA during an inpatient stay who communicated findings to me, Certification And Authentication I certify that I composed the above information based on my clinical judgment relating to this patient's medical condition and, if applicable, clinical findings communicated to me by the NPP or inpatient physician who performed the FTF encounter. Name of Provider that will be monitoring home health services: Chitra Martinez
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
[2025-04-23 14:56] LABS: HCT 13.4 % (36.0-46.0)
== END 2025-03-02 16:49 | disposition home health service (06) | DRG 377 ==
LOC: ER 15:58 → MS 22:39
PROVIDERS: Surgery; Admitting Provider Family Medicine; Emergency Provider Emergency Medicine; PCP Family Medicine; Responsible Provider Family Medicine; Visit Provider Family Medicine
PROC: 0DBG8ZX Excision of Left Large Intestine, Via Natural or Artificial Opening Endoscopic, Diagnostic (ICD-10-PCS; CPT 45380; principal; 2025-03-01 13:30)
DX: D62 Acute posthemorrhagic anemia (principal); I48.19 Other persistent atrial fibrillation; N18.32 Chronic kidney disease, stage 3b; J45.909 Unspecified asthma, uncomplicated; E03.9 Hypothyroidism, unspecified; E44.1 Mild protein-calorie malnutrition; Z68.27 Body mass index [BMI] 27.0-27.9, adult; K57.31 Diverticulosis of large intestine without perforation or abscess with bleeding; R57.1 Hypovolemic shock; E87.1 Hypo-osmolality and hyponatremia; I42.9 Cardiomyopathy, unspecified; Z66 Do not resuscitate; R07.89 Other chest pain; Z79.01 Long term (current) use of anticoagulants; R53.1 Weakness; R05.9 Cough, unspecified; H90.3 Sensorineural hearing loss, bilateral; I12.9 Hypertensive chronic kidney disease with stage 1 through stage 4 chronic kidney disease, or unspecified chronic kidney disease; Z86.73 Personal history of transient ischemic attack (TIA), and cerebral infarction without residual deficits; F10.21 Alcohol dependence, in remission; E55.9 Vitamin D deficiency, unspecified; Z96.642 Presence of left artificial hip joint; T45.515A Adverse effect of anticoagulants, initial encounter; K22.2 Esophageal obstruction; K44.9 Diaphragmatic hernia without obstruction or gangrene; D12.4 Benign neoplasm of descending colon; D12.5 Benign neoplasm of sigmoid colon
CPT/HCPCS: 45380; 43239; 00123; 36415; 36430; 80048; 83690; 85027; 86850; 86900; 86901; 86920; 87040; 88305; 93005; 93308; 94640; 96365; 96366; 96367; 96375; 99222; 99285; 71045; 74174; 81003; 81015; 83605; 83735; 84484; 85025; 85379; 85610; 85730; 93010; 94664; 99233; 99239; J0692; J2003; J2371; J2470; J2704; J3370; J3490; J7168; P9016

== ENCOUNTER 2025-03-14 21:31 | Outpatient (REF) | payer MEDICARE, MEDICAID, SELFPAY ==
[2025-03-14 14:41] LABS: HCT 27.4 % (36.0-46.0); HGB 8.8 g/dL (11.2-15.7); MCHC 32.1 % (32.0-36.0); MCV 90 fL (80-95); MPV 10.7 fL (8.0-11.0); Platelet Count 194 10^3/uL (130-400); RBC 3.03 10^6/uL (3.93-5.22); RDW 16.9 % (11.7-14.6); RDW-SD 54.8 fL; WBC 4.83 10^3/uL (4.4-10.8)
== END 2025-03-14 21:32 | disposition home or self-care (01) ==
LOC: LBN 21:31
PROVIDERS: PCP Family Medicine; Visit Provider Family Medicine
DX: K92.1 Melena (principal)
CPT/HCPCS: 85027

== ENCOUNTER 2025-03-27 15:39 | Outpatient (REF) | payer MEDICARE, MEDICAID, SELFPAY ==
[2025-03-27 16:43] LABS: Abs Immature Grans 0.01 10^3/uL (0.0-0.06); HCT 28.3 % (36.0-46.0); HGB 9.1 g/dL (11.2-15.7); Immature Grans % 0.3 %; MCH 28.5 pg (27.0-33.0); MCHC 32.2 % (32.0-36.0); MCV 89 fL (80-95); MPV 11.5 fL (8.0-11.0); Platelet Count 230 10^3/uL (130-400); RBC 3.19 10^6/uL (3.93-5.22); RDW 16.3 % (11.7-14.6); RDW-SD 53.2 fL; WBC 3.61 10^3/uL (4.4-10.8)
== END 2025-03-27 15:40 | disposition home or self-care (01) ==
LOC: LBN 15:39
PROVIDERS: PCP Family Medicine; Visit Provider Family Medicine
DX: D64.9 Anemia, unspecified (principal); D62 Acute posthemorrhagic anemia; I50.22 Chronic systolic (congestive) heart failure; J45.909 Unspecified asthma, uncomplicated
CPT/HCPCS: 85025

== ENCOUNTER 2025-04-25 02:20 | Outpatient (CLI) | payer MEDICARE, MEDICAID, SELFPAY ==
[2025-04-25 12:46] LABS: HCT 28.9 % (36.0-46.0); HGB 9.3 g/dL (11.2-15.7)
[2025-04-25 13:17] LABS: ALT 12 U/L (14-59); AST 21 U/L (15-37); Albumin 2.9 g/dL (3.4-5.0); Alkaline Phosphatase 85 U/L (46-116); Anion Gap 4.7 mmol/L (3-11); BUN 13 mg/dL (7-18); Bilirubin, Total 0.4 mg/dL (0.2-1.0); CO2 28.3 mmol/L (21.0-32.0); Calcium 8.9 mg/dL (8.5-10.1); Chloride 98 mmol/L (98-107); Estimated GFR 48.94 (mL/min/1.73m2); Glucose 101 mg/dL (74-106); Potassium 4.3 mmol/L (3.5-5.1); Sodium 131 mmol/L (136-145); Total Protein 6.8 g/dL (6.4-8.2)
== END 2025-04-25 02:21 | disposition home or self-care (01) ==
LOC: LOS 02:20
PROVIDERS: PCP Family Medicine; Visit Provider Family Medicine
DX: D64.9 Anemia, unspecified (principal); Z00.00 Encounter for general adult medical examination without abnormal findings; E44.1 Mild protein-calorie malnutrition
CPT/HCPCS: 36415; 80053; 85014; 85018

== ENCOUNTER 2025-08-16 19:21 | Emergency (ER) | payer MEDICARE, MEDICAID, SELFPAY ==
[2025-08-16] VITALS (29 sets, daily range): BP systolic 135–209; BP diastolic 55–106; PULSE 77–133; RESP 14–25; TEMP 36–36.3; O2SAT 95–99
[2025-08-16 19:35] LABS: Abs Immature Grans 0.02 10^3/uL (0.0-0.06); HCT 33.9 % (36.0-46.0); HGB 10.8 g/dL (11.2-15.7); Immature Grans % 0.4 %; MCH 29.0 pg (27.0-33.0); MCHC 31.9 % (32.0-36.0); MCV 91 fL (80-95); MPV 10.5 fL (8.0-11.0); Platelet Count 202 10^3/uL (130-400); RBC 3.72 10^6/uL (3.93-5.22); RDW 14.8 % (11.7-14.6); RDW-SD 49.1 fL; WBC 5.55 10^3/uL (4.4-10.8)
--- NOTE | 2025-08-16 19:40 | DI.CT_ITS ---
Exam(s) CT BRAIN NECK CTA EXAM: CT BRAIN NECK CTA CLINICAL HISTORY: stroke. TECHNIQUE: Imaging Protocol: Axial CT angiography was performed with multi- slice acquisition and multi-planar and MIP reconstructions. CONTRAST MATERIAL: Intravenous: Omnipaque 350 Contrast volume:100 ml COMPARISON: CT CT BRAIN NECK CTA from 10/01/2024 FINDINGS: CT Head W/O and W contrast: Ventricles and Extra axial spaces: Normal in size and morphology for the patient's age. Acute hemorrhage noted in the left lateral ventricle and 3rd ventricle. Cerebral parenchyma: Acute intraparenchymal hemorrhage is noted in the region of the left thalamus extending into the miles radiata measuring approximately 4 x 1.5 x 1.7 cm. Mild surrounding edema. Extension into the left lateral ventricle and 3rd ventricle. No evidence of acute infarct or suspicious mass. Atrophy and microvascular changes of the white matter are stable. Small left- sided meningioma is again noted along the posterior falx. Midline shift: None. Brainstem/Cerebellum: No acute findings.. Calvarium: Normal. Visualized Paranasal sinuses/Mastoids: Clear. Soft Tissues: Unremarkable. Enhancement: Normal. Venous sinuses are patent. CTA Brain W: Internal Carotid Arteries: Mural calcification. Right: No aneurysm, occlusion or significant stenosis. Left: No aneurysm, occlusion or significant stenosis. Middle Cerebral Arteries: Right: No aneurysm, occlusion or significant stenosis. Left: No aneurysm, occlusion or significant stenosis. Anterior Cerebral Arteries: Right: No aneurysm, occlusion or significant stenosis. Left: No aneurysm, occlusion or significant stenosis. Posterior cerebral Arteries: Right: No aneurysm, occlusion or significant stenosis. Left: No aneurysm, occlusion or significant stenosis. Vertebral Arteries: Mild distal calcifications. Right: No aneurysm, occlusion or significant stenosis. Left: No aneurysm, occlusion or significant stenosis. Basilar Artery: No aneurysm, occlusion or significant stenosis. CTA Neck W: Visualized aorta: Unremarkable. Visualized pulmonary arteries: Unremarkable. Subclavian arteries: Unremarkable. Common Carotid: Calcified plaque at the bulbs. Right: No dissection, occlusion or significant stenosis. Left: No dissection, occlusion or significant stenosis. External Carotid: Right: No dissection, occlusion or significant stenosis. Left: No dissection, occlusion or significant stenosis. Internal Carotid: Right: No dissection, occlusion or significant stenosis. Left: No dissection, occlusion or significant stenosis. Vertebral Artery: Right: No dissection, occlusion or significant stenosis. Left: No dissection, occlusion or significant stenosis. Lung Apices: No acute findings. Bones: Chance degenerative changes. No acute abnormality. Soft Tissues: Normal. IMPRESSION: 1. CTA brain: Normal CTA examination of the [place]. 2. Head CT: Acute parenchymal hemorrhage in the region of the left thalamus and miles radiata with interventricular extension. Mild surrounding edema but no midline shift. 3. CTA neck: No evidence of occlusion, significant stenosis or dissection. The preliminary [facility] report was reviewed. RADIATION DOSE DELIVERED: 1,838.56mGy.cm Total DLP DATA REPOSITORY: All CT scans at this facility are submitted to the National Radiology Data Registry (NRDR) Dose Index Registry (DIR) with the [employer] (ACR). RADIATION OPTIMIZATION: All CT scans at this facility use at least one of these dose optimization techniques: automated exposure control; mA and/or kV adjustment per patient size (includes targeted exams where dose is matched to clinical indication); or iterative reconstruction.
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
--- NOTE | 2025-08-16 19:45 | RT.EKG_ITS ---
APPROVED REPORT Exam: Resting ECG Reason for Exam: AMS Patient Location: E HR:84 bpm ECG Measurements Heart Rate 84 AXIS [place] [id number] P [id number] QRSd 99 QRS 91 QT 402 T 2 QTc 477 Conclusion Atrial fibrillation, rate 84 No interval abnormalities PVCs No STEMI T wave inversion lead III
[2025-08-16 19:46] LABS: INR 1.3 (0.9-1.1); Prothrombin Time 12.6 sec (9.1-11.1)
[2025-08-16] MEDS: Normal Saline - Diluent 50 ML VIAL IJ (19:46)
[2025-08-16] MEDS: Normal Saline Flush 10 ML SYR IVP (19:46)
[2025-08-16] MEDS: Omnipaque 350 MG/ML 100 ML BTL IJ (19:47)
[2025-08-16] MEDS: niCARdipine 25 MG in Normal Saline 240 ML 50 MG IV (19:48)
[2025-08-16 19:54] LABS: Troponin I 9 ng/L (<35)
[2025-08-16 19:56] LABS: Magnesium 1.2 mg/dL (1.6-2.6)
[2025-08-16 20:00] LABS: ALT < 7 U/L (10-49); AST 21 U/L (<34); Albumin 3.8 g/dL (3.2-5.0); Alkaline Phosphatase 106 U/L (46-116); Anion Gap 2.8 mmol/L (3-11); BUN 11 mg/dL (9-23); Bilirubin, Total 0.60 mg/dL (0.2-1.2); CO2 28.1 mmol/L (20.0-31.0); Calcium 8.6 mg/dL (8.3-10.6); Chloride 98 mmol/L (98-107); Glucose 98 mg/dL (74-106); Potassium 3.5 mmol/L (3.5-5.1); Sodium 129 mmol/L (136-145); Total Protein 7.6 g/dL (5.7-8.2)
--- NOTE | 2025-08-16 20:16 | DI.VRAD_ITS ---
Addendum created by Jeffery Ibarra MD on 08/16/2025 8:15:52 PM EST: Addendum: THIS REPORT CONTAINS FINDINGS THAT MAY BE CRITICAL TO PATIENT CARE. The findings were verbally communicated via telephone conference with Maria Fernanda Guerin at 8:12 p.m. EST on 08/16/2025. The findings were acknowledged and understood. Initial report created on 08/16/2025 8:10:03 PM EST: PROCEDURE INFORMATION: Exam: CTA Head Without And With Contrast, Arteriography Exam date and time: 08/16/2025 7:27 PM Age: 85 years old Clinical indication: Stroke-like symptoms; Altered mental status/memory loss TECHNIQUE: Imaging protocol: Computed tomographic angiography of the head without and with contrast. Exam focused on the arteries. 3D rendering (Not supervised by radiologist): MIP and/or 3D reconstructed images were created by the technologist. Contrast material: OMNIPAQUE 350; Contrast volume: 70 ml; Contrast route: INTRAVENOUS (IV); Other technique: STROKE PROTOCOL was implemented. COMPARISON: CT BRAIN NECK CTA 10/01/2024 7:50 AM FINDINGS: ANTERIOR CIRCULATION: Right internal carotid artery: Right ICA petrous segment is unremarkable. Cavernous and supraclinoid segments demonstrate moderate calcific plaque without significant stenosis. Right middle cerebral artery: Unremarkable. No occlusion or significant stenosis. No aneurysm. Right anterior cerebral artery: Unremarkable. No occlusion or significant stenosis. No aneurysm. The anterior communicating artery is unremarkable. Left internal carotid artery: Left ICA petrous segment is unremarkable. Cavernous and supraclinoid segments demonstrate moderate calcific plaque without significant stenosis. Left middle cerebral artery: Unremarkable. No occlusion or significant stenosis. No aneurysm. Left anterior cerebral artery: Unremarkable. No occlusion or significant stenosis. No aneurysm. POSTERIOR CIRCULATION: Right vertebral artery: Mild V4 calcific plaque. No occlusion or significant stenosis. No aneurysm. Left vertebral artery: Mild V4 calcific plaque. No occlusion or significant stenosis. No aneurysm. Basilar artery: Unremarkable. No occlusion or significant stenosis. No aneurysm. Right posterior cerebral artery: Unremarkable. No occlusion or significant stenosis. No aneurysm. Left posterior cerebral artery: Unremarkable. No occlusion or significant stenosis. No aneurysm. Veins: The dural venous sinuses and major cortical veins enhance appropriately without evidence of thrombosis. HEAD: Brain: Moderate generalized cerebral/cerebellar atrophy. Mild bilateral periventricular white matter hypodensities which are nonspecific but most commonly associated with chronic microvascular ischemia in this age group. The IACs are grossly normal. Mild prominence of the peripheral CSF spaces, related to generalized atrophy. Acute parenchymal hemorrhage centered in the left thalamus and cerebral peduncle, and tracking up into the left miles radiata distribution, measuring 4 x 1.5 x 1.7 cm, estimated volume 5 mL. Mild surrounding parenchymal edema with only slight local mass effect. 8 mm rounded focus of acute hemorrhage in the left paramedian distribution near the cuneus, favor subarachnoid versus less likely small subdural hemorrhage. 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 No intracranial mass lesions. No midline shift or herniation. No enhancing brain lesions or vascular malformations are identified. Cerebral ventricles: Mild compensatory ventriculomegaly secondary to central atrophy. There is intraventricular hemorrhage penetration at the left lateral ventricular body, tracking into the frontal horn, trigone, and anterior 3rd ventricle. No evidence of ventricular obstruction. Pituitary gland and sella: The sella is grossly normal. Bones: No acute osseous findings. Orbital cavities: No acute intraorbital findings. Prior bilateral ocular cataract surgery. Paranasal sinuses: Visualized paranasal sinuses are clear. Mastoid air cells: Visualized mastoid air cells are clear. Soft tissues: No acute soft tissue findings. IMPRESSION: 1. Acute parenchymal bleed centered in the left thalamus and cerebral peduncle and tracking up into the left miles radiata distribution, estimated volume 5 mL with mild surrounding parenchymal edema but only mild local mass effect. 2. There is intraventricular penetration of hemorrhage tracking into the left lateral ventricle and anterior 3rd ventricle, and additional small volume subarachnoid or subdural hemorrhage near the left cuneus. 3. No underlying vascular malformation or enhancing brain lesion. The pattern/distribution is most suggestive of hypertensive bleed. 4. No acute vascular abnormalities. No evidence of large vessel occlusion or significant stenosis. 5. Atrophy and microvascular changes consistent with advanced age. 6. These findings initiated a critical results reporting process. An addendum will be issued at the time of clinician notification. ASSESSMENT: ASPECTS ([place] Stroke Program Early CT Score) is 10. PROCEDURE INFORMATION: Exam: CTA Neck Without And With Contrast Exam date and time: 08/16/2025 7:27 PM Age: 85 years old Clinical indication: Stroke-like symptoms; Altered mental status/memory loss TECHNIQUE: Imaging protocol: Computed tomographic angiography of the neck without and with contrast. Exam focused on the cervical segments of the vasculature. 3D rendering (Not supervised by radiologist): MIP and/or 3D reconstructed images were created by the technologist. Contrast material: OMNIPAQUE 350; Contrast volume: 70 ml; Contrast route: INTRAVENOUS (IV); COMPARISON: CT BRAIN NECK CTA 10/01/2024 7:50 AM FINDINGS: Right common carotid artery: Mild tortuosity. Mild-moderate distal segment calcific plaque. No stenosis. No dissection or occlusion. Right internal carotid artery: Moderate calcific plaque in the right carotid bulb and mild calcific plaque in the proximal most ICA. Moderate mid segment tortuosity and kinking. No significant stenosis. No dissection or occlusion. Right external carotid artery: Moderate ostial calcific plaque producing moderate 50% ostial stenosis. No dissection or occlusion. Left common carotid artery: Normal. No stenosis. No dissection or occlusion. Left internal carotid artery: Moderate calcific plaque in the left carotid bulb and proximal most ICA. Moderate mid and distal segment tortuosity. No significant stenosis. No dissection or occlusion. Left external carotid artery: Moderate ostial calcific plaque without significant stenosis. No dissection or occlusion. Right vertebral artery: Moderate V1 tortuosity. No stenosis. No dissection or occlusion. Left vertebral artery: Moderate V1 segment tortuosity. No stenosis. No dissection or occlusion. Brachiocephalic artery: The brachiocephalic artery demonstrates mild calcific plaque without stenosis. Right subclavian artery: The right subclavian artery demonstrates moderate calcific plaque without stenosis. Left subclavian artery: The left subclavian artery demonstrates mild calcific plaque without stenosis. Aorta: The visualized aortic arch demonstrates mild ectasia and calcific plaque without evidence of dissection or gross aneurysm. Thyroid: The thyroid gland is unremarkable. Soft tissues: No significant soft tissue swelling or hematoma. Bones/joints: No acute osseous abnormalities are identified. Osteopenia. Severe multilevel cervical disc osteoarthritic changes with multilevel mild osteoarthritic listhesis. Lungs: Mild interlobular septal thickening in the partially visualized upper lung bates, possibly an element of interstitial pulmonary edema, versus chronic fibrosis. IMPRESSION: 1. No acute vascular abnormalities. No evidence of arterial occlusion or significant stenosis. 2. Question mild interstitial pulmonary edema versus chronic fibrosis. REFERENCES: NASCET CRITERIA. The degree of stenosis in the cervical segment of the internal carotid artery is based on NASCET criteria. Normal is no stenosis. Mild is less than 50% stenosis. Moderate is 50-69% stenosis. Severe is 70% to 99% stenosis. Total occlusion is no detectable patent lumen. Dictated and Authenticated by: Jeffery Ibarra MD. Orderin [facility] Hernesto Irving MD
[2025-08-16] MEDS: MAGNESIUM SULFATE 2 GM/50 ML BAG IV_INF (20:19)
== END 2025-08-16 21:42 | disposition short-term general hospital (02) ==
PROVIDERS: Emergency Provider Emergency Medicine; PCP Family Medicine
DX: G81.91 Hemiplegia, unspecified affecting right dominant side (principal); I61.9 Nontraumatic intracerebral hemorrhage, unspecified; R47.01 Aphasia; I10 Essential (primary) hypertension; Z59.89 Other problems related to housing and economic circumstances; Z60.8 Other problems related to social environment
CPT/HCPCS: 36415; 36416; 70496; 70498; 80053; 82962; 93005; 96365; 96367; 99291; 83735; 84484; 85025; 85610; 93010; J2404; J3475; J3490

== ENCOUNTER 2025-08-25 17:01 | Outpatient (REF) | payer MEDICARE, MEDICAID, SELFPAY ==
[2025-08-25 18:15] LABS: Abs Immature Grans 0.03 10^3/uL (0.0-0.06); HCT 34.9 % (36.0-46.0); HGB 11.2 g/dL (11.2-15.7); Immature Grans % 0.5 %; MCH 29.2 pg (27.0-33.0); MCHC 32.1 % (32.0-36.0); MCV 91 fL (80-95); MPV 10.7 fL (8.0-11.0); Platelet Count 263 10^3/uL (130-400); RBC 3.83 10^6/uL (3.93-5.22); RDW 15.1 % (11.7-14.6); RDW-SD 50.4 fL; WBC 6.38 10^3/uL (4.4-10.8)
[2025-08-25 18:29] LABS: ALT 10 U/L (10-49); AST 26 U/L (<34); Albumin 3.3 g/dL (3.2-5.0); Alkaline Phosphatase 86 U/L (46-116); Anion Gap 8.9 mmol/L (3-11); BUN 24 mg/dL (9-23); Bilirubin, Total 0.70 mg/dL (0.2-1.2); CO2 31.4 mmol/L (20.0-31.0); Calcium 9.0 mg/dL (8.3-10.6); Chloride 98 mmol/L (98-107); Glucose 111 mg/dL (74-106); Potassium 3.6 mmol/L (3.5-5.1); Sodium 138 mmol/L (136-145); Total Protein 6.6 g/dL (5.7-8.2)
== END 2025-08-25 17:02 | disposition home or self-care (01) ==
LOC: LBN 17:01
PROVIDERS: PCP Family Medicine; Visit Provider Nurse Practitioner Adult Health
DX: R52 Pain, unspecified (principal)
CPT/HCPCS: 80053; 85025

== ENCOUNTER → 2025-08-31 13:30 | Outpatient (BNVA) | payer MEDICARE, MEDICAID, SELFPAY | PROVIDERS: PCP Family Medicine; Referring Provider Family Medicine; Visit Provider Internal Medicine Cardiovascular Disease | DX: I48.19 Other persistent atrial fibrillation (principal); I35.0 Nonrheumatic aortic (valve) stenosis; I61.9 Nontraumatic intracerebral hemorrhage, unspecified | CPT/HCPCS: 99214 ==

== ENCOUNTER 2025-09-06 11:52 | Emergency (ER) | payer MEDICARE, MEDICAID, SELFPAY ==
[2025-09-06] VITALS (26 sets, daily range): BP systolic 138–172; BP diastolic 45–87; PULSE 66–116; RESP 8–27; TEMP 37.2; O2SAT 96–98
--- NOTE | 2025-09-06 11:45 | DI.RAD_ITS ---
Exam(s) XR CHEST 1V IN DI DEPT EXAM: XR CHEST 1V IN DI DEPT CLINICAL HISTORY: Altered TECHNIQUE: 2D digital imaging was performed of the chest. One image was obtained. An AP view was obtained. COMPARISON: CR,XR XR CHEST 2V PA LATERAL from 02/04/2025 FINDINGS: MEDIASTINUM: Normal. HEART: Cardiomegaly. PULMONARY VASCULATURE: There is prominence of the vessels in the hilum which may reflect pulmonary artery hypertension. LUNGS: Clear. PLEURAL SPACE: No pleural effusion or pneumothorax. BONE:Within normal limits for the patient's age. OTHER FINDINGS:Atherosclerotic calcification is present. IMPRESSION: No acute pulmonary findings. DATA REPOSITORY: RADIATION DOSE DELIVERED:
--- NOTE | 2025-09-06 12:00 | DI.CT_ITS ---
Exam(s) CT BRAIN NECK CTA EXAM: CT BRAIN NECK CTA CLINICAL HISTORY: Altered. TECHNIQUE: Imaging Protocol: Axial CT angiography was performed with multi- slice acquisition and multi-planar and/or 3D reconstructions. CONTRAST MATERIAL: Intravenous: Omnipaque 350 contrast volume:70 mL COMPARISON: CT CT HEAD WO from 02/24/[address] BRAIN NECK CTA from 08/16/2025 FINDINGS: CT Head W/O and W: Ventricles and Extra axial spaces: Normal in size and morphology for the patient's age. The previously seen intraventricular hemorrhage has resolved. Hemorrhage: Previously seen hemorrhage on the left has resolved. There are areas of decreased attenuation in the white matter consistent with chronic microvascular ischemic disease. There is encephalomalacia on the left involving the left parietal lobe. Cerebral parenchyma: There is no acute midline shift or mass effect present. There is mild peripheral enhancement of the previous area of hemorrhage. Midline shift: None. Brainstem/Cerebellum: Normal. Calvarium: Normal. Visualized Paranasal sinuses/Mastoids: Clear. Soft Tissues: Unremarkable. Enhancement: There is a stable hyperdense nodule along the posterior falx which may represent a meningioma. CTA Neck W: Common Carotid: There is calcific plaque seen in the carotid bulbs. Right: No dissection, occlusion or significant stenosis. Left: No dissection, occlusion or significant stenosis. External Carotid: Right: No occlusion or significant stenosis. Left: No occlusion or significant stenosis. Internal Carotid: There is calcific plaque seen in the internal carotid arteries, left greater than right. Right: No dissection, occlusion or significant stenosis. Left: No dissection, occlusion or significant stenosis. Vertebral Artery: Atherosclerotic calcification is present distally. Right: No dissection, occlusion or significant stenosis. Left: No dissection, occlusion or significant stenosis. Lung Apices: Normal. Bones: Within normal limits for the patient's age. Stable degenerative changes are seen in the cervical spine. Soft Tissues: Normal. Thyroid gland: Unremarkable. CTA Brain W: Internal Carotid Arteries: Atherosclerotic calcification is seen in the cavernous portions of the internal carotid arteries bilaterally. No significant stenosis is seen. No occlusion or aneurysm is present. Anterior Cerebral Arteries: Right: No aneurysm, occlusion or significant stenosis. Left: No aneurysm, occlusion or significant stenosis. Middle Cerebral Arteries: Right: No aneurysm, occlusion or significant stenosis. Left: No aneurysm, occlusion or significant stenosis. Posterior Cerebral Arteries: Right: No aneurysm, occlusion or significant stenosis. Left: No aneurysm, occlusion or significant stenosis. Vertebral Arteries: Right: No aneurysm, occlusion or significant stenosis. Left: No aneurysm, occlusion or significant stenosis. Basilar Artery: No aneurysm, occlusion or significant stenosis. IMPRESSION: 1. No large vessel occlusion or significant stenosis on the CT angiography of the head. 2. Resolving intraparenchymal hemorrhage in the left miles radiata and left thalamus. No acute hemorrhage is seen. 3. There is no acute intracranial process. 4. No occlusion or significant stenosis on the CT angiography of the neck. RADIATION DOSE DELIVERED: 1,881.3mGy.cm Total DLP DATA REPOSITORY: All CT scans at this facility are submitted to the National Radiology Data Registry (NRDR) Dose Index Registry (DIR) with the [employer] ([employer]). RADIATION OPTIMIZATION: All CT scans at this facility use at least one of these dose optimization techniques: automated exposure control; mA and/or kV adjustment per patient size (includes targeted exams where dose is matched to clinical indication); or iterative reconstruction.
--- NOTE | 2025-09-06 12:00 | RT.EKG_ITS ---
APPROVED REPORT Exam: Resting ECG Reason for Exam: AMS Patient Location: E HR:80 bpm ECG Measurements Heart Rate 80 AXIS WA [id number] P [id number] QRSd 89 QRS 95 QT 413 T -32 QTc 478 Conclusion Atrial fibrillation...? atrial activity Right axis deviation...QRS axis ( 91,269) Low voltage, extremity leads...all extremity leads <0.5mV No Occlusion [place]
[2025-09-06] MEDS: Omnipaque 350 MG/ML 100 ML BTL IJ (12:21)
[2025-09-06] MEDS: Normal Saline - Diluent 50 ML VIAL IJ (12:21)
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
[2025-09-06 13:04] LABS: Troponin I 17 ng/L (<35)
[2025-09-06 13:06] LABS: Anion Gap 8.1 mmol/L (3-11); BUN 29 mg/dL (9-23); CO2 29.1 mmol/L (20.0-31.0); Calcium 9.8 mg/dL (8.3-10.6); Chloride 96 mmol/L (98-107); Glucose 103 mg/dL (74-106); Potassium 4.1 mmol/L (3.5-5.1); Sodium 133 mmol/L (136-145)
[2025-09-06] MEDS: Normal Saline 500 ML IV (13:23)
[2025-09-06 14:53] LABS: Troponin I 16 ng/L (<35)
--- NOTE | 2025-09-06 15:13 | NUR.NOTE ---
Nursing Note: pt incontinent at baseline, pt refusing straight cath. This nurse provided education, pt able to verbalize understanding however declined providing urine sample with straight cath
[2025-09-06 16:01] LABS: HCT 34.0 % (36.0-46.0); HGB 11.2 g/dL (11.2-15.7); MCH 30.1 pg (27.0-33.0); MCHC 32.9 % (32.0-36.0); MCV 91 fL (80-95); MPV 10.2 fL (8.0-11.0); Platelet Count 264 10^3/uL (130-400); RBC 3.72 10^6/uL (3.93-5.22); RDW 14.5 % (11.7-14.6); RDW-SD 48.6 fL; WBC 5.64 10^3/uL (4.4-10.8)
[2025-09-06 16:02] LABS: Abs Immature Grans 0.02 10^3/uL (0.0-0.06); Immature Grans % 0.4 %
--- NOTE | 2025-09-08 08:00 | NUR.NOTE ---
Access chart to reconcile EKG orders with EKG's in [facility]. Duplicate order cancelled. Nursing Note:
== END 2025-09-06 15:58 | disposition home or self-care (01) ==
PROVIDERS: Emergency Provider Emergency Medicine; PCP Family Medicine
DX: G93.40 Encephalopathy, unspecified (principal); Z59.89 Other problems related to housing and economic circumstances; Z60.8 Other problems related to social environment
CPT/HCPCS: 36415; 70496; 70498; 80048; 93005; 96360; 99285; 71045; 84484; 85025; 93010; 99284; J3490

== ENCOUNTER 2025-09-06 18:21 | Inpatient (IN) | payer MEDICARE, MEDICAID, SELFPAY ==
[2025-09-06] VITALS (31 sets, daily range): BP systolic 79–120; BP diastolic 40–71; PULSE 109–121; RESP 14–31; TEMP 36.8–37.1; O2SAT 90–98
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
[2025-09-06] MEDS: diphenhydrAMINE 50 MG/ML VIAL 25 MG IVP (18:52)
[2025-09-06] MEDS: methylPREDNISolone SUCC 125 MG VIAL IVP (18:52)
[2025-09-06] MEDS: Loratidine 10 MG TAB PO (18:52)
[2025-09-06 18:53] LABS: Abs Immature Grans 0.08 10^3/uL (0.0-0.06); HCT 37.4 % (36.0-46.0); HGB 11.9 g/dL (11.2-15.7); Immature Grans % 0.7 %; MCH 29.2 pg (27.0-33.0); MCHC 31.8 % (32.0-36.0); MCV 92 fL (80-95); MPV 10.3 fL (8.0-11.0); Platelet Count 320 10^3/uL (130-400); RBC 4.08 10^6/uL (3.93-5.22); RDW 14.4 % (11.7-14.6); RDW-SD 48.7 fL; WBC 11.01 10^3/uL (4.4-10.8)
[2025-09-06] MEDS: Normal Saline 500 ML IV (18:55)
[2025-09-06 18:57] LABS: ESR 41 mm/hr (0-30)
[2025-09-06] MEDS: Famotidine 20 MG/2 ML VIAL IVP (19:05)
[2025-09-06 19:16] LABS: Ammonia 76 umol/L (11-32); C-Reactive Protein 4.09 mg/dL (<=0.50); Troponin I 19 ng/L (<35)
[2025-09-06 19:19] LABS: TSH (W/Ref FT4) 9.28 uIU/mL (0.55-4.78)
[2025-09-06 19:22] LABS: ALT 12 U/L (10-49); AST 34 U/L (<34); Albumin 3.5 g/dL (3.2-5.0); Alkaline Phosphatase 109 U/L (46-116); Anion Gap 13.4 mmol/L (3-11); BUN 29 mg/dL (9-23); Bilirubin, Total 0.8 mg/dL (0.2-1.2); CO2 23.6 mmol/L (20.0-31.0); Calcium 9.9 mg/dL (8.3-10.6); Chloride 99 mmol/L (98-107); Glucose 82 mg/dL (74-106); Potassium 4.5 mmol/L (3.5-5.1); Sodium 136 mmol/L (136-145); Total Protein 7.4 g/dL (5.7-8.2)
[2025-09-06 19:32] LABS: Magnesium 2.0 mg/dL (1.6-2.6)
[2025-09-06] MEDS: LORazepam 2 MG/ML VIAL 1 MG IVP (20:10)
[2025-09-06] MEDS: Normal Saline - Diluent 50 ML VIAL IJ (20:11)
[2025-09-06] MEDS: Normal Saline Flush 10 ML SYR IVP (20:11)
[2025-09-06] MEDS: Omnipaque 350 MG/ML 100 ML BTL IJ (20:12)
--- NOTE | 2025-09-06 20:24 | DI.CT_ITS ---
Exam(s) CT CHEST/ABD/PEL W EXAM: CT CHEST/ABD/PEL W CLINICAL HISTORY: elev lactate, infection search, non-verbal TECHNIQUE: Imaging Protocol: Axial computed tomography images with coronal and sagittal reformatted images were created and reviewed. Lung Computer Aided Detection (CAD) was utilized. CONTRAST MATERIAL: Intravenous: Omnipaque 350 contrast volume:65 mL Oral: No COMPARISON: CT CT PELVIC W from 10/20/[address] LOWER EXTREMITY LT WO from 09/12/[address] PELVIC WO from 09/12/[address] ABDOMEN PELVIS CTA from 02/26/2025 FINDINGS: The examination is limited due to patient motion artifact. CHEST: Tracheobronchial tree: Patent where visualized. No evidence of bronchiectasis. Pulmonary parenchyma: No consolidation or dominant measurable mass. No architectural distortion. Visualized thyroid gland: Unremarkable. Mediastinum and Adrienne: No dominant adenopathy or fluid collection. The esophagus is unremarkable. There is a small hiatal hernia. Pleura: No effusion or pneumothorax. Heart: The heart is enlarged. Coronary artery calcification is present. No pericardial effusion. Pulmonary arteries: There is no large central pulmonary embolism. Aorta: Thoracic aorta non-dilated. Atherosclerotic calcification is present. Lymph nodes: Within normal limits. Soft tissues: Unremarkable. Bones:Within normal limits for the patient's age. ABDOMEN: Liver: Normal density. No measurable mass. Portal, Superior Mesenteric, and Splenic Veins: Unremarkable. Gallbladder and Biliary Tract: There are gallstones present. There is no significant biliary ductal dilatation. Pancreas: Normal density, no abnormal calcifications or inflammatory process. Spleen: Normal. Adrenals: No masses seen. Kidneys: There is bilateral renal cortical atrophy. There is renal scarring seen in the lower pole of the left kidney. There is a simple cyst in the right kidney. No follow-up is recommended. There are smaller round hypodensity seen in each kidney. They are too small for further characterization but likely reflect small cysts. No follow-up is recommended. No radiodense stones or obstructive uropathy. No masses seen. Abdominal Aorta: Abdominal portion non-dilated. Atherosclerotic calcification is present. There is marked calcification of the superior mesenteric and splenic arteries. Bowel: There is diverticulosis of the colon without evidence of acute diverticulitis. There is no evidence of bowel obstruction or bowel wall thickening. There is no evidence of an appendicitis. Peritoneal Cavity: No ascites, collection or mesenteric inflammatory response. No free air. Lymph Nodes: Within normal limits. Bones: Within normal limits for the patient's age. There are old healed pubic rami fractures bilaterally. There is artifact from the patient's left total hip arthroplasty. The bones are osteopenic. There is an old superior endplate deformity of L3. Soft Tissues: There is a small fat containing umbilical hernia. There is diffuse fatty atrophy of the musculature of the abdominal wall and pelvis. PELVIS: Bladder: Symmetric distention, no gross wall thickening. Reproductive Organs: Unremarkable as visualized. Lymph Nodes: Within normal limits. Bones: Within normal limits. IMPRESSION: 1. There is no acute abdominal or pelvic process. 2. Incidental findings in the abdomen and pelvis as described above. 3. Cholelithiasis. There is no biliary ductal dilatation. If there is concern for gallbladder pathology, gallbladder ultrasound is recommended. 4. There is no acute pulmonary process. 5. The preliminary [facility] report was reviewed. RADIATION DOSE DELIVERED: 331.56mGy.cm Total DLP DATA REPOSITORY: All CT scans at this facility are submitted to the National Radiology Data Registry (NRDR) Dose Index Registry (DIR) with the [employer] (ACR). RADIATION OPTIMIZATION: All CT scans at this facility use at least one of these dose optimization techniques: automated exposure control; mA and/or kV adjustment per patient size (includes targeted exams where dose is matched to clinical indication); or iterative reconstruction.
[2025-09-06] MEDS: CEFEPIME 2 GM in Normal Saline 100 ML IVPB (20:50)
--- NOTE | 2025-09-06 21:06 | DI.[facility]_ITS ---
PROCEDURE INFORMATION: Exam: CT Chest With Contrast; Diagnostic Exam date and time: 09/06/2025 8:09 PM Age: 85 years old Clinical indication: Other: Elev lactate, infection search, non-verbal TECHNIQUE: Imaging protocol: Diagnostic computed tomography of the chest with contrast. 3D rendering (Not supervised by radiologist): MIP and/or 3D reconstructed images were created by the technologist. Radiation optimization: All CT scans at this facility use at least one of these dose optimization techniques: automated exposure control; mA and/or kV adjustment per patient size (includes targeted exams where dose is matched to clinical indication); or iterative reconstruction. Contrast material: [id number]; Contrast volume: 65 ml; Contrast route: INTRAVENOUS (IV); COMPARISON: CR XR CHEST 1V IN DI DEPT 09/06/2025 12:17 PM FINDINGS: Lungs: Unremarkable. No consolidation. No masses. Pleural spaces: Unremarkable. No pneumothorax. No pleural effusion. Heart: Cardiomegaly. Coronary arteries: Coronary artery calcifications/stents identified. Lymph nodes: Unremarkable. No enlarged lymph nodes. Vasculature: Unremarkable. No aortic aneurysm. Bones/joints: Unremarkable. No acute fracture. Soft tissues: Unremarkable. Other findings: Respiratory motion slightly limits the exam. IMPRESSION: No acute abnormality seen in the chest to account for symptoms. PROCEDURE INFORMATION: Exam: CT Abdomen And Pelvis With Contrast Exam date and time: 09/06/2025 8:09 PM Age: 85 years old Clinical indication: Other: Elev lactate, infection search, non-verbal TECHNIQUE: Imaging protocol: Computed tomography of the abdomen and pelvis with contrast. 3D rendering (Not supervised by radiologist): MIP and/or 3D reconstructed images were created by the technologist. Radiation optimization: All CT scans at this facility use at least one of these dose optimization techniques: automated exposure control; mA and/or kV adjustment per patient size (includes targeted exams where dose is matched to clinical indication); or iterative reconstruction. Contrast material: [id number]; Contrast volume: 65 ml; Contrast route: INTRAVENOUS (IV); COMPARISON: CT ABDOMEN PELVIS CTA 02/26/2025 5:53 PM FINDINGS: Liver: Normal. No mass. Gallbladder and biliary ducts: There may be some mild gallbladder wall thickening and possible hyperemia. Multiple gallstones present. Pancreas: Normal. No ductal dilation. Spleen: Normal. No splenomegaly. Adrenal glands: Normal. No mass. Kidneys and ureters: Mild bilateral renal cortical volume loss. No hydronephrosis or hydroureter. Small bilateral cysts. Stomach and bowel: Diverticulosis without acute diverticulitis. Appendix: No evidence of appendicitis. Intraperitoneal space: Unremarkable. No free air. No significant fluid collection. Vasculature: Severe atherosclerotic change present in the vasculature. Lymph nodes: Unremarkable. No enlarged lymph nodes. Urinary bladder: Unremarkable as visualized. Reproductive: Unremarkable as visualized. Bones/joints: Left hip prosthesis in place with wire fixation of the femoral component. Old bilateral inferior pubic rami fractures seen. There is some lucency with cortical disruption of the right pubic symphysis inferiorly, possible posttraumatic deformity. Moderate lumbar spondylosis. Soft tissues: Unremarkable. IMPRESSION: Concern for gallbladder disease. Recommend sonography. Dictated and Authenticated by: Cherie Jorge MD. Orderin Yadira Moreno MD
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
[2025-09-06] MEDS: Normal Saline 1,000 ML 100 ML IV (21:27)
--- NOTE | 2025-09-06 23:33 | W.PC.ACHO ---
Registration Status: ADM IN Primary Language: Preferred Language: Mohawk ED Information & Data Chief Complaint Allergic 09/06/25 18:57 Chief Complaint Allergic 09/06/25 18:30 Triage Note pt seen today, had ct w/ 09/06/25 18:21 contrast prior to previous discharge hours ago. since then has full body hives/ itchy. 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) Cardiomyopathy Generalized osteoarthrosis Closed fracture of left femur (08/22/17) (Last Reviewed 08/31/25 @ 13:39 by Agnes Wills MD) Status post open reduction with internal fixation of fracture Total replacement of hip (07/08/11) Debridement, Soft Tissue (09/29/17) Bilateral salpingectomy with oophorectomy Most Recent Vital Signs Temperature 37.1 C 09/06/25 22:30 Temperature Source Tympanic 09/06/25 22:30 Pulse 110 H 09/06/25 22:30 Pulse 111 H 09/06/25 21:50 Respiratory Rate 18 09/06/25 22:30 Respiratory Effort Normal 09/06/25 18:57 Respiratory Pattern Normal 09/06/25 18:57 Blood Pressure 120/62 09/06/25 22:30 Blood Pressure Mean 81 09/06/25 22:30 Pulse Oximetry 95 09/06/25 22:30 Oxygen Delivery Method Room Air 09/06/25 22:30 Oxygen Flow Rate 0 09/06/25 22:30 Pain Level 0 09/06/25 18:21 Allergies sulfamethoxazole Adverse Reaction (Mild, Verified 09/06/25 12:06) NAUSEA trimethoprim Adverse Reaction (Mild, Verified 09/06/25 12:06) NAUSEA MELISSA Inhibitors Adverse Reaction (Unknown, Verified 09/06/25 12:06) RENAL INSUFFIENCIENCY benazepril Adverse Reaction (Unknown, Verified 09/06/25 12:06) unknown lovastatin Adverse Reaction (Unknown, Verified 09/06/25 12:06) LIGHTHEADEDNESS methyldopa Adverse Reaction (Unknown, Verified 09/06/25 12:06) unknown simvastatin (From Zocor) Adverse Reaction (Unknown, Verified 09/06/25 12:06) BODY ACHES W/ HIGHER DOSES Active Medications Generic Name Dose Route Start Last Admin Trade Name Freq PRN Reason Stop Dose Admin Sodium Chloride 1,000 mls @ 100 mls/hr 09/06/25 21:15 09/06/25 21:27 Saline 1000ml Bag IV 100 mls/hr INFUSION DENISSE Administration Iohexol 100 ml 09/06/25 20:15 09/06/25 20:12 Omnipaque 350 Mg/Ml 100 Ml Btl IJ 10/06/25 23:59 65 ml DIRECTED DENISSE Administration Sodium Chloride 0 ml 09/06/25 20:10 09/06/25 20:11 Normal Saline Flush 10 Ml Syr IVP 10 ml PRN PRN Administration Sodium Chloride 50 ml 09/06/25 20:15 09/06/25 20:11 Normal Saline - Diluent 50 Ml Vial IJ 50 ml DIRECTED DENISSE Administration IV IV Catheter Type [Left Peripheral IV Antecubital] IV Catheter Gauge [Left 18 Antecubital] Diet Orders Category Date Time Status Regular/Normal [DIET] Nutrition 09/07/25 Breakfast Ordered Diagnostics 09/06/25 Range/Units 18:45 WBC 11.01 H (4.4-10.8) 10^3/uL RBC 4.08 (3.93-5.22) 10^6/uL Hgb 11.9 (11.2-15.7) g/dL Hct 37.4 (36.0-46.0) % MCV 92 (80-95) fL MCH 29.2 (27.0-33.0) pg MCHC 31.8 L (32.0-36.0) % RDW 14.4 (11.7-14.6) % Plt Count 320 (130-400) 10^3/uL MPV 10.3 (8.0-11.0) fL Immature Gran % 0.7 % Neutrophils % 90.8 % Lymphocytes % 3.4 % Monocytes % 4.0 % Eosinophils % 1.0 % Basophils % 0.1 % Nucleated RBC % 0.0 (0.0-0.3) % Absolute Neutrophils 10.00 H (1.2-6.7) 10^3/uL Absolute Lymphocytes 0.37 L (1.2-3.4) 10^3/uL Absolute Monocytes 0.44 (0.1-0.8) 10^3/uL Absolute Eosinophils 0.11 (0.0-0.7) 10^3/uL Absolute Basophils 0.01 (0.0-0.2) 10^3/uL ESR 41 H (0-30) mm/hr VBG Lactate 4.5 H* (<or=2.0) mmol/L Sodium 136 (136-145) mmol/L Potassium 4.5 (3.5-5.1) mmol/L Chloride 99 (98-107) mmol/L Carbon Dioxide 23.6 (20.0-31.0) mmol/L Anion Gap 13.4 H (3-11) mmol/L BUN 29 H (9-23) mg/dL Creatinine 1.20 H (0.55-1.02) mg/dL Est GFR (CKD-EPI 2020) 42.53 (mL/min/1.73m2) Glucose 82 (74-106) mg/dL Calcium 9.9 (8.3-10.6) mg/dL Magnesium 2.0 (1.6-2.6) mg/dL Total Bilirubin 0.8 (0.2-1.2) mg/dL AST 34 (<34) U/L ALT 12 (10-49) U/L Alkaline Phosphatase 109 (46-116) U/L Ammonia 76 H (11-32) umol/L Troponin I 19 (<35) ng/L C-Reactive Protein 4.09 H (<=0.50) mg/dL Total Protein 7.4 (5.7-8.2) g/dL Albumin 3.5 (3.2-5.0) g/dL TSH 9.28 H (0.55-4.78) uIU/mL Free T4 1.36 (0.89-1.76) ng/mL 09/06/25 19:25 Blood Culture - Pending Blood 09/06/25 19:40 Blood Culture - Pending Blood Intake and Output - 24 Hour Total 09/06/25 18:17 thru 09/06/25 23:13 Intake Total 500 Balance 500 Weight 43.7 kg Intake: IV 500 Falls Risk Assessment History of Falls Previous History 09/06/25 18:58 Contributing Factors Confusion,Unstable, 09/06/25 18:58 Impairments,Medications Ambulatory Aids Independent 09/06/25 18:58 Tubes/Lines With any additional score 09/06/25 18:58 Gait Evaluation W/any additional score 09/06/25 18:58 Cognition Cognitive impairment 09/06/25 18:58 Fall Total Score 82 09/06/25 18:58 Level of Risk Maximum Risk 09/06/25 18:58 Problems (Last Reviewed 08/31/25 @ 13:39 by Agnes Wills MD) Infectious encephalopathy (Acute) Cholecystitis (Acute) Septic shock (Acute) Stroke (Chronic) Severe aortic valve stenosis (Acute) CKD stage 3b, GFR 30-44 ml/min (Acute) Hypothyroidism (Chronic) Atrial fibrillation (Chronic) Attestation Statement: By documenting the first initial, last name, and credentials of the reporting nurse below, both parties acknowledge that all relevant information regarding the patient handoff has been communicated, and that all questions have been addressed to ensure continuity and safety of care. Additional Patient Information/Comments: PT brought to the ER at the morning of 09/13 from [facility] rehab, unresponsive,contrast head CT to R/O stroke, pt sent back home, came back for allergic reaction, redness, itching all over, cefipim, benadryl, lorazepam given at er. pt alert confused, NS fluid runing at 100ml/h Report Received From: Monique MUHAMMAD
[2025-09-07 00:15] LABS: Glucose Negative (Negative)
[2025-09-07 00:24] LABS: WBC >50 HPF (0-5)
[2025-09-07 00:25] LABS: C & S Indicated? Yes
[2025-09-07 03:34] VITALS: BP 147/88; PULSE 86; RESP 18; TEMP 36; O2SAT 90
[2025-09-07] MEDS: Levothyroxine 88 MCG TAB PO (06:36)
[2025-09-07] MEDS: Pantoprazole 40 MG TABCR PO (06:36)
[2025-09-07 07:27] LABS: HCT 36.5 % (36.0-46.0); HGB 11.8 g/dL (11.2-15.7); MCH 29.9 pg (27.0-33.0); MCHC 32.3 % (32.0-36.0); MCV 93 fL (80-95); MPV 10.7 fL (8.0-11.0); Platelet Count 258 10^3/uL (130-400); RBC 3.94 10^6/uL (3.93-5.22); RDW 14.7 % (11.7-14.6); RDW-SD 50.2 fL; WBC 14.81 10^3/uL (4.4-10.8)
[2025-09-07 07:52] LABS: Magnesium 2.1 mg/dL (1.6-2.6)
[2025-09-07 07:53] LABS: Anion Gap 12.5 mmol/L (3-11); BUN 33 mg/dL (9-23); CO2 23.5 mmol/L (20.0-31.0); Calcium 9.6 mg/dL (8.3-10.6); Chloride 103 mmol/L (98-107); Glucose 133 mg/dL (74-106); Potassium 4.4 mmol/L (3.5-5.1); Sodium 139 mmol/L (136-145)
[2025-09-07] MEDS: Budesonide/Formoterol 80/4.5 6.9 GM 60 PUFF INH IH ×2 (08:06→19:42)
[2025-09-07 08:28] VITALS: BP 137/84; PULSE 80; RESP 16; TEMP 36.2; O2SAT 96
[2025-09-07] MEDS: Enoxaparin 30 MG/0.3 ML SYR SC (09:10)
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
--- NOTE | 2025-09-07 11:12 | W.PM.PROGNOT ---
Date of Service Date of service: 09/07/25 Time of Service: 11:32 Assessment and Plan Assessment and plan (1) Severe sepsis: Status: Acute Assessment and plan: - Patient meets criteria for severe sepsis with a heart rate greater than 110, respiratory rate in the 30s, presumed source of infection being possible cholecystitis seen on CT vs UTI and initial lactic of 4.5 - IV fluids were not given in the emergency department due to history of severe aortic stenosis, but not taking much po today so will start with 250ml bolus then 125/hr - Started on cefepime. renally dose. (2) Urinary tract infection: Status: Acute Assessment and plan: U/a c/w UTI, hard to assess symtpoms with MS. Continue cefepime with blood/urine cx pending. (3) Cholecystitis: Status: Acute Assessment and plan: - Possible source of infection as noted above, but f/u ultrasound less suggestive of cholecysticitis, follow exam/labs. (4) Rash: Status: Acute Assessment and plan: - Patient apparently was sent to due to rash after removing contrast-induced from emergency room visit earlier that day, but rash has resolved depsite a second CT w/contr (5) Infectious encephalopathy: Status: Acute Assessment and plan: -while patient is minimally verbal at baseline MS is further deminished with acute infection. Follow. She also had CTA head/neck 09/06 with nothing acute (6) Stroke: Status: Chronic Assessment and plan: - History of, resulting in right hemiparesis and aphasia (7) Severe aortic valve stenosis: Status: Acute Assessment and plan: - Seen on recent echocardiogram in July 2025, unclear if surgical candidate per Dr. Wills, even for TAVR - Will be conservative with fluids (8) Atrial fibrillation: Status: Chronic Assessment and plan: -Rate control with bisoprolol. -no longer on anticoagulation due to recent GI bleed (9) CKD stage 3b, GFR 30-44 ml/min: Status: Acute Assessment and plan: at baseline, follow (10) Asthma: Assessment and plan: -without acute exacerbation -albuterol prn Subjective Subjective Patient reports: denies tolerating liquids well, diarrhea, vomiting or fever Interval history since last seen: Not verbal, some wincing and moaning with exam (such as moving right sided contracted leg/arm) but not responsive to questions. Per ARTIST WOODBLOCK scratching her skin a lot, which she has done in previous admissions Exam Narrative Exam Narrative: Chronically ill-appearing nonverbal female lying in bed in no acute distress, awake, again nonverbal which is baseline lungs clear to auscultation bilaterally, normal effort CV: RRR Abdomen soft, nontender, nondistended EXT: no edema. right arm/leg contracted. skin: warm, dry, no visible rash noted but some scratches Objective Last Vital Signs Temp 36.2 C L 09/07/25 08:28 Pulse 80 09/07/25 08:28 Resp 16 09/07/25 08:28 BP 137/84 09/07/25 08:28 Pulse Ox 96 09/07/25 08:28 Laboratory Results - last 24 hr 09/06/25 09/07/25 09/07/25 18:45 00:01 06:50 WBC 11.01 H 14.81 H RBC 4.08 3.94 Hgb 11.9 11.8 Hct 37.4 36.5 MCV 92 93 MCH 29.2 29.9 MCHC 31.8 L 32.3 RDW 14.4 14.7 H Plt Count 320 258 MPV 10.3 10.7 Immature Gran % 0.7 Neutrophils % 90.8 Lymphocytes % 3.4 Monocytes % 4.0 Eosinophils % 1.0 Basophils % 0.1 Nucleated RBC % 0.0 Absolute Neutrophils 10.00 H Absolute Lymphocytes 0.37 L Absolute Monocytes 0.44 Absolute Eosinophils 0.11 Absolute Basophils 0.01 ESR 41 H VBG Lactate 4.5 H* Sodium 136 139 Potassium 4.5 4.4 Chloride 99 103 Carbon Dioxide 23.6 23.5 Anion Gap 13.4 H 12.5 H BUN 29 H 33 H Creatinine 1.20 H 1.37 H Est GFR (CKD-EPI 2020) 42.53 36.50 Glucose 82 133 H Calcium 9.9 9.6 Magnesium 2.0 2.1 Total Bilirubin 0.8 AST 34 ALT 12 Alkaline Phosphatase 109 Ammonia 76 H Troponin I 19 C-Reactive Protein 4.09 H Total Protein 7.4 Albumin 3.5 TSH 9.28 H Free T4 1.36 Urine Color Yellow Urine Clarity Clear Urine pH 7.0 Ur Specific [place] 1.015 Urine Protein Negative Urine Ketones Negative Urine Blood Small H Urine Nitrite Negative Urine Bilirubin Negative Urine Urobilinogen 0.2 Ur Leukocyte Esterase Large H Urine RBC 10-20 H Urine WBC >50 H Ur Epithelial Cells Few Urine Crystals Negative Urine Bacteria Few Urine Casts Negative Urine Mucus Negative Ur Culture Indicated? Yes Urine Glucose Negative VTE Prohylaxis Risk Level: Moderate/High Risk Contraindications: None Prophylaxis: Pharmacologic Time Spent with Patient Time Spent with Patient: 35-49 minutes Time was spent: preparing to see the patient(eg.review tests), obtaining and/or reviewing separately otained hiistory, ordering medications,tests, procedures, referring, communicating with other health patient care technician, indepentently interpreting results, counseling the patient and care coordination
[2025-09-07 11:57] VITALS: BP 138/83; PULSE 89; RESP 16; TEMP 36.3; O2SAT 98
[2025-09-07] MEDS: CEFEPIME 1 GM in Normal Saline 50 ML IVPB ×2 (13:14→23:33)
--- NOTE | 2025-09-07 14:52 | CHAPLAIN ---
Reta was in bed when I visited. She didn't speak but was moving around like she was uncomfortable but was able to say verbally what was bothering her. Her Data Management Specialist, Collette, was visiting too and let Reta's nurse know that she was in discomfort.
[2025-09-07 15:05] VITALS: BP 138/84; PULSE 93; RESP 18; TEMP 36.4; O2SAT 97
[2025-09-07] MEDS: Lactated Ringers 250 ML IV (18:27)
[2025-09-07 19:46] VITALS: BP 128/61; PULSE 92; RESP 14; TEMP 36.1; O2SAT 88
[2025-09-07] MEDS: POTASSIUM CHLORIDE/D5-0.45NACL 1,000 ML 125 MEQ IV (20:38)
--- NOTE | 2025-09-07 22:58 | DI.US_ITS ---
Exam(s) US ABDOMEN LIMITED EXAM: US ABDOMEN LIMITED CLINICAL HISTORY: RUQ ?gallstones, gallbladder wall thickening on CT TECHNIQUE: Ultrasound abdomen performed using standard protocol. COMPARISON: US ABDOMEN ULTRASOUND (P) from 07/17/[address] CHEST/ABD/PEL W from 09/06/2025 FINDINGS: PANCREAS: Normal where visualized. LIVER: Normal. Hepatopetal flow in the Portal Vein. The liver measures in 15.1 cm length. No evidence of a hepatic mass. GALLBLADDER:There are multiple stones seen within the gallbladder. No evidence of wall thickening. No pericholecystic fluid identified. BILIARY SYSTEM: Common bile duct measures < 7 mm. No intrahepatic biliary ductal dilation. BLAIR'S SIGN: Negative. RIGHT KIDNEY: The right kidney cannot be visualized on this examination. ASCITES: None seen. IMPRESSION: 1. Examination was limited due to limited patient mobility. 2. Cholelithiasis without evidence to suggest acute cholecystitis. DATA REPOSITORY:
[2025-09-07 23:03] VITALS: BP 106/57; PULSE 96; RESP 16; TEMP 36.5; O2SAT 98
[2025-09-08] MEDS: diphenhydrAMINE 50 MG/ML VIAL 25 MG IVP (01:26)
[2025-09-08 03:21] VITALS: BP 105/38; PULSE 79; RESP 16; TEMP 36.4; O2SAT 98
[2025-09-08] MEDS: POTASSIUM CHLORIDE/D5-0.45NACL 1,000 ML 125 MEQ IV ×3 (05:04→18:47)
[2025-09-08] MEDS: Levothyroxine 88 MCG TAB PO (05:57)
[2025-09-08] MEDS: Pantoprazole 40 MG TABCR PO (06:07)
[2025-09-08 07:07] LABS: ALT 13 U/L (10-49); AST 32 U/L (<34); Albumin 3.0 g/dL (3.2-5.0); Alkaline Phosphatase 70 U/L (46-116); Anion Gap 10.7 mmol/L (3-11); BUN 36 mg/dL (9-23); Bilirubin, Total 0.4 mg/dL (0.2-1.2); CO2 23.3 mmol/L (20.0-31.0); Calcium 9.3 mg/dL (8.3-10.6); Chloride 108 mmol/L (98-107); Glucose 140 mg/dL (74-106); Potassium 4.6 mmol/L (3.5-5.1); Sodium 142 mmol/L (136-145); Total Protein 6.2 g/dL (5.7-8.2)
[2025-09-08 07:12] LABS: Abs Immature Grans 0.07 10^3/uL (0.0-0.06); HCT 27.4 % (36.0-46.0); HGB 8.8 g/dL (11.2-15.7); Immature Grans % 0.5 %; MCH 30.0 pg (27.0-33.0); MCHC 32.1 % (32.0-36.0); MCV 94 fL (80-95); MPV 11.0 fL (8.0-11.0); Platelet Count 243 10^3/uL (130-400); RBC 2.93 10^6/uL (3.93-5.22); RDW 15.0 % (11.7-14.6); RDW-SD 51.8 fL; WBC 14.03 10^3/uL (4.4-10.8)
--- NOTE | 2025-09-08 07:53 | NUR.NOTE ---
Access chart to reconcile EKG orders with EKG's in [facility]. Duplicate order cancelled.Nursing Note:
[2025-09-08] MEDS: traMADol 50 MG TAB PO (08:00)
[2025-09-08] MEDS: hydrOXYzine HCL 25 MG TAB PO ×2 (08:01→20:39)
[2025-09-08] MEDS: Bisoprolol 5 MG TAB PO ×2 (08:01→20:39)
[2025-09-08] MEDS: Cetirizine 10 MG TAB PO (08:01)
[2025-09-08] MEDS: Enoxaparin 30 MG/0.3 ML SYR SC (08:01)
[2025-09-08 08:07] VITALS: BP 123/76; PULSE 111; RESP 16; TEMP 36.7; O2SAT 100
[2025-09-08] MEDS: CEFEPIME 1 GM in Normal Saline 50 ML IVPB ×2 (11:31→23:31)
[2025-09-08 11:48] VITALS: BP 129/50; PULSE 89; RESP 16; TEMP 36.9; O2SAT 99
--- NOTE | 2025-09-08 14:45 | PGE_ITS ---
Date of Service Date of service: 09/08/25 Time of Service: 14:45 Assessment and Plan Assessment and plan (1) Severe sepsis: Status: Acute Assessment and plan: - Patient met criteria for severe sepsis on admission with HR > 110,RR 30s, presumed source of infection being possible cholecystitis seen on CT vs UTI and initial lactic of 4.5 - IV fluids were not given in the emergency department due to history of severe aortic stenosis, but minimal po so 09/07 started with 250ml bolus LR then 125/hr - Started on cefepime. renally dose, continue for now with blood/urine cultures pending. (2) Urinary tract infection: Status: Acute Assessment and plan: U/a c/w UTI, hard to assess symtpoms with MS. Continue cefepime with blood/urine cx pending. (3) Cholecystitis: Status: Acute Assessment and plan: - Possible source of infection as noted above, but f/u ultrasound less suggestive of cholecysticitis. - Still appears to have RUQ tenderness. - follow exam/labs, consider HIDA scan Monday 09/10 if still unclear. (4) Rash: Status: Acute Assessment and plan: - Patient apparently was sent back to ED to due to rash after removing contrast- induced from emergency room visit earlier the day of admission, though rash resolved despite repeat contrast CT which is not c/w contrast allergy. She is still itchy, which is chronic, but no ongoing rash. (5) Infectious encephalopathy: Status: Acute Assessment and plan: -while patient is minimally verbal at baseline MS, and was further deminished with acute infection on admission. She also had CTA head/neck 09/06 with nothing acute. Some improvement today 09/08. (6) Severe aortic valve stenosis: Status: Acute Assessment and plan: - Seen on recent echocardiogram in July 2025, unclear if surgical candidate per Dr. Wills, even for TAVR - Will be conservative with fluids, no signs CHF now. (7) Atrial fibrillation: Status: Chronic Assessment and plan: -Rate control with bisoprolol. -no longer on anticoagulation due to recent GI bleed, but prophylaxis okay. (8) CKD stage 3b, GFR 30-44 ml/min: Status: Acute Assessment and plan: at baseline, follow (9) Asthma: Assessment and plan: -without acute exacerbation -albuterol prn Subjective Subjective Patient reports: no new complaints and voiding w/o difficulty; denies diarrhea, vomiting or fever Interval history since last seen: No events per nursing. Didn't eat or drink much. Her swallow is not strong, on thickened liquids chronically. Exam Narrative Exam Narrative: Chronically ill-appearing nonverbal female lying in bed in no acute distress, awake, again nonverbal which is baseline lungs clear to auscultation bilaterally, normal effort CV: RRR, 2/6 systolic murmur Abdomen soft, nondistended, but winces with palpation RUQ. no masses. EXT: no edema. right arm/leg contracted. skin: warm, dry, no visible rash Objective Last Vital Signs Temp 36.9 C 09/08/25 11:48 Pulse 89 09/08/25 11:48 Resp 16 09/08/25 11:48 BP 129/50 L 09/08/25 11:48 Pulse Ox 99 09/08/25 11:48 Laboratory Results - last 24 hr 09/08/25 06:00 WBC 14.03 H RBC 2.93 L Hgb 8.8 L D Hct 27.4 L MCV 94 MCH 30.0 MCHC 32.1 RDW 15.0 H Plt Count 243 MPV 11.0 Immature Gran % 0.5 Neutrophils % 89.8 Lymphocytes % 4.8 Monocytes % 4.6 Eosinophils % 0.2 Basophils % 0.1 Nucleated RBC % 0.0 Absolute Neutrophils 12.60 H Absolute Lymphocytes 0.67 L Absolute Monocytes 0.65 Absolute Eosinophils 0.03 Absolute Basophils 0.01 Sodium 142 Potassium 4.6 Chloride 108 H Carbon Dioxide 23.3 Anion Gap 10.7 BUN 36 H Creatinine 1.45 H Est GFR (CKD-EPI 2020) 34.19 Glucose 140 H Calcium 9.3 Total Bilirubin 0.4 AST 32 ALT 13 Alkaline Phosphatase 70 Total Protein 6.2 Albumin 3.0 L VTE Prohylaxis Risk Level: Moderate/High Risk Contraindications: None Prophylaxis: Pharmacologic Time Spent with Patient Time Spent with Patient: 35-49 minutes Time was spent: preparing to see the patient(eg.review tests), obtaining and/or reviewing separately otained hiistory, ordering medications,tests, procedures, referring, communicating with other health respiratory care program director, indepentently interpreting results, counseling the patient and care coordination
[2025-09-08] MEDS: MORPHine 2 MG/ML SYR 1 MG IVP (15:08)
[2025-09-08] MEDS: Normal Saline Flush 10 ML SYR IVP (15:12)
[2025-09-08 15:54] VITALS: BP 114/61; PULSE 68; RESP 16; TEMP 36.9; O2SAT 95
[2025-09-08 19:41] VITALS: BP 132/56; PULSE 78; RESP 15; TEMP 36; O2SAT 96
[2025-09-08 23:28] VITALS: BP 122/49; PULSE 72; RESP 15; TEMP 36.2; O2SAT 97
[2025-09-09 02:54] VITALS: BP 129/90; PULSE 62; RESP 15; TEMP 36.2; O2SAT 99
[2025-09-09] MEDS: POTASSIUM CHLORIDE/D5-0.45NACL 1,000 ML 125 MEQ IV (02:59)
[2025-09-09] MEDS: Levothyroxine 88 MCG TAB PO (05:45)
[2025-09-09] MEDS: Pantoprazole 40 MG TABCR PO (05:45)
[2025-09-09 06:33] LABS: HCT 26.6 % (36.0-46.0); HGB 8.2 g/dL (11.2-15.7); MCH 29.5 pg (27.0-33.0); MCHC 30.8 % (32.0-36.0); MCV 96 fL (80-95); MPV 10.7 fL (8.0-11.0); Platelet Count 174 10^3/uL (130-400); RBC 2.78 10^6/uL (3.93-5.22); RDW 15.2 % (11.7-14.6); RDW-SD 53.3 fL; WBC 9.05 10^3/uL (4.4-10.8)
[2025-09-09 06:49] LABS: Anion Gap 6.9 mmol/L (3-11); BUN 29 mg/dL (9-23); CO2 23.1 mmol/L (20.0-31.0); Calcium 9.2 mg/dL (8.3-10.6); Chloride 109 mmol/L (98-107); Glucose 96 mg/dL (74-106); Potassium 5.2 mmol/L (3.5-5.1); Sodium 139 mmol/L (136-145)
[2025-09-09 07:31] VITALS: BP 106/60; PULSE 60; RESP 15; TEMP 35.9; O2SAT 99
[2025-09-09] MEDS: Enoxaparin 30 MG/0.3 ML SYR SC (09:51)
[2025-09-09] MEDS: DEXTROSE 5%-0.45% SALINE 1,000 ML 100 ML IV (11:29)
[2025-09-09] MEDS: CEFEPIME 1 GM in Normal Saline 50 ML IVPB ×2 (11:41→23:55)
[2025-09-09] MEDS: MORPHine 2 MG/ML SYR 1 MG IVP ×3 (13:35→22:32)
--- NOTE | 2025-09-09 16:31 | PGE_ITS ---
Date of Service Date of service: 09/09/25 Time of Service: 16:31 Assessment and Plan Assessment and plan (1) Severe sepsis: Status: Acute Assessment and plan: - Patient met criteria for severe sepsis on admission with HR > 110,RR 30s, presumed source of infection being possible cholecystitis seen on CT vs UTI and initial lactic of 4.5 - IV fluids were not given in the emergency department due to history of severe aortic stenosis, but minimal po so 09/07 started with 250ml bolus LR then 125/hr - Started on cefepime on admission. renally dose, continue for now with blood/ urine cultures pending but negative to date - WBC and vitals improved, sepsis physiology resolved, but mental status still not at previous baseline. (2) Urinary tract infection: Status: Acute Assessment and plan: U/a c/w UTI, hard to assess symtpoms with MS. Urine is only growing sophia, so I don't think we can say UTI is source for sepsis. (3) Cholecystitis: Status: Acute Assessment and plan: - Possible source of infection as noted above, but f/u ultrasound less suggestive of cholecysticitis. - At times appears to have RUQ tenderness. - follow LFTs in AM, get HIDA scan Monday 09/10 to try to clarify - I'm not sure she would be procedural candidate even if we found a source, however. (4) Rash: Status: Acute Assessment and plan: - Patient apparently was sent back to ED to due to rash after removing contrast- induced from emergency room visit earlier the day of admission, though rash resolved despite repeat contrast CT which is not c/w contrast allergy. - She is still itchy, which is chronic. try to manage without antihistamines that can make encephalopathy worse.. (5) Infectious encephalopathy: Status: Acute Assessment and plan: -while patient is minimally verbal at baseline MS, and was further deminished with acute infection on admission. She also had CTA head/neck 09/06 with nothing acute. -unfortunately she is not regaining her previous baseline. (6) Severe aortic valve stenosis: Status: Acute Assessment and plan: - Seen on recent echocardiogram in July 2025, unclear if surgical candidate per Dr. iWlls, even for TAVR - Continue to be conservative with fluids, no signs CHF now. (7) Atrial fibrillation: Status: Chronic Assessment and plan: -Rate control with bisoprolol. -no longer on anticoagulation due to recent GI bleed, but prophylaxis okay. (8) CKD stage 3b, GFR 30-44 ml/min: Status: Acute Assessment and plan: at baseline,some imrpovement today with IV fluids, follow. (9) Concern about end of life: Status: Acute Assessment and plan: She has an unclear acute illness and severe severe chronic issues high priorty for palliative consult 09/10 d/w daughter 09/09 Discharge Planning Discharge Planning: Unclear, may consider transition to comfort oriented care Subjective Subjective Patient reports: denies diarrhea, vomiting or fever Interval history since last seen: No events. No new concerns from nursing senior software development engineer. Per daughter she still looks worse, less interactive than her baseline. She still isn't eating/drinking much at all. Exam Narrative Exam Narrative: Chronically ill-appearing nonverbal female lying in bed in no acute distress, awake, again nonverbal which is baseline lungs clear to auscultation bilaterally, normal effort CV: RRR, 2/6 systolic murmur Abdomen soft, nondistended, does not since with exam today. no masses. EXT: no edema. right arm/leg contracted. skin: warm, dry, no visible rash, scattered hypopigmentation that appears chronic Objective Last Vital Signs Temp 35.9 C L 09/09/25 07:31 Pulse 60 09/09/25 07:31 Resp 15 09/09/25 07:31 BP 106/60 09/09/25 07:31 Pulse Ox 99 09/09/25 07:31 Laboratory Results - last 24 hr 09/09/25 06:15 WBC 9.05 RBC 2.78 L Hgb 8.2 L Hct 26.6 L MCV 96 H MCH 29.5 MCHC 30.8 L RDW 15.2 H Plt Count 174 MPV 10.7 Sodium 139 Potassium 5.2 H Chloride 109 H Carbon Dioxide 23.1 Anion Gap 6.9 BUN 29 H Creatinine 1.31 H Est GFR (CKD-EPI 2020) 38.44 Glucose 96 Calcium 9.2 VTE Prohylaxis Risk Level: Moderate/High Risk Contraindications: None Prophylaxis: Pharmacologic Time Spent with Patient Time Spent with Patient: 35-49 minutes Time was spent: preparing to see the patient(eg.review tests), obtaining and/or reviewing separately otained hiistory, ordering medications,tests, procedures, referring, communicating with other health resident care aide, indepentently interpreting results, counseling the patient and care coordination
--- NOTE | 2025-09-09 18:13 | NUR.NOTE ---
Nursing Note: At 6pm an update was given to Elizabeth MUHAMMAD at the [facility]
[2025-09-09 20:21] VITALS: BP 137/54; PULSE 61; RESP 12; TEMP 36.1; O2SAT 99
[2025-09-09] MEDS: Normal Saline Flush 10 ML SYR IVP (22:33)
[2025-09-10] MEDS: diphenhydrAMINE /ZINC ACET CR 30 GM TUBE TP (01:54)
[2025-09-10] MEDS: MORPHine 2 MG/ML SYR 1 MG IVP ×5 (01:55→20:53)
--- NOTE | 2025-09-10 07:00 | DI.NM_ITS ---
Exam(s) NM HEPATOBILIARY SCAN GRP EXAM: NM HEPATOBILIARY SCAN GRP CLINICAL HISTORY: RUQ tender, sepsis, unclear cholecystitis CT/us. TECHNIQUE: Injected dose: 5 mCi Tc-99 mebrofenin COMPARISON: NM rest from 01/07/[address] CHEST/ABD/PEL W from 09/06/2025 US US ABDOMEN LIMITED from 09/07/2025 FINDINGS: There is normal uptake and excretion of radiopharmaceutical by the liver. Activity is seen within the gallbladder lumen starting at 28 minutes post injection. Also down the nondilated CBD. CCK part of this study was not performed. IMPRESSION: 1. There is no obstruction of the cystic duct to suggest acute cholecystitis. 2. However, please note that these findings do not exclude a recent case of acute cholecystitis which has now been improving and presently without obstruction of the cystic duct. 3. SNM guidelines: Gallbladder visualization should be present by 3 hours. Delayed hxaiazw-fm-cmrir transit beyond 60 min raises the suspicion for partial common bile duct (CBD) obstruction. Gallbladder ejection fraction <35% has a good correlation with acalculous disease (i.e., chronic acalculous cholecystitis, cystic duct syndrome, sphincter of Oddi disease).
[2025-09-10 07:17] VITALS: BP 132/64; PULSE 62; RESP 17; TEMP 36.5; O2SAT 97
[2025-09-10 07:33] LABS: ALT 18 U/L (10-49); AST 28 U/L (<34); Albumin 3.2 g/dL (3.2-5.0); Alkaline Phosphatase 77 U/L (46-116); Anion Gap 8 mmol/L (3-11); BUN 24 mg/dL (9-23); Bilirubin, Direct 0.2 mg/dL (<=0.3); Bilirubin, Total 0.5 mg/dL (0.2-1.2); CO2 24.0 mmol/L (20.0-31.0); Calcium 9.2 mg/dL (8.3-10.6); Chloride 106 mmol/L (98-107); Glucose 79 mg/dL (74-106); Potassium 4.7 mmol/L (3.5-5.1); Sodium 138 mmol/L (136-145); Total Protein 6.4 g/dL (5.7-8.2)
[2025-09-10] MEDS: Normal Saline Flush 10 ML SYR IVP ×4 (09:57→20:37)
[2025-09-10 11:25] VITALS: BP 116/62; PULSE 63; RESP 16; TEMP 36.4; O2SAT 96
[2025-09-10] MEDS: CEFEPIME 1 GM in Normal Saline 50 ML IVPB (12:31)
--- NOTE | 2025-09-10 14:07 | PDOC.CMPRO ---
Date of service: 09/10/25 Time of Service: 17:19 Care Management Progress Note Progress Note Text Progress Note Text: Reta was lying in bed and asleep at the time CM met with her. Palliative Care is scheduled to see Reta today. Advance directives indicate comfort measures only if the patient is unable to make her own decisions; COLOR CONTROL SUPERVISOR orders are currently in place. An update was provided to [facility]. It is anticipated that the patient will remain at [facility] for end-of-life care. CM will continue to follow. Discharge Potential Discharge Needs: PCP F/U Appt Anticipated Barriers to Discharge: None Identified Patient/Family Education Needs: Review discharge instructions, discuss Ask Me Three Plan: Anticipate Reta remain at [facility] through end of life care. Final arrangements will be discussed with family, tomorrow. CM will follow. Social Determinants of Health Screening Will the Patient Participate in the Screening?: Unable to obtain Do you worry about having a steady place to live?: no Comments: Pt. not alert, not oriented. Unable to answer. Pt. lives in a [facility]ci.
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
--- NOTE | 2025-09-10 14:41 | PHA.REVIEW2 ---
Pharmacy Admission Review Admission Clinical Review Admission Pharmacy Review: Concern about end of life (Acute) Urinary tract infection (Acute) Severe sepsis (Acute) Rash (Acute) Infectious encephalopathy (Acute) Cholecystitis (Acute) Septic shock (Acute) Severe aortic valve stenosis (Acute) CKD stage 3b, GFR 30-44 ml/min (Acute) sulfamethoxazole Adverse Reaction (Mild, Verified 09/06/25 12:06) NAUSEA trimethoprim Adverse Reaction (Mild, Verified 09/06/25 12:06) NAUSEA MELISSA Inhibitors Adverse Reaction (Unknown, Verified 09/06/25 12:06) RENAL INSUFFIENCIENCY benazepril Adverse Reaction (Unknown, Verified 09/06/25 12:06) unknown lovastatin Adverse Reaction (Unknown, Verified 09/06/25 12:06) LIGHTHEADEDNESS methyldopa Adverse Reaction (Unknown, Verified 09/06/25 12:06) unknown simvastatin (From Zocor) Adverse Reaction (Unknown, Verified 09/06/25 12:06) BODY ACHES W/ HIGHER DOSES Resuscitation Status DNR/DNI Height 4 ft 8 in Weight 43.7 kg Comments Comments/Follow Ups: Palliative consult pending Pharmacy Admission Review Renal Dosing Renal Dosing: BUN 24 mg/dL (9-23) H 09/10/25 06:45 Creatinine 1.24 mg/dL (0.55-1.02) H 09/10/25 06:45 Medications needing adjustments: Reviewed (CrCl 22.1 mL/min, BUN and SCr decreased) List of meds needing interventions: Current medications are okay (cefepime renally dosed) Anticoagulation Anticoagulation: Hgb 8.2 g/dL (11.2-15.7) L 09/09/25 06:15 Hct 26.6 % (36.0-46.0) L 09/09/25 06:15 Plt Count 174 10^3/uL (130-400) 09/09/25 06:15 Creatinine 1.24 mg/dL (0.55-1.02) H 09/10/25 06:45 DVT Prophylaxis: Reviewed Medications: Enoxaparin (30mg daily) Opiate Usage Evaluate Pain Scale/Pains Meds: Reviewed (has order for morphine 1mg IVP q3h PRN - 6mg/24hrs) Scheduled Bowel Reg ordered if on Opiates?: No (PRN Miralax) Relevant Labs Relevant Labs: ESR 41 mm/hr (0-30) H 09/06/25 18:45 Sodium 138 mmol/L (136-145) 09/10/25 06:45 Potassium 4.7 mmol/L (3.5-5.1) 09/10/25 06:45 Chloride 106 mmol/L (98-107) 09/10/25 06:45 Magnesium 2.1 mg/dL (1.6-2.6) 09/07/25 06:50 C-Reactive Protein 4.09 mg/dL (<=0.50) H 09/06/25 18:45 Electrolytes, C-Reactive P, ESR: Reviewed Cardiac Review Cardiac Review: Troponin I 19 ng/L (<35) 09/06/25 18:45 BP, HR, EF%: Reviewed (BP and HR WNL) List meds needing interventions: Has order for bisoprolol 5mg BID QTc Review QTc: Reviewed (478 from 09/06/25) IV to PO Switch IV Medications: Reviewed (cefepime and morphine) Home Meds Home Med List reviewed: Reviewed Relevent Home Meds Not ordered & why?: vitamin C, benzonatate (PRN), Breo (changed to Symbicort per pharmacy protocol), furosemide (PRN) and magnesium Current Meds Current Medication Order Review: Reviewed Pharmacy Antibiotic Review Relevant Labs: WBC 9.05 10^3/uL (4.4-10.8) 09/09/25 06:15 Temperature 36.4 C Temperature 36.5 C Microbiology 09/06/25 19:25 Blood Culture - Preliminary Blood NO GROWTH 72 HOURS 09/06/25 19:40 Blood Culture - Preliminary Blood NO GROWTH 72 HOURS Pharmacy Antibiotic Activity: C/S review and Reviewed, no change Comments: Patient is on cefepime, day 4, for septic shock/cholecystitis Comments Comments/Follow Ups: Palliative consult pending
--- NOTE | 2025-09-10 17:45 | PGE_ITS ---
Date of Service Date of service: 09/10/25 Time of Service: 17:45 Assessment and Plan Assessment and plan (1) Comfort measures only status: Status: Acute Assessment and plan: She seems to be dying despite therapy. 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 I totally support this decision. Stop all but comfort meds including IV fluids. (2) Severe sepsis: Status: Acute Assessment and plan: - Patient met criteria for severe sepsis on admission with HR > 110,RR 30s, presumed source of infection being possible cholecystitis seen on CT vs UTI and initial lactic of 4.5 - Since resolved but MS did not improve. Discontinuing antibiotics. (3) Cholecystitis: Status: Acute Assessment and plan: - Possible source of infection, unclear on CT vs u/s, HIDA did not help clarify, but she would have been poor candidate for intervention. (4) Rash: Status: Acute Assessment and plan: - resolved. Can use creams prn itch. (5) Severe aortic valve stenosis: Status: Acute Assessment and plan: - Likely contributing to her overall decline. Not surgical candidate. (6) Atrial fibrillation: Status: Chronic Assessment and plan: Stopping rate control and anticoagulation Subjective Subjective Patient reports: denies vomiting or fever Interval history since last seen: HIDA scan done Met with palliative care Yoselin Langley Not eating, minimally responsive Exam Narrative Exam Narrative: Chronically ill-appearing nonverbal female lying in bed in no acute distress at rest, more somnolent, grimaces and yells with repositioning lungs normal effort CV: regular EXT: no edema. right arm/leg contracted. skin: warm, dry, no visible rash, pale, no open wounds Objective Last Vital Signs Temp 36.4 C L 09/10/25 11:25 Pulse 63 09/10/25 11:25 Resp 16 09/10/25 11:25 BP 116/62 09/10/25 11:25 Pulse Ox 96 09/10/25 11:25 Laboratory Results - last 24 hr 09/10/25 06:45 Sodium 138 Potassium 4.7 Chloride 106 Carbon Dioxide 24.0 Anion Gap 8 BUN 24 H Creatinine 1.24 H Est GFR (CKD-EPI 2020) 40.95 Glucose 79 Calcium 9.2 Total Bilirubin 0.5 Conjugated Bilirubin 0.2 AST 28 ALT 18 Alkaline Phosphatase 77 Total Protein 6.4 Albumin 3.2 VTE Prohylaxis Risk Level: Moderate/High Risk Contraindications: None Prophylaxis: Pharmacologic Time Spent with Patient Time Spent with Patient: 25-34 minutes Time was spent: preparing to see the patient(eg.review tests), obtaining and/or reviewing separately otained hiistory, ordering medications,tests, procedures, referring, communicating with other health home health care case manager, indepentently interpreting results, counseling the patient and care coordination
[2025-09-10] MEDS: Glycopyrrolate 0.2 MG/1 ML VIAL IVP (20:54)
[2025-09-11] MEDS: MORPHine 2 MG/ML SYR 1 MG IVP ×6 (01:18→22:49)
[2025-09-11] MEDS: LORazepam 2 MG/ML VIAL 1 MG IVP ×4 (04:39→22:49)
[2025-09-11] MEDS: Normal Saline Flush 10 ML SYR IVP ×7 (04:39→22:50)
--- NOTE | 2025-09-11 08:54 | PDOC.CMPRO ---
Date of service: 09/11/25 Time of Service: 11:34 Care Management Progress Note Progress Note Text Progress Note Text: Per advanced directives, Reta has a pre-need contract for final arrangements with [facility]; however, [facility] does not currently have this contract on file. CM contacted Kim, who plans to reach out to [facility] directly to coordinate and confirm the details of the final arrangements. At this time, Reta was resting in bed and appeared comfortable. She was accompanied by her grandson, who was present in the room. CM will continue to follow. Discharge Plan: Anticipate Reta remain at [facility] through end of life care. Final arrangements will be discussed with family, tomorrow. CM will follow. Social Determinants of Health Screening Will the Patient Participate in the Screening?: Unable to obtain Do you worry about having a steady place to live?: no Comments: Pt. not alert, not oriented. Unable to answer. Pt. lives in a half-way.
--- NOTE | 2025-09-11 12:59 | W.NUTRFU ---
Date of service: 09/11/25 Time of Service: 12:59 Nutrition Note NOTE: Chart reviewed. 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 PT has not been eating or taking fluids. No aggressive nutrition intervention planned at this time. Time Spent in Nutritional Counseling and Treatment: 5 min
--- NOTE | 2025-09-11 14:17 | PGE_ITS ---
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 Baseline severe likely contributing. Her AD dictated comfort focused care at end of life, family on board. Now comfort meds only. She appears comfortable 09/11, urine output trailing off. Expect prognosis of a few days. (2) Rash: Status: Acute Assessment and plan: - has not recurred. Can use creams prn itch. Subjective Subjective Interval history since last seen: some irregular breathing overnight per RN. Nothing po. No concerns per grandson at her side. Exam Narrative Exam Narrative: Chronically ill-appearing nonverbal female lying in bed in no acute distress at rest, somnolent lungs normal effort EXT: no edema. right arm/leg contracted. skin: warm, dry, no visible rash, pale, no open wounds Objective Last Vital Signs Temp 36.4 C L 09/10/25 11:25 Pulse 63 09/10/25 11:25 Resp 16 09/10/25 11:25 BP 116/62 09/10/25 11:25 Pulse Ox 96 09/10/25 11:25 VTE Prohylaxis Risk Level: Moderate/High Risk Contraindications: None Prophylaxis: Pharmacologic Time Spent with Patient Time Spent with Patient: 25-34 minutes Time was spent: preparing to see the patient(eg.review tests), obtaining and/or reviewing separately otained hiistory, referring, communicating with other health long term acute care registered nurse and care coordination
--- NOTE | 2025-09-11 14:32 | CHAPLAIN ---
I have checked in on Reta a few times today. Her grandson, Say, was here this morning, and had spent the night. He said Reta helped raise him and they are very close. Reta seems comfortable, and not responsive. This afternoon, Say's mom was with Reta so Say could go home to rest. He did not want Reta to be alone. Say's mom said that Reta will appear restless, but just for a few seconds at a time, and then settle down again. Reta is here on comfort measures for end of life care.
--- NOTE | 2025-09-11 16:57 | NUR.NOTE ---
Nursing Note: Daughter Kim stated mother prefers [facility] on [address] [place] [address], formerly known as [facility].
[2025-09-11] MEDS: Glycopyrrolate 0.2 MG/1 ML VIAL IVP (17:12)
[2025-09-11] MEDS: Acetaminophen 650 MG SUPP PR (22:50)
[2025-09-12] MEDS: MORPHine 2 MG/ML SYR 1 MG IVP ×4 (02:11→08:47)
[2025-09-12] MEDS: Glycopyrrolate 0.2 MG/1 ML VIAL IVP (02:12)
[2025-09-12] MEDS: LORazepam 2 MG/ML VIAL 1 MG IVP ×3 (02:12→08:45)
[2025-09-12] MEDS: Normal Saline Flush 10 ML SYR IVP ×2 (03:23→04:14)
--- NOTE | 2025-09-12 08:36 | W.PALPGNOTE ---
Date of service: 09/12/25 Time of Service: 08:00 Assessment and Plan Assessment and plan (1) Comfort measures only status: Status: Acute Assessment and plan: Reta will remain in hospital through end of life; life expectancy anticipated hours to days - apnea periods, longest reported 20s overnight; secretions well managed - urine output remains elevated, anticipate will reduce; no oral intake - limited wakeful periods, more w/increased pain continue all comfort meds w/pain, agitation/restlessness and respiratory secretions as today's top symptoms - consider Haldol for restlessness w/Ativan if needed (2) Pain: Status: Acute Assessment and plan: add morphine 2mg q4h scheduled continue morphine 1mg q30m PRN consider pump based on how she does today (3) Palliative care encounter: Status: Acute Assessment and plan: PC available today as needed anticipate no further follow up at this time (4) ACP (advance care planning): Status: Acute Assessment and plan: reviewed w/family goals of comfort; may consider pump for appropriate pain management, will try scheduled medications at this time; some concern that flushes bother Reta, if this remains true, recommend pump started to avoid this discomfort reviewed agitation, pain and restlessness management Subjective Subjective Interval history since last seen: Reta remains hospitalized for end of life, comfort directed care; granddaughter Donnie at bedside, she spent the night Overnight she had some IV access issues w/discomfort/agitation. New IV placed w/o issue Pain: morphine 1mg IVP has been working for pain, required 3 doses overnight, but granddaughter reports IV was leaking, unsure if she was getting medication. Feels pain is managed w/morphine but concerned that may get behind in pain. reports she becomes more conscious when she is in more pain, it will wake her up. She has a furrowed brow, grimace, restlessness w/pain. She is starting to show these signs now - last dose 04:13 Agitation/restlessness: intermittent, worse w/pain. lorazepam 1mg q2h PRN w/good effect, required 2 doses overnight Urine: 430cc in 12 hours overnight. BM: no bowel movements Activity: mostly asleep, will get restless and wake w/increased pain, returns to sleep w/pain managed Respirations: periods of apnea lasting 5-10s most often 1 period of 20seconds overnight; secretions well managed w/Robinol Exam Narrative Exam Narrative: General:older adult female, chronically ill/frail appearing; lying in bed; groan/restlessness w/furrowed brow x2 during visit, otherwise lying comfortably and relaxed HEENT: temporal wasting, atraumatic; dry MM; Resp: mouth breathing, no audible respiratory breath sounds, even and unlabored Skin: pale, atrophy Psych: does not open eyes or attempt to communicate throughout visit Objective Last Vital Signs Temp 97.5 F L 09/10/25 11:25 Pulse 63 09/10/25 11:25 Resp 16 09/10/25 11:25 BP 116/62 09/10/25 11:25 Pulse Ox 96 09/10/25 11:25
--- NOTE | 2025-09-12 08:44 | CMPROGNOTE_ITS ---
Date of service: 09/12/25 Time of Service: 11:26 Care Management Progress Note Progress Note Text Progress Note Text: Reta was lying in bed and appeared comfortable at the time CM met with her. She was accompanied by her granddaughter, Donnie. Per Donnie, Reta had a rough night, as she was agitated and required a new IV after the previous one began leaking due to Reta attempting to remove it. Palliative care followed up with Reta this morning. Per [facility], Reta will be brought over [place] presents that [facility]. CM will continue to follow. Discharge Plan: Anticipate Reta remain at [facility] through end of life care. Final arrangements will be coordinated by the family. CM will follow. Social Determinants of Health Screening Will the Patient Participate in the Screening?: Unable to obtain Do you worry about having a steady place to live?: no Comments: Pt. not alert, not oriented. Unable to answer. Pt. lives in a custodial.
[2025-09-12] MEDS: MORPHine 2 MG/ML SYR IVP ×3 (12:29→19:54)
--- NOTE | 2025-09-12 13:40 | CHAPLAIN ---
Reta is here on comfort measures and will stay here for end of life care. She's being followed by Palliative Care and Yoselin Langley, FELICITAS, saw her today. Family member have been taking turns staying with Reta. Her granddaughter said Reta had a rough night. She appears comfortable today, the two times I've visited. Her niece was visiting with her and offered to contact Reta's pentecostal, the [facility] [employer]. I will continue to visit.
--- NOTE | 2025-09-12 16:24 | W.PM.PROGNOT ---
Date of Service Date of service: 09/12/25 Time of Service: 08:00 Assessment and Plan Assessment and plan (1) Comfort measures only status: Status: Acute Assessment and plan: Reta will remain in hospital through end of life; life expectancy anticipated hours to days - apnea periods, longest reported 20s overnight; secretions well managed - urine output remains elevated, anticipate will reduce; no oral intake - limited wakeful periods, more w/increased pain continue all comfort meds w/pain, agitation/restlessness and respiratory secretions as today's top symptoms - consider Haldol for restlessness w/Ativan if needed Sep 12: increased pain regimen. Appreciate palliative care consult. (2) Pain: Status: Acute Assessment and plan: add morphine 2mg q4h scheduled continue morphine 1mg q30m PRN consider pump based on how she does today (3) Palliative care encounter: Status: Acute Assessment and plan: PC available today as needed anticipate no further follow up at this time (4) ACP (advance care planning): Status: Acute Assessment and plan: reviewed w/family goals of comfort; may consider pump for appropriate pain management, will try scheduled medications at this time; some concern that flushes bother Reta, if this remains true, recommend pump started to avoid this discomfort reviewed agitation, pain and restlessness management Subjective Subjective Interval history since last seen: Ms. Hogan has more pain and her meds are adjusted. No overnight events. Exam Narrative Exam Narrative: General: This is a chronically ill-appearing, frail elderly woman in bed HEENT: Temporal wasting, dry mucous membranes CV: RRR Resp: mouth breathing, no increased work of breathing Abd: soft, NTND MSK: voluntary motion x4 Neuro: somnolent, not rousable Objective Last Vital Signs Temp 36.4 C L 09/10/25 11:25 Pulse 63 09/10/25 11:25 Resp 16 09/10/25 11:25 BP 116/62 09/10/25 11:25 Pulse Ox 96 09/10/25 11:25 VTE Prohylaxis Risk Level: Moderate/High Risk Contraindications: None Prophylaxis: Pharmacologic Time Spent with Patient Time Spent with Patient: 35-49 minutes Time was spent: preparing to see the patient(eg.review tests), obtaining and/or reviewing separately otained hiistory, ordering medications,tests, procedures, referring, communicating with other health home child care provider, indepentently interpreting results, counseling the patient and care coordination
[2025-09-13] MEDS: MORPHine 2 MG/ML SYR IVP ×6 (00:12→16:57)
[2025-09-13] MEDS: Normal Saline Flush 10 ML SYR IVP ×8 (04:00→18:04)
--- NOTE | 2025-09-13 11:31 | CHAPLAIN ---
LNAs were attending to Reta when I visited, and her daughter was there. Family members have been taking turns staying with Reta. Yesterday the hand rigger from the [facility] spent some time with Reta and her daughter. Reta is receiving comfort care. She is not speaking at this time. She is well supported by family members.
[2025-09-13] MEDS: Glycopyrrolate 0.2 MG/1 ML VIAL IVP ×3 (13:15→17:25)
[2025-09-13] MEDS: LORazepam 2 MG/ML VIAL 1 MG IVP ×2 (13:58→16:14)
--- NOTE | 2025-09-13 15:17 | W.PM.PROGNOT ---
Objective Last Vital Signs Temp 36.4 C L 09/10/25 11:25 Pulse 63 09/10/25 11:25 Resp 16 09/10/25 11:25 BP 116/62 09/10/25 11:25 Pulse Ox 96 09/10/25 11:25 VTE Prohylaxis Risk Level: Moderate/High Risk Contraindications: None Prophylaxis: Pharmacologic
[2025-09-13] MEDS: MORPHine 2 MG/ML SYR 1 MG IVP (16:04)
[2025-09-13] MEDS: LORazepam 2 MG/ML VIAL IVP (18:04)
--- NOTE | 2025-09-13 18:27 | EXPE_ITS ---
Date of service: 09/13/25 Time of Service: 18:27 Discharge Plan Disposition Patient Disposition: Discharge Details Reason For Visit: Septic Shock, Cholecystitis Admit Date/Time: 09/06/25 21:19 Admit Provider: Gagandeep Betancourt Attending Provider: Gagandeep Betancourt Primary Care Provider: Unknown,Unknown Hospital Course Hospital Course: Time of 18:23. Discharge Data Cause of : Septic shock Discharge Date/Time-TO BE ENTERED AT DEPARTURE: 09/13/25 18:41 Discharge Sum: Prov Provider Consults: 09/07/25 15:58 Palliative Care Consult [CONS] Routine Consultation Status:: Follow-up needed Clarification:: Manage/follow per spec. Reason for consult:: recurrent admissions, h/o CVA R hemiparesis 09/10/25 17:06 Organizational Effectiveness Director Consult [CONS] Routine Consultation Status:: Follow-up needed Clarification:: Manage/follow per spec. Reason for consult:: Pt will remain hospitalized thru EOL Discharge Sum: Diag PCOD Cause of : Septic shock Contributing Factors (1) Cholecystitis: (2) Severe aortic valve stenosis: Discharge Sum: Summary Date and Time Admission Date: 09/06/25 Date of : 09/13/25 Time of : 18:23 Summary Details: Patient admitted with cholecystitis; risks of surgery unacceptable to patient and family. Goals of care discussed with palliative care service and she was placed on comfort measures only on September 10. She had pain requiring narcotics for comfort. On September 13 at 18:23 she passed with several family members at bedside. Condolences and gratitude expressed to family.
== END 2025-09-13 18:41 | disposition expired | DRG 871 ==
LOC: ER 21:09 → MS 22:08
PROVIDERS: Family Medicine; Admitting Provider Family Medicine; Emergency Provider Physician Assistant; Responsible Provider Family Medicine; Visit Provider Family Medicine
DX: A41.9 Sepsis, unspecified organism (principal); R65.21 Severe sepsis with septic shock; G93.49 Other encephalopathy; R21 Rash and other nonspecific skin eruption; I35.0 Nonrheumatic aortic (valve) stenosis; N18.32 Chronic kidney disease, stage 3b; E03.9 Hypothyroidism, unspecified; N39.0 Urinary tract infection, site not specified; R54 Age-related physical debility; E44.1 Mild protein-calorie malnutrition; Z68.21 Body mass index [BMI] 21.0-21.9, adult; Z51.5 Encounter for palliative care; I69.351 Hemiplegia and hemiparesis following cerebral infarction affecting right dominant side; I48.20 Chronic atrial fibrillation, unspecified; K80.00 Calculus of gallbladder with acute cholecystitis without obstruction; I42.9 Cardiomyopathy, unspecified; I69.320 Aphasia following cerebral infarction; R52 Pain, unspecified; K21.00 Gastro-esophageal reflux disease with esophagitis, without bleeding; D64.9 Anemia, unspecified; H90.3 Sensorineural hearing loss, bilateral; E78.5 Hyperlipidemia, unspecified; I12.9 Hypertensive chronic kidney disease with stage 1 through stage 4 chronic kidney disease, or unspecified chronic kidney disease; M15.9 Polyosteoarthritis, unspecified; E55.9 Vitamin D deficiency, unspecified; J45.909 Unspecified asthma, uncomplicated; Z96.642 Presence of left artificial hip joint; Z66 Do not resuscitate
CPT/HCPCS: 00123; 36415; 74177; 78227; 80048; 80053; 80076; 85027; 85652; 87040; 94640; 96361; 96365; 96375; 99285; 71260; 76705; 81003; 81015; 82140; 83605; 83735; 84439; 84443; 84484; 85025; 86140; 87086; 94664; 99223; 99231; 99232; J0692; J1200; J1596; J1650; J2060; J2270; J2919; J3490